=== PATIENT | male | born 1975 | race Caucasian/White ===

== ENCOUNTER 2020-03-14 16:13 | Emergency (ER) | payer MEDICARE, MEDICAID ==
[~2020-03-14] VITALS: Ht 162.6 cm; Wt 83.9 kg
[2020-03-14] MEDS ORDERED: ONDANSETRON ODT8 MG PO (20:02)
[2020-03-14] MEDS ORDERED: OMEPRAZOLE20 MG PO (22:27)
[2020-03-14] MEDS ORDERED: PROMETHAZINE HC25 M1 PO (22:28)
[2020-03-14] MEDS ORDERED: ZANAFLEX4 MG PO (22:28)
[2020-03-14] MEDS ORDERED: GABAPENTIN300 MG PO (22:28)
[2020-03-14] MEDS ORDERED: DICYCLOMINE HCL10 MG PO (23:48)
== END 2020-03-14 20:14 | disposition home or self-care (01) ==
LOC: ED 16:13
DX: R19.7 Diarrhea, unspecified (principal); R11.10 Vomiting, unspecified; Z87.891 Personal history of nicotine dependence; Z88.0 Allergy status to penicillin
CPT/HCPCS: 76705; 80053; 81001; 83690; 85025; 96361; 96374; 96375; 99284-25; J1170; J1790; J2405; J7030

== ENCOUNTER 2020-03-14 22:05 | Emergency (ER) | payer MEDICARE, MEDICAID ==
[~2020-03-14] VITALS: Ht 162.6 cm; Wt 83.9 kg
[~2020-03-14 22:05] MED LIST: ONDANSETRON ODT8 MG PO
--- OUTSIDE RECORDS SUMMARY | 2020-03-14 22:10 | XMS ---
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 Melania VISIT COUNT (12 MO.) [address] TOTAL 4 NOTE: Visits indicate total known visits. ED/C VISIT TRACKING (12 MO.) 03/14/2020 22:05 [facility] [place] TYPE: Emergency COMPLAINT: - ABDOMINAL PAIN 03/14/2020 16:14 [facility] [place] TYPE: [place] COMPLAINT: - FEVER, VOMITING [facility] DIAGNOSES: 77936. ABD PAIN/VOMITTING . Epigastric pain 33910. Vomiting, unspecified 04/14/2019 14:59 [facility] [place] TYPE: Emergency DIAGNOSES: 73755. COUGHING UP BLACK PHLEGM CLAYTON LOOSING BALANCE . Cough . Headache . Acute frontal sinusitis, unspecified INPATIENT VISIT TRACKING (12 MO.) No inpatient visits to display in this time frame [email or web address]
[2020-03-14] MEDS ORDERED: OMEPRAZOLE20 MG PO (22:27)
[2020-03-14] MEDS ORDERED: ZANAFLEX4 MG PO (22:28)
[2020-03-14] MEDS ORDERED: PROMETHAZINE HC25 M1 PO (22:28)
[2020-03-14] MEDS ORDERED: GABAPENTIN300 MG PO (22:28)
[2020-03-14] MEDS ORDERED: DICYCLOMINE HCL10 MG PO (23:48)
== END 2020-03-14 23:58 | disposition home or self-care (01) ==
LOC: ED 22:05
DX: R10.11 Right upper quadrant pain (principal); R11.2 Nausea with vomiting, unspecified; R19.7 Diarrhea, unspecified; Z87.891 Personal history of nicotine dependence; Z88.0 Allergy status to penicillin; Z79.899 Other long term (current) drug therapy
CPT/HCPCS: 99283

== ENCOUNTER 2020-05-06 10:27 | Emergency (ER) | payer MEDICARE, OTHER ==
[~2020-05-06] VITALS: Ht 162.6 cm; Wt 83.9 kg
--- OUTSIDE RECORDS SUMMARY | ~2020-05-06 | XMS | Encounter Summary ---
Demographics + + + | Address | [address] | | | [place] [address] | + + + | Home Phone | | + + + | Preferred Language | Unknown | + + + | Marital Status | Single | + + + | Hoahaoism Affiliation | NRP | + + + | Race | White | + + + | Ethnic Group | Not or | + + + Author + + + | Author | [facility] | + + + | Organization | [facility] | + + + | Address | Unknown | + + + | Phone | Unavailable | + + + Support + + + + + | Name | Relationship | Address | Phone | + + + + + | Neda Santos | ECON | [place] | | | | | [address] | | + + + + + Care Team Providers + +------+ + | Care Alteration Workroom Supervisor Name | Role | Phone | + +------+ + | Nathalie Castillo | PCP | | + +------+ + Encounter Details +--------+ + + + + | Date | Type | Department | Care Team | Description | +--------+ + + + + | 11/19/ | Procedure - | [facility] [address] | Lora Cuellar, | Operative Report | | 2014 | | [address] | | | | | [place] | [place] | | | | | | [address] | | | +--------+ + + + + Social History + +-------+ +--------+------+ | Tobacco Use | Types | Packs/Day | Years | Date | | | | | Used | | + +-------+ +--------+------+ | Never Assessed | | | | | + +-------+ +--------+------+ + + + | Sex Assigned at | Date Recorded | | | | + + + | Not on file | | + + + + + + + | Job Start Date | Occupation | Industry | + + + + | Not on file | Not on file | Not on file | + + + + + + + + | Travel History | Travel Start | Travel End | + + + + + + | No recent travel history available. | + + documented as of this encounter Plan of Treatment Not on filedocumented as of this encounter Procedures + +--------+ + + + | Procedure Name | Priori | Date/Time | Associated Diagnosis | Comments | | | ty | | | | + +--------+ + + + | OPERATION RECORD | | 11/19/2014 | | Results for this | | | | 7:45 AM | | procedure are in the | | | | PST | | results section. | + +--------+ + + + documented in this [facility] Results OPERATION RECORD (11/19/2014 7:45 AM PST) + + | Transcriptions | + + | 11/20/2014 9:43 AM [facility] | | REPORT OF [id number] [place], [place] [address], [place] [address] | | CHUCK SANTOS ADAGLADIS OF PROCEDURE: 11/19/2014SURGEON: FELTON VogtOSURGEON: | | Allie Schultz, MDPROCEDURE: Screening colonoscopy.SEDATION: IV sedation with | | fentanyl 100 mcg, Versed 7 mg, and ketamine 70 mg.FINDINGS: There was a sessile polyp | | at 80 cm, which was biopsied, another pittinglesion around 80 cm in the transverse | | colon, which was also separately biopsied. Bowelprep was moderately good.INDICATIONS: | | Mr. Santos is a 39-year-old gentleman, who has a family history ofcolon cancer. His last | | colonoscopy was five years ago, and had polyps removedwhich were adenomatous. Risks of | | the procedure, including but not limited to,bleeding, perforation, missed lesion and | | complete exam was explained to him, andthe alternative of doing the varium enema, or | | capsule colonoscopy was explained,and he consented for the same.PREOPERATIVE DISCUSSION: | | PAR conference was held with the patient and thepermission slip was signed prior to | | beginning the procedure and initial vital signswere recorded on the anesthesia record. | | Vital signs were stable throughout theprocedure.DESCRIPTION OF PROCEDURE: With the | | patient on the endoscopy table in the supineposition, an IV was started. The patient's | | sedation was titrated with fentanyl andVersed, as per the anesthesia record. The | | patient was monitored with the pulseoximeter, BP cuff and EKG. The patient was then | | placed in the left lateraldecubitus position. External visual exam and rectal exam was | | normal.T he colonoscope was passed through the anus into therectum and distally through | | the remainder of the colon until the cecum wasidentified. The cecum was identified by | | visualizing the ileocecal valve,coalescence of tinea and the appendiceal orifice, as | | well as localization of thelight in the right lower quadrant. The colonoscope was then | | gradually removed,examining the mucosa circumferentially. Please see findings for | | details ofabnormalities or any manipulations performed. After the colonoscope was | | completed,the scope was removed. The patient tolerated the procedure well.The patient | | was discharged home to the care of family without having suffered anyapparent | | complications. Followup arrangements were made. They were informed tocall us if there | | was any vomiting, fever or abdominal pain.CHUCK SANTOS [id number] : | | [id number] DATE:AL/MedQDD: 11/19/2014 10:30:49DT: 11/20/2014 07:28:32Job | | #: [id number] Signed 11/30/14 | | 1419 | | | | | | | | | | | | | | Anooradha | | JOURDAN Cuellar JAMES [id number] : [id number] DATE: | |rectum and distally through the remainder of the colon until the cecum was | |identified. The cecum was identified by visualizing the ileocecal valve, | |coalescence of tinea and the appendiceal orifice, as well as localization of the | |light in the right lower quadrant. The colonoscope was then gradually removed, | |examining the mucosa circumferentially. Please see findings for details of | |abnormalities or any manipulations performed. After the colonoscope was completed, | |the scope was removed. The patient tolerated the procedure well. | | | |The patient was discharged home to the care of family without having suffered any | |apparent complications. Followup arrangements were made. They were informed to | |call us if there was any vomiting, fever or abdominal pain. | | | | | | | | | | | |CHUCK SANTOS | |[id number] : 77 | |[id number] | |ADMIT DATE: | | | | | | | | | |KAILEE/Gillian | | | | | | /[id number] | |Electronically Signed 11/30/14 1419 | | | | | | Lora Cuellar MD | | | | | | | | | | | | | | | | | | | | | | | | | | | | | | | | | | | | | | | | | | | | | | | | | | | | | | | | | | | | | | | | | | | | | | | | | | | | | | | | | | | | | | | | | | | |CHUCK SANTOS | |[id number] : 77 | |[phone] | |ADMIT DATE: | + + documented in this encounter Visit Diagnoses Not on filedocumented in this encounter"
--- OUTSIDE RECORDS SUMMARY | ~2020-05-06 | XMS | Encounter Summary ---
Demographics + + + | Address | [address] | | | [place] [address] | + + + | Home Phone | | + + + | Preferred Language | Unknown | + + + | Marital Status | Single | + + + | Christianity Affiliation | NRP | + + + | Race | White | + + + | Ethnic Group | Not or | + + + Author + + + | Author | [facility] | + + + | Organization | [facility] | + + + | Address | Unknown | + + + | Phone | Unavailable | + + + Support + + + + + | Name | Relationship | Address | Phone | + + + + + | Neda Castañeda | ECON | [place] | | | | | [phone] | | + + + + + Care Team Providers + +------+ + | Care Refrigerator Crater Name | Role | Phone | + +------+ + | Herbert Marie MD,MP[facility] | PCP | Unavailable | + +------+ + Reason for Visit + + + | Reason | Comments | + + + | Refill Request | Famotidine | + + + Encounter Details +--------+--------+ + + + | Date | Type | Department | Care Team | Description | +--------+--------+ + + + | 02/12/ | Refill | [facility] | Herbert Marie, | Refill Request | | 2017 | | Medicine [address] | ,[facility] | (Famotidine ) | | | | [place], | | | | | | [place] [address] | | | | | | [phone] | | | +--------+--------+ + + + Social History + +-------+ +--------+------+ | Tobacco Use | Types | Packs/Day | Years | Date | | | | | Used | | + +-------+ +--------+------+ | Former Smoker | | | | | + +-------+ +--------+------+ + +---+---+---+ | Smokeless Tobacco: | | | | | Never Used | | | | + +---+---+---+ + + +---------+ + | Alcohol Use | Drinks/Week | oz/Week | Comments | + + +---------+ + | No | 0 Standard drinks | 0.0 | | | | or equivalent | | | + + +---------+ + + + + | Sex Assigned at [...] Not on filedocumented as of this encounter Visit Diagnoses + + | Diagnosis | + + | Epigastric pain Abdominal pain, epigastric | + + documented in this encounter"
--- OUTSIDE RECORDS SUMMARY | ~2020-05-06 | XMS | Encounter Summary ---
Demographics + + + | Address | [address] | | | [place] [address] | + + + | Home Phone | | + + + | Preferred Language | Unknown | + + + | Marital Status | Single | + + + | Oriental Orthodox Affiliation | NRP | + + + | Race | White | + + + | Ethnic Group | Not or | + + + Author + + + | Author | [facility] | + + + | Organization | [facility] | + + + | Address | Unknown | + + + | Phone | Unavailable | + + + Support + + + + + | Name | Relationship | Address | Phone | + + + + + | Neda Castañeda | ECON | [place] | | | | | [address] | | + + + + + Care Team Providers + +------+ + | Care Boil Off Worker Name | Role | Phone | + +------+ + | Herbert Marie MD,MP[facility] | PCP | Unavailable | + +------+ + Reason for Visit + + + | Reason | Comments | + + + | Headache | | + + + | Lightheadedness | | + + + | Closed Head Injury | | + + + Encounter Details +--------+ + + + + | Date | Type | Department | Care Team | Description | +--------+ + + + + | 11/18/ | Emergency | Emergency | Carlin Gaspar, | | | 2016 | | Department at [facility] | MD [address] | | | | | [facility] [address] [place], [place] | | | | | [place], | [address] | | | | | [place] [address] | [phone] | | | | | [phone] | | | +--------+ + + + [...] + + documented as of this encounter Last Filed Vital Signs + + + + + | Vital Sign | Reading | Time Taken | Comments | + + + + + | Blood Pressure | 125/84 | 11/18/2016 4:18 PM | | | | | PST | | + + + + + | Pulse | 78 | 11/18/2016 4:18 PM | | | | | PST | | + + + + + | Temperature | 36.9 C (98.4 F) | 11/18/2016 4:18 PM | | | | | PST | | + + + + + | Respiratory Rate | 18 | 11/18/2016 4:18 PM | | | | | PST | | + + + + + | Oxygen Saturation | 100% | 11/18/2016 4:18 PM | | | | | PST | | + + + + + | Inhaled Oxygen | - | - | | | Concentration | | | | + + + + + | Weight | 86.2 kg (190 lb) | 11/18/2016 4:18 PM | | | | | PST | | + + + + + | Height | - | - | | + + + + + | Body Mass Index | 29.76 | 09/12/2016 9:49 AM | | | | | PST | | + + + + + documented in this encounter Discharge Instructions Instructions Carlin Gaspar MD - 11/18/2016 mandatory follow up with your primary care doctor as soon as possible. I would suggest jigar nickjessica to physical therapy for balance training and treatment for post concussive syndrome. Return to the ER for severe worsening of her condition or any other concerns. Take prescr ibed medication as directed. Postconcussion Syndrome: Care Instructions Your Care Instructions Postconcussion syndrome occurs after a blow to the head or body. Common symptoms are change s in the ability to concentrate, think, remember, or solve problems. Symptoms, which may inc lude headaches, personality changes, and dizziness, may be related to stress from the events surrounding the accident that caused the injury. Follow-up care is a avery part of your treatment and safety. Be sure to make and go to all ap pointments, and call your doctor if you are having problems. It's also a good idea to know y our test results and keep a list of the medicines you take. How can you care for yourself at home? Pain Rest is the best treatment for postconcussion syndrome. Do not drive if you have taken a prescription pain medicine. Rest in a quiet, dark room until your headache is gone. Close your eyes and try to relax or go to sleep. Do not watch TV or read. Put a cold, moist cloth or cold pack on the painful area for 10 to 20 minutes at a time. Put a thin cloth between the cold pack and your skin. Have someone gently massage your neck and shoulders. Take your medicines exactly as prescribed. Call your doctor if you think you are having a problem with your medicine. You will get more details on the specific medicines your docto r prescribes. Stress Try to reduce stress. Some ways to do this include: Taking slow, deep breaths. Soaking in a warm bath. Listening to soothing music. Taking a yoga class. Having a massage or back rub. Drinking a warm, nonalcoholic, noncaffeinated beverage. Get enough sleep. Eat a healthy, balanced diet. A balanced diet includes whole grains, dairy, fruits and v egetables, and protein. Eat a variety of foods from each of those groups so you get all the nutrients you need. Avoid alcohol and illegal drugs. Try relaxation exercises, such as breathing and muscle relaxation exercises. Talk to your doctor about counseling. It may help you deal with stress from your acciden t. When should you call for help? Watch closely for changes in your health, and be sure to contact your doctor if: You do not get better as expected. Your symptoms, such as headaches, trouble concentrating, or changes in mood, get worse. Where can you learn more? To learn more about "Postconcussion Syndrome: Care Instructions", log into your [employer] [place] acc ount at http://www.[facility]/LiveTop. You can enter Q768 in the "[employer] Library" search box. Not on [employer] [place]? Review the MyWebGrocert section of your After Visit Summary for directions on booker cardoza to sign up. Current as of: November 18, 2015 Content Version: [id number] [employer]. Care instructions adapted under license by [facility] [employer]. If you have questions about a medical condition or this instr uction, always ask your healthcare professional. [employer] disclaims any nina anty or liability for your use of this information. documented in this encounter Plan of Treatment Not on filedocumented as of this encounter Visit Diagnoses + + | Diagnosis | + + | Closed head injury, initial encounter - Primary | + + | Post concussive syndrome Postconcussion syndrome | + + | Vertigo Dizziness and giddiness | + + documented in this encounter Administered Medications + +--------+ +------+------+------+ | Medication Order | MAR | Action | Dose | Rate | Site | | | Action | Date | | | | + +--------+ +------+------+------+ | diazePAM (VALIUM) tablet 5 mg | Given | 11/18/19 | 5 mg | | | | 5 mg, oral, ONCE, 1 dose, Sun | | 17 4:47 | | | | | 11/18/16 at 1715 | | PM PST | | | | + +--------+ +------+------+------+ +---+---+ | | | +---+---+ + +-------+ +-------+---+---+ | meclizine (ANTIVERT) tablet 25 | Given | 11/18/19 | 25 mg | | | | mg 25 mg, oral, ONCE, 1 dose, | | 17 4:47 | | | | | 11/18/16 at 1715 | | PM PST | | | | + +-------+ +-------+---+---+ +---+---+ | | | +---+---+ documented in this encounter
--- OUTSIDE RECORDS SUMMARY | ~2020-05-06 | XMS | Encounter Summary ---
Demographics + + + | Address | [address] | | | [place] [address] | + + + | Home Phone | | + + + | Preferred Language | Unknown | + + + | Marital Status | Single | + + + | Sabianism Affiliation | NRP | + + + | Race | White | + + + | Ethnic Group | Not or | + + + Author + + + | Author | [facility] | + + + | Organization | [facility] | + + + | Address | Unknown | + + + | Phone | Unavailable | + + + Support + + + + + | Name | Relationship | Address | Phone | + + + + + | Neda Castañeda | ECON | [place] | | | | | [address] | | + + + + + Care Team Providers + +------+ + | Care Fish Worm Grower Name | Role | Phone | + +------+ + | Herbert Marie MD,MPH | PCP | Unavailable | + +------+ + Encounter Details +--------+ + + + + | Date | Type | Department | Care Team | Description | +--------+ + + + + | 06/21/ | MyChart | [facility] | Herbert Marie, | labs | | 2016 | Encounter | Medicine [address] | ,[facility] | | | [address] [place], | | | | | | [place] [address] | | | | | | [phone] | | | +--------+ + + + [...] filedocumented as of this encounter Visit Diagnoses Not on filedocumented in this encounter"
--- OUTSIDE RECORDS SUMMARY | ~2020-05-06 | XMS | Encounter Summary ---
Demographics + + + | Address | [address] | | | [place] [address] | + + + | Home Phone | | + + + | Preferred Language | Unknown | + + + | Marital Status | Single | + + + | Restorationist Affiliation | NRP | + + + | Race | White | + + + | Ethnic Group | Not or | + + + Author + + + | Author | [facility] | + + + | Organization | [facility] | + + + | Address | Unknown | + + + | Phone | Unavailable | + + + Support + + + + + | Name | Relationship | Address | Phone | + + + + + | Neda Castañeda | ECON | [place] | | | | | [address] | | + + + + + Care Team Providers + +------+ + | Care Aerodynamic Consultant Name | Role | Phone | + +------+ + | Miguel A Peraza PA-C | PCP | | + +------+ + Reason for Visit + + + | Reason | Comments | + + + | Low back pain | Left sided back pain radiating down hip. This started yesterday. | + + + Encounter Details +--------+ + + + + | Date | Type | Department | Care Team | Description | +--------+ + + + + | 12/10/ | Emergency | Emergency | | | | 2017 | | Department at [facility] | | | | | | Hospital [address] | | | | | | [place], | | | | | | [place] [address] | | | | | | [phone] | | | +--------+ + + + + Social History + +-------+ +--------+ + | Tobacco Use | Types | Packs/Day | Years | Date | | | | | Used | | + +-------+ +--------+ + | Former Smoker | | | | Quit: 03/08/2015 | + +-------+ +--------+ + + +---+---+---+ | Smokeless Tobacco: | | [...] + + + | Blood Pressure | 140/91 | 12/10/2017 2:09 PM | | | | | PDT | | + + + + + | Pulse | 80 | 12/10/2017 2:09 PM | | | | | PDT | | + + + + + | Temperature | 36.8 C (98.2 F) | 12/10/2017 2:09 PM | | | | | PDT | | + + + + + | Respiratory Rate | 16 | 12/10/2017 2:09 PM | | | | | PDT | | + + + + + | Oxygen Saturation | 96% | 12/10/2017 2:09 PM | | | | | PDT | | + + + + + | Inhaled Oxygen | - | - | | | Concentration | | | | + + + + + | Weight | - | - | | + + + + + | Height | - | - | | + + + + + | Body Mass Index | - | - | | + + + + + documented in this encounter Plan of Treatment Not on filedocumented as of this encounter Visit Diagnoses Not on filedocumented in this encounter"
--- OUTSIDE RECORDS SUMMARY | ~2020-05-06 | XMS | Encounter Summary ---
Demographics + + + | Address | [address] | | | [place] [address] | + + + | Home Phone | | + + + | Preferred Language | Unknown | + + + | Marital Status | Single | + + + | Synagogue Affiliation | NRP | + + + | Race | White | + + + | Ethnic Group | Not or | + + + Author + + + | Author | [facility] | + + + | Organization | [facility] | + + + | Address | Unknown | + + + | Phone | Unavailable | + + + Support + + + + + | Name | Relationship | Address | Phone | + + + + + | Neda Castañeda | ECON | [place] | | | | | [address] | | + + + + + Care Team Providers + +------+ + | Care Manager Sterile Name | Role | Phone | + +------+ + | Herbert Marie MD,MPH | PCP | Unavailable | + +------+ + Reason for Visit + + + | Reason | Comments | + + + | Prediabetes | follow-up | + + + | Hyperlipidemia | follow-up | + + + Encounter Details +--------+---------+ + + + | Date | Type | Department | Care Team | Description | +--------+---------+ + + + | 03/13/ | Office | [facility] | Herbert Marie, | Prediabetes (Primary | | 2017 | Visit | Medicine [address] | MD,MPH | Dx); Mixed | | | | [address] [place], | | hyperlipidemia; | | | | [place] [id number] | | Elevated ALT | | | | [phone] | | measurement; | | | | | | Hypocalcemia; | | | | | | Recurrent kidney | | | | | | stones | +--------+---------+ + + + Social History + +-------+ [...] + + + | Blood Pressure | 110/78 | 03/13/2017 8:44 AM | | | | | PDT | | + + + + + | Pulse | 60 | 03/13/2017 8:44 AM | | | | | PDT | | + + + + + | Temperature | - | - | | + + + + + | Respiratory Rate | - | - | | + + + + + | Oxygen Saturation | 98% | 03/13/2017 8:44 AM | | | | | PDT | | + + + + + | Inhaled Oxygen | - | - | | | Concentration | | | | + + + + + | Weight | 85.7 kg (189 lb) | 03/13/2017 8:44 AM | | | | | PDT | | + + + + + | Height | 162.6 cm (5' 4") | 03/13/2017 8:44 AM | | | | | PDT | | + + + + + | Body Mass Index | 32.44 | 03/13/2017 8:44 AM | | | | | PDT | | + + + + + documented in this encounter Patient Instructions Patient Instructions Herbert Marie MD,MPH - 03/13/2017 9:00 AM PDTTest results will be r eleased through [employer] or sent as a letter. It may take 4-5 days for the results to be released. Call us if you do not receive results in 2 weeks. Thanks. Herbert Marie MD, MPH 03/13/17 9:20 AM documented in this encounter Progress Notes Herbert Marie MD,MPH - 03/13/2017 9:00 AM PDT Chief Complaint Patient presents with Prediabetes follow-up Hyperlipidemia follow-up Assessment Assessment / Plan PREDIABETES Controlled? - unknown - need current lab HYPERLIPIDEMIA Controlled? - unknown Mendez was seen today for prediabetes and hyperlipidemia. Diagnoses and all orders for this visit: Prediabetes - HEMOGLOBIN A1C, BLOOD; Future Mixed hyperlipidemia - LIPID SET (TRIG, T CHOL, HDL, CALC LDL); Future Elevated ALT measurement Comments: normal since prior elevation Orders: - COMPLETE METABOLIC SET (NA,K,CL,CO2,BUN,CREAT,GLUC,CA,AST,ALT,BILI TOTAL,ALK PHOS,ALB ,PROT TOTAL); Future Hypocalcemia Comments: noted during recent admission Orders: - COMPLETE METABOLIC SET (NA,K,CL,CO2,BUN,CREAT,GLUC,CA,AST,ALT,BILI TOTAL,ALK PHOS,ALB ,PROT TOTAL); Future Recurrent kidney stones - UA, DIPSTICK W/ REFLEX; Future Return in about 6 months (around 09/12/2017) for PREDM, HLD. Patient Instructions Test results will be released through [employer] or sent as a letter. It may take 4-5 days for the results to be released. Call us if you do not receive results in 2 weeks. Thanks. Herbert Marie MD, MPH 03/13/17 9:20 AM Subjective Recent admission for vomiting, diarrhea Lipase elevated but returned to normal Hypocalcemia on last lab Thought due to viral GE Symptoms have completely resolved PREDIABETES = = = = = = = = = = Severity/control: A1c - Lab Results Component Value Date A1C 5.6 09/12/2016 Home monitoring: Patient's goal met? ===== A1c - <7 - unknown ADA 09 - goal <7 - check A1c twice a year if meeting goal and quarterly if not at goal or change therapy A1c goal options: <6.5 - short duration of diabetes, long life expectancy, and no significant CVD 6.5 - 7.0 - non adult with recent onset DMII 7.0 - 7.5 - older adult, newly diagnosed DMII, few comorbidities, and life expectancy > 10 years 7.5 - 8.0 - older adult, long-standing DM, moderate comorbidities, and life expectancy 5 - 10 years 8.0 - 9.0 - older adult, multiple comorbidities, functional or cognitive impairments, a nd life expectancy <5 years BLOOD PRESSURE= = = = = = = = = = BP Readings from Last 3 Encounters: 03/13/17 110/78 03/09/17 (!) 152/97 02/20/17 130/72 Patient's goal met? ===== BP - <140/90 - Yes HYPERCHOLESTEROLEMIA= = = = = = = = = = Lab Results Component Value Date CHOL 272 09/12/2016 LDL 200 09/12/2016 HDL 34 09/12/2016 TRI 190 09/12/2016 Started on atorvastatin after this result Patient's goal met? ===== LDL < 100 mg/dl (CHD or "CHD risk equivalent" is present) - ? TG <150 - ? HDL >40 - ? ATP IV - drug treatment Clinical ASCVD - statin to achieve >50% LDL reduction if <75 yo, 30-50% LDL reduction i f >75 yo Diabetes - statin to achieve >50% LDL reduction if 10-yr ASCVD risk >7.5%, 30-50% LDL reduction if 10-yr ASCVD risk <7.5% LDL >190 and no clinical ASVCD in 40-75 yo - statin to achieve >50% LDL reduction LDL 70-190 and no clinical ASCVD in 40-75 yo - statin to achieve 30-50% or >50% LDL red uction if 10-yr ASCVD risk >7.5% Adherence DM med(s) taken regularly Not prescribed HLD med taken regularly Yes Med side effects There are no noted side effects ROS/Target organ Lab Results Component Value Date CR 1.2 03/09/2017 CR 1.2 03/08/2017 CR 1.2 03/08/2017 Microalbumin RESUFAST(microalbumin,uralbumin,mpuofz08y,urcreatconc)@ not done Other CAD Risk Factors Smoking History Smoking Status Former Smoker Quit date: 03/08/2015 Smokeless Tobacco Never Used Weight Body mass index is 32.44 kg/(m^2). Wt Readings from Last 3 Encounters: 03/13/17 85.7 kg (189 lb) 03/08/17 82.4 kg (181 lb 10.5 oz) 02/20/17 87.5 kg (193 lb) Chemoprophylaxis ACEi/ARB - No ASA - No Immunizations Immunization History Administered Date(s) Administered Flu trivalent injectable pfree 10/11/2014 Influenza Injectable Quadrivalent (IIV4 P-Free) 06/21/2016 Td (adult), adsorbed 09/30/2010 Varicella 07/05/2016, 08/02/2016 Reviewed allergies, medications, past and family/social history, problem list. Review of Systems Constitutional: Negative for chills, diaphoresis, fever, malaise/fatigue and weight loss. HENT: Negative for congestion, ear discharge, ear pain, hearing loss, nosebleeds, sore thro at and tinnitus. Eyes: Negative for blurred vision, double vision, photophobia, pain, discharge and redness. Respiratory: Negative for cough, hemoptysis, sputum production, shortness of breath, wheezi ng and stridor. Cardiovascular: Negative for chest pain, palpitations, claudication and leg swelling. Gastrointestinal: Negative for abdominal pain, blood in stool, constipation, diarrhea, hear tburn, melena, nausea and vomiting. Genitourinary: Negative for dysuria, flank pain, frequency, hematuria and urgency. Musculoskeletal: Negative for back pain, falls, joint pain, myalgias and neck pain. Skin: Negative for itching and rash. Neurological: Negative for dizziness, tingling, tremors, sensory change, speech change, foc al weakness, seizures, loss of consciousness, weakness and headaches. Endo/Heme/Allergies: Negative for environmental allergies and polydipsia. Does not bruise/b leed easily. Psychiatric/Behavioral: Negative for depression, hallucinations, memory loss, substance abu se and suicidal ideas. The patient is not nervous/anxious and does not have insomnia. Objective Physical Exam BP 110/78 | Pulse 60 | Ht 1.626 m (5' 4") | Wt 85.7 kg (189 lb) | SpO2 98% | BMI 32.44 kg/( m^2) General : 41 y.o. male well developed, well nourished and in no acute distress HEENT: normocephalic, atraumatic. PER, mucus membranes moist Neck: supple, symmetrical, trachea midline, no adenopathy, thyroid normal, No carotid bru it Lungs: clear to auscultation bilaterally and no wheezes, rubs or rales Heart: regular rate and rhythm, S1, S2 normal, no murmur, click, rub or gallop Abdomen: soft, non-tender. Bowel sounds normal. No masses, noorganomegaly MSK: symmetrical with no deformity, with normal posture and gait, normal strength Ext: no pedal edema, no clubbing or cyanosis Neuro: Grossly normal, non-focal documented in this encounter Plan of Treatment Not on filedocumented as of this encounter Results LIPID SET (TRIG, T CHOL, HDL, CALC LDL) (03/13/2017 9:32 AM PDT) + +---------+ + + + | Component | Value | Ref Range | Performed | Pathologist | | | | | At | Signature | + +---------+ + + + | CHOLESTEROL | 181 | 101 - 199 mg/dL | [facility] | | | (LAB) | | | A MEDICAL | | | | | | CENTER | | + +---------+ + + + | TRIGLYCERID | 163 (H) | 45 - 150 mg/dL | [facility] | | | ES | | | A MEDICAL | | | | | | CENTER | | + +---------+ + + + | HDL | 36 (L) | >40 mg/dL | [facility] | | | CHOLESTEROL | | | A MEDICAL | | | | | | CENTER | | + +---------+ + + + | LDL | 112 (H) | <100 mg/dL | [facility] | | | CHOLESTEROL | | | A MEDICAL | | | , | | | CENTER | | | CALCULATED | | | | | + +---------+ + + + | VLDL | 33 (H) | 9 - 30 mg/dL | [facility] | | | CHOLESTEROL | | | A MEDICAL | | | , | | | CENTER | | | CALCULATED | | | | | + +---------+ + + + | NON-HDL | 145 (H) | <130 mg/dL | [facility] | | | CHOLESTEROL | | | A MEDICAL | | | | | | CENTER | | + +---------+ + + + | CARDIAC | 5 | | [facility] | | | RISK RATIO | | | A MEDICAL | | | | | | CENTER | | + +---------+ + + + | FASTING 8 | Yes | | [facility] | | | HOURS OR | | | A MEDICAL | | | MORE? | | | CENTER | | + +---------+ + + + + + | Specimen | + + | Blood - Blood | | (substance) | + + + + + | Narrative | Performed At | + + + | The goal for non-HDL cholesterol is a level 30 mg/dL higher than | [facility] | | that for LDL cholesterol. Cardiac Risk Ratio Interpretation: | MEDICAL [facility]ENTER | | Interpretation Cardiac Risk Ratio Below Average | | | Risk 0.0 - 3.4 Above Average Risk | | | 3.5 - 4.9 | | + + + + + + + + | Performing | Address | City/State/Zipcode | Phone Number | | Organization | | | | + + + + + | [facility] | [address] | [place], [place] | [phone] | | MEDICAL [facility]ENTER | Streets | [address] | | + + + + + COMPLETE METABOLIC SET (NA,K,CL,CO2,BUN,CREAT,GLUC,CA,AST,ALT,BILI TOTAL,ALK PHOS,ALB,PROT TOTAL) (03/13/2017 9:32 AM PDT) + +-------+ + + + | Component | Value | Ref Range | Performed | Pathologist | | | | | At | Signature | + +-------+ + + + | GLUCOSE, | 98 | 70 - 105 mg/dL | [facility] | | | PLASMA | | | A MEDICAL | | | (LAB) | | | CENTER | | + +-------+ + + + | BUN, PLASMA | 13 | 6 - 26 mg/dL | [facility] | | | (LAB) | | | A MEDICAL | | | | | | CENTER | | + +-------+ + + + | CREATININE, | 1.1 | 0.9 - 1.3 mg/dL | [facility] | | | PLASMA | | | A MEDICAL | | | | | | CENTER | | + +-------+ + + + | SODIUM, | 143 | 137 - 146 | [facility] | | | PLASMA | | mmol/L | A MEDICAL | | | (LAB) | | | CENTER | | + +-------+ + + + | POTASSIUM, | 4.3 | 3.4 - 5.3 | [facility] | | | PLASMA | | mmol/L | A MEDICAL | | | (LAB) | | | CENTER | | + +-------+ + + + | CHLORIDE, | 101 | 96 - 106 mmol/L | [facility] | | | PLASMA | | | A MEDICAL | | | (LAB) | | | CENTER | | + +-------+ + + + | TOTAL CO2, | 28 | 18 - 30 mmol/L | [facility] | | | PLASMA | | | A MEDICAL | | | (LAB) | | | CENTER | | + +-------+ + + + | CALCIUM, | 9.4 | 8.5 - 10.8 | [facility] | | | PLASMA | | mg/dL | A MEDICAL | | | (LAB) | | | CENTER | | + +-------+ + + + | BILIRUBIN | 0.2 | 0.2 - 1.2 mg/dL | [facility] | | | TOTAL | | | A MEDICAL | | | | | | CENTER | | + +-------+ + + + | TOTAL | 7.0 | 5.8 - 8.5 g/dL | [facility] | | | PROTEIN, | | | A MEDICAL | | | PLASMA | | | CENTER | | | (LAB) | | | | | + +-------+ + + + | ALBUMIN, | 4.3 | 3.5 - 5.0 g/dL | [facility] | | | PLASMA | | | A MEDICAL | | | (LAB) | | | CENTER | | + +-------+ + + + | ALK PHOS | 61 | 32 - 180 U/L | [facility] | | | | | | A MEDICAL | | | | | | CENTER | | + +-------+ + + + | AST(SGOT) | 13 | 10 - 41 U/L | [facility] | | | | | | A MEDICAL | | | | | | CENTER | | + +-------+ + + + | ALT (SGPT) | 28 | 7 - 51 U/L | [facility] | | | | | | A MEDICAL | | | | | | CENTER | | + +-------+ + + + | EGFR | >60 | >60 mL/min | [facility] | | | - | | | A MEDICAL | | | [facility] | | | CENTER | | + +-------+ + + + | EGFR NON | >60 | >60 mL/min | [facility] | | | -ALIX | | | A MEDICAL | | | [facility] | | | CENTER | | + +-------+ + + + | ANION GAP | 14 | 12 - 20 mmol/L | [facility] | | | | | | A MEDICAL | | | | | | CENTER | | + +-------+ + + + | BUN/CREATIN | 12 | 6 - 20 | [facility] | | | INE RATIO | | | A MEDICAL | | | | | | CENTER | | + +-------+ + + + | FASTING 8 | Yes | | [facility] | | | HOURS OR | | | A MEDICAL | | | MORE? | | | CENTER | | + +-------+ + + + + + | Specimen | + + | Blood - Blood | | (substance) | + + + + + | Narrative | Performed At | + + + | GFR is estimated using the MDRD equation recommended by the | [facility] | | National Kidney Disease Education Program. Estimated GFR | [facility] | | Interpretive Information: <60 mL/min/1.73 sq m | | | Chronic Kidney Disease <15 mL/min/1.73 sq m | | | Kidney Failure Estimated GFR greater that 60 mL/min/1.73 sq m is of | | | limited clinical value. The MDRD equation is not valid in the | | | following situations: - Patients under 18 years of age - Severe | | | malnutrition or obesity - Vegetarian diet - Rapidly changing kidney | | | function | | + + + + + + + + | Performing | Address | City/State/Zipcode | Phone Number | | Organization | | | | + + + + + | [facility] | [address] | [place], [place] | [phone] | | MEDICAL CENTER | [address] | [address] | | + + + + + HEMOGLOBIN A1C, BLOOD (03/13/2017 9:32 AM PDT) + +-------+ + + + | Component | Value | Ref Range | Performed | Pathologist | | | | | At | Signature | + +-------+ + + + | HEMOGLOBIN | 5.7 | % | [facility] | | | A1C | | | A MEDICAL | | | | | | CENTER | | + +-------+ + + + | ESTIMATED | 117 | mg/dL | [facility] | | | [place] | | | A MEDICAL | | | GLUCOSE | | | CENTER | | + +-------+ + + + + + | Specimen | + + | Blood - Blood | | (substance) | + + + + + | Narrative | Performed At | + + + | Glycohemoglobin Recommended Diabetic Ranges per DCCT & ADA: | [facility] | | Normal Range: <6% | MEDICAL CENTER | | Good Control: <7% | | | Additional action suggested: >8% Non-Diabetic | | | Ranges: 4-6% Environmental Services Worker's Glycohemoglobin | | | Diabetic Ranges: Normal Range: | | | 4.0-6.0% Good Control: | | | 6.0-8.0% Poor Control: | | | >8.0% | | + + + + + + + + | Performing | Address | City/State/Zipcode | Phone Number | | Organization | | | | + + + + + | [facility] | [address] | [place], [place] | [phone] | | [facility] [place] | [facility] | [address] | | + + + + + NEREIDA MORILLO (03/13/2017 9:30 AM PDT) + + + + + + | Component | Value | Ref Range | Performed | Pathologist | | | | | At | Signature | + + + + + + | COLOR(UR) | Yellow | Colorless, | [facility] | | | | | Straw, Yellow | [facility] | | | | | [facility] | | | | | | [facility] | | + + + + + + | APPEARANCE | Clear | Clear | [facility] | | | | | | [facility] | | | | | [facility] | | | | | | [facility] | | + + + + + + | PH (URINE) | 6.5 | 5.0 - 8.5 | [facility] | | | | | | [facility] | | | | | [facility] | | | | | | [facility] | | + + + + + + | PROTEIN, | Negative | Negative, Trace | [facility] | | | URINE | | | [facility] | | | [facility] | | | | | | [facility]INE | | + + + + + + | GLUCOSE | Negative | Negative | [facility] | | | (URINE) | | | [facility] | | | | | [facility] | | | | | | MEDICINE | | + + + + + + | KETONES | Negative | Negative | [facility] | | | | | | [facility] | | | | | [facility] | | | | | | [facility] | | + + + + + + | SPECIFIC | 1.015 | 1.005 - 1.030 | [facility] | | | GRAVITY | | | [facility] | | | | | [facility] | | | | | | [facility]INE | | + + + + + + | BILIRUBIN | Negative | Negative | [facility] | | | | | | [facility] | | | | | [facility] | | | | | | MEDICINE | | + + + + + + | BLOOD | Negative | Negative | [facility] | | | | | | [facility] | | | | | [facility] | | | | | | MEDICINE | | + + + + + + | NITRITES | Negative | Negative | [facility] | | | | | | [facility] | | | | | [facility] | | | | | | MEDICINE | | + + + + + + | LEUKOCYTE | Negative | Negative | [facility] | | | ESTERASE | | | [facility] | | | | | | [facility] | | | | | | MEDICINE | | + + + + + + | UROBILINOGE | Negative | Negative mg/dL | [facility] | | | N | | | [facility] | | | | | | FAMILY | | | | | | MEDICINE | | + + + + + + | SOURCE | Clean catch | | [facility] | | | (URINALYSIS | | | [facility] | | | ) | | | FAM[facility] | | | | | | MEDICINE | | + + + + + + + + | Specimen | + + | Urine - Urine | | specimen collection, | | clean catch | | (procedure) | + + + + + + + | Performing | Address | City/State/Zipcode | Phone Number | | Organization | | | | + + + + + | [facility] | [address] [place] [address] | [place] | | | FAMILY MEDICINE | | [address] | | + + + + + documented in this encounter Visit Diagnoses + + | Diagnosis | + + | Prediabetes - Primary Other abnormal glucose | + + | Mixed hyperlipidemia | + + | Elevated ALT measurement Nonspecific elevation of levels of transaminase or lactic | | acid dehydrogenase (LDH) | + + | Hypocalcemia | + + | Recurrent kidney stones Calculus of kidney | + + documented in this encounter
--- OUTSIDE RECORDS SUMMARY | ~2020-05-06 | XMS | Encounter Summary ---
Demographics + + + | Address | [address] | | | [place] [address] | + + + | Home Phone | | + + + | Preferred Language | Unknown | + + + | Marital Status | Single | + + + | Mormon Affiliation | NRP | + + + | Race | White | + + + | Ethnic Group | Not or | + + + Author + + + | Author | [facility] | + + + | Organization | [facility] | + + + | Address | Unknown | + + + | Phone | Unavailable | + + + Support + + + + + | Name | Relationship | Address | Phone | + + + + + | Neda Castañeda | ECON | [place] | | | | | [address] | | + + + + + Care Team Providers + +------+ + | Care Felt Hat Flanging Operator Name | Role | Phone | + +------+ + | Nathalie Castillo | PCP | | + +------+ + Encounter Details +--------+ + + + + | Date | Type | Department | Care Team | Description | +--------+ + + + + | 11/19/ | Results | NON-[facility] EP[facility] | Herbert Gallego, | | | 2012 | Only | Department | [address] | | | | | | [place] | | | | | | [address] | | | | | | [phone] | | | | | | | | +--------+ + + + [...] | + +--------+ + + + | NEREIDA MORILLO ONLY | Routin | 11/19/2012 | | Results for this | | | e | 9:33 PM | | procedure are in the | | | | PST | | results section. | + +--------+ + + + documented in this encounter Results NEREIDA MORILLO ONLY (11/19/2012 9:33 PM PST) + + + + + + | Component | Value | Ref Range | Performed | Pathologist | | | | | At | Signature | + + + + + + | COLOR(UR) | Yellow | YELLOW | [facility] | | | | | | A MEDICAL | | | | | | CENTER | | + + + + + + | APPEARANCE | Clear | CLEAR | [facility] | | | | | | A MEDICAL | | | | | | CENTER | | + + + + + + | SPECIFIC | 1.007 | 1.005 - 1.030 | [facility] | | | GRAVITY | | | A MEDICAL | | | | | | CENTER | | + + + + + + | PH(UR) | 6.0 | 5.0 - 8.0 | [facility] | | | | | | A MEDICAL | | | | | | CENTER | | + + + + + + | PROTEIN, UA | NEG | NEGATIVE | [facility] | | | | | | A MEDICAL | | | | | | CENTER | | + + + + + + | GLUCOSE, UA | NEG | NEGATIVE | [facility] | | | | | | A MEDICAL | | | | | | CENTER | | + + + + + + | KETONES, UA | NEG | NEGATIVE | [facility] | | | | | | A MEDICAL | | | | | | CENTER | | + + + + + + | BILIRUBIN | NEG | NEGATIVE | [facility] | | | | | | A MEDICAL | | | | | | CENTER | | + + + + + + | BLOOD | 1+ | NEGATIVE | [facility] | | | | | | A MEDICAL | | | | | | CENTER | | + + + + + + | NITRITES | NEG | NEGATIVE | [facility] | | | | | | A MEDICAL | | | | | | CENTER | | + + + + + + | LEUKOCYTE | NEG | NEGATIVE | [facility] | | | ESTERASE | | | A MEDICAL | | | | | | CENTER | | + + + + + + | UROBILINOGE | NEG | NEGATIVE MG/DL | [facility] | | | N | | | A MEDICAL | | | | | | CENTER | | + + + + + + | WHITE CELLS | NEG | 0 - 2 HPF | [facility] | | | | | | A MEDICAL | | | | | | CENTER | | + + + + + + | RED CELLS | 0-3 | 0 - 3 HPF | [facility] | | | | | | A MEDICAL | | | | | | CENTER | | + + + + + + | EPITHELIAL | RARE | RARE-MOD LPF | [facility] | | | CELLS | | | A MEDICAL | | | | | | CENTER | | + + + + + + | BACTERIA | MAIL OFFICER | NEG HPF | [facility] | | | | | | A MEDICAL | | | | | | CENTER | | + + + + + + | OTHER | MAIL OFFICER | | [facility] | | | | | | A MEDICAL | | | | | | CENTER | | + + + + + + | SOURCE | CLEAN CATCH | | [facility] | | | | | | A MEDICAL | | | | | | CENTER | | + + + + + + + + | Specimen | + + | | + + + + + + + | Performing | Address | City/State/Zipcode | Phone Number | | Organization | | | | + + + + + | [facility] | [address] | [place] | [phone] | | MEDICAL CENTER | [address] | [address] | | + + + + + documented in this encounter Visit Diagnoses Not on filedocumented in this encounter"
--- OUTSIDE RECORDS SUMMARY | ~2020-05-06 | XMS | Encounter Summary ---
Demographics + + + | Address | [address] | | | [place] [address] | + + + | Home Phone | | + + + | Preferred Language | Unknown | + + + | Marital Status | Single | + + + | Confucianist Affiliation | NRP | + + + | Race | White | + + + | Ethnic Group | Not or | + + + Author + + + | Author | [facility] | + + + | Organization | [facility] | + + + | Address | Unknown | + + + | Phone | Unavailable | + + + Support + + + + + | Name | Relationship | Address | Phone | + + + + + | Neda Castañeda | ECON | [place] | | | | | [address] | | + + + + + Care Team Providers + +------+ + | Care Underwater Hunter Trapper Name | Role | Phone | + +------+ + | Violeta Parker DO | PCP | | + +------+ + Reason for Referral Diagnostic Testing (Routine) + +--------+ + + + + | Status | Reason | Specialty | Diagnoses / | Referred By | Referred To | | | | | Procedures | Contact | Contact | + +--------+ + + + + | Authorized | | Cardiology | Diagnoses | Krystian, | Car Echo | | | | | Thoracic | Lit Anderson PA-C | [facility] [address] | | | | | aortic | [address] | | | | | aneurysm | [place] | [place] | | | | | without | Allison Parker | [place] | | | | | rupture | [place], [place] | [address] | | | | | (HCC) | [address] | floor | | | | | Procedures | Phone: | [place], [place] | | | | | TRANSTHORACI | [phone] | [address] | | | | | C | Fax: | Phone: | | | | | ECHOCARDIOGR | [phone] | [phone] | | | | | AM, ADULT | | | + +--------+ + + + + Encounter Details +--------+ + + + + | Date | Type | Department | Care Team | Description | +--------+ + + + + | 06/30/ | Public Speaking Instructor | Cardiothoracic | Lit Boland, | Thoracic aortic | | 2019 | | [facility] | PA-C [address] | aneurysm without | | | | [address] | [address] | rupture (HCC) | | | | Physician's | [place], [place] | (Primary Dx) | | | | Pavilion, 2nd floor | [address] | | | | | [place], [place] | [phone] | | | | | [address] | | | | | | [phone] | | | +--------+ + + + [...] as of this encounter Plan of Treatment + +------+--------+ + + | Name | Type | Priori | Associated Diagnoses | Order Schedule | | | | ty | | | + +------+--------+ + + | TRANSTHORACIC | ECG | Routin | Thoracic aortic | Ordered: 06/30/2019 | | ECHOCARDIOGRAM, | | e | aneurysm without | | | ADULT | | | rupture (HCC) | | + +------+--------+ + + documented as of this encounter Visit Diagnoses + + | Diagnosis | + + | Thoracic aortic aneurysm without rupture (HCC) - Primary Thoracic aneurysm without | | mention of rupture | + + documented in this encounter"
--- OUTSIDE RECORDS SUMMARY | ~2020-05-06 | XMS | Encounter Summary ---
Demographics + + + | Address | [address] | | | [place] [address] | + + + | Home Phone | | + + + | Preferred Language | Unknown | + + + | Marital Status | Single | + + + | Denominational Affiliation | NRP | + + + | Race | White | + + + | Ethnic Group | Not or | + + + Author + + + | Author | [facility] | + + + | Organization | [facility] | + + + | Address | Unknown | + + + | Phone | Unavailable | + + + Support + + + + + | Name | Relationship | Address | Phone | + + + + + | Neda Castañeda | ECON | [place] | | | | | [phone] | | + + + + + Care Team Providers + +------+ + | Care Coat Checker Name | Role | Phone | + +------+ + | Herbert Marie MD,[facility] | PCP | Unavailable | + +------+ + Encounter Details +--------+ + + + + | Date | Type | Department | Care Team | Description | +--------+ + + + + | 06/21/ | Orders Only | [facility] | Herbert Marie, | Elevated BP | | 2016 | | Medicine [address] [facility] | | | | | [address] [place], | | | | | | [place] [address] | | | | | | [phone] | | | +--------+ + + + [...] +--------+ + + + | NEREIDA MORILLO W/ | Routin | 06/21/2016 | Elevated BP | Results for this | | REFLEX | e | 1:48 PM | | procedure are in the | | | | PDT | | results section. | + +--------+ + + + documented in this encounter Results NEREIDA MORILLO W/ REFLEX (06/21/2016 1:48 PM PDT) + + + + + + [...] + + + | PH (URINE) | 8.5 | 5.0 - 8.5 | [place] | [...] + + + | SOURCE | [facility] | | [place] | | | (URINALYS[facility] | | | [facility] | | | ) | | | FAMILY | | | | | | MEDICINE | | + + + + + + + + | Specimen | + + | Urine | + + + + + + + | Performing | Address | City/State/Zipcode | Phone Number | | Organization | | | | + + + + + | [facility] | [address] [place] [address] | [place], [place] | | | FAMILY MEDICINE | | [phone] | | + + + + + documented in this encounter Visit Diagnoses + + | Diagnosis | + + | Elevated BP Elevated blood pressure reading without diagnosis of hypertension | + + documented in this encounter"
--- OUTSIDE RECORDS SUMMARY | ~2020-05-06 | XMS | Encounter Summary ---
Demographics + + + | Address | [address] | | | [place] [address] | + + + | Home Phone | | + + + | Preferred Language | Unknown | + + + | Marital Status | Single | + + + | Mosque Affiliation | NRP | + + + | Race | White | + + + | Ethnic Group | Not or | + + + Author + + + | Author | [facility] | + + + | Organization | [facility] | + + + | Address | Unknown | + + + | Phone | Unavailable | + + + Support + + + + + | Name | Relationship | Address | Phone | + + + + + | Neda Santos | ECON | [place] | | | | | [address] | | + + + + + Care Team Providers + +------+ + | Care Armored Machine Operator Name | Role | Phone | + +------+ + | Herbert Marie MD,MPH | PCP | Unavailable | + +------+ + Reason for Visit + + + | Reason | Comments | + + + | Nausea and vomiting | Since this morning. Reports mulitiple episodes of emesis, "I | | | can't keep anything down". Pt actively vomitting small amount of | | | bile in triage. | + + + | Diarrhea | Since this morning, loose brown stool. | + + + | Abdominal pain | "Feels like heartburn" to epigastric area, since this morning. | + + + AUTH/CERT +--------+--------+ + + + + | Status | Reason | Specialty | Diagnoses / | Referred By | Referred To | | | | | Procedures | Contact | Contact | +--------+--------+ + + + + | | | | | | | +--------+--------+ + + + + Encounter Details +--------+ + + + + | Date | Type | Department | Care Team | Description | +--------+ + + + + | 03/07/ | Hospital | [facility] | Herbert Gallego, | | | 2017 - | Encounter | Hospital [address] | | | | | [address] [place], | [place], [place] | | | 03/09/ | | [place] [address] | [address] | | | 2016 | | [phone] | [phone] | | | | | | | | | | | | Peter Rubin, | | | | | | [address] | | | | | | [place], [place] | | | | | | [address] | | | | | | [phone] | | | | | | | | | | | | Bhavesh Mays, | | | | | | [address] | | | | | | [place], [place] | | | | | | [address] | | | | | | [phone] | | | | | | | [...] + + + | Blood Pressure | 152/97 | 03/09/2017 2:32 PM | | | | | PDT | | + + + + + | Pulse | 70 | 03/09/2017 2:32 PM | | | | | PDT | | + + + + + | Temperature | 36.7 C (98 F) | 03/09/2017 2:32 PM | | | | | PDT | | + + + + + | Respiratory Rate | 18 | 03/09/2017 2:32 PM | | | | | PDT | | + + + + + | Oxygen Saturation | 97% | 03/09/2017 2:32 PM | | | | | PDT | | + + + + + | Inhaled Oxygen | - | - | | | Concentration | | | | + + + + + | Weight | 82.4 kg (181 lb 10.5 | 03/08/2017 5:41 AM | | | | oz) | PDT | | + + + + + | Height | 162.6 cm (5' 4") | 03/08/2017 5:41 AM | | | | | PDT | | + + + + + | Body Mass Index | 31.18 | 03/08/2017 5:41 AM | | | | | PDT | | + + + + + documented in this encounter Discharge Summaries Bhavesh Mays MD - 03/09/2017 2:22 PM PDT INTERNAL MEDICINE DISCHARGE SUMMARY HOSPITALIST SERVICE Attending Physician: Bhavesh Mays MD PCP: Herbert Marie MD,MPH Admission Date: 03/07/2017 Discharge Date: 03/09/17 Consulting Physician: None Primary Discharge Diagnoses: 1. Acute vomiting and diarrhea, resolved, thought to be viral gastroenteritis 2. Elevated lipase due to 1. 3. Hypercalcemia most likely due to dehydration Admitting Presentation: From the H&P Mr. Santos is a 41 yo gentleman who presents with 1 day of nausea, vomiting, diarrhea and ab dominal pain. He says that his abdominal pain stretches across the middle of his abdomen. He describes the pain as burning. The pain does not radiate anywhere. He has been having di arrhea and vomiting. There has been no blood in his diarrhea or vomit. He has had fevers a nd chills. No sick contacts. He was on Bactrim about a week ago for a rash behind his ear. He denies shortness of breath, dysuria, cough. No other recent changes to his medications . He denies any alcohol ingestion. Hospital Course: Patient was admitted from the ED with elevated lipase as well as mildly elevated calcium. There was question about pancreatitis. Patient was started on IV fluid resuscitation. His vomiting resolved almost immediately. He was still having significant diarrhea. Cultures w ere negative for C diff, O&P, stool cultures were negative. His diarrhea resolved. He was still having significant abdominal pain on March 08. CT scan was obtained. He did not have evidence of pancreatitis or colitis. Diet was slowly advanced and IV fluids were discontin ued. Patient was tolerating a very mild diet by discharge. It was felt that his symptoms ar e most likely related to acute viral gastroenteritis. His PTH was in the normal range. I s uspect the hypercalcemia is due to mild dehydration and not hyperparathyroidism. He did not appear to have pancreatitis but an elevation in his lipase to his severe vomiting. Major Diagnostic Studies & Procedures: Imaging: Ct Abdomen And Pelvis W Iv Contrast Result Date: 03/08/2017 IMPRESSION: 1. No evidence of acute or chronic pancreatitis. 2. Bila teral nonobstructing calyceal calculi. 3. Incidental findings of tiny simple hepatic cysts a nd small fat containing left inguinal hernia. Lab Results Component Value Date WBC 8.0 03/09/2017 HB 13.8 03/09/2017 HCT 40.8 03/09/2017 PLT 178 03/09/2017 MCV 86.0 03/09/2017 RDW 13.6 03/09/2017 Lab Results Component Value Date NA 140 03/09/2017 K 4.0 03/09/2017 CL 103 03/09/2017 BICARB 27 03/09/2017 BUN 10 03/09/2017 CR 1.2 03/09/2017 GLU 86 03/09/2017 CA 8.1 03/09/2017 ANIONGAP 10 03/09/2017 Discharge Vitals: BP 127/87 | Pulse 62 | Temp 36.7 C (98.1 F) | RR 16 | Ht 1.626 m (5' 4") | Wt 82.4 kg ( 181 lb 10.5 oz) | SpO2 96% | BMI 31.18 kg/(m^2) Discharge Examination: General Appearance: Alert/oriented, in NAD, coversational HEENT: PERRL, EOMI Respiratory: Unlabored, CTA bilaterally Cardiovascular: RRR, no M/R/G Abdomen: + BS, soft, nondistended, no longer tender Ext/Musculoskeletal: No LE edema Skin: No rashes Neurologic: Normal strength/sensation. Psychiatric: A/O x 3, mood/affect taqueria Discharge Medication List as of 03/09/2017 2:24 PM CONTINUE these medications which have NOT CHANGED Details atorvastatin 40 mg oral tablet Take 1 tablet by mouth once daily., Disp-90 tablet, R-3, eRx fluticasone 50 mcg/actuation nasal spray,suspension Instill 2 sprays into each nostril once daily., Disp-1 each, R-2, eRx gabapentin 300 mg oral capsule Take 2 capsules by mouth three times daily., Disp-540 capsul e, R-1, eRx tiZANidine 4 mg oral tablet Take 1 tablet by mouth every six hours as needed. Max: 36 mg / day., Disp-60 tablet, R-2, eRx Diet Regular Regular diet- There are no restrictions to your diet. You may eat or drink whatever you pr efer, though healthy food choices are recommended. Activity No activity restrictions Destination: Destination: Home Condition on Discharge Fair Future Appointments Provider Department Dept Phone Center 03/13/2017 9:00 AM Herbert Marie [facility] Family Medicine [phone] [facility] Schedule the following appointment(s) when you get home Follow up with ИРИНА REDDY, ANP,DNP. Specialties: Nurse Practitioner Adult Health, Family Medicine [place] [phone] Other Discharge Orders and Instructions Joe Reddy [phone] (for after your current doctor leaves) Outstanding labs/studies: Time spent in preparation of this discharge was greater than 30 minutes. MD Bhavesh Diamond MD Hospital Medicine Service [facility] documented in this encounter Progress Notes Bhavesh Mays MD - 03/08/2017 6:02 PM PDT INPATIENT HOSPITALIST PROGRESS NOTE Hospital Day: 1 Patient's Name: Chuck Santos Today's Date: 03/08/2017 24-Hr Events& Subjective: (Interval Hx): Patient was admitted last night with a constellation of vomiting, diarrhea, abdominal pain, elevated lipase, and mildly elevated calcium. This at all started yesterday. The patient does not drink and has not had a history of this in the past. No one else at home is sick. Current Medications: atorvastatin (LIPITOR) tablet 40 mg, 40 mg, oral, DAILY enoxaparin (LOVENOX) injection 40 mg, 40 mg, subcutaneous, QPM fluticasone (FLONASE) 50 mcg/actuation nasal spray 2 spray, 2 spray, both nostrils, DAILY gabapentin (NEURONTIN) capsule 600 mg, 600 mg, oral, TID HYDROmorphone (DILAUDID) injection 0.5 mg, 0.5 mg, intravenous, Q2H PRN loperamide (IMODIUM) capsule 2 mg, 2 mg, oral, QID PRN NaCl 0.9 % flush 2-10 mL, 2-10 mL, intravenous, BID NaCl 0.9 % flush 2-10 mL, 2-10 mL, intravenous, PRN ondansetron (ZOFRAN) injection 4 mg, 4 mg, intravenous, Q4H PRN sodium chloride 0.9% IV infusion, 25-50 mL, intravenous, PRN sodium chloride 0.9% IV infusion, 200 mL/hr, intravenous, CONTINUOUS tiZANidine (ZANAFLEX) tablet 4 mg, 4 mg, oral, Q6H PRN Physical Exam: Vitals (24 hr): Admit wt:Weight: 87.5 kg (193 lb) (03/07/17 2345) Weight change: Last Vitals: BP 125/76 | Pulse 70 | Temp 37.1 C (98.7 F) | RR 16 | Ht 1.626 m (5' 4") | Wt 82.4 kg (181 lb 10.5 oz) | SpO2 97% | BMI 31.18 kg/(m^2) 24 Hour Vital Min/Max: Systolic (24hrs), Av , Min:125 , Max:161 Diastolic (24hrs), Av, Min:76, Max:94 Pulse Min: 70 Max: 78 Temp Min: 36.6 C (97.9 F) Max: 37.1 C (98.8 F) SpO2 Min: 95 % Max: 100 % Intake/Output Summary (Last 24 hours) at 03/08/17 1802 Last data filed at 03/08/17 1500 Gross per 24 hour Intake 1793.33 ml Output 160 ml Net 1633.33 ml General Appearance: Alert/oriented, in NAD, conversational HEENT: PERRL, EOMI, no scleral icterus Respiratory: Unlabored, CTA bilaterally Cardiovascular: RR, no M/R/G Abdomen: + BS, mildly distended, diffusely tender, more so on the left side than on the rig ht side, he does have midepigastric tenderness, there is no Ortega sign. Extremities: without edema, no calf tenderness Musculoskeletal: Unremarkable Skin: No rashes Neurologic: Normal strength/sensation Psychiatric: A/O x 3, mood/affect normal Diagnostic Data: (Reviewed & Notable for:) CBC with diff last 72 hours (or 3 results) Recent Labs 03/08/17 0046 WBC 8.2 HB 15.6 HCT 46.6 PLT 208 NEUTROPERC 64.0 LYMPHPERC 26.8 MONOPERC 6.7 BASOPERC 0.6 EOSPERC 1.9 Chemistries: Last 72 Hours (or 3 results): Recent Labs 03/08/17 0046 03/08/17 0625 NA 142 144 K 4.0 3.9 CL 99 102 BICARB 30 28 BUN 12 12 CR 1.2 1.2 GLU 121* 129* CA 11.5* 10.1 PO4 -- 3.9 Results for CHUCK SANTOS ( ) as of 03/08/2017 18:09 Ref. Range 03/08/2017 06:25 03/08/2017 08:15 03/08/2017 10:43 03/08/2017 15:03 PTH, SERUM Latest Ref Range: 15 - 65 pg/mL 20 C diff negative Stool cultures pending Imaging: Ct Abdomen And Pelvis W Iv Contrast Result Date: 03/08/2017 IMPRESSION: 1. No evidence of acute or chronic pancreatitis. 2. Bila teral nonobstructing calyceal calculi. 3. Incidental findings of tiny simple hepatic cysts a nd small fat containing left inguinal hernia. Assessment and Plan 41-year-old gentleman admitted with constellation of abdominal pain, vomiting, diarrhea, mi ldly elevated lipase, mildly elevated calcium. Question whether his current elevation of ca lcium could cause pancreatitis. Possibilities for his current symptoms include viral, galls tones, infectious colitis, other colitis, gastritis, doubt ischemic, doubt acute surgical ab domen since he does not have WBC count and is not febrile. -obtain CT scan of the abdomen -stool for cultures and O&P -continue IV fluids -recheck labs in the morning Elevated lipase, likely related to acute illness. His CT scan does not given evidence of p ancreatitis. Mild hyperglycemia, resolved with hydration -PTH is normal -phosphorus is normal Diarrhea, most likely viral in nature but stool culture and O and P are pending MD Bhavesh Diamond MD [facility] Medicine Department of Medicine [facility] documented in this encounter Plan of Treatment Not on filedocumented as of this encounter Procedures + +--------+ + + + | Procedure Name | Priori | Date/Time | Associated Diagnosis | Comments | | | ty | | | | + +--------+ + + + | CBC ONLY | Urgent | 03/09/2017 | | Results for this | | | | 5:58 AM | | procedure are in the | | | | PDT | | results section. | + +--------+ + + + | CBC (HEMOGRAM ONLY) | Urgent | 03/09/2017 | | Results for this | | | | 5:58 AM | | procedure are in the | | | | PDT | | results section. | + +--------+ + + + | BASIC METABOLIC SET | Urgent | 03/09/2017 | | Results for this | | (NA, K, CL, TCO2, | | 5:58 AM | | procedure are in the | | BUN, CR, GLU, CA) | | PDT | | results section. | + +--------+ + + + | LIPASE, PLASMA | Routin | 03/09/2017 | | Results for this | | | e | 5:58 AM | | procedure are in the | | | | PDT | | results section. | + +--------+ + + + | CT ABDOMEN AND | Routin | 03/08/2017 | | Results for this | | PELVIS W IV CONTRAST | e | 3:03 PM | | procedure are in the | | | | PDT | | results section. | + +--------+ + + + | OVA AND PARASITE | Routin | 03/08/2017 | | Results for this | | EXAM | e | 10:43 AM | | procedure are in the | | | | PDT | | results section. | + +--------+ + + + | CULTURE, STOOL | Routin | 03/08/2017 | | Results for this | | | e | 10:43 AM | | procedure are in the | | | | PDT | | results section. | + +--------+ + + + | C. DIFFICILE TOXIN, | Urgent | 03/08/2017 | | Results for this | | W/REFLEX | | 8:15 AM | | procedure are in the | | CONFIRMATION IF | | PDT | | results section. | | INDETERMINATE | | | | | | RESULTS | | | | | + +--------+ + + + | BASIC METABOLIC SET | Urgent | 03/08/2017 | | Results for this | | (NA, K, CL, TCO2, | | 6:25 AM | | procedure are in the | | BUN, CR, GLU, CA) | | PDT | | results section. | + +--------+ + + + | HIV AB/AG SCREENING | Urgent | 03/08/2017 | | Results for this | | W/REFLEX TO CONFIRM | | 6:25 AM | | procedure are in the | | | | PDT | | results section. | + +--------+ + + + | PHOSPHORUS, PLASMA | Urgent | 03/08/2017 | | Results for this | | | | 6:25 AM | | procedure are in the | | | | PDT | | results section. | + +--------+ + + + | PTH, SERUM | Urgent | 03/08/2017 | | Results for this | | | | 6:25 AM | | procedure are in the | | | | PDT | | results section. | + +--------+ + + + | CALCIUM, IONIZED, | Urgent | 03/08/2017 | | Results for this | | WHOLE BLOOD | | 2:03 AM | | procedure are in the | | | | PDT | | results section. | + +--------+ + + + | CBC W/DIFF, REFLEX | Urgent | 03/08/2017 | | Results for this | | | | 12:46 AM | | procedure are in the | | | | PDT | | results section. | + +--------+ + + + | CBC AND AUTO DIFF | Urgent | 03/08/2017 | | Results for this | | | | 12:46 AM | | procedure are in the | | | | PDT | | results section. | + +--------+ + + + | COMPLETE METABOLIC | Urgent | 03/08/2017 | | Results for this | | SET | | 12:46 AM | | procedure are in the | | (NA,K,CL,CO2,BUN,CRE | | PDT | | results section. | | AT,GLUC,CA,AST,ALT,B | | | | | | FRED TOTAL,ALK | | | | | | PHOS,ALB,PROT TOTAL) | | | | | + +--------+ + + + | LIPASE, PLASMA | Urgent | 03/08/2017 | | Results for this | | | | 12:46 AM | | procedure are in the | | | | PDT | | results section. | + +--------+ + + + documented in this encounter Results CBC ONLY (03/09/2017 5:58 AM PDT) + + + + + + | Component | Value | Ref Range | Performed | Pathologist | | | | | At | Signature | + + + + + + | WBC COUNT | 8.0 | 3.5 - 10.8 K/cu | [facility] | | | | | mm | A MEDICAL | | | | | | CENTER | | + + + + + + | RED CELL | 4.74 | 4.50 - 6.00 | [facility] | | | COUNT | | M/cu mm | A MEDICAL | | | | | | CENTER | | + + + + + + | HEMOGLOBIN | 13.8 | 13.5 - 17.5 | [facility] | | | | | g/dL | A MEDICAL | | | | | | CENTER | | + + + + + + | HEMATOCRIT | 40.8 (L) | 41.0 - 53.0 % | [facility] | | | | | | A MEDICAL | | | | | | CENTER | | + + + + + + | MCV | 86.0 | 80.0 - 96.0 fL | [facility] | | | | | | A MEDICAL | | | | | | CENTER | | + + + + + + | MCH | 29.1 | 28.0 - 34.7 pg | [facility] | | | | | | A MEDICAL | | | | | | CENTER | | + + + + + + | MCHC | 33.9 | 33.0 - 35.5 | [facility] | | | | | g/dL | A MEDICAL | | | | | | CENTER | | + + + + + + | RDW | 13.6 | 11.5 - 15.0 % | [facility] | | | | | | A MEDICAL | | | | | | CENTER | | + + + + + + | PLATELET | 178 | 150 - 400 K/cu | [facility] | | | COUNT | | mm | A MEDICAL | | | | | | CENTER | | + + + + + + | MPV | 8.0 | 7.5 - 11.2 fL | [facility] | | | | | | A MEDICAL | | | | | | CENTER | | + + + + + + + + | Specimen | + + | Blood - Blood | | (substance) | + + + + + | Narrative | Performed At | + + + | No reflex rules apply to this test. | [facility] | | | [facility] | + + + + + + + + | Performing | Address | City/State/Zipcode | Phone Number | | Organization | | | | + + + + + | [facility] | And | [place] | [phone] | | [facility] [place] | [facility] | [address] | | + + + + + LIPASE, PLASMA (03/09/2017 5:58 AM PDT) + +-------+ + + + | Component | Value | Ref Range | Performed | Pathologist | | | | | At | Signature | + +-------+ + + + | LIPASE | 41 | 5 - 57 U/L | [facility] | | | (LAB) | | | A MEDICAL | | | | | | CENTER | | + +-------+ + + + + + | Specimen | + + | Blood - Blood | | (substance) | + + + + + + + | Performing | Address | City/State/Zipcode | Phone Number | | Organization | | | | + + + + + | [facility] | [address] | [place] | [phone] | | MEDICAL [facility]ENTER | [address] | [address] | | + + + + + BASIC METABOLIC SET (NA, K, CL, TCO2, BUN, CR, GLU, CA) (03/09/2017 5:58 AM PDT) + +---------+ + + + | Component | Value | Ref Range | Performed | Pathologist | | | | | At | Signature | + +---------+ + + + | GLUCOSE, | 86 | 70 - 105 mg/dL | [facility] | | | PLASMA | | | A MEDICAL | | | (LAB) | | | CENTER | | + +---------+ + + + | BUN, PLASMA | 10 | 6 - 26 mg/dL | [facility] | | | (LAB) | | | A MEDICAL | | | | | | CENTER | | + +---------+ + + + | CREATININE, | 1.2 | 0.9 - 1.3 mg/dL | [facility] | | | PLASMA | | | A MEDICAL | | | | | | CENTER | | + +---------+ + + + | SODIUM, | 140 | 137 - 146 | [facility] | | | PLASMA | | mmol/L | A MEDICAL | | | (LAB) | | | CENTER | | + +---------+ + + + | POTASSIUM, | 4.0 | 3.4 - 5.3 | [facility] | | | PLASMA | | mmol/L | A MEDICAL | | | (LAB) | | | CENTER | | + +---------+ + + + | CHLORIDE, | 103 | 96 - 106 mmol/L | [facility] | | | PLASMA | | | A MEDICAL | | | (LAB) | | | CENTER | | + +---------+ + + + | TOTAL CO2, | 27 | 18 - 30 mmol/L | [facility] | | | PLASMA | | | A MEDICAL | | | (LAB) | | | CENTER | | + +---------+ + + + | CALCIUM, | 8.1 (L) | 8.5 - 10.8 | [facility] | | | PLASMA | | mg/dL | A MEDICAL | | | (LAB) | | | CENTER | | + +---------+ + + + | BUN/CREATIN | 8 | 6 - 20 | [facility] | | | [facility] | | | A MEDICAL | | | | | | CENTER | | + +---------+ + + + | EGFR | >60 | >60 mL/min | [facility] | | | - | | | A MEDICAL | | | [facility] | | | CENTER | | + +---------+ + + + | EGFR NON | >60 | >60 mL/min | [facility] | | | -[facility] | | | A MEDICAL | | | [facility] | | | CENTER | | + +---------+ + + + | ANION GAP | 10 (L) | 12 - 20 mmol/L | [facility] | | | | | | A MEDICAL | | | | | | CENTER | | + +---------+ + + + + + | Specimen | + + | Blood - Blood | | (substance) | + + + + + + + | Performing | Address | City/State/Zipcode | Phone Number | | Organization | | | | + + + + + | [facility] | And | [place] | [phone] | | MEDICAL [facility] | [place] | [address] | | + + + + + CT ABDOMEN AND PELVIS W IV CONTRAST (03/08/2017 3:03 PM PDT) + + | Specimen | + + | | + + + + + | Narrative | Performed At | + + + | [address] | [facility] | | [place] [address] [facility] | | [phone] Name: CHUCK SANTOS Phys: | RADIOLOGY | | BHAVESH MAYS : 1975 Sex: M | | | CSN: [id number] MR# [id number] Exam Date: | | | 03/08/2017 EXAM: CT ABDOMEN AND PELVIS WITH CONTRAST CLINICAL | | | HISTORY: Pancreatitis, abdominal pain and diarrhea. COMPARISON: | | | None available. TECHNIQUE: Axial CT images of the abdomen and | | | pelvis were obtained following the uneventful administration of 100.0 | | | cc of Omnipaque-300 IV contrast and 100 cc of water. Coronal and | | | sagittal multiplanar reformations were generated. Dose reduction | | | techniques, including automatic exposure control (AutomA and | | | SmartmA), organ dose modulation and adaptive statistical iterative | | | reconstruction (ASiR) were utilized. FINDINGS: Lung bases: Clear. | | | Liver: The portal vein is patent. There are multiple tiny | | | subcentimeter lesions within both hepatic lobes, likely small cysts. | | | Gallbladder and biliary tree: Normal without calcified | | | gallstones. No intra or extrahepatic biliary ductal dilation. | | | Pancreas: Normal without edema or surrounding peripancreatic | | | inflammatory change. Spleen: Normal. Adrenal glands: Normal. | | | Kidneys and ureters: There is no hydroureteronephrosis, mass or | | | perinephric inflammatory fat stranding. Nonobstructing | | | calyceal/infundibular calculi are present in the left upper pole, | | | measuring 3 mm x 4 mm and 2 mm x 4 mm (series 5, images 132 and 133) | | | as well as the left lower pole, measuring 2 mm x 2 mm (series 5, | | | image 165). There is a 2 mm x 3 mm nonobstructing calyceal | | | calculus in the upper pole of the right kidney (series 5, image 148), | | | the mid right kidney, measuring 1 mm x 2 mm (series 5, image 158) | | | and an anterior calyx within the lower pole, measuring 2 mm x 3 mm | | | (series 5, image 172). Bowel and mesentery: Normal. No | | | evidence of obstruction, wall thickening or adjacent inflammatory | | | change.Fluid-filled small and large bowel is present. Abdominal | | | wall: There is a small fat containing left inguinal hernia. | | | Otherwise, normal. Lymph nodes: No pathologically enlarged | | | retroperitoneal, mesenteric, or pelvic lymph adenopathy. | | | Peritoneum: No pneumoperitoneum or ascites. Retroperitoneum: | | | Normal. Vascular structures: Normal. Appendix: Not | | | definitively visualized with no secondary signs of acute | | | appendicitis. Urinary bladder: Normal. Reproductive organs: | | | The prostate and seminal vesicles are normal. Bones: There is mild | | | L5-S1 disc space narrowing, mild diffuse disc bulge and mild | | | anterior and posterior endplate marginal spurring. IMPRESSION: | | | 1. No evidence of acute or chronic pancreatitis. 2. Bilateral | | | nonobstructing calyceal calculi. 3. Incidental findings of tiny | | | simple hepatic cysts and small fat containing left inguinal hernia. | | | REPORT SIGNED IN OTHER VENDOR SYSTEM 03/08/2017 Reported | | | by: WADE MARTÍNEZ MD Electronically signed by: WADE | | | MD TANYA Transcribed Date/Time: 03/08/2017 17:10 | | | Police Officer Crime Prevention: FLUENCY | | + + + + + | Procedure Note | + + | Interface, Radiology Results - 03/08/2017 5:14 PM PDT [address] | | [place] [address] | | Name: CHUCK SANTOS Phys: BHAVESH MAYS : 1975 Sex: M | | CSN: [id number] MR# [id number] Exam Date: 03/08/2017 EXAM:CT ABDOMEN AND PELVIS | | WITH CONTRAST CLINICAL HISTORY:Pancreatitis, abdominal pain and diarrhea. | | COMPARISON:None available. TECHNIQUE:Axial CT images of the abdomen and pelvis were | | obtained following theuneventful administration of 100.0 cc of Omnipaque-300 IV | | contrastand 100 cc of water. Coronal and sagittal multiplanar reformationswere | | generated. Dose reduction techniques, including automaticexposure control (AutomA and | | SmartmA), organ dose modulation andadaptive statistical iterative reconstruction (ASiR) | | were utilized. FINDINGS:Lung bases: Clear. Liver: The portal vein is patent. There are | | multiple tinysubcentimeter lesions within both hepatic lobes, likely small cysts. | | Gallbladder and biliary tree: Normal without calcified gallstones.No intra or | | extrahepatic biliary ductal dilation. Pancreas: Normal without edema or surrounding | | peripancreaticinflammatory change. Spleen: Normal. Adrenal glands: Normal. Kidneys and | | ureters: There is no hydroureteronephrosis, mass orperinephric inflammatory fat | | stranding. Nonobstructingcalyceal/infundibular calculi are present in the left upper | | pole,measuring 3 mm x 4 mm and 2 mm x 4 mm (series 5, images 132 and 133)as well as the | | left lower pole, measuring 2 mm x 2 mm (series 5,image 165). There is a 2 mm x 3 mm | | nonobstructing calyceal calculus in the upperpole of the right kidney (series 5, image | | 148), the mid right kidney,measuring 1 mm x 2 mm (series 5, image 158) and an anterior | | calyxwithin the lower pole, measuring 2 mm x 3 mm (series 5, image 172). Bowel and | | mesentery: Normal. No evidence of obstruction, wallthickening or adjacent inflammatory | | change.Fluid-filled small andlarge bowel is present. Abdominal wall: There is a small | | fat containing left inguinal hernia.Otherwise, normal. Lymph nodes: No pathologically | | enlarged retroperitoneal, mesenteric,or pelvic lymph adenopathy. Peritoneum: No | | pneumoperitoneum or ascites. Retroperitoneum: Normal. Vascular structures: Normal. | | Appendix: Not definitively visualized with no secondary signs ofacute appendicitis. | | Urinary bladder: Normal. Reproductive organs: The prostate and seminal vesicles are | | normal. Bones: There is mild L5-S1 disc space narrowing, mild diffuse discbulge and mild | | anterior and posterior endplate marginal spurring. IMPRESSION: 1. No evidence of acute | | or chronic pancreatitis.2. Bilateral nonobstructing calyceal calculi.3. Incidental | | findings of tiny simple hepatic cysts and small fatcontaining left inguinal hernia. | | REPORT SIGNED IN OTHER VENDOR SYSTEM 03/08/2017 Reported by: WADE MARTÍNEZ MD | | Electronically signed by: WADE MARTÍNEZ MD Transcribed Date/Time: 03/08/2017 | | 17:10Transcriptionist: FLUENCY | |No intra or extrahepatic biliary ductal dilation. | | | |Pancreas: Normal without edema or surrounding peripancreatic | |inflammatory change. | | | |Spleen: Normal. | | | |Adrenal glands: Normal. | | | |Kidneys and ureters: There is no hydroureteronephrosis, mass or | |perinephric inflammatory fat stranding. Nonobstructing | |calyceal/infundibular calculi are present in the left upper pole, | |measuring 3 mm x 4 mm and 2 mm x 4 mm (series 5, images 132 and 133) | |as well as the left lower pole, measuring 2 mm x 2 mm (series 5, | |image 165). | | | |There is a 2 mm x 3 mm nonobstructing calyceal calculus in the upper | |pole of the right kidney (series 5, image 148), the mid right kidney, | |measuring 1 mm x 2 mm (series 5, image 158) and an anterior calyx | |within the lower pole, measuring 2 mm x 3 mm (series 5, image 172). | | | |Bowel and mesentery: Normal. No evidence of obstruction, wall | |thickening or adjacent inflammatory change.Fluid-filled small and | |large bowel is present. | | | |Abdominal wall: There is a small fat containing left inguinal hernia. | |Otherwise, normal. | | | |Lymph nodes: No pathologically enlarged retroperitoneal, mesenteric, | |or pelvic lymph adenopathy. | | | |Peritoneum: No pneumoperitoneum or ascites. | | | |Retroperitoneum: Normal. | | | |Vascular structures: Normal. | | | |Appendix: Not definitively visualized with no secondary signs of | |acute appendicitis. | | | |Urinary bladder: Normal. | | | |Reproductive organs: The prostate and seminal vesicles are normal. | | | |Bones: There is mild L5-S1 disc space narrowing, mild diffuse disc | |bulge and mild anterior and posterior endplate marginal spurring. | | | |IMPRESSION: | | | |1. No evidence of acute or chronic pancreatitis. | |2. Bilateral nonobstructing calyceal calculi. | |3. Incidental findings of tiny simple hepatic cysts and small fat | |containing left inguinal hernia. | | | | | | REPORT SIGNED IN OTHER VENDOR SYSTEM 03/08/2017 | |Reported by: WADE MARTÍNEZ MD | | | |Electronically signed by: WADE MARTÍNEZ MD | | | |Transcribed Date/Time: 03/08/2017 17:10 | |Police Officer Crime Prevention: VAL | | | | | | | + + + +---------+ + + | Performing | Address | City/State/[facility] | Phone Number | | Organization | | | | + +---------+ + + | [facility] | | | | | [facility] | | | | + +---------+ + + OVA AND PARASITE EXAM (03/08/2017 10:43 AM PDT) + + + + + + | Component | Value | Ref Range | Performed | Pathologist | | | | | At | Signature | + + + + + + | TRICHROME | SEE NOTEComment: OVA | | [facility] | | | (1) | AND PARASITES, [facility] AND | | DI[facility]NOST[facility] | | | | PERM SMEAR MICRO | | - [place] | | | | NUMBER: [id number] | | | | | | TEST STATUS: | | | | | | FINAL SPECIMEN | | | | | | SOURCE: STOOL | | | | | | SPECIMEN QUALITY: | | | | | | ADEQUATE | | | | | | CONCENTRATION 1: No | | | | | | ova or parasites seen | | | | | | TRICHROME 1: | | | | | | No ova or parasites seen | | | | | | | | | | | | Routine Ova and | | | | | | Parasite exam may not | | | | | | detect some | | | | | | | | | | | | parasites that | | | | | | occasionally cause | | | | | | diarrheal | | | | | | illness. | | | | | | Test code(s) 81469I | | | | | | (Cryptosporidium Ag., | | | | | | | | | | | | DFA) and/or 55057F | | | | | | (Cyclospora and Isospora | | | | | | Exam) | | | | | | may be | | | | | | ordered to detect these | | | | | | parasites. One | | | | | | | | | | | | negative sample does not | | | | | | necessarily rule out | | | | | | | | | | | | the presence of a | | | | | | parasitic infection. | | | | + + + + + + + + | Specimen | + + | Stool - Rectum | | structure (body | | structure) | + + + + + + + | Performing | Address | City/State/Zipcode | Phone Number | | Organization | | | | + + + + + | [facility] | [address] | [place] [address] | | | - [place] | [address] | | | + + + + + CULTURE, STOOL (03/08/2017 10:43 AM PDT) + + + + + + | Component | Value | Ref Range | Performed | Pathologist | | | | | At | Signature | + + + + + + | CULTURE | No Growth Stool | | [facility] | | | RESULT | Pathogens:Salmonella, | | A MEDICAL | | | STOOL | Shigella, Yersinia, | | CENTER | | | | Ecoli | | | | | | OH157,Campylobacter | | | | + + + + + + + + | Specimen | + + | Stool - Rectum | | structure (body | | structure) | + + + + + + + | Performing | Address | City/State/Zipcode | Phone Number | | Organization | | | | + + + + + | [facility] | And | [place] | [phone] | | [facility] | [address] | [address] | | + + + + + C. DIFFICILE TOXIN (03/08/2017 8:15 AM PDT) + + + + + + | Component | Value | Ref Range | Performed | Pathologist | | | | | At | Signature | + + + + + + | C.DIFFICILE | Negative for C. | Negative for C. | [facility] | | | TOXIN | difficile A/B Toxin | difficile A/B | A MEDICAL | | | | | Toxin | CENTER | | + + + + + + | C.DIFFICILE | Negative for C. | Negative for C. | [facility] | | | ANTIGEN | difficile A/B Antigen | difficile A/B | A MEDICAL | | | | | Antigen | CENTER | | + + + + + + + + | Specimen | + + | Stool - Rectum | | structure (body | | structure) | + + + + + + + | Performing | Address | City/State/Zipcode | Phone Number | | Organization | | | | + + + + + | [facility] | [address] | [place], [place] | [phone] | | MEDICAL CENTER | [address] | [address] | | + + + + + BASIC METABOLIC SET (NA, K, CL, TCO2, BUN, CR, GLU, CA) (03/08/2017 6:25 AM PDT) + +---------+ + + + | Component | Value | Ref Range | Performed | Pathologist | | | | | At | Signature | + +---------+ + + + | GLUCOSE, | 129 (H) | 70 - 105 mg/dL | [facility] | | | PLASMA | | | A MEDICAL | | | (LAB) | | | CENTER | | + +---------+ + + + | BUN, PLASMA | 12 | 6 - 26 mg/dL | [facility] | | | (LAB) | | | A MEDICAL | | | | | | CENTER | | + +---------+ + + + | CREATININE, | 1.2 | 0.9 - 1.3 mg/dL | [facility] | | | PLASMA | | | A MEDICAL | | | | | | CENTER | | + +---------+ + + + | SODIUM, | 144 | 137 - 146 | [facility] | | | PLASMA | | mmol/L | A MEDICAL | | | (LAB) | | | CENTER | | + +---------+ + + + | POTASSIUM, | 3.9 | 3.4 - 5.3 | [facility] | | | PLASMA | | mmol/L | A MEDICAL | | | (LAB) | | | CENTER | | + +---------+ + + + | CHLORIDE, | 102 | 96 - 106 mmol/L | [facility] | | | PLASMA | | | A MEDICAL | | | (LAB) | | | CENTER | | + +---------+ + + + | TOTAL CO2, | 28 | 18 - 30 mmol/L | [facility] | | | PLASMA | | | A MEDICAL | | | (LAB) | | | CENTER | | + +---------+ + + + | CALCIUM, | 10.1 | 8.5 - 10.8 | [facility] | | | PLASMA | | mg/dL | A MEDICAL | | | (LAB) | | | CENTER | | + +---------+ + + + | BUN/CREATIN | 10 | 6 - 20 | [facility] | | | [facility] | | | A MEDICAL | | | | | | CENTER | | + +---------+ + + + | EGFR | >60 | >60 mL/min | [facility] | | | - | | | A MEDICAL | | | [facility] | | | CENTER | | + +---------+ + + + | EGFR NON | >60 | >60 mL/min | [facility] | | | -[facility] | | | A MEDICAL | | | [facility] | | | CENTER | | + +---------+ + + + | ANION GAP | 14 | 12 - 20 mmol/L | [facility] | | | | | | A MEDICAL | | | | | | CENTER | | + +---------+ + + + + + | Specimen | + + | Blood - Blood | | (substance) | + + + + + + + | Performing | Address | City/State/Zipcode | Phone Number | | Organization | | | | + + + + + | [facility] | [address] | [place] | [phone] | | MEDICAL CENTER | [address] | [address] | | + + + + + HIV-1,2 AB/HIV-1 P24 AG SCRN, SERUM (03/08/2017 6:25 AM PDT) + + + + + + | Component | Value | Ref Range | Performed | Pathologist | | | | | At | Signature | + + + + + + | HIV-1,2 | NON-REACTIVEComment: | NON-REACTIVE | [facility] | | | AB/HIV-1 | HIV-1 antigen and | | DIAGNOSTICS | | | P24 AG | HIV-1/HIV-2 antibodies | | - [place] | | | SCREEN | were notdetected. There | | | | | | is no laboratory | | | | | | evidence of | | | | | | HIVinfection. PLEASE | | | | | | NOTE: This information | | | | | | has been disclosed toyou | | | | | | from records whose | | | | | | confidentiality may | | | | | | beprotected by state | | | | | | law. If your state | | | | | | requires suchprotection, | | | | | | then the state law | | | | | | prohibits you frommaking | | | | | | any further disclosure | | | | | | of the | | | | | | informationwithout the | | | | | | specific written consent | | | | | | of the personto whom it | | | | | | pertains, or as | | | | | | otherwise permitted by | | | | | | law.A general | | | | | | authorization for the | | | | | | release of medical | | | | | | orother information is | | | | | | NOT sufficient for this | | | | | | purpose. For | | | | | | additional information | | | | | | please refer | | | | | | [email or web address] | | | | | | [email or web address] | | | | | | 06(This link is being | | | | | | provided for | | | | | | informational/educationa | | | | | | l purposes only.) The | | | | | | performance of this | | | | | | assay has not been | | | | | | clinicallyvalidated in | | | | | | patients less than 2 | | | | | | years old. | | | | + + + + + + + + | Specimen | + + | Blood - Blood | | (substance) | + + + + + + + | Performing | Address | City/State/Zipcode | Phone Number | | Organization | | | | + + + + + | [facility] | [address] | [place] [address] | | | - [place] | [address] | | | + + + + + PTH, SERUM (03/08/2017 6:25 AM PDT) + +-------+ + + + | Component | Value | Ref Range | Performed | Pathologist | | | | | At | Signature | + +-------+ + + + | PTH, SERUM | 20 | 15 - 65 pg/mL | [facility] | | | | | | A MEDICAL | | | | | | CENTER | | + +-------+ + + + + + | Specimen | + + | Blood - Blood | | (substance) | + + + + + + + | Performing | Address | City/State/Zipcode | Phone Number | | Organization | | | | + + + + + | [facility] | And | [place], [place] | [phone] | | MEDICAL CENTER | [address] | [address] | | + + + + + PHOSPHORUS, PLASMA (03/08/2017 6:25 AM PDT) + +-------+ + + + | Component | Value | Ref Range | Performed | Pathologist | | | | | At | Signature | + +-------+ + + + | PHOSPHORUS, | 3.9 | 2.1 - 4.6 mg/dL | [facility] | | | PLASMA | | | A MEDICAL | | | (LAB) | | | CENTER | | + +-------+ + + + + + | Specimen | + + | Blood - Blood | | (substance) | + + + + + + + | Performing | Address | City/State/Zipcode | Phone Number | | Organization | | | | + + + + + | [facility] | [address] | [place] | [phone] | | [facility] [place] | [address] | [address] | | + + + + + CALCIUM, IONIZED, WHOLE BLOOD (03/08/2017 2:03 AM PDT) + + + + + + | Component | Value | Ref Range | Performed | Pathologist | | | | | At | Signature | + + + + + + | ADRIANE ICA, | 1.34 (H) | 1.10 - 1.30 | [facility] | | | WHOLE BLD | | mmol/L | A MEDICAL | | | | | | CENTER | | + + + + + + + + | Specimen | + + | Blood - Blood | | (substance) | + + + + + + + | Performing | Address | City/State/Zipcode | Phone Number | | Organization | | | | + + + + + | [facility] | [address] | [place] | [phone] | | MEDICAL CENTER | [address] | [address] | | + + + + + CBC AND AUTO DIFF (03/08/2017 12:46 AM PDT) + +-------+ + + + | Component | Value | Ref Range | Performed | Pathologist | | | | | At | Signature | + +-------+ + + + | WBC COUNT | 8.2 | 3.5 - 10.8 K/cu | [facility] | | | | | mm | A MEDICAL | | | | | | CENTER | | + +-------+ + + + | RED CELL | 5.43 | 4.50 - 6.00 | [facility] | | | COUNT | | M/cu mm | A MEDICAL | | | | | | CENTER | | + +-------+ + + + | HEMOGLOBIN | 15.6 | 13.5 - 17.5 | [facility] | | | | | g/dL | A MEDICAL | | | | | | CENTER | | + +-------+ + + + | HEMATOCRIT | 46.6 | 41.0 - 53.0 % | [facility] | | | | | | A MEDICAL | | | | | | CENTER | | + +-------+ + + + | MCV | 85.9 | 80.0 - 96.0 fL | [facility] | | | | | | A MEDICAL | | | | | | CENTER | | + +-------+ + + + | MCH | 28.8 | 28.0 - 34.7 pg | [facility] | | | | | | A MEDICAL | | | | | | CENTER | | + +-------+ + + + | MCHC | 33.5 | 33.0 - 35.5 | [facility] | | | | | g/dL | A MEDICAL | | | | | | CENTER | | + +-------+ + + + | RDW | 14.0 | 11.5 - 15.0 % | [facility] | | | | | | A MEDICAL | | | | | | CENTER | | + +-------+ + + + | PLATELET | 208 | 150 - 400 K/cu | [facility] | | | COUNT | | mm | A MEDICAL | | | | | | CENTER | | + +-------+ + + + | MPV | 7.5 | 7.5 - 11.2 fL | [facility] | | | | | | A MEDICAL | | | | | | CENTER | | + +-------+ + + + | NEUTROPHIL | 64.0 | 50.0 - 70.0 % | [facility] | | | % | | | A MEDICAL | | | | | | CENTER | | + +-------+ + + + | LYMPHOCYTE | 26.8 | 18.0 - 42.0 % | [facility] | | | % | | | A MEDICAL | | | | | | CENTER | | + +-------+ + + + | MONOCYTE % | 6.7 | 3.5 - 9.0 % | [facility] | | | | | | A MEDICAL | | | | | | CENTER | | + +-------+ + + + | EOS % | 1.9 | 1.0 - 3.0 % | [facility] | | | | | | A MEDICAL | | | | | | CENTER | | + +-------+ + + + | BASO % | 0.6 | 0.0 - 2.0 % | [facility] | | | | | | A MEDICAL | | | | | | CENTER | | + +-------+ + + + | NEUTROPHIL | 5.20 | 1.80 - 7.70 | [facility] | | | # | | K/cu mm | A MEDICAL | | | | | | CENTER | | + +-------+ + + + | LYMPHOCYTE | 2.20 | 1.00 - 4.80 | [facility] | | | # | | K/cu mm | A MEDICAL | | | | | | CENTER | | + +-------+ + + + | MONOCYTE # | 0.50 | 0.10 - 0.90 | [facility] | | | | | K/cu mm | A MEDICAL | | | | | | CENTER | | + +-------+ + + + | EOS # | 0.20 | 0.00 - 0.50 | [facility] | | | | | K/cu mm | A MEDICAL | | | | | | CENTER | | + +-------+ + + + | BASO # | 0.00 | 0.00 - 0.10 | [facility] | | | | | K/cu mm | A MEDICAL | | | | | | CENTER | | + +-------+ + + + + + | Specimen | + + | Blood - Blood | | (substance) | + + + + + + + | Performing | Address | City/State/Zipcode | Phone Number | | Organization | | | | + + + + + | [facility] | [address] | [place], [place] | [phone] | | MEDICAL CENTER | [address] | [address] | | + + + + + LIPASE, PLASMA (03/08/2017 12:46 AM PDT) + +---------+ + + + | Component | Value | Ref Range | Performed | Pathologist | | | | | At | Signature | + +---------+ + + + | LIPASE | 281 (H) | 5 - 57 U/L | [facility] | | | (LAB) | | | A MEDICAL | | | | | | CENTER | | + +---------+ + + + + + | Specimen | + + | Blood - Blood | | (substance) | + + + + + + + | Performing | Address | City/State/Zipcode | Phone Number | | Organization | | | | + + + + + | [facility] | [address] | [place], [place] | [phone] | | [facility] | [facility] | [address] | | + + + + + COMPLETE METABOLIC SET (NA,K,CL,CO2,BUN,CREAT,GLUC,CA,AST,ALT,BILI TOTAL,ALK PHOS,ALB,PROT TOTAL) (03/08/2017 12:46 AM PDT) + + + + + + | Component | Value | Ref Range | Performed | Pathologist | | | | | At | Signature | + + + + + + | GLUCOSE, | 121 (H) | 70 - 105 mg/dL | [facility] | | | PLASMA | | | A MEDICAL | | | (LAB) | | | CENTER | | + + + + + + | BUN, PLASMA | 12 | 6 - 26 mg/dL | [facility] | | | (LAB) | | | A MEDICAL | | | | | | CENTER | | + + + + + + | CREATININE, | 1.2 | 0.9 - 1.3 mg/dL | [facility] | | | PLASMA | | | A MEDICAL | | | | | | CENTER | | + + + + + + | SODIUM, | 142 | 137 - 146 | [facility] | | | PLASMA | | mmol/L | A MEDICAL | | | (LAB) | | | CENTER | | + + + + + + | POTASSIUM, | 4.0 | 3.4 - 5.3 | [facility] | | | PLASMA | | mmol/L | A MEDICAL | | | (LAB) | | | CENTER | | + + + + + + | CHLORIDE, | 99 | 96 - 106 mmol/L | [facility] | | | PLASMA | | | A MEDICAL | | | (LAB) | | | CENTER | | + + + + + + | TOTAL CO2, | 30 | 18 - 30 mmol/L | [facility] | | | PLASMA | | | A MEDICAL | | | (LAB) | | | CENTER | | + + + + + + | CALCIUM, | 11.5 (H) | 8.5 - 10.8 | [facility] | | | PLASMA | | mg/dL | A MEDICAL | | | (LAB) | | | CENTER | | + + + + + + | BILIRUBIN | 0.6 | 0.2 - 1.2 mg/dL | [facility] | | | TOTAL | | | A MEDICAL | | | | | | CENTER | | + + + + + + | TOTAL | 7.3 | 5.8 - 8.5 g/dL | [facility] | | | PROTEIN, | | | A MEDICAL | | | PLASMA | | | CENTER | | | (LAB) | | | | | + + + + + + | ALBUMIN, | 4.4 | 3.5 - 5.0 g/dL | [facility] | | | PLASMA | | | A MEDICAL | | | (LAB) | | | CENTER | | + + + + + + | ALK PHOS | 63 | 32 - 180 U/L | [facility] | | | | | | A MEDICAL | | | | | | CENTER | | + + + + + + | AST(SGOT) | 21 | 10 - 41 U/L | [facility] | | | | | | A MEDICAL | | | | | | CENTER | | + + + + + + | ALT (SGPT) | 45 | 7 - 51 U/L | [facility] | | | | | | A MEDICAL | | | | | | CENTER | | + + + + + + | EGFR | >60 | >60 mL/min | [facility] | | | - | | | A MEDICAL | | | [facility] | | [facility] | | + + + + + + | EGFR NON | >60 | >60 mL/min | [facility] | | | -[facility] | | | A MEDICAL | | | [facility] | | | CENTER | | + + + + + + | ANION GAP | 13 | 12 - 20 mmol/L | [facility] | | | | | | A MEDICAL | | | | | | CENTER | | + + + + + + | BUN/CREATIN | 10 | 6 - 20 | [facility] | | | [facility] | | [...] the MDRD equation recommended by the | [facility] | | National Kidney Disease Education Program. Estimated GFR | [facility] | | Interpretive Information: <60 mL/min/1.73 sq [...] | + + + + + | [facility] | And | [place] | [phone] | | [facility] | [facility] | [address] | | + + + + + documented in this encounter Visit Diagnoses + + | Diagnosis | + + | Acute pancreatitis, unspecified complication status, unspecified pancreatitis type - | | Primary | + + | Hypercalcemia | + + | Vomiting and diarrhea Vomiting alone | + + documented in this encounter Administered Medications + +--------+---------+------+------+------+ | Medication Order | MAR | Action | Dose | Rate | Site | | | Action | Date | | | | + +--------+---------+------+------+------+ + +---+ | acetaminophen (TYLENOL) tablet | | | 325-650 mg 325-650 mg, oral, | | | EVERY 4 HOURS NEEDED, Starting | | | 03/09/17 at 0751, Until Sat | | | 03/09/17 at 2041, mild pain | | + +---+ | | | + +---+ + +-------+ +-------+---+---+ | atorvastatin (LIPITOR) tablet | Given | 03/08/20 | 40 mg | | | | 40 mg 40 mg, oral, DAILY, First | | 17 9:02 | | | | | dose on Sat03/08/17 at 0900, Until | | AM PDT | | | | | Discontinued | | | | | | + +-------+ +-------+---+---+ +---+---+ | | | +---+---+ + +-------+ +-------+---+---+ | diphenhydrAMINE (BENADRYL) | Given | 03/08/20 | 25 mg | | | | injection 25 mg 25 mg, | | 17 12:50 | | | | | intravenous, ONCE, 1 dose, Fri | | AM PDT | | | | | 03/08/17 at 0115 | | | | | | + +-------+ +-------+---+---+ +---+---+ | | | +---+---+ + +-------+ +-------+---+---------+ | enoxaparin (LOVENOX) injection | Given | 03/08/20 | 40 mg | | Abdomen | | 40 mg 40 mg, subcutaneous, EVERY | | 17 9:58 | | | | | EVENING, First dose on Fri | | PM PDT | | | | | 03/08/17 at 2100, Until | | | | | | | Discontinued | | | | | | + +-------+ +-------+---+---------+ +---+---+ | | | +---+---+ + +-------+ + +---+---+ | fluticasone (FLONASE) 50 | Given | 03/08/20 | 2 sprays | | | | mcg/actuation nasal spray 2 spray | | 17 9:01 | | | | | 2 spray, both nostrils, DAILY, | | AM PDT | | | | | First dose on Sat03/08/17 at 0900, | | | | | | | Until Discontinued | | | | | | + +-------+ + +---+---+ +---+---+ | | | +---+---+ + +-------+ +--------+---+---+ | gabapentin (NEURONTIN) capsule | Given | 03/08/20 | 600 mg | | | | 600 mg 600 mg, oral, THREE TIMES | | 17 9:58 | | | | | DAILY, First dose on Sat03/08/17 | | PM PDT | | | | | at 0900, Until Discontinued | | | | | | + +-------+ +--------+---+---+ +-------+ +--------+---+---+ | Given | 03/08/20 | 600 mg | | | | | 17 3:19 | | | | | | PM PDT | | | | +-------+ +--------+---+---+ | Given | 03/08/20 | 600 mg | | | | | 17 9:02 | | | | | | AM PDT | | | | +-------+ +--------+---+---+ +---+---+ | | | +---+---+ + +-------+ +--------+---+---+ | HYDROmorphone (DILAUDID) | Given | 03/08/20 | 0.5 mg | | | | injection 0.5 mg 0.5 mg, | | 17 3:50 | | | | | intravenous, EVERY 20 MINUTES | | AM PDT | | | | | NEEDED, 6 doses, Starting Fri | | | | | | | 03/08/17 at 0236, Until Sat03/08/17 | | | | | | | at 0523, severe pain | | | | | | + +-------+ +--------+---+---+ +-------+ +--------+---+---+ | Given | 03/08/20 | 0.5 mg | | | | | 17 2:43 | | | | | | AM PDT | | | | +-------+ +--------+---+---+ +---+---+ | | | +---+---+ + +-------+ +--------+---+---+ | HYDROmorphone (DILAUDID) | Given | 03/09/20 | 0.5 mg | | | | injection 0.5 mg 0.5 mg, | | 17 7:43 | | | | | intravenous, EVERY 2 HOURS | | AM PDT | | | | | NEEDED, Starting 03/08/17 at | | | | | | | 0523, Until 03/09/17 at 0751, | | | | | | | severe pain | | | | | | + +-------+ +--------+---+---+ +-------+ +--------+---+---+ | Given | 03/09/20 | 0.5 mg | | | | | 17 3:42 | | | | | | AM PDT | | | | +-------+ +--------+---+---+ | Given | 03/08/20 | 0.5 mg | | | | | 17 9:58 | | | | | | PM PDT | | | | +-------+ +--------+---+---+ +---+---+ | | | +---+---+ + +-------+ +--------+---+---+ | iohexol (OMNIPAQUE) 300 mg | Given | 03/08/20 | 100 mL | | | | iodine/mL 100 mL 100 mL, | | 17 3:07 | | | | | intravenous, ONCE, 1 dose, Fri | | PM PDT | | | | | 03/08/17 at 1545 | | | | | | + +-------+ +--------+---+---+ +---+---+ | | | +---+---+ + +-------+ +------+---+---+ | loperamide (IMODIUM) capsule 2 | Given | 03/08/20 | 2 mg | | | | mg 2 mg, oral, FOUR TIMES DAILY | | 17 11:09 | | | | | NEEDED, Starting 03/08/17 at | | AM PDT | | | | | 0937, Until 03/09/17 at 2042, | | | | | | | diarrhea | | | | | | + +-------+ +------+---+---+ +---+---+ | | | +---+---+ + +-------+ +-------+---+---+ | metoclopramide HCl (REGLAN) | Given | 03/08/20 | 10 mg | | | | injection 10 mg 10 mg, | | 17 12:51 | | | | | intravenous, ONCE, 1 dose, Sat | | AM PDT | | | | | 03/08/17 at 0115 | | | | | | + +-------+ +-------+---+---+ +---+---+ | | | +---+---+ + +-------+ +-------+---+---+ | NaCl 0.9 % flush 2-10 mL 2-10 | Given | 03/09/20 | 10 mL | | | | mL, intravenous, TWICE DAILY, | | 17 8:42 | | | | | First dose on Sat03/08/17 at 0900, | | AM PDT | | | | | Until Discontinued | | | | | | + +-------+ +-------+---+---+ +-------+ +-------+---+---+ | Given | 03/08/20 | 10 mL | | | | | 17 10:00 | | | | | | PM PDT | | | | +-------+ +-------+---+---+ | Given | 03/08/20 | 10 mL | | | | | 17 9:02 | | | | | | AM PDT | | | | +-------+ +-------+---+---+ +---+---+ | | | +---+---+ + +-------+ +-------+---+---+ | NaCl 0.9 % flush 2-10 mL 2-10 | Given | 03/08/20 | 10 mL | | | | mL, intravenous, NEEDED, | | 17 7:14 | | | | | Starting 03/08/17 at 0523, | | PM PDT | | | | | Until 03/09/17 at 2042, line | | | | | | | patency per policy | | | | | | + +-------+ +-------+---+---+ +---+---+ | | | +---+---+ + +-------+ +------+---+---+ | ondansetron (ZOFRAN) injection | Given | 03/09/20 | 4 mg | | | | 4 mg 4 mg, intravenous, EVERY 4 | | 17 8:41 | | | | | HOURS NEEDED, Starting Fri | | AM PDT | | | | | 03/08/17 at 0523, Until 03/09/17 | | | | | | | at 2042, nausea/vomiting, first | | | | | | | line | | | | | | + +-------+ +------+---+---+ +-------+ +------+---+---+ | Given | 03/08/20 | 4 mg | | | | | 17 7:13 | | | | | | PM PDT | | | | +-------+ +------+---+---+ | Given | 03/08/20 | 4 mg | | | | | 17 6:13 | | | | | | AM PDT | | | | +-------+ +------+---+---+ +---+---+ | | | +---+---+ + +---------+ + +---+---+ | sodium chloride 0.9% IV | New Bag | 03/08/20 | 1,000 mL | | | | infusion 1,000 mL, intravenous, | | 17 12:51 | | | | | ONCE, 1 dose, 03/08/17 at 0045 | | AM PDT | | | | + +---------+ + +---+---+ +---+---+ | | | +---+---+ + +---------+ +-------+-------+---+ | sodium chloride 0.9% IV | New Bag | 03/09/20 | 200 | 200 | | | infusion 200 mL/hr, intravenous, | | 17 3:39 | mL/hr | mL/hr | | | CONTINUOUS, Starting 03/08/17 | | AM PDT | | | | | at 0600, Until 03/09/17 at | | | | | | | 0751 | | | | | | + +---------+ +-------+-------+---+ + + +-------+-------+---+ | Rate/Dose Verify | 03/08/20 | 200 | 200 | | | | 17 11:00 | mL/hr | mL/hr | | | | PM PDT | | | | + + +-------+-------+---+ | New Bag | 03/08/20 | 200 | 200 | | | | 17 10:36 | mL/hr | mL/hr | | | | PM PDT | | | | + + +-------+-------+---+ +---+---+ | | | +---+---+ documented in this encounter
--- OUTSIDE RECORDS SUMMARY | ~2020-05-06 | XMS | Encounter Summary ---
Demographics + + + | Address | [address] | | | [place] [address] | + + + | Home Phone | | + + + | Preferred Language | Unknown | + + + | Marital Status | Single | + + + | Islam Affiliation | NRP | + + + | Race | White | + + + | Ethnic Group | Not or | + + + Author + + + | Author | [facility] | + + + | Organization | [facility] | + + + | Address | Unknown | + + + | Phone | Unavailable | + + + Support + + + + + | Name | Relationship | Address | Phone | + + + + + | Neda Castañeda | ECON | [place] | | | | | [address] | | + + + + + Care Team Providers + +------+ + | Care Tanning Salon Attendant Name | Role | Phone | + +------+ + | Violeta Parker DO | PCP | | + +------+ + Reason for Visit + + + | Reason | Comments | + + + | Follow-up visit | ct | + + + Encounter Details +--------+---------+ + + + | Date | Type | Department | Care Team | Description | +--------+---------+ + + + | 03/26/ | Office | [facility] | Humberto, | Pain, abdominal, RLQ | | 2019 | Visit | [facility] [address] | Angel Woodall MD [address] | (Primary Dx) | | | | [address] | [address] | | | | | [place], [place] | [place], [place] | | | | | [address] | [address] | | | | | [phone] | [phone] | | | | | | | | +--------+---------+ + + + Social History [...] + | Blood Pressure | 125/84 | 03/26/2019 8:56 AM | | | | | PDT | | + + + + + | Pulse | 69 | 03/26/2019 8:56 AM | | | | | PDT | | + + + + + | Temperature | - | - | | + + + + + | Respiratory Rate | - | - | | + + + + + | Oxygen Saturation | - | - | | + + + + + | Inhaled Oxygen | - | - | | | Concentration | | | | + + + + + | Weight | 83.9 kg (185 lb) | 03/26/2019 8:56 AM | | | | | PDT | | + + + + + | Height | - | - | | + + + + + | Body Mass Index | 31.76 | 03/20/2019 9:03 AM | | | | | PDT | | + + + + + documented in this encounter Progress Notes Mary Means MA - 03/26/2019 9:00 AM PDTReview of Systems Constitutional: Negative for chills, fever, malaise/fatigue and weight loss. HENT: Negative for congestion. Respiratory: Negative for shortness of breath and wheezing. Cardiovascular: Negative for chest pain and palpitations. Gastrointestinal: Negative for abdominal pain, blood in stool, constipation, diarrhea, hear tburn, nausea and vomiting. Genitourinary: Negative. Musculoskeletal: Negative for back pain, joint pain and neck pain. Skin: Negative. Neurological: Negative for dizziness, tingling, weakness and headaches. Endo/Heme/Allergies: Does not bruise/bleed easily. Psychiatric/Behavioral: Negative for depression. The patient is not nervous/anxious and houser s not have insomnia. All other systems reviewed and are negative. A Turret Press Operator was offered to the patient and declined. Does patient admit to have fallen in the last 3 months: no Does patient use walking device: no ngel Paul MD - 03/26/2019 9:00 AM PDTChief Complaint: No chief complaint on file. History of Present Illness 43 year old man with chronic RLQ pain. He had his CT done and is here for follow up. His p ain is somewhat resolved, but continues to have twinges of occasional pain. Vitals There were no vitals taken for this visit. Estimated body mass index is 31.91 kg/m as calculated from the following: Height as of 03/20/19: 1.626 m (5' 4"). Weight as of 03/20/19: 84.3 kg (185 lb 14.4 oz). Physical Examination Gen- NAD JOSEPH- GAGE, MMMagalie Resp- Unlabored ABd- soft NTND CT- no ventral hernia noted Assessment/Plan There are no diagnoses linked to this encounter. 43 year old man with chronic RLQ pain. This is likely muscular in nature. There does not a ppear to be any indication for surgical intervention. Follow up PRN. No follow-ups on file. documented in t his encounter Plan of Treatment Not on filedocumented as of this encounter Visit Diagnoses + + | Diagnosis | + + | Pain, abdominal, RLQ - Primary Abdominal pain, right lower quadrant | + + documented in this encounter
--- OUTSIDE RECORDS SUMMARY | ~2020-05-06 | XMS | Encounter Summary ---
Demographics + + + | Address | [address] | | | [place] [address] | + + + | Home Phone | | + + + | Preferred Language | Unknown | + + + | Marital Status | Single | + + + | Confucianism Affiliation | NRP | + + + | Race | White | + + + | Ethnic Group | Not or | + + + Author + + + | Author | [facility] | + + + | Organization | [facility] | + + + | Address | Unknown | + + + | Phone | Unavailable | + + + Support + + + + + | Name | Relationship | Address | Phone | + + + + + | Neda Castañeda | ECON | [place] | | | | | [address] | | + + + + + Care Team Providers + +------+ + | Care Payroll Administrator Name | Role | Phone | + +------+ + | Miguel A Peraza PA-C | PCP | | + +------+ + Encounter Details +--------+ + + + + | Date | Type | Department | Care Team | Description | +--------+ + + + + | 03/19/ | Telephone | [facility] | Miguel A Peraza PA-C | | | 2017 | | Medicine [address] | | | | | [address] [place], | [place] | | | | | [place] [address] | [address] | | | | | [phone] | [phone] | | | | | | | [...]
--- OUTSIDE RECORDS SUMMARY | ~2020-05-06 | XMS | Encounter Summary ---
Demographics + + + | Address | [address] | | | [place] [address] | + + + | Home Phone | | + + + | Preferred Language | Unknown | + + + | Marital Status | Single | + + + | Buddhism Affiliation | NRP | + + + | Race | White | + + + | Ethnic Group | Not or | + + + Author + + + | Author | [facility] | + + + | Organization | [facility] | + + + | Address | Unknown | + + + | Phone | Unavailable | + + + Support + + + + + | Name | Relationship | Address | Phone | + + + + + | Neda Santos | ECON | [place] | | | | | [address] | | + + + + + Care Team Providers + +------+ + | Care Bead Filler Name | Role | Phone | + +------+ + | Iliana Parker DO | PCP | | + +------+ + Encounter Details +--------+ + + + + | Date | Type | Department | Care Team | Description | +--------+ + + + + | 02/11/ | Transcribe | [facility] | Transcribe | | | 2019 | Orders | [facility] [address] | Encounter, Provider, | | | | | [address] | [address] | | | | | [place] [address] | [facility] [address] | | | | | [address] | | | +--------+ + + + [...] on filedocumented as of this encounter Results US AORTA (03/03/2019 7:28 AM PDT) + + | Specimen | + + | | + + + + + | Narrative | Performed At | + + + | [address] [place] [address] | [facility] | | [place] [address] | DEPARTMENT OF | | [phone] Name: CHUCK SANTOS Phys: | RADIOLOGY | | ILIANA JAVED : 1975 Sex: M | | | CSN: [id number] MR# [id number] Exam Date: | | | 03/03/2019 EXAM: US AORTA CLINICAL HISTORY: Thoracic aortic | | | aneurysm. Screening COMPARISON: None available. TECHNIQUE: | | | Multiple sonographic images of the abdominal aorta and IVC were | | | obtained utilizing a 5.0 Mhz transducer. FINDINGS: Visualized | | | IVC: Normal. Abdominal aorta: There is no aneurysmal dilatation. | | | Maximum AP diameters are as follows: Proximal: 2.3 cm. Mid: | | | 1.8 cm. Distal: 1.8 cm. Common iliac arteries: No | | | aneurysmal dilatation. IMPRESSION: No abdominal aortic aneurysm. | | | REPORT SIGNED IN OTHER VENDOR SYSTEM 03/03/2019 | | | Reported by: Joseph Diaz MD Electronically signed by: Joseph | | | MD Joe Transcribed Date/Time: 03/03/2019 08:11 | | | Physical Therapy Nurse: FLUENCY | | + + + + + | Procedure Note | + + | Interface, Radiology Results - 03/03/2019 8:15 AM PDT [address] | | [address] [place] [address] | | Name: TOMCHUCK Phys: TELLOILIANA M : 1975 Sex: M | | CSN: [id number] MR# [id number] Exam Date: 03/03/2019 EXAM:US AORTA CLINICAL | | HISTORY:Thoracic aortic aneurysm. Screening COMPARISON:None available. | | TECHNIQUE:Multiple sonographic images of the abdominal aorta and IVC wereobtained | | utilizing a 5.0 Mhz transducer. FINDINGS:Visualized IVC: Normal. Abdominal aorta: There | | is no aneurysmal dilatation.Maximum AP diameters are as follows:Proximal: 2.3 cm.Mid: | | 1.8 cm.Distal: 1.8 cm. Common iliac arteries: No aneurysmal dilatation. IMPRESSION:No | | abdominal aortic aneurysm. REPORT SIGNED IN OTHER VENDOR SYSTEM 03/03/2019 | | Reported by: Joseph Diaz MD Electronically signed by: Joseph Diaz MD Transcribed | | Date/Time: 03/03/2019 08:11Transcriptionist: FLUENCY | |EXAM: | |US AORTA | | | |CLINICAL HISTORY: | |Thoracic aortic aneurysm. Screening | | | |COMPARISON: | |None available. | | | |TECHNIQUE: | |Multiple sonographic images of the abdominal aorta and IVC were | |obtained utilizing a 5.0 Mhz transducer. | | | |FINDINGS: | |Visualized IVC: Normal. | | | |Abdominal aorta: There is no aneurysmal dilatation. | |Maximum AP diameters are as follows: | |Proximal: 2.3 cm. | |Mid: 1.8 cm. | |Distal: 1.8 cm. | | | |Common iliac arteries: No aneurysmal dilatation. | | | |IMPRESSION: | |No abdominal aortic aneurysm. | | | | | | | | REPORT SIGNED IN OTHER VENDOR SYSTEM 03/03/2019 | |Reported by: Joseph Diaz MD | | | |Electronically signed by: Joseph Diaz MD | | | |Transcribed Date/Time: 03/03/2019 08:11 | |Physical Therapy Nurse: VAL | | | | | | | + + + +---------+ + + | Performing | Address | City/State/Zipcode | Phone Number | | Organization | | | | + +---------+ + + | [facility] DEPARTMENT OF | | | | | RADIOLOGY | | | | + +---------+ + + documented in this encounter Visit Diagnoses + + | Diagnosis | + + | Thoracic aortic aneurysm without rupture (HCC) - Primary Thoracic aneurysm without | | mention of rupture | + + documented in this encounter"
--- OUTSIDE RECORDS SUMMARY | ~2020-05-06 | XMS | Encounter Summary ---
Demographics + + + | Address | [address] | | | [place] [address] | + + + | Home Phone | | + + + | Preferred Language | Unknown | + + + | Marital Status | Single | + + + | Latter Day Affiliation | NRP | + + + | Race | White | + + + | Ethnic Group | Not or | + + + Author + + + | Author | [facility] | + + + | Organization | [facility] | + + + | Address | Unknown | + + + | Phone | Unavailable | + + + Support + + + + + | Name | Relationship | Address | Phone | + + + + + | Neda Castañeda | ECON | [place] | | | | | [address] | | + + + + + Care Team Providers + +------+ + | Care Globe Tester Name | Role | Phone | + +------+ + | Nathalie Castillo | PCP | | + +------+ + Encounter Details +--------+ + + + + | Date | Type | Department | Care Team | Description | +--------+ + + + + | 03/01/ | Results | [facility] | Kari Amin MD | | | 2012 | Only | Department | [facility] | | | | | | Health Dept [address] | | | | | | [address] [facility], | | | | | | [place] [address] | | | | | | [phone] | | | | | | | [...] | + +--------+ + + + | HAND 3 VIEW [id number] | Routin | 03/01/2013 | | Results for this | | | e | 3:37 PM | | procedure are in the | | | | PDT | | results section. | + +--------+ + + + documented in this encounter Results HAND 3 VIEW [id number] (03/01/2013 3:37 PM PDT) + + | Specimen | + + | | + + + + + | Narrative | Performed At | + + + | Exam: Left hand, three views. Indication: 37-year-old male with | [facility] | | swelling at base of the thumb, no known injury. Comparison: None | DEPARTMENT OF | | available. Findings: AP, oblique and lateral films were obtained. | RADIOLOGY | | There are no signs of fracture, dislocation, radiopaque foreign | | | body, arthritic or destructive bone changes or unusual soft tissue | | | calcifications. Impression: No evidence of bone or joint lesion. | | + + + + + | Procedure Note | + + | Interface, Radiology Results - 05/02/2015 5:37 PM PDT Exam: Left hand, three views. | | Indication: 37-year-old male with swelling at base of the thumb, no | | known injury. | | Comparison: None available. | | Findings: AP, oblique and lateral films were obtained. There are no | | signs of fracture, dislocation, radiopaque foreign body, arthritic or | | destructive bone changes or unusual soft tissue calcifications. | | Impression: No evidence of bone or joint lesion. | + + + +---------+ + + [...]
--- OUTSIDE RECORDS SUMMARY | ~2020-05-06 | XMS | Encounter Summary ---
Demographics + + + | Address | [address] | | | [place] [address] | + + + | Home Phone | | + + + | Preferred Language | Unknown | + + + | Marital Status | Single | + + + | Bahai Affiliation | NRP | + + + | Race | White | + + + | Ethnic Group | Not or | + + + Author + + + | Author | [facility] | + + + | Organization | [facility] | + + + | Address | Unknown | + + + | Phone | Unavailable | + + + Support + + + + + | Name | Relationship | Address | Phone | + + + + + | Neda Castañeda | ECON | [place] | | | | | [address] | | + + + + + Care Team Providers + +------+ + | Care Histologic Technician Name | Role | Phone | + +------+ + | Violeta Parker DO | PCP | | + +------+ + Encounter Details +--------+ + + + + | Date | Type | Department | Care Team | Description | +--------+ + + + + | 09/18/ | Telephone | Surgical Services | [place]to, | | | 2018 | | at [facility] | Angel Woodall MD [address] | | | | | [address] | | | | | [place] | [place] | | | | | [address] | [address] | | | | | [phone] | [phone] | | | | | | | [...]
--- OUTSIDE RECORDS SUMMARY | ~2020-05-06 | XMS | Encounter Summary ---
Demographics + + + | Address | [address] | | | [place] [address] | + + + | Home Phone | | + + + | Preferred Language | Unknown | + + + | Marital Status | Single | + + + | Sikh Affiliation | NRP | + + + [...] [place] | | | | | [address] | | + + + + + Care Team Providers + +------+ + | Care 3D Designer Name | Role | Phone | + +------+ + | Miguel A Peraza PA-C | PCP | | + +------+ + Reason for Visit +--------+ + | Reason | Comments | +--------+ + | Fall | fall off ladder from top rung about 10-12 ft | +--------+ + Encounter Details +--------+ + + + + | Date | Type | Department | Care Team | Description | +--------+ + + + + | 05/07/ | Emergency | Emergency | MuniraGloria Magalie, | | | 2017 | | Department at [facility] | MD [address] | | | | | [facility] [address] [place], [place] | | | | | St [place], | [address] | | | | | [place] [address] | [phone] | | | | | [phone] | | | +--------+ + + + [...] + + + | Blood Pressure | 134/85 | 05/07/2018 11:42 AM | | | | | PDT | | + + + + + | Pulse | 85 | 05/07/2018 11:42 AM | | | | | PDT | | + + + + + | Temperature | 36.6 C (97.9 F) | 05/07/2018 11:42 AM | | | | | PDT | | + + + + + | Respiratory Rate | 18 | 05/07/2018 11:42 AM | | | | | PDT | | + + + + + | Oxygen Saturation | 97% | 05/07/2018 11:42 AM | | | | | PDT [...] documented in this encounter Discharge Instructions Instructions Gloria Lombardo MD - 05/07/2018Please promptly call the provider or clinic re commended by your ED physician after being discharged from the emergency department to sched ule a follow-up visit. Primary care provider clinics can be contacted Saturday through ay 8:00 AM to 5:00 PM and specialty clinics Saturday through Saturday 8:00 AM to 5:00 PM. You s hould try to be seen in follow-up or talk to the follow-up provider's nurse in the next 2 da ys. You may be asked to follow-up with a different provider or clinic in order to get you s een sooner. Thank you for letting us serve you today. AttachmentsThe following attachments cannot be sent through Care Everywhere.Chest Contusion ([place])Ankle Sprain ([place])documented in this encounter Medications at Time of Discharge + + + +---------+ + + | Medication | Sig | Dispensed | Refills | Start | End Date | | | | | | Date | | + + + +---------+ + + | atorvastatin 40 mg | Take 1 tablet by | 90 | 1 | 03/18/20 | | | oral | mouth once daily. | tablet | | 18 | | | tabletIndications: | Indications: | | | | | | hypercholesterolemia | hypercholesterolemia | | | | | + + + +---------+ + + | gabapentin 300 mg | Take 2 capsules by | 540 | 1 | 12/20/19 | | | oral | mouth three times | capsule | | 18 | | | capsuleIndications: | daily. | | | | | | Left thigh pain | | | | | | + + + +---------+ + + documented as of this encounter Plan of Treatment Not on filedocumented as of this encounter Procedures + +--------+ + + + | Procedure Name | Priori | Date/Time | Associated Diagnosis | Comments | | | ty | | | | + +--------+ + + + | UA, DIPSTICK W/ | Urgent | 05/07/2018 | | Results for this | | REFLEX | | 1:12 PM | | procedure are in the | | | | PDT | | results section. | + +--------+ + + + | CT CHEST, ABDOMEN | Urgent | 05/07/2018 | | Results for this | | AND PELVIS W IV | | 12:15 PM | | procedure are in the | | CONTRAST | | PDT | | results section. | + +--------+ + + + | CT SPINE CERVICAL WO | Urgent | 05/07/2018 | | Results for this | | CONTRAST | | 12:11 PM | | procedure are in the | | | | PDT | | results section. | + +--------+ + + + | X-RAY PORTABLE ANKLE | Urgent | 05/07/2018 | | Results for this | | 3 VIEWS RIGHT | | 12:09 PM | | procedure are in the | | | | PDT | | results section. | + +--------+ + + + | CBC W/DIFF, REFLEX | Urgent | 05/07/2018 | | Results for this | | | | 11:58 AM | | procedure are in the | | | | PDT | | results section. | + +--------+ + + + | CBC AND AUTO DIFF | Urgent | 05/07/2018 | | Results for this | | | | 11:58 AM | | procedure are in the | | | | PDT | | results section. | + +--------+ + + + | COMPLETE METABOLIC | Urgent | 05/07/2018 | | Results for this | | SET | | 11:58 AM | | procedure are in the | | (NA,K,CL,CO2,BUN,CRE | | PDT | | results section. | | AT,GLUC,CA,AST,ALT,B | | | | | | FRED TOTAL,ALK | | | | | | PHOS,ALB,PROT TOTAL) | | | | | + +--------+ + + + | ANTIBODY SCREEN | Urgent | 05/07/2018 | | Results for this | | | | 11:58 AM | | procedure are in the | | | | PDT | | results section. | + +--------+ + + + | TYPE AND SCREEN | Urgent | 05/07/2018 | | Results for this | | | | 11:58 AM | | procedure are in the | | | | PDT | | results section. | + +--------+ + + + | ABO & RH TYPE | Urgent | 05/07/2018 | | Results for this | | | | 11:58 AM | | procedure are in the | | | | PDT | | results section. | + +--------+ + + + | LIPASE, PLASMA | Urgent | 05/07/2018 | | Results for this | | | | 11:58 AM | | procedure are in the | | | | PDT | | results section. | + +--------+ + + + documented in this encounter Results NEREIDA MORILLO W/ JACOBO (05/07/2018 1:12 PM PDT) + + + + + + | Component | Value | Ref Range | Performed | Pathologist | | | | | At | Signature | + + + + + + | COLOR(UR) | Yellow | | [facility] | | | | | | [facility] | | + + + + + + | APPEARANCE | Clear | | [facility] | | | | | | [facility] | | | | | | [facility] | | + + + + + + | PH (URINE) | 7.0 | 5.0 - 8.5 | [facility] | | | | | | [facility] | | | | | | [facility] | | + + + + + + | PROTEIN, | Negative | Negative, Trace | [facility] | | | URINE | | | A [facility] | | | | | | [facility]ENTER | | + + + + + + | GLUCOSE | Negative | Negative | [facility] | | | (URINE) | | | A [facility] | | | | | | CENTER | | + + + + + + | KETONES | Negative | Negative | [facility] | | | | | | [facility] | | | | | | [facility]ENTER | | + + + + + + | SPECIFIC | >1.030 (H) | 1.005 - 1.030 | [facility] | | | GRAVITY | | | A [facility] | | | | | | CENTER | | + + + + + + | BILIRUBIN | Negative | Negative | [facility] | | | | | | [facility] | | | | | | [facility] | | + + + + + + | BLOOD | Negative | Negative | [facility] | | | | | | [facility] | | | | | | [facility] | | + + + + + + | NITRITES | Negative | Negative | [facility] | | | | | | [facility] | | | | | | [facility] | | + + + + + + | LEUKOCYTE | Negative | Negative | [facility] | | | ESTERASE | | | A [facility] | | | | | | CENTER | | + + + + + + | UROBILINOGE | Negative | Negative, 1.0 | [facility] | | | N | | mg/dL | A [facility] | | | | | | CENTER | | + + + + + + | SOURCE | Clean catch | | [facility] | | | (URINALYSIS | | | A MEDICAL | | | ) | | | CENTER | | + [...] | + + + + + | [facility] | [address] | [place], [place] | [phone] | | [facility] | [facility] | [address] | | + + + + + CT CHEST, ABDOMEN AND PELVIS W IV CONTRAST (05/07/2018 12:15 PM PDT) + + | Specimen | + + | | + + + + + | Narrative | Performed At | + + + | [address] [place] [address] | [facility] | | [place] [address] | DEPARTMENT | | [phone] Name: CHUCK SANTOS Phys: | RADIOLOGY | | GLORIA LOMBARDO : 1975 Sex: M CSN: | | | [id number] MR# [id number] Exam Date: 05/07/2018 | | | EXAM: CT CHEST, ABDOMEN AND PELVIS W IV CONTRAST [id number] | | | CLINICAL HISTORY: Fall off ladder. Chest pain and right upper | | | abdomen pain. COMPARISON: CT abdomen and pelvis 03/08/2017. | | | TECHNIQUE: Multiple contiguous axial images were obtained through the | | | chest, abdomen, and pelvis following the uneventful administration | | | of 100 mL of Omnipaque 300 intravenous contrast. Coronal and | | | sagittal reformatted images were obtained. Dose reduction | | | techniques including automated exposure control were utilized. | | | FINDINGS: CHEST: Lungs: No suspicious pulmonary nodule, focal | | | infiltrate, or pulmonary interstitial thickening. Pleura: No | | | pleural effusion, pleural thickening, or pneumothorax. | | | Mediastinum: There is no evidence of cardiomegaly. There is an | | | ascending thoracic aortic aneurysm which measures up to 4.3 cm in | | | diameter. There is no hemorrhage or contusion within the | | | mediastinum. Lymph nodes: No enlarged mediastinal, axillary, or | | | hilar lymphadenopathy. Visualized lower neck: Unremarkable. | | | Chest wall: Unremarkable. ABDOMEN/PELVIS: Liver: There are | | | numerous small hypodense liver lesions which likely represent small | | | cysts or hemangiomas but are too small to characterize. There is no | | | traumatic liver laceration. Gallbladder and biliary tree: Normal | | | with no calcified gallstones or biliary ductal dilation. | | | Pancreas: Normal. Spleen: Normal. Adrenal glands: Normal. | | | Kidneys and ureters: Bilateral nonobstructive renal calculi are | | | present, measuring up to 4 mm at the upper pole of the left kidney. | | | There is no hydronephrosis. No renal mass or laceration. Bowel: | | | No evidence of appendicitis. No evidence of obstruction, wall | | | thickening, or adjacent inflammatory change. Urinary bladder: | | | Normal. Lymph nodes: No enlarged retroperitoneal, mesenteric, or | | | pelvic lymph nodes. Peritoneum: No pneumoperitoneum or free | | | fluid. Retroperitoneum: Normal. Vascular structures: | | | Unremarkable. Abdominal wall: Normal. Bones: Normal. | | | IMPRESSION: 1. No acute traumatic pathology. 2. Incidental ascending | | | thoracic aortic aneurysm measuring 4.3 cm in diameter. 3. Bilateral | | | nonobstructive renal calculi. REPORT SIGNED IN OTHER VENDOR | | | SYSTEM 05/07/2018 Reported by: Star Mendez MD | | | Electronically signed by: Star Mendez MD Transcribed Date/Time: | | | 05/07/2018 12:45 Upfitter: VAL | | + + + + + | Procedure Note | + + | Interface, Radiology Results - 05/07/2018 12:50 PM PDT [address] | | [address] [place] [address] | | Name: CHUCK SANTOS Phys: GLORIA LOMBARDO : 1975 Sex: M | | CSN: [id number] MR# [id number] Exam Date: 05/07/2018 EXAM:CT CHEST, ABDOMEN AND | | PELVIS W IV CONTRAST [id number] CLINICAL HISTORY:Fall off ladder. Chest pain and | | right upper abdomen pain. COMPARISON:CT abdomen and pelvis 03/08/2017. | | TECHNIQUE:Multiple contiguous axial images were obtained through the chest,abdomen, and | | pelvis following the uneventful administration of 100 mLof Omnipaque 300 intravenous | | contrast. Coronal and sagittalreformatted images were obtained. Dose reduction | | techniquesincluding automated exposure control were utilized. FINDINGS:CHEST:Lungs: No | | suspicious pulmonary nodule, focal infiltrate, orpulmonary interstitial thickening. | | Pleura: No pleural effusion, pleural thickening, or pneumothorax. Mediastinum: There | | is no evidence of cardiomegaly. There is anascending thoracic aortic aneurysm which | | measures up to 4.3 cm indiameter. There is no hemorrhage or contusion within the | | mediastinum. Lymph nodes: No enlarged mediastinal, axillary, or hilarlymphadenopathy. | | Visualized lower neck: Unremarkable. Chest wall: Unremarkable. ABDOMEN/PELVIS:Liver: | | There are numerous small hypodense liver lesions which likelyrepresent small cysts or | | hemangiomas but are too small tocharacterize. There is no traumatic liver laceration. | | Gallbladder and biliary tree: Normal with no calcified gallstones orbiliary ductal | | dilation. Pancreas: Normal. Spleen: Normal. Adrenal glands: Normal. Kidneys and ureters: | | Bilateral nonobstructive renal calculi arepresent, measuring up to 4 mm at the upper | | pole of the left kidney.There is no hydronephrosis. No renal mass or laceration. Bowel: | | No evidence of appendicitis. No evidence of obstruction, wallthickening, or adjacent | | inflammatory change. Urinary bladder: Normal. Lymph nodes: No enlarged retroperitoneal, | | mesenteric, or pelvic lymphnodes. Peritoneum: No pneumoperitoneum or free fluid. | | Retroperitoneum: Normal. Vascular structures: Unremarkable. Abdominal wall: Normal. | | Bones: Normal. IMPRESSION:1. No acute traumatic pathology.2. Incidental ascending | | thoracic aortic aneurysm measuring 4.3 cm indiameter.3. Bilateral nonobstructive renal | | calculi. REPORT SIGNED IN OTHER VENDOR SYSTEM 05/07/2018 Reported by: Star | | MD Andrea Electronically signed by: Star Mendez MD Transcribed Date/Time: 05/07/2018 | | 12:45Transcriptionist: FLUENCY | |pulmonary interstitial thickening. | | | |Pleura: No pleural effusion, pleural thickening, or pneumothorax. | | | |Mediastinum: There is no evidence of cardiomegaly. There is an | |ascending thoracic aortic aneurysm which measures up to 4.3 cm in | |diameter. There is no hemorrhage or contusion within the | |mediastinum. | | | |Lymph nodes: No enlarged mediastinal, axillary, or hilar | |lymphadenopathy. | | | |Visualized lower neck: Unremarkable. | | | |Chest wall: Unremarkable. | | | | | |ABDOMEN/PELVIS: | |Liver: There are numerous small hypodense liver lesions which likely | |represent small cysts or hemangiomas but are too small to | |characterize. There is no traumatic liver laceration. | | | |Gallbladder and biliary tree: Normal with no calcified gallstones or | |biliary ductal dilation. | | | |Pancreas: Normal. | | | |Spleen: Normal. | | | |Adrenal glands: Normal. | | | |Kidneys and ureters: Bilateral nonobstructive renal calculi are | |present, measuring up to 4 mm at the upper pole of the left kidney. | |There is no hydronephrosis. No renal mass or laceration. | | | |Bowel: No evidence of appendicitis. No evidence of obstruction, wall | |thickening, or adjacent inflammatory change. | | | |Urinary bladder: Normal. | | | |Lymph nodes: No enlarged retroperitoneal, mesenteric, or pelvic lymph | |nodes. | | | |Peritoneum: No pneumoperitoneum or free fluid. | | | |Retroperitoneum: Normal. | | | |Vascular structures: Unremarkable. | | | |Abdominal wall: Normal. | | | |Bones: Normal. | | | |IMPRESSION: | |1. No acute traumatic pathology. | |2. Incidental ascending thoracic aortic aneurysm measuring 4.3 cm in | |diameter. | |3. Bilateral nonobstructive renal calculi. | | | | | | REPORT SIGNED IN OTHER VENDOR SYSTEM 05/07/2018 | |Reported by: Star Mendez MD | | | |Electronically signed by: Star Mendez MD | | | |Transcribed Date/Time: 05/07/2018 12:45 | |Upfitter: FLUENCY | | | | | | | + + + +---------+ + + | Performing | Address | City/State/Zipcode | Phone Number | | Organization | | | | + +---------+ + + | [facility] | | | | [facility] | | | | + +---------+ + + CT SPINE CERVICAL WO CONTRAST (05/07/2018 12:11 PM PDT) + + | Specimen | + + | | + + + + + | Narrative | Performed At | + + + | [address] | [facility] | | [place] [address] | [facility] | | [phone] Name: CHUCK SANTOS Phys: | RADIOLOGY | | GLORIA LOMBARDO Magalie : 1975 Sex: M CSN: | | | [id number] MR# [id number] Exam Date: 05/07/2018 | | | EXAM: CT SPINE CERVICAL WO CONTRAST CLINICAL HISTORY: Fall from | | | ladder. Trauma. COMPARISON: MRI cervical spine 01/09/2012. | | | TECHNIQUE: Axial CT images of the cervical spine were obtained | | | without contrast. Sagittal and coronal reformatted images were | | | obtained. Dose reduction techniques including automated exposure | | | control were utilized. FINDINGS: Bones: No acute fracture or | | | malalignment of the cervical spine. Intervertebral disc spaces: | | | There is no evidence of traumatic intervertebral disc space | | | widening. There postoperative changes of anterior cervical | | | discectomy and fusion at C6-C7. Moderate intervertebral disc space | | | narrowing and osteophytosis is present at C5-C6. Prevertebral | | | soft tissues: Unremarkable with no evidence of edema. Other | | | visualized soft tissues: Unremarkable. IMPRESSION: 1. No acute | | | fracture or malalignment. 2. Anterior cervical discectomy and fusion | | | changes at C6-C7 and moderate spondylosis at C5-C6. | | | REPORT SIGNED IN OTHER VENDOR SYSTEM 05/07/2018 Reported by: | | | Star Mendez MD Electronically signed by: Star Mendez MD | | | Transcribed Date/Time: 05/07/2018 12:35 Upfitter: FLUENCY | | | | | + + + + + | Procedure Note | + + | Interface, Radiology Results - 05/07/2018 12:40 PM PDT [address] | | [address] [place] [address] | | Name: CHUCK SANTOS Phys: MUNIRAGLORIA M : 1975 Sex: M | | CSN: [id number] MR# [id number] Exam Date: 05/07/2018 EXAM:CT SPINE CERVICAL WO | | CONTRAST CLINICAL HISTORY:Fall from ladder. Trauma. COMPARISON:MRI cervical spine | | 01/09/2012. TECHNIQUE:Axial CT images of the cervical spine were obtained without | | contrast.Sagittal and coronal reformatted images were obtained. Dosereduction | | techniques including automated exposure control wereutilized. FINDINGS:Bones: No acute | | fracture or malalignment of the cervical spine. Intervertebral disc spaces: There is no | | evidence of traumaticintervertebral disc space widening. There postoperative changes | | ofanterior cervical discectomy and fusion at C6-C7. Moderateintervertebral disc space | | narrowing and osteophytosis is present atC5-C6. Prevertebral soft tissues: Unremarkable | | with no evidence of edema. Other visualized soft tissues: Unremarkable. IMPRESSION:1. | | No acute fracture or malalignment.2. Anterior cervical discectomy and fusion changes at | | C6-C7 andmoderate spondylosis at C5-C6. REPORT SIGNED IN OTHER VENDOR SYSTEM | | 05/07/2018 Reported by: Star Mendez MD Electronically signed by: Star Mendez MD | | Transcribed Date/Time: 05/07/2018 12:35Transcriptionist: FLUENCY | | | |COMPARISON: | |MRI cervical spine 01/09/2012. | | | |TECHNIQUE: | |Axial CT images of the cervical spine were obtained without contrast. | |Sagittal and coronal reformatted images were obtained. Dose | |reduction techniques including automated exposure control were | |utilized. | | | |FINDINGS: | |Bones: No acute fracture or malalignment of the cervical spine. | | | |Intervertebral disc spaces: There is no evidence of traumatic | |intervertebral disc space widening. There postoperative changes of | |anterior cervical discectomy and fusion at C6-C7. Moderate | |intervertebral disc space narrowing and osteophytosis is present at | |C5-C6. | | | |Prevertebral soft tissues: Unremarkable with no evidence of edema. | | | |Other visualized soft tissues: Unremarkable. | | | |IMPRESSION: | |1. No acute fracture or malalignment. | |2. Anterior cervical discectomy and fusion changes at C6-C7 and | |moderate spondylosis at C5-C6. | | | | | | | | | | REPORT SIGNED IN OTHER VENDOR SYSTEM 05/07/2018 | |Reported by: Star Mendez MD | | | |Electronically signed by: Star Mendez MD | | | |Transcribed Date/Time: 05/07/2018 12:35 | |Upfitter: FLUENCY | | | | | | | + + + +---------+ + + | Performing | Address | City/State/Zipcode | Phone Number | | Organization | | | | + +---------+ + + | [facility] | | | | | [facility] | | | | + +---------+ + + X-RAY PORTABLE ANKLE 3 VIEWS RIGHT (05/07/2018 12:09 PM PDT) + + | Specimen | + + | | + + + + + | Narrative | Performed At | + + + | [address] | [facility] | | [place] [address] | DEPARTMENT | | [phone] Name: CHUCK SANTOS Phys: | RADIOLOGY | | GLORIA LOMBARDO : 1975 Sex: M CSN: | | | [id number] MR# [id number] Exam Date: 05/07/2018 | | | EXAM: X-RAY PORTABLE ANKLE 3 VIEWS RIGHT CLINICAL HISTORY: | | | Fall. Right ankle pain. COMPARISON: None available. | | | TECHNIQUE: Frontal, lateral, and oblique views. FINDINGS: Bones: | | | No acute fracture or destructive osseous lesion. Bone | | | mineralization is normal. Joints: No acute dislocation. No | | | significant degenerative changes. Soft tissues: No radiopaque | | | foreign body or soft tissue calcification. IMPRESSION: No acute | | | osseous process. REPORT SIGNED IN OTHER VENDOR SYSTEM | | | 05/07/2018 Reported by: Star Mendez MD Electronically signed | | | by: Star Mendez MD Transcribed Date/Time: 05/07/2018 12:29 | | | Upfitter: FLUENCY | | + + + + + | Procedure Note | + + | Interface, Radiology Results - 05/07/2018 12:34 PM PDT [address] | | [address] [place] [address] | | Name: CHUCK SANTOS Phys: GLORIA LOMBARDO : 1975 Sex: M | | CSN: [id number] MR# [id number] Exam Date: 05/07/2018 EXAM:X-RAY PORTABLE ANKLE 3 | | VIEWS RIGHT CLINICAL HISTORY:Fall. Right ankle pain. COMPARISON:None available. | | TECHNIQUE:Frontal, lateral, and oblique views. FINDINGS:Bones: No acute fracture or | | destructive osseous lesion. Bonemineralization is normal. Joints: No acute | | dislocation. No significant degenerative changes. Soft tissues: No radiopaque foreign | | body or soft tissuecalcification. IMPRESSION:No acute osseous process. REPORT SIGNED | | IN OTHER VENDOR SYSTEM 05/07/2018 Reported by: Star Mendez MD Electronically signed | | by: Star Mendez MD Transcribed Date/Time: 05/07/2018 12:29Transcriptionist: FLUENCY | | | |EXAM: | |X-RAY PORTABLE ANKLE 3 VIEWS RIGHT | | | |CLINICAL HISTORY: | |Fall. Right ankle pain. | | | |COMPARISON: | |None available. | | | |TECHNIQUE: | |Frontal, lateral, and oblique views. | | | |FINDINGS: | |Bones: No acute fracture or destructive osseous lesion. Bone | |mineralization is normal. | | | |Joints: No acute dislocation. No significant degenerative changes. | | | |Soft tissues: No radiopaque foreign body or soft tissue | |calcification. | | | |IMPRESSION: | |No acute osseous process. | | | | | | REPORT SIGNED IN OTHER VENDOR SYSTEM 05/07/2018 | |Reported by: Star Mendez MD | | | |Electronically signed by: Star Mendez MD | | | |Transcribed Date/Time: 05/07/2018 12:29 | |Upfitter: FLUENCY | | | | | | | + + + +---------+ + + | Performing | Address | City/State/Zipcode | Phone Number | | Organization | | | | + +---------+ + + | [facility] | | | | [facility] | | | | + +---------+ + + ANTIBODY SCREEN (05/07/2018 11:58 AM PDT) + + + + + + | Component | Value | Ref Range | Performed | Pathologist | | | | | At | Signature | + + + + + + | Antibody | Negative | | [facility] | | | Screen | | | BANK | | + + + + + + + + | Specimen | + + | Blood - Blood | | (substance) | + + + + + + + | Performing | Address | City/State/Zipcode | Phone Number | | Organization | | | | + + + + + | [facility] | and | [place], [place] | | | | [address] | [address] | | + + + + + ABO & RH TYPE (05/07/2018 11:58 AM PDT) + + + + + + | Component | Value | Ref Range | Performed | Pathologist | | | | | At | Signature | + + + + + + | ABO Group | O | | [facility] | | | | | | BANK | | + + + + + + | Rh Type | Positive | | [facility] | | | | | | BANK | | + + + + + + + + | Specimen | + + | Blood - Blood | | (substance) | + + + + + + + | Performing | Address | City/State/Zipcode | Phone Number | | Organization | | | | + + + + + | [facility] | [address] | [place], [place] | | | | Streets | [address] | | + + + + + CBC AND AUTO DIFF (05/07/2018 11:58 AM PDT) + +---------+ + + + | Component | Value | Ref Range | Performed | Pathologist | | | | | At | Signature | + +---------+ + + + | WBC COUNT | 6.7 | 3.5 - 10.8 K/cu | [facility] | | | | | mm | A [facility] | | | | | | CENTER | | + +---------+ + + + | RED CELL | 5.34 | 4.50 - 6.00 | [facility] | | | COUNT | | M/cu mm | [facility] | | | | | | CENTER | | + +---------+ + + + | HEMOGLOBIN | 15.1 | 13.5 - 17.5 | [facility] | | | | | g/dL | A [facility] | | | | | | CENTER | | + +---------+ + + + | HEMATOCRIT | 45.5 | 41.0 - 53.0 % | [facility] | | | | | | A [facility] | | | | | | CENTER | | + +---------+ + + + | MCV | 85.3 | 80.0 - 96.0 fL | [facility] | | | | | | A [facility] | | | | | | CENTER | | + +---------+ + + + | MCH | 28.4 | 28.0 - 34.7 pg | [facility] | | | | | | A [facility] | | | | | | CENTER | | + +---------+ + + + | MCHC | 33.3 | 33.0 - 35.5 | [facility] | | | | | g/dL | A [facility] | | | | | | CENTER | | + +---------+ + + + | RDW | 13.8 | 11.5 - 15.0 % | [facility] | | | | | | A [facility] | | | | | | CENTER | | + +---------+ + + + | PLATELET | 192 | 150 - 400 K/cu | [facility] | | | COUNT | | mm | A [facility] | | | | | | CENTER | | + +---------+ + + + | MPV | 7.8 | 7.5 - 11.2 fL | [facility] | | | | | | A [facility] | | | | | | CENTER | | + +---------+ + + + | NEUTROPHIL | 57.0 | 50.0 - 70.0 % | [facility] | | | % | | | A [facility] | | | | | | CENTER | | + +---------+ + + + | LYMPHOCYTE | 34.2 | 18.0 - 42.0 % | [facility] | | | % | | | A MEDICAL | | | | | | CENTER | | + +---------+ + + + | MONOCYTE % | 5.2 | 3.5 - 9.0 % | [facility] | | | | | | A MEDICAL | | | | | | CENTER | | + +---------+ + + + | EOS % | 3.3 (H) | 1.0 - 3.0 % | [facility] | | | | | | A MEDICAL | | | | | | CENTER | | + +---------+ + + + | BASO % | 0.3 | 0.0 - 2.0 % | [facility] | | | | | | A MEDICAL | | | | | | CENTER | | + +---------+ + + + | NEUTROPHIL | 3.80 | 1.80 - 7.70 | [facility] | | | # | | K/cu mm | A MEDICAL | | | | | | CENTER | | + +---------+ + + + | LYMPHOCYTE | 2.30 | 1.00 - 4.80 | [facility] | | | # | | K/cu mm | A MEDICAL | | | | | | CENTER | | + +---------+ + + + | MONOCYTE # | 0.30 | 0.10 - 0.90 | [facility] | | | | | K/cu mm | A MEDICAL | | | | | | CENTER | | + +---------+ + + + | EOS # | 0.20 | 0.00 - 0.50 | [facility] | | | | | K/cu mm | A MEDICAL | | | | | | CENTER | | + +---------+ + + + | BASO # | [...] | + + + + + | [facility] | [address] | [place], [place] | [phone] | | MEDICAL [facility] | Streets | [address] | | + + + + + LIPASE, PLASMA (05/07/2018 11:58 AM PDT) + +-------+ + + + | Component | Value | Ref Range | Performed | Pathologist | | | | | At | Signature | + +-------+ + + + | LIPASE | 39 | 5 - 57 U/L | [facility] | | | (LAB) | | | [...] + + | [facility] | [address] | [place] | [phone] | | MEDICAL CENTER | Streets | [address] | | + + + + + COMPLETE METABOLIC SET (NA,K,CL,CO2,BUN,CREAT,GLUC,CA,AST,ALT,BILI TOTAL,ALK PHOS,ALB,PROT TOTAL) (05/07/2018 11:58 AM PDT) + +-------+ + + + | Component | Value | Ref Range | Performed | Pathologist | | | | | At | Signature | + +-------+ + + + | GLUCOSE, | 102 | 70 - 105 mg/dL | [facility] | | | PLASMA | | | A MEDICAL | | | (LAB) | | | CENTER | | + +-------+ + + + | BUN, PLASMA | 13 | 6 - 26 mg/dL | [facility] | | | (LAB) | | | A MEDICAL | | | | | | CENTER | | + +-------+ + + + | CREATININE, | 1.2 | 0.9 - 1.3 mg/dL | [facility] | | | PLASMA | | | A MEDICAL | | | | | | CENTER | | + +-------+ + + + | SODIUM, | 139 | 137 - 146 | [facility] | | | PLASMA | | mmol/L | A MEDICAL | | | (LAB) | | | CENTER | | + +-------+ + + + | POTASSIUM, | 3.8 | 3.4 - 5.3 | [facility] | | | PLASMA | | mmol/L | A MEDICAL | | | (LAB) | | | CENTER | | + +-------+ + + + | CHLORIDE, | 98 | 96 - 106 mmol/L | [facility] [...] +-------+ + + + | CALCIUM, | 9.5 | 8.5 - 10.8 | [facility] | | | PLASMA | | mg/dL | A MEDICAL | | | (LAB) | | | CENTER | | + +-------+ + + + | BILIRUBIN | 0.4 | 0.2 - 1.2 mg/dL | [facility] | | | TOTAL | | | A MEDICAL | | | | | | CENTER | | + +-------+ + + + | TOTAL | 7.1 | 5.8 - 8.5 g/dL | [facility] [...] + + + | ALK PHOS | 58 | 32 - 180 U/L | [facility] | | | | | | A MEDICAL | | | | | | CENTER | | + +-------+ + + + | AST(SGOT) | 17 | 10 - 41 U/L | [facility] | | | | | | A MEDICAL | | | | | | CENTER | | + +-------+ + + + | ALT (SGPT) | 32 | 7 - 51 U/L | [facility] | | | | | | A MEDICAL | | | | | | CENTER | | + +-------+ + + + | EGFR | >60 | >60 mL/min | [facility] | | | - | | | A MEDICAL | | | BRITISH | | | CENTER | | + +-------+ + + + | EGFR NON | >60 | >60 mL/min | [facility] | | | -ALIX | | | A MEDICAL | | | RICAN | | | CENTER | | + +-------+ + + + | ANION GAP | 14 | 12 - 20 mmol/L | [facility] | | | | | | A MEDICAL | | | | | | CENTER | | + +-------+ + + + | BUN/CREATIN | 11 | 6 - 20 | [facility] | | | INE RATIO [...] the MDRD equation recommended by the | [facility] | | National Kidney Disease Education Program. Estimated GFR | MEDICAL CENTER | | Interpretive Information: <60 mL/min/1.73 sq [...] Rapidly changing kidney | | | function - Amputees, paraplegics, or other muscle-wasting diseses | | + + + + + + + + | Performing | Address | City/State/Zipcode | Phone Number | | Organization | | | | + + + + + | [facility] | [address] | [place] | [phone] | | [facility] | Streets | [address] | | + + + + + documented in this encounter Visit Diagnoses + + | Diagnosis | + + | Contusion of right chest wall, initial encounter - Primary | + + | Sprain of right ankle, unspecified ligament, initial encounter | + + | Strain of neck muscle, initial encounter | + + | Fall, initial encounter | + + documented in this encounter Administered Medications + +--------+ +--------+------+------+ | Medication Order | MAR | Action | Dose | Rate | Site | | | Action | Date | | | | + +--------+ +--------+------+------+ | fentaNYL (SUBLIMAZE) injection | Given | 05/07/20 | 50 mcg | | | | 50 mcg 50 mcg, intravenous, | | 18 11:55 | | | | | EVERY 10 MINUTES NEEDED, 4 | | AM PDT | | | | | doses, Starting Sat05/07/18 at | | | | | | | 1151, Until Sat05/07/18 at 1922, | | | | | | | moderate pain | | | | | | + +--------+ +--------+------+------+ +---+---+ | | | +---+---+ + +-------+ +---------+---+---+ | HYDROcodone-acetaminophen | Given | 05/07/20 | 2 | | | | (NORCO) 5-325 mg tablet 2 tablet | | 18 1:16 | tablets | | | | 2 tablet, oral, ONCE, 1 dose, | | PM PDT | | | | | 05/07/18 at 1315 | | | | | | + +-------+ +---------+---+---+ +---+---+ | | | +---+---+ + +-------+ +--------+---+ + | iohexol (OMNIPAQUE) 300 mg | Given | 05/07/20 | 100 mL | | Left | | iodine/mL 100 mL 100 mL, | | 18 12:16 | | | Antecubi | | intravenous, PROCEDURE ONCE, 1 | | PM PDT | | | sabino | | dose, 05/07/18 at 1215 | | | | | | + +-------+ +--------+---+ + + +---+ | | | + +---+ | iohexol (OMNIPAQUE) 300 mg | | | iodine/mL 1 dose, Starting Wed | | | 05/07/18 at 1155, Until 05/07/18 | | | at 1216 | | + +---+ | | | + +---+ | NaCl 0.9 % (NS) solution 1 | | | dose, Starting Sat05/07/18 at | | | 1155, Until Sat05/07/18 at 1217 | | + +---+ | | | + +---+ + +---------+ +-------+---+ + | sodium chloride 0.9 % (NS) IV | IV Push | 05/07/20 | 50 mL | | Left | | infusion 60 mL, intravenous, | | 18 12:17 | | | Antecubi | | ONCE, 1 dose, Sat05/07/18 at 1245 | | PM PDT | | | sabino | + +---------+ +-------+---+ + +---+---+ | | | +---+---+ documented in this encounter"
--- OUTSIDE RECORDS SUMMARY | ~2020-05-06 | XMS | Encounter Summary ---
Demographics + + + | Address | [address] | | | [place] [address] | + + + | Home Phone | | + + + | Preferred Language | Unknown | + + + | Marital Status | Single | + + + | Yazdanism Affiliation | NRP | + + + [...] [place] | | | | | [address] | | + + + + + Care Team Providers + +------+ + | Care Director Of Construction Name | Role | Phone | + +------+ + | Herbert Marie MD,MPH | PCP | Unavailable | + +------+ + Reason for Visit + + + | Reason | Comments | + + + | Kidney stone | follow up, Pt stated he is nehemias. Pt would like to discuss | | | gallstone. | + + + Encounter Details +--------+---------+ + + + | Date | Type | Department | Care Team | Description | +--------+---------+ + + + | 05/30/ | Office | [facility] | Herbert Marie, | Recurrent kidney | | 2016 | Visit | Medicine [address] | MD,MPH | stones (Primary Dx); | | | | [place], | | Epigastric pain; | | | | [place] [address] | | Elevated BP; Mixed | | | | [phone] | | hyperlipidemia; | | | | | | Hyperglycemia; | | | | | | Allergic rhinitis, | | | | | | unspecified allergic | | | | | | rhinitis type | +--------+---------+ + + + Social History [...] + + + | Blood Pressure | 124/98 | 05/30/2016 2:38 PM | | | | | PDT | | + + + + + | Pulse | 85 | 05/30/2016 2:38 PM | | | | | PDT | | + + + + + | Temperature | - | - | | + + + + + | Respiratory Rate | - | - | | + + + + + | Oxygen Saturation | 96% | 05/30/2016 2:38 PM | | | | | PDT | | + + + + + | Inhaled Oxygen | - | - | | | Concentration | | | | + + + + + | Weight | 90.5 kg (199 lb 9.6 | 05/30/2016 2:38 PM | | | | oz) | PDT | | + + + + + | Height | 170.2 cm (5' 7") | 05/30/2016 2:38 PM | | | | | PDT | | + + + + + | Body Mass Index | 31.26 | 05/30/2016 2:38 PM | | | | | PDT | | + + + + + documented in this encounter Patient Instructions Patient Instructions Herbert Marie MD,MPH - 05/30/2016 2:58 PM PDTIris stone See kidney stone diet Call if pain does not continue to improve and resolve next week Upper abdominal pain Likely stomach issue and not gallstone See handout Reduce coffee and milk Take famotidine Blood pressure Return to check level Blood work Return for fasting labs No food after 10 pm You can have water, black coffee/tea in the morning before the blood test Go to lab - no appointment needed Saturday 8 am - 6 pm Saturday- Saturday 7 am- 6 pm Saturday 10 am - 4 pm [facility] Family [facility] at [address] We will inform you of the results It may take 4-5 days to release the results Call us if you do not receive results within 2 weeks Thanks. Herbert Marie MD, MPH 05/30/2016 3:01 PM documented in this encounter Progress Notes Herbert Marie MD,MPH - 05/30/2016 3:01 PM PDT Chief Complaint Patient presents with Kidney stone follow up, Pt stated he is sore. Pt would like to discuss gallstone. Subjective HPI Comments: Patient presents with: Kidney stone: follow up, Pt stated he is sore. Pt would like to discuss gallstone. 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 Went to ED 8-26 Hematuria on UA KUB showed calcifications likely renal stones both sides Treated with pain med and tamsulosin Pain was 9 of 10 Pain now 6 of 10 Pain radiated around to abdomen, pubic area and head of penis He thinks he passed stone but not know when or capture it He wonders if there is way to prevent stones Abdominal pain Has epigastric and LUQ pain Wonders if gallstones since they run in family Has epigastric burning Drinks lots of milk for this Relieves stomach burning but recurrs BP elevated today BP Readings from Last 3 Encounters: 05/30/16 : 124/98 05/25/16 : 145/108 04/19/16 : 112/80 HLD Not on med for this Lab Results Component Value Date CHOL 285 10/11/2014 LDL SAND FILLER 10/11/2014 HDL 35 10/11/2014 TRI 422 10/11/2014 Hyperglycemia Lab Results Component Value Date GLU 107* 05/25/2016 Rhinorrhea Has lots of rhinorrhea and congestion Not taking anything for it I have reviewed the PMH, SH, FHX, MEDS, ALLERGIES and updated the computerized patient jose rd appropriately Review of Systems Constitutional: Positive for malaise/fatigue. Negative for fever, weight loss and diaphores is. HENT: Negative for ear pain and hearing loss. Eyes: Negative for pain. Respiratory: Negative for cough and shortness of breath. Cardiovascular: Negative for chest pain, palpitations and leg swelling. Gastrointestinal: Positive for vomiting and abdominal pain. Negative for blood in stool. Genitourinary: Positive for dysuria, hematuria and flank pain. Musculoskeletal: Negative for joint pain. Neurological: Negative for dizziness, tremors, focal weakness, seizures and headaches. Endo/Heme/Allergies: Does not bruise/bleed easily. Psychiatric/Behavioral: Negative for memory loss. Objective BP 124/98 | Pulse 85 | Ht 1.702 m (5' 7") | Wt 90.538 kg (199 lb 9.6 oz) | SpO2 96% | BMI 3 1.25 kg/(m^2) Physical Exam Constitutional: He appears healthy. Non-toxic appearance. He has a sickly appearance. He a ppears distressed. HENT: Head: Normocephalic and atraumatic. Eyes: Conjunctivae and EOM are normal. Cardiovascular: Normal rate, regular rhythm and normal heart sounds. No murmur heard. Pulmonary/Chest: Effort normal and breath sounds normal. He has no wheezes. He has no rales . Abdominal: Soft. Bowel sounds are normal. There is no hepatosplenomegaly. There is tenderne ss in the right upper quadrant, epigastric area, left upper quadrant and left lower quadrant . There is CVA tenderness. There is no guarding. Musculoskeletal: He exhibits no edema. Lymphadenopathy: He has no cervical adenopathy. Neurological: He is alert. Skin: Skin is warm and dry. Psychiatric: Mood and affect normal. Lab Results Component Value Date URINECOLOR Light Red 05/25/2016 URAPPEARANCE Sl.Cloudy 05/25/2016 URINELE Negative 05/25/2016 URINENITRITE Negative 05/25/2016 URINEUROBILI Negative 05/25/2016 URINEPROTEIN 1+ 05/25/2016 URINEPH 5.5 05/25/2016 URINEBLOOD 3+ 05/25/2016 URSPECGRAV 1.025 11/03/2014 URINEKETONES Negative 05/25/2016 URINEBILI Negative 05/25/2016 URINEGLUCOSE Negative 05/25/2016 Lab Results Component Value Date URINEBACTERI 1+ 05/25/2016 URINEMUCOUS Moderate 05/25/2016 URINEREDCELL 50-100 05/25/2016 URINESQEPI Few 05/25/2016 URINEWBC 0-2 05/25/2016 KUB 8-26 IMPRESSION: 1. Two adjacent faint calcific densities project over left kidney. 2. 2.8 mm calcific density in the left abdomen, at the level of the transverse process of L3, suspicious for a left ureteral stone. 3. 3.4 mm calcification in the right kidney. 4. Nonobstructive bowel gas pattern. Assessment Mendez was seen today for kidney stone. Diagnoses and all orders for this visit: Recurrent kidney stones Epigastric pain - famotidine 40 mg oral tablet; Take 1 tablet by mouth once daily at bedtime. Elevated BP - COMPLETE METABOLIC SET (NA,K,CL,CO2,BUN,CREAT,GLUC,CA,AST,ALT,BILI TOTAL,ALK PHOS,ALB ,PROT TOTAL); Future - UA, DIPSTICK W/ REFLEX; Future Mixed hyperlipidemia - LIPID SET (TRIG, T CHOL, HDL, CALC LDL); Future Hyperglycemia - HEMOGLOBIN A1C, BLOOD; Future Allergic rhinitis, unspecified allergic rhinitis type - fluticasone 50 mcg/actuation nasal spray,suspension; Instill 2 sprays into each nostr il once daily. - loratadine 10 mg oral tablet; Take 1 tablet by mouth once daily. Return in about 4 weeks (around 06/27/2016) for Follow-up on Treatment, Follow-up on Tests, Health Maintenance Examination. Patient Instructions Kidney stone See kidney stone diet Call if pain does not continue to improve and resolve next week Upper abdominal pain Likely stomach issue and not gallstone See handout Reduce coffee and milk Take famotidine Blood pressure Return to check level Blood work Return for fasting labs No food after 10 pm You can have water, black coffee/tea in the morning before the blood test Go to lab - no appointment needed Saturday 8 am - 6 pm Saturday- Saturday 7 am- 6 pm Saturday 10 am - 4 pm [facility] Family [facility] at [address] We will inform you of the results It may take 4-5 days to release the results Call us if you do not receive results within 2 weeks Thanks. Herbert Marie MD, MPH 05/30/2016 3:01 PM documented in this encounter Plan of Treatment Not on filedocumented as of this encounter Results UA, DIPSTICK W/ REFLEX (06/21/2016 1:48 PM PDT) + [...] | + + + + + | [facility] | [address] [place] [address] | [place] | | | FAMILY MEDICINE | | [address] | | + + + + + LIPID SET (TRIG, T CHOL, HDL, CALC LDL) (06/21/2016 1:46 PM PDT) + + + + + + | Component | Value | Ref Range | Performed | Pathologist | | | | | At | Signature | + + + + + + | CHOLESTEROL | 239 (H) | 101 - 199 mg/dL | [facility] | | | (LAB) | | | A MEDICAL | | | | | | CENTER | | + + + + + + | TRIGLYCERID | 208 (H) | 45 - 150 mg/dL | [facility] | | | ES | | | A MEDICAL | | | | | | CENTER | | + + + + + + | HDL | 31 (L) | >40 mg/dL | [facility] | | | CHOLESTEROL | | | A MEDICAL | | | | | | CENTER | | + + + + + + | LDL | 166 (H) | <100 mg/dL | [facility] | | | CHOLESTEROL | | | A MEDICAL | | | , | | | CENTER | | | CALCULATED | | | | | + + + + + + | VLDL | 42 (H) | 9 - 30 mg/dL | [facility] | | | CHOLESTEROL | | | A MEDICAL | | | , | | | CENTER | | | CALCULATED | | | | | + + + + + + | NON-HDL | 208 (H) | <130 mg/dL | [facility] | | | CHOLESTEROL | | | A MEDICAL | | | | | | CENTER | | + + + + + + | CARDIAC | 8 | | [facility] | | | RISK RATIO | | | A MEDICAL | | | | | | CENTER | | + + + + + + | FASTING 8 | NoComment: 1 hr pc | | [facility] | | | HOURS [...] a level 30 mg/dL higher than | [facility] | | that for LDL cholesterol. Cardiac [...] + + | [facility] | [address] | [place], [place] | [phone] | | [facility] | [facility] | [address] | | + + + + + COMPLETE METABOLIC SET (NA,K,CL,CO2,BUN,CREAT,GLUC,CA,AST,ALT,BILI TOTAL,ALK PHOS,ALB,PROT TOTAL) (06/21/2016 1:46 PM PDT) + + + + + + | Component | Value | Ref Range | Performed | Pathologist | | | | | At | Signature | + + + + + + | GLUCOSE, | 101 | 70 - 105 mg/dL | [facility] | | | PLASMA | | | A MEDICAL | | | (LAB) | | | CENTER | | + + + + + + | BUN, PLASMA | 11 | 6 - 26 mg/dL | [facility] [...] + + + + | SODIUM, | 141 | 137 - 146 | [facility] | | | PLASMA | | mmol/L | A MEDICAL | | | (LAB) | | | CENTER | | + + + + + + | POTASSIUM, | 4.5 | 3.4 - 5.3 | [facility] | | | PLASMA | | mmol/L | A MEDICAL | | | (LAB) | | | CENTER | | + + + + + + | CHLORIDE, | 103 [...] + + + + | CALCIUM, | 9.5 | 8.5 - 10.8 | [facility] | | | PLASMA | | mg/dL | A MEDICAL | | | (LAB) | | | CENTER | | + + + + + + | BILIRUBIN | 0.5 | 0.2 - 1.2 mg/dL | [facility] | | | TOTAL | | | A MEDICAL | | | | | | CENTER | | + + + + + + | TOTAL | 6.9 | 5.8 - 8.5 g/dL | [facility] | | | PROTEIN, | | | A MEDICAL | | | PLASMA | | | CENTER | | | (LAB) | | | | | + + + + + + | ALBUMIN, | 4.3 | 3.5 - 5.0 g/dL | [facility] | | | PLASMA | | | A MEDICAL | | | (LAB) | | | CENTER | | + + + + + + | ALK PHOS | 49 | 32 - 180 U/L | [facility] | | | | | | A MEDICAL | | | | | | CENTER | | + + + + + + | AST(SGOT) | 25 | 10 - 41 U/L | [facility] | | | | | | A MEDICAL | | | | | | CENTER | | + + + + + + | ALT (SGPT) | 56 (H) | 7 - 51 U/L | [facility] | | | | | | A MEDICAL | | | | | | CENTER | | + + + + + + | EGFR | >60 | >60 mL/min | [facility] | | | - | | | A MEDICAL | | | [facility] | | | CENTER | | + [...] + + + + | BUN/CREATIN | 9 | 6 - 20 | [facility] | | | INE RATIO | | | A MEDICAL | | | | | | CENTER | | + + + + + + | FASTING 8 | NoComment: 1 hr pc | | [facility] | | | HOURS [...] the MDRD equation recommended by the | [facility] | | National Kidney Disease Education Program. Estimated GFR | [facility] | | Interpretive Information: <60 mL/min/1.73 [...] | + + + + + | [facility] | [address] | [place], [place] | [phone] | | [facility] | Streets | [address] | | + + + + + HEMOGLOBIN A1C, BLOOD (06/21/2016 1:46 PM PDT) + +-------+ + + + | Component | Value | Ref Range | Performed | Pathologist | | | | | At | Signature | + +-------+ + + + | HEMOGLOBIN | 5.8 | % | [facility] | | | A1C | | | A MEDICAL | | | | | | CENTER | | + +-------+ + + + | ESTIMATED | 120 | mg/dL | [facility] | | | [place] | | [...] Diabetic Ranges per DCCT & ADA: | [facility] | | Normal Range: <6% [facility] | | Good Control: <7% | | | Additional action suggested: >8% Non-Diabetic | | | Ranges: 4-6% [facility] Admiral's Glycohemoglobin | | | Diabetic Ranges: Normal Range: | | | 4.0-6.0% Good Control: | | | 6.0-8.0% Poor Control: | | | >8.0% | | + + + + + + + + | Performing | Address | City/State/Zipcode | Phone Number | | Organization | | | | + + + + + | [facility] | [address] | [place] | [phone] | | [facility] | [place] | [address] | | + + + + + documented in this encounter Visit Diagnoses + + | Diagnosis | + + | Recurrent kidney stones - Primary Calculus of kidney | + + | Epigastric pain Abdominal pain, epigastric | + + | Elevated BP Elevated blood pressure reading without diagnosis of hypertension | + + | Mixed hyperlipidemia | + + | Hyperglycemia Other abnormal glucose | + + | Allergic rhinitis, unspecified allergic rhinitis type | + + documented in this encounter
--- OUTSIDE RECORDS SUMMARY | ~2020-05-06 | XMS | Encounter Summary ---
Demographics + + + | Address | [address] | | | [place] [address] | + + + | Home Phone | | + + + | Preferred Language | Unknown | + + + | Marital Status | Single | + + + | Faith Affiliation | NRP | + + + | Race | White | + + + | Ethnic Group | Not or | + + + Author + + + | Author | [facility] | + + + | Organization | [facility] | + + + | Address | Unknown | + + + | Phone | Unavailable | + + + Support + + + + + | Name | Relationship | Address | Phone | + + + + + | Neda Castañeda | ECON | [place] | | | | | [address] | | + + + + + Care Team Providers + +------+ + | Care Corporate Responsibility Officer Name | Role | Phone | + [...] | | | | | | [place] [address] | | | | | | [phone] | | | +--------+ + + + [...]
--- OUTSIDE RECORDS SUMMARY | ~2020-05-06 | XMS | Encounter Summary ---
Demographics + + + | Address | [address] | | | [place] [address] | + + + | Home Phone | | + + + | Preferred Language | Unknown | + + + | Marital Status | Single | + + + | Uatsdin Affiliation | NRP | + + + | Race | White | + + + | Ethnic Group | Not or | + + + Author + + + | Author | [facility] | + + + | Organization | [facility] | + + + | Address | Unknown | + + + | Phone | Unavailable | + + + Support + + + + + | Name | Relationship | Address | Phone | + + + + + | Neda Castañeda | ECON | [place] | | | | | [address] | | + + + + + Care Team Providers + +------+ + | Care Mail Messenger Name | Role | Phone | + [...] | | 2016 | | Department at [facility] | MD [address] | | | | | Hospital [address] | [place], [place] | | | | | [place], | [address] | | | | | [place] [address] | [phone] | | | | | [phone] | | | +--------+ + + + [...] "Postconcussion Syndrome: Care Instructions", log into your [employer] acc ount at [email or web address] You can enter [email or web address] in the "[email or web address] Library" search box. Not on [employer]? Review the [employer] section of your After Visit Summary for directions on booker cardoza to sign up. Current as of: November 18, 2015 Content Version: [id number] [employer]. Care instructions adapted under license by [facility] [facility] [place]. If you have questions about a medical condition or this instr uction, always ask your healthcare professional. [employer] disclaims any nina anty or liability for [...]
--- OUTSIDE RECORDS SUMMARY | ~2020-05-06 | XMS | Encounter Summary ---
Demographics + + + | Address | [address] | | | [place] [address] | + + + | Home Phone | | + + + | Preferred Language | Unknown | + + + | Marital Status | Single | + + + | Anglican Affiliation | NRP | + + + | Race | White | + + + | Ethnic Group | Not or | + + + Author + + + | Author | [facility] | + + + | Organization | [facility] | + + + | Address | Unknown | + + + | Phone | Unavailable | + + + Support + + + + + | Name | Relationship | Address | Phone | + + + + + | Neda Castañeda | ECON | [place] | | | | | [address] | | + + + + + Care Team Providers + +------+ + | Care Community Theater Actor Name | Role | Phone | + +------+ + | Nathalie Castillo | PCP | | + +------+ + Encounter Details +--------+ + + + + | Date | Type | Department | Care Team | Description | +--------+ + + + + | 03/10/ | Results | [facility] | Talia Delvalle MD | | | 2014 | Only | Department | [facility] | | | | | | [facility] [address] | | | | | | [place] | | | | | | [place] [address] | | | | | | [phone] | | | | | | | [...] | + +--------+ + + + | CARCINOEMBRYONIC AG, | Routin | 03/10/2015 | | Results for this | | SERUM | e | 1:55 PM | | procedure are in the | | | | PDT | | results section. | + +--------+ + + + | CANCER AG GI (19-9), | Routin | 03/10/2015 | | Results for this | | SERUM | e | 1:55 PM | | procedure are in the | | | | PDT | | results section. | + +--------+ + + + documented in this encounter Results CARCINOEMBRYONIC AG, SERUM (03/10/2015 1:55 PM PDT) + + + + + + | Component | Value | Ref Range | Performed | Pathologist | | | | | At | Signature | + + + + + + | [facility]INO | 1.67Comment: REFERENCE | ng/mL | [facility] | | | EMBRY[facility] | RANGE: Non-smokers: | | [facility] | | | AG, SERUM | 0.0 - 3.0 ng/mL | | CENTER | | | | Smokers: 0.0 - | | | | | | 5.0 ng/mL | | | | | | | | | | + + + + + + + + | Specimen | + + | | + + + + + + + | Performing | Address | City/State/Zipcode | Phone Number | | Organization | | | | + + + + + | [facility] | | | | | LABORATORY | | | | + + + + + | [facility] | [address] | [place] | [phone] | | [facility] | [address] | [address] | | + + + + + [facility] GI (19-9), SERUM (03/10/2015 1:55 PM PDT) + + + + + + | Component | Value | Ref Range | Performed | Pathologist | | | | | At | Signature | + + + + + + | [facility] | 3Comment: This test was | <34 U/mL | [facility] | | | GI (19-9) | performed using the | | DIAGNOSTICS | | | | Siemenschemiluminescent | | [facility] | | | | method. Values obtained | | | | | | fromdifferent assay | | | | | | methods cannot be | | | | | | usedinterchangeably. CA | | | | | | 19-9 levels, regardless | | | | | | ofvalue, should not be | | | | | | interpreted as | | | | | | absoluteevidence of the | | | | | | presence or absence of | | | | | | disease.Test performed | | | | | | at [facility] | | | | | | [id number] | | | | | | [address] | | | | | | [address], [place] | | | | | | [address]Nxrfsrnt: | | | | | | ALEXEI HAYDEN MD | | | | + + + + + + + + | Specimen | + + | | + + + + + + + | Performing | Address | City/State/Zipcode | Phone Number | | Organization | | | | + + + + + | [facility] | [address] | [place] [address] | [phone] | | [facility] | | | | + + + + + documented in this encounter Visit Diagnoses Not on filedocumented in this encounter"
--- OUTSIDE RECORDS SUMMARY | ~2020-05-06 | XMS | Encounter Summary ---
Demographics + + + | Address | [address] | | | [place] [address] | + + + | Home Phone | | + + + | Preferred Language | Unknown | + + + | Marital Status | Single | + + + | Nondenominational Affiliation | NRP | + + + | Race | White | + + + | Ethnic Group | Not or | + + + Author + + + | Author | [facility] | + + + | Organization | [facility] | + + + | Address | Unknown | + + + | Phone | Unavailable | + + + Support + + + + + | Name | Relationship | Address | Phone | + + + + + | Neda Castañeda | ECON | [place] | | | | | [address] | | + + + + + Care Team Providers + +------+ + | Care Property Underwriter Name | Role | Phone | + +------+ + PCP | Unavailable | + +------+ + Reason for Visit + + + | Reason | Comments | + + + | Refill Request | Gabapentin 300 mg | + + + Encounter Details +--------+--------+ + + + | Date | Type | Department | Care Team | Description | +--------+--------+ + + + | 08/05/ | Refill | [facility] | Ankur Trejo, | Refill Request | | 2017 | | Medicine [address] | MD [address] | (Gabapentin 300 mg) | | | | [address] [place], | [place] [address] | | | | | [place] [address] | [phone] | | | | | [phone] | | | +--------+--------+ + + + [...] + | Diagnosis | + + | Left thigh pain Pain in limb | + + documented in this encounter"
--- OUTSIDE RECORDS SUMMARY | ~2020-05-06 | XMS | Encounter Summary ---
Demographics + + + | Address | [address] | | | [place] [address] | + + + | Home Phone [...] Author + + + | Author | [facility] | + + + | Organization | [facility] | + + + | Address | Unknown | + + + | Phone | Unavailable | + + + Support + + + + + | Name | Relationship | Address | Phone | + + + + + | Neda Castañeda | ECON | [place] | | | | | [address] | | + + + + + Care Team Providers + +------+ + | Care Credit Support Counselor Name | Role | Phone | + +------+ + PCP | Unavailable | + +------+ + Reason for Visit + + + | Reason | Comments | + + + | Refill Request | famotidine | + + + Encounter Details +--------+--------+ + + + | Date | Type | Department | Care Team | Description | +--------+--------+ + + + | 09/09/ | Refill | [facility] | Miguel A Peraza PA-C | Refill Request | | 2017 | | Medicine [address] | [address] | (famotidine ) | | | | [address] [place], | [place], [place] | | | | | [place] [address] | [address] | | | | | [phone] | | | | | | | [...]
--- OUTSIDE RECORDS SUMMARY | ~2020-05-06 | XMS | Encounter Summary ---
Demographics + + + | Address | [address] | | | [place] [address] | + + + | Home Phone | | + + + | Preferred Language | Unknown | + + + | Marital Status | Single | + + + | Baptism Affiliation | NRP | + + + | Race | White | + + + | Ethnic Group | Not or | + + + Author + + + | Author | [facility] | + + + | Organization | [facility] | + + + | Address | Unknown | + + + | Phone | Unavailable | + + + Support + + + + + | Name | Relationship | Address | Phone | + + + + + | Neda Castañeda | ECON | [place] | | | | | [address] | | + + + + + Care Team Providers + +------+ + | Care Salesperson Hearing Aids Name | Role | Phone | + [...] | | [address] [place], | [place], [place] | | | | | [place] [address] | [address] | | | | | [phone] | [phone] | | | | | | | [...]
--- OUTSIDE RECORDS SUMMARY | ~2020-05-06 | XMS | Encounter Summary ---
Demographics + + + | Address | [address] | | | [place] [address] | + + + | Home Phone | | + + + | Preferred Language | Unknown | + + + | Marital Status | Single | + + + | Zoroastrianism Affiliation | NRP | + + + | Race | White | + + + | Ethnic Group | Not or | + + + Author + + + | Author | [facility] | + + + | Organization | [facility] | + + + | Address | Unknown | + + + | Phone | Unavailable | + + + Support + + + + + | Name | Relationship | Address | Phone | + + + + + | Neda Castañeda | ECON | [place] | | | | | [address] | | + + + + + Care Team Providers + +------+ + | Care Head Up Operator Name | Role | Phone | + +------+ + | Herbert Marie MD,MPH | PCP | Unavailable | + +------+ + Encounter Details +--------+------+ + + + | Date | Type | Department | Care Team | Description | +--------+------+ + + + | 03/13/ | Lab | Laboratory at [facility] | | Prediabetes; | | 2016 | | Family Medicine | | Elevated ALT | | | | [address] | | measurement; | | | | [place] | | Hypocalcemia; Mixed | | | | [address] | | hyperlipidemia; | | | | [phone] | | Recurrent kidney | | | | | | stones | +--------+------+ + + + Social History + +-------+ [...] + + + | COMPLETE METABOLIC | Routin | 03/13/2017 | Elevated ALT | Results for this | | SET | e | 9:32 AM | measurement | procedure are in the | | (NA,K,CL,CO2,BUN,CRE | | PDT | Hypocalcemia | results section. | | AT,GLUC,CA,AST,ALT,B | | | | | | FRED TOTAL,ALK | | | | | | PHOS,ALB,PROT TOTAL) | | | | | + +--------+ + + + | LIPID SET (TRIG, T | Routin | 03/13/2017 | Mixed | Results for this | | CHOL, HDL, CALC LDL) | e | 9:32 AM | hyperlipidemia | procedure are in the | | | | PDT | | results section. | + +--------+ + + + | HEMOGLOBIN A1C, | Routin | 03/13/2017 | Prediabetes | Results for this | | BLOOD | e | 9:32 AM | | procedure are in the | | | | PDT | | results section. | + +--------+ + + + | UA, DIPSTICK W/ | Routin | 03/13/2017 | Recurrent kidney | Results for this | | REFLEX | e | 9:30 AM | stones | procedure are in the | | | | PDT | | results section. | + +--------+ + + + documented in this encounter Results LIPID SET (TRIG, T [...] LDL cholesterol. Cardiac Risk Ratio Interpretation: | [facility] | | Interpretation Cardiac Risk Ratio Below Average | | | Risk 0.0 - 3.4 Above Average Risk | | | 3.5 - 4.9 | | + + + + + + + + | Performing | Address | City/State/Zipcode | Phone Number | | Organization | | | | + + + + + | [facility] | [address] | [place], [place] | [phone] | | [facility] | Street | [address] | | + + + + + COMPLETE METABOLIC SET (NA,K,CL,CO2,BUN,CREAT,GLUC,CA,AST,ALT,BILI TOTAL,ALK PHOS,ALB,PROT TOTAL) (03/13/2017 9:32 AM PDT) + +-------+ + + + | Component | Value | Ref Range | Performed | Pathologist | | | | | At | Signature | + +-------+ + + + | GLUCOSE, | 98 | 70 - 105 mg/dL | [facility] | | | PLASMA | | | A MEDICAL | | | (LAB) | | | CENTER | | + +-------+ + + + | BUN, PLASMA | 13 | 6 - 26 mg/dL | [facility] | | | (LAB) | | | [...] | | A MEDICAL | | | [place] | | | CENTER | | + [...] the MDRD equation recommended by the | [facility] | | National Kidney Disease Education Program. Estimated GFR | [facility] | | Interpretive Information: <60 mL/min/1.73 [...] + + + + | [facility] | [address] | [place], [place] | [phone] | | [facility] | Street | [address] | | + + + + + HEMOGLOBIN A1C, BLOOD (03/13/2017 9:32 AM PDT) + +-------+ + + + | Component | Value | Ref Range | Performed | Pathologist | | | | | At | Signature | + +-------+ + + + | HEMOGLOBIN | 5.7 | % | [facility] | | | A1C | | | A MEDICAL | | | | | | CENTER | | + +-------+ + + + | ESTIMATED | 117 | mg/dL | [facility] | | | [place] | | | A MEDICAL | | | GLUCOSE | | | CENTER | | + +-------+ + + + + + | Specimen | + + | Blood - Blood | | (substance) | + + + + + | Narrative | Performed At | + + + | Glycohemoglobin Recommended Diabetic Ranges per DCCT & ADA: | [facility] | | Normal Range: <6% [facility] | | Good Control: <7% | | | Additional action suggested: >8% Non-Diabetic | | | Ranges: 4-6% Rpg Programmer Analyst's Glycohemoglobin | | | Diabetic Ranges: Normal Range: | | | 4.0-6.0% Good Control: | | | 6.0-8.0% Poor Control: | | | >8.0% | | + + + + + + + + | Performing | Address | City/State/Zipcode | Phone Number | | Organization | | | | + + + + + | [facility] | And | [place], [place] | [phone] | | [facility] [place] | Street | [address] | | + + + + + [...] | + + + + + | [facility] | [address] | [place], [place] | | | FAMILY MEDICINE | | [address] | | + + + + + documented in this encounter Visit Diagnoses + + | Diagnosis | + + | Prediabetes Other abnormal glucose | + + | Elevated ALT measurement Nonspecific elevation of levels of transaminase or lactic | | acid dehydrogenase (LDH) | + + | Hypocalcemia | + + | Mixed hyperlipidemia | + + | Recurrent kidney stones Calculus of kidney | + + documented in this encounter"
--- OUTSIDE RECORDS SUMMARY | ~2020-05-06 | XMS | Encounter Summary ---
Demographics + + + | Address | [address] | | | [place] [address] | + + + | Home Phone | | + + + | Preferred Language | Unknown | + + + | Marital Status | Single | + + + | Yarsani Affiliation | NRP | + + + [...] [place] | | | | | [address] | | + + + + + Care Team Providers + +------+ + | Care Psychological Science Professor Name | Role | Phone | + +------+ + | Miguel A Peraza PA-C | PCP | | + +------+ + Reason for Visit + + + | Reason | Comments | + + + | Consultation | colonoscopy | + + + Consultation (Routine) +--------+--------+ + + + + | Status | Reason | Specialty | Diagnoses / | Referred By | Referred To | | | | | Procedures | Contact | Contact | +--------+--------+ + + + + | Closed | | Surgery | Diagnoses | Harjeet Peraza Gen | | | | | Family | SERGIO Grady | Surg Mob | | | | | history of | [address] | [address] | | | | | colon cancer | [address] | [address] | | | | | Procedures | [place], [place] | [place] | | | | | CONSULT TO | [address] | [address] | | | | | SURGERY - | Phone: | Phone: | | | | | GENERAL | [phone] | [phone] | | | | | | Fax: | Fax: | | | | | | [phone] | [phone] | +--------+--------+ + + + + Encounter Details +--------+---------+ + + + | Date | Type | Department | Care Team | Description | +--------+---------+ + + + | 10/03/ | Office | [facility] | Humberto | Family history of | | 2018 | Visit | Surgery Clinic [address] | Angel Woodall MD [address] | colon cancer | | | | [address] | [address] | (Primary Dx) | | | | [place], [place] | [place], [place] | | | | | [address] | [address] | | | | | [phone] | [phone] | | | | | | | [...] + + + | Blood Pressure | 129/86 | 10/03/2017 10:56 AM | | | | | PST | | + + + + + | Pulse | 73 | 10/03/2017 10:56 AM | | | | | PST [...] + + + + | Weight | 87.1 kg (192 lb) | 10/03/2017 10:56 AM | | | | | PST | | + + + + + | Height | 162.6 cm (5' 4") | 10/03/2017 10:56 AM | | | | | PST | | + + + + + | Body Mass Index | 32.96 | 10/03/2017 10:56 AM | | | | | PST | | + + + + + documented in this encounter Progress Notes Angel Paul MD - 10/03/2017 11:00 AM PSTFormatting of this note might be differe nt from the original. Chief Complaint: Chief Complaint Patient presents with Consultation colonoscopy History of Present Illness: 42-year-old man with a family history of colon cancer. His father had colon cancer. The p atient had a colonoscopy almost 3 years ago and at that time had a tubular adenoma removed. He also had a colonic lipoma. He has had no issues since then. He denies bright red blood per rectum, weight loss, or abdominal pain. Past Medical History Past Medical History: Diagnosis Date Abdominal pain 08/03/2013 Abdominal pain 08/03/2013 ER visit Epigastric pain, gastroesophageal reflux disease, possible acute gastritis, pos sible peptic ulcer disease. See scanned report Acute back pain 02/26/2015 ER visit Anxiety Bipolar 1 disorder (HCC) Candidiasis 09/30/2013 ER visit dermal candidiasis, possible moderate contact dermatitis Pt encouraged to n ot shave groin region as possible mechanical irritation of skin secondary to shaving. Keflex 500mg, 1 tablet every 6hrs x 7 days given for no improvement in 2 days. Hydrocortison 1% cr eam BID x 3, nystatin BID until resolved Cervical radiculopathy 12/2011 Chronic pain Depression Family hx of colon cancer Fam hx of pancreatic ca, colon ca, prostate ca, lung ca, bladder ca. R/O genetic carrier status Genetic testing for ca risk obtained. Follow up after test results. See scanned re port. GERD (gastroesophageal reflux disease) 08/03/2013 Headache Headache, migraine Herniated nucleus pulposus, cervical 12/2011 left C6-C7 HTN (hypertension) resolved Injury 2005 bone/muscle Kidney stones 2009 PUD (peptic ulcer disease) 08/03/2013 ER visit possible PUD Follow up with Figueroa Ortega Past Surgical History Past Surgical History Procedure Laterality Date Appendectomy Cervical spine surgery 01/22/2012 anterior cervical discectomy C6-C7 [facility] Laminotomy of cervical vertebra with nerve root decompression 01/22/2012 Vasectomy 2009 Colonoscopy with biopsy 11/19/2014 Appendectomy 1998 Interbody placement of biomechanical device (alana-c) 01/22/2012 Medication List Current Outpatient Prescriptions: famotidine 40 mg oral tablet, Take 1 tablet by mouth once daily at bedtime., Disp: 30 tablet, Rfl: 5 gabapentin 300 mg oral capsule, Take 2 capsules by mouth three times daily., Disp: 540 caps ule, Rfl: 1 tiZANidine 4 mg oral tablet, Take 1 tablet by mouth every six hours as needed. Max: 36 mg / day., Disp: 60 tablet, Rfl: 2 Allergy List Allergies Allergen Reactions Pineapple Anaphylaxis Bromelains Throat Swelling / Closing Ibuprofen Unknown Naproxen Bleeding Penicillins Throat Swelling / Closing Family Medical History Family History Problem Relation GI Brother GERD Cancer Brother Pancreatic Other Neurological Father Alzheimer's Disease Colon Cancer Father Cancer Father Obesity Mother Cancer Mother Bladder GI Sister GERD Cancer Sister Pancreatic Social History Social History Social History Marital status: Spouse name: N/A Number of children: N/A Years of education: N/A Social History Main Topics Smoking status: Former Smoker Quit date: 03/08/2015 Smokeless tobacco: Never Used Alcohol use No Drug use: No Sexual activity: Not on file Other Topics Concern Not on file Social History Narrative No narrative on file Immunizations Immunization History Administered Date(s) Administered Flu trivalent injectable pfree 10/11/2014 Influenza Injectable Quadrivalent (IIV4 P-Free) 06/21/2016, 09/12/2017 Td (adult), adsorbed 09/30/2010 Varicella 07/05/2016, 08/02/2016 Review of Systems Review of Systems Constitutional: Negative for chills, fever, [...] other systems reviewed and are negative. A Manager Technical Services was offered to the patient and declined. Vitals BP 129/86 | Pulse 73 | Ht 1.626 m (5' 4") | Wt 87.1 kg (192 lb) | BMI 32.96 kg/(m^2) Physical Examination Gen- NAD JOSEPH- GAGE, MMM Resp- CTA B CV- RRR Abd- soft NTND Assessment/Plan There are no diagnoses linked to this encounter. 42-year-old man with a personal history of tubular adenoma and family history of colon canc er. He will be due for another colonoscopy in [address] him on the recall lis t. Otherwise he may follow up p.r.n. No follow-up information. documented in t his encounter Plan of Treatment Not on filedocumented as of this encounter Visit Diagnoses + + | Diagnosis | + + | Family history of colon cancer - Primary Family history of malignant neoplasm of | | gastrointestinal tract | + + documented in this encounter
--- OUTSIDE RECORDS SUMMARY | ~2020-05-06 | XMS | Encounter Summary ---
Demographics + + + | Address | [address] | | | [place] [address] | + + + | Home Phone | | + + + | Preferred Language | Unknown | + + + | Marital Status | Single | + + + | Rastafarian Affiliation | NRP | + + + | Race | White | + + + | Ethnic Group | Not or | + + + Author + + + | Author | [facility] | + + + | Organization | [facility] | + + + | Address | Unknown | + + + | Phone | Unavailable | + + + Support + + + + + | Name | Relationship | Address | Phone | + + + + + | Neda Castañeda | ECON | [place] | | | | | [address] | | + + + + + Care Team Providers + +------+ + | Care Web Services Architect Name | Role | Phone | + +------+ + | Herbert Marie MD,MPH | PCP | Unavailable | + +------+ + Reason for Visit + + + | Reason | Comments | + + + | Refill Request | Famotidine 40 mg | + + + Encounter Details +--------+--------+ + + + | Date | Type | Department | Care Team | Description | +--------+--------+ + + + | 09/10/ | Refill | [facility] | Marie, Herbert C, | Refill Request | | 2016 | | Medicine [address] | [facility] | (Famotidine 40 mg) | | | | [address] [place], | | | | | | [place] [address] | | | | | | [phone] | | | +--------+--------+ + + + [...]
--- OUTSIDE RECORDS SUMMARY | ~2020-05-06 | XMS | Encounter Summary ---
Demographics + + + | Address | [address] | | | [place] [address] | + + + | Home Phone | | + + + | Preferred Language | Unknown | + + + | Marital Status | Single | + + + | Jew Affiliation | NRP | + + + | Race | White | + + + | Ethnic Group | Not or | + + + Author + + + | Author | [facility] | + + + | Organization | [facility] | + + + | Address | Unknown | + + + | Phone | Unavailable | + + + Support + + + + + | Name | Relationship | Address | Phone | + + + + + | Neda Castañeda | ECON | [place] | | | | | [address] | | + + + + + Care Team Providers + +------+ + | Care Financial Sales Assistant Name | Role | Phone | + +------+ + | Nathalie Castillo | PCP | | + +------+ + Encounter Details +--------+ + + + + | Date | Type | Department | Care Team | Description | +--------+ + + + + | 08/22/ | Results | [facility] | Herbert Gallego, | | | 2010 | Only | Department | MD [address] | | | | | | [place] | | | | | | [address] | | | | | | [phone] | | | | | | | [...] | + +--------+ + + + | CHEST 2 VIEW [id number] | Routin | 08/22/2011 | | Results for this | | | e | 7:13 PM | | procedure are in the | | | | PST | | results section. | + +--------+ + + + documented in this encounter Results CHEST 2 VIEW [id number] (08/22/2011 7:13 PM PST) + + | Specimen | + + | | + + + + + | Narrative | Performed At | + + + | TWO VIEWS OF THE CHEST INDICATIONS: Fall. Right rib pain. | [facility] | | FINDINGS: PA and lateral views of the chest were obtained. | DEPARTMENT OF | | Cardiomediastinal size is normal. The lungs and pleural spaces are | RADIOLOGY | | clear. There is no pneumothorax. No acute osseous abnormality is | | | identified. IMPRESSION: No acute disease in the chest. Job [id number] | | + + + + + | Procedure Note | + + | Interface, Radiology Results - 05/13/2015 12:13 PM PDT TWO VIEWS OF THE CHEST | | INDICATIONS: Fall. Right rib pain. | | FINDINGS: PA and lateral views of the chest were obtained. | | Cardiomediastinal size is normal. The lungs and pleural spaces are | | clear. There is no pneumothorax. | | No acute osseous abnormality is identified. | | IMPRESSION: No acute disease in the chest. | | Job [id number] | + + + +---------+ + + [...]
--- OUTSIDE RECORDS SUMMARY | ~2020-05-06 | XMS | Encounter Summary ---
Demographics + + + | Address | [address] | | | [place] [address] | + + + | Home Phone | | + + + | Preferred Language | Unknown | + + + | Marital Status | Single | + + + | Zoroastrian Affiliation | NRP | + + + | Race | White | + + + | Ethnic Group | Not or | + + + Author + + + | Organization | Unknown | + + + | Address | Unknown | + + + | Phone | Unavailable | + + + Support + + + + + | Name | Relationship | Address | Phone | + + + + + | Neda Castañeda | ECON | [place] | | | | | [address] | | + + + + + Care Team Providers + +------+ + | Care Plastic Machine Operator Name | Role | Phone | + +------+ + | Violeta Parker DO | PCP | | + +------+ + Encounter Details +--------+--------+ + + + | Date | Type | Department | Care Team | Description | +--------+--------+ + + + | 09/04/ | Travel | | | | | 2019 | | | | | +--------+--------+ + [...]
--- OUTSIDE RECORDS SUMMARY | ~2020-05-06 | XMS | Encounter Summary ---
Demographics + + + | Address | [address] | | | [place] [address] | + + + | Home Phone | | + + + | Preferred Language | Unknown | + + + | Marital Status | Single | + + + | Amish Affiliation | NRP | + + + [...] [place] | | | | | [address] | | + + + + + Care Team Providers + +------+ + | Care Recycle Driver Name | Role | Phone | + +------+ + | Violeta Parker DO | PCP | | + +------+ + Encounter Details +--------+ + + + + | Date | Type | Department | Care Team | Description | +--------+ + + + + | 08/04/ | Document-Sc | [facility] | [place], | | | 2019 | christopher | Surgery [facility] [address] | Angel Woodall MD [address] | | | | | [address] | [address] | | | | | [place], [place] | [place], [place] | | | | | [address] | [address] | | | | | [phone] | [phone] | | | | | | | [...]
--- OUTSIDE RECORDS SUMMARY | ~2020-05-06 | XMS | Encounter Summary ---
Demographics + + + | Address | [address] | | | [place] [address] | + + + | Home Phone | | + + + | Preferred Language | Unknown | + + + | Marital Status | Single | + + + | Mu-Ism Affiliation | NRP | + + + | Race | White | + + + | Ethnic Group | Not or | + + + Author + + + | Author | [facility] | + + + | Organization | [facility] | + + + | Address | Unknown | + + + | Phone | Unavailable | + + + Support + + + + + | Name | Relationship | Address | Phone | + + + + + | Neda Castañeda | ECON | [place] | | | | | [address] | | + + + + + Care Team Providers + +------+ + | Care Charge Account Authorizer Name | Role | Phone | + +------+ + | Miguel A Peraza PA-C | PCP | | + +------+ + Reason for Visit + + + | Reason | Comments | + + + | Refill Request | Tizanidine 4 mg | + + + Encounter Details +--------+--------+ + + + | Date | Type | Department | Care Team | Description | +--------+--------+ + + + | 03// | Refill | [facility] | Miguel A Peraza PA-C | Refill Request | | 2017 | | [address] | (Tizanidine 4 mg) | | | | [address] [place], | [place], [place] | | | | | [place] [address] | [address] | | | | | [phone] | [phone] | | | | | | | [...]
--- OUTSIDE RECORDS SUMMARY | ~2020-05-06 | XMS | Encounter Summary ---
Demographics + + + | Address | [address] | | | [place] [address] | + + + | Home Phone [...] [place] | | | | | [address] | | + + + + + Care Team Providers + +------+ + | Care Exhibition Carver Name | Role | Phone | + +------+ + | Violeta Parker DO | PCP | | + +------+ + Encounter Details +--------+--------+ + + + | Date | Type | Department | Care Team | Description | +--------+--------+ + + + | 04/30/ | Travel | | | | | 2018 | | | | | +--------+--------+ + [...]
--- OUTSIDE RECORDS SUMMARY | ~2020-05-06 | XMS | Encounter Summary ---
Demographics + + + | Address | [address] | | | [place] [address] | + + + | Home Phone [...] Author + + + | Author | [facility] | + + + | Organization | [facility] | + + + | Address | Unknown | + + + | Phone | Unavailable | + + + Support + + + + + | Name | Relationship | Address | Phone | + + + + + | Neda Castañeda | ECON | [place] | | | | | [address] | | + + + + + Care Team Providers + +------+ + | Care Home Security Alarm Installer Name | Role | Phone | + +------+ + | Herbert Marie MD,MPH | PCP | Unavailable | + +------+ + Reason for Visit + + + | Reason | Comments | + + + | Refill Request | | + + + Encounter Details +--------+--------+ + + + | Date | Type | Department | Care Team | Description | +--------+--------+ + + + | 03/19/ | Refill | Family Medicine at | Herbert Marie, | Refill Request | | 2015 | | [facility] | [facility] | | | | | Clinic [address] | | | | | [address] [place], [place] | | | | | | [address] | | | | | | [phone] | | | +--------+--------+ + + + Social History + +-------+ +--------+------+ | Tobacco Use | Types | Packs/Day | Years | Date | | | | | Used | | + +-------+ +--------+------+ | Former Smoker | | | | | + +-------+ +--------+------+ + + +---------+ + | Alcohol Use | Drinks/Week | oz/Week | Comments | + + +---------+ + | No | | | | + + +---------+ + [...]
--- OUTSIDE RECORDS SUMMARY | ~2020-05-06 | XMS | Encounter Summary ---
Demographics + + + | Address | [address] | | | [place] [address] | + + + | Home Phone | | + + + | Preferred Language | Unknown | + + + | Marital Status | Single | + + + | Lutheran Affiliation | NRP | + + + | Race | White | + + + | Ethnic Group | Not or | + + + Author + + + | Author | [facility] | + + + | Organization | [facility] | + + + | Address | Unknown | + + + | Phone | Unavailable | + + + Support + + + + + | Name | Relationship | Address | Phone | + + + + + | Neda Santos | ECON | [place] | | | | | [address] | | + + + + + Care Team Providers + +------+ + | Care Consumer Affairs Manager Name | Role | Phone | + +------+ + | Nathaniel Figueroa MD,MPH | PCP | Unavailable | + +------+ + Encounter Details +--------+ + + + + | Date | Type | Department | Care Team | Description | +--------+ + + + + | 04/19/ | Hospital | Diagnostic Imaging | | | | 2015 | Encounter | at [facility] | | | | | | [address] | | | | | | [place] | | | | | | [address] | | | | | | [phone] | | | +--------+ + + + [...] + +--------+ + + + | X-RAY HIP 2 VIEWS | Routin | 04/19/2016 | Left hip pain | Results for this | | LEFT W/ PELVIS 1 | e | 1:45 PM | | procedure are in the | | VIEW | | PDT | | results section. | + +--------+ + + + documented in this encounter Results X-RAY HIP 2 VIEWS LEFT W/ PELVIS 1 VIEW (04/19/2016 1:45 PM PDT) + + | Specimen | + + | | + + + + + | Narrative | Performed At | + + + | [address] | [facility] | | [place] [address] | DEPARTMENT | | [phone] Name: CHUCK SANTOS Phys: | RADIOLOGY | | NATHANIEL FIGUEROA : 1975 Sex: M CSN: | | | [id number] MR# [id number] Exam Date: 04/19/2016 | | | EXAM: X-RAY HIP 2 VIEWS LEFT W/ PELVIS 1 VIEW CLINICAL HISTORY: | | | Left hip pain, left S1 tenderness. COMPARISON: None available. | | | TECHNIQUE: AP view of the pelvis was obtained. FINDINGS: There | | | is no acute fracture, avascular necrosis or focal osseous | | | destruction. Both hip joints are mildly narrowed diffusely with | | | minimal acetabular spurring. The SI joints and symphysis pubis are | | | intact. The lateral cortex of the right femoral neck is slightly | | | convex, which can predispose to femoroacetabular impingement. | | | However, there is no obvious underlying fibrocystic complex. | | | IMPRESSION: Mild diffuse narrowing of both hip joints with minimal | | | acetabular spurring. Slightly convex lateral cortex of the right | | | femoral neck, which can predispose to femoroacetabular impingement. | | | REPORT SIGNED IN OTHER VENDOR SYSTEM 04/19/2016 Reported | | | by: WADE MARTÍNEZ MD Electronically signed by: WADE | | | MD TANYA Transcribed Date/Time: 04/19/2016 14:11 | | | Warp Knitter Helper: FLUENCY | | + + + + + | Procedure Note | + + | Interface, Radiology Results - 04/19/2016 2:16 PM PDT [address] | | [address] [place] [address] | | Name: TOMCHUCK Phys: NATHANIEL FIGUEROA : 1975 Sex: M CSN: | | [id number] MR# [id number] Exam Date: 04/19/2016 EXAM:X-RAY HIP 2 VIEWS LEFT W/ | | PELVIS 1 VIEW CLINICAL HISTORY:Left hip pain, left S1 tenderness. COMPARISON:None | | available. TECHNIQUE:AP view of the pelvis was obtained. FINDINGS:There is no acute | | fracture, avascular necrosis or focal osseousdestruction. Both hip joints are mildly | | narrowed diffusely withminimal acetabular spurring. The SI joints and symphysis pubis | | areintact. The lateral cortex of the right femoral neck is slightlyconvex, which can | | predispose to femoroacetabular impingement.However, there is no obvious underlying | | fibrocystic complex. IMPRESSION:Mild diffuse narrowing of both hip joints with minimal | | acetabularspurring. Slightly convex lateral cortex of the right femoral neck,which can | | predispose to femoroacetabular impingement. REPORT SIGNED IN OTHER VENDOR SYSTEM | | 04/19/2016 Reported by: WADE MARTÍNEZ MD Electronically signed by: WADE | | MD TANYA Transcribed Date/Time: 04/19/2016 14:11Transcriptionist: VAL | |CLINICAL HISTORY: | |Left hip pain, left S1 tenderness. | | | |COMPARISON: | |None available. | | | |TECHNIQUE: | |AP view of the pelvis was obtained. | | | |FINDINGS: | |There is no acute fracture, avascular necrosis or focal osseous | |destruction. Both hip joints are mildly narrowed diffusely with | |minimal acetabular spurring. The SI joints and symphysis pubis are | |intact. The lateral cortex of the right femoral neck is slightly | |convex, which can predispose to femoroacetabular impingement. | |However, there is no obvious underlying fibrocystic complex. | | | |IMPRESSION: | |Mild diffuse narrowing of both hip joints with minimal acetabular | |spurring. Slightly convex lateral cortex of the right femoral neck, | |which can predispose to femoroacetabular impingement. | | | | | | REPORT SIGNED IN OTHER VENDOR SYSTEM 04/19/2016 | |Reported by: WADE MARTÍNEZ MD | | | |Electronically signed by: WADE MATRÍNEZ MD | | | |Transcribed Date/Time: 04/19/2016 14:11 | |Warp Knitter Helper: VAL | | | | | | | + + + +---------+ + + | Performing | Address | City[facility] | Phone Number | | Organization | | | | + +---------+ + + | [facility]MENT OF | | | | | RADIOLOGY | | | | + +---------+ + + documented in this encounter Visit Diagnoses + + | Diagnosis | + + | Left hip pain Pain in joint, pelvic region and thigh | + + documented in this encounter"
--- OUTSIDE RECORDS SUMMARY | ~2020-05-06 | XMS | Encounter Summary ---
Demographics + + + | Address | [address] | | | [place] [address] | + + + | Home Phone | | + + + | Preferred Language | Unknown | + + + | Marital Status | Single | + + + | Gnosticism Affiliation | NRP | + + + | Race | White | + + + | Ethnic Group | Not or | + + + Author + + + | Author | [facility] | + + + | Organization | [facility] | + + + | Address | Unknown | + + + | Phone | Unavailable | + + + Support + + + + + | Name | Relationship | Address | Phone | + + + + + | Neda Santos | ECON | [place] | | | | | [address] | | + + + + + Care Team Providers + +------+ + | Care Dimension Mill Worker Name | Role | Phone | + +------+ + | Iliana Parker DO | PCP | | + +------+ + Encounter Details +--------+ + + + + | Date | Type | Department | Care Team | Description | +--------+ + + + + | 02/10/ | Transcribe | [facility] | Transcribe | | | 2019 | Orders | [facility] [address] | Encounter, Provider, | | | | | [address] | [address] | | | | | [place] | [facility] [place] [address] | | | | | [address] | | | +--------+ + + + [...] filedocumented as of this encounter Results US ABDOMEN LIMITED (03/03/2019 7:40 AM PDT) + + | Specimen | + + | | + + + + + | Narrative | Performed At | + + + | [address] [place] [address] | [facility] | | [place] [address] | [facility] | | [phone] Name: CHUCK SANTOS Phys: | RADIOLOGY | | ILIANA JAVED : 1975 Sex: M | | | CSN: [id number] MR# [id number] Exam Date: | | | 03/03/2019 EXAM: US ABDOMEN LIMITED CLINICAL HISTORY: | | | Questionable abdominal wall hernia COMPARISON: CT scan from | | | April 2018 TECHNIQUE: Multiple real-time sonographic images of | | | the abdomen were obtained utilizing a 5.0 MHz transducer. Color | | | doppler images of the abdominal aorta and IVC were obtained. Color | | | doppler and spectral waveform analysis of the main portal vein was | | | also performed. FINDINGS: Real-time sonographic interrogation of | | | the abdominal wall in the area of palpable concern shows no discrete | | | hernia during Valsalva imaging. IMPRESSION: No hernia identified. | | | REPORT SIGNED IN OTHER VENDOR SYSTEM 03/03/2019 | | | Reported by: Joseph Diaz MD Electronically signed by: Joseph | | | MD Joe Transcribed Date/Time: 03/03/2019 08:23 | | | Eyeglass Fitter: FLUENCY | | + + + + + | Procedure Note | + + | Interface, Radiology Results - 03/03/2019 8:27 AM PDT [address] | | [address] [place] [address] | | Name: CHUCK SANTOS Phys: TELLOILIANA M : 1975 Sex: M | | CSN: [id number] MR# [id number] Exam Date: 03/03/2019 EXAM:US ABDOMEN LIMITED | | CLINICAL HISTORY:Questionable abdominal wall hernia COMPARISON:CT scan from April 2018 | | TECHNIQUE:Multiple real-time sonographic images of the abdomen were obtainedutilizing a | | 5.0 MHz transducer. Color doppler images of theabdominal aorta and IVC were obtained. | | Color doppler and spectralwaveform analysis of the main portal vein was also performed. | | FINDINGS:Real-time sonographic interrogation of the abdominal wall in the areaof | | palpable concern shows no discrete hernia during Valsalva imaging. IMPRESSION:No hernia | | identified. REPORT SIGNED IN OTHER VENDOR SYSTEM 03/03/2019 Reported by: Joseph | | MD Joe Electronically signed by: Joseph Diaz MD Transcribed Date/Time: 03/03/2019 | | 08:23Transcriptionist: FLUENCY | |US ABDOMEN LIMITED | | | |CLINICAL HISTORY: | |Questionable abdominal wall hernia | | | |COMPARISON: | |CT scan from April 2018 | | | |TECHNIQUE: | |Multiple real-time sonographic images of the abdomen were obtained | |utilizing a 5.0 MHz transducer. Color doppler images of the | |abdominal aorta and IVC were obtained. Color doppler and spectral | |waveform analysis of the main portal vein was also performed. | | | |FINDINGS: | |Real-time sonographic interrogation of the abdominal wall in the area | |of palpable concern shows no discrete hernia during Valsalva imaging. | | | |IMPRESSION: | |No hernia identified. | | | | | | | | REPORT SIGNED IN OTHER VENDOR SYSTEM 03/03/2019 | |Reported by: Joseph Diaz MD | | | |Electronically signed by: Joseph Diaz MD | | | |Transcribed Date/Time: 03/03/2019 08:23 | |Eyeglass Fitter: VAL | | | | | | [...] + | Diagnosis | + + | Abdominal wall hernia - Primary Ventral hernia, unspecified, without mention of | | obstruction or gangrene | + + documented in this encounter"
--- OUTSIDE RECORDS SUMMARY | ~2020-05-06 | XMS | Encounter Summary ---
Demographics + + + | Address | [address] | | | [place] [address] | + + + | Home Phone | | + + + | Preferred Language | Unknown | + + + | Marital Status | Single | + + + | Anabaptism Affiliation | NRP | + + + | Race | White | + + + | Ethnic Group | Not or | + + + Author + + + | Author | [facility] | + + + | Organization | [facility] | + + + | Address | Unknown | + + + | Phone | Unavailable | + + + Support + + + + + | Name | Relationship | Address | Phone | + + + + + | Neda Castañeda | ECON | [place] | | | | | [address] | | + + + + + Care Team Providers + +------+ + | Care Seat Joiner Name | Role | Phone | + +------+ + | Herbert Marie MD,MPH | PCP | Unavailable | + +------+ + Reason for Referral Consultation (Routine) +--------+--------+ + + + + | Status | Reason | Specialty | Diagnoses / | Referred By | Referred To | | | | | Procedures | Contact | Contact | +--------+--------+ + + + + | Closed | | Neurology | Diagnoses | Frank, | Marci | | | | | Carpjessica | Herbert Pastor, | Steven | | | | | tunnel | ,MPH [address] | Neurology | | | | | syndrome of | [address] | [address] | | | | | left wrist | [place] | [address] | | | | | Procedures | [address] | [place] [address] | | | | | CONSULT TO | [place], [place] | [address] Phone: | | | | | NEUROLOGY | [address] | [phone] | | | | | | | Fax: | | | | | | | [phone] | +--------+--------+ + + + + Reason for Visit + + + | Reason | Comments | + + + | Lab Results | F/U | + + + Encounter Details +--------+---------+ + + + | Date | Type | Department | Care Team | Description | +--------+---------+ + + + | 09/12/ | Office | [facility] | Herbert Marie, | Elevated BP (Primary | | 2016 | Visit | Medicine [address] | ,MPH | Dx); Prediabetes; | | | | [address] [place], | | Mixed | | | | [place] [address] | | hyperlipidemia; | | | | [phone] | | Elevated ALT | | | | | | measurement; BMI | | | | | | 31.0-31.9,adult; | | | | | | Carpal tunnel | | | | | | syndrome of left | | | | | | wrist | +--------+---------+ + + + Social History [...] + + + | Blood Pressure | 122/74 | 09/12/2016 9:49 AM | | | | | PST | | + + + + + | Pulse | 77 | 09/12/2016 9:49 AM | | | | | PST | | + + + + + | Temperature | - | - | | + + + + + | Respiratory Rate | - | - | | + + + + + | Oxygen Saturation | 97% | 09/12/2016 9:49 AM | | | | | PST | | + + + + + | Inhaled Oxygen | - | - | | | Concentration | | | | + + + + + | Weight | 89.8 kg (198 lb) | 09/12/2016 9:49 AM | | | | | PST | | + + + + + | Height | 170.2 cm (5' 7") | 09/12/2016 9:49 AM | | | | | PST | | + + + + + | Body Mass Index | 31.01 | 09/12/2016 9:49 AM | | | | | PST | | + + + + + documented in this encounter Patient Instructions Patient Instructions Herbert Marie MD,MPH - 09/12/2016 10:00 AM PSTBlood pressure normal since kidney stone pain resolved Congratulations on diet change and weight loss. Weight Your goal is 18-185 pounds Losing 5-10% weight will improve your health Research shows that people who choose a diet and stick with it can lose weight DASH diet is good diet with lots of research showing its benefits on heart disease risks Current recommendation for exercise is 150 minutes a week Check tests to see if changes have improved the results Referral done for testing to confirm suspicion of carpal tunnel syndrome See handouts on condition and release surgery Thanks. Herbert Marie MD, MPH 09/12/16 10:38 AM documented in this encounter Progress Notes Herbert Marie MD,MPH - 09/12/2016 10:00 AM PST Chief Complaint Patient presents with Lab Results F/U Subjective PREDIABETES = = = = = = = = = = Severity/control: A1c - Lab Results Component Value Date A1C 5.6 09/12/2016 Patient's goal met? ===== A1c - <7 - Yes ADA 09 - goal <7 - check [...] = BP Readings from Last 3 Encounters: 09/12/16 122/74 07/20/16 (!) 121/92 06/21/16 120/82 Patient's goal met? ===== BP - <140/90 - Yes HYPERCHOLESTEROLEMIA= = = = = = = = = = Lab Results Component Value Date CHOL 272 09/12/2016 LDL 200 09/12/2016 HDL 34 09/12/2016 TRI 190 09/12/2016 Patient's goal met? ===== LDL < 130 mg/dl (CHD or "CHD risk equivalent" is present) - No TG <150 - No HDL >40 - No ATP IV - drug treatment Clinical ASCVD [...] uction if 10-yr ASCVD risk >7.5% Adherence PREDM med(s) taken regularly Not prescribed HTN meds taken regularly Not prescribed HLD med taken regularly Not prescribed ROS/Target organ Lab Results Component Value Date CR 1.3 09/12/2016 CR 1.2 06/21/2016 CR 1.4 (H) 05/25/2016 Other CAD Risk Factors Smoking History Smoking Status Former Smoker Smokeless Tobacco Never Used Weight Body mass index is 31.01 kg/(m^2). Wt Readings from Last 3 Encounters: 09/12/16 89.8 kg (198 lb) 07/20/16 90.7 kg (200 lb) 06/21/16 89.8 kg (198 lb) Body mass index is 31.01 kg/(m^2). Goal 180-185# He has cut out soda He does not eat sweets He has been doing [employer] games for exercise Immunizations Immunization History Administered Date(s) Administered Flu [...] flank pain, frequency, hematuria and urgency. Musculoskeletal: Positive for back pain, joint pain, myalgias and neck pain. Negative for f alls. Skin: Negative for itching and rash. Neurological: Positive for tingling. Negative for dizziness, tremors, sensory change, speec h change, focal weakness, seizures, loss of consciousness, weakness and headaches. Endo/Heme/Allergies: Negative for environmental allergies and polydipsia. Does not bruise/b leed easily. Psychiatric/Behavioral: Negative for depression, hallucinations, memory loss, substance abu se and suicidal ideas. The patient is not nervous/anxious and does not have insomnia. 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 male [...] with normal posture and gait, normal strength Pulses: 2 and symmetric Ext: no pedal edema, no clubbing or cyanosis Neuro: Grossly normal, non-focal Assessment Mendez was seen today for lab results. Diagnoses and all orders for this visit: Elevated BP Comments: was due to pain from renal stone - BP normal since pain resolved Prediabetes Comments: A1c was 5.8 - has cut out soda and lost 6 pounds Orders: - HEMOGLOBIN A1C, BLOOD; Future Mixed hyperlipidemia Comments: TG 205 and LDL 166 last lab before lifestyle change Orders: - LIPID SET (TRIG, T CHOL, HDL, CALC LDL); Future Elevated ALT measurement - COMPLETE METABOLIC SET (NA,K,CL,CO2,BUN,CREAT,GLUC,CA,AST,ALT,BILI TOTAL,ALK PHOS,ALB ,PROT TOTAL); Future BMI 31.0-31.9,adult Comments: goal 180-185 pounds - has cut out sodas Carpal tunnel syndrome of left wrist Comments: left hand constantly numb - 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 Patient Instructions Blood pressure normal since kidney stone pain resolved Congratulations on diet change and weight loss. Weight Your goal is 18-185 pounds Losing 5-10% weight will improve your health Research shows that people who choose a diet and stick with it can lose weight DASH diet is good diet with lots of research showing its benefits on heart disease risks Current recommendation for exercise is 150 minutes a week Check tests to see if changes have improved the results Referral done for testing to confirm suspicion of carpal tunnel syndrome See handouts on condition and release surgery Thanks. Herbert Marie MD, MPH 09/12/16 10:38 AM documented in this encounter Plan of Treatment Not on filedocumented as of this encounter Results LIPID SET (TRIG, T CHOL, HDL, CALC LDL) (09/12/2016 10:49 AM PST) + + + + + + | Component | Value | Ref Range | Performed | Pathologist | | | | | At | Signature | + + + + + + | CHOLESTEROL | 272 (H) | 101 - 199 mg/dL | [facility] | | | (LAB) | | | A MEDICAL | | | | | | CENTER | | + + + + + + | TRIGLYCERID | 190 (H) | 45 - 150 mg/dL | [facility] | | | ES | | | A MEDICAL | | | | | | CENTER | | + + + + + + | HDL | 34 (L) | >40 mg/dL | [facility] | | | CHOLESTEROL | | | A MEDICAL | | | | | | CENTER | | + + + + + + | LDL | 200 (H) | <100 mg/dL | [facility] | | | CHOLESTEROL | | | A MEDICAL | | | , | | | CENTER | | | CALCULATED | | | | | + + + + + + | VLDL | 38 (H) | 9 - 30 mg/dL | [facility] | | | CHOLESTEROL | | | A MEDICAL | | | , | | | CENTER | | | CALCULATED | | | | | + + + + + + | NON-HDL | 238 (H) | <130 mg/dL | [facility] | [...] + + + | FASTING 8 | YesComment: 15.5 hr pc | | [facility] | | | HOURS [place] | | [...] a level 30 mg/dL higher than | [facility] | | that for LDL cholesterol. Cardiac [...] | [facility] | [address] | [place], [place] | [phone] | | [facility] | [facility] | [address] | | + + + + + COMPLETE METABOLIC SET (NA,K,CL,CO2,BUN,CREAT,GLUC,CA,AST,ALT,BILI TOTAL,ALK PHOS,ALB,PROT TOTAL) (09/12/2016 10:49 AM PST) + + + + + + | Component | Value | Ref Range | Performed | Pathologist | | | | | At | Signature | + + + + + + | GLUCOSE, | 101 | 70 - 105 mg/dL | [facility] | | | PLASMA | | | A MEDICAL | | | (LAB) | | | CENTER | | + + + + + + | BUN, PLASMA | 13 | 6 - 26 mg/dL | [facility] | | | (LAB) | | | A MEDICAL | | | | | | CENTER | | + + + + + + | CREATININE, | 1.3 | 0.9 - 1.3 mg/dL | [facility] | | | PLASMA | | [...] + + + + | POTASSIUM, | 4.1 | 3.4 - 5.3 | [facility] | | | PLASMA | | mmol/L | A MEDICAL | | | (LAB) | | | CENTER | | + + + + + + | CHLORIDE, | 101 | 96 - 106 mmol/L | [facility] | | | PLASMA | | | A MEDICAL | | | (LAB) | | | CENTER | | + + + + + + | TOTAL CO2, | 29 | 18 - 30 mmol/L | [facility] | | | PLASMA | | | A MEDICAL | | | (LAB) | | | CENTER | | + + + + + + | CALCIUM, | 9.9 | 8.5 - 10.8 | [facility] | [...] + + + + | TOTAL | 7.2 | 5.8 - 8.5 g/dL | [facility] [...] + + + | ALK PHOS | 57 | 32 - 180 U/L | [facility] | | | | | | A MEDICAL | | | | | | CENTER | | + + + + + + | AST(SGOT) | 18 | 10 - 41 U/L | [facility] | | | | | | A MEDICAL | | | | | | CENTER | | + + + + + + | ALT (SGPT) | 48 | 7 - 51 U/L | [facility] | | | | | | A MEDICAL | | | | | | CENTER | | + + + + + + | EGFR | >60 | >60 mL/min | [facility] | | | - | | | A MEDICAL | | | L[facility]UAN[facility] | | | CENTER | | + + + + + + | EGFR NON | >60 | >60 mL/min | [facility] | | | -ALIX | | | A MEDICAL | | | RICAN | | | CENTER | | + + + + + + | ANION GAP | 12 | 12 - 20 mmol/L | [facility] [...] + + + | FASTING 8 | YesComment: 15.5 hr pc | | [facility] | | [...] MDRD equation recommended by the | [facility] | | National Kidney Disease Education Program. Estimated GFR | [facility] | | Interpretive Information: <60 mL/min/1.73 [...] | + + + + + | [facility] | And | [place], [place] | [phone] | | MEDICAL CENTER | [address] | [address] | | + + + + + HEMOGLOBIN A1C, BLOOD (09/12/2016 10:49 AM PST) + +-------+ + + + | Component | Value | Ref Range | Performed | Pathologist | | | | | At | Signature | + +-------+ + + + | HEMOGLOBIN | 5.6 | % | [facility] | | | A1C | | | A MEDICAL | | | | | | CENTER | | + +-------+ + + + | ESTIMATED | 114 | mg/dL | [facility] | | | [place] | | [...] Diabetic Ranges per DCCT & ADA: | [facility] | | Normal Range: <6% | MEDICAL CENTER | | Good Control: <7% | | | Additional action suggested: >8% Non-Diabetic | | | Ranges: 4-6% Shipping Assistant's Glycohemoglobin | | | Diabetic Ranges: Normal Range: | | | 4.0-6.0% Good Control: | | | 6.0-8.0% Poor Control: | | | >8.0% | | + + + + + + + + | Performing | Address | City/State/Zipcode | Phone Number | | Organization | | | | + + + + + | [facility] | And | [place] | [phone] | | MEDICAL CENTER | [facility] | [address] | | + + + + + documented in this encounter Visit Diagnoses + + | Diagnosis | + + | Elevated BP - Primary Elevated blood pressure reading without diagnosis of | | hypertension | + + | Prediabetes Other abnormal glucose | + + | Mixed hyperlipidemia | + + | Elevated ALT measurement Nonspecific elevation of levels of transaminase or lactic | | acid dehydrogenase (LDH) | + + | BMI 31.0-31.9,adult Body Mass Index 31.0-31.9, adult | + + | Carpal tunnel syndrome of left wrist Carpal tunnel syndrome | + + documented in this encounter
--- OUTSIDE RECORDS SUMMARY | ~2020-05-06 | XMS | Encounter Summary ---
Demographics + + + | Address | [address] | | | [place] [address] | + + + | Home Phone [...] Author + + + | Author | [facility] | + + + | Organization | [facility] | + + + | Address | Unknown | + + + | Phone | Unavailable | + + + Support + + + + + | Name | Relationship | Address | Phone | + + + + + | Neda Castañeda | ECON | [place] | | | | | [address] | | + + + + + Care Team Providers + +------+ + | Care College Athlete Name | Role | Phone | + +------+ + | Herbert Marie MD,MPH | PCP | Unavailable | + +------+ + Reason for Visit + + + | Reason | Comments | + + + | Immunization | Varicella | + + + Encounter Details +--------+ + + + + | Date | Type | Department | Care Team | Description | +--------+ + + + + | 07/05/ | Telephone | [facility] | Herbert Marie, | Immunization | | 2016 | | Medicine [address] | [facility] | (Varicella) | | | | [address] [place], | | | | | | [place] [address] | | | | | | [phone] | | | +--------+ + + + [...] + | Diagnosis | + + | Need for varicella vaccine - Primary Need for prophylactic vaccination and | | inoculation against varicella | + + documented in this encounter"
--- OUTSIDE RECORDS SUMMARY | ~2020-05-06 | XMS | Encounter Summary ---
Demographics + + + | Address | [address] | | | [place] [address] | + + + | Home Phone | | + + + | Preferred Language | Unknown | + + + | Marital Status | Single | + + + | Jain Affiliation | NRP | + + + | Race | White | + + + | Ethnic Group | Not or | + + + Author + + + | Author | [facility] | + + + | Organization | [facility] | + + + | Address | Unknown | + + + | Phone | Unavailable | + + + Support + + + + + | Name | Relationship | Address | Phone | + + + + + | Neda Castañeda | ECON | [place] | | | | | [address] | | + + + + + Care Team Providers + +------+ + | Care Order Entry Representative Name | Role | Phone | + +------+ + | Nathalie Castillo | PCP | | + +------+ + Encounter Details +--------+ + + + + | Date | Type | Department | Care Team | Description | +--------+ + + + + | 10/11/ | Results | NON-[facility] | Nathalie Castillo, | | | 2014 | Only | Department | [employer] [address] | | | | | | [address] | | | | | | [place] | | | | | | [address] | | | | | | [phone] | | | | | | | [...] + + | CBC W/DIFF, REFLEX | Routin | 10/11/2014 | | Results for this | | | e | 11:04 AM | | procedure are in the | | | | PST | | results section. | + +--------+ + + + | COMPLETE METABOLIC | Routin | 10/11/2014 | | Results for this | | SET | e | 11:04 AM | | procedure are in the | | (NA,K,CL,CO2,BUN,CRE | | PST | | results section. | | AT,GLUC,CA,AST,ALT,B | | | | | | FRED TOTAL,ALK | | | | | | PHOS,ALB,PROT TOTAL) | | | | | + +--------+ + + + documented in this encounter Results CBC W/DIFF, REFLEX (10/11/2014 11:04 AM PST) + + + + + + | Component | Value | Ref Range | Performed | Pathologist | | | | | At | Signature | + + + + + + | WHITE BLOOD | 5.4 | 3.2 - 11.0 X10 | [facility] | | | CELL COUNT | | 3/uL | A MEDICAL | | | | | | CENTER | | + + + + + + | HEMOGLOBIN | 15.4 | 12.0 - 18.0 | [facility] | | | | | g/dL | A MEDICAL | | | | | | CENTER | | + + + + + + | RED BLOOD | 5.34 | 3.5 - 6.0 X10 | [facility] | | | CELL COUNT | | 6/uL | A MEDICAL | | | | | | CENTER | | + + + + + + | HEMATOCRIT | 46.6 | 37.0 - 52.0 % | [facility] | | | | | | A MEDICAL | | | | | | CENTER | | + + + + + + | MCV | 87.3 | 82 - 100 fL | [facility] | | | | | | A MEDICAL | | | | | | CENTER | | + + + + + + | MCH | 28.8 | 28.0 - 34.7 pg | [facility] | | | | | | A MEDICAL | | | | | | CENTER | | + + + + + + | MCHC | 33.0 | 32 - 36 g/dL | [facility] | | | | | | A MEDICAL | | | | | | CENTER | | + + + + + + | RDW | 13.7 | 12 - 16 % | [facility] | | | | | | A MEDICAL | | | | | | CENTER | | + + + + + + | PLATELET | 185 | 140 - 350 X10 3 | [facility] | | | COUNT | | | A MEDICAL | | | | | | CENTER | | + + + + + + | MPV | 8.3 | 7.0 - 12.0 fL | [facility] | | | | | | A MEDICAL | | | | | | CENTER | | + + + + + + | NEUTROPHIL | 41.7 | 40 - 80 % | [facility] | | | % | | | A MEDICAL | | | | | | CENTER | | + + + + + + | LYMPHOCYTE | 48.5 (H) | 15 - 45 % | [facility] | | | % | | | A MEDICAL | | | | | | CENTER | | + + + + + + | EOS % | 3.5 | 0 - 6.0 % | [facility] | | | | | | A MEDICAL | | | | | | CENTER | | + + + + + + | BASO % | 0.6 | 0 - 2.0 % | [facility] | | | | | | A MEDICAL | | | | | | CENTER | | + + + + + + | MONOCYTE % | 5.7 | 4.0 - 12.0 % | [facility] | | | | | | A MEDICAL | | | | | | CENTER | | + + + + + + + + | Specimen | + + | | + + + + + + + | Performing | Address | City/State/Zipcode | Phone Number | | Organization | | | | + + + + + | [facility] | And | [place], [place] | [phone] | | MEDICAL CENTER | [address] | [address] | | + + + + + COMPLETE METABOLIC SET (NA,K,CL,CO2,BUN,CREAT,GLUC,CA,AST,ALT,BILI TOTAL,ALK PHOS,ALB,PROT TOTAL) (10/11/2014 11:04 AM PST) + + + + + + | Component | Value | Ref Range | Performed | Pathologist | | | | | At | Signature | + + + + + + | SODIUM, | 141 | 137 - 146 MEQ/L | [facility] | | | PLASMA | | | A MEDICAL | | | (LAB) | | | CENTER | | + + + + + + | POTASSIUM, | 3.7 | 3.5 - 5.2 MEQ/L | [facility] | | | PLASMA | | | A MEDICAL | | | (LAB) | | | CENTER | | + + + + + + | CO2 | 28 | 22 - 28 MEQ/L | [facility] | | | | | | A MEDICAL | | | | | | CENTER | | + + + + + + | CHLORIDE, | 105 | 98 - 106 MEQ/L | [facility] | | | PLASMA | | | A MEDICAL | | | (LAB) | | | CENTER | | + + + + + + | ANION GAP | 11.7 | 8 - 16 MEQ/L | [facility] | | | | | | A MEDICAL | | | | | | CENTER | | + + + + + + | GLUCOSE, | 107 (H) | 70 - 105 MG/DL | [facility] | | | PLASMA | | | A MEDICAL | | | (LAB) | | | CENTER | | + + + + + + | BUN, PLASMA | 13 | 8 - 30 MG/DL | [facility] | | | (LAB) | | | A MEDICAL | | | | | | CENTER | | + + + + + + | CREATININE | 1.20 | 0.9 - 1.3 MG/DL | [facility] | | | PLASMA | | | A MEDICAL | | | (LAB) | | | CENTER | | + + + + + + | BUN/CREATIN | 10 | 6 - 20 RATIO | [facility] | | | INE RATIO | | | A MEDICAL | | | | | | CENTER | | + + + + + + | CALCIUM, | 9.4 | 8.5 - 10.8 | [facility] | | | PLASMA | | MG/DL | A MEDICAL | | | (LAB) | | | CENTER | | + + + + + + | AST(SGOT) | 39 | 10 - 41 U/L | [facility] | | | | | | A MEDICAL | | | | | | CENTER | | + + + + + + | ALT (SGPT) | 104 (H) | 7 - 51 U/L | [facility] | | | | | | A MEDICAL | | | | | | CENTER | | + + + + + + | ALK PHOS | 64 | 34 - 158 U/L | [facility] | | | | | | A MEDICAL | | | | | | CENTER | | + + + + + + | TOTAL | 7.4 | 6.7 - 8.5 G/DL | [facility] | | | PROTEIN, | | | A MEDICAL | | | PLASMA | | | CENTER | | | (LAB) | | | | | + + + + + + | ALBUMIN, | 4.2 | 3.5 - 5.0 G/DL | [facility] | | | PLASMA | | | A MEDICAL | | | (LAB) | | | CENTER | | + + + + + + | BILIRUBIN | 0.5 | 0.2 - 1.6 MG/DL | [facility] | | | TOTAL | | | A MEDICAL | | | | | | CENTER | | + + + + + + | TRIGLYCERID | 422 (H) | 45 - 150 MG/DL | [facility] | | | ES | | | A MEDICAL | | | | | | CENTER | | + + + + + + | CHOLESTEROL | 285 (H) | 101 - 199 MG/DL | [facility] | | | (LAB) | | | A MEDICAL | | | | | | CENTER | | + + + + + + | HDL | 35 | 30 - 60 MG/DL | [facility] | | | CHOLESTEROL | | | A MEDICAL | | | | | | CENTER | | + + + + + + | LDL CHOLEST | [place] | 0 - 129 MG/DL | [facility] | | | | | | A MEDICAL | | | | | | CENTER | | + + + + + + | NON-HDL | 250 | | [facility] | | | CHOLESTEROL | | | A MEDICAL | | | | | | CENTER | | + + + + + + | LDL DIRECT | 159 (H) | 0 - 129 MG/DL | [facility] | | | | | | A MEDICAL | | | | | | CENTER | | + + + + + + | VLDL | 84 (H) | 9 - 30 MG/DL | [facility] | | | CHOLESTEROL | | | A MEDICAL | | | | | | CENTER | | + + + + + + | CARDIAC | 8.1 | RATIO | [facility] | | | RISK RATIO | | | A MEDICAL | | | | | | CENTER | | + + + + + + | ESTIMATED | >60.0 | >60 | [facility] | | | GFR | | | A MEDICAL | | | | | | CENTER | | + + + + + + | FASTING? | 12 HR PC | HR | [facility] | | | | | [...] + + | [facility] | [address] | [place] | [phone] | | [facility] | [place] | [address] | | + + + + + documented in this encounter Visit Diagnoses Not on filedocumented in this encounter"
--- OUTSIDE RECORDS SUMMARY | ~2020-05-06 | XMS | Encounter Summary ---
Demographics + + + | Address | [address] | | | [place] [address] | + + + | Home Phone | | + + + | Preferred Language | Unknown | + + + | Marital Status | Single | + + + | Adventism Affiliation | NRP | + + + | Race | White | + + + | Ethnic Group | Not or | + + + Author + + + | Author | [facility] | + + + | Organization | [facility] | + + + | Address | Unknown | + + + | Phone | Unavailable | + + + Support + + + + + | Name | Relationship | Address | Phone | + + + + + | Neda Castañeda | ECON | [place] | | | | | [address] | | + + + + + Care Team Providers + +------+ + | Care Buyer Agent Name | Role | Phone | + +------+ + | Elena Violeta DO | PCP | | + +------+ + Reason for Visit + + + | Reason | Comments | + + + | New Patient Visit | | + + + Intake Referral (Routine) +--------+--------+ + + + + | Status | Reason | Specialty | Diagnoses / | Referred By | Referred To | | | | | Procedures | Contact | Contact | +--------+--------+ + + + + | Closed | | Endocrinology | Diagnoses | [place], | End General | | | | Diabetes & | Testicular | DO Violeta | [address] | | | | Metabolism | hypofunction | [address] | | | | | Procedures | [address] | [address] | | | | | | [place], | [facility] | | | | | [address] | [place] [address] | Pavilion | | | | | | Phone: | Physician's | | | | | | [phone] | Pavilion | | | | | | Fax: | [place], [place] | | | | | | [phone] | [address] | | | | | | | Phone: | | | | | | | [phone] | | | | | | | Fax: | | | | | | | [phone] | +--------+--------+ + + + + Encounter Details +--------+---------+ + + + | Date | Type | Department | Care Team | Description | +--------+---------+ + + + | 10/16/ | Office | [facility] | Lisette Carey MD | Hypogonadism in male | | 2019 | Visit | [facility] | [address] | (Primary Dx) | | | | [facility] | [address] [facility] [place], | | | | | [address] | [place] [address] | | | | | [address] | [phone] | | | | | [facility] | | | | | | Physician[facility] | | | | | | [facility] [place], | | | | | | [place] [address] | | | | | | [phone] | | | +--------+---------+ + + + [...] + + + | Blood Pressure | 90/60 | 10/16/2018 12:50 PM | | | | | PST | | + + + + + | Pulse | 100 | 10/16/2018 12:50 PM | | | | | PST [...] + + + + | Weight | 81.8 kg (180 lb 6.4 | 10/16/2018 12:50 PM | | | | oz) | PST | | + + + + + | Height | 162.6 cm (5' 4") | 10/16/2018 12:50 PM | | | | | PST | | + + + + + | Body Mass Index | 30.97 | 10/16/2018 12:50 PM | | | | | PST | | + + + + + documented in this encounter Patient Instructions Patient Instructions Lisette Carey Md - 10/16/2018 12:55 PM PSTYou were referred for low te stosterone levels. The most likely cause of the low testosterone was the recent use of opioi ds. Low testosterone is not a cause of testicular pain. If this continues to happen, please sabino k with your PCP about further evaluation, potentially with a urologist. Electronically maricarmen d by Lisette Carey Md at 10/16/2018 1:32 PM PST documented in this encounter Progress Notes Lisette Carey Md - 10/16/2018 12:55 PM PSTFormatting of this note might be different from t macy original. Endocrinology Clinic Initial Consult Note Reason for consult: testicular hypofunction Referred by: Violeta Chu DO [facility] [place] [address] Brief HPI: Mr. Mendez Castañeda is a generally healthy 43yoM who has been referred for low testosterone. He had requested the testing because of a significant family history of trauma and/or low t estosterone levels. He also had approximately 1 month's duration of vice-like pain to his te sticles and thought that low testosterone could be the cause of his pain. His pain is sharp, intermittent, and he has been having fatigue from the pain. Denied changes in libido, erect ions or ejaculations. Denied changes to his testicles (ie became harder or larger), denied s welling of scrotal sac, caldor, rubor. He has recently diagnosed with thrombosed hemorrhoids and had been prescribed opioids for p ain control (Percocets). He had testosterone levels checked after he started taking Percocet s. Has discontinued the Percocets due to significant constipation. Had vasectomy in 2010 Has 1 biological child Normal development, no testicular trauma as a child/during teenage years Regarding his family history, his father was diagnosed with colon cancer and had low testos terone levels at that time. His uncle had testicular cancer and also low testosterone. His b rother had testicular trauma from a motorcycle accident. He denies taking bzzw-wqa-ubseffq supplements, or any naturopathic medications. ROS: As per HPI, also reports no changes to weight, has had nausea with the testicular pain. He snores, but his denies apnea. Otherwise, 13-point ROS was negative. Past Medical History Patient Active Problem List Diagnosis Date Noted History of adenomatous polyp of colon 10/03/2017 Carpal tunnel syndrome of left wrist 09/12/2016 Family history of pancreatic cancer 06/21/2016 Overview Note: brother and sister - periodic CA19-9, CA 15-3, UA and a chest xray Family history of colon cancer 06/21/2016 Overview Note: father BMI 31.0-31.9,adult 05/30/2016 Overview Note: Goal 180-185 Mixed hyperlipidemia 05/30/2016 Overview Note: The 10-year ASCVD risk score (Eliud DAY Jr., et al., 2013) is: 1.9% LDL > 190 - notified of statin recommendation Prediabetes 05/30/2016 Recurrent kidney stones 05/26/2016 Left-sided low back pain with left-sided sciatica 04/19/2016 Overview Note: Lumbar Spine MRI 6/16/18: There is no central or left foraminal stenosis. At L5-S1 there is a small central and right paracentral disc protrusion and T2 hyperintensity in the protruding annulus due to fissuring. Central canal and neural foramina are patent. IMPRESSION: Slight L4-5 disc bulge. Small central and right paracentral L5-S1 disc protrusion. Recommend PT for strengthening. Left thigh pain 04/19/2016 Cervical pain 09/01/2013 Outpatient Medications Current Medication List Name Sig ATORVASTATIN 40 MG TABLET Take 1 tablet by mouth once daily. Indications: hypercholesterole kristel GABAPENTIN 300 MG CAPSULE Take 2 capsules by mouth three times daily. OMEPRAZOLE 40 MG CAPSULE,DELAYED RELEASE Take 40 mg by mouth once daily. TIZANIDINE 4 MG TABLET Take 1 tablet by mouth every six hours as needed. Max: 36 mg / day. Allergies Allergen Reactions Pineapple Anaphylaxis Bromelains Throat Swelling / Closing Ibuprofen Unknown Naproxen Bleeding Penicillins Throat Swelling / Closing Family History Problem Relation GI Brother GERD Cancer Brother Pancreatic Other Neurological Father Alzheimer's Disease Colon Cancer Father Cancer Father Obesity Mother Cancer Mother Bladder GI Sister GERD Cancer Sister Pancreatic Social History Social History Marital status: Spouse name: N/A Number of children: N/A Years of education: N/A Social History Main Topics Smoking status: Former Smoker Quit date: 03/08/2015 Smokeless tobacco: Never Used Alcohol use No Drug use: No Comment: on occasion to help with pain in back Sexual activity: Not on file Comment: vasectomy Other Topics Concern Not on file Social History Narrative No narrative on file O: Filed Vitals: 10/16/2018 12:50 PM Height: 1.626 m (5' 4") Weight: 81.8 kg (180 lb 6.4 oz) BP: 90/60 Pulse: 100 PainSc: 07 - Severe to Very Severe BMI: 30.97 kg/(m^2) Physical Exam: General Appearance: Well developed, Well nourished, No apparent distress pleasant conversa nt HEENT: EOMI, MMM, no exophthalmos, no chemosis, sclera anicteric Neck:supple, no thyromegaly, no asymmetry Cardiovascular: regular rate and rhythm, no murmur, no rubs or gallops, +S1 &S2 Respiratory:Normal effort, in no respiratory distress no audible wheeze cta B/L, no w/r/r Abdominal: soft, NT, normal BS, no organomegaly, no violaceous stripes Extremities: peripheral pulses intact, no edema : normal descended testes, normal testicular size (20mL volume bilaterally), testes soft to palpation, no tenderness to palpation of epididymis, no swelling/redness/tenderness of sc rotal sac, normal penile appearance and structure Skin: no jaundice, no rashes on exposed skin Neurologic:No facial droop, able to move all 4 extremities spontaneously against gravity, A lert and oriented x 3, no focal deficits grossly, no tremor Psychiatric: affect, mood and behavior normal Labs Lab Results Component Value Date A1C 5.7 03/12/2018 Imaging: None available in Care Everywhere, but Mr. Castañeda reports that his testicular ultrasound was normal. Assessment: Mendez Castañeda is a 43 y.o. male with recent opioid usage for thrombosed hemorrhoids fo r whom we are consulted for hypogonadism. His total testosterone levels are documented to be low on two separate occasions, but reass uring free testosterone levels were within normal range. His low total testosterone levels a re likely due to recent opioid usage. Endocrine Society guidelines recommend that testostero ne levels should not be checked in the setting of recent opioid usage as opioids can suppres s the ssqnkwwtxcpv-oggmamhul-sjkoboh axis. It can take up to 2 years for gonadal function to return after long-term opioid usage. Earliest that testosterone can be checked would be 2 months after short-term opioid usage has ended. Mr. Castañeda agrees to recheck his testosterone panel in mid-late November 2018; a lab slip has been provided to him. In talking with the patient, his main concern has been the intermittent vice-like pain to h is testicles. It is unclear whether he is getting referred pain via the S1 nerves from his t hromobosed hemorrhoids. If his pain persists, I would recommend considering a urology consul t for further evaluation (?structural abnormalities not seen on testicular ultrasound). Recommendations: Orders Placed This Encounter TESTOSTERONE, ADULT MALE:FREE, TOTAL, SHBG mid-to-late November 2018 RTC prn and depending on labs Lisette Carey, [id number] Endocrinology Fellow This patient's assessment and plan was discussed with consult attending Dr. Leonela Bush who agrees with above assessment and recommendations. Associated attestation - Leonela Bush MD - 10/16/2018 2:48 PM PSTEndocrinology Attendi Teaching Services Documentation I saw and evaluated the patient in conjunction with Endocrinology Fellow, Dr. Lisette Carey. Please see their note for the full details of the visit. I agree with history, exam, asse ssment and management plan as detailed there. Briefly, Mr. Castañeda presents with a concern ab out low testosterone. He has a history of sharp, intermittent testicular pain evaluated wit h a testicular ultrasound which was nonconcerning and a testosterone level that was mildly l ow but in the setting of narcotics for thrombosed hemorrhoids which can physiologically lowe r testosterone levels. We recommended a repeat early AM testosterone level when the pain fr om his hemorrhoids has resolved and he is off narcotic pain meds. Our suspicion of hypogona dism is very low. We also recommended referral to Urology if he has continued testicular pa in (although I wonder if some of that was referred pain from his hemorrhoids.) He was agree able with this plan. LEONELA BUSH MD, [facility] Professor, Endocrinology documented in this encounter Plan of Treatment Not on filedocumented as of this encounter Visit Diagnoses + + | Diagnosis | + + | Hypogonadism in male - Primary | + + documented in this encounter
--- OUTSIDE RECORDS SUMMARY | ~2020-05-06 | XMS | Encounter Summary ---
Demographics + + + | Address | [address] | | | [place] [address] | + + + | Home Phone | | + + + | Preferred Language | Unknown | + + + | Marital Status | Single | + + + | Episcopalian Affiliation | NRP | + + + [...] [place] | | | | | [address] | | + + + + + Care Team Providers + +------+ + | Care Youth Care Worker Name | Role | Phone | + +------+ + | Violeta Parker DO | PCP | | + +------+ + Encounter Details +--------+--------+ + + + | Date | Type | Department | Care Team | Description | +--------+--------+ + + + | 03/03/ | Travel | | | | | [...]
--- OUTSIDE RECORDS SUMMARY | ~2020-05-06 | XMS | Encounter Summary ---
Demographics + + + | Address | [address] | | | [place] [address] | + + + | Home Phone | | + + + | Preferred Language | Unknown | + + + | Marital Status | Single | + + + | Buddhist Affiliation | NRP | + + + | Race | White | + + + | Ethnic Group | Not or | + + + Author + + + | Author | [facility] | + + + | Organization | [facility] | + + + | Address | Unknown | + + + | Phone | Unavailable | + + + Support + + + + + | Name | Relationship | Address | Phone | + + + + + | Neda Castañeda | ECON | [place] | | | | | [address] | | + + + + + Care Team Providers + +------+ + | Care International Marketing Specialist Name | Role | Phone | + +------+ + | Herbert Marie MD,MPH | PCP | Unavailable | + +------+ + Reason for Visit + + + | Reason | Comments | + + + | Varicella virus | | | vaccine | | + + + Encounter Details +--------+ + + + + | Date | Type | Department | Care Team | Description | +--------+ + + + + | 08/02/ | Clinical | [facility] | | Varicella virus | | 2016 | Support | Medicine [address] | | vaccine | | | Staff | [address] [place], | | | | | | [place] [address] | | | | | | [phone] | | | +--------+ + + + [...] + + documented as of this encounter Progress Rebeca Lin MA - 08/02/2016 9:02 AM PDTPt in clinic today to receive his second varice lla vaccine. It has been 4 weeks since his first vaccine was administered. Pt tolerated well . LALA Franco documente d in this encounter Plan of Treatment Not on filedocumented as of this encounter Visit Diagnoses + + | Diagnosis | + + | Need for varicella vaccine Need for prophylactic vaccination and inoculation against | | varicella | + + documented in this encounter"
--- OUTSIDE RECORDS SUMMARY | ~2020-05-06 | XMS | Encounter Summary ---
Demographics + + + | Address | [address] | | | [place] [address] | + + + | Home Phone | | + + + | Preferred Language | Unknown | + + + | Marital Status | Single | + + + | Taoist Affiliation | NRP | + + + [...] [place] | | | | | [address] | | + + + + + Care Team Providers + +------+ + | Care Lead Front End Developer Name | Role | Phone | + [...]
--- OUTSIDE RECORDS SUMMARY | ~2020-05-06 | XMS | Encounter Summary ---
Demographics + + + | Address | [address] | | | [place] [address] | + + + | Home Phone | | + + + | Preferred Language | Unknown | + + + | Marital Status | Single | + + + | Shinto Affiliation | NRP | + + + | Race | White | + + + | Ethnic Group | Not or | + + + Author + + + | Author | [facility] | + + + | Organization | [facility] | + + + | Address | Unknown | + + + | Phone | Unavailable | + + + Support + + + + + | Name | Relationship | Address | Phone | + + + + + | Neda Castañeda | ECON | [place] | | | | | [address] | | + + + + + Care Team Providers + +------+ + | Care Machine Joint Cutter Name | Role | Phone | + +------+ + | Violeta Parker DO | PCP | | + +------+ + Encounter Details +--------+ + + + + | Date | Type | Department | Care Team | Description | +--------+ + + + + | 08/18/ | Telephone | [facility] | [place], | | | 2017 | | [facility] [address] | Angel Woodall MD [address] | | | | | [address] | | | | | [place] | [place] | | | | | [address] | [address] | | | | | [phone] | [phone] | | | | | | | [...]
--- OUTSIDE RECORDS SUMMARY | ~2020-05-06 | XMS | Encounter Summary ---
Demographics + + + | Address | [address] | | | [place] [address] | + + + | Home Phone | | + + + | Preferred Language | Unknown | + + + | Marital Status | Single | + + + | Caodaism Affiliation | NRP | + + + [...] [place] | | | | | [address] | | + + + + + Care Team Providers + +------+ + | Care Repairer Wood Furniture Name | Role | Phone | + +------+ + | Violeta Parker DO | PCP | | + +------+ + Reason for Referral Diagnostic Testing (Routine) +--------+--------+ + + + + | Status | Reason | Specialty | Diagnoses / | Referred By | Referred To | | | | | Procedures | Contact | Contact | +--------+--------+ + + + + | Closed | | Radiology | Diagnoses | | [address] | | | | | Chronic RLQ | [place]to, | Scan [address] | | | | | pain | Angel Woodall, | The | | | | | Procedures | MD [address] | [place] | | | | | CT ABDOMEN | The | [address] | | | | | AND PELVIS W | [address] | Phone: | | | | | IV CONTRAST | [address] | [phone] | | | | | [address] CT | Phone: | | | | | | ABDOMEN&PELV | [phone] | | | | | | IS | Fax: | | | | | | W/CONTRAST | [phone] | | +--------+--------+ + + + + Reason for Visit Diagnostic Testing (Routine) +--------+--------+ + + + + | Status | Reason | Specialty | Diagnoses / | Referred By | Referred To | | | | | Procedures | Contact | Contact | +--------+--------+ + + + + | Closed | | Radiology | Diagnoses | | [address] | | | | | Chronic RLQ | [place]to, | Scan [address] | | | | | pain | Angel Woodall, | The | | | | | Procedures | MD [address] | [place] | | | | | CT ABDOMEN | The | [address] | | | | | AND PELVIS W | [place] | Phone: | | | | | IV CONTRAST | [address] | [phone] | | | | | SC CT | Phone: | | | | | | ABDOMEN&PELV | [phone] | | | | | | IS | Fax: | | | | | | W/CONTRAST | [phone] | | +--------+--------+ + + + + Encounter Details +--------+ + + + + | Date | Type | Department | Care Team | Description | +--------+ + + + + | 03/11/ | Hospital | Diagnostic Imaging | [place], | | | 2019 | Encounter | [facility] | Angel Woodall MD [address] | | | | [address] | [address] | | | | | [place], [place] | [address] | | | | | [address] | [address] | | | | | [phone] | [phone] | | | | | | | [...] + + documented as of this encounter Medications at Time of Discharge [...] + + + +---------+ + + | omeprazole 40 mg | Take 40 mg by mouth | | 0 | | | | oral capsule,delayed | once daily. | | | | | | release(/ALVIN) | | | | | | + + + +---------+ + + | promethazine 25 mg | | | 0 | 03/10/20 | | | oral tablet | | | | 19 | | + + + +---------+ + + | tiZANidine 4 mg | Take 1 tablet by | 60 | 2 | 06/17/20 | | | oral tablet | mouth every six | tablet | | 18 | | | | hours as needed. | | | | | | | Max: 36 mg / day. | | | | | + + [...] | CT ABDOMEN AND | Routin | 03/11/2019 | Chronic RLQ pain | Results for this | | PELVIS W IV CONTRAST | e | 8:59 AM | | procedure are in the | | | | PDT | | results section. | + +--------+ + + + documented in this encounter Results CT ABDOMEN AND PELVIS W IV CONTRAST (03/11/2019 8:59 AM PDT) + + | Specimen | + + | | + + + + + | Narrative | Performed At | + + + | [address] [place] [address] | [facility] | | [place] [address] | DEPARTMENT | | [phone] Name: CHUCK SANTOS Phys: | RADIOLOGY | | ANGEL ARTHUR : 1975 Sex: M | | | CSN: [id number] MR# [id number] Exam Date: | | | 03/11/2019 EXAM: CT ABDOMEN AND PELVIS WITH CONTRAST CLINICAL | | | HISTORY: Epigastric pain. Rule out hernia. COMPARISON: None | | | available. TECHNIQUE: Axial CT images of the abdomen and pelvis | | | were obtained following the uneventful administration of 100 cc of | | | Omnipaque-300 IV contrast. Coronal and sagittal multiplanar | | | reformations were generated. Dose reduction techniques, including | | | automatic exposure control (AutomA and SmartmA), organ dose | | | modulation and adaptive statistical iterative reconstruction (ASiR) | | | were utilized. FINDINGS: Abdomen CT: Limited views of the lung | | | bases are clear. No free gas below the diaphragm. Gallbladder is | | | not inflamed. Liver is non cirrhotic. Spleen, adrenal glands and | | | pancreas appear unremarkable. The left kidney shows a 5 mm upper | | | pole calyceal nonobstructing calculus and a 1 mm calyceal inferior | | | pole nonobstructing calculus as well. No kidney has hydronephrosis. | | | Right kidney has a punctate upper pole calyceal nonobstructing | | | calculus as well. Pelvis CT: Negative retroperitoneal | | | lymphadenopathy, free fluid or masses. No CT evidence to suggest a | | | hernia. There is no spigelian, inguinal or femoral hernia | | | identified. No evidence for ventral hernia. Negative pelvic | | | adenopathy, free fluid or masses. Osseous structures show negative | | | lytic, blastic or traumatic bony abnormality. IMPRESSION: 1. | | | No acute inflammatory like process identified to explain the | | | patient's discomfort. 2. No hernia. 3. Nonobstructing | | | bilateral renal calculi. REPORT SIGNED IN OTHER VENDOR | | | SYSTEM 03/11/2019 Reported by: Joseph Diaz MD | | | Electronically signed by: Joseph Diaz MD Transcribed Date/Time: | | | 03/11/2019 09:45 Chemical Detection Expert: FLUENCY | | + + + + + | Procedure Note | + + | Interface, Radiology Results - 03/11/2019 9:49 AM PDT [address] | | [address] [place] [address] | | Name: CHUCK SANTOS Phys: ANGEL ARTHUR : 1975 Sex: M | | CSN: [id number] MR# [id number] Exam Date: 03/11/2019 EXAM:CT ABDOMEN AND | | PELVIS WITH CONTRAST CLINICAL HISTORY:Epigastric pain. Rule out hernia. COMPARISON:None | | available. TECHNIQUE:Axial CT images of the abdomen and pelvis were obtained following | | theuneventful administration of 100 cc of Omnipaque-300 IV contrast.Coronal and sagittal | | multiplanar reformations were generated. Dosereduction techniques, including | | automatic exposure control (AutomAand SmartmA), organ dose modulation and adaptive | | statisticaliterative reconstruction (ASiR) were utilized. FINDINGS: Abdomen CT: Limited | | views of the lung bases are clear. No free gasbelow the diaphragm. Gallbladder is not | | inflamed. Liver is noncirrhotic. Spleen, adrenal glands and pancreas appear | | unremarkable.The left kidney shows a 5 mm upper pole calyceal nonobstructingcalculus and | | a 1 mm calyceal inferior pole nonobstructing calculus aswell. No kidney has | | hydronephrosis. Right kidney has a punctateupper pole calyceal nonobstructing calculus | | as well. Pelvis CT: Negative retroperitoneal lymphadenopathy, free fluid ormasses. No | | CT evidence to suggest a hernia. There is no spigelian,inguinal or femoral hernia | | identified. No evidence for ventralhernia. Negative pelvic adenopathy, free fluid or | | masses. Osseousstructures show negative lytic, blastic or traumatic bony abnormality. | | IMPRESSION:1. No acute inflammatory like process identified to explain thepatient's | | discomfort. 2. No hernia. 3. Nonobstructing bilateralrenal calculi. REPORT | | SIGNED IN OTHER VENDOR SYSTEM 03/11/2019 Reported by: Joseph Diaz MD Electronically | | signed by: Joseph Diaz MD Transcribed Date/Time: 03/11/2019 09:45Transcriptionist: | | FLUENCY | |Coronal and sagittal multiplanar reformations were generated. Dose | |reduction techniques, including automatic exposure control (AutomA | |and SmartmA), organ dose modulation and adaptive statistical | |iterative reconstruction (ASiR) were utilized. | | | |FINDINGS: | | | |Abdomen CT: Limited views of the lung bases are clear. No free gas | |below the diaphragm. Gallbladder is not inflamed. Liver is non | |cirrhotic. Spleen, adrenal glands and pancreas appear unremarkable. | |The left kidney shows a 5 mm upper pole calyceal nonobstructing | |calculus and a 1 mm calyceal inferior pole nonobstructing calculus as | |well. No kidney has hydronephrosis. Right kidney has a punctate | |upper pole calyceal nonobstructing calculus as well. | | | |Pelvis CT: Negative retroperitoneal lymphadenopathy, free fluid or | |masses. No CT evidence to suggest a hernia. There is no spigelian, | |inguinal or femoral hernia identified. No evidence for ventral | |hernia. Negative pelvic adenopathy, free fluid or masses. Osseous | |structures show negative lytic, blastic or traumatic bony | |abnormality. | | | |IMPRESSION: | |1. No acute inflammatory like process identified to explain the | |patient's discomfort. 2. No hernia. 3. Nonobstructing bilateral | |renal calculi. | | | | | | REPORT SIGNED IN OTHER VENDOR SYSTEM 03/11/2019 | |Reported by: Joseph Diaz MD | | | |Electronically signed by: Joseph Diaz MD | | | |Transcribed Date/Time: 03/11/2019 09:45 | |Chemical Detection Expert: VAL | | | | | | [...] + | Diagnosis | + + | Chronic RLQ pain Abdominal pain, right lower quadrant | + + documented in this encounter Administered Medications + +--------+ +--------+------+ + | Medication Order | MAR | Action | Dose | Rate | Site | | | Action | Date | | | | + +--------+ +--------+------+ + | iohexol (OMNIPAQUE) 300 mg | Given | 03/11/20 | 100 mL | | Right AC | | iodine/mL 100 mL 100 mL, | | 19 9:02 | | | | | intravenous, PROCEDURE ONCE, 1 | | AM PDT | | | | | dose, 03/11/19 at 0900 | | | | | | + +--------+ +--------+------+ + + +---+ | | | + +---+ | iohexol (OMNIPAQUE) 300 mg | | | iodine/mL 1 dose, Starting Wed | | | 03/11/19 at 0757, Until Wed | | | 03/11/19 at 0902 | | + +---+ | | | + +---+ | NaCl 0.9 % (NS) solution 1 | | | dose, Starting 03/11/19 at | | | 0757, Until 03/11/19 at 0902 | | + +---+ | | | + +---+ + +---------+ +-------+---+ + | sodium chloride 0.9 % (NS) IV | IV Push | 03/11/20 | 60 mL | | Right AC | | infusion 60 mL, intravenous, | | 19 9:02 | | | | | ONCE, 1 dose, 03/11/19 at 0930 | | AM PDT | | | | + +---------+ +-------+---+ + +---+---+ | | | +---+---+ documented in this encounter"
--- OUTSIDE RECORDS SUMMARY | ~2020-05-06 | XMS | Encounter Summary ---
Demographics + + + | Address | [address] | | | [place] [address] | + + + | Home Phone [...] [place] | | | | | [address] | | + + + + + Care Team Providers + +------+ + | Care Endodontics Dentist Name | Role | Phone | + +------+ + | Violeta Parker DO | PCP | | + +------+ + Encounter Details +--------+--------+ + + + | Date | Type | Department | Care Team | Description | +--------+--------+ + + + | 03/05/ | Travel | | | | | [...]
--- OUTSIDE RECORDS SUMMARY | ~2020-05-06 | XMS | Encounter Summary ---
Demographics + + + | Address | [address] | | | [place] [address] | + + + | Home Phone | | + + + | Preferred Language | Unknown | + + + | Marital Status | Single | + + + | Holiness Affiliation | NRP | + + + | Race | White | + + + | Ethnic Group | Not or | + + + Author + + + | Author | [facility] | + + + | Organization | [facility] | + + + | Address | Unknown | + + + | Phone | Unavailable | + + + Support + + + + + | Name | Relationship | Address | Phone | + + + + + | Neda Castañeda | ECON | [place] | | | | | [address] | | + + + + + Care Team Providers + +------+ + | Care Marine Structural Welder Name | Role | Phone | + +------+ + | Iliana Parker DO | PCP | | + +------+ + Reason for Visit + + + | Reason | Comments | + + + | Diarrhea | Patient stated that he had "extreme diarrhea" last Saturday d/t | | | some bad food. Patient stated that his rectum is still sore "like | | | something is hanging out." He thought it would get better, but | | | it hasn't. He states he had some bright red rectal bleeding | | | during his extreme diarrhea. | + + + Encounter Details +--------+ + + + + | Date | Type | Department | Care Team | Description | +--------+ + + + + | 09/06/ | Emergency | Emergency | Travis Middleton | | | 2017 | | Department at [facility] | G, DO [address] | | | | | Hospital [address] [place], [place] | | | | | [address] [place], | [address] | | | | | [place] [address] | [phone] | | | | | [phone] | | | +--------+ + + + [...] + + + | Blood Pressure | 113/65 | 09/06/2018 2:01 AM | | | | | PST | | + + + + + | Pulse | 67 | 09/06/2018 2:01 AM | | | | | PST | | + + + + + | Temperature | 36.9 C (98.4 F) | 09/06/2018 2:01 AM | | | | | PST | | + + + + + | Respiratory Rate | 16 | 09/06/2018 2:01 AM | | | | | PST | | + + + + + | Oxygen Saturation | 99% | 09/06/2018 2:01 AM | | | | | PST [...] + documented in this encounter Discharge Instructions Travis Saul DO - 09/06/2018Please return to the emergency department he developed increasing pain, bleeding, or any other unusual symptoms develop. Please promptly call the provider or clinic recommended by your ED physician after being di scharged from the emergency department to schedule a follow-up visit. Primary care provider clinics can be contacted Saturday through Saturday 8:00 AM to 5:00 PM and specialty clinics M through Saturday 8:00 AM to 5:00 PM. You should try to be seen in follow-up or talk to the follow-up provider's nurse in the next 5 days. You may be asked to follow-up with a dif ferent provider or clinic in order to get you seen sooner. Thank you for letting us serve you today. AttachmentsThe following attachments cannot be sent through Care Everywhere.Hemorrhoidectom y: Post-op (Irish)Hemorrhoids (Irish)Blood Pressure: Elevated (Irish)documented in thi s encounter Medications at Time of Discharge + [...] daily. | | | | | | release(/EC) | | | | | | + [...] + + + +---------+ + + | | Take 1 tablet by | 1 kit | 0 | 09/06/20 | | | hydrocodone-acetamin | mouth once for 1 | | | 18 | 8 | | ophen oral tablet | dose. Take 1-2 tabs | | | | | | (ER take home kit) | every 4 hours as | | | | | | | needed for pain | | | | | + + + +---------+ + + documented as of this encounter Plan of Treatment Not on filedocumented as of this encounter Procedures + +--------+ + + + | Procedure Name | Priori | Date/Time | Associated Diagnosis | Comments | | | ty | | | | + +--------+ + + + | ED INFORMATION | Routin | 09/06/2018 | | Results for this | | EXCHANGE | e | 12:38 AM | | procedure are in the | | | | PST | | results section. | + +--------+ + + + documented in this encounter Results ED INFORMATION EXCHANGE (09/06/2018 12:38 AM PST) + + + + + + | Component | Value | Ref Range | Performed | Pathologist | | | | | At | Signature | + + + + + + | [facility] | [id number] | [facility] | | | | [id number] | | MEDICAL | | | | | | [facility] | | | | | | S | | + + + + + + + + | Specimen | + + | | + + + + + | Narrative | Performed At | + + + | [facility] has no Care Guidelines for this patient. ED/UCC VISIT | [facility] | | TRACKING (3 MO.) Visit Date Location | MEDICAL | | City ST Type Dx/Complaint | TECHNOLOGIES | | -------- | | | ------- ---- 09/06/2018 00:37 | | | [facility] [place] [facility] | | | [id number]. Rectal pain x1 week / Bleeding / Diarrhea ED VISIT | | | COUNT (12 MO.) Visits Location ------ --------- 4 | | | [place] [address] [place] | | | [facility] 5 Total Note: Visits indicate total known | | | visits. | | | | | | --- CARE PROVIDERS Name | | | Phone | | | Type | | | Service Dates ---- | | | ----- | | | ---- | | | | | | ILIANA JAVED | | | [id number] Student in an Organized Health Care | | | Education/Training Program Unknown - Current TAMRA MEDRANO | | | Unknown | | | Physician Tank Worker | | | 11/14/2015 - Current ILIANA JAVED | | | at [facility] Unknown | | | Primary Care | | | 11/14/2015 - Current TAMRA MEDRANO at [place] | | | [facility] [phone] Primary | | | Care | | | 11/14/2015 - Current [facility] | | | [phone] | | | Primary Care | | | 11/15/2015 - Current [facility] | | | Living [phone] | | | Mental Health Provider | | | 08/18/2014 - Current | | + + + + + + + + | Performing | Address | City/State/Zipcode | Phone Number | | Organization | | | | + + + + + | [facility] | [address] | [place], [place] | [phone] | | TECHNOLOGIES | [address] | [address] | | + + + + + documented in this encounter Visit Diagnoses + + | Diagnosis | + + | Thrombosed external hemorrhoids - Primary External thrombosed hemorrhoids | + + | Elevated blood pressure reading Elevated blood pressure reading without diagnosis of | | hypertension | + + documented in this encounter Administered Medications + +--------+ +------+------+------+ | Medication Order | MAR | Action | Dose | Rate | Site | | | Action | Date | | | | + +--------+ +------+------+------+ | hydrocodone-acetaminophen | Given | 09/06/20 | | | | | (NORCO) tablet 1 dose, Starting | | 18 2:03 | | | | | 09/06/18 at 0200, Until Sat | | AM PST | | | | | 09/06/18 at 0203 | | | | | | + +--------+ +------+------+------+ +---+---+ | | | +---+---+ documented in this encounter
--- OUTSIDE RECORDS SUMMARY | ~2020-05-06 | XMS | Encounter Summary ---
Demographics + + + | Address | [address] | | | [place] [address] | + + + | Home Phone [...] [place] | | | | | [address] | | + + + + + Care Team Providers + +------+ + | Care Investigations Director Name | Role | Phone | + +------+ + | Violeta Parker DO | PCP | | + +------+ + Encounter Details +--------+--------+ + + + | Date | Type | Department | Care Team | Description | +--------+--------+ + + + | 03/26/ | Travel | | | | | [...]
--- OUTSIDE RECORDS SUMMARY | ~2020-05-06 | XMS | Encounter Summary ---
Demographics + + + | Address | [address] | | | [place] [address] | + + + | Home Phone [...] Author + + + | Author | [facility] | + + + | Organization | [facility] | + + + | Address | Unknown | + + + | Phone | Unavailable | + + + Support + + + + + | Name | Relationship | Address | Phone | + + + + + | Neda Castañeda | ECON | [place] | | | | | [address] | | + + + + + Care Team Providers + +------+ + | Care Batting Machine Operator Insulation Name | Role | Phone | + +------+ + | Nathalie Castillo | PCP | | + +------+ + Encounter Details +--------+ + + + + | Date | Type | Department | Care Team | Description | +--------+ + + + + | 06/30/ | Results | [facility] [address] | Other, Faculty | | | 2010 | Only | [address] | [phone] | | | | | [address] | | | | | | [address] | | | +--------+ + + + [...] | NEREIDA MORILLO ONLY | Routin | 06/30/2011 | | Results for this | | | e | 5:12 PM | | procedure are in the | | | | PDT | | results section. | + +--------+ + + + | CBC W/DIFF, REFLEX | Routin | 06/30/2011 | | Results for this | | | e | 4:40 PM | | procedure are in the | | | | PDT | | results section. | + +--------+ + + + | COMPLETE METABOLIC | Routin | 06/30/2011 | | Results for this | | SET | e | 4:40 PM | | procedure are in the | | (NA,K,CL,CO2,BUN,CRE | | PDT | | results section. | | AT,GLUC,CA,AST,ALT,B | | | | | | FRED TOTAL,ALK | | | | | | PHOS,ALB,PROT TOTAL) | | | | | + +--------+ + + + | D-DIMER, (PE OR DIC) | Routin | 06/30/2011 | | Results for this | | | e | 4:40 PM | | procedure are in the | | | | PDT | | results section. | + +--------+ + + + documented in this encounter Results NEREIDA MORILLO ONLY (06/30/2011 5:12 PM PDT) + + + + + [...] + + + + | SPECIFIC | 1.018 | 1.005 - 1.030 | [facility] | | | GRAVITY | | | A MEDICAL | | | | | | CENTER | | + + + + + + | PH(UR) | 6.5 | 5.0 - 8.0 | [facility] | [...] + + + + | BLOOD | NEG | NEGATIVE | [facility] | [...] + + | [facility] | [address] | [place], [place] | | | MEDICAL CENTER | Streets | [address] | | + + + + + CBC JACOBO VALADEZ (06/30/2011 4:40 PM PDT) + +---------+ + + + | Component | Value | Ref Range | Performed | Pathologist | | | | | At | Signature | + +---------+ + + + | WHITE BLOOD | 6.6 | 4.3 - 11.0 X10 | [facility] | | | CELL COUNT | | 3/ul | A MEDICAL | | | | | | CENTER | | + +---------+ + + + | HEMOGLOBIN | 15.1 | 12.3 - 17.0 | [facility] | | | | | g/dL | A MEDICAL | | | | | | CENTER | | + +---------+ + + + | RED BLOOD | 4.97 | 4.7 - 6.1 X10 | [facility] | | | CELL COUNT | | 6/uL | A MEDICAL | | | | | | CENTER | | + +---------+ + + + | HEMATOCRIT | 45.1 | 40.0 - 54.0 % | [facility] | | | | | | A MEDICAL | | | | | | CENTER | | + +---------+ + + + | MCV | 90.6 | 82 - 100 fl | [facility] | | | | | | A MEDICAL | | | | | | CENTER | | + +---------+ + + + | MCH | 30.4 | 28.0 - 32.0 pg | [facility] | | | | | | A MEDICAL | | | | | | CENTER | | + +---------+ + + + | MCHC | 33.5 | 32 - 36 g/dL | [facility] | | | | | | A MEDICAL | | | | | | CENTER | | + +---------+ + + + | RDW | 12.7 | 12 - 15 fL | [facility] | | | | | | A MEDICAL | | | | | | CENTER | | + +---------+ + + + | PLATELET | 204 | 150 - 450 X10 3 | [facility] | | | COUNT | | | A MEDICAL | | | | | | CENTER | | + +---------+ + + + | MPV | 7.7 (L) | 9.0 - 12.0 fL | [facility] | | | | | | A MEDICAL | | | | | | CENTER | | + +---------+ + + + | NEUTROPHIL | 55.9 | 40 - 80 % | [facility] | | | % | | | A MEDICAL | | | | | | CENTER | | + +---------+ + + + | LYMPHOCYTE | 31.2 | 20 - 50 % | [facility] | | | % | | | A MEDICAL | | | | | | CENTER | | + +---------+ + + + | EOS % | 2.2 | 0 - 5 % | [facility] | | | | | | A MEDICAL | | | | | | CENTER | | + +---------+ + + + | BASO % | 2.7 (H) | 0 - 1 % | [facility] | | | | | | A MEDICAL | | | | | | CENTER | | + +---------+ + + + | MONOCYTE % | 8.0 | 2 - 10 % | [facility] | | | | | | A MEDICAL | | | | | | CENTER | | + +---------+ + + + | BANDS % | SR ACCOUNT EXECUTIVE | 0 - 7 % | [facility] | | | | [...] | + + + + + | [facility] | And | [place], [place] | | | [facility] | Streets | [address] | | + + + + + D-DIMER, (PE OR DIC) (06/30/2011 4:40 PM PDT) + + + + + + | Component | Value | Ref Range | Performed | Pathologist | | | | | At | Signature | + + + + + + | D-DIMER, | < 200Comment: | <230 ng/mL | [facility] | | | QUANTITATIV | QUANTITATIVE D-DIMER | | A MEDICAL | | | E | INTERPRETATION:< 229 : | | CENTER | | | | NEGATIVE> 230 : POSITIVE | | | | | | | [...] + + + | [facility] | [address] [place] | [place], [place] | | | MEDICAL CENTER | Streets | [address] | | + + + + + COMPLETE METABOLIC SET (NA,K,CL,CO2,BUN,CREAT,GLUC,CA,AST,ALT,BILI TOTAL,ALK PHOS,ALB,PROT TOTAL) (06/30/2011 4:40 PM PDT) + +--------+ + + + | Component | Value | Ref Range | Performed | Pathologist | | | | | At | Signature | + +--------+ + + + | SODIUM, | 142 | 137 - 146 MEQ/L | [facility] | | | PLASMA | | | A MEDICAL | | | (LAB) | | | CENTER | | + +--------+ + + + | POTASSIUM, | 4.1 | 3.5 - 5.2 MEQ/L | [facility] | | | PLASMA | | | A MEDICAL | | | (LAB) | | | CENTER | | + +--------+ + + + | CO2 | 30 (H) | 22 - 28 MEQ/L | [facility] | | | | | | A MEDICAL | | | | | | CENTER | | + +--------+ + + + | CHLORIDE, | 103 | 98 - 106 MEQ/L | [facility] | | | PLASMA | | | A MEDICAL | | | (LAB) | | | CENTER | | + +--------+ + + + | ANION GAP | 13.1 | 8 - 16 MEQ/L | [facility] | | | | | | A MEDICAL | | | | | | CENTER | | + +--------+ + + + | GLUCOSE, | 95 | 70 - 105 MG/DL | [facility] | | | PLASMA | | | A MEDICAL | | | (LAB) | | | CENTER | | + +--------+ + + + | BUN, PLASMA | 14 | 8 - 30 MG/DL | [facility] | | | (LAB) | | | A MEDICAL | | | | | | CENTER | | + +--------+ + + + | CREATININE | 0.98 | 0.9 - 1.3 MG/DL | [facility] | | | PLASMA | | | A MEDICAL | | | (LAB) | | | CENTER | | + +--------+ + + + | BUN/CREATIN | 14 | 6 - 20 RATIO | [facility] | | | INE RATIO | | | A MEDICAL | | | | | | CENTER | | + +--------+ + + + | CALCIUM, | 9.3 | 8.5 - 10.8 | [facility] | | | PLASMA | | MG/DL | A MEDICAL | | | (LAB) | | | CENTER | | + +--------+ + + + | AST(SGOT) | 20 | 10 - 41 U/L | [facility] | | | | | | A MEDICAL | | | | | | CENTER | | + +--------+ + + + | ALT (SGPT) | 30 | 7 - 51 U/L | [facility] | | | | | | A MEDICAL | | | | | | CENTER | | + +--------+ + + + | ALK PHOS | 53 | 34 - 158 U/L | [facility] | | | | | | A MEDICAL | | | | | | CENTER | | + +--------+ + + + | TOTAL | 7.1 | 6.7 - 8.5 G/DL | [facility] | | | PROTEIN, | | | A MEDICAL | | | PLASMA | | | CENTER | | | (LAB) | | | | | + +--------+ + + + | ALBUMIN, | 4.1 | 3.5 - 5.0 G/DL | [facility] | | | PLASMA | | | A MEDICAL | | | (LAB) | | | CENTER | | + +--------+ + + + | BILIRUBIN | 0.6 | 0.2 - 1.6 MG/DL | [facility] | | | TOTAL | | | A MEDICAL | | | | | | CENTER | | + +--------+ + + + | ESTIMATED | 93.1 | >60 | [facility] | | | GFR | | | A MEDICAL | | | | | | CENTER | | + +--------+ + + + | FASTING? | UNK | HR | [facility] | | | | | | A MEDICAL | | | | | | CENTER | | + +--------+ + + + + + | Specimen | + + | | + + + + + + + | Performing | Address | City/State/Zipcode | Phone Number | | Organization | | | | + + + + + | [facility] | | | | | LABORATORY | | | | + + + + + | [facility] | And | [place] | | | [facility] | [facility] | [address] | | + + + + + documented in this encounter Visit Diagnoses Not on filedocumented in this encounter"
--- OUTSIDE RECORDS SUMMARY | ~2020-05-06 | XMS | Encounter Summary ---
Demographics + + + | Address | [address] | | | [place] [address] | + + + | Home Phone | | + + + | Preferred Language | Unknown | + + + | Marital Status | Single | + + + | Druze Affiliation | NRP | + + + [...] [place] | | | | | [address] | | + + + + + Care Team Providers + +------+ + | Care Silver Solderer Name | Role | Phone | + +------+ + | Violeta Parker DO | PCP | | + +------+ + Reason for Visit + + + | Reason | Comments | + + + | Pre-Admission | | + + + Encounter Details +--------+ + + + + | Date | Type | Department | Care Team | Description | +--------+ + + + + | 09/03/ | Telephone | Endoscopy | Humberto, | Pre-Admission | | 2019 | IP | Department at [facility] | Angel Woodall MD [address] | | | | | [facility] [address] | | | [address] [place], | [place], [place] | | | | | [place] [address] | [address] | | | | | [phone] | [phone] | | | | | | | [...]
--- OUTSIDE RECORDS SUMMARY | ~2020-05-06 | XMS | Encounter Summary ---
Demographics + + + | Address | [address] | | | [place] [address] | + + + | Home Phone | | + + + | Preferred Language | Unknown | + + + | Marital Status | Single | + + + | Mandaen Affiliation | NRP | + + + [...] [place] | | | | | [address] | | + + + + + Care Team Providers + +------+ + | Care Supervisor Boilermaking Shop Name | Role | Phone | + +------+ + | Herbert Marei MD,MPH | PCP | Unavailable | + +------+ + Reason for Visit +--------+ + | Reason | Comments | +--------+ + | Other | | +--------+ + Encounter Details +--------+ + + + + | Date | Type | Department | Care Team | Description | +--------+ + + + + | 02/28/ | Telephone | [facility] | Anne Delvalle MD | | | 2016 | | [facility] [address] | | | | | [address] | [facility] [address] | | | | | [place] [address] | [place] | | | | | [address] | [place] [address] | | | | | [phone] | [phone] | | | | | | | [...] on filedocumented as of this encounter Results LAB OTHER (06/21/2016 1:46 PM PDT) + + + + + + | Component | Value | Ref Range | Performed | Pathologist | | | | | At | Signature | + + + + + + | MISC REF | [place] 15-3 | | [facility] | | | TEST NAME | | | REFERENCE | | | | | | LAB | | + + + + + + | MISC REF | see scanned report | | [facility] | | | TEST RESULT | | | REFERENCE | | | | | | LAB | | + + + + + + | NORMAL | | | [facility] | | | RANGE | | | REFERENCE | | | | | | LAB | | + + + + + + | REFERRAL | Test performed by: | | [facility] | | | LAB NAME | | | REFERENCE | | | | [facility] | | LAB | | | | /[place] | | | | | | [id number] | | | | | | [place] | | | | | | [place] | | | | | | [place] | | | | | | [address] | | | | + + + + + + + + | Specimen | + + | Blood - Blood | + + + + + | Narrative | Performed At | + + + | | | + + + + + + + + | Performing | Address | City/State/Zipcode | Phone Number | | Organization | | | | + + + + + | [facility] | | | | + + + + + | [facility] | See below | | | + + + + + [facility] (19-9), SERUM (06/21/2016 1:46 PM PDT) + + + [...] | | DIAGNOSTICS | | | | Siemens chemiluminescent | | - [place] | | | | method. Values obtained [...] of | | | | | | disease. | | | | + + + + + + + + | Specimen | + + | Blood - Blood | + + + + + + + | Performing | Address | City/State/Zipcode | Phone Number | | Organization | | | | + + + + + | [facility] | [address] | [place] [address] | | | - [place] | [address] | | | + + + + + X-RAY CHEST 2 VIEW (04/19/2016 1:45 PM PDT) + + | Specimen | + + | | + + + + + | Narrative | Performed At | + + + | [address] [place] [address] | [facility] | | [place] [address] | DEPARTMENT | | [phone] Name: CHUCK SANTOS Phys: | RADIOLOGY | | ANNE DELVALLE : 1975 Sex: Magalie CSN: | | | [id number] MR# [id number] Exam Date: 04/19/2016 | | | EXAM: TWO VIEW CHEST XRAY CLINICAL HISTORY: History of prostate | | | cancer COMPARISON: 08/22/2011. TECHNIQUE: PA and lateral | | | views of the chest were obtained. FINDINGS: Lungs: No focal | | | infiltrate, pneumothorax, effusion, CHF or pulmonary edema. | | | Heart: Normal. Bones: There is no definite osteoblastic | | | metastasis. IMPRESSION: No radiographic evidence of metastatic | | | disease. REPORT SIGNED IN OTHER VENDOR SYSTEM 04/19/2016 | | | Reported by: WAED MARTÍNEZ MD Electronically signed by: WADE | | | MD TANYA Transcribed Date/Time: 04/19/2016 14:08 | | | Bus Monitor: FLUENCY | | + + + + + | Procedure Note | + + | Interface, Radiology Results - 04/19/2016 2:12 PM PDT [address] | | [place] [id number] | | Name: MADDYCHUCK Phys: ANNE DELVALLE : 1975 Sex: M CSN: | | [id number] MR# [id number] Exam Date: 04/19/2016 EXAM:TWO VIEW CHEST XRAY | | CLINICAL HISTORY:History of prostate cancer COMPARISON:08/22/2011. TECHNIQUE:PA and | | lateral views of the chest were obtained. FINDINGS:Lungs: No focal infiltrate, | | pneumothorax, effusion, CHF or pulmonaryedema. Heart: Normal. Bones: There is no | | definite osteoblastic metastasis. IMPRESSION:No radiographic evidence of metastatic | | disease. REPORT SIGNED IN OTHER VENDOR SYSTEM 04/19/2016 Reported by: WADE | | MD TANYA Electronically signed by: WADE MARTÍNEZ MD Transcribed Date/Time: | | 04/19/2016 14:08Transcriptionist: FLUENCY | | | |EXAM: | |TWO VIEW CHEST XRAY | | | |CLINICAL HISTORY: | |History of prostate cancer | | | |COMPARISON: | |08/22/2011. | | | |TECHNIQUE: | |PA and lateral views of the chest were obtained. | | | |FINDINGS: | |Lungs: No focal infiltrate, pneumothorax, effusion, CHF or pulmonary | |edema. | | | |Heart: Normal. | | | |Bones: There is no definite osteoblastic metastasis. | | | |IMPRESSION: | |No radiographic evidence of metastatic disease. | | | | | | REPORT SIGNED IN OTHER VENDOR SYSTEM 04/19/2016 | |Reported by: WADE MARTÍNEZ MD | | | |Electronically signed by: WADE MARTÍNEZ MD | | | |Transcribed Date/Time: 04/19/2016 14:08 | |Bus Monitor: FLUENCY | | | | | | [...] + | Diagnosis | + + | Cancer of prostate w/recur risk not determined/nemarie low, med nor high (HCC) - Primary | | Malignant neoplasm of prostate | + + documented in this encounter"
--- OUTSIDE RECORDS SUMMARY | ~2020-05-06 | XMS | Encounter Summary ---
Demographics + + + | Address | [address] | | | [place] [address] | + + + | Home Phone [...] + + | Author | [facility] | + + + | Organization | [facility] | + + + | Address | Unknown | + + + | Phone | Unavailable | + + + Support + + + + + | Name | Relationship | Address | Phone | + + + + + | Neda Santos | ECON | [place] | | | | | [address] | | + + + + + Care Team Providers + +------+ + | Care Food Safety Scientist Name | Role | Phone | + +------+ + | Miguel A Medrano PA-C | PCP | | + +------+ + Reason for Referral Diagnostic Testing (Routine) +--------+--------+ + + + + | Status | Reason | Specialty | Diagnoses / | Referred By | Referred To | | | | | Procedures | Contact | Contact | +--------+--------+ + + + + | Closed | | Radiology | Diagnoses | Karmen | Analy Mri | | | | | Chronic | [place] | [address] | | | | | left-sided | [address] | [address] | | | | | low back | St The | [place], [place] | | | | | pain with | [place], [place] | [address] | | | | | left-sided | [address] | Phone: | | | | | sciatica | Phone: | [phone] | | | | | Procedures | [phone] | | | | | | MRI SPINE | Fax: | | | | | | LUMBAR WO | [phone] | | | | | | CONTRAST | | | +--------+--------+ + + + + Reason for Visit + + + | Reason | Comments | + + + | Follow-up visit | Pt is here for follow up of prediabetes. Pt states he has stopped | | | drinking soda and been drinking more water. Trying to eat | | | healthier. | + + + Encounter Details +--------+---------+ + + + | Date | Type | Department | Care Team | Description | +--------+---------+ + + + | 03/12/ | Office | [facility] | Miguel A Medrano PA-C | Mixed hyperlipidemia | | 2018 | Visit | Medicine [address] | (Primary Dx); | | | | [address] [place], | [place], [place] | Prediabetes; Chronic | | | | [place] [address] | [address] | left-sided low back | | | | [phone] | [phone] | pain with | | | | | | left-sided sciatica | +--------+---------+ + + + Social History [...] + + + | Blood Pressure | 98/64 | 03/12/2018 2:30 PM | | | | | PDT | | + + + + + | Pulse | 76 | 03/12/2018 2:30 PM | | | | | PDT | | + + + + + | Temperature | - | - | | + + + + + | Respiratory Rate | - | - | | + + + + + | Oxygen Saturation | 98% | 03/12/2018 2:30 PM | | | | | PDT | | + + + + + | Inhaled Oxygen | - | - | | | Concentration | | | | + + + + + | Weight | 89.8 kg (198 lb) | 03/12/2018 2:30 PM | | | | | PDT | | + + + + + | Height | 162.6 cm (5' 4") | 03/12/2018 2:30 PM | | | | | PDT | | + + + + + | Body Mass Index | 33.99 | 03/12/2018 2:30 PM | | | | | PDT | | + + + + + documented in this encounter Patient Instructions Patient Instructions Miguel A Medrano PA-C - 03/12/2018 2:30 PM PDT Labs today we'll call w ith results You should be called to schedule MRI within next week. We'll call with results and plan when completed. documented in this encounter Progress Notes Miguel A Medrano PA-C - 03/12/2018 2:30 PM PDT Chief Complaint Patient presents with Follow-up visit Pt is here for follow up of prediabetes. Pt states he has stopped drinking soda and been drinking more water. Trying to eat healthier. Subjective PRE-DIABETES = = = = = = = = = = Severity/control: A1c - Lab Results Component Value Date A1C 5.5 09/12/2017 Home monitoring: No He has been eating healthier. Cut out soda. Eating more fruits and vegetables. Patient's goal met? ===== A1c - <7 [...] impairments, a nd life expectancy <5 years HYPERTENSION= = = = = = = = = = BP Readings from Last 3 Encounters: 03/12/18 98/64 12/20/17 (!) 140/98 12/17/17 138/88 Patient's goal met? ===== BP - <140/90 - Yes HYPERCHOLESTEROLEMIA= = = = = = = = = = Lab Results Component Value Date CHOL 181 03/13/2017 LDL 112 03/13/2017 HDL 36 03/13/2017 TRI 163 03/13/2017 Patient's goal met? ===== LDL < 160 mg/dl (< 2 risk factors are present) - No TG <150 - No [...] uction if 10-yr ASCVD risk >7.5% Adherence Pre-DM med(s) taken regularly N/A HTN meds taken regularly N/A HLD med taken regularly N/A Med side effects There are no noted side effects ROS/Target organ Lab Results Component Value Date CR 1.1 03/13/2017 CR 1.2 03/09/2017 CR 1.2 03/08/2017 Microalbumin RESUFAST(microalbumin,uralbumin,paxxep08r,urcreatconc)@ not done Other CAD Risk Factors Smoking History Smoking Status Former Smoker Quit date: 03/08/2015 Smokeless Tobacco Never Used Weight Body mass index is 33.99 kg/m. Wt Readings from Last 3 Encounters: 03/12/18 89.8 kg (198 lb) 12/17/17 85.3 kg (188 lb) 10/03/17 87.1 kg (192 lb) Chemoprophylaxis ACEi/ARB - No ASA - No Immunizations Immunization History Administered Date(s) Administered Flu trivalent injectable pfree 10/11/2014 Influenza Injectable Quadrivalent (IIV4 P-Free) 06/21/2016, 09/12/2017 Td (adult), adsorbed 09/30/2010 Tdap 12/20/2017 Varicella 07/05/2016, 08/02/2016 Reviewed allergies, medications, past and family/social history, problem list. Review of Systems Constitutional: Negative for chills, diaphoresis, fever, malaise/fatigue and weight loss. Respiratory: Negative for cough, hemoptysis, sputum production, shortness of breath and whe ezing. Cardiovascular: Negative for chest pain, palpitations, orthopnea, claudication, leg swellin g and PND. Gastrointestinal: Negative for abdominal pain, diarrhea, nausea and vomiting. Musculoskeletal: Positive for back pain. Negative for falls, joint pain, myalgias and neck pain. Skin: Negative for itching and rash. Neurological: Positive for tingling and sensory change. Negative for dizziness, tremors, sp eech change, focal weakness, seizures, loss of consciousness, weakness and headaches. Endo/Heme/Allergies: Negative for polydipsia. Objective Physical Exam BP 98/64 | Pulse 76 | Ht 1.626 m (5' 4") | Wt 89.8 kg (198 lb) | SpO2 98% | BMI 33.99 kg/(m ^2) General : 42 y.o. male well developed, well nourished and [...] no clubbing or cyanosis Neuro: Grossly normal, non-focal. Numbness in anterior left thigh. Knee extensor weakness. Lumbar spine and paraspinal tenderness present Monofilament: normal with full sensitivity in all plantar areas. Assessment Assessment / Plan PRE-DIABETES Controlled? - Yes HYPERTENSION Controlled? - Yes HYPERLIPIDEMIA Controlled? - No Chuck was seen today for follow-up visit. Diagnoses and all orders for this visit: Mixed hyperlipidemia Comments: Due for recheck. Hopefully improved since changing diet some, still not very active given l eft leg numbness. Orders: - LIPID SET (TRIG, T CHOL, HDL, CALC LDL); Future Prediabetes Comments: Due for recheck. Made recent diet changes. Reccomendations to follow. Orders: - HEMOGLOBIN A1C, BLOOD; Future Chronic left-sided low back pain with left-sided sciatica Comments: Persistent left sided sciatic pain with radicular pain and numbness in left thigh. Never sewell d MRI. Orders: - MRI SPINE LUMBAR WO CONTRAST; Future Signed, Miguel A Medrano PA-C [facility] Department of Family Medicine Return if symptoms worsen or fail to improve, for leg numbness . Patient Instructions Labs today we'll call with results You should be called to schedule MRI within next week. We'll call with results and plan when completed. I spent 25 minutes with patient with more than 50% of the time on counseling and care manag ement. documented in this enc ounter Plan of Treatment Not on filedocumented as of this encounter Results MRI SPINE LUMBAR WO CONTRAST (03/15/2018 9:44 AM PDT) + + | Specimen | + + | | + + + + + | Narrative | Performed At | + + + | [address] [place] [address] | [facility] | | [place], [place] [id number] [place] [address] | | [phone] Name: CHUCK SANTOS Phys: | RADIOLOGY | | MIGUEL A MEDRANO : 1975 Sex: M CSN: | | | [id number] MR# [id number] Exam Date: 03/15/2018 | | | EXAM: MRI SPINE LUMBAR WO CONTRAST [id number] CLINICAL HISTORY: | | | 42-year-old male with low back pain for more than 6 weeks, | | | conservative treatment. Patient indicated low back pain, left hip | | | and leg pain, left leg weakness and numbness. COMPARISON: No | | | prior MRI. Lumbar radiographs of April 19, 2016. No recent films | | | available. TECHNIQUE: Sagittal T1, T2, STIR, coronal T2, axial | | | T1, T2 sequences were obtained. FINDINGS: There are no signs of | | | recent or old vertebral body fracture, bone metastasis or mass. | | | Normal conus medullaris ends at L1-2. There is mild desiccation | | | and narrowing of L4-5 and L5-S1 discs. There are no significant | | | facet degenerative changes, spondylolysis or spondylolisthesis. | | | T12-L1, L1-2, L2-3, L3-4 disc levels are normal. There is a slight | | | L4-5 disc bulge. There is a small curvilinear area of posterior | | | annulus fissuring along the right neural foramen, series 7, image 23. | | | There is mild right foraminal stenosis. There is no central or | | | left foraminal stenosis. At L5-S1 there is a small central and | | | right paracentral disc protrusion and T2 hyperintensity in the | | | protruding annulus due to fissuring. Central canal and neural | | | foramina are patent. IMPRESSION: Slight L4-5 disc bulge. Small | | | central and right paracentral L5-S1 disc protrusion. REPORT | | | SIGNED IN OTHER VENDOR SYSTEM 03/17/2018 Reported by: Collins | | | MD Ramez Electronically signed by: Collins Myrick MD | | | Transcribed Date/Time: 03/17/2018 00:43 Application Support Administrator: VAL | | | | | + + + + + | Procedure Note | + + | Interface, Radiology Results - 03/17/2018 12:48 AM PDT [address] | [place], [place] [address] | | Name: CHUCK SANTOS Phys: MIGUEL A MEDRANO : 1975 Sex: M CSN: | | [id number] MR# [id number] Exam Date: 03/15/2018 EXAM:MRI SPINE LUMBAR WO | | CONTRAST [id number] CLINICAL HISTORY:42-year-old male with low back pain for more than 6 | | weeks,conservative treatment. Patient indicated low back pain, left hipand leg pain, | | left leg weakness and numbness. COMPARISON:No prior MRI. Lumbar radiographs of April 19, | | 2015. No recent filmsavailable. TECHNIQUE:Sagittal T1, T2, STIR, coronal T2, axial T1, | | T2 sequences wereobtained. FINDINGS:There are no signs of recent or old vertebral body | | fracture, bonemetastasis or mass. Normal conus medullaris ends at L1-2. There ismild | | desiccation and narrowing of L4-5 and L5-S1 discs. There are nosignificant facet | | degenerative changes, spondylolysis orspondylolisthesis. T12-L1, L1-2, L2-3, L3-4 disc | | levels are normal. There is a slight L4-5 disc bulge. There is a small curvilinear | | areaof posterior annulus fissuring along the right neural foramen, series7, image 23. | | There is mild right foraminal stenosis. There is nocentral or left foraminal stenosis. | | At L5-S1 there is a small central and right paracentral discprotrusion and T2 | | hyperintensity in the protruding annulus due tofissuring. Central canal and neural | | foramina are patent. IMPRESSION:Slight L4-5 disc bulge. Small central and right | | paracentral L5-S1disc protrusion. REPORT SIGNED IN OTHER VENDOR SYSTEM 03/17/2018 | | Reported by: Collins Myrick MD Electronically signed by: Collins Myrick MD Transcribed | | Date/Time: 03/17/2018 00:43Transcriptionist: VAL | |No prior MRI. Lumbar radiographs of April 19, 2016. No recent films | |available. | | | |TECHNIQUE: | |Sagittal T1, T2, STIR, coronal T2, axial T1, T2 sequences were | |obtained. | | | |FINDINGS: | |There are no signs of recent or old vertebral body fracture, bone | |metastasis or mass. Normal conus medullaris ends at L1-2. There is | |mild desiccation and narrowing of L4-5 and L5-S1 discs. There are no | |significant facet degenerative changes, spondylolysis or | |spondylolisthesis. | | | |T12-L1, L1-2, L2-3, L3-4 disc levels are normal. | | | |There is a slight L4-5 disc bulge. There is a small curvilinear area | |of posterior annulus fissuring along the right neural foramen, series | |7, image 23. There is mild right foraminal stenosis. There is no | |central or left foraminal stenosis. | | | |At L5-S1 there is a small central and right paracentral disc | |protrusion and T2 hyperintensity in the protruding annulus due to | |fissuring. Central canal and neural foramina are patent. | | | |IMPRESSION: | |Slight L4-5 disc bulge. Small central and right paracentral L5-S1 | |disc protrusion. | | | | | | REPORT SIGNED IN OTHER VENDOR SYSTEM 03/17/2018 | |Reported by: Collins Myrick MD | | | |Electronically signed by: Collins Myrick MD | | | |Transcribed Date/Time: 03/17/2018 00:43 | |Application Support Administrator: VAL | | | | | | | + + + +---------+ + + | Performing | Address | City/State/Zipcode | Phone Number | | Organization | | | | + +---------+ + + | [facility] | | | | | RADIOLOGY | | | | + +---------+ + + HEMOGLOBIN A1C, BLOOD (03/12/2018 3:15 PM PDT) + +-------+ + + + | Component | Value | Ref Range | Performed | Pathologist | | | | | At | Signature | + +-------+ + + + | HEMOGLOBIN | 5.7 | % | [facility] | | | A1C | | | A MEDICAL | | | | | | CENTER | | + +-------+ + + + | ESTIMATED | 117 | mg/dL | [facility] | | | [place] | | [...] Diabetic Ranges per DCCT & ADA: | [facility] | | Normal Range: <6% | [facility] | | Good Control: <7% | | | Additional action suggested: >8% Non-Diabetic | | | Ranges: 4-6% [employer]'s Glycohemoglobin | | | Diabetic Ranges: Normal Range: | | | 4.0-6.0% Good Control: | | | 6.0-8.0% Poor Control: | | | >8.0% | | + + + + + + + + | Performing | Address | City/State/Zipcode | Phone Number | | Organization | | | | + + + + + | [facility] | [address] | [place], [place] | [phone] | | [facility] | [facility] | [address] | | + + + + + LIPID SET (TRIG, T CHOL, HDL, CALC LDL) (03/12/2018 3:15 PM PDT) + +---------+ + + + | Component | Value | Ref Range | Performed | Pathologist | | | | | At | Signature | + +---------+ + + + | CHOLESTEROL | 304 (H) | 101 - 199 mg/dL | [facility] | | | (LAB) | | | A MEDICAL | | | | | | CENTER | | + +---------+ + + + | TRIGLYCERID | 280 (H) | 45 - 150 mg/dL | [facility] | | | ES | | | A MEDICAL | | | | | | CENTER | | + +---------+ + + + | HDL | 45 | >40 mg/dL | [facility] | | | CHOLESTEROL | | | A MEDICAL | | | | | | CENTER | | + +---------+ + + + | LDL | 203 (H) | <100 mg/dL | [facility] | | | CHOLESTEROL | | | A MEDICAL | | | , | | | CENTER | | | CALCULATED | | | | | + +---------+ + + + | VLDL | 56 (H) | 9 - 30 mg/dL | [facility] | | | CHOLESTEROL | | | A MEDICAL | | | , | | | CENTER | | | CALCULATED | | | | | + +---------+ + + + | NON-HDL | 259 (H) | <130 mg/dL | [facility] | | | CHOLESTEROL | | | A MEDICAL | | | | | | CENTER | | + +---------+ + + + | CARDIAC | 7 | | [facility] | | | RISK [...] a level 30 mg/dL higher than | [facility] | | that for LDL cholesterol. Cardiac Risk Ratio Interpretation: | [facility] | | Interpretation Cardiac Risk Ratio Below Average | | | Risk 0.0 - 3.4 Above Average Risk | | | 3.5 - 4.9 | | + + + + + + + + | Performing | Address | City/State/Zipcode | Phone Number | | Organization | | | | + + + + + | [facility] | [address] | [place] | [phone] | | [facility] [place] | [address] | | + + + + + documented in this encounter Visit Diagnoses + + | Diagnosis | + + | Mixed hyperlipidemia - Primary | + + | Prediabetes Other abnormal glucose | + + | Chronic left-sided low back pain with left-sided sciatica | + + documented in this encounter
--- OUTSIDE RECORDS SUMMARY | ~2020-05-06 | XMS | Encounter Summary ---
Demographics + + + | Address | [address] | | | [place] [address] | + + + | Home Phone [...] Author + + + | Author | [facility] | + + + | Organization | [facility] | + + + | Address | Unknown | + + + | Phone | Unavailable | + + + Support + + + + + | Name | Relationship | Address | Phone | + + + + + | Neda Santos | ECON | [place] | | | | | [address] | | + + + + + Care Team Providers + +------+ + | Care Well Puller Name | Role | Phone | + [...] | pain with | [place], [place] | [address] | | | | | left-sided | [address] | Phone: | | | | | sciatica | Phone: | [phone] | | | | | Procedures | [phone] | | | | | | MRI SPINE | Fax: | | | | | | LUMBAR WO | [phone] | | | | | | CONTRAST [...] Closed | | Radiology | Diagnoses | aKrmen, | [facility] | | | | | Chronic | SERGIO [place]ady | [address] | | | | | left-sided | [address] | [address] | | | | | low back | St [address] | [place], [place] | | | | | pain with | [place] | [address] | | | | | left-sided | [address] | Phone: | | | | | sciatica | Phone: | [phone] | | | | | Procedures | [phone] | | | | | | MRI SPINE | Fax: | | | | | | LUMBAR WO | [phone] | | | | | | CONTRAST | | | +--------+--------+ + + + + Encounter Details +--------+ + + + + | Date | Type | Department | Care Team | Description | +--------+ + + + + | 03/15/ | Hospital | Diagnostic Imaging | Miguel A Medrano PA-C | | | 2017 | Encounter | at [facility] | [address] | | | | | [address] | [place], [place] | | | | | [place] | [address] | | | | | [address] | [phone] | | | | | [phone] | | | +--------+ + + + [...] + documented as of this encounter Progress Notes Miguel A Medrano PA-C - 03/15/2018 11:59 PM PDTJames, There does not seem to be any nerve impingement of the left sciatic nerve distribution. The best course at this point would be to specifically try to strengthen your right lower leg a nd also your core muscles with physical therapy. I know you declined before, but I think thi s would be a good option for you. If you are interested, please let me know and I can place a referral. Sean documented in this encounter Plan of Treatment Not on filedocumented as of this encounter Procedures + +--------+ + + + | Procedure Name | Priori | Date/Time | Associated Diagnosis | Comments | | | ty | | | | + +--------+ + + + | MRI SPINE LUMBAR WO | Routin | 03/15/2018 | Chronic left-sided | Results for this | | CONT | e | 9:44 AM | low back pain with | procedure are in the | | | | PDT | left-sided sciatica | results section. | + +--------+ + + + documented in this encounter Results MRI SPINE LUMBAR WO CONTRAST (03/15/2018 9:44 AM PDT) + + | Specimen | + + | | + + + + + | Narrative | Performed At | + + + | [address] [place] [address] | [facility] | | [place] [address] | DEPARTMENT OF | | [phone] Name: CHUCK SANTOS Phys: | RADIOLOGY | | MIGUEL A MEDRANO : 1975 Sex: M CSN: | | | [id number] MR# [id number] Exam Date: 03/15/2018 | | | EXAM: MRI SPINE LUMBAR WO CONTRAST [id number] CLINICAL HISTORY: | | | 42-year-old male [...] | | | Transcribed Date/Time: 03/17/2018 00:43 Floor Clerk: FLUENCY | | | | | + + + + + | Procedure Note | + + | Interface, Radiology Results - 03/17/2018 12:48 AM PDT [address] | | [place] [address] | | Name: CHUCK SANTOS Phys: MIGUEL A MEDRANO : 1975 Sex: M CSN: | | [id number] MR# [id number] Exam Date: 03/15/2018 EXAM:MRI SPINE LUMBAR WO | | CONTRAST [id number] CLINICAL HISTORY:42-year-old male with low back pain [...] MD Transcribed | | Date/Time: 03/17/2018 00:43Transcriptionist: FLUENCY | |No prior MRI. Lumbar radiographs of [...] | | |Transcribed Date/Time: 03/17/2018 00:43 | |Floor Clerk: FLUENCY | | | | | | [...] | Diagnosis | + + | Chronic left-sided low back pain with left-sided sciatica | + + documented in this encounter"
--- OUTSIDE RECORDS SUMMARY | ~2020-05-06 | XMS | Encounter Summary ---
Demographics + + + | Address | [address] | | | [place] [address] | + + + | Home Phone [...] Author + + + | Author | [facility] | + + + | Organization | [facility] | + + + | Address | Unknown | + + + | Phone | Unavailable | + + + Support + + + + + | Name | Relationship | Address | Phone | + + + + + | Neda Castañeda | ECON | [place] | | | | | [address] | | + + + + + Care Team Providers + +------+ + | Care Corporate Legal Secretary Name | Role | Phone | + +------+ + | Herbert Marie MD,MPH | PCP | Unavailable | + +------+ + Reason for Visit + + + | Reason | Comments | + + + | Refill Request | Tizanidine HCL 4mg | + + + Encounter Details +--------+--------+ + + + | Date | Type | Department | Care Team | Description | +--------+--------+ + + + | 08/02/ | Refill | [facility] | [facility], | Refill Request | | 2016 | | Medicine [address] | [facility] | (Tizanidine HCL 4mg) | | | | [address] [place], | | | | | | [place] [address] | | | | | | [phone] | | | +--------+--------+ + + + [...]
--- OUTSIDE RECORDS SUMMARY | ~2020-05-06 | XMS | Encounter Summary ---
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 Cardiac [...] | [facility] | [address] | [place], [place] | [phone] | | [facility] | [facility] | [address] | | + + + + + COMPLETE METABOLIC SET (NA,K,CL,CO2,BUN,CREAT,GLUC,CA,AST,ALT,BILI TOTAL,ALK PHOS,ALB,PROT TOTAL) (09/12/2016 10:49 AM PST) + + + + + + | Component | Value | Ref Range | Performed | Pathologist | | | | | At | Signature | + + + + + + | GLUCOSE, | 101 | 70 - 105 mg/dL | [facility] | | | PLASMA | | | A MEDICAL | | | (LAB) | | | CENTER | | + + + + + + | BUN, PLASMA | 13 | 6 - 26 mg/dL | [facility] | | | (LAB) | | | A MEDICAL | | | | | | CENTER | | + + + + + + | CREATININE, | 1.3 | 0.9 - 1.3 mg/dL | [facility] | | | PLASMA | [...] | | A MEDICAL | | | GREEK | | | CENTER | | + [...] MDRD equation recommended by the | [facility] | | National Kidney Disease Education Program. Estimated GFR | [facility] | | Interpretive Information: <60 [...] | + + + + + | [facility] | And | [place], [place] | [phone] | | MEDICAL CENTER | Street | [address] | | + + + + + HEMOGLOBIN A1C, BLOOD (09/12/2016 10:49 AM PST) + +-------+ + + + | Component | Value | Ref Range | Performed | Pathologist | | | | | At | Signature | + +-------+ + + + | HEMOGLOBIN | 5.6 | % | [facility] | | | A1C | | | A MEDICAL | | | | | | CENTER | | + +-------+ + + + | ESTIMATED | 114 | mg/dL | [facility] | | | [place] | | | [...] per DCCT & ADA: | [facility] | | Normal Range: <6% | MEDICAL CENTER | | Good Control: <7% | | | Additional action suggested: >8% Non-Diabetic | | | Ranges: 4-6% [employer] Glycohemoglobin | | | Diabetic Ranges: Normal Range: | | | 4.0-6.0% Good Control: | | | 6.0-8.0% Poor Control: | | | >8.0% | | + + + + + + + + | Performing | Address | City/State/Zipcode | Phone Number | | Organization | | | | + + + + + | [facility] | And | [place] | [phone] | | MEDICAL CENTER | [facility] | [address] | | + + + + + [...]
--- OUTSIDE RECORDS SUMMARY | ~2020-05-06 | XMS | Encounter Summary ---
Demographics + + + | Address | [address]ERY | | | [place] [address] | + + + | Home Phone [...] [place] | | | | | [address] | | + + + + + Care Team Providers + +------+ + | Care Photographer Portrait Name | Role | Phone | + +------+ + | Violeta Parker DO | PCP | | + +------+ + Encounter Details +--------+--------+ + + + | Date | Type | Department | Care Team | Description | +--------+--------+ + + + | 08/28/ | Travel | | | | | [...]
--- OUTSIDE RECORDS SUMMARY | ~2020-05-06 | XMS | Encounter Summary ---
Demographics + + + | Address | [address] [place] | | | [place] [address] | + + + | Home Phone | | + + + | Preferred Language | Unknown | + + + | Marital Status | Single | + + + | Evangelical Affiliation | NRP | + + + | Race | White | + + + | Ethnic Group | Not or | + + + Author + + + | Author | [facility] | + + + | Organization | [facility] | + + + | Address | Unknown | + + + | Phone | Unavailable | + + + Support + + + + + | Name | Relationship | Address | Phone | + + + + + | Neda Santos | ECON | [place] | | | | | [address] | | + + + + + Care Team Providers + +------+ + | Care Panelboard Assembler Name | Role | Phone | + +------+ + | Iliana Parker DO | PCP | | + +------+ + Encounter Details +--------+ + + + + | Date | Type | Department | Care Team | Description | +--------+ + + + + | 02/10/ | Transcribe | [facility] | Transcribe | | | 2019 | Orders | [facility] [address] | Encounter, Provider, | | | | | [address] | [address] | | | | | [place] | [facility] [place] [address] | | | | | [address] | | | +--------+ + + + [...] | + + + | [address] [place] [address] | [facility] | | [place] [address] | [facility] | | [phone] Name: CHUCK SANTOS Phys: | RADIOLOGY | | ILIANA JAVED : 1975 Sex: M | | | CSN: [id number] MR# [id number] Exam Date: | | | 03/03/2019 EXAM: [...] Transcribed Date/Time: 03/03/2019 08:23 | | | Rehab Nursing Tech: FLUENCY | | + + + + + | Procedure Note | + + | Interface, Radiology Results - 03/03/2019 8:27 AM PDT [address] | | [address] [place] [address] | | Name: CHUCK SANTOS Phys: TELLOILIANA M : 1975 Sex: M | | CSN: [id number] MR# [id number] Exam Date: 03/03/2019 EXAM:US ABDOMEN LIMITED | [...] | | |Transcribed Date/Time: 03/03/2019 08:23 | |Rehab Nursing Tech: VAL | | | | | | [...]
--- OUTSIDE RECORDS SUMMARY | ~2020-05-06 | XMS | Encounter Summary ---
Demographics + + + | Address | [address] [place] | | | [place] [address] | + + + | Home Phone | | + + + | Preferred Language | Unknown | + + + | Marital Status | Single | + + + | Jainism Affiliation | NRP | + + + [...] [place] | | | | | [address] | | + + + + + Care Team Providers + +------+ + | Care Robotic Welding Operator Name | Role | Phone | [...] Closed | | Radiology | Diagnoses | [address] | [address] | | | | | Thoracic | DO Iliana | Scan [address] | | | | | aortic | [address] | | | | | aneurysm | [address] | [place] | | | | | without | [place], | [address] | | | | | rupture | [place] [address] | Phone: | | | | | (FORMERLY [facility]) | Phone: | [phone] | | | | | Procedures | [phone] | | | | | | CTA CHEST | Fax: | | | | | | WWO CONTRAST | [phone] | | +--------+--------+ + + + + Reason for Visit Diagnostic Testing (Routine) +--------+--------+ + + + + | Status | Reason | Specialty | Diagnoses / | Referred By | Referred To | | | | | Procedures | Contact | Contact | +--------+--------+ + + + + | Closed | | Radiology | Diagnoses | [place], | [address] | | | | | Thoracic | DO Iliana | Scan [address] | | | | | aortic | [address] | | | | | aneurysm | [address] | [address] | | | | | without | [place], | [address] | | | | | rupture | [place] [address] | Phone: | | | | | (FORMERLY [facility]) | Phone: | [phone] | | | | | Procedures | [phone] | | | | | | CTA CHEST | Fax: | | | | | | WWO CONTRAST | [phone] | | +--------+--------+ + + + + Encounter Details +--------+ + + + + | Date | Type | Department | Care Team | Description | +--------+ + + + + | 04/30/ | Hospital | Diagnostic Imaging | Iliana Parker, | | | 2019 | Encounter | at [facility] | DO [address] | | | | | [address] | [place] [address] | | | | | [place], [place] | [phone] | | | | | [address] | | | | | | [phone] | | | +--------+ + + + [...] + + + +---------+ + + | oxymetazoline 0.05 | Instill 2 sprays | 15 mL | 0 | //20 | | | % nasal | into each nostril | | | 19 | | | spray,non-aerosol | two times daily. Use | | | | | | | for only 3 days. | | | | | + + + +---------+ + + | promethazine 25 mg | | | 0 | 03/10/20 | | | oral tablet | | | | 19 | | + + + +---------+ + + | sodium chloride | Instill 2 sprays | 30 mL | 0 | /16/20 | | | 0.65 % nasal | into each nostril as | | | 19 | | | aerosol,sprayIndicat | needed. | | | | | | ions: nasal | Indications: stuffy | | | | | | congestion | nose | | | | | + + [...] | + +--------+ + + + | CTA CHEST WWO | Routin | 04/30/2019 | Thoracic aortic | Results for this | | CONTRAST | e | 9:05 AM | aneurysm without | procedure are in the | | | | PDT | rupture (HCC) | results section. | + +--------+ + + + | ORDERS OTHER | | 04/30/2019 | | Results for this | | | | 12:00 AM | | procedure are in the | | | | PDT | | results section. | + +--------+ + + + documented in this encounter Results CTA CHEST WWO CONTRAST (04/30/2019 9:05 AM PDT) + + | Specimen | + + | | + + + + + | Narrative | Performed At | + + + | [address] [place] [address] | [facility] | | [place] [address] | DEPARTMENT | | [phone] Name: CHUCK SANTOS Phys: | RADIOLOGY | | TELLOILIANA M : 1975 Sex: M | | | CSN: [id number] MR# [id number] Exam Date: | | | 04/30/2019 EXAM: CTA CHEST COMBINED CLINICAL HISTORY: | | | Thoracic aortic aneurysm without rupture COMPARISON: 05/07/2018 | | | TECHNIQUE: Axial CT images of the chest were obtained according to | | | a PE protocol after the uneventful administration of 75.0 ml of | | | Omnipaque-350 IV contrast. Coronal and sagittal MIP and multiplanar | | | reformations were obtained. Dose reduction techniques, including | | | automatic exposure control (AutomA and SmartmA), organ dose | | | modulation and adaptive statistical iterative reconstruction (ASiR) | | | were utilized. FINDINGS: Diagnostic quality: Satisfactory. | | | Pulmonary embolism: Limited evaluation secondary to suboptimal | | | opacification of the pulmonary arteries. Right heart strain: None. | | | Pulmonary arteries: Normal in caliber. Visualized lower neck: | | | Normal. Visualized thyroid: Normal. Pleura: No pleural | | | effusion, pleural thickening, or pneumothorax. Heart and great | | | vessels: There is no cardiomegaly. There is redemonstration of an | | | ascending aortic aneurysm measuring up to 4.4 cm, not significantly | | | changed compared to the prior exam. No evidence for rupture or | | | dissection. Lymph nodes: No pathologically enlarged mediastinal, | | | axillary, or hilar lymphadenopathy. Lung parenchyma: No | | | suspicious pulmonary nodule, mass or focal infiltrate. Central | | | airways: Patent. Chest wall: Normal. Bones: Diffuse | | | multilevel degenerative changes. Visualized upper abdomen: Normal. | | | IMPRESSION: Stable ascending thoracic aortic aneurysm measuring | | | up to 4.4 cm. No acute process in the chest. REPORT | | | SIGNED IN OTHER VENDOR SYSTEM 04/30/2019 Reported by: Allan | | | MD Felipa Electronically signed by: Allan Leo MD | | | Transcribed Date/Time: 04/30/2019 09:58 Coordinator Hotels: FLUENCY | | | | | + + + + + | Procedure Note | + + | Interface, Radiology Results - 04/30/2019 10:03 AM PDT [address] | | [address] [place] [address] | | Name: CHUCK SANTOS Phys: ILIANA JAVED : 1975 Sex: M | | CSN: [id number] MR# [id number] Exam Date: 04/30/2019 EXAM:CTA CHEST COMBINED | | CLINICAL HISTORY:Thoracic aortic aneurysm without rupture COMPARISON:05/07/2018 | | TECHNIQUE:Axial CT images of the chest were obtained according to a PE protocolafter the | | uneventful administration of 75.0 ml of Omnipaque-350 IVcontrast. Coronal and sagittal | | MIP and multiplanar reformations wereobtained. Dose reduction techniques, including | | automatic exposurecontrol (AutomA and SmartmA), organ dose modulation and | | adaptivestatistical iterative reconstruction (ASiR) were utilized. FINDINGS:Diagnostic | | quality: Satisfactory. Pulmonary embolism: Limited evaluation secondary to | | suboptimalopacification of the pulmonary arteries. Right heart strain: None. Pulmonary | | arteries: Normal in caliber. Visualized lower neck: Normal. Visualized thyroid: Normal. | | Pleura: No pleural effusion, pleural thickening, or pneumothorax. Heart and great | | vessels: There is no cardiomegaly. There isredemonstration of an ascending aortic | | aneurysm measuring up to 4.4cm, not significantly changed compared to the prior exam. | | Noevidence for rupture or dissection. Lymph nodes: No pathologically enlarged | | mediastinal, axillary, orhilar lymphadenopathy. Lung parenchyma: No suspicious pulmonary | | nodule, mass or focalinfiltrate. Central airways: Patent. Chest wall: Normal. Bones: | | Diffuse multilevel degenerative changes. Visualized upper abdomen: Normal. | | IMPRESSION:Stable ascending thoracic aortic aneurysm measuring up to 4.4 cm. Noacute | | process in the chest. REPORT SIGNED IN OTHER VENDOR SYSTEM 04/30/2019 Reported by: | | Allan Leo MD Electronically signed by: Allan Leo MD Transcribed | | Date/Time: 04/30/2019 09:58Transcriptionist: FLUENCY | |contrast. Coronal and sagittal MIP and multiplanar reformations were | |obtained. Dose reduction techniques, including automatic exposure | |control (AutomA and SmartmA), organ dose modulation and adaptive | |statistical iterative reconstruction (ASiR) were utilized. | | | |FINDINGS: | |Diagnostic quality: Satisfactory. | | | |Pulmonary embolism: Limited evaluation secondary to suboptimal | |opacification of the pulmonary arteries. | | | |Right heart strain: None. | | | |Pulmonary arteries: Normal in caliber. | | | |Visualized lower neck: Normal. | | | |Visualized thyroid: Normal. | | | |Pleura: No pleural effusion, pleural thickening, or pneumothorax. | | | |Heart and great vessels: There is no cardiomegaly. There is | |redemonstration of an ascending aortic aneurysm measuring up to 4.4 | |cm, not significantly changed compared to the prior exam. No | |evidence for rupture or dissection. | | | |Lymph nodes: No pathologically enlarged mediastinal, axillary, or | |hilar lymphadenopathy. | | | |Lung parenchyma: No suspicious pulmonary nodule, mass or focal | |infiltrate. | | | |Central airways: Patent. | | | |Chest wall: Normal. | | | |Bones: Diffuse multilevel degenerative changes. | | | |Visualized upper abdomen: Normal. | | | |IMPRESSION: | |Stable ascending thoracic aortic aneurysm measuring up to 4.4 cm. No | |acute process in the chest. | | | | | | REPORT SIGNED IN OTHER VENDOR SYSTEM 04/30/2019 | |Reported by: Allan Leo MD | | | |Electronically signed by: Allan Leo MD | | | |Transcribed Date/Time: 04/30/2019 09:58 | |Coordinator Hotels: FLUENCY | | | | | | | + + + +---------+ + + | Performing | Address | City/State/Zipcode | Phone Number | | Organization | | | | + +---------+ + + | [facility] | | | | | [facility]OLOGY | | | | + +---------+ + + ORDERS OTHER (04/30/2019 12:00 AM PDT) + + + | Narrative | Performed At | + + + | | | + + + documented in this encounter Visit Diagnoses + + | Diagnosis | + + | Thoracic aortic aneurysm without rupture (HCC) Thoracic aneurysm without mention of | | rupture | + + documented in this encounter Administered Medications + +--------+ +-------+------+ + | Medication Order | MAR | Action | Dose | Rate | Site | | | Action | Date | | | | + +--------+ +-------+------+ + | iohexol (OMNIPAQUE) 350 mg | Given | 04/30/20 | 75 mL | | Right AC | | iodine/mL injection 75 mL 75 mL, | | 19 9:09 | | | | | intravenous, PROCEDURE ONCE, 1 | | AM PDT | | | | | dose, [facility] 04/30/19 at 0930 | | | | | | + +--------+ +-------+------+ + + +---+ | | | + +---+ | iohexol (OMNIPAQUE) 350 mg | | | iodine/mL injection 1 dose, | | | Starting [facility] 04/30/19 at 0853, | | | Until [facility] 04/30/19 at 0909 | | + +---+ | | | + +---+ | NaCl 0.9 % (NS) solution 1 | | | dose, Starting [facility] 04/30/19 at | | | 0853, Until [facility] 04/30/19 at 0909 | | + +---+ | | | + +---+ + +---------+ +-------+---+ + | sodium chloride 0.9 % (NS) IV | New Bag | 04/30/20 | 60 mL | | Right AC | | infusion 100 mL, intravenous, | | 19 9:09 | | | | | ONCE, 1 dose, [facility] 04/30/19 at 1000 | | AM PDT | | | | + +---------+ +-------+---+ + +---+---+ | | | +---+---+ documented in this encounter"
--- OUTSIDE RECORDS SUMMARY | ~2020-05-06 | XMS | Encounter Summary ---
Demographics + + + | Address | [address] | | | [place] [address] | + + + | Home Phone | | + + + | Preferred Language | Unknown | + + + | Marital Status | Single | + + + | Voodoo Affiliation | NRP | + + + [...] [place] | | | | | [address] | | + + + + + Care Team Providers + +------+ + | Care Machine Shop Worker Name | Role | Phone | + +------+ + | Iliana Parker DO | PCP | | + +------+ + Encounter Details +--------+ + + + + | Date | Type | Department | Care Team | Description | +--------+ + + + + | 08/28/ | Hospital | Ultrasound at [facility] | Iliana Parker, | | | 2018 | Encounter | Hospital [address] | DO [address] | | | | | [place], | [place] [address] | | | | | [place] [address] | [phone] | | | | | [phone] | | | +--------+ + + + [...] daily. | | | | | | release(DR/EC) | | | | | | + + + +---------+ + + | oxymetazoline 0.05 | Instill 2 sprays | 15 mL | 0 | 04/14/20 | | | % nasal | into [...] sprays | 30 mL | 0 | 04/14/20 | | | 0.65 % nasal | [...] | + +--------+ + + + | US KIDNEY & BLADDER | Routin | 08/28/2019 | Kidney stone | Results for this | | | e | 7:47 AM | | procedure are in the | | | | PST | | results section. | + +--------+ + + + | ORDERS OTHER | | 08/28/2019 | | Results for this | | | | 12:00 AM | | procedure are in the | | | | PST | | results section. | + +--------+ + + + documented in this encounter Results US KIDNEY & BLADDER (08/28/2019 7:47 AM PST) + + | Specimen | + + | | + + + + + | Narrative | Performed At | + + + | [address] [place] [address] | [facility] | | [place] [address] | DEPARTMENT OF | | [phone] Name: CHUCK SANTOS Phys: | RADIOLOGY | | ILIANA JAVED : 1975 Sex: M | | | CSN: [id number] MR# [id number] Exam Date: | | | 08/28/2019 EXAM: RENAL AND BLADDER ULTRASOUND CLINICAL | | | HISTORY: Bilateral nephrolithiasis. COMPARISON: 03/11/2019 CT | | | abdomen and pelvis. TECHNIQUE: Multiple sonographic images of the | | | kidneys, urinary bladder, IVC, and abdominal aorta were obtained. | | | FINDINGS: Right kidney: Measures 9.4 cm in length. There is no | | | shadowing nephrolithiasis, hydronephrosis or mass. A measured | | | echogenic focus within the upper pole cortex of the right kidney, | | | likely represents the normal calyx. There is no definite | | | nephrolithiasis, though there is an area of twinkle artifact in the | | | upper pole. Left kidney: Measures 10.5 cm in length. There is no | | | shadowing nephrolithiasis, hydronephrosis or mass. There are 3 | | | areas of twinkle artifact without definite echogenic focus or | | | posterior acoustic shadowing. Urinary bladder: Normal. | | | Visualized IVC and abdominal aorta: Normal. Bladder jets: Both | | | visualized. IMPRESSION: No definite sonographic evidence of | | | nephrolithiasis. No hydronephrosis. For more definitive | | | evaluation of nephrolithiasis, noncontrast CT abdomen and pelvis is | | | recommended for further evaluation. REPORT SIGNED IN OTHER | | | VENDOR SYSTEM 08/28/2019 Reported by: WADE MARTÍNEZ MD | | | Electronically signed by: WADE MARTÍNEZ MD Transcribed | | | Date/Time: 08/28/2019 12:18 Grocery Carrier: VAL | | + + + + + | Procedure Note | + + | Interface, Radiology Results - 08/28/2019 12:26 PM PST [address] | | [address] [place] [address] | | Name: CHUCK SANTOS Phys: ILIANA JAVED : 1975 Sex: M | | CSN: [id number] MR# [id number] Exam Date: 08/28/2019 EXAM:RENAL AND BLADDER | | ULTRASOUND CLINICAL HISTORY:Bilateral nephrolithiasis. COMPARISON:03/11/2019 CT abdomen | | and pelvis. TECHNIQUE:Multiple sonographic images of the kidneys, urinary bladder, IVC, | | andabdominal aorta were obtained. FINDINGS:Right kidney: Measures 9.4 cm in length. | | There is no shadowingnephrolithiasis, hydronephrosis or mass. A measured echogenic | | focuswithin the upper pole cortex of the right kidney, likely representsthe normal | | calyx. There is no definite nephrolithiasis, though thereis an area of twinkle artifact | | in the upper pole. Left kidney: Measures 10.5 cm in length. There is no | | shadowingnephrolithiasis, hydronephrosis or mass. There are 3 areas oftwinkle artifact | | without definite echogenic focus or posterioracoustic shadowing. Urinary bladder: | | Normal. Visualized IVC and abdominal aorta: Normal. Bladder jets: Both visualized. | | IMPRESSION: No definite sonographic evidence of nephrolithiasis. Nohydronephrosis. For | | more definitive evaluation of nephrolithiasis,noncontrast CT abdomen and pelvis is | | recommended for furtherevaluation. REPORT SIGNED IN OTHER VENDOR SYSTEM 08/28/2019 | | Reported by: WADE MARTÍNEZ MD Electronically signed by: WADE MARTÍNEZ MD | | Transcribed Date/Time: 08/28/2019 12:18Transcriptionist: FLUENCY | |03/11/2019 CT abdomen and pelvis. | | | |TECHNIQUE: | |Multiple sonographic images of the kidneys, urinary bladder, IVC, and | |abdominal aorta were obtained. | | | |FINDINGS: | |Right kidney: Measures 9.4 cm in length. There is no shadowing | |nephrolithiasis, hydronephrosis or mass. A measured echogenic focus | |within the upper pole cortex of the right kidney, likely represents | |the normal calyx. There is no definite nephrolithiasis, though there | |is an area of twinkle artifact in the upper pole. | | | |Left kidney: Measures 10.5 cm in length. There is no shadowing | |nephrolithiasis, hydronephrosis or mass. There are 3 areas of | |twinkle artifact without definite echogenic focus or posterior | |acoustic shadowing. | | | |Urinary bladder: Normal. | | | |Visualized IVC and abdominal aorta: Normal. | | | |Bladder jets: Both visualized. | | | |IMPRESSION: | | | |No definite sonographic evidence of nephrolithiasis. No | |hydronephrosis. For more definitive evaluation of nephrolithiasis, | |noncontrast CT abdomen and pelvis is recommended for further | |evaluation. | | | | | | REPORT SIGNED IN OTHER VENDOR SYSTEM 08/28/2019 | |Reported by: WADE MARTÍNEZ MD | | | |Electronically signed by: WADE MARTÍNEZ MD | | | |Transcribed Date/Time: 08/28/2019 12:18 | |Grocery Carrier: FLUENCY | | | | | | | + + + +---------+ + + | Performing | Address | City/State/Zipcode | Phone Number | | Organization | | | | + +---------+ + + | [facility] | | | | | RADIOLOGY | | | | + +---------+ + + ORDERS OTHER (08/28/2019 12:00 AM PST) + + + | Narrative | Performed At | + + + | | | + + + documented in this encounter Visit Diagnoses + + | Diagnosis | + + | Kidney stone Calculus of kidney | + + documented in this encounter"
--- OUTSIDE RECORDS SUMMARY | ~2020-05-06 | XMS | Encounter Summary ---
Demographics + + + | Address | [address] | | | [place] [address] | + + + | Home Phone [...] [place] | | | | | [address] | | + + + + + Care Team Providers + +------+ + | Care Boiler Tender Name | Role | Phone | + +------+ + | Violeta Parker DO | PCP | | + +------+ + Encounter Details +--------+--------+ + + + | Date | Type | Department | Care Team | Description | +--------+--------+ + + + | 03/11/ | Travel | | | | | [...]
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
--- OUTSIDE RECORDS SUMMARY | ~2020-05-06 | XMS | Encounter Summary ---
Demographics + + + | Address | [address] | | | [place] [address] | + + + | Home Phone | | + + + | Preferred Language | Unknown | + + + | Marital Status | Single | + + + | Worship Affiliation | NRP | + + + [...] [place] | | | | | [address] | | + + + + + Care Team Providers + +------+ + | Care Resolute Professional Name | Role | Phone | + [...] The | | | | | [facility] [place], | [place], [place] | | | | | [place] [address] | [address] | | | | | [phone] | [phone] | | | | | | | [...]
--- OUTSIDE RECORDS SUMMARY | ~2020-05-06 | XMS | Encounter Summary ---
Demographics + + + | Address | [address] | | | [place] [address] | + + + | Home Phone [...] [place] | | | | | [address] | | + + + + + Care Team Providers + +------+ + | Care Childcare Center Director Name | Role | Phone | + +------+ + | Miguel A Peraza PA-C | PCP | | + +------+ + Reason for Visit + + + | Reason | Comments | + + + | Follow-up visit | Pt is here for [facility] f/u for low back pain. States that | | | the pain is still a 6. | + + + Encounter Details +--------+---------+ + + + | Date | Type | Department | Care Team | Description | +--------+---------+ + + + | 12/17/ | Office | [facility] | Miguel A Peraza PA-C | Low back strain, | | 2017 | Visit | Medicine [address] | subsequent encounter | | | | [address] [place], | [place], [place] | (Primary Dx) | | | | [place] [address] | [address] | | | | | [phone] | [phone] | | | | | | | [...] + + + | Blood Pressure | 138/88 | 12/17/2017 2:15 PM | | | | | PDT | | + + + + + | Pulse | 97 | 12/17/2017 2:15 PM | | | | | PDT | | + + + + + | Temperature | - | - | | + + + + + | Respiratory Rate | - | - | | + + + + + | Oxygen Saturation | 98% | 12/17/2017 2:15 PM | | | | | PDT | | + + + + + | Inhaled Oxygen | - | - | | | Concentration | | | | + + + + + | Weight | 85.3 kg (188 lb) | 12/17/2017 2:15 PM | | | | | PDT | | + + + + + | Height | 171.5 cm (5' 7.5") | 12/17/2017 2:15 PM | | | | | PDT | | + + + + + | Body Mass Index | 29.01 | 12/17/2017 2:15 PM | | | | | PDT | | + + + + + documented in this encounter Patient Instructions Patient Instructions Miguel A Peraza PA-C - 12/17/2017 2:00 PM PDT1. I recommend ibuprofen 6 00-800 mg every 6-8 hours as needed for low back pain. Make sure to take with food and plent y of water. 2. Continue muscle relaxers at night as prescribed 3. Use warm compresses to the area for 20 minutes 2-3 times daily 4. Perform back stretches as tolerated upon waking, in the middle of the day, and again bef ore bed to stay loose until you get into physical therapy 5. If problem persists for greater than 6-8 weeks, or worsens at any time, please return to clinic for evaluation 6. Avoid lifting heavy objects, twisting or bending until your are completely better documented in this encounter Progress Notes Miguel A Peraza PA-C - 12/17/2017 2:00 PM PDT Chief Complaint Patient presents with Follow-up visit Pt is here for [facility] f/u for low back pain. States that the pain is still a 6. Subjective HPI 42 y.o. male presents today for ER follow-up on back pain. He has a history of chronic back pain with episodic flares. This particular flare began last week when he was bending over and twisting loading firewoo d. No fall. No direct trauma. Pain radiates into his left buttocks which is typical when his p ain flares up. He denies bowel or bladder incontinence. He denies foot drop. He denies sensory or motor dysfunction of his left lower extremity. Has been doing better since in the ED. Thinks he popped something back into place. He has been taking tylenol. Taking muscle relaxer and amitriptyline at night, which helps him sleep better at night. Patient Active Problem List Diagnosis Cervical pain Left-sided low back pain with left-sided sciatica Left thigh pain Recurrent kidney stones BMI 31.0-31.9,adult Mixed hyperlipidemia Prediabetes Family history of pancreatic cancer Family history of colon cancer Carpal tunnel syndrome of left wrist History of adenomatous polyp of colon famotidine 40 mg oral tablet, Take 1 tablet by mouth once daily at bedtime. gabapentin 300 mg oral capsule, Take 2 capsules by mouth three times daily. tiZANidine 4 mg oral tablet, Take 1 tablet by mouth every six hours as needed. Max: 36 mg / day. Allergies Allergen Reactions Pineapple Anaphylaxis Bromelains Throat Swelling / Closing Ibuprofen Unknown Naproxen Bleeding Penicillins Throat Swelling / Closing I have reviewed the PMH, SH, FHX, MEDS, ALLERGIES and updated the computerized patient jose rd appropriately Review of Systems Constitutional: Negative for chills, diaphoresis, fever, malaise/fatigue and weight loss. Musculoskeletal: Positive for back pain and joint pain. Negative for falls, myalgias and ne ck pain. Skin: Negative for itching and rash. Neurological: Negative for dizziness, tingling, tremors, sensory change, speech change, foc al weakness, seizures, loss of consciousness, weakness and headaches. Objective BP 138/88 | Pulse 97 | Ht 1.715 m (5' 7.5") | Wt 85.3 kg (188 lb) | SpO2 98% | BMI 29.01 kg /(m^2) Physical Exam Constitutional: He is oriented to person, place, and time and well-developed, well-nourishe d, and in no distress. HENT: Head: Normocephalic and atraumatic. Eyes: Conjunctivae and EOM are normal. Pupils are equal, round, and reactive to light. Musculoskeletal: Lumbar back: He exhibits decreased range of motion, tenderness and pain. He exhibits n o bony tenderness, no swelling, no edema, no deformity, no laceration, no spasm and normal p ulse. TTP in left lumbosacral musculature. No midline tenderness. SLR negative. Neurological: He is alert and oriented to person, place, and time. He has normal motor skil ls, normal sensation, normal strength and normal reflexes. Gait normal. Reflex Scores: Patellar reflexes are 2+ on the right side and 2+ on the left side. Achilles reflexes are 2+ on the right side and 2+ on the left side. Assessment Mendez was seen today for follow-up visit. Diagnoses and all orders for this visit: Low back strain, subsequent encounter Comments: No red flag sxs. Reviewed stretches, NSAIDs for pain, amitriptyline HS, and tizanadine prn spasm. If sxs persist for 6 weeks or worsen at any time, he will RTC. May consider PT as nee ded. Return in about 6 weeks (around 01/28/2018), or if symptoms worsen or fail to improve, for lo w back strain. Signed, Miguel A Peraza PA-C [facility] Patient Instructions 1. I recommend ibuprofen 600-800 mg every 6-8 hours as needed for low back pain. Make sure to take with food and plenty of water. 2. Continue muscle relaxers at night as prescribed 3. Use warm compresses to the area for 20 minutes 2-3 times daily 4. Perform back stretches as tolerated upon waking, in the middle of the day, and again bef ore bed to stay loose until you get into physical therapy 5. If problem persists for greater than 6-8 weeks, or worsens at any time, please return to clinic for evaluation 6. Avoid lifting heavy objects, twisting or bending until your are completely better documented in this enc ounter Plan of Treatment Not on filedocumented as of this encounter Visit Diagnoses + + | Diagnosis | + + | Low back strain, subsequent encounter - Primary | + + documented in this encounter
--- OUTSIDE RECORDS SUMMARY | ~2020-05-06 | XMS | Encounter Summary ---
Demographics + + + | Address | [address]AL DEL[place]ERY | | | [place] [address] | + + + | Home Phone | | + + + | Preferred Language | Unknown | + + + | Marital Status | Single | + + + | Mandaeism Affiliation | NRP | + + + [...] [place] | | | | | [address] | | + + + + + Care Team Providers + +------+ + | Care Aerophysics Engineer Name | Role | Phone | + +------+ + | Violeta Parker DO | PCP | | + +------+ + Reason for Visit PROC - Outpatient Surgery (Routine) +--------+--------+ + + + + | Status | Reason | Specialty | Diagnoses / | Referred By | Referred To | | | | | Procedures | Contact | Contact | +--------+--------+ + + + + | Closed | | Surgery | Diagnoses | | Sandhya, | | | | | | Sandhya, | Paras Woodall, | | | | | Gastroesopha | Paras Woodall, | [address] | | | | | geal reflux | [address] | The | | | | | disease, | The | [place], [place] | | | | | esophagitis | [place], [place] | [address] | | | | | presence not | [phone] | Phone: | | | | | specified | Phone: | [phone] | | | | | Procedures | [phone] | Fax: | | | | | REQUEST TO | Fax: | [phone] | | | | | SURGERY | [phone] | | | | | | [facility] | | | | | | | [place] UPPER GI | | | | | | | ENDOSCOPY,DI | | | | | | | AGNOSIS [place] | | | | | | | UPPER GI | | | | | | | ENDOSCOPY,BI | | | | | | | OPSY [place] UP | | | | | | | GI | | | | | | | ENDOSCOPY,DI | | | | | | | LATN W GUIDE | | | | | | | EGD | | | +--------+--------+ + + + + Encounter Details +--------+ + + + + | Date | Type | Department | Care Team | Description | +--------+ + + + + | 08/18/ | Hospital | Endoscopy | Sandhya, | | | 2017 | Encounter | Department at [facility] | Paras Woodall MD [address] | | | | [facility] [address] | | | | | [place], | [place], [place] | | | | | [place] [address] | [address] | | | | | [phone] | [phone] | | | | | | | [...] + + + | Blood Pressure | 118/83 | 08/18/2018 12:40 PM | | | | | PST | | + + + + + | Pulse | 75 | 08/18/2018 12:40 PM | | | | | PST | | + + + + + | Temperature | 36.8 C (98.3 F) | 08/18/2018 11:17 AM | | | | | PST | | + + + + + | Respiratory Rate | 16 | 08/18/2018 12:40 PM | | | | | PST | | + + + + + | Oxygen Saturation | 96% | 08/18/2018 12:40 PM | | | | | PST | | + + + + + | Inhaled Oxygen | - | - | | | Concentration | | | | + + + + + | Weight | 84.4 kg (186 lb) | 08/18/2018 11:19 AM | | | | | PST | | + + + + + | Height | 162.6 cm (5' 4") | 08/18/2018 11:19 AM | | | | | PST | | + + + + + | Body Mass Index | 31.93 | 08/18/2018 11:19 AM | | | | | PST | | + + + + + documented in this encounter Discharge Instructions Instructions Ying Anguiano, MARGARET - 08/15/2018The medications you have received today for y our procedure will remain in your body for some time. You may experience dizziness, drowsine ss, amnesia, dry mouth and/or lightheadedness. Your sense of balance, and fine muscle contro l may be affected. Your reaction time will be slowed, making activities like driving dangero us. You may not recognize any of the changes. Therefore, to assure a safe and complete recov wilbur, we ask you to follow these strict instructions. 1. DO NOT DRIVE until tomorrow 2. DO NOT USE potentially DANGEROUS appliances or equipment (stove, lawnmower, garbage dis posal, iron, etc.) 3. Be aware of DIZZINESS. Move slowly, take your time. Sudden position changes can cause na usea. 4. DO NOT MAKE any IMPORTANT DECISIONS. You may change your mind tomorrow. 5. DO NOT DRINK ALCOHOLIC beverages or use recreational drugs. The combination of sedation drugs and alcohol/recreational drugs could be dangerous. 6.DISCUSS with your DOCTOR any questions or concerns you may have. In general, you should be completely recovered from these medications by tomorrow. Diet: Do not eat if there is any question of whether you feel nauseated or sick to your sto mach. Start with clear liquids, and then advance to your normal diet as tolerated. Drink ple nty of fluids. Activity: As tolerated, keeping in mind the above cautions. Notify physician or seek emergency treatment immediately if any of the these develop: Abdominal discomfort that worsens Vomiting blood Blood from rectum of more than 1 Tablespoon or black stools Fever (temperature greater than 101 degrees F.) Difficulty breathing [facility] [employer] [phone] documented in this encounter Medications at Time of [...] tablet by | 60 | 2 | 06/17/ | | | oral tablet | mouth [...] | + +--------+ + + + | PROCEDURE NOTE | Routin | 08/18/2018 | | Results for this | | | e | 11:55 AM | | procedure are in the | | | | PST | | results section. | + +--------+ + + + | SURGICAL PATHOLOGY | Routin | 08/18/2018 | | Results for this | | | e | 11:55 AM | | procedure are in the | | | | PST | | results section. | + +--------+ + + + | H. PYLORI CLOTEST | Routin | 08/18/2018 | | Results for this | | | e | 11:55 AM | | procedure are in the | | | | PST | | results section. | + +--------+ + + + | EGD | | 08/18/2018 | | Results for this | | | | 12:00 AM | | procedure are in the | | | | PST | | results section. | + +--------+ + + + documented in this encounter Results PROCEDURE NOTE (08/18/2018 11:55 AM PST) + + + | Narrative | Performed At | + + + | Paras Paul MD 08/18/2018 11:56 AM Date of | | | Procedure: 08/18/2018 Procedure: Esophagogastroduodenoscopy with | | | biopsy Surgeon: Sandhya Pre-Op Dx: GERD Post-Op Dx: | | | GERD, mild gastritis, duodenitis Findings: As above | | | Procedure in detail: The patient was brought to the endoscopy suite | | | and time-out was performed. Monitoring and sedation were performed. | | | The gastroscope was used to intubate the esophagus. The scope was | | | advanced under direct visualization. The mucosa of the esophagus | | | was normal, and the Z-line was intact. The stomach was entered | | | and insufflated with CO2 gas. The duodenum was intubated without | | | complication and appeared inflamed; biopsies were sent with cold | | | forceps. Some gastritis was noted and biopsies were taken with | | | cold forceps. A jameel test was sent. The scope was retroflexed and | | | the cardia was inspected and was normal. There was no hiatal hernia | | | noted. The scope was removed. The patient tolerated the procedure | | | well and was sent to recovery without any apparent complications. | | | Condition: Stable to recovery and then to home. PARAS Woodall | | | MD SANDHYA | | + + + H. PYLORI CLOTEST (08/18/2018 11:55 AM PST) + + + + + + | Component | Value | Ref Range | Performed | Pathologist | | | | | At | Signature | + + + + + + | CLOTEST | Negative | Negative | [facility] | | | FINAL | | | [facility] | | | RESULT | | | CENTER | | + + + + + + + + | Specimen | + + | Biopsy - Gastric | + + + + + + + | Performing | Address | City/State/Zipcode | Phone Number | | Organization | | | | + + + + + | [facility] | [address] | [place], [place] | [phone] | | [facility] | [facility] | [address] | | + + + + + SURGICAL PATHOLOGY (08/18/2018 11:55 AM PST) + + + + + + | Component | Value | Ref Range | Performed | Pathologist | | | | | At | Signature | + + + + + + | Final | A. Stomach, antrum, | | [facility] | Electronically | | Pathologic | biopsy: - Mild chronic | | [facility] | signed by Мария | | Diagnosis | gastritisB. Small | | CENTER | A MD Blank | | | intestine, duodenum, | | | on 08/19/2018 | | | biopsy: - Fragments of | | | at 10:24 AM | | | unremarkable duodenal | | | | | | mucosa Case seen | | | | | | by:Мария Parson M.D. | | | | | | CPT Code(s):31708 x 2 | | | | | |CPT Code(s): | | | | | |52369 x 2 | | | | + + + + + + | Gross | The specimen is received | | [facility] | | | Description | in formalin in two | | [facility] | | | | containers labeled with | | CENTER | | | | the patient's name, MRN | | | | | | and .Container 1 | | | | | | further labeled "antrum" | | | | | | consists of 3, 1-3 mm | | | | | | matson curled fragments, | | | | | | submitted entirely in | | | | | | cassette A.Container 2 | | | | | | further labeled | | | | | | "duodenum" consists of | | | | | | 2, 2-3 mm matson slightly | | | | | | fibrillary mucosal | | | | | | tissue fragments which | | | | | | are submitted entirely | | | | | | in cassette B. | | | | + + + + + + + + | Specimen | + + | Tissue - Antrum | + + | Tissue - Duodenal | | structure (body | | structure) | + + + + + + + | Performing | Address | City/State/Zipcode | Phone Number | | Organization | | | | + + + + + | [facility] | [address] | [place] | [phone] | | [facility] | [place] | [address] | | + + + + + EGD (08/18/2018 12:00 AM PST) + + + | Narrative | Performed At | + + + | | | + + + documented in this encounter Visit Diagnoses Not on filedocumented in this encounter Administered Medications + +--------+ +-------+------+------+ | Medication Order | MAR | Action | Dose | Rate | Site | | | Action | Date | | | | + +--------+ +-------+------+------+ | dexamethasone (DECADRON) | Given | 08/18/20 | 10 mg | | | | injection 10 mg 10 mg, | | 18 11:24 | | | | | intravenous, PROCEDURE PRN, 1 | | AM PST | | | | | dose, Starting 08/18/18 at | | | | | | | 1112, Until Sat08/18/18 at 1124, | | | | | | | Use ondansetron first. May use | | | | | | | dexamethasone (Decadron) PRN for | | | | | | | nausea/vomiting not relieved by | | | | | | | ondansetron. | | | | | | + +--------+ +-------+------+------+ + +---+ | | | + +---+ | dexamethasone (DECADRON) | | | injection 1 dose, Starting Mon | | | 08/18/18 at 1113, Until Mon | | | 08/18/18 at 1124 | | + +---+ | | | + +---+ + +-------+ +--------+---+---+ | fentaNYL (SUBLIMAZE) injection | Given | 08/18/20 | 25 mcg | | | | 25-150 mcg 25-150 mcg, | | 18 11:51 | | | | | intravenous, INTRAPROCEDURE PRN, | | AM PST | | | | | Starting Sat08/18/18 at 1112, | | | | | | | Until Sat08/19/18 at 0623, | | | | | | | sedation/analgesia | | | | | | + +-------+ +--------+---+---+ +---+---+ | | | +---+---+ + +-------+ +-------+---+---+ | ketamine (KETALAR) injection | Given | 08/18/20 | 30 mg | | | | 20-200 mg 20-200 mg, | | 18 11:51 | | | | | intravenous, INTRAPROCEDURE PRN, | | AM PST | | | | | Starting Sat08/18/18 at 1112, | | | | | | | Until Sat08/19/18 at 0623, | | | | | | | sedation | | | | | | + +-------+ +-------+---+---+ +---+---+ | | | +---+---+ + +-------+ +------+---+---+ | midazolam (PF) (VERSED) | Given | 08/18/20 | 3 mg | | | | injection 1-10 mg 1-10 mg, | | 18 11:51 | | | | | intravenous, INTRAPROCEDURE PRN, | | AM PST | | | | | Starting Sat08/18/18 at 1112, | | | | | | | Until Sat08/19/18 at 0623, | | | | | | | sedation | | | | | | + +-------+ +------+---+---+ + +---+ | | | + +---+ | NaCl 0.9 % (NS) solution 1 | | | dose, Starting Sat08/18/18 at | | | 1101, Until Sat08/18/18 at 1124 | | + +---+ | | | + +---+ + +-------+ +------+---+---+ | ondansetron (ZOFRAN) injection | Given | 08/18/20 | 4 mg | | | | 4-8 mg 4-8 mg, intravenous, | | 18 11:23 | | | | | NEEDED, Starting Sat08/18/18 at | | AM PST | | | | | 1112, Until Sat08/19/18 at 0623, | | | | | | | May repeat x1 after 15 minutes | | | | | | | for a maximum dose of 8mg | | | | | | + +-------+ +------+---+---+ + +---+ | | | + +---+ | ondansetron (ZOFRAN) injection | | | 1 dose, Starting Sat08/18/18 at | | | 1113, Until Sat08/18/18 at 1123 | | + +---+ | | | + +---+ + +-------+ +------+---+---+ | ondansetron ODT (ZOFRAN ODT) | Given | 08/18/20 | 4 mg | | | | tablet 4-8 mg 4-8 mg, oral, | | 18 11:23 | | | | | NEEDED, Starting Sat08/18/18 at | | AM PST | | | | | 1112, Until Sat08/19/18 at 0623, | | | | | | | May repeat x1 after 15 minutes | | | | | | | for a maximum dose of 8mg | | | | | | + +-------+ +------+---+---+ + +---+ | | | + +---+ | ondansetron ODT (ZOFRAN ODT) | | | tablet 1 dose, Starting Mon | | | 08/18/18 at 1101, Until Mon | | | 08/18/18 at 1123 | | + +---+ | | | + +---+ + +---------+ +-------+-------+---+ | sodium chloride 0.9 % (NS) IV | New Bag | 08/18/20 | 300 | 300 | | | infusion 300 mL/hr, intravenous, | | 18 11:24 | mL/hr | mL/hr | | | CONTINUOUS, Starting Mon | | AM PST | | | | | 08/18/18 at 1115, Until Sat | | | | | | | 08/19/18 at 0623 | | | | | | + +---------+ +-------+-------+---+ +---+---+ | | | +---+---+ documented in this encounter
--- OUTSIDE RECORDS SUMMARY | ~2020-05-06 | XMS | Encounter Summary ---
Demographics + + + | Address | [place] | | | [place] [address] | + + + | Home Phone [...] [place] | | | | | [address] | | + + + + + Care Team Providers + +------+ + | Care Director Of Cardiac Rehabilitation Name | Role | Phone | + +------+ + | Viloeta Parker DO | PCP | | + +------+ + Encounter Details +--------+--------+ + + + | Date | Type | Department | Care Team | Description | +--------+--------+ + + + | 03/20/ | Travel | | | | | [...]
--- OUTSIDE RECORDS SUMMARY | ~2020-05-06 | XMS | Encounter Summary ---
Demographics + + + | Address | [place] | | | [place] [address] | + + + | Home Phone [...] [place] | | | | | [address] | | + + + + + Care Team Providers + +------+ + | Care Siebel Solution Architect Name | Role | Phone | + +------+ + | Violeta Parker DO | PCP | | + +------+ + Encounter Details +--------+ + + + + | Date | Type | Department | Care Team | Description | +--------+ + + + + | 02/13/ | Document-Sc | [facility] | [place], | | | 2019 | christopher | [facility] [address] | Angel Woodall MD [address] | | | | | [address] | [address] | | | | | [place], [place] | [place], [place] | | | | | [address] | [address] | | | | | [phone] | [phone] | | | | | | | [...]
--- OUTSIDE RECORDS SUMMARY | ~2020-05-06 | XMS | Encounter Summary ---
Demographics + + + | Address | [place] | | | [place] [address] | + + + | Home Phone | | + + + | Preferred Language | Unknown | + + + | Marital Status | Single | + + + | Roman Catholic Affiliation | NRP | + + + [...] [place] | | | | | [address] | | + + + + + Care Team Providers + +------+ + | Care Care Navigator Name | Role | Phone | + [...]
--- OUTSIDE RECORDS SUMMARY | ~2020-05-06 | XMS | Encounter Summary ---
Demographics + + + | Address | [address] | | | [place] [address] | + + + | Home Phone [...] Author + + + | Author | [facility] | + + + | Organization | [facility] | + + + | Address | Unknown | + + + | Phone | Unavailable | + + + Support + + + + + | Name | Relationship | Address | Phone | + + + + + | Neda Castañeda | ECON | [place] | | | | | [address] | | + + + + + Care Team Providers + +------+ + | Care Archives Specialist Name | Role | Phone | + +------+ + | Violeta Parker DO | PCP | | + +------+ + Reason for Referral PROC - Outpatient Surgery (Routine) +--------+--------+ + + + + | Status | Reason | Specialty | Diagnoses / | Referred By | Referred To | | | | | Procedures | Contact | Contact | +--------+--------+ + + + + | Closed | | Surgery | Diagnoses | | Humberto, | | | | | | [place], | Angel Woodall, | | | | | Gastroesopha | Angel Woodall, | [address] | | | | | geal reflux | [address] | The | | | | | disease, | The | [place], [place] | | | | | esophagitis | [place], [place] | [address] | | | | | presence not | [address] | Phone: | | | | | specified | Phone: | [phone] | | | | | Procedures | [phone] | Fax: | | | | | REQUEST TO | Fax: | [phone] | | | | | SURGERY | [phone] | | | | | | SPEEDOMETER MECHANIC | | | | | | | [place] UPPER GI | | | | | | | ENDOSCOPY,DI | | | | | | | AGNOSIS [place] | | | | | | | UPPER GI | | | | | | | ENDOSCOPY,BI | | | | | | | OPSY [place] UP | | | | | | | GI | | | | | | | ENDOSCOPY,DI | | | | | | | LATN W GUIDE | | | | | | | EGD | | | +--------+--------+ + + + + Reason for Visit + + + | Reason | Comments | + + + | Consultation | GERD, with esophagitis | + + + Consultation (Routine) +--------+--------+ + + + + | Status | Reason | Specialty | Diagnoses / | Referred By | Referred To | | | | | Procedures | Contact | Contact | +--------+--------+ + + + + | Closed | | Surgery | Diagnoses | Elena | Analy Gen | | | | | GERD | DO Violeta | Surg Mob | | | | | (gastroesoph | [address] | | | | | ageal reflux | [address] | St [address] | | | | | disease) | [place], | [place] | | | | | | [place] [address] | [address] | | | | | | Phone: | Phone: | | | | | | [phone] | [phone] | | | | | | Fax: | Fax: | | | | | | [phone] | [phone] | +--------+--------+ + + + + Encounter Details +--------+---------+ + + + | Date | Type | Department | Care Team | Description | +--------+---------+ + + + | 08/07/ | Office | [facility] | Humberto, | Gastroesophageal | | 2018 | Visit | Surgery Clinic [address] | Angel Woodall MD [address] | reflux disease, | | | | [address] | E The | esophagitis presence | | | | [place], [place] | [place], [place] | not specified | | | | [address] | [address] | (Primary Dx) | | | | [phone] | [phone] | | | | | | | [...] + + + | Blood Pressure | 99/63 | 08/07/2018 11:16 AM | | | | | PST | | + + + + + | Pulse | 53 | 08/07/2018 11:16 AM | | | | | PST [...] + + + + | Weight | 84.6 kg (186 lb 8 | 08/07/2018 11:16 AM | | | | oz) | PST | | + + + + + | Height | - | - | | + + + + + | Body Mass Index | 32.01 | 03/12/2018 2:30 PM | | | | | PDT | | + + + + + documented in this encounter Patient Instructions Patient Instructions Blanca Britt Magalie - 08/07/2018 11:15 AM PSTFormatting of this note migh t be different from the original. Upper GI Endoscopy: Before Your Procedure What is an upper GI endoscopy? An upper gastrointestinal (or GI) endoscopy is a test that allows your doctor to look at th e inside of your esophagus, stomach, and the first part of your small intestine, called the duodenum. The esophagus is the tube that carries food to your stomach. The doctor uses a thi n, lighted tube that bends. It is called an endoscope, or scope. The doctor puts the tip of the scope in your mouth and gently moves it down your throat. Th e scope is a flexible video camera. The doctor looks at a monitor (like a TV set or a [email or web address] er screen) as he or she moves the scope. A doctor may do this test, which is also called a p rocedure, to look for ulcers, tumors, infection, or bleeding. It also can be used to look fo r signs of acid backing up into your esophagus. This is called gastroesophageal reflux disea se, or GERD. The doctor can use the scope to take a sample of tissue for study (a biopsy). T he doctor also can use the scope to take out growths or stop bleeding. Follow-up care is a avery part of your treatment and safety. Be sure to make and go to all ap pointments, and call your doctor if you are having problems. It's also a good idea to know y our test results and keep a list of the medicines you take. What happens before the procedure? Preparing for the procedure Understand exactly what procedure is planned, along with the risks, benefits, and oth er options. Tell your doctors ALL the medicines, vitamins, supplements, and herbal remedies you elsie e. Some of these can increase the risk of bleeding or interact with anesthesia. If you take blood thinners, such as warfarin (Coumadin), clopidogrel (Plavix), or asp irin, be sure to talk to your doctor. He or she will tell you if you should stop taking thes e medicines before your procedure. Make sure that you understand exactly what your doctor wa nts you to do. Your doctor will tell you which medicines to take or stop before your procedure. You may need to stop taking certain medicines a week or more before the procedure. So talk to yo doctor as soon as you can. If you have an advance directive, let your doctor know. It may include a living will and a durable power of civil rights attorney for health care. Bring a copy to the hospital. If you don't have one, you may want to prepare one. It lets your doctor and loved ones know your health c are wishes. Doctors advise that everyone prepare these papers before any type of surgery or procedure. Procedures can be stressful. This information will help you understand what you can expect. And it will help you safely prepare for your procedure. What happens on the day of the procedure? Follow the instructions exactly about when to stop eating and drinking. If you don't, y our procedure may be canceled. If your doctor told you to take your medicines on the day of the procedure, take them with only a sip of water. Take a bath or shower before you come in for your procedure. Do not apply lotions, pe rfumes, deodorants, or nail slovak. Take off all jewelry and piercings. And take out contact lenses, if you wear them. At the hospital or surgery center Bring a picture ID. The test may take 15 to 30 minutes. The doctor may spray medicine on the back of your throat to numb it. You also will ge t medicine to prevent pain and to relax you. You will lie on your left side. The doctor will put the scope in your mouth and towar d the back of your throat. The doctor will tell you when to swallow. This helps the scope mo ve down your throat. You will be able to breathe normally. The doctor will move the scope do wn your esophagus into your stomach. The doctor also may look at the duodenum. If your doctor wants to take a sample of tissue for a biopsy, he or she may use small surgical tools, which are put into the scope, to cut off some tissue. You will not feel a b iopsy, if one is taken. The doctor also can use the tools to stop bleeding or to do other tr eatments, if needed. You will stay at the hospital or surgery center for 1 to 2 hours until the medicine y ou were given wears off. Going home Be sure you have someone to drive you home. Anesthesia and pain medicine make it unsafe for you to drive. You will be given more specific instructions about recovering from your procedure. Th ey will cover things like diet, wound care, follow-up care, driving, and getting back to you r normal routine. When should you call your doctor? You have questions or concerns. You don't understand how to prepare for your procedure. You become ill before the procedure (such as fever, flu, or a cold). You need to reschedule or have changed your mind about having the procedure. Where can you learn more? To learn more about "Upper GI Endoscopy: Before Your Procedure", log into your [employer] acco unt at [email or web address]. You can enter P790 in the "[employer]" search box. Not on [employer]? Review the [employer] System[employer]art section of your After Visit Summary for directions on booker cardoza to sign up. Current as of: February 08, 2017 Content Version: 11.7 [id number] [employer]. Care instructions adapted under license by [facility] [place]. If you have questions about a medical condition or this instr uction, always ask your healthcare professional. [employer] disclaims any nina anty or liability for your use of this information. documented in this encounter Progress Notes Angel Paul MD - 08/07/2018 11:15 AM PSTFormatting of this note might be differe nt from the original. Chief Complaint: Chief Complaint Patient presents with Consultation GERD, with esophagitis History of Present Illness: 43-year-old man with a history of GERD presents for evaluation. He has a family history of colon cancer and has had adenomatous polyps removed, last in 2014. He is due for another ar ope in 2 years. He has vomiting nearly every day. He also reports epigastric pain and hear tburn. He has not had an EGD in the past. Past Medical History Past Medical History: Diagnosis [...] spine surgery 01/22/2012 anterior cervical discectomy C6-C7 [facility] Laminotomy of cervical vertebra with nerve root decompression 01/22/2012 Vasectomy 2009 Colonoscopy with biopsy 11/19/2014 Appendectomy 1998 Interbody placement of biomechanical device (alana-c) 01/22/2012 Medication List Current Outpatient Prescriptions: atorvastatin 40 mg oral tablet, Take 1 tablet by mouth on ce daily. Indications: hypercholesterolemia, Disp: 90 tablet, Rfl: 1 famotidine 40 mg oral tablet, Take 1 tablet by mouth once daily at bedtime., Disp: 30 table t, Rfl: 5 gabapentin 300 mg oral capsule, Take 2 capsules by mouth three times daily., Disp: 540 caps ule, Rfl: 1 HYDROcodone-acetaminophen 5-325 mg oral tablet, Take 1-2 tablets by mouth every six hours a s needed for severe pain. Not to exceed 3250 mg of acetaminophen from all products per 24 ho ur period. Do not drive on this medication, Disp: 20 tablet, Rfl: 0 omeprazole 40 mg oral capsule,delayed release(DR/EC), Take 40 mg by mouth once daily., Disp : , Rfl: promethazine 25 mg oral tablet, Take 1 tablet by mouth four times daily as needed for nause a/vomiting., Disp: 20 tablet, Rfl: 0 tiZANidine 4 mg oral tablet, Take 1 tablet by mouth every six hours as needed. Max: 36 mg / day., Disp: 60 tablet, Rfl: 2 triamcinolone acetonide 0.025 % topical cream, apply topically to affected area twice a day for 14 days, Disp: , Rfl: 0 Allergy List Allergies Allergen Reactions Pineapple Anaphylaxis [...] file Immunizations Immunization History Administered Date(s) Administered Influenza, injectable, quadrivalent, preservative free (IIV4) 06/21/2016, 09/12/2017 Influenza, seasonal, injectable, preservative free (IIV3) 10/11/2014 Td (adult), 2 Lf tetanus toxoid, preservative free, adsorbed 09/30/2010 Tdap 12/20/2017 Varicella 07/05/2016, 08/02/2016 Review of Systems Review of Systems Constitutional: Negative for fever, malaise/fatigue and weight loss. HENT: Negative for congestion. Respiratory: Negative for shortness of breath and wheezing. Cardiovascular: Negative for chest pain. Gastrointestinal: Positive for diarrhea, heartburn, nausea and vomiting. Negative for abdom inal pain, blood in stool, constipation and melena. Musculoskeletal: Negative for joint pain. Neurological: Negative for dizziness, weakness and headaches. Endo/Heme/Allergies: Does not bruise/bleed easily. Psychiatric/Behavioral: Negative for depression. The patient is not nervous/anxious. Vitals BP 99/63 | Pulse 53 | Wt 84.6 kg (186 lb 8 oz) | BMI 32.01 kg/(m^2) Physical Examination Gen- NAD JOSEPH- GAGE, MMM Resp- CTA B CV- RRR Abd- soft NTND Assessment/Plan Mendez was seen today for consultation. Diagnoses and all orders for this visit: Gastroesophageal reflux disease, esophagitis presence not specified - REQUEST TO VICE PRESIDENT PAYMENT 43-year-old man with a history of GERD and likely esophagitis. We will plan an EGD. The p atient was counseled on the indications, benefits, and risks of the procedure. He was provid ed a handout all questions were answered. No follow-up information. documented in t his encounter Plan of Treatment Not on filedocumented as of this encounter Visit Diagnoses + + | Diagnosis | + + | Gastroesophageal reflux disease, esophagitis presence not specified - Primary | + + documented in this encounter
--- OUTSIDE RECORDS SUMMARY | ~2020-05-06 | XMS | Encounter Summary ---
Demographics + + + | Address | [address] | | | [place] [address] | + + + | Home Phone [...] [place] | | | | | [address] | | + + + + + Care Team Providers + +------+ + | Care Machine Operator Picker Name | Role | Phone | + +------+ + | Violeta Parker DO | PCP | | + +------+ + Encounter Details +--------+ + + + + | Date | Type | Department | Care Team | Description | +--------+ + + + + | 08/14/ | Document-Sc | Laboratory at | Transcribe | | | 2019 | anned | [facility] | Encounter, Provider, | | | | | Center [address] | [address] | | | | | St [place] | [place] [address] | | | | | [address] | | | | | | [phone] | | | +--------+ + + + [...]
--- OUTSIDE RECORDS SUMMARY | ~2020-05-06 | XMS | Encounter Summary ---
Demographics + + + | Address | [address] | | | [place] [address] | + + + | Home Phone [...] Author + + + | Author | [facility] | + + + | Organization | [facility] | + + + | Address | Unknown | + + + | Phone | Unavailable | + + + Support + + + + + | Name | Relationship | Address | Phone | + + + + + | Neda Santos | ECON | [place] | | | | | [address] | | + + + + + Care Team Providers + +------+ + | Care Wedding Transportation Driver Name | Role | Phone | [...] | | | | | without | [place], | [address] | | | | | rupture | [place] [address] | Phone: | | | | | ([facility]) | Phone: | [phone] | | | | | Procedures | [phone] | | | | | | CTA CHEST | Fax: | | | | | | WWO CONTRAST | [phone] | | +--------+--------+ + + + + Encounter Details +--------+ + + + + | Date | Type | Department | Care Team | Description | +--------+ + + + + | 03/24/ | Transcribe | [facility] | Iliana Parker, | | | 2019 | Orders | [facility] [address] | DO [address] | | | | | [address] | [place] [address] | | | | | [place] | [phone] | | | | | [address] | | | +--------+ + + + [...] on filedocumented as of this encounter Results CTA CHEST WWO CONTRAST (04/30/2019 9:05 AM PDT) + + | Specimen | + + | | + + + + + | Narrative | Performed At | + + + | [address] [place] [address] | [facility] | | [place] [address] | [facility] | | [phone] Name: CHUCK SANTOS Phys: | RADIOLOGY | | TELLOILIANA M : 1975 Sex: M | | | CSN: [id number] MR# [id number] Exam Date: | | | 04/30/2019 EXAM: [...] | | | Transcribed Date/Time: 04/30/2019 09:58 Director Information: FLUENCY | | | | | + + + + + | Procedure Note | + + | Interface, Radiology Results - 04/30/2019 10:03 AM PDT [address] | | [address] [place] [address] | | Name: CHUCK SANTOS Phys: ILIANA JAVED : 1975 Sex: M | | CSN: [id number] MR# [id number] Exam Date: 04/30/2019 EXAM:CTA CHEST COMBINED | [...] | | |Transcribed Date/Time: 04/30/2019 09:58 | |Director Information: FLUENCY | | | | | | [...]
--- OUTSIDE RECORDS SUMMARY | ~2020-05-06 | XMS | Encounter Summary ---
Demographics + + + | Address | [address] | | | [place] [address] | + + + | Home Phone | | + + + | Preferred Language | Unknown | + + + | Marital Status | Single | + + + | Scientologist Affiliation | NRP | + + + | Race | White | + + + | Ethnic Group | Not or | + + + Author + + + | Author | [facility] | + + + | Organization | [facility] | + + + | Address | Unknown | + + + | Phone | Unavailable | + + + Support + + + + + | Name | Relationship | Address | Phone | + + + + + | Neda Castañeda | ECON | [place] | | | | | [address] | | + + + + + Care Team Providers + +------+ + | Care Voip Engineer Name | Role | Phone | + +------+ + | Herbert Marie MD,MPH | PCP | Unavailable | + +------+ + Reason for Visit + + + | Reason | Comments | + + + | Refill Request | [place] | + + + Encounter Details +--------+--------+ + + + | Date | Type | Department | Care Team | Description | +--------+--------+ + + + | 11/09/ | Refill | [facility] | Herbert Marie, | Refill Request | | 2017 | | Medicine [address] | [facility] | ([place]) | | | | [address] [place], | | | | | | [place] [address] | | | | | | [phone] | | | +--------+--------+ + + + [...] + | Diagnosis | + + | Left-sided low back pain with left-sided sciatica, unspecified chronicity | + + documented in this encounter"
--- OUTSIDE RECORDS SUMMARY | ~2020-05-06 | XMS | Encounter Summary ---
Demographics + + + | Address | [address] | | | [place] [address] | + + + | Home Phone | | + + + | Preferred Language | Unknown | + + + | Marital Status | Single | + + + | Muslim Affiliation | NRP | + + + [...] [place] | | | | | [address] | | + + + + + Care Team Providers + +------+ + | Care Bunker Worker Name | Role | Phone | + +------+ + | Violeta Parker DO | PCP | | + +------+ + Encounter Details +--------+--------+ + + + | Date | Type | Department | Care Team | Description | +--------+--------+ + + + | 08/06/ | Travel | | | | | [...]
--- OUTSIDE RECORDS SUMMARY | ~2020-05-06 | XMS | Encounter Summary ---
Demographics + + + | Address | [address] | | | [place] [address] | + + + | Home Phone | | + + + | Preferred Language | Unknown | + + + | Marital Status | Single | + + + | Pentecostal Affiliation | NRP | + + + [...] [place] | | | | | [address] | | + + + + + Care Team Providers + +------+ + | Care Health Records Technology Teacher Name | Role | Phone | + +------+ + | Miguel A Peraza PA-C | PCP | | + +------+ + Encounter Details +--------+ + + + + | Date | Type | Department | Care Team | Description | +--------+ + + + + | 07/01/ | Document-Sc | [facility] | Miguel A Peraza PA-C | | | 2018 | anned | Medicine [address] | [address] | | | | | [address] [place], | [place] | | | | | [place] [address] | [address] | | | | | [phone] | [phone] | | | | | | | [...]
--- OUTSIDE RECORDS SUMMARY | ~2020-05-06 | XMS | Encounter Summary ---
Demographics + + + | Address | [address] | | | [place] [address] | + + + | Home Phone | | + + + | Preferred Language | Unknown | + + + | Marital Status | Single | + + + | Mormonism Affiliation | NRP | + + + | Race | White | + + + | Ethnic Group | Not or | + + + Author + + + | Author | [facility] | + + + | Organization | [facility] | + + + | Address | Unknown | + + + | Phone | Unavailable | + + + Support + + + + + | Name | Relationship | Address | Phone | + + + + + | Neda Castañeda | ECON | [place] | | | | | [address] | | + + + + + Care Team Providers + +------+ + | Care Advance Scout Name | Role | Phone | + +------+ + | Herbert Marie MD,MPH | PCP | Unavailable | + +------+ + Encounter Details +--------+ + + + + | Date | Type | Department | Care Team | Description | +--------+ + + + + | 04/20/ | Document-Sc | [facility] | Herbert Marie, | | | 2016 | anned | Medicine [address] | ,[facility] | | | | | [address] [place], | | | | | | [place] [address] | | | | | | [phone] | | | +--------+ + + + [...]
--- OUTSIDE RECORDS SUMMARY | ~2020-05-06 | XMS | Encounter Summary ---
Demographics + + + | Address | [address] | | | [place] [address] | + + + | Home Phone [...] Author + + + | Author | [facility] | + + + | Organization | [facility] | + + + | Address | Unknown | + + + | Phone | Unavailable | + + + Support + + + + + | Name | Relationship | Address | Phone | + + + + + | Neda Castañeda | ECON | [place] | | | | | [address] | | + + + + + Care Team Providers + +------+ + | Care Extrusion Press Supervisor Name | Role | Phone | + +------+ + | Violeta Parker DO | PCP | | + +------+ + Encounter Details +--------+ + + + + | Date | Type | Department | Care Team | Description | +--------+ + + + + | 08/25/ | Telephone | Surgical Services | [place], | | | 2017 | | [facility] | Angel Woodall MD [address] | | | | | [address] | [address] | | | | | [place] | [place] | | | | | [address] | [address] | | | | | [phone] | [phone] | | | | | | | [...]
--- OUTSIDE RECORDS SUMMARY | ~2020-05-06 | XMS | Encounter Summary ---
Demographics + + + | Address | [address] | | | [place] [address] | + + + | Home Phone [...] + + + | Author | [facility] | + + + | Organization | [facility] | + + + | Address | Unknown | + + + | Phone | Unavailable | + + + Support + + + + + | Name | Relationship | Address | Phone | + + + + + | Neda Castañeda | ECON | [place] | | | | | [address] | | + + + + + Care Team Providers + +------+ + | Care Hose Tester Name | Role | Phone | + +------+ + | Violeta Parker DO | PCP | | + +------+ + Reason for Referral Consultation (Routine) + +--------+ + + + + | Status | Reason | Specialty | Diagnoses / | Referred By | Referred To | | | | | Procedures | Contact | Contact | + +--------+ + + + + | Authorized | | Pain | Diagnoses | Amanuel, | | | | | Management | Cervical | MD Teo | | | | | | radiculopath | [address] | | | | | | y | Avenue | | | | | | Procedures | [place], [place] | | | | | | CONSULT TO | [address] | | | | | | PAIN | Phone: | | | | | | MANAGEMENT | [phone] | | | | | | | Fax: | | | | | | | [phone] | | + +--------+ + + + + Reason for Visit [...] + + + | Closed | | Neurological | Diagnoses | Elena | Amanuel, | | | | Surgery | DDD | DO Violeta | MD Teo | | | | | (degenerativ | [address] | [address] | | | | | e disc | [address] | Avenue | | | | | disease), | [place], | [place], [place] | | | | | cervical | [place] [address] | [address] | | | | | Numbness and | Phone: | Phone: | | | | | tingling in | [phone] | [phone] | | | | | both hands | Fax: | Fax: | | | | | Procedures | [phone] | [phone] | | | | | IN NEW | | | | | | | PATIENT | | | | | | | LEVEL V IN | | | | | | | EST PATIENT | | | | | | | LEVEL V | | | +--------+--------+ + + + + Encounter Details +--------+---------+ + + + | Date | Type | Department | Care Team | Description | +--------+---------+ + + + | 03/20/ | Office | Neurosurgery at | Teo Vital MD | Cervical | | 2019 | Visit | [facility] [address] | [address] | radiculopathy | | | | [facility] | [place], [place] | (Primary Dx) | | | | [facility], | [address] | | | | | Building | [phone] | | | | | floor [place], [place] | | | | | | [address] | | | | | | [phone] | | | +--------+---------+ + + + [...] + + + | Blood Pressure | 110/76 | 03/20/2019 9:03 AM | | | | | PDT | | + + + + + | Pulse | 64 | 03/20/2019 9:03 AM | | | [...] + + + + | Weight | 84.3 kg (185 lb 14.4 | 03/20/2019 9:03 AM | | | | oz) | PDT | | + + + + + | Height | 162.6 cm (5' 4") | 03/20/2019 9:03 AM | | | | | PDT | | + + + + + | Body Mass Index | 31.91 | 03/20/2019 9:03 AM | | | | | PDT | | + + + + + documented in this encounter Progress Notes Teo Vital MD - 03/20/2019 9:15 AM PDT NEUROLOGICAL SURGERY HISTORY AND PHYSICAL: HPI: Mendez Castañeda is a 43 y.o. male seen in neurosurgical clinic for new patient consu ltation. Mendez Castañeda has history of severe cervical degenerative disc disorder with b ilateral upper extremity radiculopathy with numbness and tingling in both hands, s/p prior C 6-7 ACDF. He had an MRI in [place] and was sent to a Dr. Villalpando, neurosurgery, who refused the referral and forwarded him to pain management, however he was not interested in medications or injections. He presents for evaluation and second opinion. The patient reports pain in the back of his neck, numbness in his left thumb and first two fingers, and tingling in his right hand if he lies on his back. This has been bothering him for a few months. These are not the same symptoms he had at the time of his prior ACDF. He h as attempted to treatment his symptoms with physical therapy for 3 months, stretching, and p hysical activity, but he keeps getting worse. He notes he has been frequently dropping thing s, mostly with his left hand. He also notes low back pain and sciatica with numbness in the left leg. Current Outpatient Medications Medication Sig atorvastatin 40 mg oral tablet Take 1 tablet by mouth once daily. Indications: hypercho lesterolemia gabapentin 300 mg oral capsule Take 2 capsules by mouth three times daily. omeprazole 40 mg oral capsule,delayed release(DR/EC) Take 40 mg by mouth once daily. promethazine 25 mg oral tablet tiZANidine 4 mg oral tablet Take 1 tablet by mouth every six hours as needed. Max: 36 m g / day. No current facility-administered medications for this visit. Allergies Allergen Reactions Pineapple Anaphylaxis Bromelains Throat Swelling / Closing Ibuprofen Pruritus Naproxen Bleeding Makes kidneys bleed Penicillins Throat Swelling / Closing Past Surgical History Procedure Laterality Date Appendectomy Cervical spine surgery 01/22/2012 anterior cervical discectomy C6-C7 M[facility] Laminotomy of cervical vertebra with nerve root decompression 01/22/2012 Vasectomy 2009 Colonoscopy with biopsy 11/19/2014 Appendectomy 1997 Interbody placement of biomechanical device (alana-c) 01/22/2012 Egd with biopsy 08/18/2018 Past Medical History: Diagnosis Date Abdominal pain [...] possible PUD Follow up with Figueroa Ortega Family History Problem Relation GI Brother GERD Cancer Brother Pancreatic Other Neurological Father Alzheimer's Disease Colon Cancer Father Cancer Father Obesity Mother Cancer Mother Bladder GI Sister GERD Cancer Sister Pancreatic Social History Tobacco Use Smoking Status Former Smoker Last attempt to quit: 03/08/2015 Years since quittin.0 Smokeless Tobacco Never Used Social History Substance and Sexual Activity Alcohol Use No Alcohol/week: 0.0 oz Review of Systems: I personally reviewed patient symptoms and pertinent positives are available in the HPI, al l others negative. (Medications, allergies, past surgical history, past medical history, social history, and r eview of systems were reviewed by me and if not recorded in Epic will be scanned into the sy stem using intake patient forms during this encounter.) Physical Exam: BP 110/76 (BP Location: Right upper arm, Patient Position: Sitting) | Pulse 64 | Ht 1.626 m (5' 4") | Wt 84.3 kg (185 lb 14.4 oz) | BMI 31.91 kg/m | BSA 1.95 m Awake, alert, oriented x3, follow commands EOMI, hearing intact Tongue midline, face symmetric Gita, normal bulk and tone, normal ROM Normal fine finger movements bilaterally Decreased sensation in left upper extremity We reviewed the following films: 01/01/2019 MRI CERVICAL SPINE WO Assessment: Mendez Castañeda is a 43 y.o. male with history of neck pain s/p C6-7 ACDF wit h ongoing cervical radiculopathy and findings of moderate central canal stenosis at C5-6 wit h foraminal narrowing on imaging, consistent with adjacent level disease. I do feel that he could benefit from a C5-6 ACDF or artificial disc replacement, however he has only done 3 mo nths of physical therapy. I do not feel like he has maximized his less invasive treatment op tions, so I recommend he follow up locally for spine injections and we will see him in a few months to discuss his symptom management. Plan: - follow up with local pain management for cervical injections - RTC in 3 months to discuss symptoms I am Kierra Meade functioning as a scribe for Teo Vital MD at 7:35 AM on 03/20/2019. I have reviewed and verified the above scribed note of my visit with this patient as record ed by Kierra Meade. I spent 20 minutes with the patient. Greater than 50% of the time was spent counseling the patient regarding his neck pain possible cervical radiculopathy. documented in this enco unter Plan of Treatment Not on filedocumented as of this encounter Visit Diagnoses + + | Diagnosis | + + | Cervical radiculopathy - Primary Brachial neuritis or radiculitis nos | + + documented in this encounter
--- OUTSIDE RECORDS SUMMARY | ~2020-05-06 | XMS | Encounter Summary ---
Demographics + + + | Address | [address] | | | [place] [address] | + + + | Home Phone [...] + + + | Author | [facility] | + + + | Organization | [facility] | + + + | Address | Unknown | + + + | Phone | Unavailable | + + + Support + + + + + | Name | Relationship | Address | Phone | + + + + + | Neda Castañeda | ECON | [place] | | | | | [address] | | + + + + + Care Team Providers + +------+ + | Care Auto Mechanic Name | Role | Phone | + +------+ + | Nathalie Castillo | PCP | | + +------+ + Encounter Details +--------+ + + + + | Date | Type | Department | Care Team | Description | +--------+ + + + + | 08/16/ | Results | NON-[facility] | Babita Lombardo, | | | 2010 | Only | Department | MD [address] | | | | | | [place] | | | | | | [address] | | | | | | [phone] | | | | | | | [...] | CBC W/DIFF, REFLEX | Routin | 08/16/2011 | | Results for this | | | e | 11:30 PM | | procedure are in the | | | | PST | | results section. | + +--------+ + + + | COMPLETE METABOLIC | Routin | 08/16/2011 | | Results for this | | SET | e | 11:30 PM | | procedure are in the | | (NA,K,CL,CO2,BUN,CRE | | PST | | results section. | | AT,GLUC,CA,AST,ALT,B | | | | | | FRED TOTAL,ALK | | | | | | PHOS,ALB,PROT TOTAL) | | | | | + +--------+ + + + | UA, DIPSTICK ONLY | Routin | 08/16/2011 | | Results for this | | | e | 11:20 PM | | procedure are in the | | | | PST | | results section. | + +--------+ + + + documented in this encounter Results CBC W/DIFF, REFLEX (08/16/2011 11:30 PM PST) + +---------+ + + + | Component | Value | Ref Range | Performed | Pathologist | | | | | At | Signature | + +---------+ + + + | WHITE BLOOD | 8.1 | 4.3 - 11.0 X10 | [facility] | | | CELL COUNT | | 3/ul | A MEDICAL | | | | | | CENTER | | + +---------+ + + + | HEMOGLOBIN | 16.0 | 12.3 - 17.0 | [facility] | | | | | g/dL | A MEDICAL | | | | | | CENTER | | + +---------+ + + + | RED BLOOD | 5.41 | 4.7 - 6.1 X10 | [facility] | | | CELL COUNT | | 6/uL | A MEDICAL | | | | | | CENTER | | + +---------+ + + + | HEMATOCRIT | 47.4 | 40.0 - 54.0 % | [facility] | | | | | | A MEDICAL | | | | | | CENTER | | + +---------+ + + + | MCV | 87.6 | 82 - 100 fl | [facility] | | | | | | A MEDICAL | | | | | | CENTER | | + +---------+ + + + | MCH | 29.5 | 28.0 - 32.0 pg | [facility] | | | | | | A MEDICAL | | | | | | CENTER | | + +---------+ + + + | MCHC | 33.7 | 32 - 36 g/dL | [facility] | | | | | | A MEDICAL | | | | | | CENTER | | + +---------+ + + + | RDW | 12.3 | 12 - 15 fL | [facility] | | | | | | A MEDICAL | | | | | | CENTER | | + +---------+ + + + | PLATELET | 227 | 150 - 450 X10 3 | [facility] | | | COUNT | | | A MEDICAL | | | | | | CENTER | | + +---------+ + + + | MPV | 6.9 (L) | 9.0 - 12.0 fL | [facility] | | | | | | A MEDICAL | | | | | | CENTER | | + +---------+ + + + | NEUTROPHIL | 64.3 | 40 - 80 % | [facility] | | | % | | | A MEDICAL | | | | | | CENTER | | + +---------+ + + + | LYMPHOCYTE | 29.1 | 20 - 50 % | [facility] | | | % | | | A MEDICAL | | | | | | CENTER | | + +---------+ + + + | EOS % | 0.8 | 0 - 5 % | [facility] | | | | | | A MEDICAL | | | | | | CENTER | | + +---------+ + + + | BASO % | 1.0 | 0 - 1 % | [facility] | | | | | | A MEDICAL | | | | | | CENTER | | + +---------+ + + + | MONOCYTE % | 4.8 | 2 - 10 % | [facility] | | | | | | A MEDICAL | | | | | | CENTER | | + +---------+ + + + | BANDS % | PUBLIC WELFARE WORKER | 0 - 7 % | [facility] [...] | + + + + + | [facility] | And | [place], [place] | | | [facility] | Streets | [address] | | + + + + + COMPLETE METABOLIC SET (NA,K,CL,CO2,BUN,CREAT,GLUC,CA,AST,ALT,BILI TOTAL,ALK PHOS,ALB,PROT TOTAL) (08/16/2011 11:30 PM PST) + +---------+ + + + | Component | Value | Ref Range | Performed | Pathologist | | | | | At | Signature | + +---------+ + + + | SODIUM, | 142 | 137 - 146 MEQ/L | [facility] | | | PLASMA | | | A MEDICAL | | | (LAB) | | | CENTER | | + +---------+ + + + | POTASSIUM, | 3.6 | 3.5 - 5.2 MEQ/L | [facility] | | | PLASMA | | | A MEDICAL | | | (LAB) | | | CENTER | | + +---------+ + + + | CO2 | 29 (H) | 22 - 28 MEQ/L | [...] + + + | ANION GAP | 13.6 | 8 - 16 MEQ/L | [facility] | | | | | | A MEDICAL | | | | | | CENTER | | + +---------+ + + + | GLUCOSE, | 103 | 70 - 105 MG/DL | [facility] | | | PLASMA | | | A MEDICAL | | | (LAB) | | | CENTER | | + +---------+ + + + | BUN, PLASMA | 9 | 8 - 30 MG/DL | [facility] | | | (LAB) | | | A MEDICAL | | | | | | CENTER | | + +---------+ + + + | CREATININE | 1.14 | 0.9 - 1.3 MG/DL | [facility] | | | PLASMA | | | A MEDICAL | | | (LAB) | | | CENTER | | + +---------+ + + + | BUN/CREATIN | 7 | 6 - 20 RATIO | [facility] | | | INE RATIO | | | A MEDICAL | | | | | | CENTER | | + +---------+ + + + | CALCIUM, | 9.6 | 8.5 - 10.8 | [facility] | | | PLASMA | | MG/DL | A MEDICAL | | | (LAB) | | | CENTER | | + +---------+ + + + | AMYLASE,DEBRA | 59 | 28 - 100 U/L | [facility] | | | SMA | | | A MEDICAL | | | | | | CENTER | | + +---------+ + + + | AST(SGOT) | 23 | 10 - 41 U/L | [facility] | | | | | | A MEDICAL | | | | | | CENTER | | + +---------+ + + + | ALT (SGPT) | 40 | 7 - 51 U/L | [facility] | | | | | | A MEDICAL | | | | | | CENTER | | + +---------+ + + + | ALK PHOS | 74 | 34 - 158 U/L | [facility] | | | | | | A MEDICAL | | | | | | CENTER | | + +---------+ + + + | TOTAL | 8.0 | 6.7 - 8.5 G/DL | [facility] | | | PROTEIN, | | | A MEDICAL | | | PLASMA | | | CENTER | | | (LAB) | | | | | + +---------+ + + + | ALBUMIN, | 4.6 | 3.5 - 5.0 G/DL | [facility] | | | PLASMA | | | A MEDICAL | | | (LAB) | | | CENTER | | + +---------+ + + + | BILIRUBIN | 1.0 | 0.2 - 1.6 MG/DL | [facility] | | | TOTAL | | | A MEDICAL | | | | | | CENTER | | + +---------+ + + + | LIPASE | 109 (H) | 5 - 57 U/L | [facility] | | | (LAB) | | | A MEDICAL | | | | | | CENTER | | + +---------+ + + + | ESTIMATED | 78.2 | >60 | [facility] | | | GFR | | | A MEDICAL | | | | | | CENTER | | + +---------+ + + + | FASTING? | UNK | HR | [facility] | | | [...] [facility] | [address] | [place] | | | MEDICAL CENTER | Streets | [address] | | + + + + + UANEREIDA ONLY (08/16/2011 11:20 PM PST) + + + + + [...] + + + + | SPECIFIC | 1.006 | 1.005 - 1.030 | [facility] | | | GRAVITY | | | A MEDICAL | | | | | | CENTER | | + + + + + + | PH(UR) | 7.0 | 5.0 - 8.0 | [facility] | [...] | [facility] | [address] | [place], [place] | | | MEDICAL CENTER | Streets | [address] | | + + + + + documented in this encounter Visit Diagnoses Not on filedocumented in this encounter"
--- OUTSIDE RECORDS SUMMARY | ~2020-05-06 | XMS | Encounter Summary ---
Demographics + + + | Address | [address] | | | [place] [address] | + + + | Home Phone | | + + + | Preferred Language | Unknown | + + + | Marital Status | Single | + + + | Taoism Affiliation | NRP | + + + [...] [place] | | | | | [address] | | + + + + + Care Team Providers + +------+ + | Care Product Assurance Engineer Name | Role | Phone | + +------+ + | Violeta Parker DO | PCP | | + +------+ + Encounter Details +--------+ + + + + | Date | Type | Department | Care Team | Description | +--------+ + + + + | 10/02/ | Document-Sc | [facility] | Len Pope, | | | 2020 | anned | [facility] [address] | [address] | | | | | St [place] | [place] [address] | | | | | [address] | [phone] | | | | | [phone] | | | +--------+ + + + [...]
--- OUTSIDE RECORDS SUMMARY | ~2020-05-06 | XMS | Encounter Summary ---
Demographics + + + | Address | [address] | | | [place] [address] | + + + | Home Phone | | + + + | Preferred Language | Unknown | + + + | Marital Status | Single | + + + | Tenriism Affiliation | NRP | + + + | Race | White | + + + | Ethnic Group | Not or | + + + Author + + + | Author | [facility] | + + + | Organization | [facility] | + + + | Address | Unknown | + + + | Phone | Unavailable | + + + Support + + + + + | Name | Relationship | Address | Phone | + + + + + | Neda Castañeda | ECON | [place] | | | | | [address] | | + + + + + Care Team Providers + +------+ + | Care Flying Squad Salesperson Name | Role | Phone | + +------+ + | Nathalie Castillo | PCP | | + +------+ + Encounter Details +--------+ + + + + | Date | Type | Department | Care Team | Description | +--------+ + + + + | 08/17/ | Results | NON-[facility] | Babita Lombardo, | | | 2010 | Only | Department | MD [address] | | | | | | [place] | | | | | | [address] | | | | | | [phone] | | | | | | | [...] | + +--------+ + + + | ABD. ULTRASOUND | Routin | 08/17/2011 | | Results for this | | LIMITED [id number] | e | 12:55 AM | | procedure are in the | | | | PST | | results section. | + +--------+ + + + documented in this encounter Results ABD. ULTRASOUND LIMITED [id number] (08/17/2011 12:55 AM PST) + + | Specimen | + + | | + + + + + | Narrative | Performed At | + + + | LIMITED ABDOMINAL ULTRASOUND INDICATION: Abdominal pain. | [facility] | | FINDINGS: Ultrasound examination was performed in multiple planes. | DEPARTMENT OF | | The liver is normal in size and texture. No dilated biliary duct is | RADIOLOGY | | seen. No thickening of the gallbladder wall or calculus is | | | demonstrated. The pancreas is obscured by bowel gas. The common | | | bile duct measures 4.3 mm. No free fluid is seen. The kidneys and | | | spleen were not examined. CONCLUSIONS: Negative limited abdominal | | | ultrasound. Job [id number] | | + + + + + | Procedure Note | + + | Interface, Radiology Results - 05/13/2015 12:13 PM PDT LIMITED ABDOMINAL ULTRASOUND | | INDICATION: Abdominal pain. | | FINDINGS: Ultrasound examination was performed in multiple planes. | | The liver is normal in size and texture. No dilated biliary duct is | | seen. No thickening of the gallbladder wall or calculus is | | demonstrated. The pancreas is obscured by bowel gas. The common bile | | duct measures 4.3 mm. No free fluid is seen. The kidneys and spleen | | were not examined. | | CONCLUSIONS: Negative limited abdominal ultrasound. | | Job [id number] | + + + +---------+ + + [...]
--- OUTSIDE RECORDS SUMMARY | ~2020-05-06 | XMS | Encounter Summary ---
Demographics + + + | Address | [address] | | | [place] [address] | + + + | Home Phone [...] [place] | | | | | [address] | | + + + + + Care Team Providers + +------+ + | Care Telecommunication Tower Technician Name | Role | Phone | + +------+ + | Nathalie Castillo | PCP | | + +------+ + Encounter Details +--------+ + + + + | Date | Type | Department | Care Team | Description | +--------+ + + + + | 11/03/ | Results | Family Medicine at | [facility], | | | 2014 | Only | [facility] | [facility] | | | | | Clinic [address] | | | | | | [place] | | | | | | [address] | | | | | | [phone] | | | +--------+ + + + [...] | NEREIDA MORILLO ONLY | Routin | 11/03/2014 | | Results for this | | | e | 3:16 PM | | procedure are in the | | | | PST | | results section. | + +--------+ + + + documented in this encounter Results NEREIDA MORILLO ONLY (11/03/2014 3:16 PM PST) + + + + + [...] + + + + | SPECIFIC | 1.025 | 1.005 - 1.030 | [facility] | | | GRA[facility]ITY | | | A MEDICAL | | | | | | CENTER | | + + + + + + | PH(UR) | 5.5 | 5.0 - 8.0 | [facility] | [...] + + + + | BLOOD | TRACE | NEGATIVE | [facility] | | | [...] + + | UROBILINOGE | NEG | NORMAL SHANTELL | [facility] | | | N | | | A MEDICAL | | | | | | CENTER | | + + + + + + | WHITE CELLS | 0-1 | 0 - 2 HPF | [facility] [...] + + + + | EPITHELIAL | FEW | RARE-MOD LPF | [facility] | | | CELLS | | | A MEDICAL | | | | | | CENTER | | + + + + + + | BACTERIA | NEG | NEG HPF | [facility] | | | | | | A MEDICAL | | | | | | CENTER | | + + + + + + | OTHER | MUCUS PRESENT | | [facility] | | | | | | A MEDICAL | | | | | | CENTER | | + + + + + + | SOURCE | RANDOM | | [facility] | | | | | [...] + + + | [facility] | [address] [place] | [place] | [phone] | | MEDICAL CENTER | [address] | [address] | | + + + + + documented in this encounter Visit Diagnoses Not on filedocumented in this encounter"
--- OUTSIDE RECORDS SUMMARY | ~2020-05-06 | XMS | Encounter Summary ---
Demographics + + + | Address | [address] | | | [place] [address] | + + + | Home Phone [...] [place] | | | | | [address] | | + + + + + Care Team Providers + +------+ + | Care Drilling Superintendent Name | Role | Phone | + [...] Description | +--------+--------+ + + + | 05/30/ | Refill | Family Medicine at | [facility], | Refill Request | | 2014 | | [facility] | [facility] | | | | | Clinic [address] | | | | | | St [place] | | | | | | [address] | | | | | | [phone] | | | +--------+--------+ + + + [...]
--- OUTSIDE RECORDS SUMMARY | ~2020-05-06 | XMS | Encounter Summary ---
Demographics + + + | Address | GENERAL DELIVERY | | | [place] [address] | + + + | Home Phone [...] [place] | | | | | [address] | | + + + + + Care Team Providers + +------+ + | Care Title Insurance Examiner Name | Role | Phone | + [...] | | 2017 | | Department at [facility] | MD [address] | | | | | Hospital [address] | [place], [place] | | | | | St [place], | [address] | | | | | [place] [address] | [phone] | | | | | [phone] | | | +--------+ + + + [...] cannot be sent through Care Everywhere.Chest Contusion ([facility])Ankle Sprain ([facility])documented in this encounter Medications at Time of [...] | + + + + + | [facility] | [address] | [place], [place] | [phone] | | [facility] | [facility] | [address] | | + + + + + CT CHEST, ABDOMEN AND PELVIS W IV CONTRAST (05/07/2018 12:15 PM PDT) + + | Specimen | + + | | + + + + + | Narrative | Performed At | + + + | [address] [place] [address] | [facility] | | [place] [address] | DEPARTMENT | | [phone] Name: CHUCK SANTOS Phys: | RADIOLOGY | | GLORIA LOMBARDO : 1975 Sex: M CSN: | | | [id number] MR# [id number] Exam Date: 05/07/2018 | | | EXAM: CT CHEST, ABDOMEN AND PELVIS W IV CONTRAST [id number] | | | CLINICAL HISTORY: Fall off [...] | | | Electronically signed by: Star eMndez MD Transcribed Date/Time: | | | 05/07/2018 12:45 Commercial Cleaner: VAL | | + + + + + | Procedure Note | + + | Interface, Radiology Results - 05/07/2018 12:50 PM PDT [address] | | [address] [place] [address] | | Name: CHUCK SANTOS Phys: GLORIA LOMBARDO : 1975 Sex: M | | CSN: [id number] MR# [id number] Exam Date: 05/07/2018 EXAM:CT CHEST, ABDOMEN AND | | PELVIS W IV CONTRAST [id number] CLINICAL HISTORY:Fall off ladder. Chest pain and [...] | | |Transcribed Date/Time: 05/07/2018 12:45 | |Commercial Cleaner: FLUENCY | | | | | | [...] | + + + | [address] [facility] [address] | [facility] | | [place] [address] | [facility] | | [phone] Name: CHUCK SANTOS Phys: | RADIOLOGY | | GLORIA LOMBARDO Magalie : 1975 Sex: M CSN: | | | [id number] MR# [id number] Exam Date: 05/07/2018 | | | EXAM: [...] | | | Transcribed Date/Time: 05/07/2018 12:35 Commercial Cleaner: FLUENCY | | | | | + + + + + | Procedure Note | + + | Interface, Radiology Results - 05/07/2018 12:40 PM PDT [address] | | [address] [place] [address] | | Name: CHUCK SANTOS Phys: MUNIRAGLORIA M : 1975 Sex: M | | CSN: [id number] MR# [id number] Exam Date: 05/07/2018 EXAM:CT SPINE CERVICAL WO [...] | | |Transcribed Date/Time: 05/07/2018 12:35 | |Commercial Cleaner: FLUENCY | | | | | | [...] | + + + | [address] [facility] [address] | [facility] | | [place] [address] | DEPARTMENT | | [phone] Name: CHUCK SANTOS Phys: | RADIOLOGY | | GLORIA LOMBARDO : 1975 Sex: M CSN: | | | [id number] MR# [id number] Exam Date: 05/07/2018 | | | EXAM: [...] Transcribed Date/Time: 05/07/2018 12:29 | | | Commercial Cleaner: FLUENCY | | + + + + + | Procedure Note | + + | Interface, Radiology Results - 05/07/2018 12:34 PM PDT [address] | | [address] [place] [address] | | Name: CHUCK SANTOS Phys: GLORIA OLMBARDO : 1975 Sex: M | | CSN: [id number] MR# [id number] Exam Date: 05/07/2018 EXAM:X-RAY PORTABLE ANKLE 3 [...] | | |Transcribed Date/Time: 05/07/2018 12:29 | |Commercial Cleaner: FLUENCY | | | | | | [...] [place] | | | | Streets | [address] | | + + + + + [...] | [facility] | [address] | [place], [place] | | | | Streets | [address] | | + + + + + [...] | + + + + + | [facility] | [address] | [place], [place] | [phone] | | [facility] [place] | Streets | [address] | | + + + + + LIPASE, PLASMA (05/07/2018 11:58 AM PDT) + +-------+ + + + | Component | Value | Ref Range | Performed | Pathologist | | | | | At | Signature | + +-------+ + + + | LIPASE | 39 | 5 - 57 U/L | [facility] | | | (LAB) | [...] + + | [facility] | [address] | [place] | [phone] | | MEDICAL CENTER | Streets | [address] | | + + + + + COMPLETE METABOLIC SET (NA,K,CL,CO2,BUN,CREAT,GLUC,CA,AST,ALT,BILI TOTAL,ALK PHOS,ALB,PROT TOTAL) (05/07/2018 11:58 AM PDT) + +-------+ + + + | Component | Value | Ref Range | Performed | Pathologist | | | | | At | Signature | + +-------+ + + + | GLUCOSE, | 102 | 70 - 105 mg/dL | [facility] | | | PLASMA | | | A MEDICAL | | | (LAB) | | | CENTER | | + +-------+ + + + | BUN, PLASMA | 13 | 6 - 26 mg/dL | [facility] | | | (LAB) | [...] | | A MEDICAL | | | [place] | | | CENTER | | + +-------+ + + + | EGFR NON | >60 | >60 mL/min | [facility] | | | -ALIX | | | A MEDICAL | | | [place] | | | CENTER | | + +-------+ + + + | ANION GAP | 14 | 12 - 20 mmol/L | [facility] | | | | | | A MEDICAL | | | | | | CENTER | | + +-------+ + + + | BUN/CREATIN | 11 | 6 - 20 | [facility] | | | INE RATIO | | [...] the MDRD equation recommended by the | [facility] | | National Kidney [...] | + + + + + | [facility] | And | [place] | [phone] | | [facility] | Streets | [address] | | + + + + + [...]
--- OUTSIDE RECORDS SUMMARY | ~2020-05-06 | XMS | Encounter Summary ---
Demographics + + + | Address | GENERAL DELIVERY | | | [place] [address] | + + + | Home Phone | | + + + | Preferred Language | Unknown | + + + | Marital Status | Single | + + + | Baptist Affiliation | NRP | + + + [...] [place] | | | | | [address] | | + + + + + Care Team Providers + +------+ + | Care Solar Energy Consultant And Designer Name | Role | Phone | + +------+ + | Herbert Marie MD,MPH | PCP | Unavailable | + +------+ + Encounter Details +--------+------+ + + + | Date | Type | Department | Care Team | Description | +--------+------+ + + + | 06/21/ | Lab | Laboratory at [facility] | | Cancer of prostate | | 2015 | | Family Medicine | | w/recur risk not | | | | [address] | | determined/neith | | | | [place], [place] | | low, med nor high | | | | [address] | | (HCC); | | | | [phone] | | Hyperglycemia; | | | | | | Elevated BP; Mixed | | | | | | hyperlipidemia; | | | | | | Immunity status | | | | | | testing | +--------+------+ + + + Social History [...] | + +--------+ + + + | LAB OTHER | Routin | 06/21/2016 | Cancer of prostate | Results for this | | | e | 1:46 PM | w/recur risk not | procedure are in the | | | | PDT | determined/neith | results section. | | | | | low, med nor high | | | | | | (HCC) | | + +--------+ + + + | [facility]OSTER | Routin | 06/21/2016 | Immunity status | Results for this | | IGG, SERUM | e | 1:46 PM | testing | procedure are in the | | | | PDT | | results section. | + +--------+ + + + | COMPLETE METABOLIC | Routin | 06/21/2016 | Elevated BP | Results for this | | SET | e | 1:46 PM | | procedure are in the | | (NA,K,CL,CO2,BUN,CRE | | PDT | | results section. | | AT,GLUC,CA,AST,ALT,B | | | | | | FRED TOTAL,ALK | | | | | | PHOS,ALB,PROT TOTAL) | | | | | + +--------+ + + + | CANCER AG GI (19-9), | Routin | 06/21/2016 | Cancer of prostate | Results for this | | SERUM | e | 1:46 PM | w/recur risk not | procedure are in the | | | | PDT | determined/neith | results section. | | | | | low, med nor high | | | | | | (HCC) | | + +--------+ + + + | LIPID SET (TRIG, T | Routin | 06/21/2016 | Mixed | Results for this | | CHOL, HDL, CALC LDL) | e | 1:46 PM | hyperlipidemia | procedure are in the | | | | PDT | | results section. | + +--------+ + + + | HEMOGLOBIN A1C, | Routin | 06/21/2016 | Hyperglycemia | Results for this | | BLOOD | e | 1:46 PM | | procedure are in the | | | | PDT | | results section. | + +--------+ + + + documented in this encounter Results VARICELLA ZOSTER IGG, SERUM (06/21/2016 1:46 PM PDT) + + + + + + | Component | Value | Ref Range | Performed | Pathologist | | | | | At | Signature | + + + + + + | VARICELLA | < [place] = 0.90 (A)Comment: | index | [facility] | | | ZOSTER IGG | Index | | DIAGNOSTICS | | | | Explanation of | | - [place] | | | | Results --------- | | | | | | | | | | | | | | | | | | < or = 0.90 | | | | | | Negative - No VZV IgG | | | | | | Antibody detected | | | | | | 0.91 - 1.09 | | | | | | Equivocal > or = | | | | | | 1.10 Positive - VZV | | | | | | IgG Antibody detected | | | | | | A positive result | | | | | | indicates that the | | | | | | patient has | | | | | | antibody to VZV but does | | | | | | not differentiate | | | | | | between infection | | | | | | (active or past) and | | | | | | vaccination. The | | | | | | clinical diagnosis must | | | | | | be interpreted in | | | | | | conjunction with the | | | | | | clinical signs and | | | | | | symptoms of the | | | | | | patient. This assay | | | | | | reliably measures | | | | | | immunity due to | | | | | | previous infection but | | | | | | may not always be | | | | | | sensitive enough to | | | | | | detect antibodies | | | | | | induced by | | | | | | vaccination. Thus, a | | | | | | negative result in a | | | | | | vaccinated | | | | | | individual does not | | | | | | necessarily indicate | | | | | | susceptibility to VZV | | | | | | infection. | | | | + + + + + + + + | Specimen | + + | Blood - Blood | + + + + + | Narrative | Performed At | + + + | Test performed at [facility] | [facility] | | [address] [facility] | DIAGNOSTICS - | | [place] [address] | [place] | | [place] BRIAN LOPES MD | | + + + + + + + + | Performing | Address | City/State/Zipcode | Phone Number | | Organization | | | | + + + + + | [facility] | [address] | [place] [address] | | | - [place] | [address] | | | + + [...] a level 30 mg/dL higher than | [facility] | | that for LDL cholesterol. Cardiac Risk Ratio Interpretation: | [facility] | | Interpretation Cardiac Risk Ratio Below Average | | | Risk 0.0 - 3.4 Above Average Risk | | | 3.5 - 4.9 | | + + + + + + + + | Performing | Address | City/State/Zipcode | Phone Number | | Organization | | | | + + + + + | [facility] | | [place], [place] | [phone] | | [facility] | Streets | [address] | | + + + + + COMPLETE METABOLIC SET (NA,K,CL,CO2,BUN,CREAT,GLUC,CA,AST,ALT,BILI TOTAL,ALK PHOS,ALB,PROT TOTAL) (06/21/2016 1:46 PM PDT) + + + + + + | Component | Value | Ref Range | Performed | Pathologist | | | | | At | Signature | + + + + + + | GLUCOSE, | 101 | 70 - 105 mg/dL | [facility] | | | PLASMA | | | [...] | | A MEDICAL | | | [place] | | | CENTER | | + [...] equation recommended by the | [facility] | | National Kidney Disease Education Program. Estimated GFR | [facility] | | Interpretive Information: <60 [...] + + + + | [facility] | And | [place], [place] | [phone] | | MEDICAL CENTER | Street | [address] | | + + + + + HEMOGLOBIN A1C, BLOOD (06/21/2016 1:46 PM PDT) + +-------+ + + + | Component | Value | Ref Range | Performed | Pathologist | | | | | At | Signature | + +-------+ + + + | HEMOGLOBIN | 5.8 | % | [facility] | | | A1C | | | A MEDICAL | | | | | | CENTER | | + +-------+ + + + | ESTIMATED | 120 | mg/dL | [facility] | | | AVERAGE | | [...] per DCCT & ADA: | [facility] | | Normal Range: <6% | [facility] | | Good Control: <7% | | | Additional action suggested: >8% Non-Diabetic | | | Ranges: 4-6% Captain Of Guards's Glycohemoglobin | | | Diabetic Ranges: Normal Range: | | | 4.0-6.0% Good Control: | | | 6.0-8.0% Poor Control: | | | >8.0% | | + + + + + + + + | Performing | Address | City/State/Zipcode | Phone Number | | Organization | | | | + + + + + | [facility] | And | [place], [place] | [phone] | | [facility] | [facility] | [address] | | + + + + + LAB OTHER (06/21/2016 1:46 PM PDT) + [...] /Chaka | | | | | | [id number] | | | | | | [place] | | | | | | [place] | | | | | | [place] | | | | | | [address] | | | | + + + [...] + + + + CANCER AG GI (), SERUM (06/21/2016 1:46 PM PDT) + + [...] + + | [facility] | [address] [facility] | [place] [address] | | | - [place] | [address] | | | + + + + + documented in this encounter Visit Diagnoses + + | Diagnosis | + + | Cancer of prostate w/recur risk not determined/neith low, med nor high (HCC) | | Malignant neoplasm of prostate | + + | Hyperglycemia Other abnormal glucose | + + | Elevated BP Elevated blood pressure reading without diagnosis of hypertension | + + | Mixed hyperlipidemia | + + | Immunity status testing Antibody response examination | + + documented in this encounter"
--- OUTSIDE RECORDS SUMMARY | ~2020-05-06 | XMS | Encounter Summary ---
Demographics + + + | Address | GENERAL DELIVERY | | | [place] [address] | + + + | Home Phone [...] [place] | | | | | [address] | | + + + + + Care Team Providers + +------+ + | Care Coke Oven Mason Name | Role | Phone | + [...] | | esophagitis | [place], [place] | [address] | | | | | presence not | [address] | Phone: | | | | | specified | Phone: | [phone] | | | | | Procedures | [phone] | Fax: | | | | | REQUEST TO | Fax: | [phone] | | | | | SURGERY | [phone] | | | | | | BLOCKING MACHINE OPERATOR SECOND | | | | | | | SC UPPER GI | | | | | | | ENDOSCOPY,DI | | | | | | | AGNOSIS SC | | | | | | | UPPER GI | | | | | | | ENDOSCOPY,BI | | | | | | | OPSY SC UP | | | | | | [...] | | | | ageal reflux | [address] | [address] | | | | | disease) | [place], | [place] | | | | | | [place] [address] | [address] | | | | | | Phone: | Phone: | | | | | | [phone] | [phone] | | | | | | Fax: | Fax: | | | | | | [phone] | [phone] | +--------+--------+ + + + + Encounter Details +--------+---------+ + + + | Date | Type | Department | Care Team | Description | +--------+---------+ + + + | 08/07/ | Office | [facility] | [place], | Gastroesophageal | | 2018 | Visit | Surgery Clinic [address] | Angel Woodall MD [address] | reflux disease, | | | | [address] | [address] | esophagitis presence | | | | [place], [place] | [place] | not specified | | | | [address] | [address] | (Primary Dx) | | | | [phone] | [phone] | | | | | | | [...] monitor (like a TV set or a [employer] er screen) as he or she moves [...] will and a durable power of civil litigation attorney for health care. Bring a copy [...] apply lotions, pe rfumes, deodorants, or nail montserratian. Take off all jewelry and piercings. And [...] Endoscopy: Before Your Procedure", log into your [facility] acco unt at [email or web address]. You can enter P790 in the "[employer]" search box. Not on Chicis[employer]? Review the OneShieldhart section of your After Visit Summary for directions on booker cardoza to sign up. Current as of: February 08, 2017 Content Version: 11.7 9088-1860 [employer]. Care instructions adapted under license by [facility]. If you have questions about a medical condition or this instr uction, always ask your healthcare professional. [employer] disclaims any nina anty or liability for [...] in 2014. He is due for another wa ope in 2 years. He has vomiting [...] spine surgery 01/22/2012 anterior cervical discectomy C6-C7 [facility] Laminotomy of cervical vertebra with [...] esophagitis presence not specified - REQUEST TO MATHEMATICS ACADEMIC CHAIR 43-year-old man with a history of GERD [...]
--- OUTSIDE RECORDS SUMMARY | ~2020-05-06 | XMS | Encounter Summary ---
Demographics + + + | Address | GENERAL DELIVERY | | | [place] [address] | + + + | Home Phone | | + + + | Preferred Language | Unknown | + + + | Marital Status | Single | + + + | Hindu Affiliation | NRP | + + + [...] [place] | | | | | [address] | | + + + + + Care Team Providers + +------+ + | Care Hardware Developer Name | Role | Phone | + +------+ + | Iliana Parker DO | PCP | | + +------+ + Encounter Details +--------+ + + + + | Date | Type | Department | Care Team | Description | +--------+ + + + + | 03/03/ | Hospital | Ultrasound at [facility] | Iliana Parker, | | | 2019 | Encounter | Hospital [address] | DO [address] | | | | | St [place], | [place] [address] | | | | | [place] [address] | [phone] | | | | | [phone] | | | +--------+ + + + [...] + +--------+ + + + | US ABDOMEN LIMITED | Routin | 03/03/2019 | Abdominal wall | Results for this | | | e | 7:40 AM | hernia | procedure are in the | | | | PDT | | results section. | + +--------+ + + + | ORDERS OTHER | | 03/03/2019 | | Results for this | | | | 12:00 AM | | procedure are in the | | | | PDT | | results section. | + +--------+ + + + documented in this encounter Results US ABDOMEN LIMITED (03/03/2019 7:40 AM PDT) + + | Specimen | + + | | + + + + + | Narrative | Performed At | + + + | [address] [place] [address] | [facility] | | [place] [address] | [facility] | | [phone] Name: CHUCK SANTOS Phys: | RADIOLOGY | | ILIANA JAVED : 1975 Sex: M | | | CSN: [id number] MR# [id number] Exam Date: | | | 03/03/2019 EXAM: [...] Transcribed Date/Time: 03/03/2019 08:23 | | | Foundry Manager: FLUENCY | | + + + + + | Procedure Note | + + | Interface, Radiology Results - 03/03/2019 8:27 AM PDT [address] | | [address] [place] [address] | | Name: CHUCK SANTOS Phys: TELLOILIANA M : 1975 Sex: M | | CSN: [id number] MR# [id number] Exam Date: 03/03/2019 EXAM:US ABDOMEN LIMITED | [...] MD Transcribed Date/Time: 03/03/2019 | | 08:23Transcriptionist: VAL | |US ABDOMEN LIMITED | | | [...] | | |Transcribed Date/Time: 03/03/2019 08:23 | |Foundry Manager: FLUENCY | | | | | | | + + + +---------+ + + | Performing | Address | City/State/Zipcode | Phone Number | | Organization | | | | + +---------+ + + | [facility]MENT OF | | | | | RADIOLOGY | | | | + +---------+ + + ORDERS OTHER (03/03/2019 12:00 AM PDT) + + + | Narrative | Performed At | + + + | | | + + + documented in this encounter Visit Diagnoses + + | Diagnosis | + + | Abdominal wall hernia Ventral hernia, unspecified, without mention of obstruction or | | gangrene | + + documented in this encounter"
--- OUTSIDE RECORDS SUMMARY | ~2020-05-06 | XMS | Encounter Summary ---
Demographics + + + | Address | GENERAL DELIVERY | | | [place] [address] | + + + | Home Phone [...] [place] | | | | | [address] | | + + + + + Care Team Providers + +------+ + | Care Dairy Processing Equipment Operator Name | Role | Phone | + +------+ + | Herbert Marie MD,MPH | PCP | Unavailable | + +------+ + Reason for Visit + + + | Reason | Comments | + + + | Refill Request | Fluticasone Prop 50 MCG | + + + Encounter Details +--------+--------+ + + + | Date | Type | Department | Care Team | Description | +--------+--------+ + + + | 09/05/ | Refill | [facility] | Herbert Marie, | Refill Request | | 2016 | | Medicine [address] | [address] | (Fluticasone Prop 50 | | | | [address] [place], | | [facility]) | | | | [place] [address] | | | | | | [phone] | | | +--------+--------+ + + + [...]
--- OUTSIDE RECORDS SUMMARY | ~2020-05-06 | XMS | Encounter Summary ---
Demographics + + + | Address | GENERAL DELIVERY | | | [place] [address] | + + + | Home Phone [...] + | Neda Castañeda | ECON | [place] | | | | | [address] | | + + + + + Care Team Providers + +------+ + | Care Software Test Analyst Name | Role | Phone | + [...]
--- OUTSIDE RECORDS SUMMARY | ~2020-05-06 | XMS | Encounter Summary ---
Demographics + + + | Address | GENERAL DELIVERY | | | [place] [address] | + + + | Home Phone | | + + + | Preferred Language | Unknown | + + + | Marital Status | Single | + + + | Orthodox Affiliation | NRP | + + [...] [place] | | | | | [address] | | + + + + + Care Team Providers + +------+ + | Care Weight And Balance Control Agent Name | Role | Phone | + +------+ + | Iliana Parker DO | PCP | | + +------+ + Encounter Details +--------+ + + + + | Date | Type | Department | Care Team | Description | +--------+ + + + + | 08/04/ | Transcribe | [facility] | Iliana Parker, | | | 2019 | Orders | [facility] [address] | DO [address] | | | | | [address] | [place] [address] | | | | | [place] | [phone] | | | | | [address] | | | +--------+ + + + [...] filedocumented as of this encounter Results US KIDNEY & BLADDER (08/28/2019 7:47 AM PST) + + | Specimen | + + | | + + + + + | Narrative | Performed At | + + + | [address] [place] [address] | [facility] | | [place] [address] | DEPARTMENT | | [phone] Name: CHUCK SANTOS Phys: | RADIOLOGY | | TELLOILIANA M : 1975 Sex: M | | | CSN: [id number] MR# [id number] Exam Date: | | | 08/28/2019 EXAM: [...] Transcribed | | | Date/Time: 08/28/2019 12:18 Chief Console Operator: FLUENCY | | + + + + + | Procedure Note | + + | Interface, Radiology Results - 08/28/2019 12:26 PM PST [address] | | [address], [place] [address] | | Name: CHUCK SANTOS Phys: ILIANA JAVED : 1975 Sex: M | | CSN: [id number] MR# [id number] Exam Date: 08/28/2019 EXAM:RENAL AND BLADDER | [...] | | |Transcribed Date/Time: 08/28/2019 12:18 | |Chief Console Operator: FLUENCY | | | | | | [...] Diagnosis | + + | Kidney stone - Primary Calculus of kidney | + + documented in this encounter"
--- OUTSIDE RECORDS SUMMARY | ~2020-05-06 | XMS | Encounter Summary ---
Demographics + + + | Address | [address] | | | [place] [address] | + + + | Home Phone | | + + + | Preferred Language | Unknown | + + + | Marital Status | Single | + + + | Restoration Affiliation | NRP | + + + | Race | White | + + + | Ethnic Group | Not or | + + + Author + + + | Author | [facility] | + + + | Organization | [facility] | + + + | Address | Unknown | + + + | Phone | Unavailable | + + + Support + + + + + | Name | Relationship | Address | Phone | + + + + + | Neda Castañeda | ECON | [place] | | | | | [address] | | + + + + + Care Team Providers + +------+ + | Care Vending Route Driver Name | Role | Phone | + +------+ + | Nathalie Castillo | PCP | | + +------+ + Encounter Details +--------+ + + + + | Date | Type | Department | Care Team | Description | +--------+ + + + + | 08/03/ | Results | NON-[facility] EPIC | Kari Amin MD | | | 2012 | Only | Department | [facility] | | | | | | Health Dept [address] | | | | | | [address] [facility], | | | | | | [place] [address] | | | | | | [phone] | | | | | | | [...] | + +--------+ + + + | OCCULT BLOOD, FECES, | Routin | 08/03/2013 | | Results for this | | DIAGNOSTIC | e | 1:36 PM | | procedure are in the | | | | PST | | results section. | + +--------+ + + + | CBC W/DIFF, REFLEX | Routin | 08/03/2013 | | Results for this | | | e | 12:45 PM | | procedure are in the | | | | PST | | results section. | + +--------+ + + + | COMPLETE METABOLIC | Routin | 08/03/2013 | | Results for this | | SET | e | 12:45 PM | | procedure are in the | | (NA,K,CL,CO2,BUN,CRE | | PST | | results section. | | AT,GLUC,CA,AST,ALT,B | | | | | | FRED TOTAL,ALK | | | | | | PHOS,ALB,PROT TOTAL) | | | | | + +--------+ + + + | TYPE AND SCREEN | Routin | 08/03/2013 | | Results for this | | | e | 12:45 PM | | procedure are in the | | | | PST | | results section. | + +--------+ + + + | UA, DIPSTICK ONLY | Routin | 08/03/2013 | | Results for this | | | e | 12:35 PM | | procedure are in the | | | | PST | | results section. | + +--------+ + + + documented in this encounter Results OCCULT BLOOD, FECES, DIAGNOSTIC (08/03/2013 1:36 PM PST) + + + + + + | Component | Value | Ref Range | Performed | Pathologist | | | | | At | Signature | + + + + + + | OCCULT | NEGATIVE | NEGATIVE | [facility] | | | BLOOD, | | | A MEDICAL | | | FECES, | | | CENTER | | | SCREEN | | | | | + + + + + + + + | Specimen | + + | | + + + + + + + | Performing | Address | City/State/Zipcode | Phone Number | | Organization | | | | + + + + + | [facility] | And | [place], [place] | [phone] | | MEDICAL CENTER | [address] | [address] | | + + + + + TYPE AND SCREEN (08/03/2013 12:45 PM PST) + + + + + + | Component | Value | Ref Range | Performed | Pathologist | | | | | At | Signature | + + + + + + | ABO GROUP | O | | [facility] | | | | | | A MEDICAL | | | | | | CENTER | | + + + + + + | RH TYPE | POS | | [facility] | | | | | | A MEDICAL | | | | | | CENTER | | + + + + + + | ANTIBODY | NEGATIVE | NEGATIVE | [facility] | | | SCREEN | | | A MEDICAL | | [...] | + + + + + | [facility] | [address] | [place], [place] | [phone] | | MEDICAL CENTER | [address] | [address] | | + + + + + CBC W/DIFF REFLEX (08/03/2013 12:45 PM PST) + +-------+ + + + | Component | Value | Ref Range | Performed | Pathologist | | | | | At | Signature | + +-------+ + + + | WHITE BLOOD | 5.5 | 3.2 - 11.0 X10 | [facility] | | | CELL COUNT | | 3/uL | A MEDICAL | | | | | | CENTER | | + +-------+ + + + | HEMOGLOBIN | 15.1 | 12.0 - 18.0 | [facility] | | | | | g/dL | A MEDICAL | | | | | | CENTER | | + +-------+ + + + | RED BLOOD | 5.05 | 3.5 - 6.0 X10 | [facility] | | | CELL COUNT | | 6/uL | A MEDICAL | | | | | | CENTER | | + +-------+ + + + | HEMATOCRIT | 44.5 | 37.0 - 52.0 % | [facility] | | | | | | A MEDICAL | | | | | | CENTER | | + +-------+ + + + | MCV | 88.1 | 82 - 100 fL | [facility] | | | | | | A MEDICAL | | | | | | CENTER | | + +-------+ + + + | MCH | 30.0 | 28.0 - 34.7 pg | [facility] | | | | | | A MEDICAL | | | | | | CENTER | | + +-------+ + + + | MCHC | 34.0 | 32 - 36 g/dL | [facility] | | | | | | A MEDICAL | | | | | | CENTER | | + +-------+ + + + | RDW | 13.5 | 12 - 16 % | [facility] | | | | | | A MEDICAL | | | | | | CENTER | | + +-------+ + + + | PLATELET | 166 | 140 - 350 X10 3 | [facility] | | | COUNT | | | A MEDICAL | | | | | | CENTER | | + +-------+ + + + | MPV | 8.4 | 7.0 - 12.0 fL | [facility] | | | | | | A MEDICAL | | | | | | CENTER | | + +-------+ + + + | NEUTROPHIL | 52.8 | 40 - 80 % | [facility] | | | % | | | A MEDICAL | | | | | | CENTER | | + +-------+ + + + | LYMPHOCYTE | 37.3 | 15 - 45 % | [facility] | | | % | | | A MEDICAL | | | | | | CENTER | | + +-------+ + + + | EOS % | 2.9 | 0 - 6.0 % | [facility] [...] + + + | MONOCYTE % | 6.4 | 4.0 - 12.0 % | [facility] | | | | [...] + + + + | [facility] | [address] | [place], [place] | [phone] | | [facility] | [facility] | [address] | | + + + + + COMPLETE METABOLIC SET (NA,K,CL,CO2,BUN,CREAT,GLUC,CA,AST,ALT,BILI TOTAL,ALK PHOS,ALB,PROT TOTAL) (08/03/2013 12:45 PM PST) + +--------+ + + + | Component | Value | Ref Range | Performed | Pathologist | | | | | At | Signature | + +--------+ + + + | SODIUM, | 141 | 137 - 146 MEQ/L | [facility] | | | PLASMA | | | A MEDICAL | | | (LAB) | | | CENTER | | + +--------+ + + + | POTASSIUM, | 4.3 | 3.5 - 5.2 MEQ/L | [facility] [...] +--------+ + + + | CHLORIDE, | 105 | 98 - 106 MEQ/L | [facility] | | | PLASMA | | | A MEDICAL | | | (LAB) | | | CENTER | | + +--------+ + + + | ANION GAP | 10.3 | 8 - 16 MEQ/L | [facility] | | | | | | A MEDICAL | | | | | | CENTER | | + +--------+ + + + | GLUCOSE, | 104 | 70 - 105 MG/DL | [facility] | | | PLASMA | | | A MEDICAL | | | (LAB) | | | CENTER | | + +--------+ + + + | BUN, PLASMA | 10 | 8 - 30 MG/DL | [facility] | | | (LAB) | | | A MEDICAL | | | | | | CENTER | | + +--------+ + + + | CREATININE | 1.15 | 0.9 - 1.3 MG/DL | [facility] | | | PLASMA | | | A MEDICAL | | | (LAB) | | | CENTER | | + +--------+ + + + | BUN/CREATIN | 8 | 6 - 20 RATIO | [facility] | | | INE RATIO | | | A MEDICAL | | | | | | CENTER | | + +--------+ + + + | CALCIUM, | 9.7 | 8.5 - 10.8 | [facility] | | | PLASMA | | MG/DL | A MEDICAL | | | (LAB) | | | CENTER | | + +--------+ + + + | AST(SGOT) | 18 | 10 - 41 U/L | [facility] | | | | | | A MEDICAL | | | | | | CENTER | | + +--------+ + + + | ALT (SGPT) | 26 | 7 - 51 U/L | [facility] | | | | | | A MEDICAL | | | | | | CENTER | | + +--------+ + + + | ALK PHOS | 48 | 34 - 158 U/L | [facility] | | | | | | A MEDICAL | | | | | | CENTER | | + +--------+ + + + | TOTAL | 7.2 | 6.7 - 8.5 G/DL | [facility] | | | PROTEIN, | | | A MEDICAL | | | PLASMA | | | CENTER | | | (LAB) | | | | | + +--------+ + + + | ALBUMIN, | 4.4 | 3.5 - 5.0 G/DL | [facility] | | | PLASMA | | | A MEDICAL | | | (LAB) | | | CENTER | | + +--------+ + + + | BILIRUBIN | 0.4 | 0.2 - 1.6 MG/DL | [facility] | | | TOTAL | | | A MEDICAL | | | | | | CENTER | | + +--------+ + + + | LIPASE | 23 | 5 - 57 U/L | [facility] | | | (LAB) | | | A MEDICAL | | | | | | CENTER | | + +--------+ + + + | ESTIMATED | >60.0 | >60 | [facility] | | | GFR | | | A MEDICAL | | | | | | CENTER | | + +--------+ + + + | FASTING? | UNK | HR | [facility] | | | | | | A MEDICAL | | | | | | CENTER | | + +--------+ + + + + + | Specimen | + + | | + + + + + + + | Performing | Address | City/State/Zipcode | Phone Number | | Organization | | | | + + + + + | [facility] | [address] | [place] | [phone] | | MEDICAL CENTER | [facility] | [address] | | + + + + + NEREIDA MORILLO (08/03/2013 12:35 PM PST) + + + + + + | Component | Value | Ref Range | Performed | Pathologist | | | | | At | Signature | + + + + + + | COLOR(UR) | Light-Yellow | YELLOW | [facility] | | | | | | A MEDICAL | | | | | | CENTER | | + + + + + + | APPEARANCE | Clear | CLEAR | [facility] | | | | | | A MEDICAL | | | | | | CENTER | | + + + + + + | SPECIFIC | 1.014 | 1.005 - 1.030 | [facility] | [...] | + + + + + | [facility] | | [place] | [phone] | | [facility] | [facility] | [address] | | + + + + + documented in this encounter Visit Diagnoses Not on filedocumented in this encounter"
--- OUTSIDE RECORDS SUMMARY | ~2020-05-06 | XMS | Encounter Summary ---
Demographics + + + | Address | [address] | | | [place] [address] | + + + | Home Phone [...] + + + | Author | [facility] | + + + | Organization | [facility] | + + + | Address | Unknown | + + + | Phone | Unavailable | + + + Support + + + + + | Name | Relationship | Address | Phone | + + + + + | Neda Santos | ECON | [place] | | | | | [address] | | + + + + + Care Team Providers + +------+ + | Care Video Editing Intern Name | Role | Phone | + +------+ + | Iliana Parker DO | PCP | | + +------+ + Encounter Details +--------+ + + + + | Date | Type | Department | Care Team | Description | +--------+ + + + + | 08/28/ | Outside | [facility] | Iliana Parker, | | | 2017 | Referral | [facility] [address] | DO [address] | | | | Order | [address] | [place] [address] | | | | | [place] | [phone] | | | | | [address] | | | +--------+ + + + [...] filedocumented as of this encounter Results US SCROTUM & CONTENTS (09/03/2018 1:54 PM PST) + + | Specimen | + + | | + + + + + | Narrative | Performed At | + + + | [address] [place] [address] | [facility] | | [place] [address] [facility] | | [phone] Name: CHUCK SANTOS Phys: | RADIOLOGY | | ILIANA JAVED : 1975 Sex: M | | | CSN: [id number] MR# [id number] Exam Date: | | | 09/03/2018 EXAM: SCROTAL ULTRASOUND CLINICAL HISTORY: | | | Intermittent right-sided testicular pain. COMPARISON: 07/20/2016 | | | scrotal ultrasound. TECHNIQUE: Real-time sonographic images of | | | the testicles were obtained utilizing a 9.0 MHz transducer.Color | | | Doppler and spectral waveforms were used to evaluate blood flow to | | | the testicles and epididymes. FINDINGS: Right testicle: | | | Measures 3.1 cm x 4.2 cm x 2.1 cm. Normal arterial and venous | | | blood flow. No intratesticular mass. Normal echogenicity. | | | Left testicle: Measures 2.6 cm x 3.9 cm x 2.3 cm. Normal arterial | | | and venous blood flow. No intratesticular mass. Normal | | | echogenicity. Right epididymis: Normal blood flow. Normal | | | echogenicity. Left epididymis: Normal blood flow. Normal | | | echogenicity. Other findings: There are small bilateral simple | | | hydroceles. IMPRESSION: Small bilateral simple hydroceles. | | | Otherwise, normal scrotal ultrasound. REPORT SIGNED IN | | | OTHER VENDOR SYSTEM 09/03/2018 Reported by: WADE MARTÍNEZ MD | | | Electronically signed by: WADE MARTÍNEZ MD Transcribed | | | Date/Time: 09/03/2018 18:00 Pediatric Physician Assistant: FLUENCY | | + + + + + | Procedure Note | + + | Interface, Radiology Results - 09/03/2018 6:05 PM PST [address] | | [address] [place] [address] | | Name: CHUCK SANTOS Phys: ILIANA JAVED : 1975 Sex: M | | CSN: [id number] MR# [id number] Exam Date: 09/03/2018 EXAM:SCROTAL ULTRASOUND | | CLINICAL HISTORY:Intermittent right-sided testicular pain. COMPARISON:07/20/2016 scrotal | | ultrasound. TECHNIQUE:Real-time sonographic images of the testicles were obtained | | utilizinga 9.0 MHz transducer.Color Doppler and spectral waveforms were usedto evaluate | | blood flow to the testicles and epididymes. FINDINGS:Right testicle: Measures 3.1 cm x | | 4.2 cm x 2.1 cm. Normal arterialand venous blood flow. No intratesticular mass. | | Normal echogenicity. Left testicle: Measures 2.6 cm x 3.9 cm x 2.3 cm. Normal | | arterialand venous blood flow. No intratesticular mass. Normal echogenicity. Right | | epididymis: Normal blood flow. Normal echogenicity. Left epididymis: Normal blood | | flow. Normal echogenicity. Other findings: There are small bilateral simple hydroceles. | | IMPRESSION:Small bilateral simple hydroceles. Otherwise, normal scrotalultrasound. | | REPORT SIGNED IN OTHER VENDOR SYSTEM 09/03/2018 Reported by: WADE MARTÍNEZ MD | | Electronically signed by: WADE MARTÍNEZ MD Transcribed Date/Time: 09/03/2018 | | 18:00Transcriptionist: FLUENCY | | | |COMPARISON: | |07/20/2016 scrotal ultrasound. | | | |TECHNIQUE: | |Real-time sonographic images of the testicles were obtained utilizing | |a 9.0 MHz transducer.Color Doppler and spectral waveforms were used | |to evaluate blood flow to the testicles and epididymes. | | | |FINDINGS: | |Right testicle: Measures 3.1 cm x 4.2 cm x 2.1 cm. Normal arterial | |and venous blood flow. No intratesticular mass. Normal | |echogenicity. | | | |Left testicle: Measures 2.6 cm x 3.9 cm x 2.3 cm. Normal arterial | |and venous blood flow. No intratesticular mass. Normal echogenicity. | | | |Right epididymis: Normal blood flow. Normal echogenicity. | | | |Left epididymis: Normal blood flow. Normal echogenicity. | | | |Other findings: There are small bilateral simple hydroceles. | | | |IMPRESSION: | |Small bilateral simple hydroceles. Otherwise, normal scrotal | |ultrasound. | | | | | | | | REPORT SIGNED IN OTHER VENDOR SYSTEM 09/03/2018 | |Reported by: WADE MARTÍNEZ MD | | | |Electronically signed by: WADE MARTÍNEZ MD | | | |Transcribed Date/Time: 09/03/2018 18:00 | |Pediatric Physician Assistant: FLUENCY | | | | | | [...] + | Diagnosis | + + | Testicular pain - Primary Unspecified disorder of male genital organs | + + documented in this encounter"
--- OUTSIDE RECORDS SUMMARY | ~2020-05-06 | XMS | Encounter Summary ---
Demographics + + + | Address | [address] | | | [place] [address] | + + + | Home Phone [...] [place] | | | | | [address] | | + + + + + Care Team Providers + +------+ + | Care Barbering Instructor Name | Role | Phone | + +------+ + | Violeta Parker DO | PCP | | + +------+ + Encounter Details +--------+ + + + + | Date | Type | Department | Care Team | Description | +--------+ + + + + | 03/24/ | Procedure | Diagnostic Imaging | | | | 2018 | Pass | [facility] | | | | | | [address] | | | | | | [place] | | | | | | [address] | | | | | | [phone] | | | +--------+ + + + [...]
--- OUTSIDE RECORDS SUMMARY | ~2020-05-06 | XMS | Encounter Summary ---
Demographics + + + | Address | [address] | | | [place] [address] | + + + | Home Phone [...] [place] | | | | | [address] | | + + + + + Care Team Providers + +------+ + | Care Document Imaging Manager Name | Role | Phone | [...] | | CT ABDOMEN | The | [address] | | | | | AND PELVIS [address] | [place] | Phone: | | | | | IV CONTRAST | [address] | [phone] | | | | | [place] | Phone: | | | | | | ABDOMEN&PELV | [phone] | | | | | | IS | Fax: | | | | | | W/CONTRAST | [phone] | | +--------+--------+ + + + + [...] | | CT ABDOMEN | The | [address] | | | | | AND PELVIS W | [place] | Phone: | | | | | IV CONTRAST | [address] | [phone] | | | | | [place] | Phone: | | | | | | ABDOMEN&PELV | [phone] | | | | | | IS | Fax: | | | | | | W/CONTRAST | [phone] | | +--------+--------+ + + + + Encounter Details +--------+ + + + + | Date | Type | Department | Care Team | Description | +--------+ + + + + | 03/11/ | Hospital | Diagnostic Imaging | Humber[place], | | | 2019 | Encounter | [facility] | Angel Woodall MD [address] | | | | | [address] | [address] | | | | | [place], [place] | [place] | | | | | [address] | [address] | | | | | [phone] | [phone] | | | | | | | [...] | + + + | [address] [place] [address] | [facility] | | [place] [address] | DEPARTMENT | | [phone] Name: CHUCK SANTOS Phys: | RADIOLOGY | | ANGEL ARTHUR : 1975 Sex: M | | | CSN: [id number] MR# [id number] Exam Date: | | | 03/11/2019 EXAM: [...] Transcribed Date/Time: | | | 03/11/2019 09:45 Dialysis Technician: FLUENCY | | + + + + + | Procedure Note | + + | Interface, Radiology Results - 03/11/2019 9:49 AM PDT [address] | | [address] [place] [address] | | Name: CHUCK SANTOS Phys: ANGEL ARTHUR : 1975 Sex: M | | CSN: [id number] MR# [id number] Exam Date: 03/11/2019 EXAM:CT ABDOMEN AND | [...] | | |Transcribed Date/Time: 03/11/2019 09:45 | |Dialysis Technician: VAL | | | | | | [...]
--- OUTSIDE RECORDS SUMMARY | ~2020-05-06 | XMS | Encounter Summary ---
Demographics + + + | Address | [address] | | | [place] [address] | + + + | Home Phone | | + + + | Preferred Language | Unknown | + + + | Marital Status | Single | + + + | Gnosticist Affiliation | NRP | + + + [...] [place] | | | | | [address] | | + + + + + Care Team Providers + +------+ + | Care Oven Worker Name | Role | Phone | + +------+ + | Herbert Marie MD,MPH | PCP | Unavailable | + +------+ + Reason for Visit + + + | Reason | Comments | + + + | Refill Request | gabapentin 300 mg | + + + Encounter Details +--------+--------+ + + + | Date | Type | Department | Care Team | Description | +--------+--------+ + + + | 09/13/ | Refill | Family Medicine at | Herbert Marie, | Refill Request | | 2014 | | [facility] | ,[facility] | (gabapentin 300 mg ) | | | | Clinic [address] | | | | | | [address] [place] | | | | | | [address] | | | | | | [phone] | | | +--------+--------+ + + + [...]
--- OUTSIDE RECORDS SUMMARY | ~2020-05-06 | XMS | Encounter Summary ---
Demographics + + + | Address | [address] | | | [place] [address] | + + + | Home Phone | | + + + | Preferred Language | Unknown | + + + | Marital Status | Single | + + + | Hinduism Affiliation | NRP | + + + [...] [place] | | | | | [address] | | + + + + + Care Team Providers + +------+ + | Care Ballaster Name | Role | Phone | + +------+ + | Elena Violeta DO | PCP | | + +------+ + Reason for Visit + + + | Reason | Comments | + + + | Cough | I have coughed up some black "goo" over the past 2 days | + + + | Headache | about 2 days | + + + | Nausea | since last night | + + + Encounter Details +--------+ + + + + | Date | Type | Department | Care Team | Description | +--------+ + + + + | 04/14/ | Emergency | Emergency | Babita Lombardo, | | | 2018 | | Department at [facility] | MD [address] | | | | | Hospital [address] | [place], [place] | | | | | [place], | [address] | | | | | [place] [address] | [phone] | | | | | [phone] | | | +--------+ + + + [...] + + + | Blood Pressure | 134/89 | 04/14/2019 4:52 PM | | | | | PDT | | + + + + + | Pulse | 72 | 04/14/2019 4:52 PM | | | | | PDT | | + + + + + | Temperature | 36.7 C (98.1 F) | 04/14/2019 4:52 PM | | | | | PDT | | + + + + + | Respiratory Rate | 18 | 04/14/2019 4:52 PM | | | | | PDT | | + + + + + | Oxygen Saturation | 97% | 04/14/2019 4:52 PM | | | | | PDT [...] documented in this encounter Discharge Instructions Instructions Babita Lombardo MD - 04/14/2019Please promptly call the provider or clinic re commended by your ED physician after being discharged from the emergency department to [facility] a follow-up visit. Primary care provider clinics can be contacted Saturday through ay 8:00 AM to 5:00 PM and specialty clinics Saturday through Saturday 8:00 AM to 5:00 PM. You s hould try to be seen in follow-up or talk to the follow-up provider's nurse in the next 1 we eks if your symptoms have not resolved or you're still coughing up black or bloody sputum. You may be asked to follow-up with a different provider or clinic in order to get you seen s erin. We may contact you with further x-ray or laboratory findings after your emergency departmen t visit. Please make sure you have given accurate contact information to the emergency depa rtment staff and make sure to answer your phone the next several days. There may be significant savings available on your prescription by comparing local pharmacy pricing. Search the internet for 7write on your computer or upload the 7write application to your phone and type the name of your medication into the program. It will find the [facility] local pharmacy to get your medication filled. Thank you for letting us serve you today. AttachmentsThe following attachments cannot be sent through Care Everywhere.Sinusitis (Engl branden)documented in this encounter Medications at Time of [...] + + + +---------+ + + | doxycycline | Take 1 tablet by | 20 | 0 | 04/14/20 | | | hyclate 100 mg oral | mouth every twelve | tablet | | 19 | 9 | | tabletIndications: | hours for 10 days. | | | | | | sinusitis | (Pharmacist to | | | | | | | substitute salt form | | | | | | | as needed) | | | | | | | Indications: | | | | | | | sinusitis | | | | | + + + +---------+ + + documented as of this encounter Plan of Treatment Not on filedocumented as of this encounter Procedures + +--------+ + + + | Procedure Name | Priori | Date/Time | Associated Diagnosis | Comments | | | ty | | | | + +--------+ + + + | X-RAY CHEST 2 VIEW | Urgent | 04/14/2019 | | Results for this | | | | 3:18 PM | | procedure are in the | | | | PDT | | results section. | + +--------+ + + + | CBC W/DIFF, REFLEX | Urgent | 04/14/2019 | | Results for this | | | | 2:40 PM | | procedure are in the | | | | PDT | | results section. | + +--------+ + + + | CBC AND AUTO DIFF | Urgent | 04/14/2019 | | Results for this | | | | 2:40 PM | | procedure are in the | | | | PDT | | results section. | + +--------+ + + + | BASIC METABOLIC SET | Urgent | 04/14/2019 | | Results for this | | (NA, K, CL, TCO2, | | 2:40 PM | | procedure are in the | | BUN, CR, GLU, CA) | | PDT | | results section. | + +--------+ + + + documented in this encounter Results X-RAY CHEST 2 VIEW (04/14/2019 3:18 PM PDT) + + | Specimen | + + | | + + + + + | Narrative | Performed At | + + + | [address] [place] [address] | [facility] | | [place] [address] | DEPARTMENT OF | | [phone] Name: CHUCK SANTOS Phys: | RADIOLOGY | | N[place] : 1975 Sex: M CSN: | | | [id number] MR# [id number] Exam Date: 04/14/2019 | | | EXAM: TWO VIEW CHEST XRAY CLINICAL HISTORY: Cough | | | COMPARISON: 05/07/[address] TECHNIQUE: PA and lateral views | | | of the chest were obtained. FINDINGS: Lungs: No focal | | | infiltrate, pneumothorax, effusion, CHF or pulmonary edema. | | | Heart: Normal. Bones: Normal. IMPRESSION: No acute | | | cardiopulmonary process. REPORT SIGNED IN OTHER VENDOR | | | SYSTEM 04/14/2019 Reported by: WADE MARTÍNEZ MD | | | Electronically signed by: WADE MARTÍNEZ MD Transcribed | | | Date/Time: 04/14/2019 15:14 Road Grader: FLUENCY | | + + + + + | Procedure Note | + + | Interface, Radiology Results - 04/14/2019 3:19 PM PDT [address] | | [address] [place] [address] | | Name: CHUCK SANTOS Phys: NATHANIEL ALMONTE : 1975 Sex: M | | CSN: [id number] MR# [id number] Exam Date: 04/14/2019 EXAM:TWO VIEW CHEST XRAY | | CLINICAL HISTORY:Cough COMPARISON:05/07/[address] TECHNIQUE:PA and lateral views of | | the chest were obtained. FINDINGS:Lungs: No focal infiltrate, pneumothorax, effusion, | | CHF or pulmonaryedema. Heart: Normal. Bones: Normal. IMPRESSION:No acute | | cardiopulmonary process. REPORT SIGNED IN OTHER VENDOR SYSTEM 04/14/2019 Reported | | by: WADE MARTÍNEZ MD Electronically signed by: WADE MARTÍNEZ MD Transcribed | | Date/Time: 04/14/2019 15:14Transcriptionist: FLUENCY | | Exam Date: 04/14/2019 | | | |EXAM: | |TWO VIEW CHEST XRAY | | | |CLINICAL HISTORY: | |Cough | | | |COMPARISON: | |05/07/[address] | | | |TECHNIQUE: | |PA and lateral views of the chest were obtained. | | | |FINDINGS: | |Lungs: No focal infiltrate, pneumothorax, effusion, CHF or pulmonary | |edema. | | | |Heart: Normal. | | | |Bones: Normal. | | | |IMPRESSION: | |No acute cardiopulmonary process. | | | | | | REPORT SIGNED IN OTHER VENDOR SYSTEM 04/14/2019 | |Reported by: WADE MARTÍNEZ MD | | | |Electronically signed by: WADE MARTÍNEZ MD | | | |Transcribed Date/Time: 04/14/2019 15:14 | |Road Grader: FLUENCY | | | | | | | + + + +---------+ + + | Performing | Address | City/State/Zipcode | Phone Number | | Organization | | | | + +---------+ + + | [facility]MENT [facility] | | | | | RADIOLOGY | | | | + +---------+ + + CBC AND AUTO DIFF (04/14/2019 2:40 PM PDT) + +---------+ + + + | Component | Value | Ref Range | Performed | Pathologist | | | | | At | Signature | + +---------+ + + + | WHITE CELL | 8.72 | 3.50 - 10.80 | [facility] | | | COUNT | | K/cu mm | A MEDICAL | | | | | | CENTER | | + +---------+ + + + | RED CELL | 5.51 | 4.50 - 6.00 | [facility] | | | COUNT | | M/cu mm | A MEDICAL | | | | | | CENTER | | + +---------+ + + + | HEMOGLOBIN | 15.9 | 13.5 - 17.5 | [facility] | | | | | g/dL | A MEDICAL | | | | | | CENTER | | + +---------+ + + + | HEMATOCRIT | 47.6 | 41.0 - 53.0 % | [facility] | | | | | | A MEDICAL | | | | | | CENTER | | + +---------+ + + + | MCV | 86.4 | 80.0 - 96.0 fL | [facility] | | | | | | A MEDICAL | | | | | | CENTER | | + +---------+ + + + | MCH | 28.9 | 28.0 - 34.7 pg | [facility] | | | | | | A MEDICAL | | | | | | CENTER | | + +---------+ + + + | MCHC | 33.4 | 33.0 - 35.5 | [facility] | | | | | g/dL | A MEDICAL | | | | | | CENTER | | + +---------+ + + + | RDW | 13.1 | 11.5 - 14.5 % | [facility] | | | | | | A MEDICAL | | | | | | CENTER | | + +---------+ + + + | PLATELET | 230 | 150 - 400 K/cu | [facility] | | | COUNT | | mm | A MEDICAL | | | | | | CENTER | | + +---------+ + + + | MPV | 9.5 | 7.5 - 11.2 fL | [facility] | | | | | | A MEDICAL | | | | | | CENTER | | + +---------+ + + + | NRBC% | 0.0 | 0.0 - 0.3 % | [facility] | | | | | | A MEDICAL | | | | | | CENTER | | + +---------+ + + + | NRBC# | 0.00 | 0.00 - 0.02 | [facility] | | | | | K/cu mm | A MEDICAL | | | | | | CENTER | | + +---------+ + + + | NEUTROPHIL | 66.7 | 50.0 - 70.0 % | [facility] | | | % | | | A MEDICAL | | | | | | CENTER | | + +---------+ + + + | LYMPHOCYTE | 27.1 | 18.0 - 42.0 % | [facility] [...] + + + | EOS % | 0.6 (L) | 1.0 - 3.0 % | [facility] | | | | | | A MEDICAL | | | | | | CENTER | | + +---------+ + + + | BASO % | 0.2 | 0.0 - 2.0 % | [facility] | | | | | | A MEDICAL | | | | | | CENTER | | + +---------+ + + + | IG% | 0.2 | 0.0 - 1.0 % | [facility] | | | | | | A MEDICAL | | | | | | CENTER | | + +---------+ + + + | NEUTROPHIL | 5.82 | 1.80 - 7.70 | [facility] | | | # | | K/cu mm | A MEDICAL | | | | | | CENTER | | + +---------+ + + + | LYMPHOCYTE | 2.36 | 1.00 - 4.80 | [facility] | | | # | | K/cu mm | A MEDICAL | | | | | | CENTER | | + +---------+ + + + | MONOCYTE # | 0.45 | 0.10 - 0.90 | [facility] | | | | | K/cu mm | A MEDICAL | | | | | | CENTER | | + +---------+ + + + | EOS # | 0.05 | 0.00 - 0.50 | [facility] | | | | | K/cu mm | A MEDICAL | | | | | | CENTER | | + +---------+ + + + | BASO # | 0.02 | 0.00 - 0.10 | [facility] | | | | | K/cu mm | A MEDICAL | | | | | | CENTER | | + +---------+ + + + | IG# | 0.02 | 0.00 - 0.10 | [facility] | [...] | + + + + + | [facility] | And | [place], [place] | [phone] | | [facility] | [facility] | [address] | | + + + + + BASIC METABOLIC SET (NA, K, CL, TCO2, BUN, CR, GLU, CA) (04/14/2019 2:40 PM PDT) + +---------+ + + + | Component | Value | Ref Range | Performed | Pathologist | | | | | At | Signature | + +---------+ + + + | GLUCOSE, | 131 (H) | 70 - 105 mg/dL | [...] +---------+ + + + | CREATININE, | 1.3 | 0.9 - 1.3 mg/dL | [facility] [...] +---------+ + + + | CHLORIDE, | 104 | 96 - 106 mmol/L | [facility] [...] +---------+ + + + | CALCIUM, | 10.0 | 8.5 - 10.8 | [facility] | [...] | | A MEDICAL | | | [facility]OL[facility] | | | CENTER | | + +---------+ + + + | EGFR NON | >60 | >60 mL/min | [facility] | | | -ALIX | | | A MEDICAL | | | RICAN | | | CENTER | | + +---------+ + + + | ANION GAP | 10 | 7 - 16 mmol/L | [facility] | | | | [...] | + + + + + | [facility] | [address] | [place] | [phone] | | [facility] | [place] | [address] | | + + + + + documented in this encounter Visit Diagnoses + + | Diagnosis | + + | Acute frontal sinusitis, recurrence not specified - Primary | + + | Acute nonintractable headache, unspecified headache type | + + | Cough | + + documented in this encounter
--- OUTSIDE RECORDS SUMMARY | ~2020-05-06 | XMS | Encounter Summary ---
Demographics + + + | Address | [address] | | | [place] [address] | + + + | Home Phone [...] [place] | | | | | [address] | | + + + + + Care Team Providers + +------+ + | Care Banquet Director Name | Role | Phone | + +------+ + | Violeta Parker DO | PCP | | + +------+ + Encounter Details +--------+------+ + + + | Date | Type | Department | Care Team | Description | +--------+------+ + + + | 08/14/ | Lab | Laboratory at | | Encounter for | | 2019 | | [facility] | | screening for | | | | Center [address] | | diabetes mellitus | | | | [address] [place] | | (Primary Dx); | | | | [address] | | Encounter for | | | | [phone] | | screening for lipoid | | | | | | disorders | +--------+------+ + + + Social History [...] + | COMPLETE METABOLIC | Routin | 08/14/2019 | Encounter for | Results for this | | SET | e | 4:02 PM | screening for | procedure are in the | | (NA,K,CL,CO2,BUN,CRE | | PST | diabetes mellitus | results section. | | AT,GLUC,CA,AST,ALT,B | | | | | | FRED TOTAL,ALK | | | | | | PHOS,ALB,PROT TOTAL) | | | | | + +--------+ + + + | LIPID SET (TRIG, T | Routin | 08/14/2019 | Encounter for | Results for this | | CHOL, HDL, CALC LDL) | e | 4:02 PM | screening for lipoid | procedure are in the | | | | PST | disorders | results section. | + +--------+ + + + documented in this encounter Results LIPID SET (TRIG, T CHOL, HDL, CALC LDL) (08/14/2019 4:02 PM PST) + +---------+ + + + | Component | Value | Ref Range | Performed | Pathologist | | | | | At | Signature | + +---------+ + + + | CHOLESTEROL | 285 (H) | 101 - 199 mg/dL | [facility] | | | (LAB) | | | A MEDICAL | | | | | | CENTER | | + +---------+ + + + | TRIGLYCERID | 365 (H) | 45 - 150 mg/dL | [facility] | | | ES | | | A MEDICAL | | | | | | CENTER | | + +---------+ + + + | HDL | 33 (L) | >40 mg/dL | [facility] | | | CHOLESTEROL | | | A MEDICAL | | | | | | CENTER | | + +---------+ + + + | LDL | 179 (H) | <100 mg/dL | [facility] | | | CHOLESTEROL | | | A MEDICAL | | | , | | | CENTER | | | CALCULATED | | | | | + +---------+ + + + | VLDL | 73 (H) | 9 - 30 mg/dL | [facility] | | | CHOLESTEROL | | | A MEDICAL | | | , | | | CENTER | | | CALCULATED | | | | | + +---------+ + + + | NON-HDL | 252 (H) | <130 mg/dL | [facility] | | | CHOLESTEROL | | | A MEDICAL | | | | | | CENTER | | + +---------+ + + + | CARDIAC | 9 | | [facility] | | | RISK RATIO | | | A MEDICAL | | | | | | CENTER | | + +---------+ + + + | FASTING 8 | No | | [facility] | | | HOURS [place] | | [...] + + | [facility] | [address] | [place], [place] | [phone] | | [facility] | [facility] | [address] | | + + + + + COMPLETE METABOLIC SET (NA,K,CL,CO2,BUN,CREAT,GLUC,CA,AST,ALT,BILI TOTAL,ALK PHOS,ALB,PROT TOTAL) (08/14/2019 4:02 PM PST) + +--------+ + + + | Component | Value | Ref Range | Performed | Pathologist | | | | | At | Signature | + +--------+ + + + | GLUCOSE, | 105 | 70 - 105 mg/dL | [facility] | | | PLASMA | | | A MEDICAL | | | (LAB) | | | CENTER | | + +--------+ + + + | BUN, PLASMA | 18 | 6 - 26 mg/dL | [facility] | | | (LAB) | | | A MEDICAL | | | | | | CENTER | | + +--------+ + + + | CREATININE, | 1.1 [...] +--------+ + + + | POTASSIUM, | 4.7 | 3.4 - 5.3 | [facility] | | | PLASMA | | mmol/L | A MEDICAL | | | (LAB) | | | CENTER | | + +--------+ + + + | CHLORIDE, | 104 | 96 - 106 mmol/L | [facility] | | | PLASMA | | | A MEDICAL | | | (LAB) | | | CENTER | | + +--------+ + + + | TOTAL CO2, | 26 | 18 - 30 mmol/L | [facility] | | | PLASMA | | | A MEDICAL | | | (LAB) | | | CENTER | | + +--------+ + + + | CALCIUM, | 9.0 | 8.5 - 10.8 | [facility] | | | PLASMA | | mg/dL | A MEDICAL | | | (LAB) | | | CENTER | | + +--------+ + + + | BILIRUBIN | 0.2 | 0.2 - 1.2 mg/dL | [facility] | | | TOTAL | | | A MEDICAL | | | | | | CENTER | | + +--------+ + + + | TOTAL | 6.7 | 5.8 - 8.5 g/dL | [facility] | | | PROTEIN, | | | A MEDICAL | | | PLASMA | | | CENTER | | | (LAB) | | | | | + +--------+ + + + | ALBUMIN, | 4.3 | 3.5 - 5.0 g/dL | [facility] | | | PLASMA | | | A MEDICAL | | | (LAB) | | | CENTER | | + +--------+ + + + | ALK PHOS | 74 | 32 - 180 U/L | [facility] | | | | | | A MEDICAL | | | | | | CENTER | | + +--------+ + + + | AST(SGOT) | 19 | 10 - 41 U/L | [facility] | | | | | | A MEDICAL | | | | | | CENTER | | + +--------+ + + + | ALT (SGPT) | 52 (H) | 7 - 51 U/L | [facility] | | | | | | A MEDICAL | | | | | | CENTER | | + +--------+ + + + | EGFR | >60 | >60 mL/min | [facility] | | | - | | | A MEDICAL | | | [facility]AMBIAN | | | CENTER | | + +--------+ + + + | EGFR NON | >60 | >60 mL/min | [facility] | | | -ALIX | | | A MEDICAL | | | RICAN | | | CENTER | | + +--------+ + + + | ANION GAP | 11 | 7 - 16 mmol/L | [facility] | | | | | | A MEDICAL | | | | | | CENTER | | + +--------+ + + + | BUN/CREATIN | 16 | 6 - 20 | [facility] | | | INE RATIO | | | A MEDICAL | | | | | | CENTER | | + +--------+ + + + | FASTING 8 | No | | [facility] | | | HOURS [place] [...] using the MDRD equation recommended by the [facility] | | Kidney Disease Education Program. Estimated GFR Interpretive | [facility] | | Information: <60 mL/min/1.73 sq m Chronic Kidney | | | Disease <15 mL/min/1.73 sq m Kidney Failure | | | Estimated GFR greater than 60 mL/min/1.73 sq m is of limited clinical | | | value. The MDRD equation is not valid in the following situations: | | | - Patients under 18 years of age - Severe malnutrition or obesity | | | - Vegetarian diet - Rapidly changing kidney function - Amputees, | | | paraplegics, or other muscle-wasting diseases | | + + + + + + + + | Performing | Address | City/State/Zipcode | Phone Number | | Organization | | | | + + + + + | [facility] | And | [place] | [phone] | | [facility] | [facility] | [address] | | + + + + + documented in this encounter Visit Diagnoses + + | Diagnosis | + + | Encounter for screening for diabetes mellitus - Primary Screening for diabetes | | mellitus | + + | Encounter for screening for lipoid disorders Screening for lipoid disorders | + + documented in this encounter"
--- OUTSIDE RECORDS SUMMARY | ~2020-05-06 | XMS | Encounter Summary ---
Demographics + + + | Address | [address] | | | [place] [address] | + + + | Home Phone [...] Author + + + | Author | [facility] | + + + | Organization | [facility] | + + + | Address | Unknown | + + + | Phone | Unavailable | + + + Support + + + + + | Name | Relationship | Address | Phone | + + + + + | Neda Castañeda | ECON | [place] | | | | | [address] | | + + + + + Care Team Providers + +------+ + | Care Gas Pumping Station Supervisor Name | Role | Phone | + +------+ + | Nathalie Castillo | PCP | | + +------+ + Encounter Details +--------+ + + + + | Date | Type | Department | Care Team | Description | +--------+ + + + + | 11/28/ | Results | NON-[facility] EPIC | Markell Daniel PA | | | 2011 | Only | Department | [facility] | | | | | | [facility] [address] | | | | | | [address] | | | | | | [place] [address] | | | | | | [phone] | | | | | | | [...] + + | BASIC METABOLIC SET | Routin | 11/29/2011 | | Results for this | | (NA, K, CL, TCO2, | e | 11:24 AM | | procedure are in the | | BUN, CR, GLU, CA) | | PST | | results section. | + +--------+ + + + documented in this encounter Results BASIC METABOLIC SET (NA, K, CL, TCO2, BUN, CR, GLU, CA) (11/29/2011 11:24 AM PST) + + + + + + | Component | Value | Ref Range | Performed | Pathologist | | | | | At | Signature | + + + + + + | SODIUM, | 140 | 137 - 146 MEQ/L | [facility] | | | PLASMA | | | A MEDICAL | | | (LAB) | | | CENTER | | + + + + + + | POTASSIUM, | 4.0 | 3.5 - 5.2 MEQ/L | [facility] | | | PLASMA | | | A MEDICAL | | | (LAB) | | | CENTER | | + + + + + + | CO2 | 27 | 22 - 28 MEQ/L | [facility] | | | | | | A MEDICAL | | | | | | CENTER | | + + + + + + | CHLORIDE, | 107 (H) | 98 - 106 MEQ/L | [facility] | | | PLASMA | | | A MEDICAL | | | (LAB) | | | CENTER | | + + + + + + | ANION GAP | 10.0 | 8 - 16 MEQ/L | [facility] | | | | | | A MEDICAL | | | | | | CENTER | | + + + + + + | GLUCOSE, | 94 | 70 - 105 MG/DL | [facility] | | | PLASMA | | | A MEDICAL | | | (LAB) | | | CENTER | | + + + + + + | BUN, PLASMA | 17 | 8 - 30 MG/DL | [facility] | | | (LAB) | | | A MEDICAL | | | | | | CENTER | | + + + + + + | CREATININE | 1.36 (H) | 0.9 - 1.3 MG/DL | [facility] | | | PLASMA | | | A MEDICAL | | | (LAB) | | | CENTER | | + + + + + + | BUN/CREATIN | 12 | 6 - 20 RATIO | [facility] | | | INE RATIO | | | A MEDICAL | | | | | | CENTER | | + + + + + + | CALCIUM, | 9.6 | 8.5 - 10.8 | [facility] | | | PLASMA | | MG/DL | A MEDICAL | | | (LAB) | | | CENTER | | + + + + + + | ESTIMATED | 63.8 | >60 | [facility] | | | GFR | | | A MEDICAL | | | | | | CENTER | | + + + + + + | FASTING? | N/A | HR | [facility] | | | | | | A MEDICAL | | | | | | CENTER | | + + + + + + + + | Specimen | + + | | + + + + + + + | Performing | Address | City/State/Zipcode | Phone Number | | Organization | | | | + + + + + | [facility] | [address] | [place], [place] | [phone] | | MEDICAL CENTER | [address] | [address] | | + + + + + | [facility] | [address] | [place], [place] | | | MEDICAL CENTER | [address] | [address] | | + + + + + documented in this encounter Visit Diagnoses Not on filedocumented in this encounter"
--- OUTSIDE RECORDS SUMMARY | ~2020-05-06 | XMS | Encounter Summary ---
Demographics + + + | Address | [address] | | | [place] [address] | + + + | Home Phone | | + + + | Preferred Language | Unknown | + + + | Marital Status | Single | + + + | Congregational Affiliation | NRP | + + + | Race | White | + + + | Ethnic Group | Not or | + + + Author + + + | Author | [facility] | + + + | Organization | [facility] | + + + | Address | Unknown | + + + | Phone | Unavailable | + + + Support + + + + + | Name | Relationship | Address | Phone | + + + + + | Neda Castañeda | ECON | [place] | | | | | [address] | | + + + + + Care Team Providers + +------+ + | Care Cobbler Upper Name | Role | Phone | + +------+ + | Herbert Marie MD,MPH | PCP | Unavailable | + +------+ + Encounter Details +--------+ + + + + | Date | Type | Department | Care Team | Description | +--------+ + + + + | 06/24/ | MyChart | Family Medicine at | Herbert Marie, | chickenpox | | 2016 | Encounter | [facility] [address] ,[facility] | | | | [address] | | | | | | [place] | | | | | | [address] | | | | | | [phone] | | | +--------+ + + + [...]
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
--- OUTSIDE RECORDS SUMMARY | ~2020-05-06 | XMS | Encounter Summary ---
Demographics + + + | Address | GENERAL DELIVERY | | | [place] [address] | + + + | Home Phone [...] [place] | | | | | [address] | | + + + + + Care Team Providers + +------+ + | Care Wind Technician Name | Role | Phone | + +------+ + | Herbert Marie MD,MPH | PCP | Unavailable | + +------+ + Reason for Visit + + + | Reason | Comments | + + + | Refill Request | Tizanidine 4 mg | + + + Encounter Details +--------+ + + + + | Date | Type | Department | Care Team | Description | +--------+ + + + + | 06/24/ | Telephone | [facility] | Herbert Marie, | Refill Request | | 2017 | | Medicine [address] | ,[facility]H | (Tizanidine 4 mg) | | | | [address] [place], | | | | | | [place] [address] | | | | | | [phone] | | | +--------+ + + + [...]
--- OUTSIDE RECORDS SUMMARY | ~2020-05-06 | XMS | Encounter Summary ---
Demographics + + + | Address | GENERAL DELIVERY | | | [place] [address] | + + + | Home Phone [...] [place] | | | | | [address] | | + + + + + Care Team Providers + +------+ + | Care Forestry Professor Name | Role | Phone | [...] Description | +--------+--------+ + + + | 12/19/ | Refill | [facility] | Miguel A Peraza PA-C | Refill Request | | 2017 | | Medicine [address] | [address] | (Gabapentin 300 mg) | | | | [address] [place], | [place], [place] | | | | | [place] [address] | [address] | | | | | [phone] | [phone] | | | | | | | [...]
--- OUTSIDE RECORDS SUMMARY | ~2020-05-06 | XMS | Encounter Summary ---
Demographics + + + | Address | GENERAL DELIVERY | | | [place] [address] | + + + | Home Phone | | + + + | Preferred Language | Unknown | + + + | Marital Status | Single | + + + | Jewish Affiliation | NRP | + + + [...] [place] | | | | | [address] | | + + + + + Care Team Providers + +------+ + | Care Laminating Machine Operator Name | Role | Phone | + +------+ + | Herbert Marie MD,MPH | PCP | Unavailable | + +------+ + Reason for Visit + + + | Reason | Comments | + + + | Er Visit Follow-up | pt was seen in the ER on 11/14/2015 due to diarrhea was given | | | Ondansetron and hydrocodone, pt states he was given IV fluid, pt | | | states he feels weak and body aches, still having sweats.pt | | | states he is still having abdomen pain. | + + + Encounter Details +--------+---------+ + + + | Date | Type | Department | Care Team | Description | +--------+---------+ + + + | 11/15/ | Office | Family Medicine at | Marva Alvarado, | Gastroenteritis, | | 2016 | Visit | [facility] L[facility] | [address] | infectious (Primary | | | | Clinic [address] | [place], [place] | Dx) | | | | [place], [place] | [address] | | | | | [address] | [phone] | | | | | [phone] | | | +--------+---------+ + + + [...] + + + | Blood Pressure | 112/74 | 11/15/2015 10:01 AM | | | | | PST | | + + + + + | Pulse | 85 | 11/15/2015 10:01 AM | | | | | PST | | + + + + + | Temperature | 37.1 C (98.7 F) | 11/15/2015 10:01 AM | | | | | PST | | + + + + + | Respiratory Rate | - | - | | + + + + + | Oxygen Saturation | 96% | 11/15/2015 10:01 AM | | | | | PST | | + + + + + | Inhaled Oxygen | - | - | | | Concentration | | | | + + + + + | Weight | 91.1 kg (200 lb 12.8 | 11/15/2015 10:01 AM | | | | oz) | PST | | + + + + + | Height | 170.2 cm (5' 7") | 11/15/2015 9:55 AM | | | | | PST | | + + + + + | Body Mass Index | 31.45 | 11/15/2015 9:55 AM | | | | | PST | | + + + + + documented in this encounter Patient Instructions Patient Instructions Marva Alvarado MD - 11/15/2015 10:14 AM PSTKeep your diet bland tod ay: chicken broth and crackers with rest. Electronically signed by Marva Alvarado MD at 10:15 AM PST documented in this encounter Progress Notes Marva Alvarado MD - 11/15/2015 10:08 AM PSTFormatting of this note might be different fr om the original. SUBJECTIVE CC: Chief Complaint Patient presents with Er Visit Follow-up pt was seen in the ER on 11/14/2015 due to diarrhea was given Ondansetron and hydrocodone, pt states he was given IV fluid, pt states he feels weak and body aches, still having sweat s.pt states he is still having abdomen pain. HPI: Mendez presents the day after ED evaluation and stabilization after diarrheal illness a nd receiving IV Fluids. Has not tried anything by mouth, not feeling nauseated but is feelin g warm. Went home and slept ok at home. NO travel recently, no sick contacts, noticed diarrh ea has tapered off quite a bit. Denies fevers, but has had some chills, no more stool, nause a improved, not using the hydrocodone given to him in the ED. ROS: See HPI. History Substance Use Topics Smoking status: Former Smoker Smokeless tobacco: Not on file Alcohol Use: No OBJECTIVE BP 112/74 | Pulse 85 | Temp 37.1 C (98.7 F) | Ht 1.702 m (5' 7") | Wt 91.082 kg (200 lb 12.8 oz) | SpO2 96% | BMI 31.44 kg/(m^2) Estimated body mass index is 31.44 kg/(m^2) as calculated from the following: Height as of this encounter: 1.702 m (5' 7"). Weight as of this encounter: 91.082 kg (200 lb 12.8 oz). Physical Exam Constitutional: He appears well-developed and well-nourished. No distress. Tired, mildly ill appearing Eyes: Conjunctivae and EOM are normal. Pupils are equal, round, and reactive to light. Cardiovascular: Normal rate and regular rhythm. Exam reveals no friction rub. No murmur heard. Pulmonary/Chest: Effort normal and breath sounds normal. No respiratory distress. He has no wheezes. He has no rales. Abdominal: Soft. Bowel sounds are decreased. There is no tenderness. There is no rigidity a nd no CVA tenderness. Skin: He is not diaphoretic. ASSESSMENT/PLAN Mendez was seen today for er visit follow-up. Diagnoses and all orders for this visit: Gastroenteritis, infectious Comments: viral in etiology, is doing better, cont bland diet, rest today Other orders - ondansetron ODT 4 mg oral tablet,disintegrating; Dissolve 1 tablet in mouth every twe lve hours as needed. No follow-up information. documented in this e ncounter Plan of Treatment Not on filedocumented as of this encounter Visit Diagnoses + + | Diagnosis | + + | Gastroenteritis, infectious - Primary Infectious colitis, enteritis, and | | gastroenteritis | + + documented in this encounter
--- OUTSIDE RECORDS SUMMARY | ~2020-05-06 | XMS | Encounter Summary ---
Demographics + + + | Address | GENERAL DELIVERY | | | [place] [address] | + + + | Home Phone [...] Author + + + | Author | [facility] | + + + | Organization | [facility] | + + + | Address | Unknown | + + + | Phone | Unavailable | + + + Support + + + + + | Name | Relationship | Address | Phone | + + + + + | Neda Castañeda | ECON | [place] | | | | | [address] | | + + + + + Care Team Providers + +------+ + | Care Bankruptcy Law Specialist Name | Role | Phone | [...] | | 2017 | | Department at [facility] | G, DO [address] | | | | | Hospital [address] [place], [place] | | | | | [place], | [address] | | | | | [place] [address] | [phone] | | | | | [phone] | | | +--------+ + + + [...] be sent through Care Everywhere.Hemorrhoidectom y: Post-op ([place]izen [place])Hemorrhoids ([place]izen [place])Blood Pressure: Elevated (Citizen [place])documented in thi s encounter Medications at Time [...] + + + | [facility] | [id number] | | [facility] | | | | [id number] | | MEDICAL | | | | [...] ------- ---- 09/06/2018 00:37 | | | [facility] [place] [place] Emergency | | | [phone]. Rectal pain x1 week / Bleeding / Diarrhea ED VISIT | | | COUNT (12 MO.) Visits Location ------ --------- 4 | | | [place] [address] [address] | | | [facility] 5 Total Note: Visits indicate total known | | | visits. | | | | | | --- CARE PROVIDERS Name | | | Phone | | | Type | | | Service Dates ---- | | | ----- | | | ---- | | | | | | ILIANA JAVED | | | [id number] Student in an Organized Health Care | | | Education/Training Program Unknown - Current TAMRA MEDRANO | | | Unknown | | | Physician Chief Dog License Inspector | | | 11/14/2015 - Current ILIANA JAVED | | | at [facility] [place] Unknown | | | Primary Care | | | 11/14/2015 - Current TAMRA MEDRANO at [place] | | | [facility] [id number] Primary | | | Care | | | 11/14/2015 - Current [facility] | | | [phone] | | | Primary Care | | | 11/15/2015 - Current [facility] | | | Living [phone] | | | Mental Health Provider | | | 08/18/2014 - Current | | + + + + + + + + | Performing | Address | City/State/Zipcode | Phone Number | | Organization | | | | + + + + + | [facility] | [address] | [place], [place] | [phone] | | TE[employer] | [address] | [address] | | + + + + + [...]
--- OUTSIDE RECORDS SUMMARY | ~2020-05-06 | XMS | Encounter Summary ---
Demographics + + + | Address | GENERAL DELIVERY | | | [place] [address] | + + + | Home Phone | | + + + | Preferred Language | Unknown | + + + | Marital Status | Single | + + + | Spiritism Affiliation | NRP | + + + [...] [place] | | | | | [address] | | + + + + + Care Team Providers + +------+ + | Care Foundry Helper Name | Role | Phone | + +------+ + | Herbert Marie MD,MPH | PCP | Unavailable | + +------+ + Reason for Visit + + + | Reason | Comments | + + + | Cholesterol | medication recommended | + + + Encounter Details +--------+ + + + + | Date | Type | Department | Care Team | Description | +--------+ + + + + | 09/12/ | MyChart | [facility] | Marie, Herbert C, | lab | | 2016 | Encounter | Medicine [address] | ,[facility]H | | | | | [address] [place], | | | | | | [place] [address] | | | | | | [phone] | | | +--------+ + + + [...] Mixed hyperlipidemia - Primary | + + documented in this encounter"
--- OUTSIDE RECORDS SUMMARY | ~2020-05-06 | XMS | Encounter Summary ---
Demographics + + + | Address | GENERAL DELIVERY | | | [place] [address] | + + + | Home Phone | | + + + | Preferred Language | Unknown | + + + | Marital Status | Single | + + + | Anabaptist Affiliation | NRP | + + + [...] [place] | | | | | [address] | | + + + + + Care Team Providers + +------+ + | Care Benzene Washer Name | Role | Phone | + +------+ + | Violeta Parker DO | PCP | | + +------+ + Encounter Details +--------+ + + + + | Date | Type | Department | Care Team | Description | +--------+ + + + + | 02/13/ | Document-Sc | [facility] | Humberto, | | | 2019 | christopher | Surgery Clinic [address] | Angel Woodall MD [address] | | | | | [address] The | E The | | | | | [place], [place] | [place], [place] | | | | | [address] | [address] | | | | | [phone] | [phone] | | | | | | | [...]
--- OUTSIDE RECORDS SUMMARY | ~2020-05-06 | XMS | Encounter Summary ---
Demographics + + + | Address | GENERAL DELIVERY | | | [place] [address] | + + + | Home Phone | | + + + | Preferred Language | Unknown | + + + | Marital Status | Single | + + + | Sabianist Affiliation | NRP | + + + | Race | White | + + + | Ethnic Group | Not or | + + + Author + + + | Author | [facility] | + + + | Organization | [facility] | + + + | Address | Unknown | + + + | Phone | Unavailable | + + + Support + + + + + | Name | Relationship | Address | Phone | + + + + + | Neda Santos | ECON | [place] | | | | | [address] | | + + + + + Care Team Providers + +------+ + | Care Train Control Electronic Technician Name | Role | Phone | + +------+ + | Iliana Parker DO | PCP | | + +------+ + Encounter Details +--------+ + + + + | Date | Type | Department | Care Team | Description | +--------+ + + + + | 02/11/ | Transcribe | [facility] | Transcribe | | | 2019 | Orders | [facility] [address] | Encounter, Provider, | | | | | [address] | [address] | | | | | [place] | [facility] [place] [address] | | | | | [address] | | | +--------+ + + + [...] | + + + | [address] [place] [address] | [facility] | | [place] [address] | DEPARTMENT OF | | [phone] Name: CHUCK SANTOS Phys: | RADIOLOGY | | ILIANA JAVED : 1975 Sex: M | | | CSN: [id number] MR# [id number] Exam Date: | | | 03/03/2019 EXAM: [...] Transcribed Date/Time: 03/03/2019 08:11 | | | Stained Glass Window Designer: FLUENCY | | + + + + + | Procedure Note | + + | Interface, Radiology Results - 03/03/2019 8:15 AM PDT [address] | | [address] [place] [address] | | Name: TOMCHUCK Phys: TELLOILIANA M : 1975 Sex: M | | CSN: [id number] MR# [id number] Exam Date: 03/03/2019 EXAM:[facility] | [...] | | |Transcribed Date/Time: 03/03/2019 08:11 | |Stained Glass Window Designer: VAL | | | | | | [...]
--- OUTSIDE RECORDS SUMMARY | ~2020-05-06 | XMS | Encounter Summary ---
Demographics + + + | Address | GENERAL DELIVERY | | | [place] [address] | + + + | Home Phone | | + + + | Preferred Language | Unknown | + + + | Marital Status | Single | + + + | Orthodoxy Affiliation | NRP | + + + [...] [place] | | | | | [address] | | + + + + + Care Team Providers + +------+ + | Care Vb Net Developer Name | Role | Phone | [...] | | | | | | [place] [address] | | | | | | [phone] | | | +--------+--------+ + + + [...]
--- OUTSIDE RECORDS SUMMARY | ~2020-05-06 | XMS | Encounter Summary ---
Demographics + + + | Address | [place] DELIVERY | | | [place] [address] | + + + | Home Phone [...] + + + | Author | [facility] | + + + | Organization | [facility] | + + + | Address | Unknown | + + + | Phone | Unavailable | + + + Support + + + + + | Name | Relationship | Address | Phone | + + + + + | Neda Castañeda | ECON | [place] | | | | | [address] | | + + + + + Care Team Providers + +------+ + | Care Piccolo Mechanic Name | Role | Phone | [...] | [place], | | | | | Family | H[place], | Angel Woodall, | | | | | history of | Angel Woodall | [address] | | | | | colon cancer | [address] | The | | | | | History of | The | [place], [place] | | | | | adenomatous | [place] | [address] | | | | | polyp of | [address] | Phone: | | | | | colon | Phone: | [phone] | | | | | Thrush | [phone] | Fax: | | | | | Procedures | Fax: | [phone] | | | | | REQUEST TO | [phone] | | | | | | SURGERY | | | | | | | TIE MAKER | | | | | | | ND | | | | | | | COLONOSCOPY, | | | | | | | DIAG INCL | | | | | | | SPEC COLLEC | | | | | | | ND | | | | | | | COLONOSCOPY, | | | | | | | REMV FOREIGN | | | | | | | BODY(S) ND | | | | | | | | | | | | | | COLONOSCOPY, | | | | | | | FLEX, | | | | | | | W/BIOPSY ND | | | | | | | | | | | | | | COLONOSCPY,F | | | | | | | NIVIA,W/DIR | | | | | | | SUBMUC | | | | | | | INJECT ND | | | | | | | COLONOSCOPY, | | | | | | | FLEX,W/CONTR | | | | | | | OL BLEED ANY | | | | | | | METHOD ND | | | | | | | COLONOSCOPY, | | | | | | | FLEX, W | | | | | | | REMV LESN BY | | | | | | | HOT BIOPSY | | | | | | | FORCEP ND | | | | | | | COLONOSCOPY, | | | | | | | REMV LESN BY | | | | | | | SNARE | | | | | | | TECHNIQUE | | | | | | | ND | | | | | | | COLONOSCOPY, | | | | | | | FLEX W | | | | | | | TRANSENDOSCO | | | | | | | PIC BALLOON | | | | | | | DILAT ND | | | | | | | COLONOSCOPY, | | | | | | | FLEXIBLE; W | | | | | | | ABLATION OF | | | | | | | TUMOR(S), | | | | | | | POLYP(S), OR | | | | | | | OTHER | | | | | | | LESION(S) | | | | | | | ND | | | | | | | COLONOSCOPY, | | | | | | | FLEXIBLE; W | | | | | | | ENDOSCOPIC | | | | | | | STENT | | | | | | | PLACEMENT | | | | | | | ND | | | | | | | COLONOSCOPY, | | | | | | | FLEXIBLE; W | | | | | | | ENDOSCOPIC | | | | | | | MUCOSAL | | | | | | | RESECTION | | | | | | | ND UPPER GI | | | | | | | ENDOSCOPY,DI | | | | | | | AGNOSIS ND | | | | | | | UPPER GI | | | | | | | ENDOSCOPY,BI | | | | | | | OPSY ND UP | | | | | | | GI | | | | | | | ENDOSCOPY,DI | | | | | | | LATN W GUIDE | | | | | | | Procedure: | | | | | | | EGD and | | | | | | | colonoscopy | | | | | | | Location: | | | | | | | Endoscopy | | | | | | | Suite | | | | | | | Laterality: | | | | | | | None | | | +--------+--------+ + + + + Encounter Details +--------+ + + + + | Date | Type | Department | Care Team | Description | +--------+ + + + + | 09/04/ | Hospital | Endoscopy | [place], | | | 2019 | Encounter | Department at [facility] | Angel Woodall MD [address] | | | | | Hospital [address] | | | | | St [place], | [place], [place] | | | | | [place] [address] | [address] | | | | | [phone] | [phone] | | | | | | | [...] + + + | Blood Pressure | 117/78 | 09/04/2019 12:10 PM | | | | | PST | | + + + + + | Pulse | 64 | 09/04/2019 12:10 PM | | | | | PST | | + + + + + | Temperature | 36.6 C (97.9 F) | 09/04/2019 9:55 AM | | | | | PST | | + + + + + | Respiratory Rate | 16 | 09/04/2019 12:10 PM | | | | | PST | | + + + + + | Oxygen Saturation | 98% | 09/04/2019 12:10 PM | | | | | PST | | + + + + + | Inhaled Oxygen | - | - | | | Concentration | | | | + + + + + | Weight | 83.9 kg (185 lb) | 09/04/2019 9:57 AM | | | | | PST | | + + + + + | Height | 165.1 cm (5' 5") | 09/04/2019 9:57 AM | | | | | PST | | + + + + + | Body Mass Index | 30.79 | 09/04/2019 9:57 AM | | | | | PST | | + + + + + documented in this encounter Discharge Instructions Instructions Zhou Johnson RN - 09/03/2019The medications you have received toda y for your procedure will remain in your body for some time. You may experience dizziness, d rowsiness, amnesia, dry mouth and/or lightheadedness. Your sense of balance, and fine muscle control may be affected. Your reaction time will be slowed, making activities like driving dangerous. You may not recognize any of the changes. Therefore, to assure a safe and complet e recovery, we ask you to follow these strict [...] than 101 degrees F.) Difficulty breathing [facility] Bill Processor [phone] documented in this encounter Medications at Time [...] + | SURGICAL PATHOLOGY | Routin | 09/04/2019 | | Results for this | | | e | 11:23 AM | | procedure are in the | | | | PST | | results section. | + +--------+ + + + | PROCEDURE NOTE | Routin | 09/04/2019 | | Results for this | | | e | 9:15 AM | | procedure are in the | | | | PST | | results section. | + +--------+ + + + | EGD | | 09/04/2019 | | Results for this | | | | 12:00 AM | | procedure are in the | | | | PST | | results section. | + +--------+ + + + documented in this encounter Results SURGICAL PATHOLOGY (09/04/2019 11:23 AM PST) + + + + + + | Component | Value | Ref Range | Performed | Pathologist | | | | | At | Signature | + + + + + + | Final | Colon polyps, biopsy: - | | [facility] | Electronically | | Pathologic | Tubular adenoma, three | | [facility] | signed by Marline | | Diagnosis | fragments.Case seen | | CENTER | MD Stanley on | | | by:FELTON Florentino | | | 09/09/2019 at | | | Code: 82059 | | | 2:46 PM | | | | | | | | |CPT Code: 45723 | | | | + + + + + + | Gross | One container received | | [facility] | | | Description | with formalin and | | [facility] | | | | patient's identifying | | CENTER | | | | information.A. Colon | | | | | | polyps, biopsy: 6 matson | | | | | | fragments, 3-7 mm each, | | | | | | entirely submitted in | | | | | | one cassette. | | | | + + + + + + + + | Specimen | + + | Tissue - Colon | | structure (body | | structure) | + + + + + + + | Performing | Address | City/State/Zipcode | Phone Number | | Organization | | | | + + + + + | [facility] | [address] | [place] | [phone] | | [facility] | [facility] | [address] | | + + + + + PROCEDURE NOTE (09/04/2019 9:15 AM PST) + + + | Narrative | Performed At | + + + | Angel Arthur MD 09/04/2019 11:26 AM Date of | | | Procedure: 09/04/2019 Procedure: Esophagogastroduodenoscopy, | | | colonoscopy with polypectomy Surgeon: Humberto Pre-Op Dx: | | | History of oral thrush, history of colon polyps Post-Op Dx: Normal | | | EGD, multiple colon polyps Findings: Sub 5 mm colon polyps | | | Procedure in detail: The patient was brought to the endoscopy | | | suite and time-out was performed. Monitoring and sedation were | | | performed. The gastroscope was used to intubate the esophagus. The | | | scope was advanced under direct visualization. The mucosa of the | | | esophagus was normal, and the z line was intact. There was no sign | | | of oral or esophageal thrush. The stomach was entered and | | | insufflated with CO2 gas. The duodenum was intubated without | | | complication and appeared normal. The gastric mucosa The scope | | | was retroflexed and the cardia was inspected and was normal. The | | | scope was removed. A digital rectal exam was performed, which | | | revealed no masses. The video colonoscope was passed through the | | | anus proximally to the cecum under direct visualization. The | | | appendiceal orifice and ileocecal valve were identified and | | | photographed. The colonoscope was slowly withdrawn, while | | | circumfrentially observing all mucosal surfaces. The quality of | | | the prep was adequate. There were small polyps throughout the colon. | | | There were a total of 6 small polyps removed with the snare. | | | The rectum was normal. The scope was removed. The patient | | | tolerated the procedure well and was sent to recovery without any | | | apparent complications. Condition: Stable to recovery and then to | | | home. ANGEL ARTHUR MD | | + + + EGD (09/04/2019 12:00 AM PST) + + + | [...] +-------+------+------+ | dexamethasone (DECADRON) | Given | 09/04/20 | 10 mg | | | | injection 10 mg 10 mg, | | 19 10:02 | | | | | intravenous, PROCEDURE PRN, 1 | | AM PST | | | | | dose, Starting Sat09/04/19 at | | | | | | | 0748, Until Sat09/04/19 at 1002, | | | | | | | [...] | | | injection 1 dose, Starting Fri | | | 09/04/19 at 0953, Until Fri | | | 09/04/19 at 1002 | | + +---+ | | | + +---+ + +-------+ +---------+---+---+ | fentaNYL (SUBLIMAZE) injection | Given | 09/04/20 | 100 mcg | | | | 25-150 mcg 25-150 mcg, | | 19 10:58 | | | | | intravenous, INTRAPROCEDURE PRN, | | AM PST | | | | | Starting 09/04/19 at 0748, | | | | | | | Until 09/05/19 at 0621, | | | | | | | sedation/analgesia | | | | | | + +-------+ +---------+---+---+ +---+---+ | | | +---+---+ + +-------+ +-------+---+---+ | ketamine (KETALAR) injection | Given | 09/04/20 | 50 mg | | | | 20-200 mg 20-200 mg, | | 19 10:58 | | | | | intravenous, INTRAPROCEDURE PRN, | | AM PST | | | | | Starting 09/04/19 at 0748, | | | | | | | Until 09/05/19 at 0621, | | | | | | | sedation | | | | | | + +-------+ +-------+---+---+ +---+---+ | | | +---+---+ + +-------+ +------+---+---+ | midazolam (VERSED) injection | Given | 09/04/20 | 5 mg | | | | 1-10 mg 1-10 mg, intravenous, | | 19 10:58 | | | | | INTRAPROCEDURE PRN, Starting Fri | | AM PST | | | | | 09/04/19 at 0748, Until Sat | | | | | | | 09/05/19 at 0621, sedation | | | | | | + +-------+ +------+---+---+ + +---+ | | | + +---+ | NaCl 0.9 % (NS) solution 1 | | | dose, Starting 09/04/19 at | | | 0626, Until 09/04/19 at 1001 | | + +---+ | | | + +---+ + +-------+ +------+---+---+ | ondansetron (ZOFRAN) injection | Given | 09/04/20 | 8 mg | | | | 4-8 mg 4-8 mg, intravenous, | | 19 10:01 | | | | | NEEDED, Starting Sat09/04/19 at | | AM PST | | | | | 0748, Until 09/05/19 at 0621, | | | | | | | May repeat x1 after 15 minutes | | | | | | | for a maximum dose of 8mg | | | | | | + +-------+ +------+---+---+ + +---+ | | | + +---+ | ondansetron (ZOFRAN) injection | | | 1 dose, Starting Sat09/04/19 at | | | 0626, Until Sat09/04/19 at 1001 | | + +---+ | | | + +---+ + +---------+ +-------+-------+---+ | sodium chloride 0.9 % (NS) IV | New Bag | 09/04/20 | 300 | 300 | | | infusion 300 mL/hr, intravenous, | | 19 10:01 | mL/hr | mL/hr | | | CONTINUOUS, Starting 09/04/19 | | AM PST | | | | | at 0800, Until 09/05/19 at | | | | | | | 0621 | | | | | | + +---------+ +-------+-------+---+ +---+---+ | | | +---+---+ documented in this encounter
--- OUTSIDE RECORDS SUMMARY | ~2020-05-06 | XMS | Encounter Summary ---
Demographics + + + | Address | [address] | | | [place] [address] | + + + | Home Phone | | + + + | Preferred Language | Unknown | + + + | Marital Status | Single | + + + | Yarsanism Affiliation | NRP | + + + | Race | White | + + + | Ethnic Group | Not or | + + + Author + + + | Author | [facility] | + + + | Organization | [facility] | + + + | Address | Unknown | + + + | Phone | Unavailable | + + + Support + + + + + | Name | Relationship | Address | Phone | + + + + + | Neda Castañeda | ECON | [place] | | | | | [address] | | + + + + + Care Team Providers + +------+ + | Care English Drawer Name | Role | Phone | + +------+ + | Nathalie Castillo | PCP | | + +------+ + Encounter Details +--------+ + + + + | Date | Type | Department | Care Team | Description | +--------+ + + + + | 01/17/ | Results | [facility] | Babita Lombardo, | | | 2012 | Only | Department | [address] | | | | | | [place] | | | | | | [address] | | | | | | [phone] | | | | | | | [...] | NEREIDA MORILLO ONLY | Routin | 01/17/2013 | | Results for this | | | e | 9:50 PM | | procedure are in the | | | | PDT | | results section. | + +--------+ + + + documented in this encounter Results NEREIDA MORILLO ONLY (01/17/2013 9:50 PM PDT) + + + + + [...] + + + + | SPECIFIC | 1.011 | 1.005 - 1.030 | [facility] | [...] + + + | WHITE CELLS | 3-5 | 0 - 2 HPF | [facility] [...] + + + + | EPITHELIAL | NEG | RARE-MOD LPF | [facility] | | | CELLS | | | A MEDICAL | | | | | | CENTER | | + + + + + + | BACTERIA | TRACE | NEG HPF | [facility] | | | | | | A MEDICAL | | | | | | CENTER | | + + + + + + | OTHER | MUCUS PRESENT | | [facility] | | | | | | A MEDICAL | | | | | | CENTER | | + + + + + + | SOURCE | CLEAN CATCH | | [facility] | | | | | | A [...] [facility] | And | [place] | [phone] | | MEDICAL CENTER | Streets | [address] | | + + + + + documented in this encounter Visit Diagnoses Not on filedocumented in this encounter"
--- OUTSIDE RECORDS SUMMARY | ~2020-05-06 | XMS | Encounter Summary ---
Demographics + + + | Address | [address] | | | [place] [address] | + + + | Home Phone [...] [place] | | | | | [address] | | + + + + + Care Team Providers + +------+ + | Care Batch Records Clerk Name | Role | Phone | + +------+ + | Herbert Marie MD,MPH | PCP | Unavailable | + +------+ + Reason for Visit + + + | Reason | Comments | + + + | Groin pain | | + + + Encounter Details +--------+ + + + + | Date | Type | Department | Care Team | Description | +--------+ + + + + | 07/20/ | Emergency | Emergency | Karen Chow, | | | 2015 | | Department at [facility] | [address] | | | | | Hospital [address] | [place], [place] | | | | | [address] [place], | [address] | | | | | [place] [address] | [phone] | | | | | [phone] | | | | | | | [place], | | | | | | [address] | | | | | | [place], [place] | | | | | | [address] | | | | | | [phone] | | | | | | | [...] + + + | Blood Pressure | 121/92 | 07/20/2016 4:31 PM | | | | | PDT | | + + + + + | Pulse | 78 | 07/20/2016 4:31 PM | | | | | PDT | | + + + + + | Temperature | 36.7 C (98.1 F) | 07/20/2016 4:31 PM | | | | | PDT | | + + + + + | Respiratory Rate | 19 | 07/20/2016 4:31 PM | | | | | PDT | | + + + + + | Oxygen Saturation | 99% | 07/20/2016 4:31 PM | | | | | PDT | | + + + + + | Inhaled Oxygen | - | - | | | Concentration | | | | + + + + + | Weight | 90.7 kg (200 lb) | 07/20/2016 12:28 PM | | | | | PDT | | + + + + + | Height | - | - | | + + + + + | Body Mass Index | 31.32 | 05/30/2016 2:38 PM | | | | | PDT | | + + + + + documented in this encounter Discharge Instructions Instructions Beth Silva MD - 07/20/2016You may take ibuprofen at home since this is n't a true allergy. The ER will not refill or prescribe additional pain medication for this problem; you must see your regular doctor. Return to the ER for fevers, or severe vomiting. Epididymitis and Orchitis: Care Instructions Your Care Instructions Epididymitis is pain and swelling of the tube that is attached to each testicle. This tube is called the epididymis. Orchitis is pain and swelling of the testicle. Infection with bact eria often causes these conditions. Sexually transmitted infections (STIs) also can cause olimpia th conditions. This is often the case in men younger than 35. Other causes in boys and older men are infections from surgery or having a catheter that drains urine. The mumps virus als o can cause orchitis. Anti-inflammatory or pain medicines can help with the pain. Antibiotics are used if the pro blem is caused by bacteria. They are not used if a virus is the cause. Your testicle may sta y swollen for many days or even a few weeks. The doctor has checked you carefully, but problems can develop later. If you notice any pro blems or new symptoms, get medical treatment right away. Follow-up care is a avery part of your treatment and safety. Be sure to make and go to all ap pointments, and call your doctor if you are having problems. It's also a good idea to know y our test results and keep a list of the medicines you take. How can you care for yourself at home? If your doctor prescribed antibiotics, take them as directed. Do not stop taking them ju st because you feel better. You need to take the full course of antibiotics. Ask your doctor if you can take an ddqy-bct-qwcdekv pain medicine, such as acetaminophen (Tylenol), ibuprofen (Advil, Motrin), or naproxen (Aleve). Be safe with medicines. Read and follow all instructions on the label. Limit your activity to what is comfortable. Wear snug underwear or an athletic supporter. This can help reduce pain. Apply either cold or heat to the swollen area. Use the one that works best for your pain . Sitting in a warm bath for 15 minutes twice a day will help reduce the swelling more quick ly. If you have been told that an STI may have caused your condition, do not have sex until your doctor says it is safe. This will prevent spreading the infection. Tell your sex partne r or partners that they need to be checked. They may need treatment. When should you call for help? Call your doctor now or seek immediate medical care if: Your pain gets worse. You have a new or higher fever. You have new or more swelling of your testicle. You have new belly pain, or your pain gets worse. Watch closely for changes in your health, and be sure to contact your doctor if: You do not get better as expected. Where can you learn more? To learn more about "Epididymitis and Orchitis: Care Instructions", log into your Skwibl a ccount at [email or web address]. You can enter [email or web address] in the [email or web address]" search b ox. Not on Skwibl? Review the Neverfailt section of your After Visit Summary for directions on ho w to sign up. [id number] [employer]. Care instructions adapted under license by [facility]. This care instruction is for use with your licensed healthcar e professional. If you have questions about a medical condition or this instruction, always ask your healthcare professional. [employer] disclaims any warranty or liabili ty for your use of this information. Content Version: 11.0.271664; Current as of: August 19, 2015 documented in this encounter Medications at Time of Discharge + + + +---------+ + + | Medication | Sig | Dispensed | Refills | Start | End Date | | | | | | Date | | + + + +---------+ + + | levoFLOXacin 500 | Take 1 tablet by | 10 | 0 | 07/20/20 | | | mg oral tablet | mouth once daily for | tablet | | 16 | 6 | | | 10 days. | | | | | + + + +---------+ + + documented as of this encounter Plan of Treatment Not on filedocumented as of this encounter Procedures + +--------+ + + + | Procedure Name | Priori | Date/Time | Associated Diagnosis | Comments | | | ty | | | | + +--------+ + + + | CHLAM/GC APTIMA, | Urgent | 07/20/2016 | | Results for this | | RNA, TMA | | 4:30 PM | | procedure are in the | | | | PDT | | results section. | + +--------+ + + + | US SCROTUM & | Urgent | 07/20/2016 | | Results for this | | CONTENTS | | 2:32 PM | | procedure are in the | | | | PDT | | results section. | + +--------+ + + + | NEREIDA MORILLO/ | Urgent | 07/20/2016 | | Results for this | | REFLEX | | 1:35 PM | | procedure are in the | | | | PDT | | results section. | + +--------+ + + + documented in this encounter Results ANIAAM/GC GOVINDIMA, RNA, MARK (07/20/2016 4:30 PM PDT) + + + + + + | Component | Value | Ref Range | Performed | Pathologist | | | | | At | Signature | + + + + + + | CHLAMYDIA | NOT DETECTED | NOT DETECTED | [facility] | | [facility] | | | [facility] | | | | | | - [place] | | + + + + + + | GONOCOCCUS | NOT DETECTED | NOT DETECTED | [facility] | | [facility] | | | [facility] | | | | | | - [place] | | + + + + + + | COMMENTS | SEE NOTEComment: This | | [facility] | | | | test was performed using | | [facility] | | | | the APTIMA COMBO2 | | - [place] | | | | Assay([employer] | | | | | | The analytical | | | | | | performance | | | | | | characteristics of this | | | | | | assay, when used to test | | | | | | SurePath specimens | | | | | | havebeen determined by | | | | | | [facility]. | | | | + + + + + + + + | Specimen | + + | Urine - Urine | + + + + + + + | Performing | Address | City/State/Zipcode | Phone Number | | Organization | | | | + + + + + | [facility] | [address] | [place] [address] | | | - [place] | [address] | | | + + + + + US SCROTUM & CONTENTS (07/20/2016 2:32 PM PDT) + + | Specimen | + + | | + + + + + | Narrative | Performed At | + + + | [address] [place] [address] | [facility] | | [place] [address] | DEPARTMENT | | [phone] Name: CHUCK SANTOS Phys: | RADIOLOGY | | [place] : 1975 Sex: M | | | CSN: [id number] MR# [id number] Exam Date: | | | 07/20/2016 EXAM: SCROTAL ULTRASOUND CLINICAL HISTORY: | | | Left-sided scrotal pain since last night. COMPARISON: None | | | available. TECHNIQUE: Real-time sonographic images of the | | | testicles were obtained utilizing a 9.0 MHz transducer.Color Doppler | | | and spectral waveforms were used to evaluate blood flow to the | | | testicles and epididymes. FINDINGS: Right testicle: Measures | | | 3.1 cm x 2.4 cm x 4.2 cm. Normal arterial and venous blood flow. | | | No intratesticular mass. Normal echogenicity. Left testicle: | | | Measures 3.1 cm x 2.1 cm x 3.6 cm. Normal arterial and venous | | | blood flow. No intratesticular mass. Normal echogenicity. Right | | | epididymis: There is no increased vascularity. Apart from a small | | | septated epididymal head cyst versus spermatocele, measuring 5 mm x | | | 3 mm x 3 mm, normal. Left epididymis: Normal echogenicity and | | | blood flow in the majority of the epididymis. However, in the tail | | | of the epididymis, there is a solid hypoechoic mass like area which | | | measures approximately 1.3 cm x 1.0 cm x 1.2 cm with increased | | | vascularity, compared to the remainder of the epididymis, likely | | | secondary to focal epididymitis. Other findings: Small bilateral | | | simple hydroceles are present. There is a tiny left varicocele. | | | IMPRESSION: 1. Solid hypoechoic masslike area in the left epididymal | | | tail with increased vascularity, likely secondary to focal | | | epididymitis. Close clinical and sonographic follow-up is | | | recommended. 2. No testicular torsion. Incidental septated | | | spermatocele in the right epididymal head and small bilateral simple | | | hydroceles. REPORT SIGNED IN OTHER VENDOR SYSTEM 07/20/2016 | | | Reported by: WADE MARTÍNEZ MD Electronically signed by: | | | WADE MARTÍNEZ MD Transcribed Date/Time: 07/20/2016 16:06 | | | Bi Consultant: FLUENCY | | + + + + + | Procedure Note | + + | Interface, Radiology Results - 07/20/2016 4:11 PM PDT [address] | | [address] [place] [address] | | Name: MADDYCHUCK Phys: [place] : 1975 Sex: M | | CSN: [id number] MR# [id number] Exam Date: 07/20/2016 EXAM:SCROTAL ULTRASOUND | | CLINICAL HISTORY:Left-sided scrotal pain since last night. COMPARISON:None available. | | TECHNIQUE:Real-time sonographic images of the testicles were obtained utilizinga 9.0 MHz | | transducer.Color Doppler and spectral waveforms were usedto evaluate blood flow to the | | testicles and epididymes. FINDINGS:Right testicle: Measures 3.1 cm x 2.4 cm x 4.2 cm. | | Normal arterialand venous blood flow. No intratesticular mass. Normal echogenicity. | | Left testicle: Measures 3.1 cm x 2.1 cm x 3.6 cm. Normal arterialand venous blood | | flow. No intratesticular mass. Normal echogenicity. Right epididymis: There is no | | increased vascularity. Apart from asmall septated epididymal head cyst versus | | spermatocele, measuring 5mm x 3 mm x 3 mm, normal. Left epididymis: Normal echogenicity | | and blood flow in the majorityof the epididymis. However, in the tail of the | | epididymis, there cheri solid hypoechoic mass like area which measures approximately 1.3 | | cmx 1.0 cm x 1.2 cm with increased vascularity, compared to theremainder of the | | epididymis, likely secondary to focal epididymitis. Other findings: Small bilateral | | simple hydroceles are present.There is a tiny left varicocele. IMPRESSION:1. Solid | | hypoechoic masslike area in the left epididymal tail withincreased vascularity, likely | | secondary to focal epididymitis. Closeclinical and sonographic follow-up is | | recommended.2. No testicular torsion. Incidental septated spermatocele in theright | | epididymal head and small bilateral simple hydroceles. REPORT SIGNED IN OTHER VENDOR | | SYSTEM 07/20/2016 Reported by: WADE MARTÍNEZ MD Electronically signed by: WADE | | MD TANYA Transcribed Date/Time: 07/20/2016 16:06Transcriptionist: FLUENCY | |to evaluate blood flow to the testicles and epididymes. | | | |FINDINGS: | |Right testicle: Measures 3.1 cm x 2.4 cm x 4.2 cm. Normal arterial | |and venous blood flow. No intratesticular mass. Normal | |echogenicity. | | | |Left testicle: Measures 3.1 cm x 2.1 cm x 3.6 cm. Normal arterial | |and venous blood flow. No intratesticular mass. Normal echogenicity. | | | |Right epididymis: There is no increased vascularity. Apart from a | |small septated epididymal head cyst versus spermatocele, measuring 5 | |mm x 3 mm x 3 mm, normal. | | | |Left epididymis: Normal echogenicity and blood flow in the majority | |of the epididymis. However, in the tail of the epididymis, there is | |a solid hypoechoic mass like area which measures approximately 1.3 cm | |x 1.0 cm x 1.2 cm with increased vascularity, compared to the | |remainder of the epididymis, likely secondary to focal epididymitis. | | | |Other findings: Small bilateral simple hydroceles are present. | |There is a tiny left varicocele. | | | |IMPRESSION: | |1. Solid hypoechoic masslike area in the left epididymal tail with | |increased vascularity, likely secondary to focal epididymitis. Close | |clinical and sonographic follow-up is recommended. | |2. No testicular torsion. Incidental septated spermatocele in the | |right epididymal head and small bilateral simple hydroceles. | | | | | | REPORT SIGNED IN OTHER VENDOR SYSTEM 07/20/2016 | |Reported by: WADE MARTÍNEZ MD | | | |Electronically signed by: WADE MARTÍNEZ MD | | | |Transcribed Date/Time: 07/20/2016 16:06 | |Bi Consultant: VAL | | | | | | | + + + +---------+ + + | Performing | Address | City/State[facility] | Phone Number | | Organization | | | | + +---------+ + + | [facility] DEPARTMENT OF | | | | | RADIOLOGY | | | | + +---------+ + + NEREIDA MORILLO (07/20/2016 1:35 PM PDT) + + + + + + | Component | Value | Ref Range | Performed | Pathologist | | | | | At | Signature | + + + + + + | COLOR(UR) | Light Yellow | Colorless, | [facility] | | | | | Straw, Yellow, | A MEDICAL | | | | | Light Yellow, | CENTER | | | | | Dark Yellow, | | | | | | Light Red | | | + + + + + + | APPEARANCE | Clear | Clear | [facility] | | | | | | A MEDICAL | | | | | | CENTER | | + + + + + + | PH (URINE) | 7.5 | 5.0 - 8.5 | [facility] | [...] + + + + | SPECIFIC | 1.012 | 1.005 - 1.030 | [facility] | [...] + + + + | SOURCE | | | [facility] | | | (URINALYSIS | | | A MEDICAL | | | ) | | | CENTER | | + + + + + + + + | Specimen | + + | Urine - Urine | | (substance) | + + + + + + + | Performing | Address | City/State/Zipcode | Phone Number | | Organization | | | | + + + + + | [facility] | [address] | [place] | [phone] | | MEDICAL CENTER | [facility] | [address] | | + + + + + documented in this encounter Visit Diagnoses + + | Diagnosis | + + | Epididymitis, left - Primary Orchitis and epididymitis, unspecified | + + documented in this encounter Administered Medications + +--------+ +--------+------+ + | Medication Order | MAR | Action | Dose | Rate | Site | | | Action | Date | | | | + +--------+ +--------+------+ + | cefTRIAXone (ROCEPHIN) | Given | 07/20/20 | 250 mg | | Right | | injection 250 mg 250 mg, | | 16 4:35 | | | Ventrogl | | intramuscular, ONCE, 1 dose, Fri | | PM PDT | | | uteal | | 07/20/16 at 1700 | | | | | | + +--------+ +--------+------+ + +---+---+ | | | +---+---+ + +-------+ +---------+---+---+ | HYDROcodone-acetaminophen | Given | 07/20/20 | 2 | | | | (NORCO) 5-325 mg tablet 2 tablet | | 16 2:10 | tablets | | | | 2 tablet, oral, ONCE, 1 dose, | | PM PDT | | | | | 07/20/16 at 1445 | | | | | | + +-------+ +---------+---+---+ + +---+ | | | + +---+ | lidocaine PF (XYLOCAINE MPF) | | | injection 1 dose, Starting Fri | | | 07/20/16 at 1626, Until Fri | | | 07/20/16 at 1635 | | + +---+ | | | + +---+ + +-------+ +--------+---+ + | lidocaine PF (XYLOCAINE MPF) | Given | 07/20/20 | 3.6 mL | | Right | | injection infiltration, ONCE, 1 | | 16 4:35 | | | Ventrogl | | dose, 07/20/16 at 1715 | | PM PDT | | | uteal | + +-------+ +--------+---+ + +---+---+ | | | +---+---+ + +-------+ +------+---+---+ | ondansetron ODT (ZOFRAN ODT) | Given | 07/20/20 | 4 mg | | | | tablet 4 mg 4 mg, oral, ONCE, 1 | | 16 1:37 | | | | | dose, 07/20/16 at 1345 | | PM PDT | | | | + +-------+ +------+---+---+ + +---+ | | | + +---+ | ondansetron ODT (ZOFRAN ODT) | | | tablet 1 dose, Starting Fri | | | 07/20/16 at 1336, Until Fri | | | 07/20/16 at 1337 | | + +---+ | | | + +---+ documented in this encounter
--- OUTSIDE RECORDS SUMMARY | ~2020-05-06 | XMS | Encounter Summary ---
Demographics + + + | Address | [address] | | | [place] [address] | + + + | Home Phone [...] Author + + + | Author | [facility] | + + + | Organization | [facility] | + + + | Address | Unknown | + + + | Phone | Unavailable | + + + Support + + + + + | Name | Relationship | Address | Phone | + + + + + | Neda Castañeda | ECON | [place] | | | | | [address] | | + + + + + Care Team Providers + +------+ + | Care Estimator Name | Role | Phone | + +------+ + | Miguel A Peraza PA-C | PCP | | + +------+ + Reason for Visit + + + | Reason | Comments | + + + | Er Visit Follow-up | | + + + Encounter Details +--------+ + + + + | Date | Type | Department | Care Team | Description | +--------+ + + + + | 11/20/ | Telephone | [facility] | Herbert Marie, | Er Visit Follow-up | | 2017 | | Medicine [address] | [facility] | | | | | [address] [place], | | | | | | [place] [address] | | | | | | [phone] | | | +--------+ + + + [...]
--- OUTSIDE RECORDS SUMMARY | ~2020-05-06 | XMS | Encounter Summary ---
Demographics + + + | Address | [address] | | | [place] [address] | + + + | Home Phone | | + + + | Preferred Language | Unknown | + + + | Marital Status | Single | + + + | Temple Affiliation | NRP | + + + [...] [place] | | | | | [address] | | + + + + + Care Team Providers + +------+ + | Care Machinist/Machine Builder Name | Role | Phone | + [...] mg) | | | | [address] [place], | | | | | | [place] [address] | | | | | | [phone] | | | +--------+--------+ + + + [...]
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
--- OUTSIDE RECORDS SUMMARY | ~2020-05-06 | XMS | Encounter Summary ---
Demographics + + + | Address | [address] | | | [place] [address] | + + + | Home Phone [...] Author + + + | Author | [facility] | + + + | Organization | [facility] | + + + | Address | Unknown | + + + | Phone | Unavailable | + + + Support + + + + + | Name | Relationship | Address | Phone | + + + + + | Neda Castañeda | ECON | [place] | | | | | [address] | | + + + + + Care Team Providers + +------+ + | Care Fingerer Name | Role | Phone | + +------+ + | Herbert Marie MD,MPH | PCP | Unavailable | + +------+ + Reason for Visit + + + | Reason | Comments | + + + | Medication | [facility] pharmacy conflict | + + + Encounter Details +--------+ + + + + | Date | Type | Department | Care Team | Description | +--------+ + + + + | 01/24/ | Telephone | [facility] | Herbert Marie, | Medication ([facility] | | 2017 | | Medicine [address] | MDMPH | pharmacy conflict) | | | | [address] [place], | | | | | | [place] [address] | | | | | | [phone] | | | +--------+ + + + [...]
--- OUTSIDE RECORDS SUMMARY | ~2020-05-06 | XMS | Encounter Summary ---
Demographics + + + | Address | [address]ERY | | | [place] [address] | + + + | Home Phone [...] + + + | Author | [facility] | + + + | Organization | [facility] | + + + | Address | Unknown | + + + | Phone | Unavailable | + + + Support + + + + + | Name | Relationship | Address | Phone | + + + + + | Neda Castañeda | ECON | [place] | | | | | [address] | | + + + + + Care Team Providers + +------+ + | Care Pitching Coach Name | Role | Phone | + +------+ + | Violeta Parker DO | PCP | | + +------+ + Reason for Visit + + + | Reason | Comments | + + + | Consultation | hemorrhoids | + + + Consultation (Routine) +--------+--------+ + + + + | Status | Reason | Specialty | Diagnoses / | Referred By | Referred To | | | | | Procedures | Contact | Contact | +--------+--------+ + + + + | Closed | | Surgery | Diagnoses | Harjeet Parker | | | | | Thrombosed | DO Violeta | Surg Mob | | | | | external | [address] | | | | | hemorrhoids | [address] | [address] | | | | | | [place], | [place] | | | | | | [place] [address] | [address] | | | | | | Phone: | Phone: | | | | | | [phone] | [phone] | | | | | | Fax: | Fax: | | | | | | [phone] | [phone] | +--------+--------+ + + + + Encounter Details +--------+---------+ + + + | Date | Type | Department | Care Team | Description | +--------+---------+ + + + | 09/09/ | Office | [facility] | Humberto | Thrombod | | 2018 | Visit | Surgery Clinic [address] | Angel Woodall MD [address] | hemorrhoids (Primary | | | | [address] | Dx) | | | | [place], [place] | [place], [place] | | | | | [address] | [address] | | | | | [phone] | [phone] | | | | | | | [...] + + + | Blood Pressure | 130/85 | 09/09/2018 2:52 PM | | | | | PST | | + + + + + | Pulse | 83 | 09/09/2018 2:52 PM | | | | | PST [...] Weight | 84.4 kg (186 lb) | 09/09/2018 2:52 PM | | | | | PST | | + + + + + | Height | 162.6 cm (5' 4") | 09/09/2018 2:52 PM | | | | | PST | | + + + + + | Body Mass Index | 31.93 | 09/09/2018 2:52 PM | | | | | PST | | + + + + + documented in this encounter Progress Notes Angel Paul MD - 09/09/2018 3:15 PM PSTFormatting of this note might be differe nt from the original. Chief Complaint: Chief Complaint Patient presents with Consultation hemorrhoids History of Present Illness 43-year-old man status post I and D of thrombosed external hemorrhoids over the weekend in the ED. Since then his pressure and relieve has improved. this was started by a bout of d iarrhea any risks on the toilet for extended periods of time. He did one sitz bath this mor brian. Review of Systems Constitutional: Negative for chills, [...] other systems reviewed and are negative. A Staff Forester was offered to the patient and declined. Vitals BP 130/85 | Pulse 83 | Ht 1.626 m (5' 4") | Wt 84.4 kg (186 lb) | BMI 31.93 kg/(m^2) Estimated body mass index is 31.93 kg/m as calculated from the following: Height as of this encounter: 1.626 m (5' 4"). Weight as of this encounter: 84.4 kg (186 lb). Physical Examination Gen- MERE RUIZ- [place], [place] Resp- Unlabored Rectal- no masses, resolving thrombosed external hemorrhoid, no sign of acute clot Assessment/Plan Mendez was seen today for consultation. Diagnoses and all orders for this visit: Thrombosed hemorrhoids 43-year-old man with resolving thrombosed external hemorrhoid. He should continue Sitz bat hs and start a fiber supplement. We will follow up with him in about 1 week to albert matias. No follow-up information. documented in t his encounter Plan of Treatment Not on filedocumented as of this encounter Visit Diagnoses + + | Diagnosis | + + | Thrombosed hemorrhoids - Primary Unspecified thrombosed hemorrhoids | + + documented in this encounter
--- OUTSIDE RECORDS SUMMARY | ~2020-05-06 | XMS | Encounter Summary ---
Demographics + + + | Address | [address] | | | [place] [address] | + + + | Home Phone [...] Author + + + | Author | [facility] | + + + | Organization | [facility] | + + + | Address | Unknown | + + + | Phone | Unavailable | + + + Support + + + + + | Name | Relationship | Address | Phone | + + + + + | Neda Santos | ECON | [place] | | | | | [address] | | + + + + + Care Team Providers + +------+ + | Care Painter And Decorator Apprentice Name | Role | Phone | + +------+ + | Herbert Marie MD,MPH | PCP | Unavailable | + +------+ + Encounter Details +--------+ + + + + | Date | Type | Department | Care Team | Description | +--------+ + + + + | 04/19/ | Hospital | Diagnostic Imaging | | | | 2015 | Encounter | at [facility] | | | | | | [address] | | | | | | [place] | | | | | | [address] | | | | | | [phone] | | | +--------+ + + + [...] + | X-RAY CHEST 2 VIEW | Routin | 04/19/2016 | Cancer of prostate | Results for this | | | e | 1:45 PM | w/recur risk not | procedure are in the | | | | PDT | determined/neith | results section. | | | | | low, med nor high | | | | | | (HCC) | | + +--------+ + + + documented in this encounter Results X-RAY CHEST 2 VIEW (04/19/2016 1:45 PM PDT) + + | Specimen | + + | | + + + + + | Narrative | Performed At | + + + | [address] | [facility] | | [place] [address] | DEPARTMENT | | [phone] Name: CHUCK SANTOS Phys: | RADIOLOGY | | ANNE URRUTIA Magalie : 1975 Sex: M CSN: | | | [id number] MR# [id number] Exam Date: 04/19/2016 | | | EXAM: [...] SYSTEM 04/19/2016 | | | Reported by: WADE MARTÍNEZ MD Electronically signed by: WADE | | | MD TANYA Transcribed Date/Time: 04/19/2016 14:08 | | | High Rigger: FLUENCY | | + + + + + | Procedure Note | + + | Interface, Radiology Results - 04/19/2016 2:12 PM PDT [address] | | [place], [place] [address] | | Name: CHUCK SANTOS Phys: ANNE URRUTIA : 1975 Sex: M CSN: | | [id number] MR# [id number] Exam Date: 04/19/2016 EXAM:TWO VIEW CHEST XRAY [...] | | |Transcribed Date/Time: 04/19/2016 14:08 | |High Rigger: FLUENCY | | | | | | [...]
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
--- OUTSIDE RECORDS SUMMARY | ~2020-05-06 | XMS | Encounter Summary ---
Demographics + + + | Address | [address] | | | [place] [address] | + + + | Home Phone [...] Author + + + | Author | [facility] | + + + | Organization | [facility] | + + + | Address | Unknown | + + + | Phone | Unavailable | + + + Support + + + + + | Name | Relationship | Address | Phone | + + + + + | Neda Castañeda | ECON | [place] | | | | | [address] | | + + + + + Care Team Providers + +------+ + | Care Lime Burner Name | Role | Phone | + +------+ + PCP | Unavailable | + +------+ + Encounter Details +--------+ + + + + | Date | Type | Department | Care Team | Description | +--------+ + + + + | 03/24/ | Document-Sc | UNKNOWN DEPARTMENT | Unknown . | | | 2011 | anned | [address] | | | | | | [address] | | | | | | [place], [place] | | | | | | [address] | | | +--------+ + + + [...] | + +--------+ + + + | RADIOLOGY | | 03/24/2012 | | Results for this | | | | 12:00 AM | | procedure are in the | | | | PDT | | results section. | + +--------+ + + + documented in this encounter Results RADIOLOGY (03/24/2012 12:00 AM PDT) + + + | Narrative | Performed At | + + + | | | + + + + + | Transcriptions | + + | Zulma Mata - 03/24/2012 8:24 PM PDT | + + documented in this encounter Visit Diagnoses Not on filedocumented in this encounter"
--- OUTSIDE RECORDS SUMMARY | ~2020-05-06 | XMS | Encounter Summary ---
Demographics + + + | Address | [address] | | | [place] [address] | + + + | Home Phone | | + + + | Preferred Language | Unknown | + + + | Marital Status | Single | + + + | [facility] Affiliation | NRP | + + + [...] [place] | | | | | [address] | | + + + + + Care Team Providers + +------+ + | Care Septic Tank Cleaner Name | Role | Phone | + [...] + + | 02/28/ | Telephone | [facility] | Anne Delvalle MD | | | 2016 | | Surgery Clinic [address] | | | | | [address] | [facility] [address] | | | | | [place] | [place] | | | | | [address] | [place] [address] | | | | | [phone] | [phone] | | | | | | | [...] /Chaka | | | | | | [id number] | | | | | | [place] | | | | | | [address] | | | | | | [place] | | | | | | [address] | | | | + + + [...] + + | [facility] | [address] [facility] | [place] [address] | | | - [place] | [address] | | | + + + + + X-RAY CHEST 2 VIEW (04/19/2016 1:45 PM PDT) + + | Specimen | + + | | + + + + + | Narrative | Performed At | + + + | [address] [place] [address] | [facility] | | [place] [address] | DEPARTMENT | | [phone] Name: CHUCK SANTOS Phys: | RADIOLOGY | | ANNE DELVALLE : 1975 Sex: Magalie CSN: | | | [id number] MR# [id number] Exam Date: 04/19/2016 | | | EXAM: [...] Transcribed Date/Time: 04/19/2016 14:08 | | | Medical Equipment Sales: FLUENCY | | + + + + + | Procedure Note | + + | Interface, Radiology Results - 04/19/2016 2:12 PM PDT [address] | | [place] [address] | | Name: MADDYCHUCK Phys: ANNE DELVALLE : 1975 Sex: M CSN: | | [id number] MR# [id number] Exam Date: 04/19/2016 EXAM:TWO VIEW CHEST XRAY [...] | | |Transcribed Date/Time: 04/19/2016 14:08 | |Medical Equipment Sales: FLUENCY | | | | | | [...]
--- OUTSIDE RECORDS SUMMARY | ~2020-05-06 | XMS | Encounter Summary ---
Demographics + + + | Address | [address]ERY | | | [place] [address] | + + + | Home Phone [...] Author + + + | Author | [facility] | + + + | Organization | [facility] | + + + | Address | Unknown | + + + | Phone | Unavailable | + + + Support + + + + + | Name | Relationship | Address | Phone | + + + + + | Neda Castañeda | ECON | [place] | | | | | [address] | | + + + + + Care Team Providers + +------+ + | Care Retail Pricing Coordinator Name | Role | Phone | + +------+ + | Nathalie Castillo | PCP | | + +------+ + Encounter Details +--------+ + + + + | Date | Type | Department | Care Team | Description | +--------+ + + + + | 03/01/ | Results | NON-[facility] | Kari Amin MD | | | 2012 | Only | Department | [facility] | | | | | | Health Dept [address] | | | | | | [address] [facility], | | | | | | [place] [address] | | | | | | [phone] | | | | | | | [...] + + + | HAND 3 VIEW [id number] | Routin | 03/01/2013 | | Results for this | | | e | 3:37 PM | | procedure are in the | | | | PDT | | results section. | + +--------+ + + + documented in this encounter Results HAND 3 VIEW [id number] (03/01/2013 3:37 PM PDT) + + | [...]
--- OUTSIDE RECORDS SUMMARY | ~2020-05-06 | XMS | Encounter Summary ---
Demographics + + + | Address | [address] | | | [place] [address] | + + + | Home Phone [...] + + + | Author | [facility] | + + + | Organization | [facility] | + + + | Address | Unknown | + + + | Phone | Unavailable | + + + Support + + + + + | Name | Relationship | Address | Phone | + + + + + | Neda Castañeda | ECON | [place] | | | | | [address] | | + + + + + Care Team Providers + +------+ + | Care Maintenance Instructor Name | Role | Phone | [...] | Hypocalcemia; Mixed | | | | [address] | | hyperlipidemia; | | | | [phone] | | Recurrent kidney | | | [...] LDL cholesterol. Cardiac Risk Ratio Interpretation: | [facility] | | Interpretation Cardiac Risk Ratio Below Average | | | Risk 0.0 - 3.4 Above Average Risk | | | 3.5 - 4.9 | | + + + + + + + + | Performing | Address | City/State/Zipcode | Phone Number | | Organization | | | | + + + + + | [facility] | [address] | [place], [place] | [phone] | | [facility] | [address] | [address] | | + + + + + COMPLETE METABOLIC SET (NA,K,CL,CO2,BUN,CREAT,GLUC,CA,AST,ALT,BILI TOTAL,ALK PHOS,ALB,PROT TOTAL) (03/13/2017 9:32 AM PDT) + +-------+ + + + | Component | Value | Ref Range | Performed | Pathologist | | | | | At | Signature | + +-------+ + + + | GLUCOSE, | 98 | 70 - 105 mg/dL | [facility] | | | PLASMA | | | A MEDICAL | | | (LAB) | | | CENTER | | + +-------+ + + + | BUN, PLASMA | 13 | 6 - 26 mg/dL | [facility] | | | (LAB) | | [...] | | A MEDICAL | | | [facility] | | | CENTER | | + [...] Kidney Disease Education Program. Estimated GFR | [facility] | | Interpretive Information: <60 mL/min/1.73 [...] + + + + | [facility] | [address] | [place], [place] | [phone] | | [facility] | Street | [address] | | + + + + + HEMOGLOBIN A1C, BLOOD (03/13/2017 9:32 AM PDT) + +-------+ + + + | Component | Value | Ref Range | Performed | Pathologist | | | | | At | Signature | + +-------+ + + + | HEMOGLOBIN | 5.7 | % | [facility] | | | A1C | | | A MEDICAL | | | | | | CENTER | | + +-------+ + + + | ESTIMATED | 117 | mg/dL | [facility] | | | AVERAGE | | [...] per DCCT & ADA: | [facility] | | Normal Range: <6% [facility] | | Good Control: <7% | | | Additional action suggested: >8% Non-Diabetic | | | Ranges: 4-6% Utility Maintenance Worker's Glycohemoglobin | | | Diabetic Ranges: Normal Range: | | | 4.0-6.0% Good Control: | | | 6.0-8.0% Poor Control: | | | >8.0% | | + + + + + + + + | Performing | Address | City/State/Zipcode | Phone Number | | Organization | | | | + + + + + | [facility] | And | [place], [place] | [phone] | | [facility] | [address] | [address] | | + + + + + [...] [facility] | [address] | [place], [place] | | | FAMILY MEDICINE | | [address] | | + + + + + [...]
--- OUTSIDE RECORDS SUMMARY | ~2020-05-06 | XMS | Clinical Summary ---
Demographics + + + | Address | [address] | | | [place] [address] | + + + | Home Phone [...] Author + + + | Author | [facility] | + + + | Organization | [facility] | + + + | Address | Unknown | + + + | Phone | Unavailable | + + + Support + + + + + | Name | Relationship | Address | Phone | + + + + + | Neda Castañeda | ECON | [place], [place] | | | | | [address] | | + + + + + Care Team Providers + +------+ + | Care Corporate Executive Chef Name | Role | Phone | + +------+ + | Violeta Parker DO | PCP | | + +------+ + Source Comments KEVIN is fully live on both [facility] Ambulatory and [facility] InPatient.[facility] Allergies + + + + + + | Active Allergy | Reactions | Severity | Noted | Comments | | | | | Date | | + + + + + + | Bromelains | Throat Swelling / | | 05/31/20 | | | | Closing | | 15 | | + + + + + + | Ibuprofen | Pruritus | | 05/31/20 | | | | | | 15 | | + + + + + + | Naproxen | Bleeding | | 05/31/20 | Makes kidneys | | | | | 15 | bleed | + + + + + + | Penicillins | Throat Swelling / | | 05/31/20 | | | | Closing | | 15 | | + + + + + + | Pineapple | Anaphylaxis | High | 04/19/20 | | | | | | 16 | | + + + + + + Medications + + + +---------+------+------+-------+ | Medication | Sig | Dispensed | Refills | Star | End | Statu | | | | | | t | Date | s | | | | | | Date | | | + + + +---------+------+------+-------+ | gabapentin 300 mg | Take 2 capsules by | 540 | 1 | 03/2 | | Activ | | oral | mouth three times | capsule | | 11/19 | | e | | capsuleIndications: | daily. | | | 18 | | | | Left thigh pain | | | | | | | + + + +---------+------+------+-------+ | atorvastatin 40 mg | Take 1 tablet by | 90 | 1 | 02/28 | | Activ | | oral | mouth once daily. | tablet | | 06/19 | | e | | tabletIndications: | Indications: | | | 18 | | | | hypercholesterolemia | hypercholesterolemia | | | | | | + + + +---------+------+------+-------+ | tiZANidine 4 mg | Take 1 tablet by | 60 | 2 | 05/31 | | Activ | | oral tablet | mouth every six | tablet | | 8/20 | | e | | | hours as needed. | | | 18 | | | | | Max: 36 mg / day. | | | | | | + + + +---------+------+------+-------+ | omeprazole 40 mg | Take 40 mg by mouth | | 0 | | | Activ | | oral capsule,delayed | once daily. | | | | | e | | release(DR/EC) | | | | | | | + + + +---------+------+------+-------+ | promethazine 25 mg | | | 0 | 06/1 | | Activ | | oral tablet | | | | 1/20 | | e | | | | | | 19 | | | + + + +---------+------+------+-------+ | oxymetazoline 0.05 | Instill 2 sprays | 15 mL | 0 | 07/1 | | Activ | | % nasal | into each nostril | | | 6/20 | | e | | spray,non-aerosol | two times daily. Use | | | 19 | | | | | for only 3 days. | | | | | | + + + +---------+------+------+-------+ | sodium chloride | Instill 2 sprays | 30 mL | 0 | 07/1 | | Activ | | 0.65 % nasal | into each nostril as | | | 6/20 | | e | | aerosol,sprayIndicat | needed. | | | 19 | | | | ions: nasal | Indications: stuffy | | | | | | | congestion | nose | | | | | | + + + +---------+------+------+-------+ | ondansetron ODT 4 | Dissolve 1 tablet on | 6 | 0 | 02/0 | | Activ | | mg oral | tongue and swallow | tablet | | /20 | | e | | tablet,disintegratin | every twelve hours | | | 20 | | | | g | as needed. | | | | | | + + + +---------+------+------+-------+ Active Problems + + + | Problem | Noted Date | + + + | Gastroesophageal reflux disease | 08/06/2019 | + + + | History of adenomatous polyp of colon | 10/03/2017 | + + + | Carpal tunnel syndrome of left wrist | 09/12/2016 | + + + | Family history of pancreatic cancer | 06/21/2016 | + + + + + | Overview: brother and sister - periodic CA19-9, CA 15-3, UA | | and a chest xray | + + + + + | Family history of colon cancer | 06/21/2016 | + + + + + | Overview: father | + + + + + | BMI 31.0-31.9,adult | 05/30/2016 | + + + + + | Overview: Goal 180-185 | + + + + + | Mixed hyperlipidemia | 05/30/2016 | + + + + + | Overview: The 10-year ASCVD risk score (Eliud BERNSTEIN Jr. et al., | | 2012) is: 1.9%LDL > 190 - notified of statin recommendation | + + + + + | Prediabetes | 05/30/2016 | + + + | Recurrent kidney stones | 05/26/2016 | + + + | Left-sided low back pain with left-sided sciatica | 04/19/2016 | + + + + + | Overview: Lumbar Spine MRI 03/15/18:There is no central or | | left foraminal stenosis. At L5-S1 there is a small central and | | right paracentral discprotrusion and T2 hyperintensity in the | | protruding annulus due tofissuring. Central canal and neural | | foramina are patent. IMPRESSION:Slight L4-5 disc bulge. Small | | central and right paracentral L5-S1disc protrusion.Recommend PT | | for strengthening. | |IMPRESSION: | |Slight L4-5 disc bulge. Small central and right paracentral L5-S1 | |disc protrusion. | | | |Recommend PT for strengthening. | + + + + + | Left thigh pain | 04/19/2016 | + + + | Cervical pain | 09/01/2013 | + + + Resolved Problems + + + + | Problem | Noted | Resolved | | | Date | Date | + + + + | Hypercalcemia | 03/08/20 | | | | 17 | 7 | + + + + | Vomiting and diarrhea | 03/08/20 | | | | 17 | 7 | + + + + | Need for varicella vaccine | 06/24/20 | 12/14/201 | | | 16 | 6 | + + + + + + | Overview: Formatting of this note might be different from the | | original. - no history of chickenpox - will need Varivax | | k4AYSOZOCYN ZOSTER IGG index < [place] = 0.90 (A) | | | | | + + + + + + | Elevated ALT measurement | 06/21/20 | | | | 16 | 7 | + + + + | Elevated BP | 05/30/20 | | | | 16 | 6 | + + + + | Epigastric pain | 05/30/20 | | | | 16 | 6 | + + + + Immunizations + + + + | Name | Administration Dates | Next Due | + + + + | Influenza, | 09/12/2017, 06/21/2016 | | | injectable, | | | | quadrivalent, | | | | preservative free | | | | (IIV4) | | | + + + + | Influenza, seasonal, | 10/11/2014 | | | injectable, | | | | preservative free | | | | (IIV3) | | | + + + + | Td (adult), 2 Lf | 09/30/2010 | | | tetanus toxoid, | | | | preservative free, | | | | adsorbed | | | + + + + | Tdap | 12/20/2017 | | + + + + | Varicella | 08/02/2016, 07/05/2016 | | + + + + Family History + + +------+ + | Medical History | Relation | Name | Comments | + + +------+ + | GI | Brother | | GERD | + + +------+ + | Cancer | Brother | | Pancreatic | + + +------+ + | Cancer | Father | | | + + +------+ + | Colon Cancer | Father | | | + + +------+ + | Other Neurological | Father | | Alzheimer's Disease | + + +------+ + | Cancer | Mother | | Bladder | + + +------+ + | Obesity | Mother | | | + + +------+ + | GI | Sister | | GERD | + + +------+ + | Cancer | Sister | | Pancreatic | + + +------+ + + +------+ + + | Relation | Name | Status | Comments | + +------+ + + | Brother | | | | + +------+ + + | Brother | | | | + +------+ + + | Father | | | | + +------+ + + | Mother | | Alive | | + +------+ + + | Sister | | | Cancer, pancreas | + +------+ + + | Sister | | | | + +------+ + + | Sister | | | | + +------+ + + Social History + +-------+ +--------+ [...] recent travel history available. | + + Last Filed Vital Signs + + + + + | Vital Sign | Reading | Time Taken | Comments | + + + + + | Blood Pressure | 117/84 | 10/31/2019 3:15 PM | | | | | PST | | + + + + + | Pulse | 108 | 10/31/2019 3:15 PM | | | | | PST | | + + + + + | Temperature | 37.1 C (98.8 F) | 10/31/2019 3:15 PM | | | | | PST | | + + + + + | Respiratory Rate | 16 | 10/31/2019 3:15 PM | | | | | PST | | + + + + + | Oxygen Saturation | 98% | 10/31/2019 3:15 PM | | | | | PST [...] | | + + + + + Plan of Treatment + + + + + | Health Maintenance | Due Date | Last Done | Comments | + + + + + | DEPRESSION | | 09/12/2017 | | | ASSESSMENT (PHQ-9) | 8 | | | + + + + + | Substance abuse | | 09/12/2017 | | | screening | 8 | | | + + + + + | Cholesterol | | 08/14/2019, 03/12/2018, | | | screening | 0 | 03/13/2017, Additional history | | | | | exists | | + + + + + | COLON CANCER | | 09/04/2019 | | | SCREENING: | 2 | | | | COLONOSCOPY | | | | + + + + + | Influenza (Flu) | Completed | 08/03/2019, 08/01/2018, | | | vaccination | | 09/12/2017, Additional history | | | | | exists | | + + + + + | Pneumococcal | Aged Out | | No longer eligible | | vaccination | | | based on patient's | | | | | age to complete this | | | | | topic | + + + + + Results Not on filefrom Last 3 Months Insurance + +--------+ +--------+ + +--------+ | Payer | Benefi | Subscriber | Effect | Phone | Address | Type | | | t Plan | ID | juliette | | | | | | / | | Dates | | | | | | Group | | | | | | + +--------+ +--------+ + +--------+ | MEDICARE | MEDICA | xxxxxxxxxxx | | [id number] | [address] | [address] | | | RE A & | | [phone] | | | [address] | | esent | | [place] | | | | | | | | [address] | | + +--------+ +--------+ + +--------+ | POKER DEALER MEDICAID | POKER DEALER | xxxxxxxxxxx | 09/30/19 | | | Medica | | | PACIFI | | 19-Pre | | | id | | | CSOURC | | sent | | | | | | E | | | | | | + +--------+ +--------+ + +--------+ | MEDICARE | MEDICA | xxxxxxxxxxx | | [id number] | [address] | [address] | | | RE A & | | [phone] | [address] | | | B | | esent | | [place], [place] | | | | | | | | [address] | | + +--------+ +--------+ + +--------+ | POKER DEALER MEDICAID | POKER DEALER | xxxxxxxx | 09/30/19 | | | Medica | | | PACIFI | | 19-Pre | | | id | | | CSOURC | | sent | | | | | | E | | | | | | + +--------+ +--------+ + +--------+ + +--------+ +--------+ + + | Guarantor Name | Accoun | Relation to | Date | Phone | Billing Address | | | t Type | Patient | of | | | | | | | | | | + +--------+ +--------+ + + | Mendez Castañeda | Person | Self [birth year] | GENERAL DELIVERY | | | al/Fam | | 1975 | [phone] | [place] [address] | | | elisabet | | | 2 (Home) | | + +--------+ +--------+ + + | Mendez Castañeda | Person | Self | [birth year] | GENERAL DELIVERY | | | al/Fam | | 1974 | [phone] | [place] [address] | | | elisabet | | | 2 (Home) | | + +--------+ +--------+ + + Advance Directives + + + + + | Code Status | Date | Date | Comments | | | Activated | Inactivated | | + + + + + | Full Code | 09/04/2019 | 09/05/2019 | | | | 7:48 AM | 6:21 AM | | + + + + + + + + +---+ | | | | | + + + +---+ | Full Code | 08/18/2018 | 08/19/2018 | | | | 11:12 AM | 6:23 AM | | + + + +---+ + + + +---+ | | | | | + + + +---+ | Full Code | 03/08/2017 | 03/09/2017 | | | | 5:23 AM | 8:42 PM | | + + + +---+
--- OUTSIDE RECORDS SUMMARY | ~2020-05-06 | XMS | Encounter Summary ---
Demographics + + + | Address | [address] | | | [place] [address] | + + + | Home Phone [...] Author + + + | Author | [facility] | + + + | Organization | [facility] | + + + | Address | Unknown | + + + | Phone | Unavailable | + + + Support + + + + + | Name | Relationship | Address | Phone | + + + + + | Neda Santos | ECON | [place] | | | | | [address] | | + + + + + Care Team Providers + +------+ + | Care Lgsw Name | Role | Phone | + +------+ + | Herbert Marie MD,MPH | PCP | Unavailable | + +------+ + Encounter Details +--------+ + + + + | Date | Type | Department | Care Team | Description | +--------+ + + + + | 04/19/ | Hospital | Diagnostic Imaging | | | | 2015 | Encounter | at [facility] | | | | | | [address] | | | | | | [place] | | | | | | [address] | | | | | | [phone] | | | +--------+ + + + [...] + + | [address] | [facility] | | [place] [address] | DEPARTMENT | | [phone] Name: CHUCK SANTOS Phys: | RADIOLOGY | | ANNE URRUTIA Magalie : 1975 Sex: M CSN: | | | [id number] MR# [id number] Exam Date: 04/19/2016 | | | EXAM: [...] Transcribed Date/Time: 04/19/2016 14:08 | | | Grain Unloader Machine: FLUENCY | | + + + + + | Procedure Note | + + | Interface, Radiology Results - 04/19/2016 2:12 PM PDT [address] | [place], [place] [address] | | Name: CHUCK SANTOS Phys: ANNE URRUTIA : 1975 Sex: M CSN: | | [id number] MR# [id number] Exam Date: 04/19/2016 EXAM:TWO VIEW CHEST XRAY [...] | | |Transcribed Date/Time: 04/19/2016 14:08 | |Grain Unloader Machine: FLUENCY | | | | | | [...]
--- OUTSIDE RECORDS SUMMARY | ~2020-05-06 | XMS | Encounter Summary ---
Demographics + + + | Address | [address] | | | [place] [address] | + + + | Home Phone | | + + + | Preferred Language | Unknown | + + + | Marital Status | Single | + + + | Congregation Affiliation | NRP | + + + [...] [place] | | | | | [address] | | + + + + + Care Team Providers + +------+ + | Care Earth Science Teacher Name | Role | Phone | [...] | | | | | [address] [place], | [place] | | | | | [place] [address] | [address] | | | | | [phone] | [phone] | | | | | | | [...]
--- OUTSIDE RECORDS SUMMARY | ~2020-05-06 | XMS | Encounter Summary ---
Demographics + + + | Address | [address] | | | [place] [address] | + + + | Home Phone [...] [place] | | | | | [address] | | + + + + + Care Team Providers + +------+ + | Care Rn Obgyn Name | Role | Phone | + [...] Description | +--------+--------+ + + + | 01/21/ | Refill | [facility] | Herbert Marie, | Refill Request | | 2017 | | Medicine [address] | ,[facility] | (famotidine) | | | | [address] [place], | | | | | | [place] [address] | | | | | | [phone] | | | +--------+--------+ + + + [...]
--- OUTSIDE RECORDS SUMMARY | ~2020-05-06 | XMS | Encounter Summary ---
Demographics + + + | Address | [address] | | | [place] [address] | + + + | Home Phone [...] [place] | | | | | [address] | | + + + + + Care Team Providers + +------+ + | Care Rim Fire Charger Operator Name | Role | Phone | + +------+ + | Herbert Marie MD,MPH | PCP | Unavailable | + +------+ + Encounter Details +--------+------+ + + + | Date | Type | Department | Care Team | Description | +--------+------+ + + + | 09/12/ | Lab | Laboratory at [facility] | | Prediabetes; | | 2015 | | Family Medicine | | Elevated ALT | | | | [address] | | measurement; Mixed | | | | [place], [place] | | hyperlipidemia | | | | [address] | | | | | | [phone] | | | +--------+------+ + + + Social History [...] + | COMPLETE METABOLIC | Routin | 09/12/2016 | Elevated ALT | Results for this | | SET | e | 10:49 AM | measurement | procedure are in the | | (NA,K,CL,CO2,BUN,CRE | | PST | | results section. | | AT,GLUC,CA,AST,ALT,B | | | | | | FRED TOTAL,ALK | | | | | | PHOS,ALB,PROT TOTAL) | | | | | + +--------+ + + + | LIPID SET (TRIG, T | Routin | 09/12/2016 | Mixed | Results for this | | CHOL, HDL, CALC LDL) | e | 10:49 AM | hyperlipidemia | procedure are in the | | | | PST | | results section. | + +--------+ + + + | HEMOGLOBIN A1C, | Routin | 09/12/2016 | Prediabetes | Results for this | | BLOOD | e | 10:49 AM | | procedure are in the [...] (H) | 101 - 199 mg/dL | [facility] | | | (LAB) | | | A MEDICAL | | | | | | CENTER | | + + + + + + | TRIGLYCERID | 190 (H) | 45 - 150 mg/dL | [facility] | | | ES | | | A MEDICAL | | | | | | CENTER | | + + + + + + | HDL | 34 (L) | >40 mg/dL | [facility] | | | CHOLESTEROL | | | A MEDICAL | | | | | | CENTER | | + + + + + + | LDL | 200 (H) | <100 mg/dL | [facility] | | | CHOLESTEROL | | | A MEDICAL | | | , | | | CENTER | | | CALCULATED | | | | | + + + + + + | VLDL | 38 (H) | 9 - 30 mg/dL | [facility] | | | CHOLESTEROL | | | [...] 30 mg/dL higher than | [facility] | | that for LDL cholesterol. Cardiac Risk Ratio Interpretation: | [facility] | | Interpretation Cardiac Risk Ratio Below Average | | | Risk 0.0 - 3.4 Above Average Risk | | | 3.5 - 4.9 | | + + + + + + + + | Performing | Address | City/State/Zipcode | Phone Number | | Organization | | | | + + + + + | [facility] | And | [place] | [phone] | | [facility] | Streets | [address] | | + + + + + COMPLETE METABOLIC SET (NA,K,CL,CO2,BUN,CREAT,GLUC,CA,AST,ALT,BILI TOTAL,ALK PHOS,ALB,PROT TOTAL) (09/12/2016 10:49 AM PST) + + + + + + | Component | Value | Ref Range | Performed | Pathologist | | | | | At | Signature | + + + + + + | GLUCOSE, | 101 | 70 - 105 mg/dL | [facility] | | | PLASMA | | | A MEDICAL | | | (LAB) | | | CENTER | | + + + + + + | BUN, PLASMA | 13 | 6 - 26 mg/dL | [facility] | | | (LAB) | | | A MEDICAL | | | | | | CENTER | | + + + + + + | CREATININE, | 1.3 | 0.9 - 1.3 mg/dL | [facility] | | | PLASMA | | | A MEDICAL | | | | | | CENTER | | + + + + + + | SODIUM, | 142 | 137 - 146 | [facility] | | | PLASMA | | mmol/L | A MEDICAL | | | (LAB) | | | CENTER | | + + + + + + | POTASSIUM, | 4.1 | 3.4 - 5.3 | [facility] | | | PLASMA | | mmol/L | A MEDICAL | | | (LAB) | | | CENTER | | + + + + + + | CHLORIDE, | 101 | 96 - 106 mmol/L | [facility] | | | PLASMA | | [...] | | A MEDICAL | | | RWANDAN | | | CENTER | | + [...] | YesComment: 15.5 hr pc | | [facility] | | | HOURS [place] | | [...] equation recommended by the | [facility] | | National Kidney Disease Education Program. Estimated GFR | [facility] | | Interpretive Information: <60 mL/min/1.73 [...] + + + + | [facility] | And | [place] | [phone] | | [facility] | Streets | [address] | | + + + + + HEMOGLOBIN A1C, BLOOD (09/12/2016 10:49 AM PST) + +-------+ + + + | Component | Value | Ref Range | Performed | Pathologist | | | | | At | Signature | + +-------+ + + + | HEMOGLOBIN | 5.6 | % | [facility] | | | A1C | | | A MEDICAL | | | | | | CENTER | | + +-------+ + + + | ESTIMATED | 114 | mg/dL | [facility] | | | AVERAGE | | | [...] | [facility] | | Normal Range: <6% | [facility] | | Good Control: <7% | | | Additional action suggested: >8% Non-Diabetic | | | Ranges: 4-6% Basin Cleaner's Glycohemoglobin | | | Diabetic Ranges: Normal Range: | | | 4.0-6.0% Good Control: | | | 6.0-8.0% Poor Control: | | | >8.0% | | + + + + + + + + | Performing | Address | City/State/Zipcode | Phone Number | | Organization | | | | + + + + + | [facility] | And | [place] | [phone] | | [facility] [address] | [address] | | + + + + + documented in this encounter Visit Diagnoses + + | Diagnosis | + + | Prediabetes Other abnormal glucose | + + | Elevated ALT measurement Nonspecific elevation of levels of transaminase or lactic | | acid dehydrogenase (LDH) | + + | Mixed hyperlipidemia | + + documented in this encounter"
--- OUTSIDE RECORDS SUMMARY | ~2020-05-06 | XMS | Encounter Summary ---
Demographics + + + | Address | [place] DEL[place]ERY | | | [place] [address] | + + + | Home Phone [...] [place] | | | | | [address] | | + + + + + Care Team Providers + +------+ + | Care Router Operator Name | Role | Phone | [...] | Hospital [address] | DO [address] | | | | | [place], | [place] [address] | | | | | [place] [address] | [phone] | | | | | [phone] | | | +--------+ + + + [...] + +--------+ + + + | US AORTA | Routin | 03/03/2019 | Thoracic aortic | Results for this | | | e | 7:28 AM | aneurysm without | procedure are in the | | | | PDT | rupture (HCC) | results section. | + +--------+ + + + documented in this encounter Results US AORTA (03/03/2019 7:28 AM PDT) + + | Specimen | + + | | + + + + + | Narrative | Performed At | + + + | [address] | [facility] | | [place] [address] | DEPARTMENT OF | | [phone] Name: CHUCK SANTOS Phys: | RADIOLOGY | | ILIANA JAVED : 1975 Sex: M | | | CSN: [id number] MR# [id number] Exam Date: | | | 03/03/2019 EXAM: [...] Transcribed Date/Time: 03/03/2019 08:11 | | | Wood Die Maker: FLUENCY | | + + + + + | Procedure Note | + + | Interface, Radiology Results - 03/03/2019 8:15 AM PDT [address] | | [address] [place] [address] | | Name: CHUCK SANTOS Phys: ILIANA JAVED : 1975 Sex: M | | CSN: [id number] MR# [id number] Exam Date: 03/03/2019 EXAM:US AORTA CLINICAL | [...] | | |Transcribed Date/Time: 03/03/2019 08:11 | |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
--- OUTSIDE RECORDS SUMMARY | ~2020-05-06 | XMS | Encounter Summary ---
Demographics + + + | Address | [place] | | | [place] [address] | + + + | Home Phone [...] [place] | | | | | [address] | | + + + + + Care Team Providers + +------+ + | Care Paper Machine Backtender Name | Role | Phone | + +------+ + | Violeta Parker DO | PCP | | + +------+ + Encounter Details +--------+ + + + + | Date | Type | Department | Care Team | Description | +--------+ + + + + | 03/05/ | Procedure | Diagnostic Imaging | | | | 2019 | Pass | at [facility] | | | | | | [address] | | | | | | [place] | | | | | | [address] | | | | | | [phone] | | | +--------+ + + + [...]
--- OUTSIDE RECORDS SUMMARY | ~2020-05-06 | XMS | Encounter Summary ---
Demographics + + + | Address | [place] | | | [place] [address] | + + + | Home Phone [...] [place] | | | | | [address] | | + + + + + Care Team Providers + +------+ + | Care Automotive Parts Clerk Name | Role | Phone | + +------+ + | Violeta Parker DO | PCP | | + +------+ + Encounter Details +--------+--------+ + + + | Date | Type | Department | Care Team | Description | +--------+--------+ + + + | 10/31/ | Travel | | | | | 2020 | | | | | +--------+--------+ + [...]
--- OUTSIDE RECORDS SUMMARY | ~2020-05-06 | XMS | Encounter Summary ---
Demographics + + + | Address | [place] | | | [place] [address] | + + + | Home Phone [...] [place] | | | | | [address] | | + + + + + Care Team Providers + +------+ + | Care Linux Admin Name | Role | Phone | + +------+ + | Violeta Parker DO | PCP | | + +------+ + Encounter Details +--------+ + + + + | Date | Type | Department | Care Team | Description | +--------+ + + + + | 03/24/ | Procedure | Diagnostic Imaging | | | | 2018 | Pass | [facility] | | | | | | [address] | | | | | | [place] | | | | | | [address] | | | | | | [phone] | | | +--------+ + + + [...]
--- OUTSIDE RECORDS SUMMARY | ~2020-05-06 | XMS | Encounter Summary ---
Demographics + + + | Address | [place] | | | [place] [address] | + + + | Home Phone [...] [place] | | | | | [address] | | + + + + + Care Team Providers + +------+ + | Care Pulp Roller Name | Role | Phone | + +------+ + | Violeta Parker DO | PCP | | + +------+ + Encounter Details +--------+ + + + + | Date | Type | Department | Care Team | Description | +--------+ + + + + | 12/23/ | Procedure | Diagnostic Imaging | | | | 2018 | Pass | [facility] | | | | | | [address] | | | | | | [place] | | | | | | [address] | | | | | | [phone] | | | +--------+ + + + [...]
--- OUTSIDE RECORDS SUMMARY | ~2020-05-06 | XMS | Encounter Summary ---
Demographics + + + | Address | [place] | | | [place] [address] | + + + | Home Phone [...] [place] | | | | | [address] | | + + + + + Care Team Providers + +------+ + | Care Mva Still Operator Name | Role | Phone | + +------+ + | Violeta Parker DO | PCP | | + +------+ + Encounter Details +--------+--------+ + + + | Date | Type | Department | Care Team | Description | +--------+--------+ + + + | 08/14/ | Travel | | | | | [...]
--- OUTSIDE RECORDS SUMMARY | ~2020-05-06 | XMS | Encounter Summary ---
Demographics + + + | Address | [place] | | | [place] [address] | + + + | Home Phone [...] [place] | | | | | [address] | | + + + + + Care Team Providers + +------+ + | Care Emergency Doctor Name | Role | Phone | + [...] Refill Request | | 2015 | | [facility] | [facility] | | | | | Clinic [address] | | | | | | St [place], [place] | | | | | | [address] | | | | | | [phone] | | | +--------+--------+ + + + [...]
--- OUTSIDE RECORDS SUMMARY | ~2020-05-06 | XMS | Encounter Summary ---
Demographics + + + | Address | [place] | | | [place] [address] | + + + | Home Phone [...] + + + | Author | [facility] | + + + | Organization | [facility] | + + + | Address | Unknown | + + + | Phone | Unavailable | + + + Support + + + + + | Name | Relationship | Address | Phone | + + + + + | Neda Castañeda | ECON | [place] | | | | | [address] | | + + + + + Care Team Providers + +------+ + | Care Qa Test Lead Name | Role | Phone | + [...] [place] | | | | | | [address] | | | | | | [phone] | | | | | | | [...] + + + | CHEST 2 VIEW [id number] | Routin | 08/22/2011 | | Results for this | | | e | 7:13 PM | | procedure are in the | | | | PST | | results section. | + +--------+ + + + documented in this encounter Results CHEST 2 VIEW [id number] (08/22/2011 7:13 PM PST) + + | [...] No acute disease in the chest. Job [id number] | | + + + + + [...] disease in the chest. | | Job [id number] | + + + +---------+ + + [...]
--- OUTSIDE RECORDS SUMMARY | ~2020-05-06 | XMS | Encounter Summary ---
Demographics + + + | Address | [place] | | | [place] [address] | + + + | Home Phone [...] [place] | | | | | [address] | | + + + + + Care Team Providers + +------+ + | Care Employee Service Officer Name | Role | Phone | + +------+ + | Violeta Parker DO | PCP | | + +------+ + Encounter Details +--------+ + + + + | Date | Type | Department | Care Team | Description | +--------+ + + + + | 09/07/ | Telephone | [facility] | [place], | | | 2019 | | Surgery Clinic [address] | Angel Woodall MD [address] | | | | | [address] | [address] | | | | | [place] | [place] | | | | | [address] | [address] | | | | | [phone] | [phone] | | | | | | | [...]
--- OUTSIDE RECORDS SUMMARY | ~2020-05-06 | XMS | Encounter Summary ---
Demographics + + + | Address | [place] | | | [place] [address] | + + + | Home Phone [...] + + | Author | [facility] | + + + | Organization | [facility] | + + + | Address | Unknown | + + + | Phone | Unavailable | + + + Support + + + + + | Name | Relationship | Address | Phone | + + + + + | Neda Castañeda | ECON | [place] | | | | | [address] | | + + + + + Care Team Providers + +------+ + | Care Senior Bookkeeper Name | Role | Phone | + +------+ + | Herbert Marie MD,MPH | PCP | Unavailable | + +------+ + Reason for Visit + + + | Reason | Comments | + + + | Refill Request | GABAPENTIN, TIZANIDINE | + + + Encounter Details +--------+--------+ + + + | Date | Type | Department | Care Team | Description | +--------+--------+ + + + | 11/08/ | Refill | [facility] | [facility], | Refill Request | | 2017 | | Medicine [address] | [facility] | (GABAPENTIN, | | | | [address] [place], | | TIZANIDINE) | | | | [place] [address] | | | | | | [phone] | | | +--------+--------+ + + + [...]
--- OUTSIDE RECORDS SUMMARY | ~2020-05-06 | XMS | Encounter Summary ---
Demographics + + + | Address | [place] | | | [place] [address] | + + + | Home Phone | | + + + | Preferred Language | Unknown | + + + | Marital Status | Single | + + + | [employer] Affiliation | NRP | + + + [...] [place] | | | | | [address] | | + + + + + Care Team Providers + +------+ + | Care Bolt Maker Name | Role | Phone | + [...] | | | | | without | [place], | [address] | | | | | rupture | [place] [address] | Phone: | | | | | ([facility]) | Phone: | [phone] | | | | | Procedures | [phone] | | | | | | CTA CHEST | Fax: | | | | | | WWO CONTRAST | [phone] | | +--------+--------+ + + + + [...] | | | | | without | [place], | [address] | | | | | rupture | [place] [address] | Phone: | | | | | ([facility]) | Phone: | [phone] | | | | | Procedures | [phone] | | | | | | CTA CHEST | Fax: | | | | | | WWO CONTRAST | [phone] | | +--------+--------+ + + + + Encounter Details +--------+ + + + + | Date | Type | Department | Care Team | Description | +--------+ + + + + | 04/30/ | Hospital | Diagnostic Imaging | Iliana Parker, | | | 2019 | Encounter | at [facility] | DO [address] | | | | | [address] | [place] [address] | | | | | [place], [place] | [phone] | | | | | [address] | | | | | | [phone] | | | +--------+ + + + [...] | + + + | [address] [place] [address] | [facility] | | [place] [address] | DEPARTMENT | | [phone] Name: CHUCK SANTOS Phys: | RADIOLOGY | | TELLOILIANA M : 1975 Sex: M | | | CSN: [id number] MR# [id number] Exam Date: | | | 04/30/2019 EXAM: [...] | | | Transcribed Date/Time: 04/30/2019 09:58 Balance Wheel Motion Inspector: FLUENCY | | | | | + + + + + | Procedure Note | + + | Interface, Radiology Results - 04/30/2019 10:03 AM PDT [address] | | [address] [place] [address] | | Name: CHUCK SANTOS Phys: ILIANA JAVED : 1975 Sex: M | | CSN: [id number] MR# [id number] Exam Date: 04/30/2019 EXAM:CTA CHEST COMBINED | [...] | | |Transcribed Date/Time: 04/30/2019 09:58 | |Balance Wheel Motion Inspector: FLUENCY | | | | | | [...] | | | dose, Starting [facility] 04/30/19 at | | | 0853, Until [facility] 04/30/19 at 0909 | | + +---+ | | | + +---+ + +---------+ +-------+---+ + | sodium chloride 0.9 % (NS) IV | New Bag | 04/30/20 | 60 mL | | Right AC | | infusion 100 mL, intravenous, | | 19 9:09 | | | | | ONCE, 1 dose, [facility] 04/30/19 at 1000 | | AM PDT | | | | + +---------+ +-------+---+ + +---+---+ | | | +---+---+ documented in this encounter"
--- OUTSIDE RECORDS SUMMARY | ~2020-05-06 | XMS | Encounter Summary ---
Demographics + + + | Address | [address] DELIVERY | | | [place] [address] | + + + | Home Phone [...] + + + | Author | [facility] | + + + | Organization | [facility] | + + + | Address | Unknown | + + + | Phone | Unavailable | + + + Support + + + + + | Name | Relationship | Address | Phone | + + + + + | Neda Castañeda | ECON | [place] | | | | | [address] | | + + + + + Care Team Providers + +------+ + | Care Pest Control Worker Helper Name | Role | Phone | + +------+ + | Herbert Marie MD,MPH | PCP | Unavailable | + +------+ + Reason for Visit + + + | Reason | Comments | + + + | Chart Abstract | | + + + Encounter Details +--------+ + + + + | Date | Type | Department | Care Team | Description | +--------+ + + + + | 01/10/ | Abstract | Family Medicine at | Herbert Marie, | Chart Abstract | | 2015 | | [facility] | [facility] | | | | | Clinic [address] | | | | | | St [place], [place] | | | | | | [address] | | | | | | [phone] | | | +--------+ + + + [...]
--- OUTSIDE RECORDS SUMMARY | ~2020-05-06 | XMS | Encounter Summary ---
Demographics + + + | Address | [address] | | | [place] [address] | + + + | Home Phone [...] [place] | | | | | [address] | | + + + + + Care Team Providers + +------+ + | Care Flight Attendant Ramp Name | Role | Phone | + [...] Dx); Mixed | | | | [place], | | hyperlipidemia; | | | | [place] [address] | | Elevated ALT | | | | [phone] | | measurement; | | | | [...] PDTTest results will be r eleased through [facility] [employer] [facility] or sent as a letter. It may [...] Instructions Test results will be released through [employer] [facility] or sent as a letter. It may [...] CR 1.2 03/08/2017 CR 1.2 03/08/2017 Microalbumin RESUFAST(microalbumin,uralbumin,pmdprf25c,urcreatconc)@ not done Other CAD Risk Factors Smoking [...] | + + + + + | [facility] | [address] | [place], [place] | [phone] | | [facility] | Streets | [address] | | + + + + + COMPLETE METABOLIC SET (NA,K,CL,CO2,BUN,CREAT,GLUC,CA,AST,ALT,BILI TOTAL,ALK PHOS,ALB,PROT TOTAL) (03/13/2017 9:32 AM PDT) + +-------+ + + + | Component | Value | Ref Range | Performed | Pathologist | | | | | At | Signature | + +-------+ + + + | GLUCOSE, | 98 | 70 - 105 mg/dL | [facility] | | | PLASMA | [...] | | A MEDICAL | | | CRO[facility]IAN | | | CENTER | | + [...] the MDRD equation recommended by the | [facility] | | National Kidney Disease Education Program. Estimated GFR | [facility] | | Interpretive Information: <60 mL/min/1.73 [...] | + + + + + | [facility] | And | [place], [place] | [phone] | | MEDICAL CENTER | Street | [address] | | + + + + + HEMOGLOBIN A1C, BLOOD (03/13/2017 9:32 AM PDT) + +-------+ + + + | Component | Value | Ref Range | Performed | Pathologist | | | | | At | Signature | + +-------+ + + + | HEMOGLOBIN | 5.7 | % | [facility] | | | A1C | | | A MEDICAL | | | | | | CENTER | | + +-------+ + + + | ESTIMATED | 117 | mg/dL | [facility] | | | AVERAGE | [...] Diabetic Ranges per DCCT & ADA: | [facility] | | Normal Range: <6% | MEDICAL CENTER | | Good Control: <7% | | | Additional action suggested: >8% Non-Diabetic | | | Ranges: 4-6% Spring Tier's Glycohemoglobin | | | Diabetic Ranges: Normal Range: | | | 4.0-6.0% Good Control: | | | 6.0-8.0% Poor Control: | | | >8.0% | | + + + + + + + + | Performing | Address | City/State/Zipcode | Phone Number | | Organization | | | | + + + + + | [facility] | [address] | [place], [place] | [phone] | | [facility] [place] | [facility] | [address] | | + + + + + [...] | + + + + + | [facility] | [address] [place] [address] | [place] | | | FAMILY MEDICINE | | [address] | | + + + + + [...]
--- OUTSIDE RECORDS SUMMARY | ~2020-05-06 | XMS | Encounter Summary ---
Demographics + + + | Address | [address] | | | [place] [address] | + + + | Home Phone | | + + + | Preferred Language | Unknown | + + + | Marital Status | Single | + + + | Latter-Day Affiliation | NRP | + + + [...] | + + + + + | Ndea Santos | ECON | [place] | | | | | [address] | | + + + + + Care Team Providers + +------+ + | Care Health Policy Analyst Name | Role | Phone | [...] Closed | | Radiology | Diagnoses | [facility] | [facility] | | | | | DDD | Epic Dept | [address] | | | | | (degenerativ | | [facility] | | | | | e disc | | [place], [place] | | | | | disease), | | [address] | | | | | cervical | | Phone: | | | | | Chronic left | | [phone] | | | | | shoulder | | | | | | | pain | | | | | | | Numbness of | | | | | | | hand | | | | | | | Procedures | | | | | | | MRI SPINE | | | | | | | CERVICAL WO | | | | | | | CONTRAST [...] Closed | | Radiology | Diagnoses | [facility] | [facility] | | | | | DDD | Epic Dept | [address] | | | | | (degenerativ | | [facility] | | | | | e disc | | [place], [place] | | | | | disease), | | [address] | | | | | cervical | | Phone: | | | | | Chronic left | | [phone] | | | | | shoulder | | | | | | | pain | | | | | | | Numbness of | | | | | | | hand | | | | | | | Procedures | | | | | | | MRI SPINE | | | | | | | CERVICAL WO | | | | | | | CONTRAST | | | +--------+--------+ + + + + Encounter Details +--------+ + + + + | Date | Type | Department | Care Team | Description | +--------+ + + + + | 01/01/ | Hospital | Diagnostic Imaging | Iliana Parker, | | | 2019 | Encounter | at [facility] | DO [address] | | | | | [address] The | [place] [address] | | | | | [place] | [phone] | | | | | [address] | | | | | | [phone] | | | +--------+ + + + [...] +--------+ + + + | MRI SPINE CERVICAL | Routin | 01/01/2019 | DDD (degenerative | Results for this | | WO CONTRAST | e | 10:31 AM | disc disease), | procedure are in the | | | | PDT | cervical Chronic | results section. | | | | | left shoulder pain | | | | | | Numbness of hand | | + +--------+ + + + | ORDERS OTHER | | 01/01/2019 | | Results for this | | | | 12:00 AM | | procedure are in the | | | | PDT | | results section. | + +--------+ + + + documented in this encounter Results MRI SPINE CERVICAL WO CONTRAST (01/01/2019 10:31 AM PDT) + + | Specimen | + + | | + + + + + | Narrative | Performed At | + + + | [address] | [facility] | | [place] [address] | DEPARTMENT | | [phone] Name: CHUCK SANTOS Phys: | RADIOLOGY | | ILIANA JAVED : 1975 Sex: M | | | CSN: [id number] MR# [id number] Exam Date: | | | 01/01/2019 EXAM: MRI OF THE CERVICAL SPINE WITHOUT CONTRAST | | | CLINICAL HISTORY: Degenerative disc disease, chronic left shoulder | | | and right hand paresthesias. COMPARISON: Cervical spine CT from | | | 05/07/2018. TECHNIQUE: Multiplanar, multisequence noncontrast MRI | | | images of the cervical spine were obtained. FINDINGS: | | | Prevertebral soft tissues: Normal. Alignment: Normal, with | | | reversal of the normal cervical lordosis. Vertebral body heights: | | | Normal. Craniocervical junction: Normal. Marrow signal: | | | Normal. Cervical cord: Normal in signal without focal edema, | | | atrophy or mass. Vertebral artery flow voids: Normal. | | | Additional findings:There are postoperative changes from anterior | | | cervical discectomy and fusion of C6-7. There is moderate anterior | | | spondylosis at C5-6. LEVEL BY LEVEL FOLLOWS: C2-3: Mild | | | diffuse disc osteophyte complex with bilateral mild facet | | | arthropathy. No central canal or foraminal stenosis. C3-4: | | | Neeo-jv-jhetpemz diffuse disc osteophyte complex with bilateral mild | | | facet arthropathy. Mild bilateral foraminal stenosis. No | | | significant central canal stenosis. C4-5: Mild diffuse disc | | | osteophyte complex, bilateral mild facet arthropathy and no | | | significant central canal or foraminal stenosis. C5-6: Bilateral | | | large foraminal disc osteophyte complexes are present with mild | | | central canal stenosis and bilateral moderate foraminal stenosis. | | | There is bilateral mild facet arthropathy. C6-7: Mild diffuse | | | hypertrophic spurring. No central canal or foraminal stenosis. | | | C7-T1: Mild diffuse disc osteophyte complex without central canal or | | | foraminal stenosis. IMPRESSION: 1. Postoperative changes from | | | anterior cervical discectomy and fusion at C6-7. 2. Bilateral large | | | foraminal disc osteophyte complexes at C5-6 resulting in mild central | | | canal and bilateral moderate foraminal stenosis. 3. | | | Vptx-gj-djubvprq C3-4 diffuse disc osteophyte complex with bilateral | | | mild facet arthropathy and bilateral mild foraminal stenosis. | | | REPORT SIGNED IN OTHER VENDOR SYSTEM 01/01/2019 Reported by: | | | WADE MARTÍNEZ MD Electronically signed by: WADE MARTÍNEZ | | | Transcribed Date/Time: 01/01/2019 13:49 Assistant Media Buyer: | | | FLUENCY | | + + + + + | Procedure Note | + + | Interface, Radiology Results - 01/01/2019 1:54 PM PDT [address] | | [place] [address] | | Name: CHUCK SANTOS Phys: ILIANA JAVED : 1975 Sex: M | | CSN: [id number] MR# [id number] Exam Date: 01/01/2019 EXAM:MRI OF THE CERVICAL | | SPINE WITHOUT CONTRAST CLINICAL HISTORY:Degenerative disc disease, chronic left shoulder | | and right handparesthesias. COMPARISON:Cervical spine CT from 05/07/2018. | | TECHNIQUE:Multiplanar, multisequence noncontrast MRI images of the cervicalspine were | | obtained. FINDINGS:Prevertebral soft tissues: Normal. Alignment: Normal, with reversal | | of the normal cervical lordosis. Vertebral body heights: Normal. Craniocervical | | junction: Normal. Marrow signal: Normal. Cervical cord: Normal in signal without focal | | edema, atrophy or mass. Vertebral artery flow voids: Normal. Additional findings:There | | are postoperative changes from anteriorcervical discectomy and fusion of C6-7. There is | | moderate anteriorspondylosis at C5-6. LEVEL BY LEVEL FOLLOWS:C2-3: Mild diffuse disc | | osteophyte complex with bilateral mild facetarthropathy. No central canal or foraminal | | stenosis. C3-4: Juvy-bh-dgzwcswa diffuse disc osteophyte complex with bilateralmild | | facet arthropathy. Mild bilateral foraminal stenosis. Nosignificant central canal | | stenosis. C4-5: Mild diffuse disc osteophyte complex, bilateral mild facetarthropathy | | and no significant central canal or foraminal stenosis. C5-6: Bilateral large foraminal | | disc osteophyte complexes are presentwith mild central canal stenosis and bilateral | | moderate foraminalstenosis. There is bilateral mild facet arthropathy. C6-7: Mild | | diffuse hypertrophic spurring. No central canal orforaminal stenosis. C7-T1: Mild | | diffuse disc osteophyte complex without central canal orforaminal stenosis. | | IMPRESSION:1. Postoperative changes from anterior cervical discectomy and fusionat | | C6-7.2. Bilateral large foraminal disc osteophyte complexes at C5-6resulting in mild | | central canal and bilateral moderate foraminalstenosis.3. Yzvm-ft-imgxicdo C3-4 diffuse | | disc osteophyte complex withbilateral mild facet arthropathy and bilateral mild | | foraminalstenosis. REPORT SIGNED IN OTHER VENDOR SYSTEM 01/01/2019 Reported by: | | WADE MARTÍNEZ MD Electronically signed by: WADE MARTÍNEZ MD Transcribed | | Date/Time: 01/01/2019 13:49Transcriptionist: FLUENCY | |Alignment: Normal, with reversal of the normal cervical lordosis. | | | |Vertebral body heights: Normal. | | | |Craniocervical junction: Normal. | | | |Marrow signal: Normal. | | | |Cervical cord: Normal in signal without focal edema, atrophy or mass. | | | |Vertebral artery flow voids: Normal. | | | |Additional findings:There are postoperative changes from anterior | |cervical discectomy and fusion of C6-7. There is moderate anterior | |spondylosis at C5-6. | | | |LEVEL BY LEVEL FOLLOWS: | |C2-3: Mild diffuse disc osteophyte complex with bilateral mild facet | |arthropathy. No central canal or foraminal stenosis. | | | |C3-4: Nhrt-ar-fcqyyybw diffuse disc osteophyte complex with bilateral | |mild facet arthropathy. Mild bilateral foraminal stenosis. No | |significant central canal stenosis. | | | |C4-5: Mild diffuse disc osteophyte complex, bilateral mild facet | |arthropathy and no significant central canal or foraminal stenosis. | | | |C5-6: Bilateral large foraminal disc osteophyte complexes are present | |with mild central canal stenosis and bilateral moderate foraminal | |stenosis. There is bilateral mild facet arthropathy. | | | |C6-7: Mild diffuse hypertrophic spurring. No central canal or | |foraminal stenosis. | | | |C7-T1: Mild diffuse disc osteophyte complex without central canal or | |foraminal stenosis. | | | |IMPRESSION: | |1. Postoperative changes from anterior cervical discectomy and fusion | |at C6-7. | |2. Bilateral large foraminal disc osteophyte complexes at C5-6 | |resulting in mild central canal and bilateral moderate foraminal | |stenosis. | |3. Dutu-rz-ambfljdz C3-4 diffuse disc osteophyte complex with | |bilateral mild facet arthropathy and bilateral mild foraminal | |stenosis. | | | | | | REPORT SIGNED IN OTHER VENDOR SYSTEM 01/01/2019 | |Reported by: WADE MARTÍNEZ MD | | | |Electronically signed by: WADE MARTÍNEZ MD | | | |Transcribed Date/Time: 01/01/2019 13:49 | |Assistant Media Buyer: FLUENCY | | | | | | | + + + +---------+ + + | Performing | Address | City/State/Zipcode | Phone Number | | Organization | | | | + +---------+ + + | [facility] | | | | | RADIOLOGY | | | | + +---------+ + + ORDERS OTHER (01/01/2019 12:00 AM PDT) + + + | Narrative | Performed At | + + + | | | + + + documented in this encounter Visit Diagnoses + + | Diagnosis | + + | DDD (degenerative disc disease), cervical Degeneration of cervical intervertebral | | disc | + + | Chronic left shoulder pain Pain in joint, shoulder region | + + | Numbness of hand Disturbance of skin sensation | + + documented in this encounter"
--- OUTSIDE RECORDS SUMMARY | ~2020-05-06 | XMS | Encounter Summary ---
Demographics + + + | Address | [address] | | | [place] [address] | + + + | Home Phone | | + + + | Preferred Language | Unknown | + + + | Marital Status | Single | + + + | Moravian Affiliation | NRP | + + + [...] [place] | | | | | [address] | | + + + + + Care Team Providers + +------+ + | Care Digital Photo Printer Name | Role | Phone | + [...] | pain with | [place], [place] | [address] | | | | | left-sided | [address] | Phone: | | | | | sciatica | Phone: | [phone] | | | | | Procedures | [phone] | | | | | | MRI SPINE | Fax: | | | | | | LUMBAR WO | [phone] | | | | | | CONTRAST [...] Closed | | Radiology | Diagnoses | Karmen, | [facility] | | | | | Chronic | SERGIO [facility]ady | [address] | | | | | left-sided | [address] | [address] | | | | | low back | St The | [place], [place] | | | | | pain with | [place] | [address] | | | | | left-sided | [address] | Phone: | | | | | sciatica | Phone: | [phone] | | | | | Procedures | [phone] | | | | | | MRI SPINE | Fax: | | | | | | LUMBAR WO | [phone] | | | | | | CONTRAST | | | +--------+--------+ + + + + Encounter Details +--------+ + + + + | Date | Type | Department | Care Team | Description | +--------+ + + + + | 03/15/ | Hospital | Diagnostic Imaging | Miguel A Medrano PA-C | | | 2017 | Encounter | at [facility] | [address] | | | | | [address] | [place], [place] | | | | | [address] | [address] | | | | | [address] | [phone] | | | | | [phone] | | | +--------+ + + + [...] | + + + | [address] [place] [address] | [facility] | | [place] [address] | DEPARTMENT OF | | [phone] Name: CHUCK SANTOS Phys: | RADIOLOGY | | MIGUEL A MEDRANO : 1975 Sex: M CSN: | | | [id number] MR# [id number] Exam Date: 03/15/2018 | | | EXAM: MRI SPINE LUMBAR WO CONTRAST [id number] CLINICAL HISTORY: | | | 42-year-old male [...] | | | Transcribed Date/Time: 03/17/2018 00:43 Canoe Inspector Final: FLUENCY | | | | | + + + + + | Procedure Note | + + | Interface, Radiology Results - 03/17/2018 12:48 AM PDT [address] | | [place] [address] | | Name: CHUCK SANTOS Phys: MIGUEL A MEDRANO : 1975 Sex: M CSN: | | [id number] MR# [id number] Exam Date: 03/15/2018 EXAM:MRI SPINE LUMBAR WO | | CONTRAST [id number] CLINICAL HISTORY:42-year-old male with low back pain [...] | | |Transcribed Date/Time: 03/17/2018 00:43 | |Canoe Inspector Final: FLUENCY | | | | | | [...]
--- OUTSIDE RECORDS SUMMARY | ~2020-05-06 | XMS | Encounter Summary ---
Demographics + + + | Address | [address] | | | [place] [address] | + + + | Home Phone [...] Author + + + | Author | [facility] | + + + | Organization | [facility] | + + + | Address | Unknown | + + + | Phone | Unavailable | + + + Support + + + + + | Name | Relationship | Address | Phone | + + + + + | Neda Santos | ECON | [place] | | | | | [address] | | + + + + + Care Team Providers + +------+ + | Care Edger Tailer Name | Role | Phone | + [...] | | | | Chronic RLQ | Sandhya, | Scan [address] | | | | | pain | Paras Woodall, | The | | | | | Procedures | MD [address] | [place] | | | | | CT ABDOMEN | The | [address] | | | | | AND PELVIS W | [place] [address] | Phone: | | | | | IV CONTRAST | [address] | [phone] | | | | | CO CT | Phone: | | | | | | ABDOMEN&PELV | [phone] | | | | | | IS | Fax: | | | | | | W/CONTRAST | [phone] | | +--------+--------+ + + + + Reason for Visit + + + | Reason | Comments | + + + | Consultation | abdominal wall hernia | + + + Consultation (Routine) +--------+--------+ + + + + | Status | Reason | Specialty | Diagnoses / | Referred By | Referred To | | | | | Procedures | Contact | Contact | +--------+--------+ + + + + | Closed | | Surgery | Diagnoses | Elena | Analy Gen | | | | | Ventral | DO Violeta | Surg Mob | | | | | hernia | [address] | | | | | without | [address] | St [address] | | | | | obstruction | [place], | [place], [place] | | | | | or romeo | [place] | [address] | | | | | | Phone: | Phone: | | | | | | [phone] | [phone] | | | | | | Fax: | Fax: | | | | | | [phone] | [phone] | +--------+--------+ + + + + Encounter Details +--------+---------+ + + + | Date | Type | Department | Care Team | Description | +--------+---------+ + + + | 03/05/ | Office | [facility] | Sandhya, | Chronic RLQ pain | | 2019 | Visit | Surgery Clinic [address] | Paras Woodall MD [address] | (Primary Dx) | | | | [address] | st The | | | | | [place], [place] | [place], [place] | | | | | [address] | [address] | | | | | [phone] | [phone] | | | | | | | [...] + + + | Blood Pressure | 114/74 | 03/05/2019 9:35 AM | | | | | PDT | | + + + + + | Pulse | 67 | 03/05/2019 9:35 AM | | | | | PDT [...] + + + + | Weight | 85 kg (187 lb 8 oz) | 03/05/2019 9:35 AM | | | | | PDT | | + + + + + | Height | - | - | | + + + + + | Body Mass Index | 32.18 | 10/16/2018 12:50 PM | | | | | PST | | + + + + + documented in this encounter Progress Notes Paras Paul MD - 03/05/2019 9:45 AM PDTFormatting of this note might be differe nt from the original. Chief Complaint: Chief Complaint Patient presents with Consultation abdominal wall hernia History of Present Illness: 43-year-old man with a history of open appendectomy as a child presents for evaluation of p ain in his right lower quadrant. He says that he is had for several weeks some nagging pain near the site of his appendectomy. He has not noticed a discrete bulge. The pain sometimes radiates into his right groin. He denies nausea vomiting, or constipation. He denies feve r. He has had a ultrasound of his abdominal wall which did not reveal hernia. Past Medical History Past Medical History: Diagnosis [...] spine surgery 01/22/2012 anterior cervical discectomy C6-C7 [facility] Laminotomy of cervical vertebra with nerve root decompression 01/22/2012 Vasectomy 2009 Colonoscopy with biopsy 11/19/2014 Appendectomy 1998 Interbody placement of biomechanical device (alana-c) 01/22/2012 Egd with biopsy 08/18/2018 Medication List Current Outpatient Medications: atorvastatin 40 mg oral tablet, Take 1 tablet by mouth once daily. Indications: hypercholesterolemia, Disp: 90 tablet, Rfl: 1 gabapentin 300 mg oral capsule, Take 2 capsules by mouth three times daily., Disp: 540 caps ule, Rfl: 1 omeprazole 40 mg oral capsule,delayed release(DR/EC), Take 40 mg by mouth once daily., Disp : , Rfl: tiZANidine 4 mg oral tablet, Take 1 tablet by mouth every six hours as needed. Max: 36 mg / day., Disp: 60 tablet, Rfl: 2 Allergy List Allergies Allergen Reactions Pineapple Anaphylaxis Bromelains Throat Swelling / Closing Ibuprofen Pruritus Naproxen Bleeding Makes kidneys bleed Penicillins Throat Swelling / Closing Family Medical History Family History Problem Relation GI Brother GERD Cancer Brother Pancreatic Other Neurological Father Alzheimer's Disease Colon Cancer Father Cancer Father Obesity Mother Cancer Mother Bladder GI Sister GERD Cancer Sister Pancreatic Social History Social History Socioeconomic History Marital status: Single Spouse name: Not on file Number of children: Not on file Years of education: Not on file Highest education level: Not on file Occupational History Not on file Social Needs Financial resource strain: Not on file Food insecurity: Worry: Not on file Inability: Not on file Transportation needs: Medical: Not on file Non-medical: Not on file Tobacco Use Smoking status: Former Smoker Last attempt to quit: 03/08/2015 Years since quittin.9 Smokeless tobacco: Never Used Substance and Sexual Activity Alcohol use: No Alcohol/week: 0.0 oz Drug use: No Types: Smoke, Inhalation Comment: on occasion to help with pain in back Sexual activity: Not on file Comment: vasectomy Lifestyle Physical activity: Days per week: Not on file Minutes per session: Not on file Stress: Not on file Relationships Social connections: Talks on phone: Not on file Gets together: Not on file Attends sikhism service: Not on file Active member of club or organization: Not on file Attends meetings of clubs or organizations: Not on file Relationship status: Not on file Intimate partner violence: Fear of current or ex partner: Not on file Emotionally abused: Not on file Physically abused: Not on file Forced sexual activity: Not on file Other Topics Concern Not on file Social History Narrative Not on file Immunizations Immunization History Administered Date(s) Administered Influenza, injectable, quadrivalent, preservative free (IIV4) 06/21/2016, 09/12/2017 Influenza, seasonal, injectable, preservative free (IIV3) 10/11/2014 Td (adult), 2 Lf tetanus toxoid, preservative free, adsorbed 09/30/2010 Tdap 12/20/2017 Varicella 07/05/2016, 08/02/2016 Review of Systems Review of Systems Constitutional: Positive for malaise/fatigue. Negative for fever and weight loss. HENT: Negative for congestion. Respiratory: Negative for shortness of breath and wheezing. Cardiovascular: Negative for chest pain. Gastrointestinal: Negative for abdominal pain, blood in stool, constipation, diarrhea, hear tburn, melena, nausea and vomiting. Musculoskeletal: Negative for joint pain. Neurological: Negative for dizziness, weakness and headaches. Endo/Heme/Allergies: Does not bruise/bleed easily. Psychiatric/Behavioral: Negative for depression. The patient is not nervous/anxious. Vitals BP 114/74 (BP Location: Left upper arm, Patient Position: Sitting) | Pulse 67 | Wt 85 kg (187 lb 8 oz) | BMI 32.18 kg/m | BSA 1.96 m Physical Examination Gen- NAD HEENT- GAGE, MMM Resp- CTA B CV- RRR Abd- soft NTND, no definitive bulge at appendectomy site, + small umbilical hernia Groin- No definitive inguinal hernias, bilaterally Assessment/Plan There are no diagnoses linked to this encounter. 43-year-old man with chronic right lower quadrant pain. We will obtain a CT of the abdomen and pelvis to further define his abdominal wall anatomy. He will follow up after this. No follow-ups on file. Spring Woo MA - 03/05/2019 9:45 AM PDT Review of Systems Constitutional: Positive for malaise/fatigue. Negative for fever and weight loss. HENT: Negative for congestion. Respiratory: Negative for shortness of breath and wheezing. Cardiovascular: Negative for chest pain. Gastrointestinal: Negative for abdominal pain, blood in stool, constipation, diarrhea, hear tburn, melena, nausea and vomiting. Musculoskeletal: Negative for joint pain. Neurological: Negative for dizziness, weakness and headaches. Endo/Heme/Allergies: Does not bruise/bleed easily. Psychiatric/Behavioral: Negative for depression. The patient is not nervous/anxious. documented in this enc ounter Plan of Treatment Not on filedocumented as of this encounter Results CT ABDOMEN AND PELVIS W IV CONTRAST (03/11/2019 8:59 AM PDT) + + | Specimen | + + | | + + + + + | Narrative | Performed At | + + + | [address] | [facility] | | [place] [address] | DEPARTMENT OF | | [phone] Name: CHUCK SANTOS Phys: | RADIOLOGY | | PARAS PAUL : 1975 Sex: M | | | CSN: [id number] MR# [id number] Exam Date: | | | 03/11/2019 EXAM: [...] Transcribed Date/Time: | | | 03/11/2019 09:45 Medical Data Entry Clerk: VAL | | + + + + + | Procedure Note | + + | Interface, Radiology Results - 03/11/2019 9:49 AM PDT [address] | | [address] [place] [address] | | Name: CHUCK SANTOS Phys: SANDHYAPARAS Jose C : 1975 Sex: M | | CSN: [id number] MR# [id number] Exam Date: 03/11/2019 EXAM:CT ABDOMEN AND | [...] | | |Transcribed Date/Time: 03/11/2019 09:45 | |Medical Data Entry Clerk: FLUENCY | | | | | | | + + + +---------+ + + | Performing | Address | City/State[facility] | Phone Number | | Organization | | | | + +---------+ + + | [facility] | | | | | RADIOLOGY | | | | + +---------+ + + BASIC METABOLIC SET (NA, K, CL, TCO2, BUN, CR, GLU, CA) (03/06/2019 3:24 PM PDT) + +---------+ + + + | Component | Value | Ref Range | Performed | Pathologist | | | | | At | Signature | + +---------+ + + + | GLUCOSE, | 111 (H) | 70 - 105 mg/dL | [facility] | | | [facility] | | | A MEDICAL | | | (LAB) | | | CENTER | | + +---------+ + + + | BUN, PLASMA | 15 | 6 - 26 mg/dL | [facility] | | | (LAB) | | | A MEDICAL | | | | | | CENTER | | + +---------+ + + + | CREATININE, | 1.1 | 0.9 - 1.3 mg/dL | [facility] | | | PLASMA | | | A MEDICAL | | | | | | CENTER | | + +---------+ + + + | SODIUM, | 139 | 137 - 146 | [facility] | | | PLASMA | | mmol/L | A MEDICAL | | | (LAB) | | | CENTER | | + +---------+ + + + | POTASSIUM, | 4.3 [...] +---------+ + + + | CALCIUM, | 9.4 | 8.5 - 10.8 | [facility] | | | PLASMA | | mg/dL | A MEDICAL | | | (LAB) | | | CENTER | | + +---------+ + + + | BUN/CREATIN | 14 | 6 - 20 | [facility] | [...] + + + | ANION GAP | 9 | 7 - 16 mmol/L | [facility] | | | | | | A MEDICAL | | | | | | CENTER | | + +---------+ + + + | FASTING 8 | No | | [facility] | | | HOURS [...] | + + + + + | [facility] | And | [place], [place] | [phone] | | MEDICAL [facility]ENTER | Streets | [address] | | + + + + + documented in this encounter Visit Diagnoses + + | Diagnosis | + + | Chronic RLQ pain - Primary Abdominal pain, right lower quadrant | + + documented in this encounter"
--- OUTSIDE RECORDS SUMMARY | ~2020-05-06 | XMS | Encounter Summary ---
Demographics + + + | Address | [address] | | | [place] [address] | + + + | Home Phone [...] + + + | Author | [facility] | + + + | Organization | [facility] | + + + | Address | Unknown | + + + | Phone | Unavailable | + + + Support + + + + + | Name | Relationship | Address | Phone | + + + + + | Neda Castañeda | ECON | [place] | | | | | [address] | | + + + + + Care Team Providers + +------+ + | Care Irrigation Engineer Name | Role | Phone | + +------+ + | Nathalie Castillo | PCP | | + +------+ + Encounter Details +--------+ + + + + | Date | Type | Department | Care Team | Description | +--------+ + + + + | 10/11/ | Results | [facility] | Nathalie Castillo, | | | 2014 | Only | Department | TEST ENGINEER NUCLEAR EQUIPMENT [address] | | | | | | [address] | | | | | | [place] | | | | | | [address] | | | | | | [phone] | | | | | | | [...] 5.7 | 4.0 - 12.0 % | [facility] | | | | | | A MEDICAL | | | | | | CENTER | | + + + + + + + + | Specimen | + + | | + + + + + + + | Performing | Address | City/State/Zipcode | Phone Number | | Organization | | | | + + + + + | [facility] | And | [place], [place] | [phone] | | MEDICAL CENTER | Street | [address] | | + + + + + [...] + + + | LDL CHOLEST | SUSTAINABLE AGRICULTURE FACULTY | 0 - 129 MG/DL | [facility] [...] + + | [facility] | [address] | [place] | [phone] | | [facility] | [place] | [address] | | + + + + + documented in this encounter Visit Diagnoses Not on filedocumented in this encounter"
--- OUTSIDE RECORDS SUMMARY | ~2020-05-06 | XMS | Encounter Summary ---
Demographics + + + | Address | [address] | | | [place] [address] | + + + | Home Phone [...] [place] | | | | | [address] | | + + + + + Care Team Providers + +------+ + | Care Hotel Manager Name | Role | Phone | + +------+ + | Miguel A Peraza PA-C | PCP | | + +------+ + Encounter Details +--------+ + + + + | Date | Type | Department | Care Team | Description | +--------+ + + + + | 03/18/ | [facility] | [facility] | Miguel A Peraza PA-C | Hypercholesterolemia | | 2018 | | Medicine [address] | [address] | with LDL greater | | | | [address] [place], | [place], [place] | than 190 mg/dL | | | | [place] [address] | [address] | (Primary Dx) | | | | [phone] | [phone] | | | | | | | [...] + | Diagnosis | + + | Hypercholesterolemia with LDL greater than 190 mg/dL - Primary | + + documented in this encounter"
--- OUTSIDE RECORDS SUMMARY | ~2020-05-06 | XMS | Encounter Summary ---
Demographics + + + | Address | [address] | | | [place] [address] | + + + | Home Phone [...] Author + + + | Author | [facility] | + + + | Organization | [facility] | + + + | Address | Unknown | + + + | Phone | Unavailable | + + + Support + + + + + | Name | Relationship | Address | Phone | + + + + + | Neda Castañeda | ECON | [place] | | | | | [address] | | + + + + + Care Team Providers + +------+ + | Care Cake Stripper Name | Role | Phone | + [...] Description | +--------+--------+ + + + | 01/18/ | Refill | [facility] | Herbert Marie, | Refill Request | | 2016 | | Medicine [address] | [facility] | | | | | [address] [place], | | | | | | [place] [address] | | | | | | [phone] | | | +--------+--------+ + + + [...]
--- OUTSIDE RECORDS SUMMARY | ~2020-05-06 | XMS | Encounter Summary ---
Demographics + + + | Address | [address] | | | [place] [address] | + + + | Home Phone [...] + + + | Author | [facility] | + + + | Organization | [facility] | + + + | Address | Unknown | + + + | Phone | Unavailable | + + + Support + + + + + | Name | Relationship | Address | Phone | + + + + + | Neda Santos | ECON | [place] | | | | | [address] | | + + + + + Care Team Providers + +------+ + | Care Ticket Worker Name | Role | Phone | [...] | | 2015 | | Department at [facility] | [address] | | | | | Hospital [address] | [place], [place] | | | | | St [place], | [address] | | | | | [place] [address] | [phone] | | | | | [phone] | | | | | | | [place], | | | | | | [address] | | | | | | [place], [place] | | | | | | [address] | | | | | | [phone] | | | | | | | [...] your doctor if you can take an bvky-mnh-zavpgxx pain medicine, such as acetaminophen (Tylenol), ibuprofen [...] and Orchitis: Care Instructions", log into your Faction Skis a ccount at [email or web address]. You can enter S360 in the [employer]" search b ox. Not on [employer]? Review the Huniet section of your After Visit Summary for directions on ho w to sign up. [id number] [employer]. Care instructions adapted under license by [facility] [employer]. This care instruction is for use with your licensed healthcar e professional. If you have questions about a medical condition or this instruction, always ask your healthcare professional. [email or web address] disclaims any warranty or liabili ty for your use of this information. Content Version: 11.0.373590; Current as of: August 19, 2015 documented [...] | - [place] | | | | Assay([employer] | | | | | | [...] + + | [facility] | [address] | [place] [address] | | | - [place] | [address] | | | + + + + + US SCROTUM & CONTENTS (07/20/2016 2:32 PM PDT) + + | Specimen | + + | | + + + + + | Narrative | Performed At | + + + | [address] [place] [address] | [facility] | | [place] [address] | DEPARTMENT | | [phone] Name: CHUCK SANTOS Phys: | RADIOLOGY | | B[place] : 1975 Sex: M | | | CSN: [id number] MR# [id number] Exam Date: | | | 07/20/2016 EXAM: [...] Transcribed Date/Time: 07/20/2016 16:06 | | | Accounting Professor: FLUENCY | | + + + + + | Procedure Note | + + | Interface, Radiology Results - 07/20/2016 4:11 PM PDT [address] | | [address] [place] [address] | | Name: MADDYCHUCK Phys: B[place] : 1975 Sex: M | | CSN: [id number] MR# [id number] Exam Date: 07/20/2016 EXAM:SCROTAL ULTRASOUND | | [...] | | |Transcribed Date/Time: 07/20/2016 16:06 | |Accounting Professor: VAL | | | | | | | + + + +---------+ + + | Performing | Address | City/State[facility] | Phone Number | | [...] + + | [facility] | [address] | [place] | [phone] | | MEDICAL CENTER | [facility] | [address] | | + + + + + [...]
--- OUTSIDE RECORDS SUMMARY | ~2020-05-06 | XMS | Encounter Summary ---
Demographics + + + | Address | [address] | | | [place] [address] | + + + | Home Phone [...] [place] | | | | | [address] | | + + + + + Care Team Providers + +------+ + | Care Executive Sous Chef Name | Role | Phone | [...] | pain with | [place], [place] | [address] | | | | | left-sided | [address] | Phone: | | | | | sciatica | Phone: | [phone] | | | | | Procedures | [phone] | | | | | | MRI SPINE | Fax: | | | | | | LUMBAR WO | [phone] | | | | | | CONTRAST [...] Dx); | | | | [address] [place], | [place], [place] | Prediabetes; Chronic | | | | [place] [address] | [address] | left-sided low back | | | | [phone] | [phone] | pain with | | | | [...] CR 1.2 03/09/2017 CR 1.2 03/08/2017 Microalbumin RESUFAST(microalbumin,uralbumin,fpngxb67i,urcreatconc)@ not done Other CAD Risk Factors Smoking [...] CONTRAST; Future Signed, Miguel A Medrano PA-C [facility] Department of Family Medicine Return if symptoms [...] | + + + | [address] [place] [address] | [facility] | | [place], [place] [address] [place] [address] | | [phone] Name: CHUCK SANTOS Phys: | RADIOLOGY | | MIGUEL A MEDRANO : 1975 Sex: M CSN: | | | [id number] MR# [id number] Exam Date: 03/15/2018 | | | EXAM: MRI SPINE LUMBAR WO CONTRAST [id number] CLINICAL HISTORY: | | | 42-year-old male [...] | | | Transcribed Date/Time: 03/17/2018 00:43 Industrial Sales Engineer: VAL | | | | | + + + + + | Procedure Note | + + | Interface, Radiology Results - 03/17/2018 12:48 AM PDT [address] | | [place], [place] [address] | | Name: CHUCK SANTOS Phys: MIGUEL A MEDRANO : 1975 Sex: M CSN: | | [id number] MR# [id number] Exam Date: 03/15/2018 EXAM:MRI SPINE LUMBAR WO | | CONTRAST [id number] CLINICAL HISTORY:42-year-old male with low back pain [...] | | |Transcribed Date/Time: 03/17/2018 00:43 | |Industrial Sales Engineer: VAL | | | | | | [...] | ESTIMATED | 117 | mg/dL | [facility] | | | AVERAGE [...] Diabetic Ranges per DCCT & ADA: | [facility] | | Normal Range: <6% | [facility] | | Good Control: <7% | | | Additional action suggested: >8% Non-Diabetic | | | Ranges: 4-6% Supervisor [employer]'s Glycohemoglobin | | | Diabetic Ranges: Normal Range: | | | 4.0-6.0% Good Control: | | | 6.0-8.0% Poor Control: | | | >8.0% | | + + + + + + + + | Performing | Address | City/State/Zipcode | Phone Number | | Organization | | | | + + + + + | [facility] | [address] | [place], [place] | [phone] | | [facility] | [facility] | [address] | | + + + + + [...] a level 30 mg/dL higher than | [facility] | | that for LDL cholesterol. Cardiac Risk Ratio Interpretation: | [facility] | | Interpretation Cardiac [...] [address] | [place] | [phone] | | [facility] [place] | [address] | | + + + + + documented in this encounter Visit Diagnoses + + | Diagnosis | + + | Mixed hyperlipidemia - Primary | + + | Prediabetes Other abnormal glucose | + + | Chronic left-sided low back pain with left-sided sciatica | + + documented in this encounter
--- OUTSIDE RECORDS SUMMARY | ~2020-05-06 | XMS | Encounter Summary ---
Demographics + + + | Address | [address] | | | [place] [address] | + + + | Home Phone [...] [place] | | | | | [address] | | + + + + + Care Team Providers + +------+ + | Care Air Pollution Specialist Name | Role | Phone | + +------+ + | Iliana Parker DO | PCP | | + +------+ + Encounter Details +--------+ + + + + | Date | Type | Department | Care Team | Description | +--------+ + + + + | 09/03/ | Hospital | Ultrasound at [facility] | Iliana Parker, | | | 2017 | Encounter | Hospital [address] | DO [address] | | | | | [place], | [place] [address] | | | | | [place] [address] | [phone] | | | | | [phone] | | | +--------+ + + + [...] + + | US SCROTUM & | Routin | 09/03/2018 | Testicular pain | Results for this | | CONTENTS | e | 1:54 PM | | procedure are in the | | | | PST | | results section. | + +--------+ + + + | ORDERS OTHER | | 09/03/2018 | | Results for this | | | | 12:00 AM | | procedure are in the | | | | PST | | results section. | + +--------+ + + + documented in this encounter Results US SCROTUM & CONTENTS (09/03/2018 1:54 PM PST) + + | Specimen | + + | | + + + + + | Narrative | Performed At | + + + | [address] [place] [address] | [facility] | | [place], [place] [address] [place] [address] | | [phone] Name: CHUCK SANTOS Phys: | RADIOLOGY | | ILIANA JAVED : 1975 Sex: M | | | CSN: [id number] MR# [id number] Exam Date: | | | 09/03/2018 EXAM: [...] Transcribed | | | Date/Time: 09/03/2018 18:00 Watchmaking Teacher: VAL | | + + + + + | Procedure Note | + + | Interface, Radiology Results - 09/03/2018 6:05 PM PST [address] | | [address] [place] [address] | | Name: CHUCK SANTOS Phys: LEATHACAMERONRADHAILIANA M : 1975 Sex: M | | CSN: [id number] MR# [id number] Exam Date: 09/03/2018 EXAM:SCROTAL ULTRASOUND | | [...] | | |Transcribed Date/Time: 09/03/2018 18:00 | |Watchmaking Teacher: FLUENCY | | | | | | | + + + +---------+ + + | Performing | Address | City/State/Zipcode | Phone Number | | Organization | | | | + +---------+ + + | [facility] DEPARTMENT OF | | | | | RADIOLOGY | | | | + +---------+ + + ORDERS OTHER (09/03/2018 12:00 AM PST) + + + | Narrative | Performed At | + + + | | | + + + documented in this encounter Visit Diagnoses + + | Diagnosis | + + | Testicular pain Unspecified disorder of male genital organs | + + documented in this encounter"
--- OUTSIDE RECORDS SUMMARY | ~2020-05-06 | XMS | Encounter Summary ---
Demographics + + + | Address | [address] [place]ERY | | | [place] [address] | + + + | Home Phone [...] [place] | | | | | [address] | | + + + + + Care Team Providers + +------+ + | Care Travel Attendants Name | Role | Phone | + +------+ + | Herbert Marie MD,MPH | PCP | Unavailable | + +------+ + Reason for Visit + + + | Reason | Comments | + + + | Abdominal pain | Left side | + + + Encounter Details +--------+ + + + + | Date | Type | Department | Care Team | Description | +--------+ + + + + | 05/25/ | Emergency | Emergency | Roni Chow, | | | 2015 - | | Department at [facility] | [address] | | | | Hospital [address] | [place] | | | 05/26/ | | [place], | [address] | | | 2015 | | [place] [address] | [phone] | | | | | [phone] | | | +--------+ + + + [...] + + + | Blood Pressure | 145/108 | 05/25/2016 11:19 PM | | | | | PDT | | + + + + + | Pulse | 85 | 05/25/2016 11:19 PM | | | | | PDT | | + + + + + | Temperature | 37.2 C (99 F) | 05/25/2016 11:19 PM | | | | | PDT | | + + + + + | Respiratory Rate | 20 | 05/25/2016 11:19 PM | | | | | PDT | | + + + + + | Oxygen Saturation | 97% | 05/25/2016 11:19 PM | | | | | PDT [...] documented in this encounter Discharge Instructions Instructions Roni Chow MD - 05/25/2016 Kidney Stone: Care Instructions Your Care Instructions Kidney stones are formed when salts, minerals, and other substances normally found in the u rine clump together. They can be as small as grains of sand or, rarely, as large as golf bal ls. While the stone is traveling through the ureter, which is the tube that carries urine from the kidney to the bladder, you will probably feel pain. The pain may be mild or very severe. You may also have some blood in your urine. As soon as the stone reaches the bladder, any i ntense pain should go away. If a stone is too large to pass on its own, you may need a medical procedure to help you pa ss the stone. The doctor has checked you carefully, but [...] can you care for yourself at home? Drink plenty of fluids, enough so that your urine is light yellow or clear like water. I f you have kidney, heart, or liver disease and have to limit fluids, talk with your doctor b efore you increase the amount of fluids you drink. Take pain medicines exactly as directed. Call your doctor if you think you are having a problem with your medicine. If the doctor gave you a prescription medicine for pain, take it as prescribed. If you are not taking a prescription pain medicine, ask your doctor if you can take an o vwd-isg-mczflfr medicine. Read and follow all instructions on the label. Your doctor may ask you to strain your urine so that you can collect your kidney stone w hen it passes. You can use a kitchen strainer or a tea strainer to catch the stone. Store it in a plastic bag until you see your doctor again. Preventing future kidney stones Some changes in your diet may help prevent kidney stones. Depending on the cause of your st ones, your doctor may recommend that you: Drink plenty of fluids, enough so that your urine is light yellow or clear like water. I f you have kidney, heart, or liver disease and have to limit fluids, talk with your doctor b efore you increase the amount of fluids you drink. Limit coffee, tea, and alcohol. Also avoid grapefruit juice. Do not take more than the recommended daily dose of vitamins C and D. Avoid antacids such as Gaviscon, Maalox, Mylanta, or Tums. Limit the amount of salt (sodium) in your diet. Eat a balanced diet that is not too high in protein. Limit foods that are high in a substance called oxalate, which can cause kidney stones. These foods include dark green vegetables, rhubarb, chocolate, wheat bran, nuts, cranberries , and beans. When should you call for help? Call your doctor now or seek immediate medical care if: You cannot keep down fluids. Your pain gets worse. You have a fever or chills. You have new or worse pain in your back just below your rib cage (the flank area). You have new or more blood in your urine. Watch closely for changes in your health, and be sure to contact your doctor if: You do not get better as expected. Where can you learn more? To learn more about "Kidney Stone: Care Instructions", log into your [employer] account at [email or web address]. You can enter X633 in the [employer]" search box. Not on [employer]? Review the Triondt section of your After Visit Summary for directions on booker nani to sign up. [id number] [email or web address]. Care instructions adapted under license by [facility]. This care instruction is for use with your licensed healthcar e professional. If you have questions about a medical condition or this instruction, always ask your healthcare professional. [employer] disclaims any warranty or liabili ty for your use of this information. Content Version: 10.9.338835; Current as of: August 19, 2015 documented in this encounter Medications at Time of Discharge + + + +---------+ + + | Medication | Sig | Dispensed | Refills | Start | End Date | | | | | | Date | | + + + +---------+ + + | tamsulosin | Take 1 capsule by | 14 | 0 | 05/25/20 | | | (FLOMAX) 0.4 mg oral | mouth once daily for | capsule | | 16 | 6 | | capsule,extended | 14 days. | | | | | | release 24hr | | | | | | + [...] | UA, DIPSTICK W/ | Urgent | 05/25/2016 | | Results for this | | REFLEX | | 11:31 PM | | procedure are in the | | | | PDT | | results section. | + +--------+ + + + | URINE, MICROSCOPIC | Urgent | 05/25/2016 | | Results for this | | EXAM | | 11:31 PM | | procedure are in the | | | | PDT | | results section. | + +--------+ + + + | X-RAY ABDOMEN 1 VIEW | Urgent | 05/25/2016 | | Results for this | | | | 10:54 PM | | procedure are in the | | | | PDT | | results section. | + +--------+ + + + | RAINBOW HOLD TUBE - | Urgent | 05/25/2016 | | | | RED TOP | | 10:40 PM | | | | | | PDT | | | + +--------+ + + + | CBC W/DIFF, REFLEX | Urgent | 05/25/2016 | | Results for this | | | | 10:40 PM | | procedure are in the | | | | PDT | | results section. | + +--------+ + + + | CBC AND AUTO DIFF | Urgent | 05/25/2016 | | Results for this | | | | 10:40 PM | | procedure are in the | | | | PDT | | results section. | + +--------+ + + + | RAINBOW HOLD TUBE - | Urgent | 05/25/2016 | | | | BLUE TOP | | 10:40 PM | | | | | | PDT | | | + +--------+ + + + | BASIC METABOLIC SET | Urgent | 05/25/2016 | | Results for this | | (NA, K, CL, TCO2, | | 10:40 PM | | procedure are in the | | BUN, CR, GLU, CA) | | PDT | | results section. | + +--------+ + + + documented in this encounter Results URINE, MICROSCOPIC EXAM (05/25/2016 11:31 PM PDT) + + + + + + | Component | Value | Ref Range | Performed | Pathologist | | | | | At | Signature | + + + + + + | RED CELLS | 50-100 (A) | Neg, 0-3 | [facility] | | | | | | A MEDICAL | | | | | | CENTER | | + + + + + + | WHITE CELLS | 0-2 | Neg, 0-2, 3-5 | [facility] | | | | | | A MEDICAL | | | | | | CENTER | | + + + + + + | BACTERIA | 1+ (A) | Negative, Trace | [facility] | | | | | /hpf | A MEDICAL | | | | | | CENTER | | + + + + + + | SQUAMOUS | Few | None /hpf /hpf | [facility] | | | EPITHELIAL | | | A MEDICAL | | | | | | CENTER | | + + + + + + | MUCOUS | Moderate (A) | None /hpf | [facility] | | | | | | A MEDICAL | | | | | | CENTER | | + + + + + + + + | Specimen | + + | Urine - Urine | | (substance) | + + + + + | Narrative | Performed At | + + + | Few hyaline casts (0-3 per lpf). | [facility] | | | [facility] [place] | + + + + + + + + | Performing | Address | City/State/Zipcode | Phone Number | | Organization | | | | + + + + + | [facility] | And | [place] | [phone] | | MEDICAL CENTER | Streets | [address] | | + + + + + NEREIDA MORILLO (05/25/2016 11:31 PM PDT) + + + + + + | Component | Value | Ref Range | Performed | Pathologist | | | | | At | Signature | + + + + + + | COLOR(UR) | Light Red | Colorless, | [facility] | | | | | Straw, Yellow, | A MEDICAL | | | | | Light Yellow, | CENTER | | | | | Dark Yellow, | | | | | | Light Red | | | + + + + + + | APPEARANCE | Sl.Cloudy (A) | Clear | [facility] | | | | | | A MEDICAL | | | | | | CENTER | | + + + + + + | PH (URINE) | 5.5 | 5.0 - 8.5 | [facility] | | | | | | A MEDICAL | | | | | | CENTER | | + + + + + + | PROTEIN, | 1+ (A) | Negative, Trace | [facility] | | [...] + + + + | SPECIFIC | 1.020 | 1.005 - 1.030 | [facility] | [...] + + + + | BLOOD | 3+ (A) | Negative | [facility] | | | [...] UROBILINOGE | Negative | Negative, 1.0 | [facility] | | | N | | mg/dL | A MEDICAL | | | | | | CENTER | | + + + + + + | SOURCE | Clean Catch | | [facility] | | | (URINALYSIS | | | [...] | + + + + + | [facility] | And | [place] | [phone] | | [facility] | Streets | [address] | | + + + + + X-RAY ABDOMEN 1 VIEW (05/25/2016 10:54 PM PDT) + + | Specimen | + + | | + + + + + | Narrative | Performed At | + + + | [address] | [facility] | | [place] [address] | DEPARTMENT OF | | [phone] Name: CHUCK SANTOS Phys: | RADIOLOGY | | RONI CHOW : 1975 Sex: M | | | CSN: [id number] MR# [id number] Exam Date: | | | 05/25/2016 EXAM: X-RAY ABDOMEN 1 VIEW CLINICAL HISTORY: | | | Abdominal pain, left-sided kidney stone COMPARISON: Plain film | | | examination lumbar spine 04/19/2016 FINDINGS: Two frontal views | | | of the abdomen were performed. A 3.5 mm faint calcification | | | projects over the expected location of the upper pole of the left | | | kidney. There may be an adjacent approximately 1.8 mm | | | calcification. A faint 2.8 mm density projects over the left lower | | | abdomen, just lateral to the transverse process of L3. This may | | | represent a ureteral stone. Clinical correlation is recommended. | | | A 3.4 mm calcification projects over the right kidney and is most | | | consistent with a stone. The bowel gas pattern is nonobstructive. | | | No abnormal abdominal mass is seen. Phleboliths are noted in the | | | right pelvis. IMPRESSION: 1. Two adjacent faint calcific | | | densities project over left kidney. 2. 2.8 mm calcific density in the | | | left abdomen, at the level of the transverse process of L3, | | | suspicious for a left ureteral stone. 3. 3.4 mm calcification in the | | | right kidney. 4. Nonobstructive bowel gas pattern. REPORT | | | SIGNED IN OTHER VENDOR SYSTEM 05/26/2016 Reported by: Alison Cosby | | MD Sole Electronically signed by: Alison Whipple MD | | | Transcribed Date/Time: 05/26/2016 11:14 Industrial Sociologist: VAL | | | | | + + + + + | Procedure Note | + + | Interface, Radiology Results - 05/26/2016 11:18 AM PDT [address] | | [address] [place] [id number] | | Name: CHUCK SANTOS Phys: RONI CHOW : 1975 Sex: M | | CSN: [id number] MR# [id number] Exam Date: 05/25/2016 EXAM:X-RAY ABDOMEN 1 VIEW | | CLINICAL HISTORY:Abdominal pain, left-sided kidney stone COMPARISON:Plain film | | examination lumbar spine 04/19/2016 FINDINGS:Two frontal views of the abdomen were | | performed. A 3.5 mm faintcalcification projects over the expected location of the upper | | poleof the left kidney. There may be an adjacent approximately 1.8 mmcalcification. A | | faint 2.8 mm density projects over the left lower abdomen, justlateral to the transverse | | process of L3. This may represent aureteral stone. Clinical correlation is | | recommended. A 3.4 mmcalcification projects over the right kidney and is most | | consistentwith a stone. The bowel gas pattern is nonobstructive. No abnormal abdominal | | massis seen. Phleboliths are noted in the right pelvis. IMPRESSION:1. Two adjacent | | faint calcific densities project over left kidney.2. 2.8 mm calcific density in the left | | abdomen, at the level of thetransverse process of L3, suspicious for a left ureteral | | stone.3. 3.4 mm calcification in the right kidney.4. Nonobstructive bowel gas pattern. | | REPORT SIGNED IN OTHER VENDOR SYSTEM 05/26/2016 Reported by: Alison Whipple MD | | Electronically signed by: Alison Whipple MD Transcribed Date/Time: 05/26/2016 | | 11:14Transcriptionist: VAL | |Plain film examination lumbar spine 04/19/2016 | | | |FINDINGS: | |Two frontal views of the abdomen were performed. A 3.5 mm faint | |calcification projects over the expected location of the upper pole | |of the left kidney. There may be an adjacent approximately 1.8 mm | |calcification. | | | |A faint 2.8 mm density projects over the left lower abdomen, just | |lateral to the transverse process of L3. This may represent a | |ureteral stone. Clinical correlation is recommended. A 3.4 mm | |calcification projects over the right kidney and is most consistent | |with a stone. | | | |The bowel gas pattern is nonobstructive. No abnormal abdominal mass | |is seen. Phleboliths are noted in the right pelvis. | | | |IMPRESSION: | |1. Two adjacent faint calcific densities project over left kidney. | |2. 2.8 mm calcific density in the left abdomen, at the level of the | |transverse process of L3, suspicious for a left ureteral stone. | |3. 3.4 mm calcification in the right kidney. | |4. Nonobstructive bowel gas pattern. | | | | | | REPORT SIGNED IN OTHER VENDOR SYSTEM 05/26/2016 | |Reported by: Alison Whipple MD | | | |Electronically signed by: Alison Whipple MD | | | |Transcribed Date/Time: 05/26/2016 11:14 | |Industrial Sociologist: FLUENCY | | | | | | | + + + +---------+ + + | Performing | Address | City[facility]State[facility] | Phone Number | | Organization | | | | + +---------+ + + | [facility] DEPARTMENT OF | | | | | RADIOLOGY | | | | + +---------+ + + RAINBOW HOLD TUBE - RED TOP (05/25/2016 10:40 PM PDT) + + | Specimen | + + | Blood - Blood | | (substance) | + + + + + + + | Performing | Address | City/State/Zipcode | Phone Number | | Organization | | | | + + + + + | [facility] | [address] | [place] | [phone] | | [facility] [place] | [address] | [address] | | + + + + + RAINBOW HOLD TUBE - BLUE TOP (05/25/2016 10:40 PM PDT) + + | Specimen | + + | Blood - Blood | | (substance) | + + + + + + + | Performing | Address | City/State/Zipcode | Phone Number | | Organization | | | | + + + + + | [facility] | [address] | [place], [place] | [phone] | | [facility] | [facility] | [address] | | + + + + + CBC AND AUTO DIFF (05/25/2016 10:40 PM PDT) + + + + + + | Component | Value | Ref Range | Performed | Pathologist | | | | | At | Signature | + + + + + + | WBC COUNT | 8.1 | 4.4 - 11.0 K/cu | [facility] | | | | | mm | A MEDICAL | | | | | | CENTER | | + + + + + + | RED CELL | 5.50 | 4.50 - 6.00 | [facility] | | | COUNT | | M/cu mm | A MEDICAL | | | | | | CENTER | | + + + + + + | HEMOGLOBIN | 15.7 | 13.5 - 17.5 | [facility] | | | | | g/dL | A MEDICAL | | | | | | CENTER | | + + + + + + | HEMATOCRIT | 47.7 | 41.0 - 53.0 % | [facility] | | | | | | A MEDICAL | | | | | | CENTER | | + + + + + + | MCV | 86.7 | 80.0 - 96.0 fL | [facility] | | | | | | A MEDICAL | | | | | | CENTER | | + + + + + + | MCH | 28.5 | 28.0 - 34.7 pg | [facility] | | | | | | A MEDICAL | | | | | | CENTER | | + + + + + + | MCHC | 32.9 (L) | 33.0 - 35.5 | [facility] | | | | | g/dL | A MEDICAL | | | | | | CENTER | | + + + + + + | RDW | 14.0 | 11.5 - 15.0 % | [facility] | | | | | | A MEDICAL | | | | | | CENTER | | + + + + + + | PLATELET | 214 | 150 - 400 K/cu | [facility] | | | COUNT | | mm | A MEDICAL | | | | | | CENTER | | + + + + + + | MPV | 8.5 (L) | 9.7 - 12.3 fL | [facility] | | | | | | A MEDICAL | | | | | | CENTER | | + + + + + + | NEUTROPHIL | 52.4 | 50.0 - 70.0 % | [facility] | | | % | | | A MEDICAL | | | | | | CENTER | | + + + + + + | LYMPHOCYTE | 37.5 | 18.0 - 42.0 % | [facility] | | | % | | | A MEDICAL | | | | | | CENTER | | + + + + + + | MONOCYTE % | 6.6 | 3.5 - 9.0 % | [facility] | | | | | | A MEDICAL | | | | | | CENTER | | + + + + + + | EOS % | 2.8 | 1.0 - 3.0 % | [facility] | | | | | | A MEDICAL | | | | | | CENTER | | + + + + + + | BASO % | 0.7 | 0.0 - 2.0 % | [facility] | | | | | | A MEDICAL | | | | | | CENTER | | + + + + + + | NEUTROPHIL | 4.20 | 1.80 - 7.70 | [facility] | | | # | | K/cu mm | A MEDICAL | | | | | | CENTER | | + + + + + + | LYMPHOCYTE | 3.00 | 1.00 - 4.80 | [facility] | | | # | | K/cu mm | A MEDICAL | | | | | | CENTER | | + + + + + + | MONOCYTE # | 0.50 | 0.10 - 0.90 | [facility] | | | | | K/cu mm | A MEDICAL | | | | | | CENTER | | + + + + + + | EOS # | 0.20 | 0.00 - 0.50 | [facility] | | | | | K/cu mm | A MEDICAL | | | | | | CENTER | | + + + + + + | BASO # | 0.10 | 0.00 - 0.10 | [facility] | [...] | [facility] | [address] | [place], [place] | [phone] | | MEDICAL CENTER | Streets | [address] | | + + + + + BASIC METABOLIC SET (NA, K, CL, TCO2, BUN, CR, GLU, CA) (05/25/2016 10:40 PM PDT) + +---------+ + + + | Component | Value | Ref Range | Performed | Pathologist | | | | | At | Signature | + +---------+ + + + | GLUCOSE, | 107 (H) | 70 - 105 mg/dL | [facility] | | | PLASMA | | | A MEDICAL | | | (LAB) | | | CENTER | | + +---------+ + + + | BUN, PLASMA | 13 | 6 - 26 mg/dL | [facility] | | | (LAB) | | | A MEDICAL | | | | | | CENTER | | + +---------+ + + + | CREATININE, | 1.4 (H) | 0.9 - 1.3 mg/dL | [facility] [...] +---------+ + + + | POTASSIUM, | 3.8 | 3.4 - 5.3 | [facility] | | | PLASMA | | mmol/L | A MEDICAL | | | (LAB) | | | CENTER | | + +---------+ + + + | CHLORIDE, | 100 | 96 - 106 mmol/L | [facility] [...] +---------+ + + + | CALCIUM, | 9.5 | 8.5 - 10.8 | [facility] | | | PLASMA | | mg/dL | A MEDICAL | | | (LAB) | | | CENTER | | + +---------+ + + + | BUN/CREATIN | 9 | 6 - 20 | [facility] | | | INE RATIO | | | A MEDICAL | | | | | | CENTER | | + +---------+ + + + | EGFR | >60 | >60 mL/min | [facility] | | | - | | | A MEDICAL | | | DUTCH | | | CENTER | | + +---------+ + + + | EGFR NON | 57 (L) | >60 mL/min | [facility] | | | -ALIX | | | A MEDICAL | | | RICAN | | | CENTER | | + +---------+ + + + | ANION GAP | 16 | 12 - 20 mmol/L | [facility] | | | | | | [...] + + | [facility] | And | [place], [place] | [phone] | | MEDICAL CENTER | Streets | [address] | | + + + + + documented in this encounter Visit Diagnoses + + | Diagnosis | + + | Renal colic - Primary | + + documented in this encounter Administered Medications + +---------+ +--------+------+------+ | Medication Order | MAR | Action | Dose | Rate | Site | | | Action | Date | | | | + +---------+ +--------+------+------+ | HYDROmorphone (DILAUDID) | IV Push | 05/25/20 | 0.5 mg | | | | injection 0.5 mg 0.5 mg, | | 16 10:43 | | | | | intravenous, EVERY 20 MINUTES, 6 | | PM PDT | | | | | doses, First dose on Sat05/25/16 | | | | | | | at 2315, Last dose on 05/26/16 | | | | | | | at 0055 | | | | | | + +---------+ +--------+------+------+ +---+---+ | | | +---+---+ + +---------+ +--------+---+---+ | HYDROmorphone (DILAUDID) | IV Push | 05/25/20 | 0.5 mg | | | | injection 0.5 mg 0.5 mg, | | 16 11:24 | | | | | intravenous, EVERY 2 HOURS | | PM PDT | | | | | NEEDED, Starting 05/25/16 at | | | | | | | 2300, Until 05/26/16 at 0615, | | | | | | | prn pain | | | | | | + +---------+ +--------+---+---+ +---+---+ | | | +---+---+ + +---------+ +-------+---+---+ | ketorolac (TORADOL) injection | IV Push | 05/25/20 | 30 mg | | | | 30 mg 30 mg, intravenous, ONCE, | | 16 11:51 | | | | | 1 dose, 05/26/16 at 0030 | | PM PDT | | | | + +---------+ +-------+---+---+ + +---+ | | | + +---+ | ketorolac (TORADOL) injection | | | 1 dose, Starting Sat05/25/16 at | | | 2349, Until Sat05/25/16 at 2351 | | + +---+ | | | + +---+ + +---------+ + +---+---+ | NaCl 0.9 % solution 1,000 mL, | New Bag | 05/25/20 | 1,000 mL | | | | intravenous, ONCE, 1 dose, Sat | | 16 10:43 | | | | | 05/25/16 at 2315 | | PM PDT | | | | + +---------+ + +---+---+ +---+---+ | | | +---+---+ + +---------+ +------+---+---+ | ondansetron (ZOFRAN) injection | IV Push | 05/25/20 | 4 mg | | | | 4 mg 4 mg, intravenous, ONCE, 1 | | 16 10:43 | | | | | dose, 05/25/16 at 2315 | | PM PDT | | | | + +---------+ +------+---+---+ +---+---+ | | | +---+---+ documented in this encounter
--- OUTSIDE RECORDS SUMMARY | ~2020-05-06 | XMS | Encounter Summary ---
Demographics + + + | Address | [address] | | | [place] [address] | + + + | Home Phone [...] + + + + + | [address] | E[address] | [place] | | | | | [address] | | + + + + + Care Team Providers + +------+ + | Care Mixed Livestock Farm Worker Name | Role | Phone | [...] | | | | | | [place] [address] | | | | | | [phone] | | | +--------+--------+ + + + [...]
--- OUTSIDE RECORDS SUMMARY | ~2020-05-06 | XMS | Encounter Summary ---
Demographics + + + | Address | [address] | | | [place] [address] | + + + | Home Phone [...] [place] | | | | | [address] | | + + + + + Care Team Providers + +------+ + | Care Certified Phlebotomist Name | Role | Phone | + [...] mg) | | | | [address] [place], | [place], [place] | | | | | [place] [address] | [address] | | | | | [phone] | [phone] | | | | | | | [...]
--- OUTSIDE RECORDS SUMMARY | ~2020-05-06 | XMS | Encounter Summary ---
Demographics + + + | Address | [address] [place] | | | [place] [address] | + + + | Home Phone [...] [place] | | | | | [address] | | + + + + + Care Team Providers + +------+ + | Care Personal Financial Counselor Name | Role | Phone | + +------+ + | Violeta Parker DO | PCP | | + +------+ + Encounter Details +--------+ + + + + | Date | Type | Department | Care Team | Description | +--------+ + + + + | 03/05/ | Procedure | Diagnostic Imaging | | | | 2019 | Pass | at [facility] | | | | | | [address] | | | | | | [place] | | | | | | [address] | | | | | | [phone] | | | +--------+ + + + [...]
--- OUTSIDE RECORDS SUMMARY | ~2020-05-06 | XMS | Encounter Summary ---
Demographics + + + | Address | [address] [place] | | | [place] [address] | + + + | Home Phone [...] [place] | | | | | [address] | | + + + + + Care Team Providers + +------+ + | Care Director Of Elementary Education Name | Role | Phone | + +------+ + | Violeta Parker DO | PCP | | + +------+ + Encounter Details +--------+ + + + + | Date | Type | Department | Care Team | Description | +--------+ + + + + | 12/15/ | Inside | [facility] | Violeta Parker, | | | 2019 | Referral | [facility] [address] | DO [address] | | | | Order | [address] | [place] [address] | | | | | [place] | [phone] | | | | | [address] | | | +--------+ + + + [...] + | DDD (degenerative disc disease), cervical - Primary Degeneration of cervical | | intervertebral disc | + + | Chronic left shoulder pain Pain in joint, shoulder region | + + documented in this encounter"
--- OUTSIDE RECORDS SUMMARY | ~2020-05-06 | XMS | Encounter Summary ---
Demographics + + + | Address | [address] [place] | | | [place] [address] | + + + | Home Phone [...] + + + | Author | [facility] | + + + | Organization | [facility] | + + + | Address | Unknown | + + + | Phone | Unavailable | + + + Support + + + + + | Name | Relationship | Address | Phone | + + + + + | Neda Castañeda | ECON | [place] | | | | | [address] | | + + + + + Care Team Providers + +------+ + | Care Predatory Animal Exterminator Name | Role | Phone | + +------+ + | Herbert Marie MD,MPH | PCP | Unavailable | + +------+ + Reason for Visit + + + | Reason | Comments | + + + | Diarrhea | | + + + | Vomiting | | + + + Encounter Details +--------+ + + + + | Date | Type | Department | Care Team | Description | +--------+ + + + + | 11/14/ | Emergency | Emergency | Mendez Magana, | | | 2015 | | Department at [facility] | [address] | | | | Hospital [address] | [place], [place] | | | | | [place], | [address] | | | | | [place] [address] | [phone] | | | | | [phone] | | | +--------+ + + + [...] + + + | Blood Pressure | 142/97 | 11/14/2015 7:49 PM | | | | | PST | | + + + + + | Pulse | 74 | 11/14/2015 7:49 PM | | | | | PST | | + + + + + | Temperature | 37 C (98.6 F) | 11/14/2015 7:49 PM | | | | | PST | | + + + + + | Respiratory Rate | 18 | 11/14/2015 7:49 PM | | | | | PST | | + + + + + | Oxygen Saturation | 100% | 11/14/2015 7:49 PM | | | | | PST [...] documented in this encounter Discharge Instructions Instructions Mendez Magana MD - 11/14/2015Formatting of this note might be different fro m the original. Clear liquid diet for 12-24 hours, then advance to bland diet as tolerated (bananas, rice, applesauce, toast, crackers). Drink small sips at a time. Use nausea medicine as needed. Return to ED for increasing pain, persistent vomiting, unable to tolerate oral intake, no ur ine output. Gastroenteritis: Care Instructions Your Care Instructions Gastroenteritis is an illness that may cause nausea, vomiting, and diarrhea. It is sometime s called "stomach flu." It can be caused by bacteria or a virus. You will probably begin to feel better in 1 to 2 days. In the meantime, get plenty of rest and make sure you do not become dehydrated. Dehydration occurs when your body loses too much fluid. Follow-up care is a avery part of your treatment and safety. Be sure to make and go to all ap pointments, and call your doctor if you are having problems. It s also a good idea to know your test results and keep a list of the medicines you take. How can you care for yourself at home? If your doctor prescribed antibiotics, take them as directed. Do not stop taking them ju st because you feel better. You need to take the full course of antibiotics. Drink plenty of fluids to prevent dehydration, enough so that your urine is light yellow or clear like water. Choose water and other caffeine-free clear liquids until you feel bett er. If you have kidney, heart, or liver disease and have to limit fluids, talk with your doc tor before you increase your fluid intake. Drink fluids slowly, in frequent, small amounts, because drinking too much too fast can cause vomiting. Begin eating mild foods, such as dry toast, yogurt, applesauce, bananas, and rice. Avoid spicy, hot, or high-fat foods, and do not drink alcohol or caffeine for a day or two. Do no t drink milk or eat ice cream until you are feeling better. How to prevent gastroenteritis Keep hot foods hot and cold foods cold. Do not eat meats, dressings, salads, or other foods that have been kept at room temperat ure for more than 2 hours. Use a thermometer to check your refrigerator. It should be between 34F and 40F. Defrost meats in the refrigerator or microwave, not on the kitchen counter. Keep your hands and your kitchen clean. Wash your hands, cutting boards, and countertops with hot soapy water frequently. Cook meat until it is well done. Do not eat raw eggs or uncooked sauces made with raw eggs. Do not take chances. If food looks or tastes spoiled, throw it out. When should you call for help? Call 911 anytime you think you may need emergency care. For example, call if: You vomit blood or what looks like coffee grounds. You passed out (lost consciousness). You pass maroon or very bloody stools. Call your doctor now or seek immediate medical care if: You have severe belly pain. You have signs of needing more fluids. You have sunken eyes, a dry mouth, and pass only a little dark urine. You feel like you are going to faint. You have increased belly pain that does not go away in 1 to 2 days. You have new or increased nausea, or you are vomiting. You have a new or higher fever. Your stools are black and tarlike or have streaks of blood. Watch closely for changes in your health, and be sure to contact your doctor if: You are dizzy or lightheaded. You urinate less than usual, or your urine is dark yellow or brown. You do not feel better with each day that goes by. Where can you learn more? To learn more about "Gastroenteritis: Care Instructions", log into your BranchOut account at [email or web address]. You can enter N142 in the Compass-EOS" search box. Not on BranchOut? Review the MyChart section of your After Visit Summary for directions on ho w to sign up. [phone] what3words. Care instructions adapted under license by [facility] [employer]. This care instruction is for use with your licensed healthcar e professional. If you have questions about a medical condition or this instruction, always ask your healthcare professional. what3words disclaims any warranty or liabili ty for your use of this information. Content Version: 10.7.427608; Current as of: February 18, 2015 Nausea and Vomiting: Care Instructions Your Care Instructions When you are nauseated, you may feel weak and sweaty and notice a lot of saliva in your fantasma th. Nausea often leads to vomiting. Most of the time you do not need to worry about nausea a nd vomiting, but they can be signs of other illnesses. Two common causes of nausea and vomiting are stomach flu and food poisoning. Nausea and vom iting from viral stomach flu will usually start to improve within 24 hours. Nausea and vomit ing from food poisoning may last from 12 to 48 hours. The doctor has checked you carefully, but [...] can you care for yourself at home? To prevent dehydration, drink plenty of fluids, enough so that your urine is light yello w or clear like water. Choose water and other caffeine-free clear liquids until you feel bet ter. If you have kidney, heart, or liver disease and have to limit fluids, talk with your do ctor before you increase the amount of fluids you drink. Rest in bed until you feel better. When you are able to eat, try clear soups, mild foods, and liquids until all symptoms ar e gone for 12 to 48 hours. Other good choices include dry toast, crackers, cooked cereal, an d gelatin dessert, such as Jell-O. When should you call for help? Call 911 anytime you think you may need emergency care. For example, call if: You passed out (lost consciousness). Call your doctor now or seek immediate medical care if: You have symptoms of dehydration, such as: Dry eyes and a dry mouth. Passing only a little dark urine. Feeling thirstier than usual. You have new or worsening belly pain. You have a new or higher fever. You vomit blood or what looks like coffee grounds. Watch closely for changes in your health, and be sure to contact your doctor if: You have ongoing nausea and vomiting. Your vomiting is getting worse. Your vomiting lasts longer than 2 days. You are not getting better as expected. Where can you learn more? To learn more about "Nausea and Vomiting: Care Instructions", log into your BranchOut account at [email or web address]. You can enter H591 in the AnyPresence Library" search box. Not on BranchOut? Review the Kin Communityt section of your After Visit Summary for directions on booker cardoza to sign up. [phone] what3words. Care instructions adapted under license by [facility]. This care instruction is for use with your licensed healthcar e professional. If you have questions about a medical condition or this instruction, always ask your healthcare professional. what3words disclaims any warranty or liabili ty for your use of this information. Content Version: 10.7.433835; Current as of: February 18, 2015 AttachmentsThe following attachments cannot be sent through Care Everywhere.CLEAR LIQUID DI ET: GENERAL INFO (ERITREAN)documented in this encounter Medications at Time of Discharge + + + +---------+ + + | Medication | Sig | Dispensed | Refills | Start | End Date | | | | | | Date | | + + + +---------+ + + | | Take 1 each by mouth | 1 kit | 0 | 11/14/19 | | | hydrocodone-acetamin | once for 1 dose. | | | 16 | 6 | | ophen 5-325 mg oral | | | | | | | tablet tablet | | | | | | + + + +---------+ + + | ondansetaron 4 mg | Take 1 each by mouth | 1 kit | 0 | 11/14/19 | | | oral tablet tablet | once for 1 dose. | | | 16 | 6 | + + + +---------+ + + documented as of this encounter Plan of Treatment Not on filedocumented as of this encounter Procedures + +--------+ + + + | Procedure Name | Priori | Date/Time | Associated Diagnosis | Comments | | | ty | | | | + +--------+ + + + | CBC W/DIFF, REFLEX | Urgent | 11/14/2015 | | Results for this | | | | 5:35 PM | | procedure are in the | | | | PST | | results section. | + +--------+ + + + | CBC AND AUTO DIFF | Urgent | 11/14/2015 | | Results for this | | | | 5:35 PM | | procedure are in the | | | | PST | | results section. | + +--------+ + + + | BASIC METABOLIC SET | Urgent | 11/14/2015 | | Results for this | | (NA, K, CL, TCO2, | | 5:35 PM | | procedure are in the | | BUN, CR, GLU, CA) | | PST | | results section. | + +--------+ + + + documented in this encounter Results CBC AND AUTO DIFF (11/14/2015 5:35 PM PST) + +---------+ + + + | Component | Value | Ref Range | Performed | Pathologist | | | | | At | Signature | + +---------+ + + + | WBC COUNT | 8.3 | 4.4 - 11.0 K/cu | [facility] | | | | | mm | A MEDICAL | | | | | | CENTER | | + +---------+ + + + | RED CELL | 5.70 | 4.50 - 6.00 | [facility] | | | COUNT | | M/cu mm | A MEDICAL | | | | | | CENTER | | + +---------+ + + + | HEMOGLOBIN | 16.5 | 13.5 - 17.5 | [facility] | | | | | g/dL | A MEDICAL | | | | | | CENTER | | + +---------+ + + + | HEMATOCRIT | 49.4 | 41.0 - 53.0 % | [facility] | | | | | | A MEDICAL | | | | | | CENTER | | + +---------+ + + + | MCV | 86.6 | 80.0 - 96.0 fL | [facility] | | | | | | A MEDICAL | | | | | | CENTER | | + +---------+ + + + | MCH | 29.0 | 28.0 - 34.7 pg | [facility] [...] +---------+ + + + | RDW | 14.5 | 11.5 - 15.0 % | [facility] | | | | | | A MEDICAL | | | | | | CENTER | | + +---------+ + + + | PLATELET | 227 | 150 - 400 K/cu | [facility] | | | COUNT | | mm | A MEDICAL | | | | | | CENTER | | + +---------+ + + + | MPV | 7.9 (L) | 9.7 - 12.3 fL | [facility] | | | | | | A MEDICAL | | | | | | CENTER | | + +---------+ + + + | NEUTROPHIL | 64.5 | 50.0 - 70.0 % | [facility] | | | % | | | A MEDICAL | | | | | | CENTER | | + +---------+ + + + | LYMPHOCYTE | 28.1 | 18.0 - 42.0 % | [facility] | | | % | | | A MEDICAL | | | | | | CENTER | | + +---------+ + + + | MONOCYTE % | 6.3 | 3.5 - 9.0 % | [facility] [...] + + + | BASO % | 0.5 | 0.0 - 2.0 % | [facility] | | | | | | A MEDICAL | | | | | | CENTER | | + +---------+ + + + | NEUTROPHIL | 5.40 | 1.80 - 7.70 | [facility] | [...] + + + | EOS # | 0.00 | 0.00 - 0.50 | [facility] | [...] + + + + | [facility] | [address] | [place], [place] | [phone] | | MEDICAL CENTER | Streets | [address] | | + + + + + BASIC METABOLIC SET (NA, K, CL, TCO2, BUN, CR, GLU, CA) (11/14/2015 5:35 PM PST) + +---------+ + + + | Component | Value | Ref Range | Performed | Pathologist | | | | | At | Signature | + +---------+ + + + | GLUCOSE, | 129 (H) | 70 - 105 mg/dL | [facility] | | | PLASMA | | | A MEDICAL | | | (LAB) | | | CENTER | | + +---------+ + + + | BUN, PLASMA | 13 | 6 - 26 mg/dL | [facility] | | | (LAB) | | | A MEDICAL | | | | | | CENTER | | + +---------+ + + + | CREATININE, | 1.2 | 0.9 - 1.3 mg/dL | [facility] | | | PLASMA | | | A MEDICAL | | | | | | CENTER | | + +---------+ + + + | SODIUM, | 141 [...] +---------+ + + + | CALCIUM, | 10.2 | 8.5 - 10.8 | [facility] | | | PLASMA | | mg/dL | A MEDICAL | | | (LAB) | | | CENTER | | + +---------+ + + + | BUN/CREATIN | 11 | 6 - 20 | [facility] | | | INE RATIO | | | A MEDICAL | | | | | | CENTER | | + +---------+ + + + | EGFR | >60 | >60 mL/min | [facility] | | | - | | | A MEDICAL | | | [place] | | | CENTER | | + [...] + + | [facility] | [address] | [place] | [phone] | | MEDICAL CENTER | [address] | [address] | | + + + + + documented in this encounter Visit Diagnoses + + | Diagnosis | + + | Diarrhea, infectious, adult - Primary Infectious diarrhea | + + | Vomiting in adult Vomiting alone | + + documented in this encounter Administered Medications + +---------+ + +-------+------+ | Medication Order | MAR | Action | Dose | Rate | Site | | | Action | Date | | | | + +---------+ + +-------+------+ | lactated ringers IV 1,000 mL, | New Bag | 11/14/19 | 1,000 mL | 1000 | | | intravenous, ONCE, 1 dose, Sat | | 16 5:42 | | mL/hr | | | 11/14/15 at 1815 | | PM PST | | | | + +---------+ + +-------+------+ +---+---+ | | | +---+---+ + +---------+ +------+---+---+ | ondansetron (ZOFRAN) injection | IV Push | 11/14/19 | 4 mg | | | | 4 mg 4 mg, intravenous, ONCE, 1 | | 16 5:35 | | | | | dose, 11/14/15 at 1815 | | PM PST | | | | + +---------+ +------+---+---+ +---+---+ | | | +---+---+ documented in this encounter
--- OUTSIDE RECORDS SUMMARY | ~2020-05-06 | XMS | Encounter Summary ---
Demographics + + + | Address | [address] | | | [place] [address] | + + + | Home Phone | | + + + | Preferred Language | Unknown | + + + | Marital Status | Single | + + + | Protestant Affiliation | NRP | + + + [...] [place] | | | | | [address] | | + + + + + Care Team Providers + +------+ + | Care Checker In Name | Role | Phone | + [...] + + | 03/26/ | Office | [facility] | Humberto, | Pain, abdominal, RLQ | | 2019 | Visit | [facility] [address] | Angel Woodall MD [address] | (Primary Dx) | | | | [address] | [address] | | | | | [place], [place] | [place], [place] | | | | | [address] | [address] | | | | | [phone] | [phone] | | | | | | | [...] other systems reviewed and are negative. A Ethnology Teacher was offered to the patient and declined. [...]
--- OUTSIDE RECORDS SUMMARY | ~2020-05-06 | XMS | Encounter Summary ---
Demographics + + + | Address | [address] [place] | | | [place] [address] | + + + | Home Phone [...] [place] | | | | | [address] | | + + + + + Care Team Providers + +------+ + | Care Grip Assembler Name | Role | Phone | [...] (GABAPENTIN, | | | | [address] [place], | | [place]) | | | | [place] [address] | | | | | | [phone] | | | +--------+--------+ + + + [...]
--- OUTSIDE RECORDS SUMMARY | ~2020-05-06 | XMS | Encounter Summary ---
Demographics + + + | Address | [address] | | | [place] [address] | + + + | Home Phone [...] [place] | | | | | [address] | | + + + + + Care Team Providers + +------+ + | Care Director Workers Compensation Name | Role | Phone | + +------+ + | Herbert Marie MD,MPH | PCP | Unavailable | + +------+ + Reason for Visit + + + | Reason | Comments | + + + | Immunization | varicella vaccine | + + + Encounter Details +--------+ + + + + | Date | Type | Department | Care Team | Description | +--------+ + + + + | 07/05/ | Clinical | [facility] | | Immunization | | 2016 | Support | Medicine [address] | | (varicella vaccine ) | | | Staff | [address] [facility] | | | | | [place] [address] | | | | | | [phone] | | | +--------+ + + + [...] this encounter Progress Rebeca Lin MA - 07/05/2016 2:01 PM PDTPt in clinic today to receive varicella vaccine . Pt tolerated well. LALA DentElectronreese signed by Rebeca Young MA at 07/05/2016 2 :15 PM PDTdocumented in this encounter Plan of Treatment Not on filedocumented as of this encounter Visit Diagnoses + + | Diagnosis | + + | Need for varicella vaccine Need for prophylactic vaccination and inoculation against | | varicella | + + documented in this encounter"
--- OUTSIDE RECORDS SUMMARY | ~2020-05-06 | XMS | Encounter Summary ---
Demographics + + + | Address | [address] | | | [place] [address] | + + + | Home Phone [...] [place] | | | | | [address] | | + + + + + Care Team Providers + +------+ + | Care Perioperative Assistant Name | Role | Phone | [...] | Dx) | | | | [place] | [address] | | | | | [address] | [phone] | | | | | [phone] | | | +--------+---------+ + + + [...]
--- OUTSIDE RECORDS SUMMARY | ~2020-05-06 | XMS | Encounter Summary ---
Demographics + + + | Address | [address] | | | [place] [address] | + + + | Home Phone [...] [place] | | | | | [address] | | + + + + + Care Team Providers + +------+ + | Care Leaf Coverer Name | Role | Phone | + +------+ + | Iliana Parker DO | PCP | | + +------+ + Encounter Details +--------+ + + + + | Date | Type | Department | Care Team | Description | +--------+ + + + + | 08/28/ | Outside | [facility] | Iliana Parker, | | | 2017 | Referral | [facility] [address] | DO [address] | | | | Order | [address] | [place] [address] | | | | | [place] | [phone] | | | | | [address] | | | +--------+ + + + [...] | + + + | [address] [place] [address] | [facility] | | [place] [address] [facility] | | [phone] Name: CHUCK SANTOS Phys: | RADIOLOGY | | ILIANA JAVED : 1975 Sex: M | | | CSN: [id number] MR# [id number] Exam Date: | | | 09/03/2018 EXAM: [...] Transcribed | | | Date/Time: 09/03/2018 18:00 Pharmaceutical Worker: FLUENCY | | + + + + + | Procedure Note | + + | Interface, Radiology Results - 09/03/2018 6:05 PM PST [address] | | [address] [place] [address] | | Name: CHUCK SANTOS Phys: ILIANA JAVED : 1975 Sex: M | | CSN: [id number] MR# [id number] Exam Date: 09/03/2018 EXAM:SCROTAL ULTRASOUND | | [...] | | |Transcribed Date/Time: 09/03/2018 18:00 | |Pharmaceutical Worker: FLUENCY | | | | | | [...]
--- OUTSIDE RECORDS SUMMARY | ~2020-05-06 | XMS | Encounter Summary ---
Demographics + + + | Address | [address] | | | [place] [address] | + + + | Home Phone [...] + + + + + | Neda Castñaeda | ECON | [place] | | | | | [address] | | + + + + + Care Team Providers + +------+ + | Care Control And Recovery [facility] [employer] Name | Role | Phone | + [...] | | | | | | [place] [address] | | | | | | [phone] | | | | | | | [...] + + + | [facility] | [address] | [place] | [phone] | | [facility]ICAL [facility] | [address] | [address] | | + + + + + [...] | | | | Siemenschemiluminescent | | -[place] | | | | method. Values obtained [...] [facility] | | | | | | [id number] | | | | | | [address] [place] | | | | | | [address], [place] | | | | | | [address]: | | | | | | ALEXEI HAYDEN MD | | | | + + + + + + + + | Specimen | + + | | + + + + + + + | Performing | Address | City/State/Zipcode | Phone Number | | Organization | | | | + + + + + | [facility] | [address] [facility] | [place] [address] | [phone] | | [facility] | | | | + + + + + documented in this encounter Visit Diagnoses Not on filedocumented in this encounter"
--- OUTSIDE RECORDS SUMMARY | ~2020-05-06 | XMS | Encounter Summary ---
Demographics + + + | Address | [address] | | | [place] [address] | + + + | Home Phone [...] + + + | Author | [facility] | + + + | Organization | [facility] | + + + | Address | Unknown | + + + | Phone | Unavailable | + + + Support + + + + + | Name | Relationship | Address | Phone | + + + + + | Neda Castañeda | ECON | [place] | | | | | [address] | | + + + + + Care Team Providers + +------+ + | Care Oven Tender Bagels Name | Role | Phone | + +------+ + | Nathaniel Figueroa MD,MPH | PCP | Unavailable | + +------+ + Reason for Referral Physical Therapy (Routine) +--------+--------+ + + + + | Status | Reason | Specialty | Diagnoses / | Referred By | Referred To | | | | | Procedures | Contact | Contact | +--------+--------+ + + + + | Closed | | Physical | Diagnoses | Karmen, | [facility] | | | | Therapy | | SERGIO Grady | [address] | | | | | Post-concuss | [address] | | | | | ion vertigo | [address] | [place], | | | | | Procedures | [place] | [place] [address] | | | | | PHYSICAL | [address] | Phone: | | | | | THERAPY | Phone: | [phone] | | | | | REFERRAL | [phone] | Fax: | | | | | | Fax: | [phone] | | | | | | [phone] | | +--------+--------+ + + + + Reason for Visit + + + | Reason | Comments | + + + | Er Visit Follow-up | head injury & dizziness | + + + Encounter Details +--------+---------+ + + + | Date | Type | Department | Care Team | Description | +--------+---------+ + + + | 11/22/ | Office | [facility] | Miguel A Tian PA-C | Post-concussion | | 2017 | Visit | Medicine [address] | vertigo (Primary Dx) | | | | [address] [place], | [place], [place] | | | | | [place] [address] | [address] | | | | | [phone] | [phone] | | | | | | | [...] + + + | Blood Pressure | 100/70 | 11/22/2016 3:03 PM | | | | | PST | | + + + + + | Pulse | 61 | 11/22/2016 3:03 PM | | | | | PST | | + + + + + | Temperature | - | - | | + + + + + | Respiratory Rate | - | - | | + + + + + | Oxygen Saturation | 98% | 11/22/2016 3:03 PM | | | | | PST | | + + + + + | Inhaled Oxygen | - | - | | | Concentration | | | | + + + + + | Weight | 88.9 kg (196 lb) | 11/22/2016 3:03 PM | | | | | PST | | + + + + + | Height | 162.6 cm (5' 4") | 11/22/2016 3:03 PM | | | | | PST | | + + + + + | Body Mass Index | 33.64 | 11/22/2016 3:03 PM | | | | | PST | | + + + + + documented in this encounter Patient Instructions Patient Instructions Miguel A Tian PA-C - 11/22/2016 3:00 PM PST1) Physical therapy referr al bernadette. They will call you to schedule. Make sure to confirm insurance coverage when they call 2) Ondansetron sent to your pharmacy for nausea as needed. Do not take more than 8 mg per d ay 3) Return if symptoms persist or worsen 4) Continue meclizine as needed for vertigo symptoms documented in this encounter Progress Notes Miguel A Tian PA-C - 11/22/2016 3:00 PM PST Family Medicine Emergency Department Discharge Follow-Up Date of Service: 11/22/16, 3:10 PM Author: Miguel A Tian PA-C Providers Involved in Care of Patient: NATHANIEL FIGUEROA MD,MPH HPI: Mr. Castañeda is here to follow up after visiting the [facility] on 11/18/16. He was diagnosed with post-concussive syndrome with vertigo and sen t home. He was prescribed meclizine and valium, which have helped with the symptoms. He is s till having some vertigo with certain head movements and position changes. Their chronic medical issues include: Patient Active Problem List Diagnosis Cervical pain Left-sided low back pain with left-sided sciatica Left thigh pain Recurrent kidney stones BMI 31.0-31.9,adult Mixed hyperlipidemia Prediabetes Family history of pancreatic cancer Family history of colon cancer Elevated ALT measurement Carpal tunnel syndrome of left wrist Relevant Diagnostics: None performed Laboratory Data: No visits with results within 2 Week(s) from this visit. Review of Systems Constitutional: Negative for chills, diaphoresis, fever, malaise/fatigue and weight loss. HENT: Negative for congestion, ear discharge, ear pain, hearing loss, nosebleeds, sore thro at and tinnitus. Vertigo Eyes: Negative for blurred vision, double vision, photophobia, pain, discharge and redness. Respiratory: Negative for stridor. Gastrointestinal: Positive for nausea. Negative for abdominal pain, blood in stool, constip ation, diarrhea, heartburn, melena and vomiting. Neurological: Negative for weakness and headaches. Allergies: Allergies Allergen Reactions Pineapple Anaphylaxis Bromelains Throat Swelling / Closing Ibuprofen Unknown Naproxen Bleeding Penicillins Throat Swelling / Closing Medications: Current Outpatient Prescriptions: atorvastatin 40 mg oral tablet, Take 1 tablet by mouth on ce daily., Disp: 90 tablet, Rfl: 3 diazePAM 2 mg oral tablet, Take 1 tablet by mouth every eight hours as needed (vertigo)., D isp: 12 tablet, Rfl: 0 famotidine 40 mg oral tablet, Take 1 tablet by mouth once daily at bedtime., Disp: 30 table t, Rfl: 2 fluticasone 50 mcg/actuation nasal spray,suspension, Instill 2 sprays into each nostril onc e daily., Disp: 1 each, Rfl: 2 gabapentin 300 mg oral capsule, Take 2 capsules by mouth three times daily., Disp: 540 caps ule, Rfl: 1 meclizine 25 mg oral tablet, Take 1 tablet by mouth twice daily as needed for nausea/vomiti ng., Disp: 28 tablet, Rfl: 0 meloxicam 7.5 mg oral tablet, Take 1 tablet by mouth once daily., Disp: 30 tablet, Rfl: 1 ondansetron ODT 4 mg oral tablet,disintegrating, Dissolve 1 tablet in mouth every twelve ho urs as needed for nausea/vomiting., Disp: 30 tablet, Rfl: 0 tiZANidine 4 mg oral tablet, Take 1 tablet by mouth every six hours as needed. Max: 36 mg / day., Disp: 60 tablet, Rfl: 2 Physical Exam: BP 100/70 | Pulse 61 | Ht 1.626 m (5' 4") | Wt 88.9 kg (196 lb) | SpO2 98% | BMI 33.64 kg/( m^2) Physical Exam Constitutional: He is oriented to person, place, and time and well-developed, well-nourishe d, and in no distress. HENT: Head: Normocephalic and atraumatic. Musculoskeletal: Cervical back: He exhibits normal range of motion, no tenderness, no bony tenderness a nd no deformity. Neurological: He is alert and oriented to person, place, and time. He has normal motor skil ls and normal reflexes. He displays no weakness, facial symmetry, normal stance and normal r eflexes. No cranial nerve deficit. He exhibits normal muscle tone. He has a normal Romberg T est. He shows no pronator drift. Gait normal. Coordination and gait normal. COGNITIVE ASSESSMENT: Orientation: 02/01 5 word recall: Try 1:5/5 Try 2:5/5 Try 3 5/5 Numbers backward: 3/3; 3/4; 3/5 WORLD backward: 3/5 Months in Reverse Order (# of misses): 2 5 word recall: Try 4:4/5 Vestibular/Ocular Motor Screening (VOMS) assessment - Rate symptoms on 0-10 scale: Headache, Dizziness, Nausea, Fogginess Near Point Accommodation (NPA) - 3 measurements - blurriness occurs 10. 10. 10 cm from nose - symptoms no Near Point Convergence (NPC) - 3 measurements - diplopia occurs 5, 5, 5 cm from nose - symp toms: no Smooth Pursuits - 2 repetitions - symptoms: yes Horizontal and Vertical Saccades - 10 repetitions - symptoms: yes Horizontal and Vertical Vestibular Ocular Reflex (VOR) - 10 repetitions - symptoms: yes Visual Motion Sensitivity (VMS) - 5 repetitions - symptoms: yes Mendez was seen today for er visit follow-up. Diagnoses and all orders for this visit: Post-concussion vertigo Comments: He is essentially symptom free except for intermittent vertigo, horizontal > vertical eye m ovements. Will refer to PT for treatment Orders: - ondansetron ODT 4 mg oral tablet,disintegrating; Dissolve 1 tablet in mouth every twe lve hours as needed for nausea/vomiting. - PHYSICAL THERAPY REFERRAL Return if symptoms worsen or fail to improve. Patient Instructions 1) Physical therapy referral placed. They will call you to schedule. Make sure to confirm i nsurance coverage when they call 2) Ondansetron sent to your pharmacy for nausea as needed. Do not take more than 8 mg per d ay 3) Return if symptoms persist or worsen 4) Continue meclizine as needed for vertigo symptoms Signed, Miguel A Tian PA-C [facility] ieusebio, TEJAL Sherman - 11/22/2016 3:00 PM PST Mendez Castañeda is a 41 y.o. male who is in clinic today accompanied by spouse. Patient h ere for ER fu for head injury. Still having dizziness. 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 documented in this encounter Plan of Treatment Not on filedocumented as of this encounter Visit Diagnoses + + | Diagnosis | + + | Post-concussion vertigo - Primary Postconcussion syndrome | + + documented in this encounter
--- OUTSIDE RECORDS SUMMARY | ~2020-05-06 | XMS | Encounter Summary ---
Demographics + + + | Address | [address] | | | [place] [address] | + + + | Home Phone [...] [place] | | | | | [address] | | + + + + + Care Team Providers + +------+ + | Care Bioinformatics Computer Scientist Name | Role | Phone | + +------+ + | Herbert Marie MD,MPH | PCP | Unavailable | + +------+ + Reason for Visit + + + | Reason | Comments | + + + | Follow-up visit | 3 week . Pt. states no symptoms. | + + + Encounter Details +--------+---------+ + + + | Date | Type | Department | Care Team | Description | +--------+---------+ + + + | 06/21/ | Office | [facility] | Herbert Marie Dawit, | Epigastric pain | | 2016 | Visit | Medicine [address] | ,MPH | (Primary Dx); | | | | [address] [place], | | Recurrent kidney | | | | [place] [address] | | stones; Elevated BP; | | | | [phone] | | Healthcare | | | | | | maintenance; | | | | | | Immunity status | | | | | | testing; Mixed | | | | | | hyperlipidemia; | | | | | | Hyperglycemia; | | | | | | Family history of | | | | | | pancreatic cancer; | | | | | | Family history of | | | | | | colon cancer | +--------+---------+ + + + Social History [...] + + + | Blood Pressure | 120/82 | 06/21/2016 1:18 PM | | | | | PDT | | + + + + + | Pulse | 80 | 06/21/2016 1:18 PM | | | | | PDT | | + + + + + | Temperature | 36.7 C (98.1 F) | 06/21/2016 1:18 PM | | | | | PDT | | + + + + + | Respiratory Rate | - | - | | + + + + + | Oxygen Saturation | 98% | 06/21/2016 1:18 PM | | | | | PDT | | + + + + + | Inhaled Oxygen | - | - | | | Concentration | | | | + + + + + | Weight | 89.8 kg (198 lb) | 06/21/2016 1:18 PM | | | | | PDT | | + + + + + | Height | - | - | | + + + + + | Body Mass Index | 31.01 | 05/30/2016 2:38 PM | | | | | PDT | | + + + + + documented in this encounter Patient Instructions Patient Instructions Herbert Marie MD,MPH - 06/21/2016 1:41 PM PDTContinue famotidine fo r reflux Checking labs today If you do not show antibody to chickenpox virus, we will give you the 2-shot immunization w e give kids Test results will be released through [employer] or sent as a letter. It may take 4-5 days for the results to be released. Call us if you do not receive results in 2 weeks. Thanks. Herbert Marie MD, MPH 06/21/2016 1:43 PM documented in this encounter Progress Notes Herbert Marie MD,MPH - 06/21/2016 1:43 PM PDT Chief Complaint Patient presents with Follow-up visit 3 week . Pt. states no symptoms. Subjective HPI Comments: Patient presents with: Follow-up visit: 3 week . Pt. states no symptoms. Epigastric pain Resolved on famotidine started after last OV Feels good Recurrent renal stone No further pain Was on left side last time Elevated BP Was elevated around time had significant pain from renal colic BP Readings from Last 3 Encounters: 06/21/16 : 120/82 05/30/16 : 124/98 05/25/16 : 145/108 HLD Will get lab done today ordered last month Not on med Lab Results Component Value Date CHOL 285 10/11/2014 LDL RACE STARTER 10/11/2014 HDL 35 10/11/2014 TRI 422 10/11/2014 Hyperglycemia Lab Results Component Value Date GLU 107* 05/25/2016 No results found for: A1C - ordered last month, do today Patient states that he has not had chickenpox He is concerned about ana it as an adult He would like testing done to see if he has had it Family history of pancreatic cancer Brother and sister have had pancreatic cancer Labs ordered by Dr. Delvalle in February I have reviewed the PMH, SH, FHX, MEDS, ALLERGIES and updated the computerized patient jose rd appropriately Review of Systems Constitutional: Negative for fever, chills, weight loss, malaise/fatigue and diaphoresis. HENT: Negative for congestion, ear discharge, ear pain, hearing loss, nosebleeds, sore thro at and tinnitus. Eyes: Negative for blurred vision, double vision, photophobia, pain, discharge and redness. Respiratory: Negative for cough, hemoptysis, sputum production, shortness of breath, wheezi ng and stridor. Cardiovascular: Negative for chest pain, palpitations, claudication and leg swelling. Gastrointestinal: Negative for heartburn, nausea, vomiting, abdominal pain, diarrhea, const ipation, blood in stool and melena. Genitourinary: Negative for dysuria, urgency, frequency, hematuria and flank pain. Musculoskeletal: Negative for myalgias, back pain, joint pain, falls and neck pain. Skin: Negative for itching and rash. Neurological: Negative for dizziness, tingling, tremors, sensory change, speech change, foc al weakness, seizures, loss of consciousness, weakness and headaches. Endo/Heme/Allergies: Negative for environmental allergies and polydipsia. Does not bruise/b leed easily. Psychiatric/Behavioral: Negative for depression, suicidal ideas, hallucinations, memory los s and substance abuse. The patient is not nervous/anxious and does not have insomnia. Objective BP 120/82 | Pulse 80 | Temp (Src) 36.7 C (98.1 F) (Oral) | Wt 89.812 kg (198 lb) | SpO2 98% | BMI 31 kg/(m^2) Physical Exam Constitutional: He is well-developed, well-nourished, and in no distress. HENT: Head: Normocephalic and atraumatic. Eyes: Conjunctivae and EOM are normal. Cardiovascular: Normal rate, regular rhythm and normal heart sounds. No murmur heard. Pulmonary/Chest: Effort normal and breath sounds normal. He has no wheezes. He has no rales . Abdominal: Soft. Bowel sounds are normal. There is no hepatosplenomegaly. There is no tende rness. There is no CVA tenderness. Musculoskeletal: He exhibits no edema. Lymphadenopathy: He has no cervical adenopathy. Neurological: He is alert. Skin: Skin is warm and dry. Psychiatric: Mood and affect normal. Assessment Mendez was seen today for follow-up visit. Diagnoses and all orders for this visit: Epigastric pain Comments: resolved on H2 crys Recurrent kidney stones Comments: no recurrence Elevated BP Comments: now normal since stone pain resolved Healthcare maintenance - STAFF TO GIVE: INFLUENZA VACC, QUADRIVALENT, 3+ YEARS, IM Immunity status testing Comments: pt says he has not had chickenpox Orders: - VARICELLA ZOSTER IGG, SERUM; Future Mixed hyperlipidemia Hyperglycemia Family history of pancreatic cancer Comments: brother and sister - periodic CA19-9, CA 15-3, UA and a chest xray Family history of colon cancer Comments: father Return in about 1 year (around 06/21/2017) for Health Maintenance Examination. Patient Instructions Continue famotidine for reflux Checking labs today If you do not show antibody to chickenpox virus, we will give you the 2-shot immunization w e give kids Test results will be released through [employer] or sent as a letter. It may take 4-5 days for the results to be released. Call us if you do not receive results in 2 weeks. Thanks. Herbert Marie MD, MPH 06/21/2016 1:43 PM ong Martinez MA - 06/21/2016 1:28 PM PDTThe patient was screened for the following contraindications to infl uenza vaccine and responses were as follows: Febrile illness today? No Allergy to eggs? No Prior history of a reaction to flu vaccine? No Prior history of Guillain-Pomeroy syndrome? No (For patients receiving Fluarix): Allergy or sensitivity to Latex? No documented in this encou nter Plan of Treatment Not on filedocumented as of this encounter Results VARICELLA ZOSTER IGG, SERUM [...] + + + | Test performed at [facility] | [facility] | | [address] | DIAGNOSTICS - | | [place] [address] | [place] | | Distribution Operations Manager BRIAN LOPES MD | | + + + + + + + + | Performing | Address | City/State/Zipcode | Phone Number | | Organization | | | | + + + + + | [facility] | [address] [facility] | [place] [address] | | | - [place] | [address] | | | + + + + + documented in this encounter Visit Diagnoses + + | Diagnosis | + + | Epigastric pain - Primary Abdominal pain, epigastric | + + | Recurrent kidney stones Calculus of kidney | + + | Elevated BP Elevated blood pressure reading without diagnosis of hypertension | + + | Healthcare maintenance Routine general medical examination at a health care facility | + + | Immunity status testing Antibody response examination | + + | Mixed hyperlipidemia | + + | Hyperglycemia Other abnormal glucose | + + | Family history of pancreatic cancer Family history of malignant neoplasm of | | gastrointestinal tract | + + | Family history of colon cancer Family history of malignant neoplasm of | | gastrointestinal tract | + + documented in this encounter"
--- OUTSIDE RECORDS SUMMARY | ~2020-05-06 | XMS | Encounter Summary ---
Demographics + + + | Address | [address] | | | [place] [address] | + + + | Home Phone [...] Author + + + | Author | [facility] | + + + | Organization | [facility] | + + + | Address | Unknown | + + + | Phone | Unavailable | + + + Support + + + + + | Name | Relationship | Address | Phone | + + + + + | Neda Castañeda | ECON | [place] | | | | | [address] | | + + + + + Care Team Providers + +------+ + | Care Learning Operations Specialist Name | Role | Phone | [...] [place] | | | | | | [address] | | | | | | [phone] | | | | | | | [...] | Results for this | | LIMITED [id number] | e | 12:55 AM | | procedure are in the | | | | PST | | results section. | + +--------+ + + + documented in this encounter Results ABD. ULTRASOUND LIMITED [id number] (08/17/2011 12:55 AM PST) + + | [...] limited abdominal | | | ultrasound. Job [id number] | | + + + + + [...] Negative limited abdominal ultrasound. | | Job [id number] | + + + +---------+ + + [...]
--- OUTSIDE RECORDS SUMMARY | ~2020-05-06 | XMS | Encounter Summary ---
Demographics + + + | Address | [address] | | | [place] [address] | + + + | Home Phone [...] [place] | | | | | [address] | | + + + + + Care Team Providers + +------+ + | Care Last Putter Away Name | Role | Phone | + +------+ + | Violeta Parker DO | PCP | | + +------+ + Encounter Details +--------+ + + + + | Date | Type | Department | Care Team | Description | +--------+ + + + + | 08/04/ | Document-Sc | [facility] | [place], | | | 2018 | [place] | Surgery Clinic [address] | Angel Woodall MD [address] | | | | | [address] | [address] | | | | | [place], [place] | [place], [place] | | | | | [address] | [address] | | | | | [phone] | [phone] | | | | | | | [...]
--- OUTSIDE RECORDS SUMMARY | ~2020-05-06 | XMS | Encounter Summary ---
Demographics + + + | Address | [address] | | | [place] [address] | + + + | Home Phone [...] [place] | | | | | [address] | | + + + + + Care Team Providers + +------+ + | Care Power Station Operator Name | Role | Phone | + +------+ + | Violeta Parker DO | PCP | | + +------+ + Encounter Details +--------+ + + + + | Date | Type | Department | Care Team | Description | +--------+ + + + + | 09/07/ | Telephone | [facility] | [place], | | | 2019 | | Surgery Clinic [address] | Angel Woodall MD [address] | | | | | [address] | [address] | | | | | [place] | [place] | | | | | [address] | [address] | | | | | [phone] | [phone] | | | | | | | [...]
--- OUTSIDE RECORDS SUMMARY | ~2020-05-06 | XMS | Encounter Summary ---
Demographics + + + | Address | [address] | | | [place] [address] | + + + | Home Phone [...] [place] | | | | | [address] | | + + + + + Care Team Providers + +------+ + | Care Plastics Plater Name | Role | Phone | + +------+ + | Violeta Parker DO | PCP | | + +------+ + Encounter Details +--------+ + + + + | Date | Type | Department | Care Team | Description | +--------+ + + + + | 12/23/ | Procedure | Diagnostic Imaging | | | | 2018 | Pass | [facility] | | | | | | [address] | | | | | | [place] | | | | | | [address] | | | | | | [phone] | | | +--------+ + + + [...]
--- OUTSIDE RECORDS SUMMARY | ~2020-05-06 | XMS | Encounter Summary ---
Demographics + + + | Address | [address] | | | [place] [address] | + + + | Home Phone [...] Author + + + | Author | [facility] | + + + | Organization | [facility] | + + + | Address | Unknown | + + + | Phone | Unavailable | + + + Support + + + + + | Name | Relationship | Address | Phone | + + + + + | Neda Castañeda | ECON | [place] | | | | | [address] | | + + + + + Care Team Providers + +------+ + | Care Starch Mangle Tender Name | Role | Phone | + +------+ + | Herbert Marie MD,MPH | PCP | Unavailable | + +------+ + Reason for Visit + + + | Reason | Comments | + + + | Prior Authorization | TIZANIDINE HCL 4MG CAPSULE | | Request - Medication | | + + + Encounter Details +--------+ + + + + | Date | Type | Department | Care Team | Description | +--------+ + + + + | 04/20/ | Telephone | [facility] | Frank[facility]bert, | Prior Authorization | | 2016 | | Medicine [address] | [place] | Request - Medication | | | | [address] [place], | | (TIZANIDINE HCL 4MG | | | | [place] [address] | | CAPSULE) | | | | [phone] | | | +--------+ + + + [...]
--- OUTSIDE RECORDS SUMMARY | ~2020-05-06 | XMS | Encounter Summary ---
Demographics + + + | Address | [address] | | | [place] [address] | + + + | Home Phone [...] [place] | | | | | [address] | | + + + + + Care Team Providers + +------+ + | Care Patient Centered Care Specialist Name | Role | Phone | + +------+ + | Violeta Parker DO | PCP | | + +------+ + Encounter Details +--------+------+ + + + | Date | Type | Department | Care Team | Description | +--------+------+ + + + | 08/14/ | Lab | Laboratory at | | Encounter for | | 2019 | | [facility] | | screening for | | | | Center [address] | | diabetes mellitus | | | | [address] [place] | | (Primary Dx); | | | | [address] | | Encounter for | | | | [phone] | | screening for lipoid | | [...] (H) | 101 - 199 mg/dL | [facility] | | [...] | FASTING 8 | No | | [facility] | | [...] + + | [facility] | [address] | [place], [place] | [phone] | | [facility] | [facility] | [address] | | + + + + + [...] | | A MEDICAL | | | [facility] | | | CENTER | | + [...] | FASTING 8 | No | | [facility] | | | HOURS [place] | [...] using the MDRD equation recommended by the [facility] | | Kidney Disease Education Program. Estimated GFR Interpretive | [facility] | | Information: <60 mL/min/1.73 sq m [...] | [facility] | And | [place] | [phone] | | [facility] | [facility] | [address] | | + + + + + documented in this encounter Visit Diagnoses + + | Diagnosis | + + | Encounter for screening for diabetes mellitus - Primary Screening for diabetes | | mellitus | + + | Encounter for screening for lipoid disorders Screening for lipoid disorders | + + documented in this encounter"
--- OUTSIDE RECORDS SUMMARY | ~2020-05-06 | XMS | Encounter Summary ---
Demographics + + + | Address | GENERAL DELIVERY | | | [place] [address] | + + + | Home Phone [...] [place] | | | | | [address] | | + + + + + Care Team Providers + +------+ + | Care Tire Installer Name | Role | Phone | + +------+ + | Miguel A Peraza PA-C | PCP | | + +------+ + Encounter Details +--------+------+ + + + | Date | Type | Department | Care Team | Description | +--------+------+ + + + | 09/12/ | Lab | Laboratory at [facility] | | Prediabetes | | 2016 | | Family Medicine | | | | | | [address] [place] [address] The | | | | | | [place] | | | | | | [address] | | | | | | [phone] | | | +--------+------+ + + + [...] + | HEMOGLOBIN A1C, | Routin | 09/12/2017 | Prediabetes | Results for this | | BLOOD | e | 11:26 AM | | procedure are in the | | | | PST | | results section. | + +--------+ + + + documented in this encounter Results HEMOGLOBIN A1C, BLOOD (09/12/2017 11:26 AM PST) + +-------+ + + + | Component | Value | Ref Range | Performed | Pathologist | | | | | At | Signature | + +-------+ + + + | HEMOGLOBIN | 5.5 | % | [facility] | | | A1C | | | A MEDICAL | | | | | | CENTER | | + +-------+ + + + | ESTIMATED | 111 | mg/dL | [facility] | | | AVERAGE | | [...] Diabetic Ranges per DCCT & ADA: | [facility] | | Normal Range: <6% | [facility] | | Good Control: <7% | | | Additional action suggested: >8% Non-Diabetic | | | Ranges: 4-6% Ap Operator's Glycohemoglobin | | | Diabetic Ranges: Normal Range: | | | 4.0-6.0% Good Control: | | | 6.0-8.0% Poor Control: | | | >8.0% | | + + + + + + + + | Performing | Address | City/State/Zipcode | Phone Number | | Organization | | | | + + + + + | [facility] | And | [place], [place] | [phone] | | [facility] | [facility] | [address] | | + + + + + documented in this encounter Visit Diagnoses + + | Diagnosis | + + | Prediabetes Other abnormal glucose | + + documented in this encounter"
--- OUTSIDE RECORDS SUMMARY | ~2020-05-06 | XMS | Encounter Summary ---
Demographics + + + | Address | GENERAL DELIVERY | | | [place] [address] | + + + | Home Phone | | + + + | Preferred Language | Unknown | + + + | Marital Status | Single | + + + | Presybeterian Affiliation | NRP | + + + [...] [place] | | | | | [address] | | + + + + + Care Team Providers + +------+ + | Care Trekking Guide Name | Role | Phone | + +------+ + | Violeta Parker DO | PCP | | + +------+ + Encounter Details +--------+ + + + + | Date | Type | Department | Care Team | Description | +--------+ + + + + | 08/18/ | Telephone | [facility] | [place], | | | 2017 | | Surgery Clinic [address] | Angel Woodall MD [address] | | | | | E The | E The | | | | | [place] | [place] | | | | | [address] | [address] | | | | | [phone] | [phone] | | | | | | | [...]
--- OUTSIDE RECORDS SUMMARY | ~2020-05-06 | XMS | Encounter Summary ---
Demographics + + + | Address | GENERAL DELIVERY | | | [place] [address] | + + + | Home Phone [...] [place] | | | | | [address] | | + + + + + Care Team Providers + +------+ + | Care Director Medical Safety Name | Role | Phone | + [...] | 2015 - | | Department at [facility] | [address] | | | | | Hospital [address] | [place] | | | 05/26/ | | [place], | [address] | | | 2015 | | [place] [address] | [phone] | | | | | [phone] | | | +--------+ + + + [...] doctor if you can take an o ahp-ynu-ircofuh medicine. Read and follow all instructions on [...] "Kidney Stone: Care Instructions", log into your Current [employer] account at htt [email or web address]. You can enter X633 in the [employer]" search box. Not on [employer]? Review the Typo Keyboardst section of your After Visit Summary for directions on booker nani to sign up. [phone] [employer]. Care instructions adapted under license by [facility]. This care instruction is for use with your licensed healthcar e professional. If you have questions about a medical condition or this instruction, always ask your healthcare professional. [employer] disclaims any warranty or liabili ty for your use of this information. Content Version: 10.9.452462; Current as of: August 19, 2015 documented [...] Few hyaline casts (0-3 per lpf). | [facility] | | | [facility] [place] | + + + + + + + + | Performing | Address | City/State/Zipcode | Phone Number | | Organization | | | | + + + + + | [facility] | And | [place] | [phone] | | MEDICAL CENTER | Streets | [address] | | + + + + + [...] UROBILINOGE | Negative | Negative, 1.0 | [facility] | | | N | | mg/dL | A MEDICAL | | | | | | CENTER | | + + + + + + | SOURCE | Clean Catch | | [facility] | | | (URINALYSIS | | | [...] [facility] | And | [place] | [phone] | | [facility] | Streets | [address] | | + + + + + X-RAY ABDOMEN 1 VIEW (05/25/2016 10:54 PM PDT) + + | Specimen | + + | | + + + + + | Narrative | Performed At | + + + | [address] | [facility] | | [place] [address] | DEPARTMENT OF | | [phone] Name: CHUCK SANTOS Phys: | RADIOLOGY | | RONI CHOW : 1975 Sex: M | | | CSN: [id number] MR# [id number] Exam Date: | | | 05/25/2016 EXAM: [...] | | | Transcribed Date/Time: 05/26/2016 11:14 Director Graphics: VAL | | | | | + + + + + | Procedure Note | + + | Interface, Radiology Results - 05/26/2016 11:18 AM PDT [address] | | [address] [place] [address] | | Name: CHUCK SANTOS Phys: RONI CHOW : 1975 Sex: M | | CSN: [id number] MR# [id number] Exam Date: 05/25/2016 EXAM:X-RAY ABDOMEN 1 VIEW [...] | | |Transcribed Date/Time: 05/26/2016 11:14 | |Director Graphics: FLUENCY | | | | | | | + + + +---------+ + + | Performing | Address | City/State/[facility] | Phone Number | | [...] + + | [facility] | [address] | [place] | [phone] | | [facility] [place] | [address] | [address] | | + + + + + [...] + | [facility] | [address] | [place], [place] | [phone] | | [facility] | [facility] | [address] | | + + + + + [...] | + + + + + | [facility] | [address] | [place], [place] | [phone] | | MEDICAL CENTER | Streets | [address] | | + + + + + BASIC METABOLIC SET (NA, K, CL, TCO2, BUN, CR, GLU, CA) (05/25/2016 10:40 PM PDT) + +---------+ + + + | Component | Value | Ref Range | Performed | Pathologist | | | | | At | Signature | + +---------+ + + + | GLUCOSE, | 107 (H) | 70 - 105 mg/dL | [facility] | | | PLASMA | | | A MEDICAL | | | (LAB) | | | CENTER | | + +---------+ + + + | BUN, PLASMA | 13 | 6 - 26 mg/dL | [facility] | | | (LAB) | | [...] | | A MEDICAL | | | LIBERIAN | | | CENTER | | + +---------+ + + + | EGFR NON | 57 (L) | >60 mL/min | [facility] | | | -ALIX | | | A MEDICAL | | | RICAN | | | CENTER | | + +---------+ + + + | ANION GAP | 16 | 12 - 20 mmol/L | [facility] | | | | | | [...] + + | [facility] | And | [place], [place] | [phone] | | MEDICAL CENTER | Streets | [address] | | + + + + + [...]
--- OUTSIDE RECORDS SUMMARY | ~2020-05-06 | XMS | Encounter Summary ---
Demographics + + + | Address | GENERAL DELIVERY | | | [place] [address] | + + + | Home Phone | | + + + | Preferred Language | Unknown | + + + | Marital Status | Single | + + + | Yazidi Affiliation | NRP | + + + [...] [place] | | | | | [address] | | + + + + + Care Team Providers + +------+ + | Care Latex Fashions Designer Name | Role | Phone | [...] | | | | disease), | | [address] | | | | | cervical | | Phone: | | | | | Chronic left | | [phone] | | | | | shoulder | [...] + + + + | 12/23/ | Transcribe | [facility] | Transcribe | | | 2019 | Orders | [facility] [address] | Cynthia Osman, | | | | | E The | [address] | | | | | [place] [address] | [place] [address] | | | | | [address] | | | +--------+ + + + [...] as of this encounter Results MRI SPINE CERVICAL WO CONTRAST (01/01/2019 10:31 AM PDT) + + | Specimen | + + | | + + + + + | Narrative | Performed At | + + + | [address] [place] [address] | [facility] | | [place], [place] [address] [place] [address] | | [phone] Name: CHUCK SANTOS Phys: | RADIOLOGY | | TELLOILIANA M : 1975 Sex: M | | | CSN: [id number] MR# [id number] Exam Date: | | | 01/01/2019 EXAM: [...] or foraminal stenosis. C3-4: | | | Glay-li-hkydgxlm diffuse disc osteophyte complex with bilateral mild [...] moderate foraminal stenosis. 3. | | | Bsfr-hl-ifxqfoia C3-4 diffuse disc osteophyte complex with bilateral | | | mild facet arthropathy and bilateral mild foraminal stenosis. | | | REPORT SIGNED IN OTHER VENDOR SYSTEM 01/01/2019 Reported by: | | | WADE MARTÍNEZ MD Electronically signed by: WADE MARTÍNEZ | | | Transcribed Date/Time: 01/01/2019 13:49 Director Of Student Aid: | | | FLUENCY | | + + + + + | Procedure Note | + + | Interface, Radiology Results - 01/01/2019 1:54 PM PDT [address] | | [address] [place] [address] | | Name: CHUCK SANTOS Phys: ILIANA JAVED : 1975 Sex: M | | CSN: [id number] MR# [id number] Exam Date: 01/01/2019 EXAM:MRI OF THE CERVICAL [...] canal or foraminal | | stenosis. C3-4: Ddhm-xg-qfrttbhv diffuse disc osteophyte complex with bilateralmild | [...] | central canal and bilateral moderate foraminalstenosis.3. Ulmd-lm-butbmkod C3-4 diffuse | | disc osteophyte complex [...] or foraminal stenosis. | | | |C3-4: Uxhb-zr-gtxfuahi diffuse disc osteophyte complex with bilateral | [...] bilateral moderate foraminal | |stenosis. | |3. Edvs-gp-xqhxyyzw C3-4 diffuse disc osteophyte complex with | |bilateral mild facet arthropathy and bilateral mild foraminal | |stenosis. | | | | | | REPORT SIGNED IN OTHER VENDOR SYSTEM 01/01/2019 | |Reported by: WADE MARTÍNEZ MD | | | |Electronically signed by: WADE MARTÍNEZ MD | | | |Transcribed Date/Time: 01/01/2019 13:49 | |Director Of Student Aid: FLUENCY | | | | | | [...]
--- OUTSIDE RECORDS SUMMARY | ~2020-05-06 | XMS | Encounter Summary ---
Demographics + + + | Address | GENERAL DELIVERY | | | [place] [address] | + + + | Home Phone [...] [place] | | | | | [address] | | + + + + + Care Team Providers + +------+ + | Care Souvenir Assembler Name | Role | Phone | + +------+ + | Herbert Marie MD,MPH | PCP | Unavailable | + +------+ + Reason for Visit + + + | Reason | Comments | + + + | Refill Request | Atorvastatin | + + + Encounter Details +--------+--------+ + + + | Date | Type | Department | Care Team | Description | +--------+--------+ + + + | 01/16/ | Refill | [facility] | Herbert Marie, | Refill Request | | 2017 | | Medicine [address] | ,MPH | (Atorvastatin) | | | | [address] [place], | | | | | | [place] [address] | | | | | | [phone] | | | +--------+--------+ + + + [...] Diagnosis | + + | Mixed hyperlipidemia | + + documented in this encounter"
--- OUTSIDE RECORDS SUMMARY | ~2020-05-06 | XMS | Encounter Summary ---
Demographics + + + | Address | GENERAL DELIVERY | | | [place] [address] | + + + | Home Phone [...] [place] | | | | | [address] | | + + + + + Care Team Providers + +------+ + | Care Senior Marketing Manager Name | Role | Phone | [...] | | | | | hemorrhoids | [address] | [address] | | | | | | [place], | [place] | | | | | | [place] [address] | [address] | | | | | | Phone: | Phone: | | | | | | [phone] | [phone] | | | | | | Fax: | Fax: | | | | | | [phone] | [phone] | +--------+--------+ + + + + Encounter Details +--------+---------+ + + + | Date | Type | Department | Care Team | Description | +--------+---------+ + + + | 09/09/ | Office | [facility] | [place] | Thrombod | | 2018 | Visit | Surgery Clinic [address] | Angel Woodall MD [address] | hemorrhoids (Primary | | | | [address] | [address] | Dx) | | | | [place], [place] | [place], [place] | | | | | [address] | [address] | | | | | [phone] | [phone] | | | | | | | [...] other systems reviewed and are negative. A Fire Department Battalion Chief was offered to the patient and declined. [...]
--- OUTSIDE RECORDS SUMMARY | ~2020-05-06 | XMS | Encounter Summary ---
Demographics + + + | Address | GENERAL DELIVERY | | | [place] [address] | + + + | Home Phone [...] [place] | | | | | [address] | | + + + + + Care Team Providers + +------+ + | Care Supervisor Dials Name | Role | Phone | + [...] encounter | | | | [address] [place], | [place], [place] | (Primary Dx) | | | | [place] [address] | [address] | | | | | [phone] | [phone] | | | | | | | [...] with Follow-up visit Pt is here for [facility] ER f/u for low back pain. States [...] back strain. Signed, Miguel A Peraza PA-C [facility] Family Medicine Patient Instructions 1. I recommend [...]
--- OUTSIDE RECORDS SUMMARY | ~2020-05-06 | XMS | Encounter Summary ---
Demographics + + + | Address | GENERAL DELIVERY | | | [place] [address] | + + + | Home Phone [...] [place] | | | | | [address] | | + + + + + Care Team Providers + +------+ + | Care Subway Car Repairer Name | Role | Phone | + +------+ + | Viloeta Parker DO | PCP | | + +------+ + Encounter Details +--------+ + + + + | Date | Type | Department | Care Team | Description | +--------+ + + + + | 09/08/ | Document-Sc | [facility] | [place], | | | 2018 | [place] | Surgery Clinic [address] | Angel Woodall MD [address] | | | | | E The | E The | | | | | [place], [place] | [place], [place] | | | | | [address] | [address] | | | | | [phone] | [phone] | | | | | | | [...]
--- OUTSIDE RECORDS SUMMARY | ~2020-05-06 | XMS | Encounter Summary ---
Demographics + + + | Address | GENERAL DELIVERY | | | [place] [address] | + + + | Home Phone [...] [place] | | | | | [address] | | + + + + + Care Team Providers + +------+ + | Care Patrol Judge Name | Role | Phone | + [...] [place] | | | | | | [address] | | | | | | [phone] | | | | | | | [...] + + + | BANDS % | OPERATIONAL RISK ANALYST | 0 - 7 % | [facility] [...] | + + + + + | [facility] | And | [place], [place] | | | [facility] | Streets | [address] | | + + + + + COMPLETE METABOLIC SET (NA,K,CL,CO2,BUN,CREAT,GLUC,CA,AST,ALT,BILI TOTAL,ALK PHOS,ALB,PROT TOTAL) (08/16/2011 11:30 PM PST) + +---------+ + + + | Component | Value | Ref Range | Performed | Pathologist | | | | | At | Signature | + +---------+ + + + | SODIUM, | 142 | 137 - 146 MEQ/L | [facility] | | | PLASMA | [...] | | MEDICAL CENTER | Streets | [address] | | + + + + + [...] | [facility] | [address] | [place], [place] | | | MEDICAL CENTER | Streets | [address] | | + + + + + documented in this encounter Visit Diagnoses Not on filedocumented in this encounter"
--- OUTSIDE RECORDS SUMMARY | ~2020-05-06 | XMS | Encounter Summary ---
Demographics + + + | Address | GENERAL DELIVERY | | | [place] [address] | + + + | Home Phone [...] [place] | | | | | [address] | | + + + + + Care Team Providers + +------+ + | Care Dip Stand Loader Name | Role | Phone | + +------+ + | Miguel A Peraza PA-C | PCP | | + +------+ + Encounter Details +--------+ + + + + | Date | Type | Department | Care Team | Description | +--------+ + + + + | 03/12/ | Orders Only | [facility] | Miguel A Peraza PA-C | Mixed | | 2018 | | Medicine [address] | [address] | hyperlipidemia; | | | | [address] [place], | [place], [place] | Prediabetes | | | | [place] [address] | [address] | | | | | [phone] | | | | | | | [...] LIPID SET (TRIG, T | Routin | 03/12/2018 | Mixed | Results for this | | CHOL, HDL, CALC LDL) | e | 3:15 PM | hyperlipidemia | procedure are in the | | | | PDT | | results section. | + +--------+ + + + | HEMOGLOBIN A1C, | Routin | 03/12/2018 | Prediabetes | Results for this | | BLOOD | e | 3:15 PM | | procedure are in the | | | | PDT | | results section. | + +--------+ + + + documented in this encounter Results HEMOGLOBIN A1C, BLOOD (03/12/2018 3:15 PM PDT) [...] | ESTIMATED | 117 | mg/dL | [facility] | | | [...] Diabetic Ranges per DCCT & ADA: | [facility] | | Normal Range: <6% [facility] | | Good Control: <7% | | | Additional action suggested: >8% Non-Diabetic | | | Ranges: 4-6% Residential Roofer Helper's Glycohemoglobin | | | Diabetic Ranges: Normal Range: | | | 4.0-6.0% Good Control: | | | 6.0-8.0% Poor Control: | | | >8.0% | | + + + + + + + + | Performing | Address | City/State/Zipcode | Phone Number | | Organization | | | | + + + + + | [facility] | And | [place], [place] | [phone] | | MEDICAL CENTER | Streets | [address] | | + + + + + LIPID SET (TRIG, T CHOL, HDL, CALC LDL) (03/12/2018 3:15 PM PDT) + +---------+ + + + | Component | Value | Ref Range | Performed | Pathologist | | | | | At | Signature | + +---------+ + + + | CHOLESTEROL | 304 (H) | 101 - 199 mg/dL | [facility] | | | (LAB) | [...] a level 30 mg/dL higher than | [facility] | | that for LDL cholesterol. Cardiac Risk Ratio Interpretation: | [facility] | | Interpretation Cardiac Risk [...] [facility] | And | [place], [place] | [phone] | | [facility] | Streets | [address] | | + + + + + documented in this encounter Visit Diagnoses + + | Diagnosis | + + | Mixed hyperlipidemia | + + | Prediabetes Other abnormal glucose | + + documented in this encounter"
--- OUTSIDE RECORDS SUMMARY | ~2020-05-06 | XMS | Encounter Summary ---
Demographics + + + | Address | GENERAL DELIVERY | | | [place] [address] | + + + | Home Phone [...] Author + + + | Author | [facility] | + + + | Organization | [facility] | + + + | Address | Unknown | + + + | Phone | Unavailable | + + + Support + + + + + | Name | Relationship | Address | Phone | + + + + + | Neda Castañeda | ECON | [place] | | | | | [address] | | + + + + + Care Team Providers + +------+ + | Care Principal Statistical Scientist Name | Role | Phone | [...] | Post-concuss | [address] | | | | | ion vertigo | St [address] | [place], | | | | | Procedures | [place] | [place] [address] | | | | | PHYSICAL | [address] | Phone: | | | | | THERAPY | Phone: | [phone] | | | | | REFERRAL | [phone] | Fax: | | | | | | Fax: | [phone] | | | | | | [phone] | | +--------+--------+ + + + + [...] Dx) | | | | [address] [place], | [place], [place] | | | | | [place] [address] | [address] | | | | | [phone] | | | | | | | [...] here to follow up after visiting [facility] 11[facility]18[facility]16. He was [...] vertigo symptoms Signed, Miguel A Tian PA-C [facility] Family Medicine ieusebio, TEJAL Sherman - 11/22/2016 3:00 PM PST Mendez Castañeda is a 41 y.o. male who is in clinic today accompanied by spouse. Patient h ere for ER fu for head injury. Still having dizziness. 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
--- OUTSIDE RECORDS SUMMARY | ~2020-05-06 | XMS | Encounter Summary ---
Demographics + + + | Address | GENERAL DELIVERY | | | [place] [address] | + + + | Home Phone [...] [place] | | | | | [address] | | + + + + + Care Team Providers + +------+ + | Care Airplane And Engine Inspector Name | Role | Phone | + [...] Chart Abstract | | 2015 | | [facility] | [facility] | | | | | Clinic [address] | | | | | St [place], [place] | | | | | | [address] | | | | | | [phone] | | | +--------+ + + + [...]
--- OUTSIDE RECORDS SUMMARY | ~2020-05-06 | XMS | Encounter Summary ---
Demographics + + + | Address | GENERAL DELIVERY | | | [place] [address] | + + + | Home Phone [...] [place] | | | | | [address] | | + + + + + Care Team Providers + +------+ + | Care Meter Reader Name | Role | Phone | + [...] | Hospital [address] | DO [address] | | | | | [place], | [place] [address] | | | | | [place] [address] | [phone] | | | | | [phone] | | | +--------+ + + + [...] | + + + | [address] [place] [address] | [facility] | | [place], [place] [address] [place] [address] | | [phone] Name: CHUCK SANTOS Phys: | RADIOLOGY | | ILIANA JAVED : 1975 Sex: M | | | CSN: [id number] MR# [id number] Exam Date: | | | 09/03/2018 EXAM: [...] Transcribed | | | Date/Time: 09/03/2018 18:00 Polish Compounder: VAL | | + + + + + | Procedure Note | + + | Interface, Radiology Results - 09/03/2018 6:05 PM PST [address] | | [address] [place] [address] | | Name: CHUCK SANTOS Phys: LEATHACAMERONRADHAILIANA M : 1975 Sex: M | | CSN: [id number] MR# [id number] Exam Date: 09/03/2018 EXAM:SCROTAL ULTRASOUND | | [...] | | |Transcribed Date/Time: 09/03/2018 18:00 | |Polish Compounder: FLUENCY | | | | | | [...]
--- OUTSIDE RECORDS SUMMARY | ~2020-05-06 | XMS | Encounter Summary ---
Demographics + + + | Address | GENERAL DELIVERY | | | [place] [address] | + + + | Home Phone [...] [place] | | | | | [address] | | + + + + + Care Team Providers + +------+ + | Care Delivery Man Name | Role | Phone | + +------+ + | Miguel A Peraza PA-C | PCP | | + +------+ + Encounter Details +--------+------+ + + + | Date | Type | Department | Care Team | Description | +--------+------+ + + + | 03/12/ | Lab | Laboratory at [facility] | | | | 2018 | | Family Medicine | | | | | | [address] [place] [address] | | | | | | [place] | | | | | | [address] | | | | | | [phone] | | | +--------+------+ + + + [...]
--- OUTSIDE RECORDS SUMMARY | ~2020-05-06 | XMS | Encounter Summary ---
Demographics + + + | Address | GENERAL DELIVERY | | | [place] [address] | + + + | Home Phone | | + + + | Preferred Language | Unknown | + + + | Marital Status | Single | + + + | Jehovah'S Witness Affiliation | NRP | + + + [...] [place] | | | | | [address] | | + + + + + Care Team Providers + +------+ + | Care Salesperson Men'S Furnishings Name | Role | Phone | + [...] hyperlipidemia; | | | | [address] [place], | [place], [place] | Prediabetes | | | | [place] [address] | [address] | | | | | [phone] | [phone] | | | | | | | [...] Diabetic Ranges per DCCT & ADA: | [facility] | | Normal Range: <6% [facility] | | Good Control: <7% | | | Additional action suggested: >8% Non-Diabetic | | | Ranges: 4-6% Visual Basic Programmer's Glycohemoglobin | | | Diabetic Ranges: Normal Range: | | | 4.0-6.0% Good Control: | | | 6.0-8.0% Poor Control: | | | >8.0% | | + + + + + + + + | Performing | Address | City/State/Zipcode | Phone Number | | Organization | | | | + + + + + | [facility] | And | [place], [place] | [phone] | | MEDICAL CENTER | Streets | [address] | | + + + + + LIPID SET (TRIG, T CHOL, HDL, CALC LDL) (03/12/2018 3:15 PM PDT) + +---------+ + + + | Component | Value | Ref Range | Performed | Pathologist | | | | | At | Signature | + +---------+ + + + | CHOLESTEROL | 304 (H) | 101 - 199 mg/dL | [facility] | | | (LAB) | [...] a level 30 mg/dL higher than | [facility] | | that for LDL cholesterol. Cardiac Risk Ratio Interpretation: | [facility] | | Interpretation Cardiac Risk Ratio Below Average | | | Risk 0.0 - 3.4 Above Average Risk | | | 3.5 - 4.9 | | + + + + + + + + | Performing | Address | City/State/Zipcode | Phone Number | | Organization | | | | + + + + + | [facility] | And | [place], [place] | [phone] | | [facility] | Streets | [address] | | + + + + + documented in this encounter Visit Diagnoses + + | Diagnosis | + + | Mixed hyperlipidemia | + + | Prediabetes Other abnormal glucose | + + documented in this encounter"
--- OUTSIDE RECORDS SUMMARY | ~2020-05-06 | XMS | Encounter Summary ---
Demographics + + + | Address | GENERAL DELIVERY | | | [place] [address] | + + + | Home Phone [...] [place] | | | | | [address] | | + + + + + Care Team Providers + +------+ + | Care Ocean Rescue Lieutenant Name | Role | Phone | + [...] 2010 | Only | [address] | [phone] | | | | | [address] | | | | | | [address] | | | +--------+ + + + [...] + + | [facility] [address] | [place], [place] | | | [facility] | Streets | [address] | | + + + + + [...] + + + | BANDS % | WATER TAXI DRIVER | 0 - 7 % | [facility] [...] | + + + + + | [facility] | And | [place], [place] | | | [facility] | Streets | [address] | | + + + + + [...] + + + | [facility] | [address] [place] | [place], [place] | | | [facility]ICAL [facility]ENTER | Streets | [address] | | + + + + + COMPLETE METABOLIC SET (NA,K,CL,CO2,BUN,CREAT,GLUC,CA,AST,ALT,BILI TOTAL,ALK PHOS,ALB,PROT TOTAL) (06/30/2011 4:40 PM PDT) + +--------+ + + + | Component | Value | Ref Range | Performed | Pathologist | | | | | At | Signature | + +--------+ + + + | SODIUM, | 142 | 137 - 146 MEQ/L | [facility] | | | PLASMA | | | A MEDICAL | | | (LAB) | | | CENTER | | + +--------+ + + + | POTASSIUM, | 4.1 | 3.5 - 5.2 MEQ/L | [facility] | | | PLASMA | | [...] | ESTIMATED | 93.1 | >60 | [facility] | | | GFR | | | A MEDICAL | | | | | | CENTER | | + +--------+ + + + | FASTING? | UNK | HR | [facility] | | | | | [...] + + + + | [facility] | And | [place] | | | [facility] | [facility] | [address] | | + + + + + documented in this encounter Visit Diagnoses Not on filedocumented in this encounter"
--- OUTSIDE RECORDS SUMMARY | ~2020-05-06 | XMS | Encounter Summary ---
Demographics + + + | Address | GENERAL DELIVERY | | | [place] [address] | + + + | Home Phone [...] [place] | | | | | [address] | | + + + + + Care Team Providers + +------+ + | Care U.[place]. Senator Name | Role | Phone | + [...] | | adenomatous | [place], [place] | [address] | | | | | polyp of | [address] | Phone: | | | | | colon | Phone: | [phone] | | | | | Thrush | [phone] | Fax: | | | | | Procedures | Fax: | [phone] | | | | | REQUEST TO | [phone] | | | | | | SURGERY | | | | | | | INSURANCE SERVICE REPRESENTATIVE | | | | | | | [place] | | | | | | | COLONOSCOPY, | | | | | | | DIAG INCL | | | | | | | SPEC COLLEC | | | | | | | [place] | | | | | | | COLONOSCOPY, | | | | | | | REMV FOREIGN | | | | | | | BODY(S) [place] | | | | | | | | | | | | | | COLONOSCOPY, | | | | | | | FLEX, | | | | | | | W/BIOPSY [place] | | | | | | | | | | | | | | COLONOSCPY,F | | | | | | | NIVIA,W/DIR | | | | | | | SUBMUC | | | | | | | INJECT [place] | | | | | | | COLONOSCOPY, | | | | | | | FLEX,W/CONTR | | | | | | | OL BLEED ANY | | | | | | | METHOD [place] | | | | | | | COLONOSCOPY, | | | | | | | FLEX, W | | | | | | | REMV LESN BY | | | | | | | HOT BIOPSY | | | | | | | FORCEP [place] | | | | | | | COLONOSCOPY, | | | | | | | REMV LESN BY | | | | | | | SNARE | | | | | | | TECHNIQUE | | | | | | | [place] | | | | | | | COLONOSCOPY, | | | | | | | FLEX W | | | | | | | TRANSENDOSCO | | | | | | | PIC BALLOON | | | | | | | DILAT [place] | | | | | | | [...] | | | | | | | [place] | | | | | | | COLONOSCOPY, | | | | | | | FLEXIBLE; W | | | | | | | ENDOSCOPIC | | | | | | | STENT | | | | | | | PLACEMENT | | | | | | | [place] | | | | | | | COLONOSCOPY, | | | | | | | FLEXIBLE; W | | | | | | | ENDOSCOPIC | | | | | | | MUCOSAL | | | | | | | RESECTION | | | | | | | [place] UPPER GI | | | | | | | ENDOSCOPY,DI | | | | | | | AGNOSIS [place] | | | | | | | UPPER GI | | | | | | | ENDOSCOPY,BI | | | | | | | OPSY [place] UP | | | | | | [...] | + + + | Consultation | EGD, colonoscopy | + + + Consultation (Routine) +--------+--------+ + + + + | Status | Reason | Specialty | Diagnoses / | Referred By | Referred To | | | | | Procedures | Contact | Contact | +--------+--------+ + + + + | Closed | | Surgery | Diagnoses | Elena | Analy Gen | | | | | Right lower | DO Violeta | Surg Mob | | | | | quadrant | [address] | | | | | pain | [address] | [address] | | | | | [place] | [place], | [place] [address] | | | | | stomatitis | [place] [address] | [address] | | | | | | Phone: | Phone: | | | | | | [phone] | [phone] | | | | | | Fax: | Fax: | | | | | | [phone] | [phone] | +--------+--------+ + + + + Encounter Details +--------+---------+ + + + | Date | Type | Department | Care Team | Description | +--------+---------+ + + + | 08/06/ | Office | [facility] | Humberto, | Family history of | | 2018 | Visit | Surgery Clinic [address] | Angel Woodall MD 1809 | colon cancer | | | | E [address] | E The | (Primary Dx); | | | | [place], [place] | [place], [place] | History of | | | | [address] | [address] | adenomatous polyp of | | | | [phone] | [phone] | colon; Thrush; | | | | | | Gastroesophageal | | | | | | reflux disease, | | | | | | esophagitis presence | | | | | | not specified | +--------+---------+ + + + Social History [...] + + + | Blood Pressure | 116/80 | 08/06/2019 1:00 PM | | | | | PST | | + + + + + | Pulse | 69 | 08/06/2019 1:00 PM | | | | | PST [...] Weight | 89.8 kg (198 lb) | 08/06/2019 1:00 PM | | | | | PST | | + + + + + | Height | 162.6 cm (5' 4") | 08/06/2019 1:00 PM | | | | | PST | | + + + + + | Body Mass Index | 33.99 | 08/06/2019 1:00 PM | | | | | PST | | + + + + + documented in this encounter Patient Instructions Patient Instructions Mary Means MA - 08/06/2019 1:00 PM PSTFormatting of this note mi ght be different from the original. Colonoscopy: What to Expect at Home Your Recovery After you have a colonoscopy, you will stay at the clinic for 1 to 2 hours until the medici rene wear off. Then you can go home. But you will need to arrange for a ride. Your doctor haroldo l tell you when you can eat and do your other usual activities. Your doctor will talk to you about when you will need your next colonoscopy. Your doctor ca n help you decide how often you need to be checked. This will depend on the results of your test and your risk for colorectal cancer. After the test, you may be bloated or have gas pains. You may need to pass gas. If a biopsy was done or a polyp was removed, you may have streaks of blood in your stool (feces) for a few days. Problems such as heavy rectal bleeding may not occur until several weeks after the test. This isn't common. But it can happen after polyps are removed. This care sheet gives you a general idea about how long it will take for you to recover. Bu t each person recovers at a different pace. Follow the steps below to get better as quickly as possible. How can you care for yourself at home? Activity Rest when you feel tired. You can do your normal activities when it feels okay to do so. Diet Follow your doctor's directions for eating. Unless your doctor has told you not to, drink plenty of fluids. This helps to replace the fluids that were lost during the colon prep. Do not drink alcohol. Medicines Your doctor will tell you if and when you can restart your medicines. He or she will also give you instructions about taking any new medicines. If you take blood thinners, such as warfarin (Coumadin), clopidogrel (Plavix), or asp irin, be sure to talk to your doctor. He or she will tell you if and when to start taking th ose medicines again. Make sure that you understand exactly what your doctor wants you to do. If polyps were removed or a biopsy was done during the test, your doctor may tell you not to take aspirin or other anti-inflammatory medicines for a few days. These include ibup rofen (Advil, Motrin) and naproxen (Aleve). Other instructions For your safety, do not drive or operate machinery until the medicine wears off and y ou can think clearly. Your doctor may tell you not to drive or operate machinery until the d ay after your test. Do not sign legal documents or make major decisions until the medicine wears off and you can think clearly. The anesthesia can make it hard for you to fully understand what you are agreeing to. Follow-up care is a avery part of your treatment and safety. Be sure to make and go to all ap pointments, and call your doctor if you are having problems. It's also a good idea to know y our test results and keep a list of the medicines you take. When should you call for help? Call 911 anytime you think you may need emergency care. For example, call if: You passed out (lost consciousness). You pass maroon or bloody stools. You have trouble breathing. Call your doctor now or seek immediate medical care if: You have pain that does not get better after you take pain medicine. You are sick to your stomach or cannot drink fluids. You have new or worse belly pain. You have blood in your stools. You have a fever. You cannot pass stools or gas. Watch closely for changes in your health, and be sure to contact your doctor if you have any problems. Where can you learn more? To learn more about "Colonoscopy: What to Expect at Home", log into your ActiveRain account at [email or web address]. You can enter E264 in the "[employer] Library" search box. Not on ActiveRain? Review the ActiveRain section of your After Visit Summary for directions on ho w to sign up. Current as of: September 17, 2018 Content Version: [id number] Dot. Care instructions adapted under license by [facility] [employer] & [facility]. If you have questions about a medical condition or this instr uction, always ask your healthcare professional. Dot disclaims any nina anty or liability for your use of this information. Upper GI Endoscopy: Before Your Procedure What [...] monitor (like a TV set or a QA on Request er screen) as he or she moves [...] living will and a durable power of plastic die maker apprentice for health care. Bring a copy to [...] apply lotions, pe rfumes, deodorants, or nail gabonese. Take off all jewelry and piercings. And [...] Endoscopy: Before Your Procedure", log into your ActiveRain acco unt at [email or web address]. You can enter P790 in the "M[employer] Library" search box. Not on ActiveRain? Review the ActiveRain section of your After Visit Summary for directions on booker cardoza to sign up. Current as of: August 06, 2018 Content Version: [id number] Dot. Care instructions adapted under license by [facility] [place]. If you have questions about a medical condition or this instr uction, always ask your healthcare professional. Dot disclaims any nina anty or liability for your use of this information. documented in this encounter Progress Notes Angel Paul MD - 08/06/2019 1:00 PM PSTFormatting of this note might be differe nt from the original. Chief Complaint: Chief Complaint Patient presents with Consultation EGD, colonoscopy History of Present Illness: 44 year old man with a history of tubular adenoma on colonoscopy about 5 years ago. He has a family history of colon cancer, and pancreatic cancer. He has recently been treated for thrush. The patient denies unintentional weight loss. The patient denies a change in bowel habits or stool caliber. He denies dysphagia, or difficulty swallowing. His previous EGD d emonstrated mild gastritis and duodenitis, though pathology was normal. Past Medical History Past Medical History: Diagnosis [...] spine surgery 01/22/2012 anterior cervical discectomy C6-C7 [facility] Laminotomy of cervical vertebra with nerve [...] mouth once daily., Disp : , Rfl: oxymetazoline 0.05 % nasal spray,non-aerosol, Instill 2 sprays into each nostril two times daily. Use for only 3 days., Disp: 15 mL, Rfl: 0 promethazine 25 mg oral tablet, , Disp: , Rfl: 0 sodium chloride 0.65 % nasal aerosol,spray, Instill 2 sprays into each nostril as needed. I ndications: stuffy nose, Disp: 30 mL, Rfl: 0 sodium, potassium, magnesium sulfates 17.5-3.13-1.6 gram oral recon soln, Take 1 Container by mouth two times daily for 2 doses., Disp: 354 mL, Rfl: 0 tiZANidine 4 mg oral tablet, [...] Last attempt to quit: 03/08/2015 Years since quittin.4 Smokeless tobacco: Never Used Substance and Sexual Activity Alcohol use: No Alcohol/week: 0.0 standard drinks Drug use: Yes Types: Smoke Comment: marijuana sometimes Sexual activity: Not on file Comment: vasectomy Lifestyle Physical activity: Days per week: Not on file Minutes per session: Not on file Stress: Not on file Relationships Social connections: Talks on phone: Not on file Gets together: Not on file Attends anabaptism service: Not on file Active member of club or organization: Not on file Attends meetings of clubs or organizations: Not on file Relationship status: Not on file Other Topics Concern Not [...] Negative for chest pain and palpitations. Gastrointestinal: Positive for heartburn and nausea. Negative for abdominal pain, blood in stool, constipation, diarrhea and vomiting. Genitourinary: Negative. Musculoskeletal: Negative for back pain, joint pain and neck pain. Skin: Negative. Neurological: Negative for dizziness, tingling, weakness and headaches. Endo/Heme/Allergies: Does not bruise/bleed easily. Psychiatric/Behavioral: Negative for depression. The patient is not nervous/anxious and houser s not have insomnia. All other systems reviewed and are negative. Vitals BP 116/80 (BP Location: Left upper arm, Patient Position: Sitting) | Pulse 69 | Ht 1.626 m (5' 4") | Wt 89.8 kg (198 lb) | BMI 33.99 kg/m | BSA 2.01 m Physical Examination Gen- NAD HEENT- GAGE, MMM Resp- CTA B CV- RRR Abd- soft NTND Ext- No edema Neuro- No deficits Assessment/Plan Mendez was seen today for consultation. Diagnoses and all orders for this visit: Family history of colon cancer - REQUEST TO SERVER SYSTEMS ADMINISTRATOR History of adenomatous polyp of colon - REQUEST TO SERVER SYSTEMS ADMINISTRATOR Thrush - REQUEST TO SERVER SYSTEMS ADMINISTRATOR Other orders - sodium, potassium, magnesium sulfates 17.5-3.13-1.6 gram oral recon soln; Take 1 Cont ainer by mouth two times daily for 2 doses. 44-year-old man with a history GERD, oral thrush, and family history of colon cancer. The patient would benefit from an EGD and colonoscopy. The patient was counseled on the indicat ions, benefits, and risks of the procedure, including missed lesions, and perforation. The patient was provided a handout and all questions were answered. No follow-ups on file. Mary Yo MA - 08/06/2019 1:00 PM PST Review of Systems Constitutional: Negative for chills, fever, malaise/fatigue and weight loss. HENT: Negative for congestion. Respiratory: Negative for shortness of breath and wheezing. Cardiovascular: Negative for chest pain and palpitations. Gastrointestinal: Positive for heartburn and nausea. Negative for abdominal pain, blood in stool, constipation, diarrhea and vomiting. Genitourinary: Negative. Musculoskeletal: Negative for back pain, joint pain and neck pain. Skin: Negative. Neurological: Negative for dizziness, tingling, weakness and headaches. Endo/Heme/Allergies: Does not bruise/bleed easily. Psychiatric/Behavioral: Negative for depression. The patient is not nervous/anxious and houser s not have insomnia. All other systems reviewed and are negative. A Veneer Measurer was offered to the patient and declined. Does patient admit to have fallen in the last 3 months: no Does patient use walking device: no documented in this enc ounter Plan of Treatment Not on filedocumented as of this encounter Visit Diagnoses + + | Diagnosis | + + | Family history of colon cancer - Primary Family history of malignant neoplasm of | | gastrointestinal tract | + + | History of adenomatous polyp of colon Personal history of colonic polyps | + + | Thrush Candidiasis of mouth | + + | Gastroesophageal reflux disease, esophagitis presence not specified | + + documented in this encounter
--- OUTSIDE RECORDS SUMMARY | ~2020-05-06 | XMS | Encounter Summary ---
Demographics + + + | Address | [address] | | | [place] [address] | + + + | Home Phone [...] [place] | | | | | [address] | | + + + + + Care Team Providers + +------+ + | Care Concert Manager Name | Role | Phone | [...]
--- OUTSIDE RECORDS SUMMARY | ~2020-05-06 | XMS | Encounter Summary ---
Demographics + + + | Address | [address] | | | [place] [address] | + + + | Home Phone [...] [place] | | | | | [address] | | + + + + + Care Team Providers + +------+ + | Care Operations Supervisor Name | Role | Phone | + +------+ + | Herbert Marie MD,MPH | PCP | Unavailable | + +------+ + Encounter Details +--------+ + + + + | Date | Type | Department | Care Team | Description | +--------+ + + + + | 01/22/ | Document-Sc | [facility] | Herbert Marie, | | | 2017 | anned | Medicine [address] | ,MPH | | | | | [address] [place], | | | | | | [place] [address] | | | | | | [phone] | | | +--------+ + + + [...]
--- OUTSIDE RECORDS SUMMARY | ~2020-05-06 | XMS | Encounter Summary ---
Demographics + + + | Address | [address]ERY | | | [place] [address] | + + + | Home Phone [...] [place] | | | | | [address] | | + + + + + Care Team Providers + +------+ + | Care Washer Cutter Name | Role | Phone | [...] | | | | | [address] [place], | [place] | | | | | [place] [address] | [address] | | | | | [phone] | [phone] | | | | | | | [...]
--- OUTSIDE RECORDS SUMMARY | ~2020-05-06 | XMS | Encounter Summary ---
Demographics + + + | Address | [address] DELIVERY | | | [place] [address] | + + + | Home Phone [...] Author + + + | Author | [facility] | + + + | Organization | [facility] | + + + | Address | Unknown | + + + | Phone | Unavailable | + + + Support + + + + + | Name | Relationship | Address | Phone | + + + + + | Neda Castañeda | ECON | [place] | | | | | [address] | | + + + + + Care Team Providers + +------+ + | Care Washer Operator Name | Role | Phone | [...] | | | | | | [place] [address] | | | | | | [phone] | | | +--------+ + + + [...]
--- OUTSIDE RECORDS SUMMARY | ~2020-05-06 | XMS | Encounter Summary ---
Demographics + + + | Address | [address] | | | [place] [address] | + + + | Home Phone [...] [place] | | | | | [address] | | + + + + + Care Team Providers + +------+ + | Care Crusher Dry Ground Mica Name | Role | Phone | + [...] | | adenomatous | [place], [place] | [address] | | | | | polyp of | [address] | Phone: | | | | | colon | Phone: | [phone] | | | | | Thrush | [phone] | Fax: | | | | | Procedures | Fax: | [phone] | | | | | REQUEST TO | [phone] | | | | | | SURGERY | | | | | | | IUSS MASTER ANALYST | | | | | | | [place] | | | | | | | COLONOSCOPY, | | | | | | | DIAG INCL | | | | | | | SPEC COLLEC | | | | | | | [place] | | | | | | | COLONOSCOPY, | | | | | | | REMV FOREIGN | | | | | | | BODY(S) [place] | | | | | | | | | | | | | | COLONOSCOPY, | | | | | | | FLEX, | | | | | | | W/BIOPSY [place] | | | | | | | | | | | | | | COLONOSCPY,F | | | | | | | NIVIA,W/DIR | | | | | | | SUBMUC | | | | | | | INJECT [place] | | | | | | | COLONOSCOPY, | | | | | | | FLEX,W/CONTR | | | | | | | OL BLEED ANY | | | | | | | METHOD [place] | | | | | | | COLONOSCOPY, | | | | | | | FLEX, W | | | | | | | REMV LESN BY | | | | | | | HOT BIOPSY | | | | | | | FORCEP [place] | | | | | | | COLONOSCOPY, | | | | | | | REMV LESN BY | | | | | | | SNARE | | | | | | | TECHNIQUE | | | | | | | [place] | | | | | | | COLONOSCOPY, | | | | | | | FLEX W | | | | | | | TRANSENDOSCO | | | | | | | PIC BALLOON | | | | | | | DILAT [place] | | | | | | | [...] | | | | | | | [place] | | | | | | | COLONOSCOPY, | | | | | | | FLEXIBLE; W | | | | | | | ENDOSCOPIC | | | | | | | STENT | | | | | | | PLACEMENT | | | | | | | [place] | | | | | | | COLONOSCOPY, | | | | | | | FLEXIBLE; W | | | | | | | ENDOSCOPIC | | | | | | | MUCOSAL | | | | | | | RESECTION | | | | | | | [place] UPPER GI | | | | | | | ENDOSCOPY,DI | | | | | | | AGNOSIS [place] | | | | | | | UPPER GI | | | | | | | ENDOSCOPY,BI | | | | | | | OPSY [place] UP | | | | | | [...] | 2019 | Encounter | Department at [facility] | Angel Woodall MD [address] | | | | | Hospital [address] | | | | [address] [place], | [place], [place] | | | | | [place] [address] | [address] | | | | | [phone] | | | | | | | [...] than 101 degrees F.) Difficulty breathing [facility] [phone] documented in this encounter Medications at Time [...] | 09/09/2019 at | | | Code: 45385 | | | 2:46 PM | | | | | | | | |CPT Code: 91197 | | | | + + + [...] + + | [facility] | [address] | [place] | [phone] | | [facility] | [facility] | [address] | | + + + + + [...]
--- OUTSIDE RECORDS SUMMARY | ~2020-05-06 | XMS | Encounter Summary ---
Demographics + + + | Address | [address] DELIVERY | | | [place] [address] | + + + | Home Phone [...] + | Neda Santos | ECON | [place] | | | | | [address] | | + + + + + Care Team Providers + +------+ + | Care Greenskeeper Supervisor Name | Role | Phone | [...] | | | | | without | [place], | [address] | | | | | rupture | [place] [address] | Phone: | | | | | ([facility]) | Phone: | [phone] | | | | | Procedures | [phone] | | | | | | CTA CHEST | Fax: | | | | | | WWO CONTRAST | [phone] | | +--------+--------+ + + + + Encounter Details +--------+ + + + + | Date | Type | Department | Care Team | Description | +--------+ + + + + | 03/24/ | Transcribe | [facility] | Iliana Parker, | | | 2019 | Orders | [facility] [address] | DO [address] | | | | | [address] | [place] [address] | | | | | [place] | [phone] | | | | | [address] | | | +--------+ + + + [...] | + + + | [address] [place] [address] | [facility] | | [place] [address] | [facility] | | [phone] Name: CHUCK SANTOS Phys: | RADIOLOGY | | TELLOILIANA M : 1975 Sex: M | | | CSN: [id number] MR# [id number] Exam Date: | | | 04/30/2019 EXAM: [...] | | | Transcribed Date/Time: 04/30/2019 09:58 Trommel Tender: FLUENCY | | | | | + + + + + | Procedure Note | + + | Interface, Radiology Results - 04/30/2019 10:03 AM PDT [address] | | [address] [place] [address] | | Name: CHUCK SANTOS Phys: ILIANA JAVED : 1975 Sex: M | | CSN: [id number] MR# [id number] Exam Date: 04/30/2019 EXAM:CTA CHEST COMBINED | [...] | | |Transcribed Date/Time: 04/30/2019 09:58 | |Trommel Tender: FLUENCY | | | | | | [...]
--- OUTSIDE RECORDS SUMMARY | ~2020-05-06 | XMS | Encounter Summary ---
Demographics + + + | Address | GENERAL DELIVERY | | | [place] [address] | + + + | Home Phone | | + + + | Preferred Language | Unknown | + + + | Marital Status | Single | + + + | Sikhism Affiliation | NRP | + + + [...] [place] | | | | | [address] | | + + + + + Care Team Providers + +------+ + | Care Airport Operations Supervisor Name | Role | Phone | + +------+ + | Herbert Marie MD,MPH | PCP | Unavailable | + +------+ + Encounter Details +--------+ + + + + | Date | Type | Department | Care Team | Description | +--------+ + + + + | 02/27/ | Document-Sc | [facility] | Herbert Marie, | | | 2017 | anned | Medicine [address] | ,[facility]H | | | | | [address] [place], | | | | | | [place] [address] | | | | | | [phone] | | | +--------+ + + + [...]
--- OUTSIDE RECORDS SUMMARY | ~2020-05-06 | XMS | Encounter Summary ---
Demographics + + + | Address | [address] DELIVERY | | | [place] [address] | + + + | Home Phone [...] [place] | | | | | [address] | | + + + + + Care Team Providers + +------+ + | Care Gusset Edger Name | Role | Phone | + [...] E | | | | | | [place], | | | | | | [place] [address] | | | | | | [phone] | | | +--------+ + + + [...]
--- OUTSIDE RECORDS SUMMARY | ~2020-05-06 | XMS | Encounter Summary ---
Demographics + + + | Address | GENERAL DELIVERY | | | [place] [address] | + + + | Home Phone [...] [place] | | | | | [address] | | + + + + + Care Team Providers + +------+ + | Care Dry Cell Tester Name | Role | Phone | [...] | | 2015 | | Department at [facility] | [address] | | | | | Hospital [address] | [place], [place] | | | | | [place], | [address] | | | | | [place] [address] | [phone] | | | | | [phone] | | | +--------+ + + + [...] about "Gastroenteritis: Care Instructions", log into your Brightcove account at [email or web address]. You can enter N142 in the [employer]" search box. Not on Brightcove? Review the MyChart section of your After Visit Summary for directions on ho w to sign up. [phone] wufoo. Care instructions adapted under license by [facility] [employer]. This care instruction is for use with your licensed healthcar e professional. If you have questions about a medical condition or this instruction, always ask your healthcare professional. wufoo disclaims any warranty or liabili ty for your use of this information. Content Version: 10.7.365105; Current as of: February 18, 2015 Nausea [...] and Vomiting: Care Instructions", log into your Brightcove account at [email or web address]. You can enter H591 in the [employer]" search box. Not on Brightcove? Review the [employer] section of your After Visit Summary for directions on booker cardoza to sign up. [id number] wufoo. Care instructions adapted under license by [facility], [facility] & [facility]. This care instruction is for use with your licensed healthcar e professional. If you have questions about a medical condition or this instruction, always ask your healthcare professional. wufoo disclaims any warranty or liabili ty for your use of this information. Content Version: 10.7.859647; Current as of: February 18, 2015 AttachmentsThe following attachments cannot be sent through Care Everywhere.CLEAR LIQUID DI ET: GENERAL INFO (SAMOAN)documented in this encounter Medications at Time of [...] | + + + + + | [facility] | [address] | [place], [place] | [phone] | | MEDICAL CENTER | Streets | [address] | | + + + + + BASIC METABOLIC SET (NA, K, CL, TCO2, BUN, CR, GLU, CA) (11/14/2015 5:35 PM PST) + +---------+ + + + | Component | Value | Ref Range | Performed | Pathologist | | | | | At | Signature | + +---------+ + + + | GLUCOSE, | 129 (H) | 70 - 105 mg/dL | [facility] | | | PLASMA | | | A MEDICAL | | | (LAB) | | | CENTER | | + +---------+ + + + | BUN, PLASMA | 13 | 6 - 26 mg/dL | [facility] | | | (LAB) | [...] | | A MEDICAL | | | PANAMANIAN | | | CENTER | | + [...] + + | [facility] | [address] | [place] | [phone] | | MEDICAL CENTER | Streets | [address] | | + + + + + [...]
--- OUTSIDE RECORDS SUMMARY | ~2020-05-06 | XMS | Encounter Summary ---
Demographics + + + | Address | GENERAL DELIVERY | | | [place] [address] | + + + | Home Phone [...] [place] | | | | | [address] | | + + + + + Care Team Providers + +------+ + | Care Director Franchise Sales Name | Role | Phone | + [...]
--- OUTSIDE RECORDS SUMMARY | ~2020-05-06 | XMS | Encounter Summary ---
Demographics + + + | Address | GENERAL DELIVERY | | | [place] [address] | + + + | Home Phone [...] [place] | | | | | [address] | | + + + + + Care Team Providers + +------+ + | Care Universal Grinder Operator Name | Role | Phone | + +------+ + | Violeta Parker DO | PCP | | + +------+ + Encounter Details +--------+ + + + + | Date | Type | Department | Care Team | Description | +--------+ + + + + | 03/12/ | Procedure | Diagnostic Imaging | | | | 2017 | Pass | at [facility] | | | | | | [address] | | | | | | [place] | | | | | | [address] | | | | | | [phone] | | | +--------+ + + + [...]
--- OUTSIDE RECORDS SUMMARY | ~2020-05-06 | XMS | Encounter Summary ---
Demographics + + + | Address | GENERAL DELIVERY | | | [place] [address] | + + + | Home Phone [...] [place] | | | | | [address] | | + + + + + Care Team Providers + +------+ + | Care Global Process Owner Name | Role | Phone | + +------+ + | Violeta Parker DO | PCP | | + +------+ + Encounter Details +--------+------+ + + + | Date | Type | Department | Care Team | Description | +--------+------+ + + + | 03/06/ | Lab | Laboratory at | | Chronic RLQ pain | | 2019 | | [facility] | | | | | | [place] [address] | | | | | | [address] [place] | | | | | | [address] | | | | | | [phone] | | | +--------+------+ + + + [...] | BASIC METABOLIC SET | Routin | 03/06/2019 | Chronic RLQ pain | Results for this | | (NA, K, CL, TCO2, | e | 3:24 PM | | procedure are in the [...] | | A MEDICAL | | | AUSTRIAN | | | CENTER | | + [...] | [facility] | [address] | [place] | [phone] | | [facility] | [place] | [address] | | + + + + + documented in this encounter Visit Diagnoses + + | Diagnosis | + + | Chronic RLQ pain Abdominal pain, right lower quadrant | + + documented in this encounter"
--- OUTSIDE RECORDS SUMMARY | ~2020-05-06 | XMS | Encounter Summary ---
Demographics + + + | Address | GENERAL DELIVERY | | | [place] [address] | + + + | Home Phone [...] [place] | | | | | [address] | | + + + + + Care Team Providers + +------+ + | Care Cableman Name | Role | Phone | + [...] | | | | | [address] [place] [address] The | | | | | | [place] | | | | | | [address] | | | | | | [phone] | | | +--------+------+ + + + [...] | HEMOGLOBIN | 5.5 | % | [facility] | | | A1C | | | A MEDICAL | | | | | | CENTER | | + +-------+ + + + | ESTIMATED | 111 | mg/dL | [facility] | | | AVERAGE | | | [...] per DCCT & ADA: | [facility] | | Normal Range: <6% | [facility] | | Good Control: <7% | | | Additional action suggested: >8% Non-Diabetic | | | Ranges: 4-6% Dental Office Receptionist's Glycohemoglobin | | | Diabetic Ranges: Normal Range: | | | 4.0-6.0% Good Control: | | | 6.0-8.0% Poor Control: | | | >8.0% | | + + + + + + + + | Performing | Address | City/State/Zipcode | Phone Number | | Organization | | | | + + + + + | [facility] | And | [place], [place] | [phone] | | [facility] | [facility] | [address] | | + + + + + documented in this encounter Visit Diagnoses + + | Diagnosis | + + | Prediabetes Other abnormal glucose | + + documented in this encounter"
--- OUTSIDE RECORDS SUMMARY | ~2020-05-06 | XMS | Clinical Summary ---
Demographics + + + | Address | GENERAL DELIVERY | | | [place] [address] | + + + | Home Phone [...] [place], [place] | | | | | [address] | | + + + + + Care Team Providers + +------+ + | Care Accounting Systems Manager Name | Role | Phone | + +------+ + | Violeta Parker DO | PCP | | + +------+ + Source Comments KEVIN is fully live on both [facility] Ambulatory and [facility] InPatient.[facility] Allergies + + + + + [...] chickenpox - will need Varivax | | a0VXDZAOVYO ZOSTER IGG index < [place] = 0.90 [...] MEDICARE | MEDICA | xxxxxxxxxxx | | [id number] | [address] | Medica | | | RE A & | | [phone] | [address] | | | B | | esent | | [place] | | | | | | | | [address] | | + +--------+ +--------+ + +--------+ | FURNACE UNLOADER MEDICAID | FURNACE UNLOADER | xxxxxxxxxxx | 09/30/19 | | | [...] | | | | | | | [address] | | + +--------+ +--------+ + +--------+ | FURNACE UNLOADER MEDICAID | FURNACE UNLOADER | xxxxxxxx | 09/30/19 | | | [...] 1975 | [phone] | [place] [address] | | | elisabet | | | 2 (Home) | | + +--------+ +--------+ + + | Mendez Castañeda | Person | Self | [birth year] | GENERAL DELIVERY | | | al/Fam | | 1974 | [phone] | [place] [address] | | | elisabet | | | [...]
--- OUTSIDE RECORDS SUMMARY | ~2020-05-06 | XMS | Encounter Summary ---
Demographics + + + | Address | GENERAL DELIVERY | | | [place] [address] | + + + | Home Phone [...] [place] | | | | | [address] | | + + + + + Care Team Providers + +------+ + | Care Windows Server Engineer Name | Role | Phone | [...] | (Primary Dx); | | | | [place], | | Left-sided low back | | | | [place] [address] | | pain with left-sided | | | | [phone] | | sciatica; Left hip | | [...] done Test results will be released through [employer] [facility] Return after 6 weeks of conservative therapy [...] done [facility] Return after 6 weeks of conservative therapy [...] + + + | [address] [place] [address] | [facility] | | [place] [address] | DEPARTMENT OF | | [phone] Name: TOMCHUCK Phys: | RADIOLOGY | | NATHANIEL FIGUEROA : 1975 Sex: M CSN: | | | [id number] MR# [id number] Exam Date: 04/19/2016 | | | EXAM: [...] Transcribed Date/Time: 04/19/2016 | | | 14:28 Chair Lift Operator: VAL | | + + + + + | Procedure Note | + + | Interface, Radiology Results - 04/19/2016 2:32 PM PDT [address] | | [address] [place] [address] | | Name: CHUCK SANTOS Phys: NATHANIEL FIGUEROA : 1975 Sex: M CSN: | | [id number] MR# [id number] Exam Date: 04/19/2016 EXAM:X-RAY SPINE LUMBOSACRAL 3 [...] | | |Transcribed Date/Time: 04/19/2016 14:28 | |Chair Lift Operator: FLUENCY | | | | | [...] + + + | [address] [place] [address] | [facility] | | [place] [address] | DEPARTMENT | | [phone] Name: CHUCK SANTOS Phys: | RADIOLOGY | | NATHANIEL FIGUEROA : 1975 Sex: M CSN: | | | [id number] MR# [id number] Exam Date: 04/19/2016 | | | EXAM: [...] Transcribed Date/Time: 04/19/2016 14:11 | | | Chair Lift Operator: FLUENCY | | + + + + + | Procedure Note | + + | Interface, Radiology Results - 04/19/2016 2:16 PM PDT [address] | | [address] [place] [address] | | Name: CHUCK SANTOS Phys: NATHANIEL FIGUEROA : 1975 Sex: M CSN: | | [id number] MR# [id number] Exam Date: 04/19/2016 EXAM:X-RAY HIP 2 VIEWS [...] | | |Transcribed Date/Time: 04/19/2016 14:11 | |Chair Lift Operator: FLUENCY | | | | | [...]
--- OUTSIDE RECORDS SUMMARY | ~2020-05-06 | XMS | Encounter Summary ---
Demographics + + + | Address | GENERAL DELIVERY | | | [place] [address] | + + + | Home Phone [...] [place] | | | | | [address] | | + + + + + Care Team Providers + +------+ + | Care Marine Firer Name | Role | Phone | + [...]
--- OUTSIDE RECORDS SUMMARY | ~2020-05-06 | XMS | Encounter Summary ---
Demographics + + + | Address | GENERAL DELIVERY | | | [place] [address] | + + + | Home Phone [...] Author + + + | Author | [facility] | + + + | Organization | [facility] | + + + | Address | Unknown | + + + | Phone | Unavailable | + + + Support + + + + + | Name | Relationship | Address | Phone | + + + + + | Neda Castañeda | ECON | [place] | | | | | [address] | | + + + + + Care Team Providers + +------+ + | Care High Heel Builder Name | Role | Phone | [...] | | | | | [address] [place] [address] | | | | | | [place] | | | | | | [address] | | | | | | [phone] | | | +--------+------+ + + + [...]
--- OUTSIDE RECORDS SUMMARY | ~2020-05-06 | XMS | Encounter Summary ---
Demographics + + + | Address | GENERAL DELIVERY | | | [place] [address] | + + + | Home Phone [...] [place] | | | | | [address] | | + + + + + Care Team Providers + +------+ + | Care Artificial Insemination Technician Name | Role | Phone | + +------+ + | Violeta Parker DO | PCP | | + +------+ + Encounter Details +--------+ + + + + | Date | Type | Department | Care Team | Description | +--------+ + + + + | 03/12/ | Procedure | Diagnostic Imaging | | | | 2017 | Pass | at [facility] | | | | | | [address] | | | | | | [place] | | | | | | [address] | | | | | | [phone] | | | +--------+ + + + [...]
--- OUTSIDE RECORDS SUMMARY | ~2020-05-06 | XMS | Encounter Summary ---
Demographics + + + | Address | GENERAL DELIVERY | | | [place] [address] | + + + | Home Phone [...] [place] | | | | | [address] | | + + + + + Care Team Providers + +------+ + | Care Visual Merchandising Director Name | Role | Phone | + +------+ + | Violeta Parker DO | PCP | | + +------+ + Encounter Details +--------+ + + + + | Date | Type | Department | Care Team | Description | +--------+ + + + + | 08/04/ | Document-Sc | [facility] | [place], | | | 2019 | christopher | Surgery Clinic [address] | Angel Woodall MD [address] | | | | | [address] | [address] | | | | | [place], [place] | [place], [place] | | | | | [address] | [address] | | | | | [phone] | [phone] | | | | | | | [...]
--- OUTSIDE RECORDS SUMMARY | ~2020-05-06 | XMS | Encounter Summary ---
Demographics + + + | Address | GENERAL DELIVERY | | | [place] [address] | + + + | Home Phone [...] Author + + + | Author | [facility] | + + + | Organization | [facility] | + + + | Address | Unknown | + + + | Phone | Unavailable | + + + Support + + + + + | Name | Relationship | Address | Phone | + + + + + | Neda Santos | ECON | [place] | | | | | [address] | | + + + + + Care Team Providers + +------+ + | Care Correctional Supervisor Lieutenant Name | Role | Phone | [...] | | | | disease), | | [address] | | | | | cervical | | Phone: | | | | | Chronic left | | [phone] | | | | | shoulder | [...] + + | 12/23/ | Transcribe | [facility] | Transcribe | | | 2019 | Orders | [facility] [address] | Cynthia Osman, | | | | | [address] | [address] | | | | | [place] | [place] [address] | | | | | [address] | | | +--------+ + + + [...] | + + + | [address] [place] [address] | [facility] | | [place], [place] [address] [place] [address] | | [phone] Name: CHUCK SANTOS Phys: | RADIOLOGY | | TELLOILIANA M : 1975 Sex: M | | | CSN: [id number] MR# [id number] Exam Date: | | | 01/01/2019 EXAM: [...] or foraminal stenosis. C3-4: | | | Amov-tq-oemislax diffuse disc osteophyte complex with bilateral mild [...] moderate foraminal stenosis. 3. | | | Qjjp-ui-tkpbltzj C3-4 diffuse disc osteophyte complex with bilateral | | | mild facet arthropathy and bilateral mild foraminal stenosis. | | | REPORT SIGNED IN OTHER VENDOR SYSTEM 01/01/2019 Reported by: | | | WADE MARTÍNEZ MD Electronically signed by: WADE MARTÍNEZ | | | Transcribed Date/Time: 01/01/2019 13:49 Surgical Coder: | | | FLUENCY | | + + + + + | Procedure Note | + + | Interface, Radiology Results - 01/01/2019 1:54 PM PDT [address] | | [address] [place] [address] | | Name: CHUCK SANTOS Phys: ILIANA JAVED : 1975 Sex: M | | CSN: [id number] MR# [id number] Exam Date: 01/01/2019 EXAM:MRI OF THE CERVICAL [...] canal or foraminal | | stenosis. C3-4: Aesc-lu-bnmwpjje diffuse disc osteophyte complex with bilateralmild | [...] | central canal and bilateral moderate foraminalstenosis.3. Awyk-hq-dkjzjcas C3-4 diffuse | | disc osteophyte complex [...] or foraminal stenosis. | | | |C3-4: Qjrv-ih-pgxjetoq diffuse disc osteophyte complex with bilateral | [...] bilateral moderate foraminal | |stenosis. | |3. Dbgj-rj-shnvrpdh C3-4 diffuse disc osteophyte complex with | |bilateral mild facet arthropathy and bilateral mild foraminal | |stenosis. | | | | | | REPORT SIGNED IN OTHER VENDOR SYSTEM 01/01/2019 | |Reported by: WADE MARTÍNEZ MD | | | |Electronically signed by: WADE MARTÍNEZ MD | | | |Transcribed Date/Time: 01/01/2019 13:49 | |Surgical Coder: FLUENCY | | | | | | | + + + +---------+ + + | Performing | Address | City/State[facility] | Phone Number | | [...]
--- OUTSIDE RECORDS SUMMARY | ~2020-05-06 | XMS | Encounter Summary ---
Demographics + + + | Address | GENERAL DELIVERY | | | [place] [address] | + + + | Home Phone [...] [place] | | | | | [address] | | + + + + + Care Team Providers + +------+ + | Care Felt Coverer Name | Role | Phone | [...] | Hospital [address] | DO [address] | | | | | [place], | [place] [address] | | | | | [place] [address] | [phone] | | | | | [phone] | | | +--------+ + + + [...] + + + | [address] | [facility] | | [place] [address] | DEPARTMENT OF | | [phone] Name: CHUCK SANTOS Phys: | RADIOLOGY | | ILIANA JAVED : 1975 Sex: M | | | CSN: [id number] MR# [id number] Exam Date: | | | 03/03/2019 EXAM: [...] Transcribed Date/Time: 03/03/2019 08:11 | | | Cloth Napping Supervisor: FLUENCY | | + + + + + | Procedure Note | + + | Interface, Radiology Results - 03/03/2019 8:15 AM PDT [address] | | [address] [place] [address] | | Name: CHUCK SANTOS Phys: ILIANA JAVED : 1975 Sex: M | | CSN: [id number] MR# [id number] Exam Date: 03/03/2019 EXAM:[facility] | [...] SYSTEM 03/03/2019 | | Reported by: Joseph Daiz MD Electronically signed by: Joseph Diaz MD [...] | | |Transcribed Date/Time: 03/03/2019 08:11 | |Cloth Napping Supervisor: FLUENCY | | | | | | [...]
--- OUTSIDE RECORDS SUMMARY | ~2020-05-06 | XMS | Encounter Summary ---
Demographics + + + | Address | GENERAL DELIVERY | | | [place] [address] | + + + | Home Phone [...] [place] | | | | | [address] | | + + + + + Care Team Providers + +------+ + | Care Cath Lab Manager Name | Role | Phone | + +------+ + | Violeta Parker DO | PCP | | + +------+ + Encounter Details +--------+ + + + + | Date | Type | Department | Care Team | Description | +--------+ + + + + | 12/12/ | Outside | [facility] | Violeta Parker, | | | 2019 | Referral | [facility] [address] | [address] | | | | Order | [address] | [place] [address] | | | | | [place] | [phone] | | | | | [address] | | | +--------+ + + + [...] joint, shoulder region | + + | Paresthesia Disturbance of skin sensation | + + documented in this encounter"
--- OUTSIDE RECORDS SUMMARY | ~2020-05-06 | XMS | Encounter Summary ---
Demographics + + + | Address | GENERAL DELIVERY | | | [place] [address] | + + + | Home Phone [...] [place] | | | | | [address] | | + + + + + Care Team Providers + +------+ + | Care Garbage Pick Up Worker Name | Role | Phone | + +------+ + | Violeta Parker DO | PCP | | + +------+ + Encounter Details +--------+ + + + + | Date | Type | Department | Care Team | Description | +--------+ + + + + | 09/08/ | Document-Sc | [facility] | [place], | | | 2018 | [place] | Surgery Clinic [address] | Angel Woodall MD [address] | | | | | [address] | [address] | | | | | [place], [place] | [place], [place] | | | | | [address] | [address] | | | | | [phone] | [phone] | | | | | | | [...]
--- OUTSIDE RECORDS SUMMARY | ~2020-05-06 | XMS | Encounter Summary ---
Demographics + + + | Address | GENERAL DELIVERY | | | [place] [address] | + + + | Home Phone | | + + + | Preferred Language | Unknown | + + + | Marital Status | Single | + + + | Catholic Affiliation | NRP | + + + | Race | White | + + + | Ethnic Group | Not or | + + + Author + + + | Author | [facility] | + + + | Organization | [facility] | + + + | Address | Unknown | + + + | Phone | Unavailable | + + + Support + + + + + | Name | Relationship | Address | Phone | + + + + + | Neda Castañeda | ECON | [place] | | | | | [address] | | + + + + + Care Team Providers + +------+ + | Care Insurance Advisor Name | Role | Phone | + [...] [place] | | | | | | [address] | | | | | | [phone] | | | | | | | [...] | OTHER | MUCUS PRESENT | | [facility] | | | | | | A MEDICAL | | | | | | CENTER | | + + + + + + | SOURCE | CLEAN CATCH | | [facility] | | | | | [...] [facility] | And | [place] | [phone] | | MEDICAL CENTER | Streets | [address] | | + + + + + documented in this encounter Visit Diagnoses Not on filedocumented in this encounter"
--- OUTSIDE RECORDS SUMMARY | ~2020-05-06 | XMS | Encounter Summary ---
Demographics + + + | Address | GENERAL DELIVERY | | | [place] [address] | + + + | Home Phone | | + + + | Preferred Language | Unknown | + + + | Marital Status | Single | + + + | Christian Affiliation | NRP | + + + [...] [place] | | | | | [address] | | + + + + + Care Team Providers + +------+ + | Care Evidence Specialist Name | Role | Phone | + +------+ + | Violeta Parker DO | PCP | | + +------+ + Encounter Details +--------+ + + + + | Date | Type | Department | Care Team | Description | +--------+ + + + + | 12/15/ | Inside | [facility] | Violeta Parker, | | | 2019 | Referral | [facility] [address] | DO [address] | | | | Order | [address] | [place] [address] | | | | | [place] | [phone] | | | | | [address] | | | +--------+ + + + [...]
--- OUTSIDE RECORDS SUMMARY | ~2020-05-06 | XMS | Encounter Summary ---
Demographics + + + | Address | GENERAL DELIVERY | | | [place] [address] | + + + | Home Phone [...] [place] | | | | | [address] | | + + + + + Care Team Providers + +------+ + | Care [employer] Executive Director Name | Role | Phone | [...] | | adenomatous | [place], [place] | [address] | | | | | polyp of | [address] | Phone: | | | | | colon | Phone: | [phone] | | | | | Thrush | [phone] | Fax: | | | | | Procedures | Fax: | [phone] | | | | | REQUEST TO | [phone] | | | | | | SURGERY | | | | | | | STAMPING MACHINE OPERATOR | | | | | | | NM | | | | | | | COLONOSCOPY, | | | | | | | DIAG INCL | | | | | | | SPEC COLLEC | | | | | | | NM | | | | | | | COLONOSCOPY, | | | | | | | REMV FOREIGN | | | | | | | BODY(S) NM | | | | | | | | | | | | | | COLONOSCOPY, | | | | | | | FLEX, | | | | | | | W/BIOPSY NM | | | | | | | | | | | | | | COLONOSCPY,F | | | | | | | NIVIA,W/DIR | | | | | | | SUBMUC | | | | | | | INJECT NM | | | | | | | COLONOSCOPY, | | | | | | | FLEX,W/CONTR | | | | | | | OL BLEED ANY | | | | | | | METHOD NM | | | | | | | COLONOSCOPY, | | | | | | | FLEX, W | | | | | | | REMV LESN BY | | | | | | | HOT BIOPSY | | | | | | | FORCEP NM | | | | | | | COLONOSCOPY, | | | | | | | REMV LESN BY | | | | | | | SNARE | | | | | | | TECHNIQUE | | | | | | | NM | | | | | | | COLONOSCOPY, | | | | | | | FLEX W | | | | | | | TRANSENDOSCO | | | | | | | PIC BALLOON | | | | | | | DILAT NM | | | | | | | [...] | | | | | | | NM | | | | | | | COLONOSCOPY, | | | | | | | FLEXIBLE; W | | | | | | | ENDOSCOPIC | | | | | | | STENT | | | | | | | PLACEMENT | | | | | | | NM | | | | | | | COLONOSCOPY, | | | | | | | FLEXIBLE; W | | | | | | | ENDOSCOPIC | | | | | | | MUCOSAL | | | | | | | RESECTION | | | | | | | NM UPPER GI | | | | | | | ENDOSCOPY,DI | | | | | | | AGNOSIS NM | | | | | | | UPPER GI | | | | | | | ENDOSCOPY,BI | | | | | | | OPSY NM UP | | | | | | [...] | | | | | pain | [address] | [address] | | | | | [place] | [place], | [address] | | | | | stomatitis | [place] [address] | [address] | | | | | | Phone: | Phone: | | | | | | [phone] | [phone] | | | | | | Fax: | Fax: | | | | | | [phone] | [phone] | +--------+--------+ + + + + Encounter Details +--------+---------+ + + + | Date | Type | Department | Care Team | Description | +--------+---------+ + + + | 08/06/ | Office | [facility] | H[place]to, | Family history of | | 2018 | Visit | Surgery Clinic 1809 | Angel Woodall MD 1809 | colon cancer | | | | E The | E The | (Primary Dx); | | | | [place], [place] | [place], [place] | History of | | | | [address] | [address] | adenomatous polyp of | | | | [phone] | [phone] | colon; Thrush; | | | | [...] to Expect at Home", log into your [employer] account at [email or web address]. You can enter [id number] in the "Ellie Library" search box. Not on [employer]? Review the [employer] section of your After Visit Summary for directions on ho w to sign up. Current as of: September 17, 2018 Content Version: [id number] [employer]. Care instructions adapted under license by [facility]. If you have questions about a medical condition or this instr uction, always ask your healthcare professional. [email or web address] disclaims any nina anty or liability for [...] monitor (like a TV set or a [employer] er screen) as he or she moves [...] living will and a durable power of commercial litigation attorney for health care. Bring a [...] apply lotions, pe rfumes, deodorants, or nail hong konger. Take off all jewelry and piercings. And [...] Endoscopy: Before Your Procedure", log into your [employer] acco unt at [email or web address]. You can enter [id number] in the "Ellie Library" search box. Not on [employer]? Review the [employer] section of your After Visit Summary for directions on booker cardoza to sign up. Current as of: August 06, 2018 Content Version: [id number] [employer]. Care instructions adapted under license by [facility] [employer]. If you have questions about a medical condition or this instr uction, always ask your healthcare professional. [email or web address] disclaims any nina anty or liability for [...] spine surgery 01/22/2012 anterior cervical discectomy C6-C7 [facility] Laminotomy of cervical vertebra with nerve root [...] file Gets together: Not on file Attends quaker service: Not on file Active member of [...] history of colon cancer - REQUEST TO TRANSFER ENGINEER History of adenomatous polyp of colon - REQUEST TO TRANSFER ENGINEER Thrush - REQUEST TO TRANSFER ENGINEER Other orders - sodium, potassium, magnesium sulfates [...] other systems reviewed and are negative. A Explosive Ordnance Manager was offered to the patient and declined. [...]
--- OUTSIDE RECORDS SUMMARY | ~2020-05-06 | XMS | Encounter Summary ---
Demographics + + + | Address | GENERAL DELIVERY | | | [place] [address] | + + + | Home Phone [...] [place] | | | | | [address] | | + + + + + Care Team Providers + +------+ + | Care Ship Mate Name | Role | Phone | + [...] | | | | | | [place] [address] | | | | | | [phone] | | | +--------+ + + + [...]
--- OUTSIDE RECORDS SUMMARY | ~2020-05-06 | XMS | Encounter Summary ---
Demographics + + + | Address | GENERAL DELIVERY | | | [place] [address] | + + + | Home Phone [...] [place] | | | | | [address] | | + + + + + Care Team Providers + +------+ + | Care Folder Stitcher Operator Name | Role | Phone | [...] | | | | | [address] [place], | [place], [place] | | | 03/09/ | | [place] [address] | [address] | | | 2016 | | [phone] | [phone] | | | | | | | | | | | | Peter Rubin, | | | | | | [address] [place] | | | | | | [place], [place] | | | | | | [address] | | | | | | [phone] | | | | | | | | | | | | Bhavesh Mays, | | | | | | [address] | | | | | | [place], [place] | | | | | | [address] | | | | | | [phone] | | | | | | | [...] Phone Center 03/13/2017 9:00 AM Herbert Marie [facility] Family Medicine [phone] [facility] Schedule the following appointment(s) when you get home Follow up with ИРИНА REDDY, ANP,DNP. Specialties: Nurse Practitioner Adult Health, Family [place] [phone] Other Discharge Orders and Instructions Joe Reddy [phone] (for after your current doctor leaves) Outstanding labs/studies: Time spent in preparation of this discharge was greater than 30 minutes. MD Bhavesh Daimond MD Hospital Medicine Service [facility] documented in this encounter Progress Notes Bhavesh [...] P are pending MD Bhavesh Diamond MD [facility] Medicine Department of Medicine [facility] documented in this encounter Plan of Treatment [...] 8.0 | 3.5 - 10.8 K/cu | [facility] | | | | | mm | [...] reflex rules apply to this test. | [facility] | | | [facility] | + + + + + + + + | Performing | Address | City/State/Zipcode | Phone Number | | Organization | | | | + + + + + | [facility] | And | [place] | [phone] | | [facility] [place] | [facility] | [address] | | + + + + + LIPASE, PLASMA (03/09/2017 5:58 AM PDT) + +-------+ + + + | Component | Value | Ref Range | Performed | Pathologist | | | | | At | Signature | + +-------+ + + + | LIPASE | 41 | 5 - 57 U/L | [facility] | | | (LAB) | [...] + + + + | [facility] | [address] [place] | [place] | [phone] | | MEDICAL CENTER | Streets | [address] | | + + + + + BASIC METABOLIC SET (NA, K, CL, TCO2, BUN, CR, GLU, CA) (03/09/2017 5:58 AM PDT) + +---------+ + + + | Component | Value | Ref Range | Performed | Pathologist | | | | | At | Signature | + +---------+ + + + | GLUCOSE, | 86 | 70 - 105 mg/dL | [facility] | | | PLASMA | | [...] | | A MEDICAL | | | [place] | | | CENTER | | + [...] [facility] | And | [place] | [phone] | | MEDICAL CENTER | [place] | [address] | | + + + + + CT ABDOMEN AND PELVIS W IV CONTRAST (03/08/2017 3:03 PM PDT) + + | Specimen | + + | | + + + + + | Narrative | Performed At | + + + | [address] | [facility] | | [place] [address] [facility] | | [phone] Name: CHUCK SANTOS Phys: | RADIOLOGY | | BHAVESH MAYS : 1975 Sex: M | | | CSN: [id number] MR# [id number] Exam Date: | | | 03/08/2017 EXAM: [...] Transcribed Date/Time: 03/08/2017 17:10 | | | Manager Net: FLUENCY | | + + + + + | Procedure Note | + + | Interface, Radiology Results - 03/08/2017 5:14 PM PDT [address] | | [place] [address] | | Name: CHUCK SANTOS Phys: BHAVESH MAYS : 1975 Sex: M | | CSN: [id number] MR# [id number] Exam Date: 03/08/2017 EXAM:CT ABDOMEN AND PELVIS [...] | | |Transcribed Date/Time: 03/08/2017 17:10 | |Manager Net: VAL | | | | | | | + + + +---------+ + + | Performing | Address | City/State/[facility] | Phone Number | [...] - [place] | | | | NUMBER: [id number] | | | | | | TEST [...] | | | | | Test code(s) 30222K | | | | | | (Cryptosporidium Ag., | | | | | | | | | | | | DFA) and/or 39718Z | | | | | | (Cyclospora [...] + + | [facility] | [address] | [place] [address] | | | - [place] | [address] | | | + + [...] + + + + | [facility] | And | [place] | [phone] | | [facility] | Street | [address] | | + + + + + [...] + + + + | [facility] | [address] [place] | [place], [place] | [phone] | | MEDICAL CENTER | Streets | [address] | | + + + + + BASIC METABOLIC SET (NA, K, CL, TCO2, BUN, CR, GLU, CA) (03/08/2017 6:25 AM PDT) + +---------+ + + + | Component | Value | Ref Range | Performed | Pathologist | | | | | At | Signature | + +---------+ + + + | GLUCOSE, | 129 (H) | 70 - 105 mg/dL | [facility] | | | PLASMA | | | A MEDICAL | | | (LAB) | | | CENTER | | + +---------+ + + + | BUN, PLASMA | 12 | 6 - 26 mg/dL | [facility] | | | (LAB) | | [...] | | A MEDICAL | | | [place] | | | CENTER | | + [...] [address] | [place] | [phone] | | MEDICAL CENTER | Streets | [address] | | + + + + + [...] AG | HIV-1/HIV-2 antibodies | | - [place] | | | SCREEN | were notdetected. [...] refer | | | | | | [email or web address] | | | | | | [email or web address] | | | | | | 06(This [...] [facility] | [address] | [place] [address] | | | - [place] | [address] | | | + + + + + PTH, SERUM (03/08/2017 6:25 AM PDT) + +-------+ + + + | Component | Value | Ref Range | Performed | Pathologist | | | | | At | Signature | + +-------+ + + + | PTH, SERUM | 20 | 15 - 65 pg/mL | [facility] | | | | | [...] | + + + + + | [facility] | And | [place], [place] | [phone] | | MEDICAL CENTER | Street | [address] | | + + + + + PHOSPHORUS, PLASMA (03/08/2017 6:25 AM PDT) + +-------+ + + + | Component | Value | Ref Range | Performed | Pathologist | | | | | At | Signature | + +-------+ + + + | PHOSPHORUS, | 3.9 | 2.1 - 4.6 mg/dL | [facility] | | | PLASMA | | [...] | + + + + + | [facility] | [address] [place] | [place] | [phone] | | [facility] [place] | Streets | [address] | | + + + + + [...] [address] | [place] | [phone] | | MEDICAL CENTER | Streets | [address] | | + + + + + [...] | + + + + + | [facility] | And | [place], [place] | [phone] | | MEDICAL CENTER | Street | [address] | | + + + + + LIPASE, PLASMA (03/08/2017 12:46 AM PDT) + +---------+ + + + | Component | Value | Ref Range | Performed | Pathologist | | | | | At | Signature | + +---------+ + + + | LIPASE | 281 (H) | 5 - 57 U/L | [facility] | | | (LAB) | | [...] | + + + + + | [facility] | [address] [place] | [place], [place] | [phone] | | [facility] | [facility] | [address] | | + + + + + [...] | | A MEDICAL | | | [place] | | | CENTER | | + [...] | 10 | 6 - 20 | [facility] | | | INE RATIO | [...] equation recommended by the | [facility] | | National Kidney Disease Education Program. Estimated GFR | [facility] | | Interpretive Information: <60 mL/min/1.73 [...] CENTER | And | [place] | [phone] | | [facility] | [facility] | [address] | | + + + + + [...]
--- OUTSIDE RECORDS SUMMARY | ~2020-05-06 | XMS | Encounter Summary ---
Demographics + + + | Address | GENERAL DELIVERY | | | [place] [address] | + + + | Home Phone [...] [place] | | | | | [address] | | + + + + + Care Team Providers + +------+ + | Care Asset Protection Greeter Name | Role | Phone | + [...] | Hospital [address] | DO [address] | | | | | St [place], | [place] [address] | | | | | [place] [address] | [phone] | | | | | [phone] | | | +--------+ + + + [...] | + + + | [address] [place] [address] | [facility] | | [place] [address] | [facility] | | [phone] Name: CHUCK SANTOS Phys: | RADIOLOGY | | ILIANA JAVED : 1975 Sex: M | | | CSN: [id number] MR# [id number] Exam Date: | | | 03/03/2019 EXAM: [...] Transcribed Date/Time: 03/03/2019 08:23 | | | Field Education Coordinator: FLUENCY | | + + + + + | Procedure Note | + + | Interface, Radiology Results - 03/03/2019 8:27 AM PDT [address] | | [address] [place] [address] | | Name: CHUCK SANTOS Phys: TELLOILIANA M : 1975 Sex: M | | CSN: [id number] MR# [id number] Exam Date: 03/03/2019 EXAM:US ABDOMEN LIMITED | [...] | | |Transcribed Date/Time: 03/03/2019 08:23 | |Field Education Coordinator: FLUENCY | | | | | | [...]
--- OUTSIDE RECORDS SUMMARY | ~2020-05-06 | XMS | Encounter Summary ---
Demographics + + + | Address | GENERAL DELIVERY | | | [place] [address] | + + + | Home Phone [...] [place] | | | | | [address] | | + + + + + Care Team Providers + +------+ + | Care Income Tax Manager Name | Role | Phone | + +------+ + | Violeta Parker DO | PCP | | + +------+ + Encounter Details +--------+ + + + + | Date | Type | Department | Care Team | Description | +--------+ + + + + | 08/06/ | Abstract | [facility] | [place], | | | 2017 | | Surgery Clinic [address] | Angel Woodall MD [address] | | | | | E The | E The | | | | | [place] | [address] | | | | | [address] | [address] | | | | | [phone] | [phone] | | | | | | | [...]
--- OUTSIDE RECORDS SUMMARY | ~2020-05-06 | XMS | Encounter Summary ---
Demographics + + + | Address | GENERAL DELIVERY | | | [place] [address] | + + + | Home Phone [...] [place] | | | | | [address] | | + + + + + Care Team Providers + +------+ + | Care Steam Hammer Operator Name | Role | Phone | [...] | | | | | Procedures | [place], [place] | | | | | | CONSULT TO | [address] | | | | | | PAIN | Phone: | | | | | | MANAGEMENT | [phone] | | | | | | | Fax: | | | | | | | [phone] | | + +--------+ + + + [...] | | | | | disease), | [place], | [place], [place] | | | | | cervical | [place] [address] | [address] | | | | | Numbness and | Phone: | Phone: | | | | | tingling in | [phone] | [phone] | | | | | both hands | Fax: | Fax: | | | | | Procedures | [phone] | [phone] | | | | | [place] NEW | | | | | | | PATIENT | | | | | | | LEVEL V [place] | | | | | | | [...] | | | [facility] | [place], [place] | (Primary Dx) | | | | [facility], | [address] | | | | | Building | [phone] | | | | | floor [place], [place] | | | | | | [address] | | | | | | [phone] | | | +--------+---------+ + + + [...] spine surgery 01/22/2012 anterior cervical discectomy C6-C7 [facility] Laminotomy of cervical vertebra with nerve root [...]
--- OUTSIDE RECORDS SUMMARY | ~2020-05-06 | XMS | Encounter Summary ---
Demographics + + + | Address | GENERAL DELIVERY | | | [place] [address] | + + + | Home Phone [...] [place] | | | | | [address] | | + + + + + Care Team Providers + +------+ + | Care Manager Life Insurance Name | Role | Phone | + [...]
--- OUTSIDE RECORDS SUMMARY | ~2020-05-06 | XMS | Encounter Summary ---
Demographics + + + | Address | GENERAL DELIVERY | | | [place] [address] | + + + | Home Phone [...] [place] | | | | | [address] | | + + + + + Care Team Providers + +------+ + | Care Concrete Pourer Name | Role | Phone | + +------+ + | Violeta Parker DO | PCP | | + +------+ + Encounter Details +--------+ + + + + | Date | Type | Department | Care Team | Description | +--------+ + + + + | 09/18/ | Telephone | Surgical Services | [place], | | | 2018 | | at [facility] | Angel Woodall MD [address] | | | | | [address] | [address] | | | | | [place] | [place] [address] | | | | | [address] | [address] | | | | | [phone] | [phone] | | | | | | | [...]
--- OUTSIDE RECORDS SUMMARY | ~2020-05-06 | XMS | Encounter Summary ---
Demographics + + + | Address | GENERAL DELIVERY | | | [place] [address] | + + + | Home Phone [...] [place] | | | | | [address] | | + + + + + Care Team Providers + +------+ + | Care Cooler Operator Name | Role | Phone | [...]
--- OUTSIDE RECORDS SUMMARY | ~2020-05-06 | XMS | Encounter Summary ---
Demographics + + + | Address | GENERAL DELIVERY | | | [place] [address] | + + + | Home Phone | | + + + | Preferred Language | Unknown | + + + | Marital Status | Single | + + + | Alevism Affiliation | NRP | + + + | Race | White | + + + | Ethnic Group | Not or | + + + Author + + + | Author | [facility] | + + + | Organization | [facility] | + + + | Address | Unknown | + + + | Phone | Unavailable | + + + Support + + + + + | Name | Relationship | Address | Phone | + + + + + | Neda Castañeda | ECON | [place] | | | | | [address] | | + + + + + Care Team Providers + +------+ + | Care Netting Weaver Name | Role | Phone | + [...] | 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 | [place] | [place] | | | | | without | Allison Parker | [place] | | | | | rupture | [place], [place] | [address] | | | | | (HCC) | [address] | floor | | | | | Procedures | Phone: | [place], [place] | | | | | TRANSTHORACI | [phone] | [address] | | | | | C | Fax: | Phone: | | | | | ECHOCARDIOGR | [phone] | [phone] | | | | | AM, ADULT | | | + +--------+ + + + + Encounter Details +--------+ + + + + | Date | Type | Department | Care Team | Description | +--------+ + + + + | 06/30/ | Door Paneler | Cardiothoracic | Lit Boland, | 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
--- OUTSIDE RECORDS SUMMARY | ~2020-05-06 | XMS | Encounter Summary ---
Demographics + + + | Address | GENERAL DELIVERY | | | [place] [address] | + + + | Home Phone [...] [place] | | | | | [address] | | + + + + + Care Team Providers + +------+ + | Care Senior Field Engineer Name | Role | Phone | [...] | | | St [place] | [place] [address] | | | | | [address] | [phone] | | | | | [phone] | | | +--------+ + + + [...]
--- OUTSIDE RECORDS SUMMARY | ~2020-05-06 | XMS | Encounter Summary ---
Demographics + + + | Address | GENERAL DELIVERY | | | [place] [address] | + + + | Home Phone [...] [place] | | | | | [address] | | + + + + + Care Team Providers + +------+ + | Care Liquor Clerk Name | Role | Phone | [...] | | CT ABDOMEN | The | [address] | | | | | AND PELVIS W | [place] [address] | Phone: | | | | | IV CONTRAST | [address] | [phone] | | | | | [place] CT | Phone: | | | | | | ABDOMEN&PELV | [phone] | | | | | | IS | Fax: | | | | | | W/CONTRAST | [phone] | | +--------+--------+ + + + + [...] | | | | | obstruction | [place], | [place], [place] | | | | | or [place] | [place] | [address] | | | | | | Phone: | Phone: | | | | | | [phone] | [phone] | | | | | | Fax: | Fax: | | | | | | [phone] | [phone] | +--------+--------+ + + + + Encounter Details +--------+---------+ + + + | Date | Type | Department | Care Team | Description | +--------+---------+ + + + | 03/05/ | Office | [facility] | Sandhya, | Chronic RLQ pain | | 2019 | Visit | Surgery Clinic [address] | Paras Woodall MD [address] | (Primary Dx) | | | | [address] | st The | | | | | [place], [place] | [place], [place] | | | | | [address] | [address] | | | | | [phone] | | | | | | | [...] spine surgery 01/22/2012 anterior cervical discectomy C6-C7 [facility] Laminotomy of cervical vertebra with [...] file Gets together: Not on file Attends buddhism service: Not on file Active member of [...] [facility] [address] | [facility] | | [place] [address] | DEPARTMENT OF | | [phone] Name: CHUCK SANTOS Phys: | RADIOLOGY | | PARAS PAUL : 1975 Sex: M | | | CSN: [id number] MR# [id number] Exam Date: | | | 03/11/2019 EXAM: [...] Transcribed Date/Time: | | | 03/11/2019 09:45 Internet Marketing Director: VAL | | + + + + + | Procedure Note | + + | Interface, Radiology Results - 03/11/2019 9:49 AM PDT [address] | | [address] [place] [address] | | Name: CHUCK SANTOS Phys: SANDHYAPARAS Jose C : 1975 Sex: M | | CSN: [id number] MR# [id number] Exam Date: 03/11/2019 EXAM:CT ABDOMEN AND | [...] | | |Transcribed Date/Time: 03/11/2019 09:45 | |Internet Marketing Director: FLUENCY | | | | | | | + + + +---------+ + + | Performing | Address | City/State/[facility] | Phone Number | | Organization [...] | | A MEDICAL | | | [place] | | | CENTER | | + [...] | + + + + + | [facility] | And | [place], [place] | [phone] | | MEDICAL CENTER | Streets | [address] | | + + + + + documented in this encounter Visit Diagnoses + + | Diagnosis | + + | Chronic RLQ pain - Primary Abdominal pain, right lower quadrant | + + documented in this encounter"
--- OUTSIDE RECORDS SUMMARY | ~2020-05-06 | XMS | Encounter Summary ---
Demographics + + + | Address | GENERAL DELIVERY | | | [place] [address] | + + + | Home Phone [...] [place] | | | | | [address] | | + + + + + Care Team Providers + +------+ + | Care Contact Center Assistant Name | Role | Phone | + +------+ + | Herebrt Marie MD,MPH | PCP | Unavailable | [...] conflict) | | | | [address] [place], | | | | | | [place] [address] | | | | | | [phone] | | | +--------+ + + + [...]
--- OUTSIDE RECORDS SUMMARY | ~2020-05-06 | XMS | Encounter Summary ---
Demographics + + + | Address | GENERAL DELIVERY | | | [place] [address] | + + + | Home Phone | | + + + | Preferred Language | Unknown | + + + | Marital Status | Single | + + + | Quaker Affiliation | NRP | + + + [...] [place] | | | | | [address] | | + + + + + Care Team Providers + +------+ + | Care Dietetic Technician Name | Role | Phone | + +------+ + | Iliana Parker DO | PCP | | + +------+ + Encounter Details +--------+ + + + + | Date | Type | Department | Care Team | Description | +--------+ + + + + | 08/04/ | Transcribe | [facility] | Iliana Parker, | | | 2019 | Orders | [facility] [address] | DO [address] | | | | | [address] | [place] [address] | | | | | [place] | [phone] | | | | | [address] | | | +--------+ + + + [...] | + + + | [address] [place] [address] | [facility] | | [place] [address] | DEPARTMENT | | [phone] Name: CHUCK SANTOS Phys: | RADIOLOGY | | TELLOILIANA M : 1975 Sex: M | | | CSN: [id number] MR# [id number] Exam Date: | | | 08/28/2019 EXAM: [...] Transcribed | | | Date/Time: 08/28/2019 12:18 Operating Room Nurse: FLUENCY | | + + + + + | Procedure Note | + + | Interface, Radiology Results - 08/28/2019 12:26 PM PST [address] | | [place], [place] [address] | | Name: CHUCK SANTOS Phys: ILIANA JAVED : 1975 Sex: M | | CSN: [id number] MR# [id number] Exam Date: 08/28/2019 EXAM:RENAL AND BLADDER | [...] | | |Transcribed Date/Time: 08/28/2019 12:18 | |Operating Room Nurse: FLUENCY | | | | | | [...]
--- OUTSIDE RECORDS SUMMARY | ~2020-05-06 | XMS | Encounter Summary ---
Demographics + + + | Address | GENERAL DELIVERY | | | [place] [address] | + + + | Home Phone [...] [place] | | | | | [address] | | + + + + + Care Team Providers + +------+ + | Care Electrical Timing Device Calibrator Name | Role | Phone | + [...] Dx); | | | | [address] [place], | | Recurrent kidney | | | | [place] [address] | | stones; Elevated BP; | | | | [phone] | | Healthcare | | | | [...] kids Test results will be released through [employer] or sent as a letter. It may [...] Component Value Date CHOL 285 10/11/2014 LDL SUPERINTENDENT RADIO COMMUNICATIONS 10/11/2014 HDL 35 10/11/2014 TRI 422 10/11/2014 [...] kids Test results will be released through [employer] or sent as a letter. It may [...] to flu vaccine? No Prior history of Guillain-Fenton syndrome? No (For patients receiving Fluarix): Allergy [...] + + + | Test performed at [facility] | [facility] | | [address] [facility] | DIAGNOSTICS - | | [place] [address] | [facility] | | Target Developer BRIAN LOPES MD | | + + + + + + + + | Performing | Address | City/State/Zipcode | Phone Number | | Organization | | | | + + + + + | [facility] | [address] [facility] | [place] [address] | | | - [place] | [address] [...]
--- OUTSIDE RECORDS SUMMARY | ~2020-05-06 | XMS | Encounter Summary ---
Demographics + + + | Address | [place]AL DELIVERY | | | [place] [address] | + + + | Home Phone [...] [place] | | | | | [address] | | + + + + + Care Team Providers + +------+ + | Care Bacteriologist Medical Name | Role | Phone | + [...]
--- OUTSIDE RECORDS SUMMARY | ~2020-05-06 | XMS | Encounter Summary ---
Demographics + + + | Address | GENERAL DELIVERY | | | [place] [address] | + + + | Home Phone [...] [place] | | | | | [address] | | + + + + + Care Team Providers + +------+ + | Care Retail Coverage Merchandiser Name | Role | Phone | + [...] | | | Staff | [address] [place], | | | | | | [place] [address] | | | | | | [phone] | | | +--------+ + + + [...]
--- OUTSIDE RECORDS SUMMARY | ~2020-05-06 | XMS | Encounter Summary ---
Demographics + + + | Address | [place]AL DELIVERY | | | [place] [address] | + + + | Home Phone [...] [place] | | | | | [address] | | + + + + + Care Team Providers + +------+ + | Care Executive Steward Name | Role | Phone | + +------+ + | Violeta Parker DO | PCP | | + +------+ + Encounter Details +--------+--------+ + + + | Date | Type | Department | Care Team | Description | +--------+--------+ + + + | 04/14/ | Travel | | | | | [...]
--- OUTSIDE RECORDS SUMMARY | ~2020-05-06 | XMS | Encounter Summary ---
Demographics + + + | Address | GENER[place] DELIVERY | | | [place] [address] | + + + | Home Phone [...] [place] | | | | | [address] | | + + + + + Care Team Providers + +------+ + | Care Supervisor Press Room Name | Role | Phone | + [...]
--- OUTSIDE RECORDS SUMMARY | ~2020-05-06 | XMS | Encounter Summary ---
Demographics + + + | Address | GENERAL DELIVERY | | | [place] [address] | + + + | Home Phone [...] [place] | | | | | [address] | | + + + + + Care Team Providers + +------+ + | Care Boot Repairer Name | Role | Phone | [...] stones (Primary Dx); | | | | [place], | | Epigastric pain; | | | | [place] [address] | | Elevated BP; Mixed | | | | [phone] | | hyperlipidemia; | | | | [...] pm Saturday 10 am - 4 pm [facility] Family Medicine Clinic at [address] We will inform you of the [...] Component Value Date CHOL 285 10/11/2014 LDL MAINT MECHANIC 10/11/2014 HDL 35 10/11/2014 TRI 422 10/11/2014 [...] pm Saturday 10 am - 4 pm [facility] Family Medicine Clinic at [address] We will inform you of the [...] | + + + + + | [facility] | [address] [place] [address] | [place] | | | FAMILY MEDICINE | | [address] | | + + + + + [...] 30 mg/dL higher than | [facility] | | that for LDL cholesterol. [...] + + | [facility] | [address] | [place], [place] | [phone] | | [facility] | [facility] | [address] | | + + + + + [...] | | A MEDICAL | | | [place] | | | CENTER | | + [...] Disease Education Program. Estimated GFR | [facility] | | Interpretive Information: <60 mL/min/1.73 [...] | [facility] | [address] | [place], [place] | [phone] | | [facility] | Streets | [address] | | + + + + + HEMOGLOBIN A1C, BLOOD (06/21/2016 1:46 PM PDT) + +-------+ + + + | Component | Value | Ref Range | Performed | Pathologist | | | | | At | Signature | + +-------+ + + + | HEMOGLOBIN | 5.8 | % | [facility] | | | A1C | | | A MEDICAL | | | | | | CENTER | | + +-------+ + + + | ESTIMATED | 120 | mg/dL | [facility] | | | [place] | | [...] | [facility] | | Normal Range: <6% [facility] | | Good Control: <7% | | | Additional action suggested: >8% Non-Diabetic | | | Ranges: 4-6% Speeder Hand's Glycohemoglobin | | | Diabetic Ranges: Normal Range: | | | 4.0-6.0% Good Control: | | | 6.0-8.0% Poor Control: | | | >8.0% | | + + + + + + + + | Performing | Address | City/State/Zipcode | Phone Number | | Organization | | | | + + + + + | [facility] | [address] | [place] | [phone] | | [facility] | [place] | [address] | | + + + + + [...]
--- OUTSIDE RECORDS SUMMARY | ~2020-05-06 | XMS | Encounter Summary ---
Demographics + + + | Address | GENERAL DELIVERY | | | [place] [address] | + + + | Home Phone [...] [place] | | | | | [address] | | + + + + + Care Team Providers + +------+ + | Care Tap Dancer Name | Role | Phone | + [...] | Hospital [address] | DO [address] | | | | | [place], | [place] [address] | | | | | [place] [address] | [phone] | | | | | [phone] | | | +--------+ + + + [...] | + + + | [address] [place] [address] | [facility] | | [place] [address] | DEPARTMENT OF | | [phone] Name: CHUCK SANTOS Phys: | RADIOLOGY | | ILIANA JAVED : 1975 Sex: M | | | CSN: [id number] MR# [id number] Exam Date: | | | 08/28/2019 EXAM: [...] Transcribed | | | Date/Time: 08/28/2019 12:18 Ip Litigation Associate: VAL | | + + + + + | Procedure Note | + + | Interface, Radiology Results - 08/28/2019 12:26 PM PST [address] | | [address] [place] [address] | | Name: CHUCK SANTOS Phys: ILIANA JAVED : 1975 Sex: M | | CSN: [id number] MR# [id number] Exam Date: 08/28/2019 EXAM:RENAL AND BLADDER | [...] | | |Transcribed Date/Time: 08/28/2019 12:18 | |Ip Litigation Associate: FLUENCY | | | | | | [...]
--- OUTSIDE RECORDS SUMMARY | ~2020-05-06 | XMS | Encounter Summary ---
Demographics + + + | Address | GENERAL DELIVERY | | | [place] [address] | + + + | Home Phone [...] [place] | | | | | [address] | | + + + + + Care Team Providers + +------+ + | Care Music Manager Name | Role | Phone | + +------+ + | Violeta Parker DO | PCP | | + +------+ + Encounter Details +--------+ + + + + | Date | Type | Department | Care Team | Description | +--------+ + + + + | 08/14/ | Document-Sc | Laboratory at | Transcribe | | | 2019 | anned | [facility] | Encounter, Provider, | | | | | Center [address] | [address] | | | | | St [place] | [place] [address] | | | | | [address] | | | | | | [phone] | | | +--------+ + + + [...]
--- OUTSIDE RECORDS SUMMARY | ~2020-05-06 | XMS | Encounter Summary ---
Demographics + + + | Address | GENERAL DELIVERY | | | [place] [address] | + + + | Home Phone [...] [place] | | | | | [address] | | + + + + + Care Team Providers + +------+ + | Care Tumbling And Rolling Supervisor Name | Role | Phone | [...] | | 2018 | | Department at [facility] | MD [address] | | | | | Hospital [address] | [place], [place] | | | | | [place], | [address] | | | | | [place] [address] | [phone] | | | | | [phone] | | | +--------+ + + + [...] being discharged from the emergency department to [facility] a follow-up visit. Primary care provider clinics [...] local pharmacy pricing. Search the internet for Myrl on your computer or upload the Myrl application to your phone and type the name of your medication into the program. It will find the [facility] local pharmacy to get your medication filled. [...] + + + | [address] [place] [address] | [facility] | | [place] [address] | DEPARTMENT OF | | [phone] Name: CHUCK SANTOS Phys: | RADIOLOGY | | NATHANIEL ALMONTE : 1975 Sex: M CSN: | | | [id number] MR# [id number] Exam Date: 04/14/2019 | | | EXAM: [...] Transcribed | | | Date/Time: 04/14/2019 15:14 Sanitation Truck Driver: FLUENCY | | + + + + + | Procedure Note | + + | Interface, Radiology Results - 04/14/2019 3:19 PM PDT [address] | | [address] [place] [address] | | Name: CHUCK SANTOS Phys: NATHANIEL ALMONTE : 1975 Sex: M | | CSN: [id number] MR# [id number] Exam Date: 04/14/2019 EXAM:TWO VIEW CHEST XRAY [...] | | |Transcribed Date/Time: 04/14/2019 15:14 | |Sanitation Truck Driver: FLUENCY | | | | | | [...] | + + + + + | [facility] | And | [place], [place] | [phone] | | [facility] | [facility] | [address] | | + + + + + [...] | | A MEDICAL | | | [facility] | | | CENTER | | + [...] | + + + + + | [facility] | [address] | [place] | [phone] | | [facility] | [place] | [address] | | + + + + + documented in this encounter Visit Diagnoses + + | Diagnosis | + + | Acute frontal sinusitis, recurrence not specified - Primary | + + | Acute nonintractable headache, unspecified headache type | + + | Cough | + + documented in this encounter
--- OUTSIDE RECORDS SUMMARY | ~2020-05-06 | XMS | Encounter Summary ---
Demographics + + + | Address | GENERAL DELIVERY | | | [place] [address] | + + + | Home Phone [...] [place] | | | | | [address] | | + + + + + Care Team Providers + +------+ + | Care College Scouting Coordinator Name | Role | Phone | + +------+ + | Nathalie Castillo | PCP | | + +------+ + Encounter Details +--------+ + + + + | Date | Type | Department | Care Team | Description | +--------+ + + + + | 11/19/ | Results | [facility] | Herbert Galelgo, | | | 2012 | Only | Department | [address] | | | | | | [place] | | | | | | [address] | | | | | | [phone] | | | | | | | [...] + + + + | [facility] | ORAL AND MAXILLOFACIAL PATHOLOGIST | [facility] | [facility] | | | | | | A MEDICAL | | | | | | CENTER | | + + + + + + | OTHER | ORAL AND MAXILLOFACIAL PATHOLOGIST | | [facility] | | | | [...] [address] | [place] | [phone] | | MEDICAL CENTER | [place] | [address] | | + + + + + documented in this encounter Visit Diagnoses Not on filedocumented in this encounter"
--- OUTSIDE RECORDS SUMMARY | ~2020-05-06 | XMS | Encounter Summary ---
Demographics + + + | Address | GENERAL DELIVERY | | | [place] [address] | + + + | Home Phone [...] [place] | | | | | [address] | | + + + + + [...] | | | | | | [place] [address] | | | | | | [phone] | | | +--------+ + + + [...]
--- OUTSIDE RECORDS SUMMARY | ~2020-05-06 | XMS | Encounter Summary ---
Demographics + + + | Address | GENERAL DELIVERY | | | [place] [address] | + + + | Home Phone [...] [place] | | | | | [address] | | + + + + + Care Team Providers + +------+ + | Care Patient Financial Advocate Name | Role | Phone | + +------+ + | Miguel A Peraza PA-C | PCP | | + +------+ + Reason for Visit + + + | Reason | Comments | + + + | Vomiting | Pt is here today due to vomiting and diarrhea that started a few | | | days ago. Pt is unsure if he has had any fevers. Pt said he feels | | | nauseas and has stomach pain. Pt said he has been trying to stay | | | hydrated. | + + + | Diarrhea | | + + + | Nausea | | + + + | Stomach ache | | + + + Encounter Details +--------+---------+ + + + | Date | Type | Department | Care Team | Description | +--------+---------+ + + + | 06/25/ | Office | [facility] | Ying Price, | Viral | | 2018 | Visit | Medicine [address] | BATTERY INSTALLER [address] | gastroenteritis | | | | [address] [place], | [place] | (Primary Dx) | | | | [place] [address] | [address] | | | | | [phone] | [phone] | | | | | | | [...] + + + | Blood Pressure | 104/78 | 06/25/2018 12:20 PM | | | | | PDT | | + + + + + | Pulse | 71 | 06/25/2018 12:20 PM | | | | | PDT | | + + + + + | Temperature | 36.6 C (97.9 F) | 06/25/2018 12:20 PM | | | | | PDT | | + + + + + | Respiratory Rate | - | - | | + + + + + | Oxygen Saturation | 96% | 06/25/2018 12:20 PM | | | | | PDT | | + + + + + | Inhaled Oxygen | - | - | | | Concentration | | | | + + + + + | Weight | 83.9 kg (185 lb) | 06/25/2018 12:20 PM | | | | | PDT | | + + + + + | Height | - | - | | + + + + + | Body Mass Index | 31.76 | 03/12/2018 2:30 PM | | | | | PDT | | + + + + + documented in this encounter Patient Instructions Patient Instructions Ying Price, [facility] - 06/25/2018 12:45 PM PDTFormatting of this not e might be different from the original. Use phenergan as needed for nausea or vomiting Consume soft bland foods, such as broth, hot cereal, mashed potatoes, rice. Avoid meats and fatty foods. Stay well hydrated with water and electrolyte replacement such as gatorade or pedialyte. Expect gradual improvement over the next 3-4 days, return if symptoms worsen or unable to t olerate oral foods or fluids. Gastroenteritis: Care Instructions Your Care Instructions Gastroenteritis [...] sunken eyes, a dry mouth, and pass on ly a little dark urine. You feel like [...] about "Gastroenteritis: Care Instructions", log into your [employer] account at [email or web address]. You can enter N142 in the "Health Library" search box. Not on [employer]? Review the MeshApphart section of your After Visit Summary for directions on ho w to sign up. Current as of: August 17, 2017 Content Version: 11.7 2533-0114 [employer]. Care instructions adapted under license by [facility] [employer]. If you have questions about a medical condition or this instr uction, always ask your healthcare professional. [employer] disclaims any nina anty or liability for your use of this information. documented in this encounter Progress Notes Ying Price FNP - 06/25/2018 12:20 PM PDT Family Medicine Acute Visit Date of Service: 06/25/18, 12:24 PM Providers Involved in Care of Patient: Joni as of 06/25/2018 PCP: Miguel A Peraza PA-C Encounter Provider: MAINE Zhang Chief Complaint: Pt is here today due to vomiting and diarrhea that started a few days ago. Pt is unsure if he has had any fevers. Pt said he feels nauseas and has stomach pain. Pt sa id he has been trying to stay hydrated. HPI: Mr. Castañeda is presents today with vomiting and diarrhea concerns. Patient explains three days ago he woke up at 430 am with severe acid reflux then developed nausea and vomiting. He continued to have nausea vomiting 5-6 times the first day, has less ened since then due to decreased oral intake. Has really stinky burps. Developed diarrhea ye sterday, has had 2-3 episodes since. No blood in stool Has had some blood streaks in vomit. Takes famotidine daily at bedtime but has been unable to take since he has been sick. No sick contacts, partner isnt sick so they arent sure about food poisoning. Has struggled to keep fluids down, has felt warm and sweaty but hasnt checked temperature, feeling hot and sweaty presently but doesn't have a fever at time of appointment. No alcohol or drug use, except marijuana occasionally. Does not use on a daily basis Their chronic medical issues include Patient Active Problem List Diagnosis Cervical pain Left-sided low back pain with left-sided sciatica Left thigh pain Recurrent kidney stones BMI 31.0-31.9,adult Mixed hyperlipidemia Prediabetes Family history of pancreatic cancer Family history of colon cancer Carpal tunnel syndrome of left wrist History of adenomatous polyp of colon ROS: Review of Systems Constitutional: Negative for chills and fever. HENT: Negative for congestion and sore throat. Respiratory: Negative for cough. Cardiovascular: Negative for chest pain. Gastrointestinal: Positive for abdominal pain, diarrhea, heartburn, nausea and vomiting. Ne gative for blood in stool. Genitourinary: Negative for dysuria, frequency and urgency. Allergies: Allergies Allergen Reactions Pineapple Anaphylaxis Bromelains [...] this medication, Disp: 20 tablet, Rfl: 0 promethazine 25 mg oral tablet, Take 1 tablet by mouth four times daily as needed for nause a/vomiting., Disp: 20 tablet, Rfl: 0 tiZANidine 4 mg oral tablet, Take 1 tablet by mouth every six hours as needed. Max: 36 mg / day., Disp: 60 tablet, Rfl: 2 Physical Exam: BP 104/78 | Pulse 71 | Temp (Src) 36.6 C (97.9 F) (Oral) | Wt 83.9 kg (185 lb) | SpO2 9 6% | BMI 31.76 kg/(m^2) Physical Exam HENT: Head: Normocephalic. Mouth/Throat: Oropharynx is clear and moist. Eyes: Conjunctivae are normal. Cardiovascular: Normal rate and regular rhythm. Pulmonary/Chest: Effort normal and breath sounds normal. Abdominal: He exhibits no distension, no ascites and no mass. There is tenderness in the ep igastric area and left upper quadrant. There is no rigidity, no guarding and no CVA tenderne ss. Assessment and Plan: (A08.4) Viral gastroenteritis (primary encounter diagnosis) Promethazine provided for nausea. Encouraged supportive care with adequate hydration, bland foods and electrolyte replacement. Expect improvement over the next 3-5 days. Written instr uctions provided, notified of Saturday clinic if symptoms worsen or fail to improve, may con vessel ordinary seaman additional laboratory evaluation. Ying GROVE, [facility] Family Medicine P: [phone] F: [phone] documented in this encounter Plan of Treatment Not on filedocumented as of this encounter Visit Diagnoses + + | Diagnosis | + + | Viral gastroenteritis - Primary Intestinal infection due to other organism, not | | elsewhere classified | + + documented in this encounter
--- OUTSIDE RECORDS SUMMARY | ~2020-05-06 | XMS | Encounter Summary ---
Demographics + + + | Address | GENERAL DELIVERY | | | [place] [address] | + + + | Home Phone [...] [place] | | | | | [address] | | + + + + + Care Team Providers + +------+ + | Care Granular Operator Name | Role | Phone | [...] | | esophagitis | [place], [place] | [address] | | | | | presence not | [address] | Phone: | | | | | specified | Phone: | [phone] | | | | | Procedures | [phone] | Fax: | | | | | REQUEST TO | Fax: | [phone] | | | | | SURGERY | [phone] | | | | | | PHARMACY TECHNICIAN INSTRUCTOR | | | | | | | MO UPPER GI | | | | | | | ENDOSCOPY,DI | | | | | | | AGNOSIS [place] | | | | | | | UPPER GI | | | | | | | ENDOSCOPY,BI | | | | | | | OPSY MO UP | | | | | | [...] [address] | | | | | [place], | [place], [place] | | | | | [place] [address] | [address] | | | | | [phone] | [phone] | | | | | | | [...] than 101 degrees F.) Difficulty breathing [facility] Tooling Specialist [phone] documented in this encounter Medications at Time [...] + + | [facility] | [address] | [place], [place] | [phone] | | [facility] | [facility] | [address] | | + + + + + [...] | | | | | | CPT Code(s):65479 x 2 | | | | | |CPT Code(s): | | | | | |47136 x 2 | | | | + [...] [address] | [place] | [phone] | | [facility] | [place] | [address] | | + + + + + [...]
--- OUTSIDE RECORDS SUMMARY | ~2020-05-06 | XMS | Encounter Summary ---
Demographics + + + | Address | GENERAL DELIVERY | | | [place] [address] | + + + | Home Phone [...] [place] | | | | | [address] | | + + + + + Care Team Providers + +------+ + | Care Bottle And Glass Inspector Name | Role | Phone | + +------+ + | Nathaniel Figueroa MD,MPH | PCP | Unavailable | + +------+ + Encounter Details +--------+ + + + + | Date | Type | Department | Care Team | Description | +--------+ + + + + | 04/19/ | Hospital | Diagnostic Imaging | | | | 2015 | Encounter | at [facility] | | | | | | [address] | | | | | | [place] | | | | | | [address] | | | | | | [phone] | | | +--------+ + + + [...] + +--------+ + + + | X-RAY SPINE | Routin | 04/19/2016 | Left-sided low | Results for this | | LUMBOSACRAL 3 VIEWS | e | 1:45 PM | back pain with | procedure are in the | | | | PDT | left-sided sciatica | results section. | + +--------+ + + + documented in this encounter Results X-RAY SPINE LUMBOSACRAL 3 VIEWS (04/19/2016 1:45 PM PDT) + + | Specimen | + + | | + + + + + | Narrative | Performed At | + + + | [address] [place] [address] | [facility] | | [place] [address] | [facility] | | [phone] Name: CHUCK SANTOS Phys: | RADIOLOGY | | NATHANIEL FIGUEROA : 1975 Sex: M CSN: | | | [id number] MR# [id number] Exam Date: 04/19/2016 | | | EXAM: [...] Transcribed Date/Time: 04/19/2016 | | | 14:28 Lime Kiln Worker: VAL | | + + + + + | Procedure Note | + + | Interface, Radiology Results - 04/19/2016 2:32 PM PDT [address] | | [address] [place] [place] [address] | | Name: CHUCK SANTOS Phys: NATHANIEL FIGUEROA : 1975 Sex: M CSN: | | [id number] MR# [id number] Exam Date: 04/19/2016 EXAM:X-RAY SPINE LUMBOSACRAL 3 [...] | | |Transcribed Date/Time: 04/19/2016 14:28 | |Lime Kiln Worker: FLUENCY | | | | | [...]
--- OUTSIDE RECORDS SUMMARY | ~2020-05-06 | XMS | Encounter Summary ---
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 | + + + Encounter Details +--------+ + + + + | Date | Type | Department | Care Team | Description | +--------+ + + + + | 10/31/ | Emergency | Emergency | Mendez Magana, | | | 2020 | | Department at [facility] | MD [address] | | | | | Hospital [address] | [place], [place] | | | | | [place], | [address] | | | | | [place] [address] | [phone] | | | | | [phone] | | | +--------+ + + + [...] Discharge Instructions Instructions Mendez Magana MD - 10/31/2019Return to the emergency department for increas ing abdominal pain, recurrent nausea vomiting, not tolerating oral intake, fever, weakness, fainting, decreased urine output, throwing up blood or coffee-grounds, bloody or black stool s. Drink plenty of fluids and follow a clear liquid diet for the next 12-24 hours. Gradual ly advance diet as tolerated. Use Zofran if needed for recurrent nausea or vomiting. Please promptly call the provider or clinic recommended by your ED physician after being di scharged from the emergency department to schedule a follow-up visit. Primary care provider clinics can be contacted Saturday through Saturday 8:00 AM to 5:00 PM and specialty clinics through Saturday 8:00 AM to 5:00 PM. You should try to be seen in follow-up or talk to the follow-up provider's nurse in the next 3 days. You may be asked to follow-up with a dif ferent provider or clinic in order to get you seen sooner. Thank you for letting us serve you today. AttachmentsThe following attachments cannot be sent through Care Everywhere.Nausea and Vomi ting (Monegasque)Abdominal Pain (Monegasque)documented in this encounter Medications at Time of [...] + + + +---------+ + + | ondansetron ODT 4 | Dissolve 1 tablet on | 6 | 0 | 10/31/19 | | | mg oral | tongue and swallow | tablet | | 20 | | | tablet,disintegratin | every twelve hours | | | | | | g | as needed. | | | | | + + [...] + | COMPLETE METABOLIC | Urgent | 10/31/2019 | | Results for this | | SET | | 3:46 PM | | procedure are in the | | (NA,K,CL,CO2,BUN,CRE | | PST | | results section. | | AT,GLUC,CA,AST,ALT,B | | | | | | FRED TOTAL,ALK | | | | | | PHOS,ALB,PROT TOTAL) | | | | | + +--------+ + + + | LIPASE, PLASMA | Urgent | 10/31/2019 | | Results for this | | | | 3:46 PM | | procedure are in the | | | | PST | | results section. | + +--------+ + + + | CBC W/DIFF, REFLEX | Urgent | 10/31/2019 | | Results for this | | | | 3:26 PM | | procedure are in the | | | | PST | | results section. | + +--------+ + + + | CBC AND AUTO DIFF | Urgent | 10/31/2019 | | Results for this | | | | 3:26 PM | | procedure are in the | | | | PST | | results section. | + +--------+ + + + documented in this encounter Results LIPASE, PLASMA (10/31/2019 3:46 PM PST) + +-------+ + + + | Component | Value | Ref Range | Performed | Pathologist | | | | | At | Signature | + +-------+ + + + | LIPASE | 18 | 5 - 57 U/L | [facility] [...] + + | [facility] | [address] | [place] | [phone] | | MEDICAL CENTER | [address] | [address] | | + + + + + COMPLETE METABOLIC SET (NA,K,CL,CO2,BUN,CREAT,GLUC,CA,AST,ALT,BILI TOTAL,ALK PHOS,ALB,PROT TOTAL) (10/31/2019 3:46 PM PST) + +---------+ + + + | Component | Value | Ref Range | Performed | Pathologist | | | | | At | Signature | + +---------+ + + + | GLUCOSE, | 113 (H) | 70 - 105 mg/dL | [facility] | | | PLASMA | | | A MEDICAL | | | (LAB) | | | CENTER | | + +---------+ + + + | BUN, PLASMA | 14 | 6 - 26 mg/dL | [facility] [...] +---------+ + + + | CALCIUM, | 9.7 | 8.5 - 10.8 | [facility] | | | PLASMA | | mg/dL | A MEDICAL | | | (LAB) | | | CENTER | | + +---------+ + + + | BILIRUBIN | 0.2 | 0.2 - 1.2 mg/dL | [facility] | | | TOTAL | | | A MEDICAL | | | | | | CENTER | | + +---------+ + + + | TOTAL | 6.8 | 5.8 - 8.5 g/dL | [facility] | | | PROTEIN, | | | A MEDICAL | | | PLASMA | | | CENTER | | | (LAB) | | | | | + +---------+ + + + | ALBUMIN, | 4.4 [...] +---------+ + + + | AST(SGOT) | 19 [...] | | A MEDICAL | | | FINNISH | | | CENTER | | + +---------+ + + + | EGFR NON | >60 | >60 mL/min | [facility] | | | -ALIX | | | A MEDICAL | | | RICAN | | | CENTER | | + +---------+ + + + | ANION GAP | 13 | 7 - 16 mmol/L | [facility] | | | | | | A MEDICAL | | | | | | CENTER | | + +---------+ + + + | BUN/CREATIN | 13 | 6 - 20 | [facility] | | | INE RATIO | [...] using the MDRD equation recommended by the [facility] | | Kidney Disease Education Program. Estimated GFR Interpretive | [facility] | | Information: <60 mL/min/1.73 sq [...] | + + + + + | [facility] | And | [place] | [phone] | | [facility] | Streets | [address] | | + + + + + CBC AND AUTO DIFF (10/31/2019 3:26 PM PST) + + + + + + | Component | Value | Ref Range | Performed | Pathologist | | | | | At | Signature | + + + + + + | WHITE CELL | 6.57 | 3.50 - 10.80 | [facility] | | | COUNT | | K/cu mm | A MEDICAL | | | | | | CENTER | | + + + + + + | RED CELL | 4.69 | 4.50 - 6.00 | [facility] | | | COUNT | | M/cu mm | A MEDICAL | | | | | | CENTER | | + + + + + + | HEMOGLOBIN | 13.7 | 13.5 - 17.5 | [facility] | | | | | g/dL | A MEDICAL | | | | | | CENTER | | + + + + + + | HEMATOCRIT | 40.9 (L) | 41.0 - 53.0 % | [facility] | | | | | | A MEDICAL | | | | | | CENTER | | + + + + + + | MCV | 87.2 | 80.0 - 96.0 fL | [facility] | | | | | | A MEDICAL | | | | | | CENTER | | + + + + + + | MCH | 29.2 | 28.0 - 34.7 pg | [facility] | | | | | | A MEDICAL | | | | | | CENTER | | + + + + + + | MCHC | 33.5 | 33.0 - 35.5 | [facility] | | | | | g/dL | A MEDICAL | | | | | | CENTER | | + + + + + + | RDW | 13.0 | 11.5 - 14.5 % | [facility] | | | | | | A MEDICAL | | | | | | CENTER | | + + + + + + | PLATELET | 234 | 150 - 400 K/cu | [facility] | | | COUNT | | mm | A MEDICAL | | | | | | CENTER | | + + + + + + | MPV | 9.8 | 7.5 - 11.2 fL | [facility] | | | | | | A MEDICAL | | | | | | CENTER | | + + + + + + | NRBC% | 0.0 | 0.0 - 0.3 % | [facility] | | | | | | A MEDICAL | | | | | | CENTER | | + + + + + + | NRBC# | 0.00 | 0.00 - 0.02 | [facility] | | | | | K/cu mm | A MEDICAL | | | | | | CENTER | | + + + + + + | NEUTROPHIL | 38.9 (L) | 50.0 - 70.0 % | [facility] | | | % | | | A MEDICAL | | | | | | CENTER | | + + + + + + | LYMPHOCYTE | 48.9 (H) | 18.0 - 42.0 % | [facility] | | | % | | | A MEDICAL | | | | | | CENTER | | + + + + + + | MONOCYTE % | 7.3 | 3.5 - 9.0 % | [facility] | | | | | | A MEDICAL | | | | | | CENTER | | + + + + + + | EOS % | 4.3 (H) | 1.0 - 3.0 % | [...] + + + + + + | IG% | 0.3 | 0.0 - 1.0 % | [facility] | | | | | | A MEDICAL | | | | | | CENTER | | + + + + + + | NEUTROPHIL | 2.56 | 1.80 - 7.70 | [facility] | | | # | | K/cu mm | A MEDICAL | | | | | | CENTER | | + + + + + + | LYMPHOCYTE | 3.21 | 1.00 - 4.80 | [facility] | | | # | | K/cu mm | A MEDICAL | | | | | | CENTER | | + + + + + + | MONOCYTE # | 0.48 | 0.10 - 0.90 | [facility] | | | | | K/cu mm | A MEDICAL | | | | | | CENTER | | + + + + + + | EOS # | 0.28 | 0.00 - 0.50 | [facility] | [...] + + + + + + | IG# | 0.02 | 0.00 - 0.10 | [facility] | | | | | K/cu mm | A MEDICAL | | | | | | CENTER | | + + + + + + + + | Specimen | + + | Blood | + + + + + + + | Performing | Address | City/State/Zipcode | Phone Number | | Organization | | | | + + + + + | [facility] | [address] | [place], [place] | [phone] | | [facility] | [facility] | [address] | | + + + + + documented in this encounter Visit Diagnoses + + | Diagnosis | + + | Vomiting, intractability of vomiting not specified, presence of nausea not specified, | | unspecified vomiting type - Primary | + + | Epigastric pain Abdominal pain, epigastric | + + documented in this encounter Administered Medications + +--------+ +------+------+------+ | Medication Order | MAR | Action | Dose | Rate | Site | | | Action | Date | | | | + +--------+ +------+------+------+ | ondansetron (ZOFRAN) injection | Given | 10/31/19 | 4 mg | | | | 4 mg 4 mg, intravenous, ONCE, | | 20 3:25 | | | | | dose, 10/31/19 at 1600 | | PM PST | | | | + +--------+ +------+------+------+ +---+---+ | | | +---+---+ + +-------+ +-------+---+---+ | pantoprazole (PROTONIX) | Given | 10/31/19 | 40 mg | | | | injection 40 mg 40 mg, | | 20 5:23 | | | | | intravenous, ONCE, 1 dose, Sat | | PM PST | | | | | 10/31/19 at 1745 | | | | | | + +-------+ +-------+---+---+ +---+---+ | | | +---+---+ + +---------+ + +---+---+ | sodium chloride (NS) 0.9 % | New Bag | 10/31/19 | 1,000 mL | | | | bolus 1,000 mL 1,000 mL, | | 20 4:17 | | | | | intravenous, ONCE, 1 dose, Sat | | PM PST | | | | | 10/31/19 at 1615 | | | | | | + +---------+ + +---+---+ +---+---+ | | | +---+---+ documented in this encounter"
--- OUTSIDE RECORDS SUMMARY | ~2020-05-06 | XMS | Encounter Summary ---
Demographics + + + | Address | GENERAL DELIVERY | | | [place] [address] | + + + | Home Phone [...] [place] | | | | | [address] | | + + + + + Care Team Providers + +------+ + | Care Tool Maker Apprentice Name | Role | Phone | + +------+ + | Miguel A Peraza PA-C | PCP | | + +------+ + Reason for Visit + + + | Reason | Comments | + + + | Refill Request | tiZANidine | + + + Encounter Details +--------+--------+ + + + | Date | Type | Department | Care Team | Description | +--------+--------+ + + + | 06/16/ | Refill | [facility] | Miguel A Peraza PA-C | Refill Request | | 2017 | | Medicine [address] | (tiZANidine) | | | | [address] [place], | [place], [place] | | | | | [place] [address] | [address] | | | | | [phone] | [phone] | | | | | | | [...]
--- OUTSIDE RECORDS SUMMARY | ~2020-05-06 | XMS | Encounter Summary ---
Demographics + + + | Address | GENERAL DELIVERY | | | [place] [address] | + + + | Home Phone [...] [place] | | | | | [address] | | + + + + + Care Team Providers + +------+ + | Care Sand Cutter Operator Name | Role | Phone | [...] mg) | | | | [address] [place], | [place], [place] | | | | | [place] [address] | [address] | | | | | [phone] | [phone] | | | | | | | [...]
--- OUTSIDE RECORDS SUMMARY | ~2020-05-06 | XMS | Encounter Summary ---
Demographics + + + | Address | GENERAL DELIVERY | | | [place] [address] | + + + | Home Phone [...] [place] | | | | | [address] | | + + + + + Care Team Providers + +------+ + | Care Forest Technician Name | Role | Phone | [...] | | | | | | [place] [address] | | | | | | [phone] | | | +--------+ + + + [...]
--- OUTSIDE RECORDS SUMMARY | ~2020-05-06 | XMS | Encounter Summary ---
Demographics + + + | Address | [place]AL DELIVERY | | | [place] [address] | + + + | Home Phone [...] [place] | | | | | [address] | | + + + + + Care Team Providers + +------+ + | Care Vegetable Trimmer Name | Role | Phone | + [...] | | | | | | [place] [address] | | | | | | [phone] | | | +--------+ + + + [...]
--- OUTSIDE RECORDS SUMMARY | ~2020-05-06 | XMS | Encounter Summary ---
Demographics + + + | Address | [place]AL DELIVERY | | | [place] [address] | + + + | Home Phone [...] [place] | | | | | [address] | | + + + + + Care Team Providers + +------+ + | Care Best Second Jobs Name | Role | Phone | + [...] | | | | | [address] [place], | | | | | | [place] [address] | | | | | | [phone] | | | +--------+ + + + [...] | + + + + + | [facility] | [address] [place] [address] | [place], [place] | | | FAMILY MEDICINE | | [address] | | + + + + + documented in this encounter Visit Diagnoses + + | Diagnosis | + + | Elevated BP Elevated blood pressure reading without diagnosis of hypertension | + + documented in this encounter"
--- OUTSIDE RECORDS SUMMARY | ~2020-05-06 | XMS | Encounter Summary ---
Demographics + + + | Address | GENERAL DELIVERY | | | [place] [address] | + + + | Home Phone [...] [place] | | | | | [address] | | + + + + + Care Team Providers + +------+ + | Care Admitting Supervisor Name | Role | Phone | [...] ) | | | Staff | [address] [facility], | | | | | | [place] [address] | | | | | | [phone] | | | +--------+ + + + [...]
--- OUTSIDE RECORDS SUMMARY | ~2020-05-06 | XMS | Encounter Summary ---
Demographics + + + | Address | GENERAL DELIVERY | | | [place] [address] | + + + | Home Phone [...] [place] | | | | | [address] | | + + + + + Care Team Providers + +------+ + | Care Heel Seat Pounder Name | Role | Phone | + +------+ + | Nathalie Castillo | PCP | | + +------+ + Encounter Details +--------+ + + + + | Date | Type | Department | Care Team | Description | +--------+ + + + + | 08/03/ | Results | NON-[facility] | Kari Amin MD | | | 2012 | Only | Department | [facility] | | | | | | Health Dept [address] | | | | | | [facility], | | | | | | [place] [address] | | | | | | [phone] | | | | | | | [...] + + | [facility] | And | [place], [place] | [phone] | | MEDICAL CENTER | [address] | [address] | | + + + + + TYPE AND SCREEN (08/03/2013 12:45 PM PST) + + + + + + | Component | Value | Ref Range | Performed | Pathologist | | | | | At | Signature | + + + + + + | [facility] | O | | [facility] | | | | | | A [...] | + + + + + | [facility] | [address] | [place], [place] | [phone] | | MEDICAL CENTER | Streets | [address] | | + + + + + CBC W/DIFF REFLEX (08/03/2013 12:45 PM PST) + +-------+ + + + | Component | Value | Ref Range | Performed | Pathologist | | | | | At | Signature | + +-------+ + + + | WHITE BLOOD | 5.5 | 3.2 - 11.0 X10 | [facility] | | | CELL COUNT | | 3/uL | A MEDICAL | | | | | | CENTER | | + +-------+ + + + | HEMOGLOBIN | 15.1 | 12.0 - 18.0 | [facility] | | | | | g/dL | [...] + | [facility] | [address] | [place], [place] | [phone] | | [facility] | [facility] | [address] | | + + + + + [...] | + + + + + | [facility] | [address] | [place] | [phone] | | MEDICAL CENTER | [facility] | [address] | | + + + + + [...] | + + + + + | [facility] | | [place] | [phone] | | [facility] | [facility] | [address] | | + + + + + documented in this encounter Visit Diagnoses Not on filedocumented in this encounter"
--- OUTSIDE RECORDS SUMMARY | ~2020-05-06 | XMS | Encounter Summary ---
Demographics + + + | Address | [place]AL DELIVERY | | | [place] [address] | + + + | Home Phone [...] [place] | | | | | [address] | | + + + + + Care Team Providers + +------+ + | Care Editor At Large Name | Role | Phone | + +------+ + | Violeta Parker DO | PCP | | + +------+ + Encounter Details +--------+ + + + + | Date | Type | Department | Care Team | Description | +--------+ + + + + | 08/25/ | Telephone | Surgical Services | [place], | | | 2017 | | [facility] | Angel Woodall MD [address] | | | | | [address] | [address] | | | | | [place] | [place] | | | | | [address] | [address] | | | | | [phone] | [phone] | | | | | | | [...]
--- OUTSIDE RECORDS SUMMARY | ~2020-05-06 | XMS | Encounter Summary ---
Demographics + + + | Address | GENERAL DELIVERY | | | [place] [address] | + + + | Home Phone [...] [place] | | | | | [address] | | + + + + + Care Team Providers + +------+ + | Care Tobacco Primer Machine Operator Name | Role | Phone | + +------+ + | Miguel A Peraza PA-C | PCP | | + +------+ + Encounter Details +--------+ + + + + | Date | Type | Department | Care Team | Description | +--------+ + + + + | 03/18/ | Stock Sorter | [facility] | Miguel A Peraza PA-C | Hypercholesterolemia | | 2018 | | Medicine [address] | with LDL greater | | | | [address] [place], | [place], [place] | than 190 mg/dL | | | | [place] [address] | [address] | (Primary Dx) | | | | [phone] | | | | | | | [...]
--- OUTSIDE RECORDS SUMMARY | ~2020-05-06 | XMS | Encounter Summary ---
Demographics + + + | Address | GENERAL DELIVERY | | | [place] [address] | + + + | Home Phone [...] [place] | | | | | [address] | | + + + + + Care Team Providers + +------+ + | Care Events Solutions Consultant Name | Role | Phone | [...] | | | | | | [place] [address] | | | | | | [phone] | | | +--------+--------+ + + + [...]
--- OUTSIDE RECORDS SUMMARY | ~2020-05-06 | XMS | Encounter Summary ---
Demographics + + + | Address | [place]AL DELIVERY | | | [place] [address] | + + + | Home Phone [...] [place] | | | | | [address] | | + + + + + Care Team Providers + +------+ + | Care Insurance Healthcare Representative Name | Role | Phone | [...] | | | | | | [place] | | | | | | [address] | | | | | | [phone] | | | +--------+--------+ + + + [...]
--- OUTSIDE RECORDS SUMMARY | ~2020-05-06 | XMS | Encounter Summary ---
Demographics + + + | Address | GENERAL DELIVERY | | | [place] [address] | + + + | Home Phone [...] [place] | | | | | [address] | | + + + + + Care Team Providers + +------+ + | Care It Desktop Support Technician Name | Role | Phone | + +------+ + | Violeta Parker DO | PCP | | + +------+ + Encounter Details +--------+------+ + + + | Date | Type | Department | Care Team | Description | +--------+------+ + + + | 03/06/ | Lab | Laboratory at | | Chronic RLQ pain | | 2019 | | [facility] | | | | | | [place] [address] | | | | | [address] [place] | | | | | | [address] | | | | | | [phone] | | | +--------+------+ + + + [...] | | A MEDICAL | | | ETHIOPIAN | | | CENTER | | + [...] | [facility] | [address] | [place] | [phone] | | [facility] | [place] | [address] | | + + + + + documented in this encounter Visit Diagnoses + + | Diagnosis | + + | Chronic RLQ pain Abdominal pain, right lower quadrant | + + documented in this encounter"
--- OUTSIDE RECORDS SUMMARY | ~2020-05-06 | XMS | Encounter Summary ---
Demographics + + + | Address | GENERAL DELIVERY | | | [place] [address] | + + + | Home Phone [...] [place] | | | | | [address] | | + + + + + Care Team Providers + +------+ + | Care All Around Patternmaker Name | Role | Phone | + [...] | Visit | Medicine [address] | DRILLING FOREMAN [address] | gastroenteritis | | | | [address] [place], | [place] | (Primary Dx) | | | | [place] [address] | [address] | | | | | [phone] | [phone] | | | | | | | [...] encounter Patient Instructions Patient Instructions Ying Price, [facility] - 06/25/2018 12:45 PM PDTFormatting of this [...] about "Gastroenteritis: Care Instructions", log into your [employer] account at [email or web address]. You can enter N142 in the "Health Library" search box. Not on [employer]? Review the Simplifyhart section of your After Visit Summary for directions on ho w to sign up. Current as of: August 17, 2017 Content Version: 11.7 [id number] [employer] Care instructions adapted under license by [facility] [employer] [place]. If you have questions about a medical condition or this instr uction, always ask your healthcare professional. [employer] disclaims any nina anty or liability for [...] worsen or fail to improve, may con mobile paramedical examiner additional laboratory evaluation. Ying GROVE, [facility] P: [phone] F: [phone] documented in this encounter Plan of Treatment Not on filedocumented as of this encounter Visit Diagnoses + + | Diagnosis | + + | Viral gastroenteritis - Primary Intestinal infection due to other organism, not | | elsewhere classified | + + documented in this encounter
--- OUTSIDE RECORDS SUMMARY | ~2020-05-06 | XMS | Encounter Summary ---
Demographics + + + | Address | GENERAL DELIVERY | | | [place] [address] | + + + | Home Phone [...] [place] | | | | | [address] | | + + + + + Care Team Providers + +------+ + | Care Machinist Name | Role | Phone | + [...] (tiZANidine) | | | | [address] [place], | [place], [place] | | | | | [place] [address] | [address] | | | | | [phone] | [phone] | | | | | | | [...]
--- OUTSIDE RECORDS SUMMARY | ~2020-05-06 | XMS | Encounter Summary ---
Demographics + + + | Address | GENERAL DELIVERY | | | [place] [address] | + + + | Home Phone | | + + + | Preferred Language | Unknown | + + + | Marital Status | Single | + + + | Scientology Affiliation | NRP | + + + [...] [place] | | | | | [address] | | + + + + + Care Team Providers + +------+ + | Care Fisher Lampara Net Name | Role | Phone | + +------+ + | Violeta Parker DO | PCP | | + +------+ + Encounter Details +--------+ + + + + | Date | Type | Department | Care Team | Description | +--------+ + + + + | 12/12/ | Outside | [facility] | Violeta Parker, | | | 2019 | Referral | [facility] [address] | DO [address] | | | | Order | [address] | [place] [address] | | | | | [place] | [phone] | | | | | [address] | | | +--------+ + + + [...]
--- OUTSIDE RECORDS SUMMARY | ~2020-05-06 | XMS | Encounter Summary ---
Demographics + + + | Address | GENERAL DELIVERY | | | [place] [address] | + + + | Home Phone [...] [place] | | | | | [address] | | + + + + + Care Team Providers + +------+ + | Care [place] Name | Role | Phone | + [...] | | | | | | [place] [address] | | | | | | [phone] | | | +--------+ + + + [...]
--- OUTSIDE RECORDS SUMMARY | ~2020-05-06 | XMS | Encounter Summary ---
Demographics + + + | Address | GENERAL DELIVERY | | | [place] [address] | + + + | Home Phone | | + + + | Preferred Language | Unknown | + + + | Marital Status | Single | + + + | Religion Affiliation | NRP | + + + [...] [place] | | | | | [address] | | + + + + + Care Team Providers + +------+ + | Care Service Dog Trainer Name | Role | Phone | + [...] HCL 4MG | | | | [place] [address] | | [place]) | | | | [phone] | | | +--------+ + + + [...]
--- OUTSIDE RECORDS SUMMARY | ~2020-05-06 | XMS | Encounter Summary ---
Demographics + + + | Address | GENERAL DELIVERY | | | [place] [address] | + + + | Home Phone [...] [place] | | | | | [address] | | + + + + + Care Team Providers + +------+ + | Care Midlevel Provider Name | Role | Phone | + [...]
--- OUTSIDE RECORDS SUMMARY | ~2020-05-06 | XMS | Encounter Summary ---
Demographics + + + | Address | [address]AL DELIVERY | | | [place] [address] | + + + | Home Phone [...] [place] | | | | | [address] | | + + + + + Care Team Providers + +------+ + | Care Hoop Maker Helper Machine Name | Role | Phone | + [...] | | hyperlipidemia | | | | [address] | | | | | | [phone] | | | +--------+------+ + + + [...] (H) | 101 - 199 mg/dL | [facility] | | | (LAB) | | | A MEDICAL | | | | | | CENTER | | + + + + + + | TRIGLYCERID | 190 (H) | 45 - 150 mg/dL | [facility] | | | ES | | | A MEDICAL | | | | | | CENTER | | + + + + + + | HDL | 34 (L) | >40 mg/dL | [facility] | | | CHOLESTEROL | | | A MEDICAL | | | | | | CENTER | | + + + + + + | LDL | 200 (H) | <100 mg/dL | [facility] | | | CHOLESTEROL | | | A MEDICAL | | | , | | | CENTER | | | CALCULATED | | | | | + + + + + + | VLDL | 38 (H) | 9 - 30 mg/dL | [facility] | | | CHOLESTEROL | | | [...] 30 mg/dL higher than | [facility] | | that for LDL cholesterol. Cardiac Risk Ratio Interpretation: | [facility] | | Interpretation Cardiac Risk Ratio [...] [facility] | And | [place] | [phone] | | [facility] | Streets | [address] | | + + + + + COMPLETE METABOLIC SET (NA,K,CL,CO2,BUN,CREAT,GLUC,CA,AST,ALT,BILI TOTAL,ALK PHOS,ALB,PROT TOTAL) (09/12/2016 10:49 AM PST) + + + + + + | Component | Value | Ref Range | Performed | Pathologist | | | | | At | Signature | + + + + + + | GLUCOSE, | 101 | 70 - 105 mg/dL | [facility] | | | PLASMA | | | A MEDICAL | | | (LAB) | | | CENTER | | + + + + + + | BUN, PLASMA | 13 | 6 - 26 mg/dL | [facility] | | | (LAB) | | | A MEDICAL | | | | | | CENTER | | + + + + + + | CREATININE, | 1.3 | 0.9 - 1.3 mg/dL | [facility] | | | PLASMA | | | A MEDICAL | | | | | | CENTER | | + + + + + + | SODIUM, | 142 | 137 - 146 | [facility] | | | PLASMA | | mmol/L | A MEDICAL | | | (LAB) | | | CENTER | | + + + + + + | POTASSIUM, | 4.1 | 3.4 - 5.3 | [facility] | | | PLASMA | | mmol/L | A MEDICAL | | | (LAB) | | | CENTER | | + + + + + + | CHLORIDE, | 101 | 96 - 106 mmol/L | [facility] | | | PLASMA | [...] | | A MEDICAL | | | INDONESIAN | | | CENTER | | + [...] | YesComment: 15.5 hr pc | | [facility] | | | HOURS [place] [...] equation recommended by the | [facility] | | National Kidney Disease Education Program. Estimated GFR | [facility] | | Interpretive Information: <60 mL/min/1.73 [...] HOSPITAL | And | [place] | [phone] | | [facility] | Streets | [address] | | + + + + + [...] [place] | | Normal Range: <6% | [facility] | | Good Control: <7% | | | Additional action suggested: >8% Non-Diabetic | | | Ranges: 4-6% Hematology Technician's Glycohemoglobin | | | Diabetic Ranges: Normal Range: | | | 4.0-6.0% Good Control: | | | 6.0-8.0% Poor Control: | | | >8.0% | | + + + + + + + + | Performing | Address | City/State/Zipcode | Phone Number | | Organization | | | | + + + + + | [facility] | And | [place] | [phone] | | [facility] [place] | [address] | | + + + + + [...]
--- OUTSIDE RECORDS SUMMARY | ~2020-05-06 | XMS | Encounter Summary ---
Demographics + + + | Address | [address] | | | [place] [address] | + + + | Home Phone [...] Author + + + | Author | [facility] | + + + | Organization | [facility] | + + + | Address | Unknown | + + + | Phone | Unavailable | + + + Support + + + + + | Name | Relationship | Address | Phone | + + + + + | Neda Santos | ECON | [place] | | | | | [address] | | + + + + + Care Team Providers + +------+ + | Care Waiter Waitress Name | Role | Phone | + +------+ + | Nathaniel Figueroa MD,MPH | PCP | Unavailable | + +------+ + Encounter Details +--------+ + + + + | Date | Type | Department | Care Team | Description | +--------+ + + + + | 04/19/ | Hospital | Diagnostic Imaging | | | | 2015 | Encounter | at [facility] | | | | | | [address] | | | | | | [place] | | | | | | [address] | | | | | | [phone] | | | +--------+ + + + [...] | + + + | [address] | [facility] | | [place] [address] | DEPARTMENT | | [phone] Name: CHUCK SANTOS Phys: | RADIOLOGY | | NATHANIEL FIGUEROA : 1975 Sex: M CSN: | | | [id number] MR# [id number] Exam Date: 04/19/2016 | | | EXAM: [...] Transcribed Date/Time: 04/19/2016 14:11 | | | Client Manager: FLUENCY | | + + + + + | Procedure Note | + + | Interface, Radiology Results - 04/19/2016 2:16 PM PDT [address] | | [address] [place] [address] | | Name: TOMCHUCK Phys: NATHANIEL FIGUEROA : 1975 Sex: M CSN: | | [id number] MR# [id number] Exam Date: 04/19/2016 EXAM:X-RAY HIP 2 VIEWS [...] | | |Transcribed Date/Time: 04/19/2016 14:11 | |Client Manager: VAL | | | | | | | + + + +---------+ + + | Performing | Address | City/State/[facility] | Phone Number | | Organization [...]
--- OUTSIDE RECORDS SUMMARY | ~2020-05-06 | XMS | Encounter Summary ---
Demographics + + + | Address | [address]ERY | | | [place] [address] | + + + | Home Phone [...] [place] | | | | | [address] | | + + + + + Care Team Providers + +------+ + | Care Armhole Raiser Lockstitch Name | Role | Phone | + +------+ + | Violeta Parker DO | PCP | | + +------+ + Encounter Details +--------+ + + + + | Date | Type | Department | Care Team | Description | +--------+ + + + + | 08/04/ | Document-Sc | [facility] | [place], | | | 2018 | [place] | Surgery Clinic [address] | Angel Woodall MD [address] | | | | | [address] | [address] | | | | | [place], [place] | [place] | | | | | [address] | [address] | | | | | [phone] | [phone] | | | | | | | [...]
--- OUTSIDE RECORDS SUMMARY | ~2020-05-06 | XMS | Encounter Summary ---
Demographics + + + | Address | [address]ERY | | | [place] [address] | + + + | Home Phone [...] [place] | | | | | [address] | | + + + + + Care Team Providers + +------+ + | Care Oil Furnace Installer Name | Role | Phone | + +------+ + | Violeta Parker DO | PCP | | + +------+ + Encounter Details +--------+ + + + + | Date | Type | Department | Care Team | Description | +--------+ + + + + | 08/06/ | Abstract | [facility] | [place], | | | 2017 | | Surgery Clinic [address] | Angel Woodall MD [address] | | | | | [address] | [address] | | | | | [place] | [place] | | | | | [address] | [address] | | | | | [phone] | [phone] | | | | | | | [...]
--- OUTSIDE RECORDS SUMMARY | ~2020-05-06 | XMS | Encounter Summary ---
Demographics + + + | Address | [address] DELIVERY | | | [place] [address] | + + + | Home Phone [...] [place] | | | | | [address] | | + + + + + Care Team Providers + +------+ + | Care Arabic Translator Name | Role | Phone | + [...] [address] | | | | | | [address] | | | +--------+ + + + [...] +--------+ + + + documented in this [facility] Results OPERATION RECORD (11/19/2014 7:45 AM PST) + + | Transcriptions | + + | 11/20/2014 9:43 AM [facility] | | REPORT OF [id number] [place], [place] [address], [place] [address] | | CHUCK SANTOS ADAGLADIS OF PROCEDURE: [...] any vomiting, fever or abdominal pain.CHUCK SANTOS [id number] : | | [id number] DATE:CT/MedQDD: 11/19/2014 10:30:49DT: 11/20/2014 07:28:32Job | | #: [id number] Signed 11/30/14 | | 1419 | | | | | | | | | | | | | | Anooradha | | JOURDAN Cuellar JAMES [id number] : [id number] DATE: | |rectum and distally through the [...] | | | | |CHUCK SANTOS | |[id number] : [birth year] | |[id number] | |ADMIT DATE: | | | | | | | | | |KAILEE/Gillian | | | | | | /[id number] | |Electronically Signed 11/30/14 1419 | | [...] | | | | |CHUCK SANTOS | |[id number] : [birth year] | |[id number] | |ADMIT DATE: | + + documented in this encounter Visit Diagnoses Not on filedocumented in this encounter"
--- OUTSIDE RECORDS SUMMARY | ~2020-05-06 | XMS | Encounter Summary ---
Demographics + + + | Address | [address] DELIVERY | | | [place] [address] | + + + | Home Phone [...] [place] | | | | | [address] | | + + + + + Care Team Providers + +------+ + | Care Passenger Agent Name | Role | Phone | [...] [place] | | | | | | [address] | | | | | | [phone] | | | +--------+--------+ + + + [...]
--- OUTSIDE RECORDS SUMMARY | ~2020-05-06 | XMS | Encounter Summary ---
Demographics + + + | Address | [address] | | | [place] [address] | + + + | Home Phone [...] Author + + + | Author | [facility] | + + + | Organization | [facility] | + + + | Address | Unknown | + + + | Phone | Unavailable | + + + Support + + + + + | Name | Relationship | Address | Phone | + + + + + | Neda Castañeda | ECON | [place] | | | | | [address] | | + + + + + Care Team Providers + +------+ + | Care Roustabout Head Name | Role | Phone | + [...] [address] | | | | | | [place], [place] | | | | | | [address] | | | +--------+ + + + [...]
--- OUTSIDE RECORDS SUMMARY | ~2020-05-06 | XMS | Encounter Summary ---
Demographics + + + | Address | [address] | | | [place] [address] | + + + | Home Phone [...] [place] | | | | | [address] | | + + + + + Care Team Providers + +------+ + | Care Diagnostic Technologist Name | Role | Phone | + [...] | | | | | | [place] [address] | | | | | | [phone] | | | +--------+--------+ + + + [...]
--- OUTSIDE RECORDS SUMMARY | ~2020-05-06 | XMS | Encounter Summary ---
Demographics + + + | Address | [address] | | | [place] [address] | + + + | Home Phone [...] [facility] | + + + | Organization | [facility] | + + + | Address | Unknown | + + + | Phone | Unavailable | + + + Support + + + + + | Name | Relationship | Address | Phone | + + + + + | Neda Castañeda | ECON | [place] | | | | | [address] | | + + + + + Care Team Providers + +------+ + | Care Superintendent [employer] Name | Role | Phone | + [...] | | history of | [address] | | | | | colon cancer | [address] | | | | | Procedures | [place] | [place] | | | | | CONSULT TO | [address] | [address] | | | | | SURGERY - | Phone: | Phone: | | | | | GENERAL | [phone] | [phone] | | | | | | Fax: | Fax: | | | | | | [phone] | [phone] | +--------+--------+ + + + + Reason for Visit + + + | Reason | Comments | + + + | Follow-up visit | Pt is here for 6 month f/u for Pre DM and HLD. Pt states that he | | | is having trouble with is left leg falling aslep if he stands or | | | sits to long. | + + + Encounter Details +--------+---------+ + + + | Date | Type | Department | Care Team | Description | +--------+---------+ + + + | 09/12/ | Office | [facility] | Miguel A Peraza PA-C | Prediabetes (Primary | | 2017 | Visit | Medicine [address] | Dx); Need for | | | | [address] [place], | [place], [place] | vaccination; Family | | | | [place] [address] | [address] | history of colon | | | | [phone] | [phone] | cancer; Chronic | | | | | | left-sided low back | | | | | | pain with left-sided | | | | | | sciatica | +--------+---------+ + + + Social [...] + + + | Blood Pressure | 110/74 | 09/12/2017 10:25 AM | | | | | PST | | + + + + + | Pulse | 67 | 09/12/2017 10:25 AM | | | | | PST | | + + + + + | Temperature | - | - | | + + + + + | Respiratory Rate | - | - | | + + + + + | Oxygen Saturation | 98% | 09/12/2017 10:25 AM | | | | | PST | | + + + + + | Inhaled Oxygen | - | - | | | Concentration | | | | + + + + + | Weight | 87.5 kg (193 lb) | 09/12/2017 10:25 AM | | | | | PST | | + + + + + | Height | 162.6 cm (5' 4") | 09/12/2017 10:25 AM | | | | | PST | | + + + + + | Body Mass Index | 33.13 | 09/12/2017 10:25 AM | | | | | PST | | + + + + + documented in this encounter Patient Instructions Patient Instructions Miguel A Peraza PA-C - 09/12/2017 10:30 AM PST1. I placed a referral to general surgery for your follow up colonoscopy. You should hear from them in 1-2 weeks brandon skelton scheduling an appt. Please call our clinic if you do not hear from them in this timefra me. 2. We will recheck your a1c today and call with results and recommendations 3. Try using vaporizer rather than water pipes for cannabis to reduce harm to your lungs 4. Return in 6 months for prediabetes follow-up, or sooner if needed 5. I recommend you work on core strengthening of your back and stomach muscles. This will h elp improve you low back and leg pain. Electronically signed by Miguel A Peraza PA-C at 017 11:18 AM PST documented in this encounter Progress Notes Miguel A Peraza PA-C - 09/12/2017 10:30 AM PST Chief Complaint Patient presents with Follow-up visit Pt is here for 6 month f/u for Pre DM and HLD. Pt states that he is having trouble with i s left leg falling aslep if he stands or sits to long. Subjective Prediabetes He has cut out soda completely. He previously was drinking 204 bottles of soda per day. He now drinks crystal light and water predominately. No longer eating white bread. Eats very little pasta. Walks some nights, brings in [place], goes to get mail. Leg/Low Back Pain Also having numbness and pain in his LLE. Shooting pain intermittent. Pain is dull and achi ng. Sometimes gets an electrical shooting pain. This has been present for years. He denies i njury or trauma to back or hip. He takes gabapentin TID and tizanidine at night to help with this. He intermittently does stretching exercises for this, which do help. Pre-DIABETES = = = = = = = = = = Severity/control: A1c - Lab Results Component Value Date A1C 5.5 09/12/2017 HYPERTENSION= = = = = = = = = = BP Readings from Last 3 Encounters: 09/12/17 110/74 03/13/17 110/78 03/09/17 (!) 152/97 HYPERCHOLESTEROLEMIA= = = = = = = = = = Lab Results Component Value Date CHOL 181 03/13/2017 LDL 112 03/13/2017 HDL 36 03/13/2017 TRI 163 03/13/2017 Patient's goal met? ===== LDL < 160 mg/dl (< 2 risk factors are present) - Yes TG <150 - No HDL >40 - No ROS/Target organ Lab Results Component Value Date CR 1.1 03/13/2017 CR 1.2 03/09/2017 CR 1.2 03/08/2017 Microalbumin RESUFAST(microalbumin,uralbumin,oqjzap75n,urcreatconc)@ normal Other CAD Risk Factors Smoking History Smoking Status Former Smoker Quit date: 03/08/2015 Smokeless Tobacco Never Used Weight Body mass index is 33.13 kg/m. Wt Readings from Last 3 Encounters: 09/12/17 87.5 kg (193 lb) 03/13/17 85.7 kg (189 lb) 03/08/17 82.4 kg (181 lb 10.5 oz) Immunizations Immunization History Administered Date(s) Administered Flu [...] orthopnea, claudication, leg swellin g and PND. Musculoskeletal: Positive for back pain. Negative for falls, joint pain, myalgias and neck pain. Neurological: Positive for tingling and sensory change. Negative for speech change, focal w eakness, loss of consciousness and weakness. Objective Physical Exam BP 110/74 | Pulse 67 | Ht 1.626 m (5' 4") | Wt 87.5 kg (193 lb) | SpO2 98% | BMI 33.13 kg/( m^2) General : 42 y.o. male well developed, [...] clubbing or cyanosis Neuro: Grossly normal, non-focal Monofilament: normal with full sensitivity in all plantar areas. Assessment Mendez was seen today for follow-up visit. Diagnoses and all orders for this visit: Prediabetes Comments: He has made some dietary changes. Will recheck a1c today. Plan return in 6 months. Orders: - HEMOGLOBIN A1C, BLOOD; Future Need for vaccination Comments: Flu host done today Orders: - STAFF TO GIVE: INFLUENZA VACC, QUADRIVALENT, 0.5 ML VIAL, IM Family history of colon cancer Comments: Referral placed to gen surg for interval colonoscopy due in October 2017. Orders: - CONSULT TO SURGERY - GENERAL Chronic left-sided low back pain with left-sided sciatica Comments: Continue gabapentin TID, tizanidine HS, stretching and meloxicam as needed. Recommend core and back strenthening, though he is pretty inactive and declines. Return in about 6 months (around 03/13/2018) for Prediabetes. Patient Instructions 1. I placed a referral to general surgery for your follow up colonoscopy. You should hear f rom them in 1-2 weeks regarding scheduling an appt. Please call our clinic if you do not hea r from them in this timeframe. 2. We will recheck your a1c today and call with results and recommendations 3. Try using vaporizer rather than water pipes for cannabis to reduce harm to your lungs 4. Return in 6 months for prediabetes follow-up, or sooner if needed 5. I recommend you work on core strengthening of your back and stomach muscles. This will h elp improve you low back and leg pain. I spent 25 minutes with patient with more than 50% of the time on counseling and care manag ement. documented in this enc ounter Plan of Treatment Not on filedocumented as of this encounter Results HEMOGLOBIN A1C, BLOOD (09/12/2017 11:26 AM PST) + +-------+ + + + | Component | Value | Ref Range | Performed | Pathologist | | | | | At | Signature | + +-------+ + + + | HEMOGLOBIN | 5.5 | % | [facility] | | | A1C | | | A MEDICAL | | | | | | CENTER | | + +-------+ + + + | ESTIMATED | 111 | mg/dL | [facility] | | | [...] Diabetic Ranges per DCCT & ADA: | [facility] | | Normal Range: <6% | [facility] | | Good Control: <7% | | | Additional action suggested: >8% Non-Diabetic | | | Ranges: 4-6% Nailhead Operator's Glycohemoglobin | | | Diabetic Ranges: [...] | And | [place] | [phone] | | [facility] | Streets | [address] | | + + + + + documented in this encounter Visit Diagnoses + + | Diagnosis | + + | Prediabetes - Primary Other abnormal glucose | + + | Need for vaccination Need for prophylactic vaccination and inoculation against | | unspecified single disease | + + | Family history of colon cancer Family history of malignant neoplasm of | | gastrointestinal tract | + + | Chronic left-sided low back pain with left-sided sciatica | + + documented in this encounter
--- OUTSIDE RECORDS SUMMARY | ~2020-05-06 | XMS | Encounter Summary ---
Demographics + + + | Address | GENERAL DELIVERY | | | [place] [address] | + + + | Home Phone [...] [place] | | | | | [address] | | + + + + + Care Team Providers + +------+ + | Care Straightening Roll Operator Name | Role | Phone | + +------+ + | Herbert Marie MD,MPH | PCP | Unavailable | + +------+ + Reason for Visit + + + | Reason | Comments | + + + | Ear problem | Pt states behind Lt ear it is sore, crusty, and itchy x 3days. Pt | | | has tried triple antibiotic ointmint and that helped with the | | | itchiness. | + + + Encounter Details +--------+---------+ + + + | Date | Type | Department | Care Team | Description | +--------+---------+ + + + | 02/20/ | Office | [facility] | Brenda Burch, | Cellulitis of skin | | 2017 | Visit | Medicine [address] | PA-C [address] | (Primary Dx) | | | | [address] [place], | [place], [place] | | | | | [place] [address] | [address] | | | | | [phone] | [phone] | | | | | | | [...] + + + | Blood Pressure | 130/72 | 02/20/2017 1:18 PM | | | | | PDT | | + + + + + | Pulse | 81 | 02/20/2017 1:18 PM | | | | | PDT | | + + + + + | Temperature | - | - | | + + + + + | Respiratory Rate | - | - | | + + + + + | Oxygen Saturation | 95% | 02/20/2017 1:18 PM | | | | | PDT | | + + + + + | Inhaled Oxygen | - | - | | | Concentration | | | | + + + + + | Weight | 87.5 kg (193 lb) | 02/20/2017 1:18 PM | | | | | PDT | | + + + + + | Height | - | - | | + + + + + | Body Mass Index | 33.13 | 11/22/2016 3:03 PM | | | | | PST | | + + + + + documented in this encounter Patient Instructions Patient Instructions Rebeca Young MA - 02/20/2017 1:00 PM PDT1. Cellulitis of skin Behind left earlobe I have prescribed bactrim to treat infection. Please keep area clean, avoid touching the ar ea (wash hands after if you do touch area). Please monitor the mild rash on your neck bilate rally for any worsening or new concerns. Follow up if any worsened pain, swelling, rash or n ew symptoms of fever, malaise or other concerns arise. documented in this encounter Progress Notes Brenda Burch PA-C - 02/20/2017 1:00 PM PDT SUBJECTIVE CC: Chief Complaint Patient presents with Ear problem Pt states behind Lt ear it is sore, crusty, and itchy x 3days. Pt has tried triple antibi otic ointmint and that helped with the itchiness. HPI: Mendez Castañeda is a 41 y.o. male here with a sore crusty spot behind his left ear. experiencing a rash on:behing left ear Symptoms have been present: 3 days. Associated symptoms: itching, crusty and sore. Pertinent negatives: no bleeding, discharge, fever, sweats, chills or other illness. Pain level on a 0 to 10 scale: 0. Precipitating events: reports no precipating events. Denies any trauma to the area or recen t piercing. No new exposures to potential allergens/contact dermatitis. Treatments tried: triple antibiotic ointment applied Effectiveness of treatment tried: without relief and possibly worsened. Review of Systems Constitutional: Negative for chills, diaphoresis, fever, malaise/fatigue and weight loss. HENT: Negative for congestion and sore throat. Eyes: Negative for blurred vision, pain, discharge and redness. Respiratory: Negative for cough, shortness of breath and wheezing. Musculoskeletal: Negative for joint pain and myalgias. Skin: Positive for itching and rash. Neurological: Negative for dizziness, sensory change, weakness and headaches. Endo/Heme/Allergies: Does not bruise/bleed easily. OBJECTIVE PHYSICAL EXAM: BP 130/72 | Pulse 81 | Wt 87.5 kg (193 lb) | SpO2 95% | BMI 33.13 kg/(m^2) General appearance: Well nourished, without distress. HEENT: Head: scalp nontender, no lesions, scars, erythema. Ears: Auricles symmetrical, nontender without masses or lesions. Behind left earlobe there is a raw appearing weeping lesion approximately 5 mm in size surrounded by 1.5 cm of erythem a/edema. Further down along left lateral nape of neck are scattered pustules which are not p ainful, draining or pruritic. Similar pustules are scattered along right lateral nape of nec k as well but are less in amount here. No rash/sore behind right ear. Mouth: Lips pink without lesions. Oropharynx without edema, erythema or exudates. Buccal m ucosa and gingiva pink, moist without hemorrhage or lesions. Neck: Bilateral anterior and posterior cervical lymphadenopathy left>right. No tonsilar, chamberlain bmandiblar, submental, or supraclavicular lymphadenopathy or tenderness. Pulm: Regular, nonlabored breathing without accessory muscle use. CTA A/P/L bilaterally wi thout wheezes, crackles, rubs or rhonchi. Nails smooth without clubbing, spooning or cyanosi s. Capillary refill < 2 seconds. Cardiac: RRR without murmur, rubs or gallops.Radial pulses 2+ and equal bilaterally. Extremities: Extremities symmetrical, uniformly light matson with equal hair distribution with out varicosities, rubor, cyanosis or ulcerations. No pitting or edema with finger pressure. Skin: Warm, smooth and firm with resilient turgor. Psych: Dressed appropriately, good eye contact, linear thought progression. ASSESSMENT/PLAN 1. Cellulitis of skin Behind left earlobe I have prescribed bactrim to treat infection. Please keep area clean, avoid touching the ar ea (wash hands after if you do touch area). Please monitor the mild rash on your neck bilate rally for any worsening or new concerns. Follow up if any worsened pain, swelling, rash or n ew symptoms of fever, malaise or other concerns arise. Discussed case with Dr. Perdomo who agrees with the assessment and plan. I, Rebeca Young [facility], am functioning as a scribe for Brenda Burch PA-C. I have reviewed and verified the above scribed note of my visit with this patient. Brenda Burch PA-C [facility] [address] [place] [address] documented in this encounter Plan of Treatment Not on filedocumented as of this encounter Visit Diagnoses + + | Diagnosis | + + | Cellulitis of skin - Primary | + + documented in this encounter"
--- OUTSIDE RECORDS SUMMARY | ~2020-05-06 | XMS | Encounter Summary ---
Demographics + + + | Address | GENERAL DELIVERY | | | [place] [address] | + + + | Home Phone [...] [place] | | | | | [address] | | + + + + + Care Team Providers + +------+ + | Care Truer Pinion And Wheel Name | Role | Phone | + [...] chickenpox | | 2016 | Encounter | [facility] [address] | ,[facility] | | | | | [address] | | | | | | [place] | | | | | | [address] | | | | | | [phone] | | | +--------+ + + + [...]
--- OUTSIDE RECORDS SUMMARY | ~2020-05-06 | XMS | Encounter Summary ---
Demographics + + + | Address | GENERAL DELIVERY | | | [place] [address] | + + + | Home Phone | | + + + | Preferred Language | Unknown | + + + | Marital Status | Single | + + + | Pentecostalism Affiliation | NRP | + + + [...] [place] | | | | | [address] | | + + + + + Care Team Providers + +------+ + | Care Extract Operator Name | Role | Phone | [...] [address] [place], | [place] [address] | | | | | [place] [address] | [phone] | | | | | [phone] | | | +--------+--------+ + + + [...]
--- OUTSIDE RECORDS SUMMARY | ~2020-05-06 | XMS | Encounter Summary ---
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 | + + + Encounter Details +--------+ + + + + | Date | Type | Department | Care Team | Description | +--------+ + + + + | 10/31/ | Emergency | Emergency | Mendez Magana, | | | 2020 | | Department at [facility] | MD [address] | | | | | Hospital [address] | [place], [place] | | | | | [place], | [address] | | | | | [place] [address] | [phone] | | | | | [phone] | | | +--------+ + + + [...] sent through Care Everywhere.Nausea and Vomi ting ([place])Abdominal Pain ([place])documented in this encounter Medications at Time of [...] + + | [facility] | [address] | [place] | [phone] | | [facility] | [address] | [address] | | + + + + + [...] | | A MEDICAL | | | EMIRATI | | | CENTER | | + +---------+ + + + | EGFR NON | >60 | >60 mL/min | [facility] | | | -ALIX | | | A MEDICAL | | | RICAN | | | CENTER | | + +---------+ + + + | ANION GAP | 13 | 7 - 16 mmol/L | [facility] | | | | | | A MEDICAL | | | | | | CENTER | | + +---------+ + + + | BUN/CREATIN | 13 | 6 - 20 | [facility] | | | INE RATIO | [...] Disease Education Program. Estimated GFR Interpretive | [facility] | | Information: <60 mL/min/1.73 [...] [facility] | And | [place] | [phone] | | [facility] | Streets | [address] | | + + + + + [...] | + + + + + | [facility] | [address] | [place], [place] | [phone] | | [facility] | [facility] | [address] | | + + + + + [...]
--- OUTSIDE RECORDS SUMMARY | ~2020-05-06 | XMS | Encounter Summary ---
Demographics + + + | Address | GENERAL DELIVERY | | | [place] [address] | + + + | Home Phone [...] [place] | | | | | [address] | | + + + + + Care Team Providers + +------+ + | Care Clerical Office Name | Role | Phone | + [...] | | | | CONSULT [place] | [address] | [address] | | | | | SURGERY - | Phone: | Phone: | | | | | GENERAL | [phone] | [phone] | | | | | | Fax: | Fax: | | | | | | [phone] | [phone] | +--------+--------+ + + + + Reason [...] for | | | | [address] [place], | [place], [place] | vaccination; Family | | | | [place] [address] | [address] | history of colon | | | | [phone] | [phone] | cancer; Chronic | | | | [...] little pasta. Walks some nights, brings in [employer], goes to get mail. Leg/Low Back Pain [...] CR 1.2 03/09/2017 CR 1.2 03/08/2017 Microalbumin RESUFAST(microalbumin,uralbumin,jowbhd41u,urcreatconc)@ normal Other CAD Risk Factors Smoking History [...] Diabetic Ranges per DCCT & ADA: | [facility] | | Normal Range: <6% | [facility] | | Good Control: <7% | | | Additional action suggested: >8% Non-Diabetic | | | Ranges: 4-6% Quality Intern's Glycohemoglobin | | | Diabetic Ranges: Normal [...] | And | [place] | [phone] | | [facility] | Streets | [address] | | + + + + + [...]
--- OUTSIDE RECORDS SUMMARY | ~2020-05-06 | XMS | Encounter Summary ---
Demographics + + + | Address | [address] DELIVERY | | | [place] [address] | + + + | Home Phone [...] [place] | | | | | [address] | | + + + + + Care Team Providers + +------+ + | Care Senior Financial Consultant Name | Role | Phone | [...] [address] | | | | [address] [place], | | [facility]) | | | | [place] [address] | | | | | | [phone] | | | +--------+--------+ + + + [...]
--- OUTSIDE RECORDS SUMMARY | ~2020-05-06 | XMS | Encounter Summary ---
Demographics + + + | Address | [place]AL DELIVERY | | | [place] [address] | + + + | Home Phone [...] [place] | | | | | [address] | | + + + + + Care Team Providers + +------+ + | Care Photographer Aerial Name | Role | Phone | + +------+ + | Nathaniel Figueroa MD,MPH | PCP | Unavailable | + +------+ + Encounter Details +--------+ + + + + | Date | Type | Department | Care Team | Description | +--------+ + + + + | 04/19/ | Hospital | Diagnostic Imaging | | | | 2015 | Encounter | at [facility] | | | | | | [address] | | | | | | [place] | | | | | | [address] | | | | | | [phone] | | | +--------+ + + + [...] | + + + | [address] [place] [address] | [facility] | | [place] [address] | [facility] | | [phone] Name: CHUCK SANTOS Phys: | RADIOLOGY | | NATHANIEL FIGUEROA : 1975 Sex: M CSN: | | | [id number] MR# [id number] Exam Date: 04/19/2016 | | | EXAM: [...] Transcribed Date/Time: 04/19/2016 | | | 14:28 Mud Grinder: VAL | | + + + + + | Procedure Note | + + | Interface, Radiology Results - 04/19/2016 2:32 PM PDT [address] | | [address] [place] [address] | | Name: CHUCK SANTOS Phys: NATHANIEL FIGUEROA : 1975 Sex: M CSN: | | [id number] MR# [id number] Exam Date: 04/19/2016 EXAM:X-RAY SPINE LUMBOSACRAL 3 [...] | | |Transcribed Date/Time: 04/19/2016 14:28 | |Mud Grinder: FLUENCY | | | | | | [...]
--- OUTSIDE RECORDS SUMMARY | ~2020-05-06 | XMS | Encounter Summary ---
Demographics + + + | Address | GENERAL DELIVERY | | | [place] [address] | + + + | Home Phone [...] [place] | | | | | [address] | | + + + + + Care Team Providers + +------+ + | Care Professor Of English Name | Role | Phone | + [...] Dx) | | | | [address] [place], | [place], [place] | | | | | [place] [address] | [address] | | | | | [phone] | [phone] | | | | | | | [...] the assessment and plan. I, Rebeca Young [facility], am functioning as a scribe for Brenda Burch PA-C. I have reviewed and verified the above scribed note of my visit with this patient. Brenda Burch PA-C [facility] [address] [place] [address] documented in this encounter Plan of Treatment Not on filedocumented as of this encounter Visit Diagnoses + + | Diagnosis | + + | Cellulitis of skin - Primary | + + documented in this encounter"
--- OUTSIDE RECORDS SUMMARY | ~2020-05-06 | XMS | Encounter Summary ---
Demographics + + + | Address | GENERAL DELIVERY | | | [place] [address] | + + + | Home Phone [...] [place] | | | | | [address] | | + + + + + Care Team Providers + +------+ + | Care Pensionholder Information Clerk Name | Role | Phone | [...] | | | | | | [place] [address] | | | | | | [phone] | | | +--------+--------+ + + + [...]
--- OUTSIDE RECORDS SUMMARY | ~2020-05-06 | XMS | Encounter Summary ---
Demographics + + + | Address | [place]AL DELIVERY | | | [place] [address] | + + + | Home Phone [...] [place] | | | | | [address] | | + + + + + Care Team Providers + +------+ + | Care Iron Handler Name | Role | Phone | + [...] | | | | disease), | | [address] | | | | | cervical | | Phone: | | | | | Chronic left | | [phone] | | | | | shoulder | [...] | | | | disease), | | [address] | | | | | cervical | | Phone: | | | | | Chronic left | | [phone] | | | | | shoulder | [...] | | 2019 | Encounter | at [facility] | DO [address] | | | | | [address] | [place] [address] | | | | | [place] | [phone] | | | | | [address] | | | | | | [phone] | | | +--------+ + + + [...] [address] | [facility] | | [place] [address] | DEPARTMENT | | [phone] Name: CHUCK SANTOS Phys: | RADIOLOGY | | ILIANA JAVED : 1975 Sex: M | | | CSN: [id number] MR# [id number] Exam Date: | | | 01/01/2019 EXAM: [...] or foraminal stenosis. C3-4: | | | Xihe-sw-ugsdrbsw diffuse disc osteophyte complex with bilateral mild [...] moderate foraminal stenosis. 3. | | | Pqzz-ao-vkxkgrsp C3-4 diffuse disc osteophyte complex with bilateral | | | mild facet arthropathy and bilateral mild foraminal stenosis. | | | REPORT SIGNED IN OTHER VENDOR SYSTEM 01/01/2019 Reported by: | | | WADE MARTÍNEZ MD Electronically signed by: WADE MARTÍNEZ | | | Transcribed Date/Time: 01/01/2019 13:49 Bristle Machine Operator: | | | FLUENCY | | + + + + + | Procedure Note | + + | Interface, Radiology Results - 01/01/2019 1:54 PM PDT [address] | | [place] [address] | | Name: CHUCK SANTOS Phys: ILIANA JAVED : 1975 Sex: M | | CSN: [id number] MR# [id number] Exam Date: 01/01/2019 EXAM:MRI OF THE CERVICAL [...] canal or foraminal | | stenosis. C3-4: Kkdj-jf-nkysidrz diffuse disc osteophyte complex with bilateralmild | [...] | central canal and bilateral moderate foraminalstenosis.3. Vjxk-tm-qktmbrjy C3-4 diffuse | | disc osteophyte complex [...] or foraminal stenosis. | | | |C3-4: Jmys-vg-xhvvkoyj diffuse disc osteophyte complex with bilateral | [...] bilateral moderate foraminal | |stenosis. | |3. Qmzb-oc-iyxjkdcr C3-4 diffuse disc osteophyte complex with | |bilateral mild facet arthropathy and bilateral mild foraminal | |stenosis. | | | | | | REPORT SIGNED IN OTHER VENDOR SYSTEM 01/01/2019 | |Reported by: WADE MARTÍNEZ MD | | | |Electronically signed by: WADE MARTÍNEZ MD | | | |Transcribed Date/Time: 01/01/2019 13:49 | |Bristle Machine Operator: FLUENCY | | | | | [...]
--- OUTSIDE RECORDS SUMMARY | ~2020-05-06 | XMS | Encounter Summary ---
Demographics + + + | Address | [address]AL DELIVERY | | | [place] [address] | + + + | Home Phone [...] [place] | | | | | [address] | | + + + + + Care Team Providers + +------+ + | Care Media Clerk Name | Role | Phone | [...] | | | | CONSULT TO | [address] | [address] | | | | | SURGERY - | Phone: | Phone: | | | | | GENERAL | [phone] | [phone] | | | | | | Fax: | Fax: | | | | | | [phone] | [phone] | +--------+--------+ + + + + Encounter Details +--------+---------+ + + + | Date | Type | Department | Care Team | Description | +--------+---------+ + + + | 10/03/ | Office | [facility] | [place] | Family history of | | 2018 | Visit | Surgery Clinic [address] | Angel Woodall MD [address] | colon cancer | | | | [address] | [address] | (Primary Dx) | | | | [place], [place] | [place], [place] | | | | | [address] | [address] | | | | | [phone] | [phone] | | | | | | | [...] other systems reviewed and are negative. A Electrical Experimental Mechanic was offered to the patient and declined. [...]
--- OUTSIDE RECORDS SUMMARY | ~2020-05-06 | XMS | Encounter Summary ---
Demographics + + + | Address | [address]AL DELIVERY | | | [place] [address] | + + + | Home Phone [...] [place] | | | | | [address] | | + + + + + Care Team Providers + +------+ + | Care Aircraft Worker Name | Role | Phone | [...] mg) | | | | [address] [place], | | | | | | [place] [address] | | | | | | [phone] | | | +--------+ + + + [...]
--- OUTSIDE RECORDS SUMMARY | ~2020-05-06 | XMS | Encounter Summary ---
Demographics + + + | Address | [address] DELIVERY | | | [place] [address] | + + + | Home Phone [...] [place] | | | | | [address] | | + + + + + Care Team Providers + +------+ + | Care Supervisor Functional Testing Name | Role | Phone | + [...] med nor high | | | | [address] | | (HCC); | | | | [phone] | | Hyperglycemia; | | | | [...] + + + | Test performed at [facility] | [facility] | | [address] [facility] | DI[place]NOST[place] - | | [place] [address] | [place] | | Power Generation Equipment Repairer BRIAN LOPES MD | | + + + + + + + + | Performing | Address | City/State/Zipcode | Phone Number | | Organization | | | | + + + + + | [facility] | [address] [facility] | [place] [address] | | | - [place] | [address] [...] a level 30 mg/dL higher than | [facility] | | that for LDL cholesterol. Cardiac Risk Ratio Interpretation: | [facility] | | Interpretation Cardiac Risk Ratio Below Average | | | Risk 0.0 - 3.4 Above Average Risk | | | 3.5 - 4.9 | | + + + + + + + + | Performing | Address | City/State/Zipcode | Phone Number | | Organization | | | | + + + + + | [facility] | | [place], [place] | [phone] | | [facility] | Streets | [address] | | + + + + + COMPLETE METABOLIC SET (NA,K,CL,CO2,BUN,CREAT,GLUC,CA,AST,ALT,BILI TOTAL,ALK PHOS,ALB,PROT TOTAL) (06/21/2016 1:46 PM PDT) + + + + + + | Component | Value | Ref Range | Performed | Pathologist | | | | | At | Signature | + + + + + + | GLUCOSE, | 101 | 70 - 105 mg/dL | [facility] | | | PLASMA | | [...] the MDRD equation recommended by the | [facility] | | National Kidney Disease Education Program. Estimated GFR | [facility] | | Interpretive Information: <60 mL/min/1.73 [...] + | [facility] | And | [place], [place] | [phone] | | MEDICAL CENTER | Street | [address] | | + + + + + [...] | ESTIMATED | 120 | mg/dL | [facility] | | | AVERAGE | [...] Diabetic Ranges per DCCT & ADA: | [facility] | | Normal Range: <6% | [facility] | | Good Control: <7% | | | Additional action suggested: >8% Non-Diabetic | | | Ranges: 4-6% Tabulating Clerk's Glycohemoglobin | | | Diabetic Ranges: Normal Range: | | | 4.0-6.0% Good Control: | | | 6.0-8.0% Poor Control: | | | >8.0% | | + + + + + + + + | Performing | Address | City/State/Zipcode | Phone Number | | Organization | | | | + + + + + | [facility] | And | [place], [place] | [phone] | | [facility] | [facility] | [address] | | + + + + + [...] /Chaka | | | | | | [id number] | | | | | | Gamaliel | | | | | | [place] | | | | | | [place] | | | | | | [address] | | | | + + + [...] + + | [facility] | [address] [facility] | [place] [address] | | | - [place] | [address] [...]
--- OUTSIDE RECORDS SUMMARY | ~2020-05-06 | XMS | Encounter Summary ---
Demographics + + + | Address | GENERAL DELIVERY | | | [place] [address] | + + + | Home Phone [...] Author + + + | Author | [facility] | + + + | Organization | [facility] | + + + | Address | Unknown | + + + | Phone | Unavailable | + + + Support + + + + + | Name | Relationship | Address | Phone | + + + + + | Neda Castañeda | ECON | [place] | | | | | [address] | | + + + + + Care Team Providers + +------+ + | Care Bi Application Developer Name | Role | Phone | [...] | | | | | [place] [address] | | | | | | [phone] | | | | | | | [...] | FASTING? | N/A | HR | [facility] | | | | | [facility] | | | | | | [facility]ENTER | | + + + + + + + + | Specimen | + + | | + + + + + + + | Performing | Address | City/State/Zipcode | Phone Number | | Organization | | | | + + + + + | [facility] | [address] [place] | [place], [place] | [phone] | | MEDICAL CENTER | Streets | [address] | | + + + + + | [facility] | [address] | [place], [place] | | | MEDICAL CENTER | Streets | [address] | | + + + + + documented in this encounter Visit Diagnoses Not on filedocumented in this encounter"
--- OUTSIDE RECORDS SUMMARY | ~2020-05-06 | XMS | Encounter Summary ---
Demographics + + + | Address | [address]AL DELIVERY | | | [place] [address] | + + + | Home Phone [...] [place] | | | | | [address] | | + + + + + Care Team Providers + +------+ + | Care Library Assistant Name | Role | Phone | [...] ([employer] ) | | | | [place], | | | | | | [place] [address] | | | | | | [phone] | | | +--------+--------+ + + + [...]
--- OUTSIDE RECORDS SUMMARY | ~2020-05-06 | XMS | Encounter Summary ---
Demographics + + + | Address | [address]AL DELIVERY | | | [place] [address] | + + + | Home Phone [...] [place] | | | | | [address] | | + + + + + Care Team Providers + +------+ + | Care Wage And Salary Administrator Name | Role | Phone | [...]
--- OUTSIDE RECORDS SUMMARY | ~2020-05-06 | XMS | Encounter Summary ---
Demographics + + + | Address | GENERAL DELIVERY | | | [place] [address] | + + + | Home Phone [...] [place] | | | | | [address] | | + + + + + Care Team Providers + +------+ + | Care Visual Communications Instructor Name | Role | Phone | [...] [place] | | | | | | [address] | | | | | | [phone] | | | +--------+ + + + [...] SOURCE | [place] | | [facility] | | | | | | A [...] + + + | [facility] | [place] | [place] | [phone] | | MEDICAL CENTER | [address] | [address] | | + + + + + documented in this encounter Visit Diagnoses Not on filedocumented in this encounter"
[~2020-05-06 10:27] MED LIST changes: +DICYCLOMINE HCL10 MG PO; +GABAPENTIN300 MG PO; +OMEPRAZOLE20 MG PO; +PROMETHAZINE HC25 M1 PO; +ZANAFLEX4 MG PO
== END 2020-05-06 11:43 | disposition home or self-care (01) ==
LOC: ED 10:27
DX: R31.0 Gross hematuria (principal); Z88.0 Allergy status to penicillin; Z79.899 Other long term (current) drug therapy
CPT/HCPCS: 74176; 80053; 81001; 85025; 85610; 85730; 99284-25